=== PATIENT | female | born 1995 | race Caucasian/White ===

== ENCOUNTER → 2018-03-24 18:35 | Emergency (ER) | payer SELFPAY ==
[2018-03-24 18:36] VITALS: BP 109/65; PULSE 106; RESP 16; TEMP 36.4; O2SAT 97; BMI 24.1
--- NOTE | 2018-03-24 23:13 | ED.RN ---
1934 PT LEFT SAYING THAT SHE CAN'T WAIT ANY LONGER AND WALKED OUT THE DOOR.EMPATHY GIVEN.
== END ==
DX: R69 Illness, unspecified (principal); Z53.21 Procedure and treatment not carried out due to patient leaving prior to being seen by health care provider

== ENCOUNTER 2020-11-30 15:47 | Emergency (ER) | payer MEDICAID, SELFPAY ==
[2020-11-30 15:48] VITALS: BP 134/78; PULSE 93; RESP 16; TEMP 36.6; O2SAT 98; BMI 34.4
--- NOTE | 2020-11-30 16:08 | ED.VIS.FEGU ---
HPI HPI - Female History of Present Illness Chief Complaint: Vag Bld, Preg Informant: patient Pain Pain: Positive for Pelvic Pain Onset: Days Context: Gradual Onset Timing: Intermittent Quality: Positive for Cramping Current Severity: Mild Maximum Severity: Mild Bleeding Issue: Positive for Vaginal bleeding Onset: Yesterday Context: Gradual Onset Timing: Intermittent Current Severity: Spotting and Mild Severity: Mild Associated Symptoms Associated Symptoms: Negative for Dysuria Test: Positive, Urine and Home Sexually: Positive for Active Control: No control P: 2 Ab: 1 Narrative Narrative: home positive urine test.24-year-old female past medical history of factor V Leiden, seizure disorder, depression anxiety and borderline personality. States she thinks she is about 4 weeks . Has had no care. She is on She is Ab1. States that she started having spotting last night and today bleeding and cramping. Cramping is been gone last several days. No dysuria no fever. gynecological surgeries. Has had 1 prior miscarriage. No prior Prior similar symptoms: Yes Recent Illness/Hospitalization: No PFSH PFSH Allergy/AdvReac Type Severity Reaction Status Date / Time No Known Allergies Allergy Verified 11/30/20 15:49 Social History Smoking Status: Never smoker ROS ROS ED ROS Narrative No recent illness. Review of Systems ROS Unobtainable: Denies due to encephalopathy Constitutional Constitutional ED: Denies chills or fever(s) Eyes Eyes: Denies change in vision ENT ENT ED: Denies ear pain or sore throat Cardiovascular Cardiovascular: Denies chest pain Respiratory/Chest Respiratory/Chest: Denies cough or dyspnea Gastrointestinal Gastrointestinal: Reports abdominal pain; Denies diarrhea, nausea or vomiting Genitourinary Genitourinary ED: Denies dysuria Musculoskeletal Musculoskeletal: Denies myalgias Integumentary Denies rash Neurologic Neurologic: Denies headache(s) Psychiatric Psychiatric: Reports anxiety and depression Endocrine Endocrinology: Denies polyuria Hematologic/Lymphatic Hematologic/Lymphatic: Denies easy bruising Allergic/Immunologic Allergic/Immunologic ED: Denies urticaria EXAM Physical Exam Narrative Exam Narrative: Healthy female no acute distress. Vital signs stable afebrile. Lungs are clear. Heart regular rate and rhythm. Abdomen soft nontender. On Eliquis moving all 4 extremities. No edema. Const Vital Signs: 11/30/20 15:48 Temperature 97.8 F Temperature Source Temporal Pulse Rate 93 Respiratory Rate 16 Blood Pressure 134/78 H Blood Pressure Mean 96 Pulse Ox 98 Oxygen Delivery Method Room Air Positive well nourished and well developed General Appearance ED: well developed HEENT Reports moist mucous membranes Negative for tenderness Eyes PERRL and EOMs intact bilaterally Neck no lymphadenopathy, supple and no JVD Thyroid: Negative for tender Chest Wall inspection of chest normal and palpation of chest normal Resp normal respiratory effort and clear to auscultation bilaterally Cardio regular rate, regular rhythm, S1 normal heart sound, no murmurs and no JVD GI normal to inspection, nondistended, normoactive bowel sounds, soft to palpation, non-tender and non-distended Auscultation: normoactive bowel sounds no CVA tenderness Extremity normal to inspection and full ROM General Extremety ED: Negative for edema or tenderness General Extremity: Negative for edema Neuro oriented x3, CN's II-XII intact bilaterally and no sensory deficits noted Sensorium / Orientation: alert, oriented to person, oriented to place and oriented to time Psych mental status grossly normal Mood & Affect: Negative for depressed or tearful Skin no rashes or lesions noted and no wounds MDM MDM MDM Narrative Medical decision making narrative: Female believes she is Ab1 with cramping and vaginal bleeding. Concern obviously for miscarriage versus ectopic versus other etiologies. Labs along with an ABO Rh, UA and ultrasound are pending. Lab Data Attestation: I reviewed the patient's lab results. Lab results narrative: H&H normal hemoglobin 13. UA with blood but otherwise no signs of infection is most likely contaminant from the vaginal bleeding. Blood type A - positive. Quant was less than 1 so the patient was either never or has had a miscarriage. Labs: Laboratory Results - last 24 hr 11/30/20 11/30/20 11/30/20 16:50 17:01 17:01 Hgb 13.3 Hct 41.4 HCG, Quant < 1 Urine Color Yellow Urine Clarity Clear Urine pH 6.[address] [place] 1.020 Urine Protein Negative Urine Glucose (UA) Normal Urine Ketones Negative Urine Occult Blood 250 H Urine Nitrite Negative Urine Bilirubin Negative Urine Urobilinogen Normal Ur Leukocyte Esterase Negative Urine RBC 0-5 SEEN Urine WBC 0 SEEN Ur Squamous Epith Cells 0-5 SEEN Urine Bacteria RARE Urine Mucus 0 SEEN Blood Type 11/30/20 11/30/20 17:01 17:01 Hgb Hct HCG, Quant Urine Color Urine Clarity Urine pH Ur Specific [place] Urine Protein Urine Glucose (UA) Urine Ketones Urine Occult Blood Urine Nitrite Urine Bilirubin Urine Urobilinogen Ur Leukocyte Esterase Urine RBC Urine WBC Ur Squamous Epith Cells Urine Bacteria Urine Mucus Blood Type TNP A POSITIVE Discharge Plan Triage Chief Complaint: Vag Bld, Preg ED Provider: Morris Lynn Dx/Rx/DC Orders Clinical Impression: Vaginal bleeding, Spontaneous miscarriage Instructions: ED Dysfunctional Uterine Bleeding, ED MISCARRIAGE Completed Primary Care Provider: Bharat Villagomez Referrals: Bharat Villagomez DO [Primary Care Provider] - As Needed Activity Restrictions/Additional Instructions: Your labs are unremarkable. Your test is negative. You are either never are just having some vaginal bleeding with a late menstrual cycle or you were had a miscarriage. Follow-up with your TILLER MAN. For your information your blood type is a positive. Disposition Disposition: Home, self care
[2020-11-30 16:57] LABS: Mucous, Urine 0 SEEN /hpf (<or=2+); White Blood Cells 0 SEEN /hpf (0-5)
[2020-11-30 16:58] LABS: Color, Urine Yellow (Yellow); Glucose, Dipstick Normal (Normal); Ketone-Dipstick Negative (Negative); Leukocyte Esterase-Dipstick Negative /ul (Negative); Nitrite-Dipstick Negative (Negative); Occult Blood-Urine 250 /ul (Negative); Protein-Dipstick Negative (Negative); Urine Bilirubin Dipstick Negative (Negative); Urine Clarity Clear (Clear); Urine Urobilinogen Normal (Normal)
[2020-11-30 17:04] LABS: Bacteria RARE /hpf (None Seen); Red Blood Cells-Urine 0-5 SEEN /hpf (0-5); Squamous Epithelial Cells - UA 0-5 SEEN /hpf (5-10)
[2020-11-30 17:23] LABS: Hematocrit 41.4 % (37-47); Hemoglobin 13.3 g/dL (12.0-15.0)
[2020-11-30 18:06] LABS: hCG Titer Quant., Serum < 1 mIU/mL (1-3)
== END 2020-11-30 18:58 | disposition home or self-care (01) ==
PROVIDERS: Emergency Provider Emergency Medicine; PCP Family Medicine
DX: O03.9 Complete or unspecified spontaneous abortion without complication (principal)
CPT/HCPCS: 81001; 84702; 85014; 85018; 86900; 86901; 99283

== ENCOUNTER 2021-07-12 12:49 | Emergency (ER) | payer MEDICAID, SELFPAY ==
[2021-07-12 12:49] VITALS: BP 137/83; PULSE 95; RESP 18; TEMP 36.4; O2SAT 100; BMI 35.2
--- NOTE | 2021-07-12 13:13 | US_ITS ---
STUDY: FIRST TRIMESTER OBSTETRICAL ULTRASOUND REASON FOR EXAM: Female, 25 years old Bleeding, Pain LMP: 05/29/2021. TECHNIQUE: Transvaginal TECHNICAL QUALITY: Adequate. PRIOR ULTRASOUND: None. FINDINGS: There is no demonstrated intrauterine gestational sac. There is no demonstrated yolk sac. The placenta is non-visualized. There is no demonstrated embryo ( pole). The estimated gestation age (EGA) by LMP is 6 weeks, 2 days. The estimated date of delivery (JANE) by LMP is 03/05/2022. The uterus measures 6.7 cm x 5.4 cm x 4.2 cm. The endometrium measures 7.2 mm. There is an 8 mm x 8 mm x 5 mm fibroid in the body of the uterus. The cervix is closed. The right ovary is not visualized. The left ovary measures 2.7 cm x 2.6 cm x 2.4 cm. There is no left ovarian cyst. There is no visualized left adnexal mass or complex lesion. There is minimal fluid in the cul de sac. US/Transvaginal w/Preg US IMPRESSION: No intrauterine gestational sac is seen. Electronically Signed: Perez Call MD at 15:26 EST ,
--- NOTE | 2021-07-12 13:14 | EDS_ITS ---
HPI <Roly Dubon MD - Last Filed: 07/17/21 14:01> HPI - Female History of Present Illness Chief Complaint: Vag Bld, Preg Narrative Narrative: Patient is a G5, P2 at approximately 6 weeks gestation. She states she saw her CLEANING TEAM MEMBER in [facility] approximately a week ago where they thought that she was only 5 weeks . She had an ultrasound 2 to 3 days ago which showed her at approximately 6 weeks 1 day. She states her last menstrual period was in late April. She thought she was 8 weeks , but according to ultrasound was not. At the time that she was seen she was having vaginal bleeding and cramping. She states after she came home from her appointment, she had increased cramping and is bleeding changing her pad every other hour. [place] lightheaded. While she was told that the baby still had a heartbeat, if she had more bleeding and cramping that she should come to the emergency department for after hours. She presents today because of the continued pain, cramping, and bleeding. When she went to the bathroom prior to arrival she passed a large clot. She has had previous miscarriages and elective . She states she does not really have an established CLEANING TEAM MEMBER. She has been doing home tests and they are getting latrine cleaner. PFSH <Roly Dubon MD - Last Filed: 07/17/21 14:01> [facility] Medical History no medical history Allergy/AdvReac Type Severity Reaction Status Date / Time No Known Allergies Allergy Verified 07/12/21 12:51 Social History Smoking Status: Never smoker ROS <Roly Dubon MD - Last Filed: 07/17/21 14:01> ROS ED ROS Narrative Constitutional: No fever, no chills. HEENT: No sore throat. No neck pain. No loss of vision. No rhinorrhea. Cardiovascular: No chest pain. No palpitations. No pedal edema. Respiratory: No cough, no shortness of breath. Abdominal: Cramping abdominal pain. No nausea. No vomiting. Genitourinary: No dysuria. No hematuria. Positive vaginal bleeding, passing large clot. Musculoskeletal: No myalgias. No arthralgias. Neurologic: No headaches. No dizziness. Positive lightheadedness. Skin: No rash. No change in color. Psychiatric: No depression. No anxiety. EXAM <Roly Dubon MD - Last Filed: 07/17/21 14:01> Physical Exam Narrative Exam Narrative: Afebrile. Vital signs noted. HEENT: Normocephalic. Atraumatic. PERRL, EOMI. Neck soft and supple. No point tenderness or step off. Cardiovascular: Regular rate and rhythm. No murmurs, rubs, or gallops appreciated. Respiratory: No tachypnea. Lungs clear to auscultation bilaterally. Gastrointestinal: Abdomen soft, nontender, with normoactive bowel sounds. No rebound or guarding. Genitourinary: Chaperoned pelvic examination shows external blood with a mild amount of blood in the vaginal vault. Minimal suprapubic discomfort, no cervical motion tenderness. No adnexal tenderness. Neurological: Awake. Alert. Nonfocal, nonlateralizing. Skin: No rash. Normal color. No pallor. Musculoskeletal: No pedal edema. Full range of motion extremities. Const Vital Signs: 07/12/21 12:49 07/12/21 17:58 Temperature 97.5 F L Temperature Source Temporal Pulse Rate 95 Respiratory Rate 18 14 Blood Pressure 137/83 H Blood Pressure Mean 101 Pulse Ox 100 Oxygen Delivery Method Room Air <Dr. Osvaldo Terrell DO - Last Filed: 07/12/21 18:06> Physical Exam Const Vital Signs: 07/12/21 12:49 07/12/21 17:58 Temperature 97.5 F L Temperature Source Temporal Pulse Rate 95 Respiratory Rate 18 14 Blood Pressure 137/83 H Blood Pressure Mean 101 Pulse Ox 100 Oxygen Delivery Method Room Air MDM <Roly Dubon MD - Last Filed: 07/17/21 14:01> [facility] Narrative Medical decision making narrative: Chaperoned pelvic exam will be performed. This was documented in the physical exam. She has normal white count of 7.9, hemoglobin normal at 13.6, normal platelet count of 288. hCG quantitative measurement is low for her weeks gestation at 102. Blood type is A+. I do feel that she may have had a miscarriage given her low beta quantitative measurement. Her expected for 6 to 8 weeks is 15,000-200,000. She states that she prefers to follow-up with her CLEANING TEAM MEMBER at [facility]. The results of her ultrasound are currently pending.At this point in time, Patient signed out to the oncoming physician to check the ultrasound results and make final disposition. Should her ultrasound results show no IUP, with a quant of 102, I do feel that she most likely had a spontaneous miscarriage. In discussion with the patient once again, she states she would like to follow-up with her own OB. Patient signed out to oncoming physician in stable condition. Lab Data Labs: Laboratory Results - last 24 hr 07/12/21 07/12/21 07/12/21 14:05 14:05 14:05 WBC 7.9 RBC 4.78 Hgb 13.6 Hct 42.1 MCV 88.1 MCH 28.5 MCHC 32.3 RDW Std Deviation 43.6 RDW Coeff of Cheryl 13.3 Plt Count 288 MPV 9.7 Immature Gran % (Auto) 0.100 Neut % (Auto) 69.3 Lymph % (Auto) 21.8 [place] % (Auto) 7.8 Eos % (Auto) 0.6 Baso % (Auto) 0.4 Absolute Neuts (auto) 5.5 Absolute Lymphs (auto) 1.73 Nucleated RBC % 0 HCG, Quant 102 H Blood Type A POSITIVE Radiography Diagnostic Testing: Clinical Impression(s) from Imaging Studies Obstetrics Ultrasound 07/12/21 13:13 IMPRESSION: No intrauterine gestational sac is seen. Electronically Signed: Perez Call MD at 15:26 EST Reading Location ID and State: [address] [facility] , Service support , <Dr. Osvaldo Terrell, DO - Last Filed: 07/12/21 18:06> [facility] Narrative Medical decision making narrative: Patient signed out to me for follow-up on obstetrics ultrasound. This is read by the radiologist as no intrauterine gestational sac. It is reviewed that her hCG is 102. This likely represents complete miscarriage. Patient states that she will follow up with [facility] for her OB care. She is counseled if she has any fevers or increased pelvic pain to return to the emergency room. Lab Data Attestation: I reviewed the patient's lab results. Labs: Laboratory Results - last 24 hr 07/12/21 07/12/21 07/12/21 14:05 14:05 14:05 WBC 7.9 RBC 4.78 Hgb 13.6 Hct 42.1 MCV 88.1 MCH 28.5 MCHC 32.3 RDW Std Deviation 43.6 RDW Coeff of Cheryl 13.3 Plt Count 288 MPV 9.7 Immature Gran % (Auto) 0.100 Neut % (Auto) 69.3 Lymph % (Auto) 21.8 [place] % (Auto) 7.8 Eos % (Auto) 0.6 Baso % (Auto) 0.4 Absolute Neuts (auto) 5.5 Absolute Lymphs (auto) 1.73 Nucleated RBC % 0 HCG, Quant 102 H Blood Type A POSITIVE Radiography Diagnostic Testing: Clinical Impression(s) from Imaging Studies Obstetrics Ultrasound 07/12/21 13:13 IMPRESSION: No intrauterine gestational sac is seen. Electronically Signed: Perez Call MD at 15:26 EST Reading Location ID and State: [address] [place] [address] , Service support , Discharge Plan Triage Chief Complaint: Vag Bld, Preg ED Provider: Roly Dubon Dx/Rx/DC Orders Clinical Impression: Spontaneous miscarriage Instructions: ED MISCARRIAGE Completed Primary Care Provider: Bharat Villagomez Referrals: Bharat Villagomez DO [Primary Care Provider] - Disposition Disposition: Home, Self Care Discharge Date/Time: 07/12/21 18:08
[2021-07-12 14:18] LABS: Absolute Lymphocyte Count 1.73 X10^3/uL (0.83-4.51); Absolute Neutrophil Count 5.5 X10^3/uL (2.0-7.7); Basophil# 0.03 X10^3/uL; Basophil% 0.4 % (0-1); Eosinophil# 0.05 X10^3/uL; Eosinophils% 0.6 % (0-5); Hematocrit 42.1 % (37-47); Hemoglobin 13.6 g/dL (12.0-15.0); Lymphocyte # 1.73 X10^3/ul (0.83-4.51); Lymphocyte % 21.8 % (19-41); Mean Corp Hgb Conc 32.3 g/dL (32-36); Mean Corpuscular Hgb 28.5 pg (27.0-32.0); Mean Corpuscular Volume 88.1 fL (81-99); Mean Platelet Vol. 9.7 fl (6.2-12.0); Monocyte# 0.62 X10^3/uL; Monocyte% 7.8 % (0-10); NRBC Flagged by Analyzer 0 % (0-5); Neutrophil % 69.3 % (47-70); Platelet Count 288 K/mm3 (150-450); RBC Distribution Width CV 13.3 % (11.6-14.6); RBC Distribution Width SD 43.6 fl (35.1-43.9); Red Blood Count 4.78 M/mm3 (4.2-5.4); White Blood Count 7.9 K/mm3 (4.4-11.0)
[2021-07-12 14:27] LABS: hCG Titer Quant., Serum 102 mIU/mL (1-3)
[2021-07-12 17:58] VITALS: RESP 14
[2021-07-12 18:08] VITALS: BP 133/74; PULSE 81; RESP 14; O2SAT 99
== END 2021-07-12 18:08 | disposition home or self-care (01) ==
PROVIDERS: Emergency Provider Emergency Medicine; PCP Family Medicine; Visit Provider Emergency Medicine
DX: O03.9 Complete or unspecified spontaneous abortion without complication (principal)
CPT/HCPCS: 76817; 84702; 85025; 86900; 86901; 99285; A4216

== ENCOUNTER 2022-02-12 11:38 | Emergency (ER) | payer MEDICAID, SELFPAY ==
[2022-02-12 11:39] VITALS: BP 129/69; PULSE 84; RESP 16; TEMP 36.7; O2SAT 98; BMI 32.4
--- NOTE | 2022-02-12 11:59 | ED.VIS.FEGU ---
HPI HPI - Female History of Present Illness Chief Complaint: Vag Bleeding Informant: patient Bleeding Issue: Positive for Vaginal bleeding and Passing clots Onset: Today and Hours Context: Gradual Onset Timing: Continuous Current Severity: Similar to period Associated Symptoms Associated Symptoms: Negative for Dysuria P: 2 Ab: 3 Narrative Narrative: 26-year-old female complaining of heavier than normal vaginal bleeding. States her menstrual periods are typically irregular. She is only passing small clots. She called her COMPLIANCE ENGINEER office today when you are evaluated. States she is a little lightheaded. She has a history of factor V Leiden she is not on any blood thinners. She is G5, P2 AB 3 with 1 of those being elective AB. She denies any easy bruising or bloody noses. She is never needed a blood transfusion. Prior similar symptoms: Yes Recent Illness/Hospitalization: No PFSH PFSH Home Medications buspirone 15 mg tablet 15 mg PO BID 02/12/22 [History Last Taken Unknown] lurasidone 80 mg tablet (Latuda) 80 mg PO DAILY 02/12/22 [History Last Taken Unknown] Allergy/AdvReac Type Severity Reaction Status Date / Time No Known Allergies Allergy Verified 02/12/22 11:43 Social History Smoking Status: Current every day smoker tobacco type: cigarettes ROS ROS ED ROS Narrative Vaginal bleeding. Review of Systems ROS Unobtainable: Denies due to encephalopathy Constitutional Constitutional ED: Denies chills or fever(s) Eyes Eyes: Denies blurry vision ENT ENT ED: Denies ear pain Cardiovascular Cardiovascular: Denies chest pain Gastrointestinal Gastrointestinal: Denies abdominal pain Genitourinary Genitourinary ED: Denies dysuria Musculoskeletal Musculoskeletal: Denies arthralgias Integumentary Denies abscess Neurologic Neurologic: Denies headache(s) Psychiatric Psychiatric: Denies anxiety Endocrine Endocrinology: Denies heat intolerance Hematologic/Lymphatic Hematologic/Lymphatic: Denies easy bleeding, easy bruising or lymphadenopathy Allergic/Immunologic Allergic/Immunologic ED: Denies mouth swelling or tongue swelling EXAM Physical Exam Narrative Exam Narrative: 26-year-old female no acute distress vital signs stable afebrile. Initial blood pressure 120/69. Heart rate 84. H EENT exam unremarkable. Lungs are clear. Heart regular rhythm rate about 84 no murmur. Abdomen soft nontender. Moving all 4 extremities. Neurologically she is awake and alert. Benign exam. Const Vital Signs: 02/12/22 11:39 Temperature 98.1 F Temperature Source Temporal Pulse Rate 84 Respiratory Rate 16 Blood Pressure 129/69 H Blood Pressure Mean 89 Pulse Ox 98 Oxygen Delivery Method Room Air Positive well nourished, well developed and obese; Negative for cachectic, contractures or unkempt General Appearance ED: well developed and NAD; Negative for unkempt, cachectic or contractures Nutritional Appearance: obese; Negative for cachectic HEENT Reports moist mucous membranes Negative for trauma or tenderness Eyes PERRL and EOMs intact bilaterally General Eye ED: Negative for pale conjunctiva or scleral icterus Neck no lymphadenopathy, supple and no JVD General: Negative for other Thyroid: Negative for tender Lymph Lymphatic: Negative for other Chest Wall inspection of chest normal and palpation of chest normal Chest: Negative for other Resp normal respiratory effort and clear to auscultation bilaterally Effort and Inspection: Negative for pain with movement Auscultation: Negative for rales, rhonchi or wheezes Cardio regular rate, regular rhythm, S1 normal heart sound, no murmurs and no JVD Rate: Negative for bradycardia Rhythm: Negative for abnormal rhythm GI normal to inspection, nondistended, normoactive bowel sounds, soft to palpation, non-tender, non-distended and no masses Auscultation: normoactive bowel sounds Palpation: Negative for tender, guarding or rigid Back/Spine no CVA tenderness Cervical Spine: Negative for cervical spine tenderness Thoracic Spine / Upper Back: Negative for thoracic spinal tenderness Lumbar Spine / Lower Back: Negative for lumbar spinal tenderness Extremity normal to inspection and full ROM General Extremety ED: Negative for edema or tenderness General Extremity: Negative for edema Neuro oriented x3 and CN's II-XII intact bilaterally Sensorium / Orientation: alert, oriented to person, oriented to place and oriented to time; Negative for confused, lethargic or stuporous Motor Exam: strength 5/5 throughout Psych mental status grossly normal Appearance: Negative for unkempt Attitude: No agitated Speech: No other Mood & Affect: Negative for depressed Skin no rashes or lesions noted and no wounds General Skin Exam: Negative for jaundice Rashes: No rashes noted Trauma: Negative for other MDM MDM MDM Narrative Medical decision making narrative: 26-year-old with vaginal bleeding. CBC and serum test will be obtained. She will be treated with a liter normal saline. Pelvic exam will be performed. Repeat exam at 2:30 PM patient doing well. She is improved with bag of IV fluids. Over test results. We discussed the pelvic exam she deferred at this time we will follow-up with her COMPLIANCE ENGINEER. Lab Data Attestation: I reviewed the patient's lab results. Lab results narrative: CBC normal white count of 5.9. H&H of 12 and 37.3. Platelets 310. Serum test negative. Labs: Laboratory Results - last 24 hr 02/12/22 02/12/22 12:49 12:49 WBC 5.9 RBC 4.15 L Hgb 12.0 Hct 37.3 MCV 89.9 MCH 28.9 MCHC 32.2 RDW Std Deviation 45.1 H RDW Coeff of Cheryl 13.6 Plt Count 310 MPV 10.2 Serum , Qual NEGATIVE Discharge Plan Triage Chief Complaint: Vag Bleeding ED Provider: Morris Lynn Dx/Rx/DC Orders Clinical Impression: Abnormal vaginal bleeding Instructions: ED Dysfunctional Uterine Bleeding Prescriptions: No Action buspirone 15 mg tablet 15 mg PO BID Label Comments: TAKE 1 TABLET BY MOUTH TWICE DAILY Latuda 80 mg tablet 80 mg PO DAILY Label Comments: TAKE 1 TABLET BY MOUTH ONCE DAILY WITH FOOD(AT LEAST 350 CALORIES) Primary Care Provider: Bharat Villagomez Referrals: Bharat Villagomez DO [Primary Care Provider] - Activity Restrictions/Additional Instructions: Motrin and Tylenol for any pelvic pain or cramping. Plenty of fluids and rest. Follow-up with your OB for further evaluation. They can do a pelvic exam if needed. They can recheck your blood count if needed. They can do an ultrasound if needed. Disposition Disposition: Home, Self Care
[2022-02-12] MEDS: 0.9% Normal Saline 1,000 ML 1000 ML IV (12:53)
[2022-02-12 13:00] LABS: Hematocrit 37.3 % (37-47); Mean Corp Hgb Conc 32.2 g/dL (32-36); Mean Corpuscular Hgb 28.9 pg (27.0-32.0); Mean Corpuscular Volume 89.9 fL (81-99); Mean Platelet Vol. 10.2 fl (6.2-12.0); Platelet Count 310 K/mm3 (150-450); RBC Distribution Width CV 13.6 % (11.6-14.6); RBC Distribution Width SD 45.1 fl (35.1-43.9); Red Blood Count 4.15 M/mm3 (4.2-5.4); White Blood Count 5.9 K/mm3 (4.4-11.0)
[2022-02-12 13:25] LABS: Internal QC Validated? YES +Cl - CLEAR BKGD; Pregnancy, Serum, hCG Quali. NEGATIVE Negative
== END 2022-02-12 14:46 | disposition home or self-care (01) ==
PROVIDERS: Emergency Provider Emergency Medicine; PCP Family Medicine; Visit Provider Emergency Medicine
DX: N93.9 Abnormal uterine and vaginal bleeding, unspecified (principal); D68.51 Activated protein C resistance; F17.210 Nicotine dependence, cigarettes, uncomplicated
CPT/HCPCS: 84703; 85027; 96360; 99283; J7030; A4216

== ENCOUNTER 2022-04-27 10:28 | Emergency (ER) | payer MEDICAID, SELFPAY ==
[2022-04-27 10:30] VITALS: BP 126/71; PULSE 90; RESP 18; TEMP 36.7; O2SAT 98; BMI 32.5
--- NOTE | 2022-04-27 10:40 | US_ITS ---
EXAM: US , TRANSVAGINAL CLINICAL INDICATION: vaginal bleeding, abdominal pain TECHNIQUE: Real-time transvaginal obstetrical ultrasound of the maternal pelvis and a first trimester with image documentation. Transvaginal imaging was used for better evaluation of the fetus and adnexa. This report was created using [employer] report generation technology. COMPARISON: None. FINDINGS: GESTATION: Intrauterine gestational sac contains a 2.1 cm embryo with a cardiac rate of 174 bpm. 3.7 mm sac. PLACENTA/AMNIOTIC FLUID: Cannot be adequately evaluated due to the early gestational age. UTERUS/CERVIX: Normal. No myometrial mass. OVARIES: Right ovary measures 4.0 x 2.1 x 2.8 cm. Left ovary measures 1.8 x 1.2 x 1.0 cm. No mass. FREE FLUID: No adnexal mass or free pelvic fluid. US/Transvaginal w/Preg US IMPRESSION: Single live 8 week 4 day intrauterine gestation with ultrasound EDC of December 03, 2022. Electronically Signed: Dimitri Lobo MD at 12:37 EST ,
--- NOTE | 2022-04-27 10:40 | ED.VIS.FEGU ---
HPI HPI - Female History of Present Illness Chief Complaint: Vag Bld, Preg Detail of Chief Complaint: Vaginal bleeding and lower abdominal pain with Informant: patient Narrative Narrative: Patient presents to the emergency department with complaint of vaginal bleeding that she had last evening. Patient states that she passed some mucus that looked like a mucous plug. Patient thinks she is about 9 weeks . Patient had a pelvic ultrasound 2 weeks ago that showed a viable with heartbeat. Patient tells me she has had multiple miscarriages in the past and she is . Patient believes she is about 9 weeks . She denies dysuria. Patient states she is not currently bleeding but passing some stringy mucus. Patient complains of some mild discomfort to the left lower quadrant. Patient has not had a fever. PFSH PFSH Home Medications buspirone 15 mg tablet 15 mg PO BID 02/12/22 [History Last Taken Unknown] lurasidone 80 mg tablet (Latuda) 80 mg PO DAILY 02/12/22 [History Last Taken Unknown] Allergy/AdvReac Type Severity Reaction Status Date / Time No Known Allergies Allergy Verified 04/27/22 10:30 Social History Smoking Status: Current every day smoker tobacco type: cigarettes ROS ROS ED Review of Systems ROS Unobtainable: other Constitutional Constitutional ED: Reports lethargy; Denies chills, fever(s), sweats or weight loss Eyes Eyes: Denies blurry vision, change in vision or diplopia ENT ENT ED: Denies rhinorrhea or sore throat Cardiovascular Cardiovascular: Denies chest pain, orthopnea or racing heartbeat Respiratory/Chest Respiratory/Chest: Denies cough, dyspnea, dyspnea on exertion, orthopnea or sputum Gastrointestinal Gastrointestinal: Reports abdominal pain; Denies diarrhea, nausea or vomiting Genitourinary Genitourinary ED: Reports other Details: Vaginal bleeding ; Denies dysuria, hematuria or urinary frequency Musculoskeletal Musculoskeletal: Denies arthralgias, back pain, myalgias or neck pain Integumentary Denies abscess, Abrasions or rash Neurologic Neurologic: Denies headache(s) or weakness Psychiatric Psychiatric: Denies anxiety, depression or suicidal thoughts Endocrine Endocrinology: Denies polydipsia, polyphagia or polyuria Hematologic/Lymphatic Hematologic/Lymphatic: Denies easy bleeding, easy bruising or lymphadenopathy Allergic/Immunologic Allergic/Immunologic ED: Denies mouth swelling, tongue swelling or urticaria EXAM Physical Exam Const Vital Signs: 04/27/22 10:30 Temperature 98.1 F Temperature Source Temporal Pulse Rate 90 Respiratory Rate 18 Blood Pressure 126/71 H Blood Pressure Mean 89 Pulse Ox 98 Oxygen Delivery Method Room Air Positive well nourished and well developed General Appearance ED: well developed and NAD HEENT Reports TM's clear and moist mucous membranes normocephalic and atraumatic; Negative for trauma or tenderness Tympanic Membrane ED: Yes TM's clear Eyes PERRL and EOMs intact bilaterally General Eye ED: Negative for pale conjunctiva or scleral icterus Neck no lymphadenopathy, supple and no JVD General: Negative for tenderness Chest Wall inspection of chest normal and palpation of chest normal Chest: Negative for tenderness Resp normal respiratory effort and clear to auscultation bilaterally Effort and Inspection: Negative for respiratory distress or pain with movement Auscultation: Negative for rhonchi, wheezes or diminished lung sounds Cardio regular rate, regular rhythm, S1 normal heart sound, S2 normal heart sound and no murmurs Peripheral Pulses: pulses 2+ throughout GI normal to inspection, nondistended, normoactive bowel sounds, soft to palpation, non-tender, non-distended and no masses Back/Spine no CVA tenderness and no thoracic nor lumbar tenderness Extremity normal to inspection General Extremety ED: Negative for edema General Extremity: Negative for edema Neuro oriented x3, CN's II-XII intact bilaterally, no sensory deficits noted and gait normal Sensorium / Orientation: awake, alert, oriented to person, oriented to place and oriented to time Motor Exam: strength 5/5 throughout and strength abnormal Psych mental status grossly normal Skin no rashes or lesions noted and no wounds MDM MDM MDM Narrative Medical decision making narrative: IV line established on arrival. H&H was normal. hCG quant was 93,689. Urinalysis unremarkable. Pelvic ultrasound showed single live IUP measuring 8 weeks 4 days with heart rate 174 bpm. At this point patient will be discharged home and advised to follow-up with her AIR CONDITIONING ENGINEER within next 3 to 5 days. Patient to return if persistent heavy bleeding or severe abdominal pain. Her blood type is a positive and will not require any RhoGAM. Lab Data Attestation: I reviewed the patient's lab results. Labs: Laboratory Results - last 24 hr 1104/27/22 04/27/22 10:50 10:50 12:55 WBC 8.1 RBC 4.34 Hgb 12.4 Hct 38.6 MCV 88.9 MCH 28.6 MCHC 32.1 RDW Std Deviation 43.0 RDW Coeff of Cheryl 13.1 Plt Count 348 MPV 9.8 Immature Gran % (Auto) 0.200 Neut % (Auto) 72.2 H Lymph % (Auto) 16.4 L Simpson % (Auto) 10.3 H Eos % (Auto) 0.5 Baso % (Auto) 0.4 Absolute Neuts (auto) 5.9 Absolute Lymphs (auto) 1.33 Nucleated RBC % 0 HCG, Quant 01237 H Urine Color Straw Urine Clarity Clear Urine pH 6.0 Ur Specific [place] 1.010 Urine Protein Negative Urine Glucose (UA) Normal Urine Ketones 15 H Urine Occult Blood Negative Urine Nitrite Negative Urine Bilirubin Negative Urine Urobilinogen Normal Ur Leukocyte Esterase Negative Radiography Diagnostic Testing: Clinical Impression(s) from Imaging Studies Obstetrics Ultrasound 04/27/22 10:40 IMPRESSION: Single live 8 week 4 day intrauterine gestation with ultrasound EDC of December 03, 2022. Electronically Signed: Dimitri Lobo MD at 12:37 EST , Discharge Plan Triage Chief Complaint: Vag Bld, Preg ED Provider: Kalee Terrell Dx/Rx/DC Orders Clinical Impression: Threatened in first trimester Instructions: ED Possible Miscarriage ... Prescriptions: No Action buspirone 15 mg tablet 15 mg PO BID Label Comments: TAKE 1 TABLET BY MOUTH TWICE DAILY Latuda 80 mg tablet 80 mg PO DAILY Label Comments: TAKE 1 TABLET BY MOUTH ONCE DAILY WITH FOOD(AT LEAST 350 CALORIES) Primary Care Provider: Bharat Villagomez Referrals: Bharat Villagomez DO [Primary Care Provider] - Activity Restrictions/Additional Instructions: See your AIR CONDITIONING ENGINEER within next 3 to 5 days. Disposition Disposition: Home, Self Care
[2022-04-27 10:59] LABS: Absolute Lymphocyte Count 1.33 X10^3/uL (0.83-4.51); Absolute Neutrophil Count 5.9 X10^3/uL (2.0-7.7); Basophil# 0.03 X10^3/uL; Basophil% 0.4 % (0-1); Eosinophil# 0.04 X10^3/uL; Eosinophils% 0.5 % (0-5); Hematocrit 38.6 % (37-47); Hemoglobin 12.4 g/dL (12.0-15.0); Lymphocyte # 1.33 X10^3/ul (0.83-4.51); Lymphocyte % 16.4 % (19-41); Mean Corp Hgb Conc 32.1 g/dL (32-36); Mean Corpuscular Hgb 28.6 pg (27.0-32.0); Mean Corpuscular Volume 88.9 fL (81-99); Mean Platelet Vol. 9.8 fl (6.2-12.0); Monocyte# 0.84 X10^3/uL; Monocyte% 10.3 % (0-10); NRBC Flagged by Analyzer 0 % (0-5); Neutrophil # 5.87 X10^3/uL (2.7-7.7); Neutrophil % 72.2 % (47-70); Platelet Count 348 K/mm3 (150-450); RBC Distribution Width CV 13.1 % (11.6-14.6); Red Blood Count 4.34 M/mm3 (4.2-5.4); White Blood Count 8.1 K/mm3 (4.4-11.0)
[2022-04-27 12:59] LABS: Bacteria 0 SEEN /hpf (None Seen); Mucous, Urine 0 SEEN /hpf (<or=2+); Red Blood Cells-Urine 0 SEEN /hpf (0-5); Squamous Epithelial Cells - UA 0 SEEN /hpf (5-10); White Blood Cells 0 SEEN /hpf (0-5)
[2022-04-27 13:03] LABS: Color, Urine Straw (Yellow); Glucose, Dipstick Normal (Normal); Ketone-Dipstick 15 mg/dl (Negative); Leukocyte Esterase-Dipstick Negative /ul (Negative); Nitrite-Dipstick Negative (Negative); Occult Blood-Urine Negative /ul (Negative); Protein-Dipstick Negative (Negative); Urine Bilirubin Dipstick Negative (Negative); Urine Clarity Clear (Clear); Urine Urobilinogen Normal (Normal)
== END 2022-04-27 13:25 | disposition home or self-care (01) ==
PROVIDERS: Emergency Provider Emergency Medicine; PCP Family Medicine; Visit Provider Emergency Medicine
DX: O20.0 Threatened abortion (principal); O99.331 Smoking (tobacco) complicating pregnancy, first trimester; F17.210 Nicotine dependence, cigarettes, uncomplicated; Z3A.08 8 weeks gestation of pregnancy
CPT/HCPCS: 76817; 81001; 84702; 85025; 99283; A4216

== ENCOUNTER 2024-03-03 12:35 | Emergency (ER) | payer MEDICAID, SELFPAY ==
[2024-03-03] VITALS (7 sets, daily range): BP systolic 96–120; BP diastolic 59–67; PULSE 71–84; RESP 14–18; TEMP 36.8; O2SAT 97–98; BMI 26.9
[2024-03-03] MEDS: 0.9% Normal Saline (1000mL) 1,000 ML 1000 ML IV (13:25)
[2024-03-03 13:35] LABS: Absolute Lymphocyte Count 1.21 X10^3/uL (0.83-4.51); Absolute Neutrophil Count 5.4 X10^3/uL (2.0-7.7); Basophil# 0.04 X10^3/uL; Basophil% 0.5 % (0-1); Eosinophil# 0.04 X10^3/uL; Eosinophils% 0.5 % (0-5); Hematocrit 35.4 % (37-47); Hemoglobin 11.7 g/dL (12.0-15.0); Lymphocyte # 1.21 X10^3/ul (0.83-4.51); Lymphocyte % 16.5 % (19-41); Mean Corp Hgb Conc 33.1 g/dL (32-36); Mean Corpuscular Hgb 28.6 pg (27.0-32.0); Mean Corpuscular Volume 86.6 fL (81-99); Mean Platelet Vol. 10.1 fl (6.2-12.0); Monocyte# 0.62 X10^3/uL; Monocyte% 8.4 % (0-10); NRBC Flagged by Analyzer 0 % (0-5); Neutrophil # 5.39 X10^3/uL (2.7-7.7); Neutrophil % 73.4 % (47-70); Platelet Count 277 K/mm3 (150-450); RBC Distribution Width SD 44.5 fl (35.1-43.9); Red Blood Count 4.09 M/mm3 (4.2-5.4); White Blood Count 7.4 K/mm3 (4.4-11.0)
[2024-03-03 13:44] LABS: Internal QC Validated? YES +Cl - CLEAR BKGD
[2024-03-03 13:46] LABS: Pregnancy, Serum, hCG Quali. POSITIVE Negative
[2024-03-03 13:53] LABS: ALB/GLOB Ratio 0.8 RATIO (0.9-2.4); AST(SGOT) 14 U/L (15-37); Alanine Aminotransfer ALT/SGPT 12 U/L (13-56); Alkaline Phosphatase 57 U/L (45-117); Anion Gap 6 (5-15); BUN 6 mg/dL (7-18); BUN/Creat Ratio 14.6 RATIO (10-20); Calcium,Total 9.1 mg/dL (8.5-10.1); Chloride 106 mmol/L (98-107); Creatinine, Serum 0.41 mg/dL (0.55-1.02); EST Glomerular Filtration Rate 197 mL/min (>60); Est Glom Filt Rate - Afr Amer 238 mL/min (>60); Estimated Creatinine Clearance 199.45 ml/min; Globulin 3.8 g/dL (2.2-4.2); Glucose 79 mg/dL (74-106); Potassium 3.6 mmol/L (3.5-5.1); Protein, Total 6.8 g/dL (6.4-8.2); Sodium Level 136 mmol/L (136-145)
[2024-03-03 13:54] LABS: Lipase 30 U/L (13-75)
[2024-03-03 14:20] LABS: hCG Titer Quant., Serum 5130 mIU/mL (1-3)
[2024-03-03 14:31] LABS: Mucous, Urine 0 SEEN /hpf (<or=2+); Red Blood Cells-Urine 0 SEEN /hpf (0-5); White Blood Cells 0 SEEN /hpf (0-5)
[2024-03-03 14:40] LABS: Glucose, Dipstick Normal (Normal); Ketone-Dipstick 15 mg/dl (Negative); Leukocyte Esterase-Dipstick Negative /ul (Negative); Nitrite-Dipstick Negative (Negative); Occult Blood-Urine Negative /ul (Negative); Protein-Dipstick Negative (Negative); Specific Gravity, Urine 1.005 (1.002-1.030); Urine Bilirubin Dipstick Negative (Negative); Urine Urobilinogen Normal (Normal)
[2024-03-03 14:50] LABS: Color, Urine Yellow (Yellow); Urine Clarity Clear (Clear)
[2024-03-03 14:55] LABS: Amorphous Sediment 1+; Bacteria 1+ /hpf (None Seen); Squamous Epithelial Cells - UA 0-5 SEEN /hpf (5-10)
--- NOTE | 2024-03-03 15:13 | EX.ED.DYSGE1 ---
HPI History of Present Illness Chief Complaint: Abd Pain Informant: patient Onset/Context/Timing Onset: Days (2-3) Context: Gradual Onset Timing: Continuous Quality: Aching, cramping Location: Epigastric area and back Worsened by: Eating, drinking Relieved by: Nothing Narrative Narrative: Patient presents with nausea, vomiting, dizziness, and lightheadedness that has been getting worse over the past 2 to 3 days. Patient states she has aching and cramping over her upper abdomen. Patient states it is worse with eating and drinking. Patient states that has been constant. Patient admits to some nausea and vomiting. Patient states she is having difficulty keeping anything down. Patient states she is approximately 22 weeks . Patient denies any fevers or chills. Patient denies any swelling. Patient states her vision has become blurry intermittently. [facility] Medical History (Updated 03/03/24 @ 15:[address] Gildardo Dunlap, DO) Anxiety Depression Factor V Leiden Seizure disorder Gallstones Home Medications ?Medication ?Instructions ?Recorded ?Last Taken ?Type buspirone 15 mg tablet 15 mg PO BID 02/12/22 Unknown History lurasidone 80 mg tablet (Latuda) 80 mg PO DAILY 02/12/22 Unknown History ondansetron 4 mg disintegrating 4 mg PO Q8H PRN PRN Nausea #10 tabs 03/03/24 Unknown Rx tablet Allergy/AdvReac Type Severity Reaction Status Date / Time No Known Allergies Allergy Verified 03/03/24 12:38 Surgical History no surgical history no surgical history Social History (Updated 03/03/24 @ 15:[address] Gildardo Dunlap, DO) Smoking Status: Current every day smoker tobacco type: cigarettes substance use type: marijuana ROS ROS ED Constitutional Constitutional ED: Reports chills and subjective; Denies fever(s) Eyes Eyes: Reports blurry vision; Denies diplopia ENT ENT ED: Denies rhinorrhea or sore throat Cardiovascular Cardiovascular: Denies chest pain or palpitations Respiratory/Chest Respiratory/Chest: Denies cough or dyspnea Gastrointestinal Gastrointestinal: Reports abdominal pain, diarrhea, nausea and vomiting Genitourinary Genitourinary ED: Denies dysuria or hematuria Musculoskeletal Musculoskeletal: Reports back pain; Denies neck pain Integumentary Denies abscess or rash Neurologic Neurologic: Reports headache(s) and weakness Allergic/Immunologic Allergic/Immunologic ED: Denies mouth swelling or urticaria EXAM Physical Exam Const Vital Signs: 03/03/24 12:35 03/03/24 13:30 03/03/24 14:00 Temperature 98.2 F Temperature Source Temporal Pulse Rate 77 72 Pulse Rate [Lying] Pulse Rate [Sitting (for 1 minute prior to obtaining)] Pulse Rate [Standing (for 1 minute prior to obtaining)] Respiratory Rate 14 Blood Pressure 120/60 105/63 105/62 Blood Pressure [Lying] Blood Pressure [Sitting (for 1 minute prior to obtaining)] Blood Pressure [Standing (for 1 minute prior to obtaining)] Blood Pressure Mean 80 76 75 Blood Pressure Mean [Lying] Blood Pressure Mean [Sitting (for 1 minute prior to obtaining)] Blood Pressure Mean [Standing (for 1 minute prior to obtaining)] Pulse Ox 97 97 98 Oxygen Delivery Method Room Air 03/03/24 15:00 03/03/24 15:43 Temperature Temperature Source Pulse Rate 84 Pulse Rate [Lying] 76 Pulse Rate [Sitting (for 1 minute prior to obtaining)] 77 Pulse Rate [Standing (for 1 minute prior to obtaining)] 78 Respiratory Rate Blood Pressure 101/59 L Blood Pressure [Lying] 96/66 Blood Pressure [Sitting (for 1 minute prior to obtaining)] 103/67 Blood Pressure [Standing (for 1 minute prior to obtaining)] 105/61 Blood Pressure Mean 73 Blood Pressure Mean [Lying] 76 Blood Pressure Mean [Sitting (for 1 minute prior to obtaining)] 79 Blood Pressure Mean [Standing (for 1 minute prior to obtaining)] 75 Pulse Ox Oxygen Delivery Method Positive well nourished and well developed General Appearance ED: well developed and NAD HEENT Reports moist mucous membranes Neck supple and no JVD Resp normal respiratory effort and clear to auscultation bilaterally Cardio regular rate and regular rhythm GI non-distended Palpation: soft and tender epigastric, LUQ, RUQ and Valles's sign Extremity normal to inspection General Extremety ED: Negative for edema or tenderness General Extremity: Negative for edema Neuro oriented x3, CN's II-XII intact bilaterally and no sensory deficits noted Sensorium / Orientation: alert Motor Exam: strength 5/5 throughout Psych mental status grossly normal Skin no rashes or lesions noted MDM MDM MDM Narrative Medical decision making narrative: Differential diagnosis includes -induced hypertension, preeclampsia, HELLP syndrome, cholecystitis, cholelithiasis, gastritis, gastroesophageal reflux disease, dehydration, and urinary tract infection. CBC will be obtained to assess for leukocytosis and anemia. Comprehensive metabolic profile will be obtained to assess for hepatic function, renal function, and electrolyte abnormality. Lipase will be obtained to assess for pancreatitis. Quantitative hCG will be obtained to assess for . Urinalysis will be obtained to assess for urinary tract infection and hematuria. Lab Data Attestation: I reviewed the patient's lab results. Lab results narrative: CBC was reviewed. There is a mild anemia with a hemoglobin of 11.7 and hematocrit of 35.4. Comprehensive metabolic profile was reviewed and was essentially within normal limits. Lipase was reviewed and was normal at 30. Quantitative hCG was reviewed and was 5130. Urinalysis was reviewed and was within normal limits. Labs: Laboratory Results - last 24 hr 03/03/24 03/03/24 13:20 14:09 WBC 7.4 RBC 4.09 L Hgb 11.7 L Hct 35.4 L MCV 86.6 MCH 28.6 MCHC 33.1 RDW Std Deviation 44.5 H RDW Coeff of Cheryl 14.0 Plt Count 277 MPV 10.1 Immature Gran % (Auto) 0.700 Neut % (Auto) 73.4 H Lymph % (Auto) 16.5 L [place] % (Auto) 8.4 Eos % (Auto) 0.5 Baso % (Auto) 0.5 Absolute Neuts (auto) 5.4 Absolute Lymphs (auto) 1.21 Nucleated RBC % 0 Sodium 136 Potassium 3.6 Chloride 106 Carbon Dioxide 24.0 Anion Gap 6 BUN 6 L Creatinine 0.41 L Estim Creat Clear Calc 199.45 Est GFR (MDRD) Af Amer 238 Est GFR (MDRD) Non-Af 197 BUN/Creatinine Ratio 14.6 Glucose 79 Calcium 9.1 Total Bilirubin 0.30 AST 14 L ALT 12 L Alkaline Phosphatase 57 Total Protein 6.8 Albumin 3.0 L Globulin 3.8 Albumin/Globulin Ratio 0.8 L Lipase 30 HCG, Quant 5130 H Serum , Qual POSITIVE H Urine Color Yellow Urine Clarity Clear Urine pH 7.0 Ur Specific [place] 1.005 Urine Protein Negative Urine Glucose (UA) Normal Urine Ketones 15 H Urine Occult Blood Negative Urine Nitrite Negative Urine Bilirubin Negative Urine Urobilinogen Normal Ur Leukocyte Esterase Negative Urine RBC 0 SEEN Urine WBC 0 SEEN Ur Squamous Epith Cells 0-5 SEEN Amorphous Sediment 1+ Urine Bacteria 1+ Urine Mucus 0 SEEN Treatment and Re-Evaluation :: Smoking cessation was discussed. heart tones were obtained and were 160. Patient was given IV fluids. Orthostatic vital signs were obtained and were negative. Patient is feeling better on reevaluation. Patient was advised of her findings. Patient was advised that her gallstones may be causing her pain but since the patient does not have a leukocytosis and has normal liver function test, I do not feel the patient requires emergent cholecystectomy. Case was discussed with Danyelle Rojas, nurse manager outpatient, she is agreeable to follow-up with the patient as an outpatient. Patient was instructed to avoid fried foods, fatty foods, and greasy foods. Patient was instructed to follow-up with her WEB SEARCH EVALUATOR in 3 to 5 days. Patient was instructed to return if worse in any way. Patient understood and was agreeable with the plan. All questions were answered. Discharge Plan Triage Chief Complaint: Abd Pain ED Provider: Gildardo Dunlap Dx/Rx/DC Orders Clinical Impression: Abdominal pain, Nausea and vomiting, Instructions: ED , ED Vomiting (Adult) Prescriptions: New ondansetron 4 mg tablet,disintegrating 4 mg PO Q8H PRN PRN (Reason: Nausea) Qty: 10 0RF No Action buspirone 15 mg tablet 15 mg PO BID Patient Comments: TAKE 1 TABLET BY MOUTH TWICE DAILY Latuda 80 mg tablet 80 mg PO DAILY Patient Comments: TAKE 1 TABLET BY MOUTH ONCE DAILY WITH FOOD(AT LEAST 350 CALORIES) Primary Care Provider: Rosana Evans Referrals: Danyelle Gutierrez CNM [Med Staff - Adv Practice Prof] - 3-5 Days Rosana Evans SHOT POLISHER-C [Primary Care Provider] - 5-7 Days Print Language: Amharic Disposition Disposition: Home, Self Care
== END 2024-03-03 16:31 | disposition home or self-care (01) ==
PROVIDERS: Emergency Provider Emergency Medicine; PCP Nurse Practitioner Family; Referring Provider Emergency Medicine; Visit Provider Emergency Medicine
DX: O26.892 Other specified pregnancy related conditions, second trimester (principal); F17.210 Nicotine dependence, cigarettes, uncomplicated; O21.9 Vomiting of pregnancy, unspecified; O99.332 Smoking (tobacco) complicating pregnancy, second trimester; R10.9 Unspecified abdominal pain; Z3A.22 22 weeks gestation of pregnancy
CPT/HCPCS: 80053; 81001; 83690; 84702; 84703; 85025; 96360; 96361; 99284; J7030; A4216

== ENCOUNTER 2024-06-27 01:22 | Inpatient (IN) | payer MEDICAID, SELFPAY ==
[2024-06-26 23:46] VITALS: BMI 29.5
[2024-06-26 23:58] VITALS: PULSE 93; O2SAT 99
[2024-06-27] VITALS (22 sets, daily range): BP systolic 97–126; BP diastolic 55–90; PULSE 80–99; RESP 14–20; TEMP 36.4–36.9; O2SAT 91–100
[2024-06-27 02:24] LABS: Absolute Lymphocyte Count 2.17 X10^3/uL (0.83-4.51); Absolute Neutrophil Count 7.1 X10^3/uL (2.0-7.7); Basophil# 0.02 X10^3/uL; Basophil% 0.2 % (0-1); Eosinophil# 0.03 X10^3/uL; Eosinophils% 0.3 % (0-5); Hematocrit 38.3 % (37-47); Hemoglobin 12.5 g/dL (12.0-15.0); Lymphocyte # 2.17 X10^3/ul (0.83-4.51); Lymphocyte % 20.6 % (19-41); Mean Corp Hgb Conc 32.6 g/dL (32-36); Mean Corpuscular Hgb 26.5 pg (27.0-32.0); Mean Corpuscular Volume 81.3 fL (81-99); Monocyte# 1.22 X10^3/uL; Monocyte% 11.6 % (0-10); NRBC Flagged by Analyzer 0 % (0-5); Neutrophil # 7.07 X10^3/uL (2.7-7.7); Neutrophil % 66.9 % (47-70); Platelet Count 322 K/mm3 (150-450); RBC Distribution Width CV 14.2 % (11.6-14.6); RBC Distribution Width SD 41.2 fl (35.1-43.9); Red Blood Count 4.71 M/mm3 (4.2-5.4); White Blood Count 10.6 K/mm3 (4.4-11.0)
[2024-06-27 02:59] LABS: Syphilis Antibodies Non-reactive
[2024-06-27] MEDS: Oxytocin 10 UNITS/ML Vial IM (03:32)
[2024-06-27] MEDS: Oxytocin 15 Units/NS 250ml 15 UNITS/250 ML IV.SOLN 83 UNITS IV (03:33)
[2024-06-27] MEDS: 0.9% Saline Lock 10 ML Syringe IV (03:33)
--- NOTE | 2024-06-27 03:50 | PCM.HP.OB ---
HPI - General General Date of Admission: 06/27/24 HPI Narrative BERTIN MCDUFFIE, is a 28 F who presents in spontaneous onset of labor. Maternal Data Information JANE Calculator Estimated Delivery Date Method Current WG Current Estimate 07/09/24 Manual 38w 2d PFSH PFSH Medical History (Updated 06/27/24 @ 03:53 by Danyelle Gutierrez CNM) History of pre-term labor Infertility Trauma Blood clotting disorder depression Psychiatric disorder Seizures Anxiety Depression Factor V Leiden Seizure disorder Gallstones Home Medications ?Medication ?Instructions ?Recorded ?Last Taken ?Type buspirone 15 mg tablet 15 mg PO BID 02/12/22 Unknown History lurasidone 80 mg tablet (Latuda) 80 mg PO DAILY 02/12/22 Unknown History ondansetron 4 mg disintegrating 4 mg PO Q8H PRN PRN Nausea #10 tabs 03/03/24 Unknown Rx tablet aspirin 81 mg tablet,delayed 81 mg PO DAILY 06/27/24 Unknown History release cyclobenzaprine 10 mg tablet 10 mg PO TID PRN PRN muscle spasm 06/27/24 Unknown History folic acid 1 mg tablet 4 mg PO DAILY 06/27/24 Unknown History lamotrigine 300 mg tablet,extended 300 mg PO 06/27/24 Unknown History release 24 hr lamotrigine 50 mg tablet,extended 50 mg PO DAILY 06/27/24 Unknown History release 24 hr vits no.130-ferrous fum 1 tab PO DAILY 06/27/24 Unknown History 27 mg iron-folic acid 800 mcg tablet ( Vitamin) sertraline 100 mg tablet 100 mg PO DAILY 06/27/24 Unknown History Allergy/AdvReac Type Severity Reaction Status Date / Time No Known Allergies Allergy Verified 06/27/24 00:44 Social History (Updated 03/03/24 @ 15:[address] Gildardo Dunlap, DO) Smoking Status: Current every day smoker tobacco type: cigarettes substance use type: marijuana NST FHR Rate Baby A Baseline: 140 Variability:: Moderate Accelerations:: 15 x 15 Decelerations:: None NST Reactive:: Yes FHR Category:: Category I Uterine Activity:: TOCO reading every 2-3 minutes ROS Eyes Eyes: Denies blurry vision, change in vision or spots in vision ENT HEENT: Denies dizziness or headache(s) Cardiovascular Cardiovascular: Denies abdominal pain, chest pain or dyspnea Respiratory/Chest Respiratory/Chest: Denies cough, dyspnea, shortness of breath at rest or shortness of breath with exertion Gastrointestinal Gastrointestinal: Denies abdominal pain, diarrhea or vomiting Genitourinary Genitourinary: Denies change in urinary stream, difficulty urinating or dysuria Musculoskeletal Musculoskeletal: Reports none Integumentary Integumentary: Denies rash Neurologic Neurologic: Denies dizziness, headache(s), memory loss or weakness Psychiatric Psychiatric: Reports none Vital Signs Vital Signs Vital Signs: 06/26/24 23:58 06/26/24 23:58 06/27/24 00:00 Temperature Temperature Source Pulse Rate 93 Respiratory Rate Blood Pressure 123/90 H BP Systolic 123 BP Diastolic 90 Pulse Ox 99 06/27/24 00:00 06/27/24 00:00 06/27/24 00:00 Temperature Temperature Source Temporal Pulse Rate 88 Respiratory Rate 18 Blood Pressure BP Systolic BP Diastolic Pulse Ox 06/27/24 00:00 06/27/24 03:44 06/27/24 03:44 Temperature 97.9 F Temperature Source Pulse Rate 83 Respiratory Rate Blood Pressure 126/73 H BP Systolic 126 BP Diastolic 73 Pulse Ox 06/27/24 03:44 06/27/24 03:44 06/27/24 03:44 Temperature Temperature Source Pulse Rate 89 Respiratory Rate Blood Pressure BP Systolic BP Diastolic Pulse Ox 91 99 Weight Weight: 177 lb 6.4 oz Body Mass Index (BMI) 29.5 Physical Exam Const alert, oriented x3 and no apparent distress General Appearance: cooperative Orientation / Consciousness: awake Exam Limitations: no limitations HEENT normocephalic Head and Scalp: normal to inspection Eyes General Eye: normal appearance of both eyes Neck full ROM and no lymphadenopathy Lymph Lymphatic: no lymphadenopathy noted Chest inspection of chest normal Resp normal respiratory effort, normal air movement and clear to auscultation bilaterally Effort and Inspection: able to speak in complete sentences and symmetric chest movement Cardio regular rate and regular rhythm GI normal to inspection, nondistended, normoactive bowel sounds Manual OB Exam: presentation cephalic Back/Spine normal ROM Extremity full ROM and no calf tenderness Skin no rashes or lesions noted General Skin Exam: no breakdown Neuro oriented x3 and CN's II-XII intact bilaterally Psych mental status grossly normal and thought process normal Labs Labs Labs: Blood Type A POSITIVE Antibody Screen NEGATIVE Hct 38.3 % (37-47) Hgb 12.5 g/dL (12.0-15.0) Obstetrics Ultrasound Syphilis Total Ab Non-reactive Assessment & Plan (1) Anxiety: (2) Depression: (3) Factor V Leiden: (4) Seizure disorder: (5) Spontaneous onset of labor: (6) History of marijuana use: PLAN: Plan Admit to labor and delivery Routine labs Pain medications/epidural as indicated GBS negative
[2024-06-27] MEDS: Acetaminophen 500 MG Tablet PO (03:55)
--- NOTE | 2024-06-27 03:55 | OB.VAGDELI_ITS ---
Assessment & Plan (1) (spontaneous vaginal delivery): (2) Precipitous delivery: (3) Anxiety: (4) Depression: (5) Factor V Leiden: (6) History of marijuana use: Maternal Data Information JANE Calculator Estimated Delivery Date Method Current WG Current Estimate 07/09/24 Manual 38w 2d Vaginal Delivery Maternal Presentation Maternal Presentation: Active Labor Vaginal Delivery Information Procedure Performed: Spontaneous Vaginal Delivery (precipitous delivery) Date of Procedure: 06/27/24 Pre-Procedure Diagnosis: Term gestation, Spontaneous onset of labor, SROM Post-Procedure Diagnosis: , Live male infant Type of anesthesia: None Estimated Blood Loss: 250 Time of Delivery: 03:26 Findings Description of procedure: Patient quickly progressed to complete dilation. Called to patient's room while infant was delivering in bed by nursing staff. Patient in hands and knees position. Vigorous male was delivered atraumatically. Pitocin IM given for active management of the third stage of labor. 3 vessel cord clamped and cut after delay and infant placed immediately skin to skin with patient. Placenta delivered spontaneously and intact. Cord gasses obtained. After inspection, vagina and perineum are intact. Vaginal sweep performed. Fundus is firm 2 below U and bleeding is hemostatic. Sponge and sharps counts correct. Patient and infant bonding well at this time. Dr. Winchester notified of delivery. Routine post orders placed. Presentation: Vertex Amniotic Membrane Rupture Type: Spontaneous Amniotic Fluid Description: Lightly stained meconium Placental Delivery Description: Spontaneous Placenta Disposition: [facility] Specimen collected: No Cord Vessel Description: 3 Vessels Cord Entanglement: None Nuchal Cord Compression: Without compression Cord Gases: ABG and VBG A Gender: Male (1 minute): 8 (5 minute): 9 Delayed Cord Clamping: Yes Sewing Machine Maintenance Mechanic product development assistant: No Post Vaginal Deli Medications given after delivery: IV Pitocin and IM Pitocin Episiotomy Description: None Laceration: None Complication Complications: No
[2024-06-27] MEDS: Folic Acid 1 MG Tablet 4 MG PO (09:56)
[2024-06-27] MEDS: Prenatal Vits Tablet 1 TABLET PO (09:56)
[2024-06-27] MEDS: Sertraline 100 MG Tablet PO (09:56)
[2024-06-27] MEDS: Acetaminophen 500 MG Tablet 1000 MG PO ×2 (10:43→16:52)
--- NOTE | 2024-06-27 17:30 | NURSING ---
Received in report from [facility] that pt is supposed to be taking Lovenox . When this nurse checked MAR around 1500, no order was present. Called CC office and left a message for JAUN Thomas about Lovenox and whether patient needed to be on it. JAUN came to unit around 1700 and she looked into whether patient needed it and spoke with Dr. Velazquez. At 1715 JAUN gave phone order for Lovenox QD.
[2024-06-27] MEDS: Enoxaparin 40 MG/0.4 ML Syringe SC (18:18)
--- NOTE | 2024-06-27 20:56 | CASEMGMT ---
Social Work Assessment Labor and Delivery Unit Patient Address: [address], [place] [address] Phone number: [phone] Date of Referral: 06/27/2024 Time of Referral:? 00:44 Referred By: Mamie Muller Date of Intervention: ??06/27/2024 Time of Intervention:? 11:00am Reason for Referral:? Substance abuse SW completed chart review and acknowledges social work consult due to substance abuse? SW presented to bedside and introduced self to DARRIN (DARRIN-aNtalia).? SW completed psychosocial assessment.? FOB also at bedside and respectfully participated in parts of conversation. History obtained from: medical records and mother of baby (DARRIN) Household composition): ?DARRIN reports she lives with FOB and their 3 children, older 2 children are not biologically FOB.? MOB denies any concerns with housing. Patient's parent/guardian status: ??DARRIN reports that her and father of baby ([facility]- [facility]) have been known each other since high school, have been together for 10 years and been for 4 years.? DARRIN has two older children, Manda who is 8 and Krishna who is 5, that are not biologically FOB, however neither child?s biological father is involved.? MOB and FOB also have a 1 year old, Isabelle.? MOB report that she had not intended to get with baby, however both MOB and FOB are excited.? Medical History: ?DARRIN is 28 year old female who is 8, para 3 now 4 following labor delivery of .? DARRIN received routine care through [facility].? DARRIN presented to hospital in active labor.? DARRIN delivered on 06/27/2024 at 38 weeks gestation. Baby boy, Shlomo, was born weighing 7 lbs, 6 oz, apgars 8 and 9 at one and five minutes of life. Baby will be followed by Julia Berman, [facility] pediatric nurse. Educational Status:? MOB reports to graduating high school, FOB reports to graduating high school and attending some trade school. No concerns with reading, writing or comprehension. 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 FOB reports that he will be taking off one week to stay at home with MOB and baby.? Infant Supplies: MOB report having all supplies needed including: diapers, car seat, wipes, safe sleep space, and clothes.? MOB did inquire about being able to get a pack in play from [facility], SW gave MOB information on contact to determine eligibility.? Childcare/Caregiver(s):? MOB will be primary caregiver, FOB and MIL will also be supports. Transportation:? MOB and FOB both drive, no barriers at this time. ? Programs/Agencies Involved: ???MOB reports to having SNAP, did state that she is planning on calling [facility] to provide assistance. Children Services/Legal Issues:??? No previous children service involvement. Due to MOB substance use during and baby testing positive for THC, ?a Children Service referral was placed.?? Behavioral Health Issues: ??Mental Health History:? MOB has diagnosis of anxiety, depression, adhd, a borderline personality disorder. MOB scored a 19 on the PHQ-9.? She is currently prescribed and is taking buspar, lamical and Zoloft.?? ?Has been seeing a counselor weekly since she was 15. Patient admits to depression with suicidal ideations in the past with her first child.? Patient states that she has spoken with her counselor about a safety plan which involves contacting her MIL for support should she begin to have feelings of being overwhelmed or anxious. Patient was provided information for [facility] which provides counseling online as intensive outpatient therapy should MOB feel that she needs more support than her weekly counseling session. MOB denies any suicidal ideations or plan at this time.? MOB reports to healthy coping strategies, a good support system, and overall feeling better before and after delivery with this baby. ?Substance Use History:? MOB admits to marijuana use during .? Denies alcohol use.? ?Drug Screens baby tested positive for THC. Family/Social Stressors:? MOB reports to having a healthy home life, however states being a stay at home mom with four children can be stressful Support Systems: .? MOB states that her MIL is a huge help and will frequently help with kids when needed. MOB also states that FOB is a large support Depression/Shaken Baby/Safe Sleeping: ??PUNEET educated MOB on signs and symptoms of baby blues and mood and anxiety disorders to be mindful of during this period.? SW provided literature for MOB to review regarding these topics.? MOB was receptive to information provided.? MOB reports to having a weekly counseling appointment that she will continue to attend.?? SW educated MOB on shaken baby prevention and ABCs of safe sleep.? MOB expressed understanding.? ?ASSESSMENT:? MOB and baby admitted following labor and delivery.? Upon entering room, MOB was baby, FOB was at bedside.? MOB and FOB were both attentive and engaged in conversation, would frequently encourage each other while the other was speaking.??? MOB insightful regarding her mental health and triggers, making plans to ensure safety should her mood decline. Safe Plan of Care for infant related to substance use:? MOB encouraged to stop using marijuana if she has chosen to breast feed.? MOB stated that she did not plan to continue use.? MOB and FOB in agreement with safe plan of care including ensuring one parent was always free of substance so baby had a sober ocular care technologist and to smoke outside of the home so children and baby were not exposed.?? PLAN:? ??MOB and baby to be discharged when medically ready.? MOB/FOB were provided with literature regarding help me grow, safe sleep, shaken baby prevention, and education regarding mood and anxiety disorders to be aware of. ?No other services requested or indicated. Lisa King, FIRE PATROLLER, AREA INTELLIGENCE TECHNICIAN
[2024-06-28] MEDS: Acetaminophen 500 MG Tablet 1000 MG PO ×3 (02:12→14:49)
[2024-06-28 03:44] VITALS: BP 113/74; PULSE 78; RESP 16; TEMP 36.2; O2SAT 99
--- NOTE | 2024-06-28 08:31 | PCM.PN.OB ---
Subjective Subjective Denies complaints Objective Data Objective Data Vital Signs: Vital Signs Temp Pulse Resp BP Pulse Ox O2 Del Method 97.1 F L 78 16 113/74 99 Room Air 06/28/24 03:44 06/28/24 03:44 06/28/24 03:44 06/28/24 03:44 06/28/24 03:44 06/28/24 03:44 Oxygen Delivery Method Room Air Weight: 177 lb 6.4 oz Body Mass Index (BMI) 29.5 Intake & Output: Intake and Output for Last 24 Hours 06/26/24 06/27/24 06/28/24 23:59 23:59 23:59 Intake Total 250 / 250 Output Total 600 / 600 Balance -350 / -350 Lab / Micro Data 06/27/24 02:10 Physical Exam Const alert, oriented x3 and no apparent distress HEENT normocephalic GI soft to palpation, non-tender and non-distended GI Narrative: fundus firm, mid & below umbilicus Extremity normal to inspection and no calf tenderness Assessment & Plan (1) (spontaneous vaginal delivery): COMMENT: PPD#1 (2) Factor V Leiden: PLAN: Plan Plan for d/c to home later today Needs lovenox for 6 weeks PP
--- NOTE | 2024-06-28 08:32 | PCM.DC.SUM ---
Providers Date of Admission: 06/27/24 Primary Care Physician: Rosana Evans, [employer] ENGINEER-C Reason For Visit: VAGINAL DELIVERY Diagnosis Discharge Diagnosis (1) (spontaneous vaginal delivery): Status: Acute Code(s): O80 - Encounter for full-term uncomplicated delivery (2) Factor V Leiden: Status: Acute Code(s): D68.51 - Activated protein C resistance Plan Plan for d/c to home later today Needs lovenox for 6 weeks PP Medications at Discharge Home Medications buspirone 15 mg tablet 15 mg PO BID 02/12/22 lurasidone 80 mg tablet (Latuda) 80 mg PO DAILY 02/12/22 ondansetron 4 mg disintegrating tablet 4 mg PO Q8H PRN PRN Nausea #10 tabs 03/03/24 cyclobenzaprine 10 mg tablet 10 mg PO TID PRN PRN muscle spasm 06/27/24 folic acid 1 mg tablet 4 mg PO DAILY 06/27/24 lamotrigine 300 mg tablet,extended release 24 hr 300 mg PO 06/27/24 lamotrigine 50 mg tablet,extended release 24 hr 50 mg PO DAILY 06/27/24 vits no.130-ferrous fum 27 mg iron-folic acid 800 mcg tablet ( Vitamin) 1 tab PO DAILY 06/27/24 sertraline 100 mg tablet 100 mg PO DAILY 06/27/24 acetaminophen 500 mg tablet 1,000 mg (2 x 500 mg) PO Q6H PRN PRN Pain 1-10 Or Fever #0 tabs 06/28/24 enoxaparin 40 mg/0.4 mL subcutaneous syringe 40 mg (0.4 mL) subcut DAILY@1730 6 weeks #20 mL 06/28/24 naproxen 500 mg tablet 500 mg PO Q8H PRN PRN Pain Score 1-10 #0 tabs 06/28/24 Hospital Course Operations None Summary of Care Provided Minutes Spent on Discharge: 15 Weight / BMI Weight Weight: 177 lb 6.4 oz Body Mass Index (BMI) 29.5 ABG / Lab / Microbiology Data 06/27/24 02:10 D/C Instructions Discharge Diet: No restrictions Discharge Activity: May Shower May resume sexual activity in: 6 weeks Weight Bearing Status: Weight bearing as tolerated Call your doctor if you observe: Fever of 101 or Higher, Coldness, Increased Pain, Change in Color, Inability to urinate, Inability to have a bowel movement, Using more than 1 pad per hour, Shortness of breath, Dizziness, Fainting spells, Chest pain, Increased palpitations (irregular heartbeat), Calf discomfort and Uncontrolled pain DC O2, CPAP, BIPAP Needs Home O2 Discharge instructions: No Please Follow Up With: Keven Bhat MD When: Follow up in 2 and 6 weeks for visits. Meaningful Use Info Meaningful Use Meaningful Use Diagnoses (Choose all that apply): None applicable Ischemic Stroke Statin Dosing Therapy Reference: STATIN DOSE THERAPY REFERENCE: * Patients > 75 years receive moderate or high dose statin therapy. * Patients 75 years or YOUNGER should receive HIGH intensity statin dose unless contraindicated. You will be required to document reason for non-treatment if statin daily dose does not meet guidelines. HIGH DOSE STATIN THERAPY DAILY Atorvastatin > than or = to 40 mg Rosuvastatin > than or = to 20 mg Amlodipine + Atorvastatin > than or = to 2.5/40 mg Ezetimibe + Simvastatin 10/80 mg Simvastatin 80mg Discharge Plan Admission Admit Date/Time: 06/27/24 01:22 Primary Reason for Your Visit: Vaginal delivery Attending Provider: Danyelle Gutierrez Primary Care Provider: Rosana Evans Discharge Orders/Prescriptions Prescriptions: New acetaminophen 500 mg Tablet 1,000 mg PO Q6H PRN PRN (Reason: Pain 1-10 Or Fever) Qty: 0 0RF naproxen 500 mg Tablet 500 mg PO Q8H PRN PRN (Reason: Pain Score 1-10) Qty: 0 0RF enoxaparin 40 mg/0.4 mL Syringe 40 mg subcut DAILY@1730 42 Days Qty: 20 1RF Continued buspirone 15 mg tablet 15 mg PO BID Patient Comments: TAKE 1 TABLET BY MOUTH TWICE DAILY lurasidone [Latuda] 80 mg tablet 80 mg PO DAILY Patient Comments: TAKE 1 TABLET BY MOUTH ONCE DAILY WITH FOOD(AT LEAST 350 CALORIES) ondansetron 4 mg tablet,disintegrating 4 mg PO Q8H PRN PRN (Reason: Nausea) Qty: 10 0RF cyclobenzaprine 10 mg tablet 10 mg PO TID PRN PRN (Reason: muscle spasm) sertraline 100 mg tablet 100 mg PO DAILY folic acid 1 mg tablet 4 mg PO DAILY lamotrigine 50 mg tablet extended release 24hr 50 mg PO DAILY lamotrigine 300 mg tablet extended release 24hr 300 mg PO Vitamin 27 mg iron- 800 mcg tablet 1 tab PO DAILY Discontinued aspirin 81 mg tablet,delayed release (DR/EC) 81 mg PO DAILY Referrals / Follow Up: Rosana Evans, [employer] ENGINEER-C [Primary Care Provider] - Disposition Disposition (needs filled in before D/C Order can be placed): Home, Self Care
[2024-06-28 10:00] VITALS: BP 119/73; PULSE 89; RESP 16; TEMP 36.7; O2SAT 96
[2024-06-28] MEDS: Senna/Docusate Sodium 1 Tablet PO (10:44)
[2024-06-28] MEDS: Prenatal Vits Tablet 1 TABLET PO (10:44)
[2024-06-28] MEDS: Sertraline 100 MG Tablet PO (10:45)
[2024-06-28] MEDS: Folic Acid 1 MG Tablet 4 MG PO (10:47)
[2024-06-28 13:52] VITALS: BP 131/75; PULSE 94; RESP 16; TEMP 36.6; O2SAT 97
== END 2024-06-28 15:10 | disposition home or self-care (01) | DRG 560 ==
LOC: WPOUT 01:25 → WP 01:25
PROVIDERS: Admitting Provider Advanced Practice Midwife; PCP Nurse Practitioner Family; Referring Provider Advanced Practice Midwife; Visit Provider Advanced Practice Midwife
DX: O42.92 Full-term premature rupture of membranes, unspecified as to length of time between rupture and onset of labor (principal); Z37.0 Single live birth; O99.12 Other diseases of the blood and blood-forming organs and certain disorders involving the immune mechanism complicating childbirth; G40.909 Epilepsy, unspecified, not intractable, without status epilepticus; F32.A Depression, unspecified; O99.354 Diseases of the nervous system complicating childbirth; F17.210 Nicotine dependence, cigarettes, uncomplicated; F41.9 Anxiety disorder, unspecified; O62.3 Precipitate labor; O99.334 Smoking (tobacco) complicating childbirth; D68.51 Activated protein C resistance; O99.344 Other mental disorders complicating childbirth; O77.0 Labor and delivery complicated by meconium in amniotic fluid; Z3A.38 38 weeks gestation of pregnancy; Z79.899 Other long term (current) drug therapy; Z87.59 Personal history of other complications of pregnancy, childbirth and the puerperium
CPT/HCPCS: 59025; 59050; 85025; 86780; 86850; 86900; 86901; 99221; A4216; G0378

== ENCOUNTER 2024-07-02 15:47 | Emergency (ER) | payer MEDICAID, SELFPAY ==
[2024-07-02 15:50] VITALS: BP 136/79; PULSE 94; RESP 18; TEMP 35.9; O2SAT 99; BMI 26.9
--- NOTE | 2024-07-02 16:21 | ED.VIS.FEGU ---
HPI <JAQUAN Venegas - Last Filed: 07/02/24 20:50> HPI - Female History of Present Illness Chief Complaint: Vag Bleeding Narrative Narrative: Patient is a 28-year-old female with history of factor V Leiden, depression who presents to the emergency department for pelvic pain, as well as right upper quadrant pain. Patient recently gave on June 27, 2024, x 5 days ago. Patient is a 8, para 4, 4. Patient states that the delivery was unremarkable, she is currently on Lovenox. Patient presents with severe pain to her lower abdomen as well as right upper quadrant. [facility] <JAQUAN Venegas - Last Filed: 07/02/24 20:50> [facility] Medical History (Updated 07/02/24 @ 20:50 by JAQUAN Venegas) History of pre-term labor Infertility Trauma Blood clotting disorder depression Psychiatric disorder Seizures Anxiety Depression Factor V Leiden Seizure disorder Gallstones Home Medications ?Medication ?Instructions ?Recorded ?Last Taken ?Type buspirone 15 mg tablet 15 mg PO BID 02/12/22 Unknown History lurasidone 80 mg tablet (Latuda) 80 mg PO DAILY 02/12/22 Unknown History ondansetron 4 mg disintegrating 4 mg PO Q8H PRN PRN Nausea #10 tabs 03/03/24 Unknown Rx tablet cyclobenzaprine 10 mg tablet 10 mg PO TID PRN PRN muscle spasm 06/27/24 Unknown History folic acid 1 mg tablet 4 mg PO DAILY 06/27/24 Unknown History lamotrigine 300 mg tablet,extended 300 mg PO 06/27/24 Unknown History release 24 hr lamotrigine 50 mg tablet,extended 50 mg PO DAILY 06/27/24 Unknown History release 24 hr vits no.130-ferrous fum 1 tab PO DAILY 06/27/24 Unknown History 27 mg iron-folic acid 800 mcg tablet ( Vitamin) sertraline 100 mg tablet 100 mg PO DAILY 06/27/24 Unknown History acetaminophen 500 mg tablet 1,000 mg (2 x 500 mg) PO Q6H PRN 06/28/24 Unknown Rx PRN Pain 1-10 Or Fever #0 tabs enoxaparin 40 mg/0.4 mL 40 mg (0.4 mL) subcut DAILY@1730 6 06/28/24 Unknown Rx subcutaneous syringe weeks #20 mL naproxen 500 mg tablet 500 mg PO Q8H PRN PRN Pain Score 06/28/24 Unknown Rx 1-10 #0 tabs Allergy/AdvReac Type Severity Reaction Status Date / Time No Known Allergies Allergy Verified 07/02/24 15:49 Family History no significant family his Social History Smoking Status: Former smoker substance use type: marijuana ROS <JAQUAN Venegas - Last Filed: 07/02/24 20:50> ROS ED ROS Narrative Constitutional: Negative for fever, chills, weight loss, weakness Eyes: Negative for vision loss, vision change, double vision ENT: Negative for any sore throat, ear pain, congestion Cardiovascular: Negative for any chest pain, tightness, palpitations Respiratory: Negative for any cough, sputum production, hemoptysis, dyspnea, dyspnea on exertion, orthopnea Gastrointestinal: Negative for any nausea, vomiting, diarrhea, constipation, blood in stool, blood in vomit. Positive for abdominal pain, lower abdominal pain, pelvic pain : Negative for any urinary frequency, dysuria, retention, blood in urine Muscle skeletal: Negative for any neck pain, back pain Neurological: Negative for any headache, syncope, dizziness Skin: Negative for any rashes, itching, abrasions, lacerations Psychiatric: Negative for any depression, anxiety, stress, suicidal ideation, homicidal ideation Hematologic: Negative for any excessive bruising, easy bleeding EXAM <JAQUAN Venegas - Last Filed: 07/02/24 20:50> Physical Exam Narrative Exam Narrative: Vital signs reviewed. Patient is slightly pale appearance however patient's vital signs are stable HEET: Head normocephalic atraumatic, TMs clear bilaterally. Posterior pharynx is clear, moist mucous membranes. Nares clear bilaterally. Neck: Supple with no lymphadenopathy or tenderness. No signs of meningismus. Cardiac: Regular rate and rhythm no murmurs gallops or rubs, equal peripheral pulses bilaterally. Respiratory: Lungs clear to auscultation bilaterally. No chest tenderness. Abdomen: Soft, nondistended. No abdominal bruit or pulsatile masses. No hepatosplenomegaly. Tenderness to the lower abdomen, this may be more of a pelvic pain. Patient also has pain to the right upper quadrant. Extremities: No peripheral edema, no signs of gross trauma or deformity. Active full range of motion of all extremities. Neuro: Cranial nerves II through XII intact, no focal neurological deficits. Skin: Clean dry and intact with no rash, purpura, petechiae, vesicles or pustules. Backs/flank: No CVA tenderness, no midline spinal tenderness, no deformity. Psych: Normal mood and affect. No SI, HI or acute psychosis. Vaginal: Vaginal exam was completed with myself as well as ER attending. There was some blood, cervical os was closed. No significant foreign body seen. No large amount of hemorrhage. Patient tolerated well. Const Vital Signs: 07/02/24 15:50 07/02/24 17:49 07/02/24 19:00 Temperature 96.7 F L Temperature Source Temporal Pulse Rate 94 88 88 Respiratory Rate 18 16 Blood Pressure 136/79 H 128/71 H 117/67 Blood Pressure Mean 98 90 83 Pulse Ox 99 99 99 Oxygen Delivery Method Room Air Room Air Room Air 07/02/24 20:51 Temperature 98.1 F Temperature Source Pulse Rate 64 Respiratory Rate 15 Blood Pressure 110/72 Blood Pressure Mean 84 Pulse Ox 99 Oxygen Delivery Method Positive well nourished <Dr. Yeison Llamas DO - Last Filed: 07/03/24 01:39> Physical Exam Const Vital Signs: 07/02/24 15:50 07/02/24 17:49 07/02/24 19:00 Temperature 96.7 F L Temperature Source Temporal Pulse Rate 94 88 88 Respiratory Rate 18 16 Blood Pressure 136/79 H 128/71 H 117/67 Blood Pressure Mean 98 90 83 Pulse Ox 99 99 99 Oxygen Delivery Method Room Air Room Air Room Air 07/02/24 20:51 Temperature 98.1 F Temperature Source Pulse Rate 64 Respiratory Rate 15 Blood Pressure 110/72 Blood Pressure Mean 84 Pulse Ox 99 Oxygen Delivery Method MDM <JAQUAN Venegas - Last Filed: 07/02/24 20:50> [facility] Lab Data Labs: Laboratory Results - last 24 hr 07/02/24 07/02/24 16:37 16:55 WBC 6.6 RBC 4.39 Hgb 11.7 L Hct 37.0 MCV 84.3 MCH 26.7 L MCHC 31.6 L RDW Std Deviation 46.4 H RDW Coeff of Cheryl 15.4 H Plt Count 394 MPV 9.9 Immature Gran % (Auto) 0.300 Neut % (Auto) 54.4 Lymph % (Auto) 32.4 [place] % (Auto) 9.7 Eos % (Auto) 2.4 Baso % (Auto) 0.8 Absolute Neuts (auto) 3.6 Absolute Lymphs (auto) 2.13 Nucleated RBC % 0 Sodium 140 Potassium 3.6 Chloride 111 H Carbon Dioxide 23.0 Anion Gap 6 BUN 10 Creatinine 0.65 Estim Creat Clear Calc 130.51 Est GFR (MDRD) Af Amer 140 Est GFR (MDRD) Non-Af 116 BUN/Creatinine Ratio 15.4 Glucose 75 Calcium 9.1 Total Bilirubin 0.30 AST 30 ALT 41 Alkaline Phosphatase 152 H Lactate Dehydrogenase 223 Total Protein 7.4 Albumin 2.9 L Globulin 4.5 H Albumin/Globulin Ratio 0.6 L Lipase 46 Urine Color Yellow Urine Clarity Clear Urine pH 7.0 Ur Specific Hooper 1.010 Urine Protein 30 H Urine Glucose (UA) Normal Urine Ketones 5 H Urine Occult Blood 150 H Urine Nitrite Negative Urine Bilirubin Negative Urine Urobilinogen Normal Ur Leukocyte Esterase 25 H Urine RBC 5-10 SEEN Urine WBC 5-10 SEEN Ur Squamous Epith Cells 0-5 SEEN Urine Bacteria RARE Urine Mucus 2+ Radiography Diagnostic Testing: Clinical Impression(s) from Imaging Studies Abdomen/Pelvis CT 07/02/24 16:22 IMPRESSION: Enlarged uterus with fluid in the endometrial cavity. Patient is apparently . No other acute abnormalities. Electronically Signed: Mikey Pandey MD at 19:15 EST , Transvaginal US 07/02/24 16:22 IMPRESSION: Thickened heterogeneous endometrium. There is no obvious blood flow but this may represent retained products of conception. Electronically Signed: Mikey Pandey MD at 19:20 EST , ADDENDUM: 07/02/24 193 IMPRESSION: Thickened heterogeneous endometrium. There is no obvious blood flow but this may represent retained products of conception. N.B. : The above Results were Read Back by Mikey Pandey MD to Yeison Llamas MD, and understanding confirmed on 07/02/2024 19:32:33 (ET). Electronically Signed: Mikey Pandey MD at 19:20 EST , Treatment and Re-Evaluation Narrative: Differential diagnosis includes however is not limited to: Retained products, acute cholecystitis, endometriosis, ovarian cyst Patient appears generally well, vital signs are stable, patient is nontoxic-appearing. Presenting to the emergency department for suprapubic pain, right upper quadrant pain. Patient will receive abdominal laboratory values CBC CMP lipase, urinalysis, patient be given IV fluids, Zofran and morphine. Patient refused the morphine, she was given oral Tylenol.Patient's laboratory values showed a slight anemia with a hemoglobin 11.7, 5 days ago was 12.5, this is when the patient gave . Patient's chemistries were unremarkable, alkaline phosphatase 152, lipase was negative at 46. Patient CT scan of the abdomen pelvis showed enlarged uterus with fluid in the endometrial cavity. Patient is apparently . No other acute abnormalities. Ultrasound of the transvaginal area showed a thickened heterogeneous endometrium. There is no obvious blood flow but this may represent retained products of conception. Secondary to this finding, we did reach out to [facility]. They recommended IV Toradol, reevaluation to see the patient can be discharged home. Patient will be reevaluated On reevaluation, the patient was feeling much improved. Patient does have a follow-up appointment on Thursday with the [facility]. She was given strict return precaution. At this time, patient believes she can be discharged home. All questions answered, stable for discharge. <Dr. Yeison Llamas, DO - Last Filed: 07/03/24 01:39> [facility] Narrative Medical decision making narrative: Supervisory Physician Note Patient was seen and examined with the Advanced Practice Provider. Nursing notes and vital signs have been reviewed. Pertinent old records have been reviewed. I agree with the essential elements of the JOHN's history, physical exam, assessment, and plan. The differential diagnosis and management options were discussed with the JOHN. I participated in determining and agree with the management, procedures, final impression and disposition as documented. See changes noted by me. Please see addendum or separate note for any additional details. 28-year-old female who is G8, P4, A4 with recent vaginal delivery on 06/27/2024 who presents for evaluation of lower abdominal pain and vaginal bleeding. Patient states her delivery was unremarkable except for she had increased bleeding and received a shot. She does not know what shot she received. She states she is currently on Lovenox due to factor V Leiden. Patient follows with [facility]. Patient states since delivery she has been having increasing pelvic abdominal pain. Occasionally radiates to the right upper quadrant. She denies any fever, chills, shortness of breath, chest pain, nausea, vomiting, dysuria. Patient saw PCP recommended her go to the emergency department. Gen: A&O x3, nontoxic Head: Normocephalic, atraumatic Eyes: No sclera icterus, conjunctiva clear ENT: Moist mucous membranes Neck: Trachea midline, No JVD CV: RRR, no murmurs, no peripheral edema Resp: Lungs CTA BL, no w/r/c GI: Abd soft, non-distended, tender to palpation in the bilateral lower quadrants, voluntary guarding, no rebound or rigidity no CVA tenderness: Pelvic: Normal external genitalia. No lesions, masses, or rashes appreciated. Minimal vaginal bleeding. No discharge. No foul odor. Cervix is closed. Cervix is non-friable. No cervical motion tenderness appreciated. No sign of PID on examination. Musc: Full ROM, no deformity Skin: Warm, dry Neuro: Alert, oriented, grossly intact, sensation intact Psych: Cooperative, appropriate mood and affect IV fluids, Zofran, pain medicine ordered. CBC without leukocytosis. Patient has mild anemia with hemoglobin of 11.7. CMP without significant electrolyte abnormality, BRADY, transaminitis. Patient does have elevated alk phos at 152. Lipase unremarkable. UA positive for blood, patient has vaginal bleeding. Otherwise negative for UTI. CT abdomen pelvis shows enlarged uterus with fluid in the endometrial cavity. Transvaginal ultrasound shows thickened heterogeneous endometrium. There is no obvious blood flow but this may represent retained products of conception. Given this finding, we did reach out to [facility]. Dr. Gomes was on-call. Recommendation is for IV Toradol and reevaluation of pain. If pain is controlled patient to discharge home. Suspects blood clots and not retained products of conception. Patient was updated of the plan and confirmed understanding. On reevaluation, pain improved. Patient has an appointment with [facility] on Thursday. Strict return precautions. Patient discharged home. Impression: 1. Pelvic pain 2. Vaginal bleeding 3. History of factor V Leiden on Lovenox. Lab Data Labs: Laboratory Results - last 24 hr 07/02/24 07/02/24 16:37 16:55 WBC 6.6 RBC 4.39 Hgb 11.7 L Hct 37.0 MCV 84.3 MCH 26.7 L MCHC 31.6 L RDW Std Deviation 46.4 H RDW Coeff of Cheryl 15.4 H Plt Count 394 MPV 9.9 Immature Gran % (Auto) 0.300 Neut % (Auto) 54.4 Lymph % (Auto) 32.4 [place] % (Auto) 9.7 Eos % (Auto) 2.4 Baso % (Auto) 0.8 Absolute Neuts (auto) 3.6 Absolute Lymphs (auto) 2.13 Nucleated RBC % 0 Sodium 140 Potassium 3.6 Chloride 111 H Carbon Dioxide 23.0 Anion Gap 6 BUN 10 Creatinine 0.65 Estim Creat Clear Calc 130.51 Est GFR (MDRD) Af Amer 140 Est GFR (MDRD) Non-Af 116 BUN/Creatinine Ratio 15.4 Glucose 75 Calcium 9.1 Total Bilirubin 0.30 AST 30 ALT 41 Alkaline Phosphatase 152 H Lactate Dehydrogenase 223 Total Protein 7.4 Albumin 2.9 L Globulin 4.5 H Albumin/Globulin Ratio 0.6 L Lipase 46 Urine Color Yellow Urine Clarity Clear Urine pH 7.0 Ur Specific [place] 1.010 Urine Protein 30 H Urine Glucose (UA) Normal Urine Ketones 5 H Urine Occult Blood 150 H Urine Nitrite Negative Urine Bilirubin Negative Urine Urobilinogen Normal Ur Leukocyte Esterase 25 H Urine RBC 5-10 SEEN Urine WBC 5-10 SEEN Ur Squamous Epith Cells 0-5 SEEN Urine Bacteria RARE Urine Mucus 2+ Radiography Diagnostic Testing: Clinical Impression(s) from Imaging Studies Abdomen/Pelvis CT 07/02/24 16:22 IMPRESSION: Enlarged uterus with fluid in the endometrial cavity. Patient is apparently . No other acute abnormalities. Electronically Signed: Mikey Pandey MD at 19:15 EST , Transvaginal US 07/02/24 16:22 IMPRESSION: Thickened heterogeneous endometrium. There is no obvious blood flow but this may represent retained products of conception. Electronically Signed: Mikey Pandey MD at 19:20 EST , ADDENDUM: 07/02/24 1939 IMPRESSION: Thickened heterogeneous endometrium. There is no obvious blood flow but this may represent retained products of conception. N.B. : The above Results were Read Back by Mikey Pandey MD to Yeison Llamas MD, and understanding confirmed on 07/02/2024 19:32:33 (ET). Electronically Signed: Mikey Pandey MD at 19:20 EST , Discharge Plan Triage Chief Complaint: Vag Bleeding ED Midlevel Provider: Deniz Ya ED Provider: Yeison Llamas Dx/Rx/DC Orders Clinical Impression: Vaginal bleeding, Pelvic pain, amenorrhea Instructions: Pain After Childbirth, Feeling Healthy, ED Pelvic Pain, Unknown Cause Prescriptions: No Action buspirone 15 mg tablet 15 mg PO BID Patient Comments: TAKE 1 TABLET BY MOUTH TWICE DAILY lurasidone [Latuda] 80 mg tablet 80 mg PO DAILY Patient Comments: TAKE 1 TABLET BY MOUTH ONCE DAILY WITH FOOD(AT LEAST 350 CALORIES) ondansetron 4 mg tablet,disintegrating 4 mg PO Q8H PRN PRN (Reason: Nausea) Qty: 10 0RF cyclobenzaprine 10 mg tablet 10 mg PO TID PRN PRN (Reason: muscle spasm) sertraline 100 mg tablet 100 mg PO DAILY folic acid 1 mg tablet 4 mg PO DAILY lamotrigine 50 mg tablet extended release 24hr 50 mg PO DAILY lamotrigine 300 mg tablet extended release 24hr 300 mg PO Vitamin 27 mg iron- 800 mcg tablet 1 tab PO DAILY acetaminophen 500 mg Tablet 1,000 mg PO Q6H PRN PRN (Reason: Pain 1-10 Or Fever) Qty: 0 0RF naproxen 500 mg Tablet 500 mg PO Q8H PRN PRN (Reason: Pain Score 1-10) Qty: 0 0RF enoxaparin 40 mg/0.4 mL Syringe 40 mg subcut DAILY@1730 42 Days Qty: 20 1RF Primary Care Provider: Rosana Evans Referrals: Sirisha Gomes MD [Med Staff - Active Staff] - Rosana Evans [facility] [Primary Care Provider] - Activity Restrictions/Additional Instructions: Please follow-up outpatient. Print Language: Setswana Disposition Disposition: Home, Self Care Discharge Date/Time: 07/02/24 20:53
--- NOTE | 2024-07-02 16:22 | CT_ITS ---
EXAM: CT ABDOMEN AND PELVIS WITH INTRAVENOUS CONTRAST CLINICAL INDICATION: abdominal pain TECHNIQUE: Helically acquired images were obtained of the abdomen and pelvis with intravenous contrast. This CT exam was performed using one or more of the following dose reduction techniques: automated exposure control, adjustment of the mA and/or kV according to patient size, and/or use of iterative reconstruction technique. CONTRAST: IV 100mL Isovue-370 COMPARISON: No relevant prior studies available. FINDINGS: LOWER THORAX: Unremarkable. Lung bases are clear. No cardiomegaly. No significant pericardial effusion. ABDOMEN: LIVER: Unremarkable. Homogeneous. No focal mass. GALLBLADDER AND BILE DUCTS: There are several gallstones present. There is no inflammation. No gallbladder distention or wall edema. No intra- or extrahepatic biliary ductal dilation. PANCREAS: Unremarkable. No focal cystic or solid mass. SPLEEN: Unremarkable. Normal size without focal cystic or solid mass. ADRENALS: Unremarkable. No nodules. KIDNEYS AND URETERS: Unremarkable. Normal renal size and position. No hydronephrosis. STOMACH AND BOWEL: Unremarkable. No stomach or bowel distention. No focal inflammatory change. PELVIS: APPENDIX: No evidence of acute appendicitis. BLADDER: Unremarkable. REPRODUCTIVE: The uterus is enlarged measuring 12.8 x 8.3 x 10.6 cm with fluid in the endometrial cavity. ABDOMEN and PELVIS: INTRAPERITONEAL SPACE: Unremarkable. No ascites or other fluid collection. No free air. BONES/JOINTS: Unremarkable. No suspicious lytic or blastic abnormality. SOFT TISSUES: Unremarkable. No discrete abdominal or pelvic wall hernia. VASCULATURE: Unremarkable. Abdominal aorta is non-dilated. LYMPH NODES: Unremarkable. No enlarged lymph nodes. CT/Abdomen/Pelvis W IV Cont ONLY IMPRESSION: Enlarged uterus with fluid in the endometrial cavity. Patient is apparently . No other acute abnormalities. Electronically Signed: Mikey Pandey MD at 19:15 EST ,
--- NOTE | 2024-07-02 16:22 | US_ITS ---
We are attempting to reach an attending provider to discuss findings. An addendum with communication details will be sent when the communication is complete. EXAM: US PELVIS TRANSVAGINAL CLINICAL INDICATION: pain TECHNIQUE: Transvaginal pelvic ultrasound was performed with grayscale and color Doppler imaging. Transvaginal imaging was used for better evaluation of the endometrium and adnexa. COMPARISON: No relevant prior studies available. FINDINGS: UTERUS/CERVIX: Uterus measures 11.5 x 10.9 x 7.8 cm. The endometrium is heterogeneous and thickened measuring 2.7 cm. Anteverted. There is no uterine mass. RIGHT OVARY: The right ovary measures 2.9 x 2.1 x 1.5 cm. Blood flow is present in the right ovary. LEFT OVARY: Left ovary measures 3.1, 0.1 0.2 cm. Blood flow is present in the left ovary. FREE FLUID: None. BLADDER: Empty bladder which cannot be evaluated with this probe. US/Transvaginal Non- IMPRESSION: Thickened heterogeneous endometrium. There is no obvious blood flow but this may represent retained products of conception. Electronically Signed: Mikey Pandey MD at 19:20 EST ,
[2024-07-02] MEDS: Ondansetron 4 MG/2 ML Vial IV (16:36)
[2024-07-02] MEDS: 0.9% Normal Saline (1000mL) 1,000 ML 999 ML IV (16:36)
[2024-07-02] MEDS: Acetaminophen 500 MG Tablet 1000 MG PO (16:39)
[2024-07-02 16:47] LABS: Absolute Lymphocyte Count 2.13 X10^3/uL (0.83-4.51); Absolute Neutrophil Count 3.6 X10^3/uL (2.0-7.7); Basophil# 0.05 X10^3/uL; Basophil% 0.8 % (0-1); Eosinophil# 0.16 X10^3/uL; Eosinophils% 2.4 % (0-5); Hemoglobin 11.7 g/dL (12.0-15.0); Lymphocyte # 2.13 X10^3/ul (0.83-4.51); Lymphocyte % 32.4 % (19-41); Mean Corp Hgb Conc 31.6 g/dL (32-36); Mean Corpuscular Hgb 26.7 pg (27.0-32.0); Mean Corpuscular Volume 84.3 fL (81-99); Mean Platelet Vol. 9.9 fl (6.2-12.0); Monocyte# 0.64 X10^3/uL; Monocyte% 9.7 % (0-10); NRBC Flagged by Analyzer 0 % (0-5); Neutrophil # 3.58 X10^3/uL (2.7-7.7); Neutrophil % 54.4 % (47-70); Platelet Count 394 K/mm3 (150-450); RBC Distribution Width CV 15.4 % (11.6-14.6); RBC Distribution Width SD 46.4 fl (35.1-43.9); Red Blood Count 4.39 M/mm3 (4.2-5.4); White Blood Count 6.6 K/mm3 (4.4-11.0)
[2024-07-02 17:05] LABS: Color, Urine Yellow (Yellow); Glucose, Dipstick Normal (Normal); Ketone-Dipstick 5 mg/dl (Negative); Leukocyte Esterase-Dipstick 25 /ul (Negative); Nitrite-Dipstick Negative (Negative); Occult Blood-Urine 150 /ul (Negative); Protein-Dipstick 30 mg/dl (Negative); Urine Bilirubin Dipstick Negative (Negative); Urine Clarity Clear (Clear); Urine Urobilinogen Normal (Normal)
--- NOTE | 2024-07-02 17:06 | ED.RN ---
ASSISTED DR MARES WITH PELVIC. PT TOLERATED WELL
[2024-07-02 17:07] LABS: ALB/GLOB Ratio 0.6 RATIO (0.9-2.4); AST(SGOT) 30 U/L (15-37); Alanine Aminotransfer ALT/SGPT 41 U/L (13-56); Albumin, Serum 2.9 g/dL (3.2-5.0); Alkaline Phosphatase 152 U/L (45-117); Anion Gap 6 (5-15); BUN 10 mg/dL (7-18); BUN/Creat Ratio 15.4 RATIO (10-20); Calcium,Total 9.1 mg/dL (8.5-10.1); Chloride 111 mmol/L (98-107); Creatinine, Serum 0.65 mg/dL (0.55-1.02); EST Glomerular Filtration Rate 116 mL/min (>60); Est Glom Filt Rate - Afr Amer 140 mL/min (>60); Estimated Creatinine Clearance 130.51 ml/min; Globulin 4.5 g/dL (2.2-4.2); Glucose 75 mg/dL (74-106); Lipase 46 U/L (13-75); Potassium 3.6 mmol/L (3.5-5.1); Protein, Total 7.4 g/dL (6.4-8.2); Sodium Level 140 mmol/L (136-145)
[2024-07-02 17:12] LABS: LDH 223 U/L (84-246)
[2024-07-02 17:46] LABS: Squamous Epithelial Cells - UA 0-5 SEEN /hpf (5-10)
[2024-07-02 17:47] LABS: Red Blood Cells-Urine 5-10 SEEN /hpf (0-5); White Blood Cells 5-10 SEEN /hpf (0-5)
[2024-07-02 17:49] VITALS: BP 128/71; PULSE 88; RESP 16; O2SAT 99
[2024-07-02 17:55] LABS: Bacteria RARE /hpf (None Seen); Mucous, Urine 2+ /hpf (<or=2+)
[2024-07-02 19:00] VITALS: BP 117/67; PULSE 88; O2SAT 99
[2024-07-02] MEDS: Ketorolac 15 MG/ML Vial IV (19:53)
[2024-07-02 20:51] VITALS: BP 110/72; PULSE 64; RESP 15; TEMP 36.7; O2SAT 99
== END 2024-07-02 20:53 | disposition home or self-care (01) ==
PROVIDERS: Nurse Practitioner; Emergency Provider Surgery; PCP Nurse Practitioner Family; Visit Provider Surgery
DX: O72.2 Delayed and secondary postpartum hemorrhage (principal); O99.893 Other specified diseases and conditions complicating puerperium; R10.2 Pelvic and perineal pain; N91.2 Amenorrhea, unspecified; Z87.891 Personal history of nicotine dependence

== ENCOUNTER 2025-01-29 18:06 | Emergency (ER) | payer MEDICAID, SELFPAY ==
[2025-01-29 18:07] VITALS: BP 131/75; PULSE 92; RESP 14; TEMP 36.2; O2SAT 98; BMI 23.9
--- OUTSIDE RECORDS SUMMARY | 2025-01-29 19:14 | XMS RPT_ITS | CCD ---
Author Organization [facility] Care Team Providers Care Freight Agent Name Role Phone DANIS DO, DR KALIA Morel Primary Care Physician [phone] Ashlee Bonilla Primary Care Provider Carlos Bird DO Primary Care Provider DANIS, KALIA Primary Care Unavailable MELVA ALVAREZ Attending Unavailable HONGDARA CHA Referring Unavailable DANIS, KALIA Primary Care Unavailable MELVA ALVAREZ Attending Unavailable DARA PITTS Referring Unavailable KAYLENE BUENROSTRO Referring Unavailable DANIS, KALIA Primary Care Unavailable MELVA ALVAREZ Attending Unavailable KREKAYLENE RAMOS Referring Unavailable DANIS, KALIA Primary Care Unavailable MELVA ALVAREZ Attending Unavailable DANIS, KALIA Primary Care Unavailable MELVA ALVAREZ Attending Unavailable DARA PITTS Referring Unavailable DANIS, KALIA Primary Care Unavailable MELVA ALVAREZ Attending Unavailable HONGDARA CHA Referring Unavailable PEARL JOSEPH MD Attending Unavailable DANIS DO, DR KALIA Morel Primary Care Unavailmari ALVAREZ MD, DR MELVA Winter Attending Unavai lable DANIS DO, DR KALIA Morel Primary Care Unavailabl e PORTER NASH-KAYLENE JOHNSON Attending Unavail able DANIS DO, DR KALIA Morel Primary Care Unavailabl e FABIO MCFARLAND MD Attending Unavailable DANIS DO, DR KALIA Morel Primary Care Unavailabl e NIECY NASH-CHRIS JOHNSON Attending Unavai lable DANIS DO, DR KALIA Morel Primary Care Unavailabl e DANIS DO, DR KALIA Morel Primary Care Unavailmari ALVAREZ MD, DR MELVA Winter Attending Unavai lable HONG , DARA Riojas Admitting Unavailable HONG DODARA Attending Unavailable DANIS DO, DR KALIA A Primary Care Unavailabl e KALIA MOSCOSO DO Consulting Unavailable SIRISHA REGAN DO Attending Unavailable SIRISHA REGAN DO Primary Care Unavailable SIRISHA REGAN DO Admitting Unavailable PROVIDER, UNKNOWN Consulting Unavailable Carlos Bird DO Primary Care Provider NEYMAR PADILLA Attending Unavailabl NEYMAR Hobson Admitting Unavailabl e BIRD, CARLOS L Primary Care Unavailable AZZAM, RAED H Admitting Unavailable BIRD, CARLOS L Primary Care Unavailable AZZAM, RAED H Attending Unavailable Nathan OBGYN NURSE.Rosana JOHNSON Unavailable Adriana OBGYN NURSERonel REYES Unavailable PELON CARLOS Andreia Primary Care Unavailable BELGICA THOMAS Referring Unavailable Gildardo Dunlap Referring Unavailable Gildardo Dunlap Attending Unavailable Rosana Evans Primary Care Unavailabl Yeison Arteaga Attending Unavailabl e Rosana Evans Primary Care Unavailabl e Matt, Danyelle Admitting Unavailable Rosana Evans Primary Care Unavailabl e Matt, Danyelle Referring Unavailable Danyelle Gutierrez Attending Unavailable BIRD, CARLOS L Primary Care Unavailable SIRISAH GOMES Attending Unavailable FROY, CATRINA Referring Unavailable BIRD, CARLOS L Primary Care Unavailable VALDO, RAED H Referring Unavailable BIRD, CARLOS L Primary Care Unavailable PELON, CARLOS L Primary Care Unavailable ROSANA EVANS Attending Unavailabl SIMONA Ying Attending Unavailable BIRD, CARLOS L Primary Care Unavailable SIMONA YANEZ Attending Unavailable WILLIAM, BELGICA Referring Unavailable BIRD, CARLOS L Primary Care Unavailable WILLIAM BELGICA Referring Unavailable BIRD, CARLOS L Primary Care Unavailable FROY, CATRINA Referring Unavailable BIRD, CARLOS L Primary Care Unavailable FROY, CATRINA Referring Unavailable BIRD, CARLOS L Primary Care Unavailable BIRD, CARLOS L Primary Care Unavailable ROSANA EVANS Referring Unavailabl e BIRD, CARLOS L Primary Care Unavailable ROSANA EVANS Referring Unavailabl e AZZAM, RAED H Attending Unavailable BIRD, CARLOS L Primary Care Unavailable THOMAS, BELGICA Attending Unavailable CARLOS BIRD Primary Care Unavailable CARLOS BIRD Primary Care Unavailable BELGICA THOMAS Referring Unavailable JOSEPH MEDRANO Attending Unavailable CARLOS BIRD Primary Care Unavailable Date Time Provider Department 07/06/24 SIRISHA GOMES During your visit today, we recorded the following information about you: Sirisha Nelson, TRAY 07/06/2024 12:37 PM Signed PP patient called. She has an appointment today at 1:30 for possible retained POC. She can not make it then. Asking if she can come at 3:00 PM or later. TRAY Stephens Lindsey, RN 07/06/2024 1:05 PM Signed Patient called and appointment rescheduled for tomorrow. Liliya Soriano RN Allergies As of Date: 07/06/2024 (No Known Allergies) Date Reviewed: 07/01/2024 Reviewed by: Rosana Evans APRN.SURVEY TECHNOLOGIST - Fully Assessed Reason for Visit: Retained POC [Other] Prescriptions as of 07/06/2024 - Blood Pressure Test Kit-Large (QUICK RESPONSE BP MONITOR) 1 Each once daily. - enoxaparin sodium (LOVENOX SUBCUTANEOUS) Inject subcutaneously. - Blood Pressure Test Kit-Large (QUICK RESPONSE BP MONITOR) 1 Each once daily. - Magnesium Oxide 420 mg tab Take 1 tablet by mouth daily at bedtime. - lamoTRIgine ER (LAMICTAL XR) 100 mg 24 hr tablet Take 1 tablet by mouth daily at bedtime. Take with the 300 mg tabelt. Total dose = 400 mg/day. - lamoTRIgine ER (LAMICTAL XR) 300 mg 24 hr tablet Take 1 tablet by mouth daily at bedtime. - ondansetron (ZOFRAN) 4 mg tablet Take by mouth every 8 hours as needed for nausea/vomiting. - aspirin, enteric coated (ECOTRIN LOW STRENGTH) 81 mg EC tablet Take 1 tablet by mouth once daily. - sertraline (ZOLOFT) 100 mg tablet Take 1 tablet by mouth once daily. - Rodnczyf-Wy-Xbq-Fe- FA tab Take 1 tablet by mouth once daily. - folic acid 1 mg tablet Take 4 tablets by mouth once daily. - VIT 10-IRON FUM-FOLIC ORAL Take by mouth. 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] 11/11/2013 Localized superficial swelling, mass, or lump [*11/11/2013 11/25/2013 HIGINIO positive [R76.8] 11/25/2013 Nocturia [R35.1] 01/16/2014 Dizziness [R42] 01/16/2014 Abnormal thyroid blood test [R79.89] 01/16/2014 Attention deficit hyperactivity disorder (ADHD)*04/04/2009 Seizures (HCC) [R56.9] 09/08/2023 Nicotine use disorder, F17.2 [F17.200] 11/04/2023 Malnutrition of mild degree (HCC) [E44.1] 11/04/2023 Less than 8 weeks gestation of [Z3A.0*11/05/2023 01/12/2024 Supervision of high risk in third tri*01/12/2024 Short interval between pregnancies affecting pr*01/12/2024 History of gestational diabetes in prior pregna*01/12/2024 History of polyhydramnios [Z87.59] 01/12/2024 Factor V Leiden (HCC) [D68.51] 01/12/2024 depression [F53.0] 01/12/2024 History of labor [Z87.51] 04/01/2024 [facility] Consult Note 06/16 [O99.891] 04/04/2024 Encounter Status:Closed by LILIAY SORIANO on 07/06/24 [facility] Marek 07-04-2024 ALEXN Telephone (FAMPWS) ---- BERTIN MCDUFFIE ([id number]) 1995 F Date Time Provider Department 07/04/24 CARLOS BIRDWS During your visit today, we recorded the following information about you: Jason Chakraborty RN 07/04/2024 4:51 PM Signed Xi calls to request a diagnosis for blood pressure cuff that would be covered. Abnormal uterine bleeding isn't covered. Patient doesn't have a diagnosis of HTN and I don't see any diagnosis that would cover the cuff. Xi asking if provider would like to try any other diagnosis codes. If so she would need a new prescription. If not, please call Xi back at [phone] EXT 3. TRAY Nash Alyson Taylor, APRN.SURVEY TECHNOLOGIST 07/06/2024 7:20 AM Signed New rx with new diagnosis. Thank you, Rosana Evans APRN.SURVEY TECHNOLOGIST Allergies As of Date: 07/04/2024 (No Known Allergies) Date Reviewed: 07/01/2024 Reviewed by: Rosana Evans APRN.SURVEY TECHNOLOGIST - Fully Assessed Reason for Visit: Orders [681] Primary Visit Diagnosis:Fluctuati ng blood pressure [I99.8] Other Visit Diagnosis:Abnormal uterine bleeding, [O72.1] Order(s):Blood Pressure Test Kit-Large (QUICK RESPONSE BP MONITOR)1 Each once daily.Disp: 1 EachRfl: 0 Prescriptions as of 07/20/2024 - Blood Pressure Test Kit-Large (QUICK RESPONSE BP MONITOR) 1 Each once daily. - enoxaparin sodium (LOVENOX SUBCUTANEOUS) Inject subcutaneously. - Blood Pressure Test Kit-Large (QUICK RESPONSE BP MONITOR) 1 Each once daily. - Magnesium Oxide 420 mg tab Take 1 tablet by mouth daily at bedtime. - lamoTRIgine ER (LAMICTAL XR) 100 mg 24 hr tablet Take 1 tablet by mouth daily at bedtime. Take with the 300 mg tabelt. Total dose = 400 mg/day. - lamoTRIgine ER (LAMICTAL XR) 300 mg 24 hr tablet Take 1 tablet by mouth daily at bedtime. - ondansetron (ZOFRAN) 4 mg tablet Take by mouth every 8 hours as needed for nausea/vomiting. - aspirin, enteric coated (ECOTRIN LOW STRENGTH) 81 mg EC tablet Take 1 tablet by mouth once daily. - sertraline (ZOLOFT) 100 mg tablet Take 1 tablet by mouth once daily. - Ojiorqem-Rx-Tpl-Fe- FA tab Take 1 tablet by mouth once daily. - folic acid 1 mg tablet Take 4 tablets by mouth once daily. - VIT 10-IRON FUM-FOLIC ORAL Take by mouth. 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] 11/11/2013 Localized superficial swelling, mass, or lump [*11/11/2013 11/25/2013 HIGINIO positive [R76.8] 11/25/2013 Nocturia [R35.1] 01/16/2014 Dizziness [R42] 01/16/2014 Abnormal thyroid blood test [R79.89] 01/16/2014 Attention deficit hyperactivity disorder (ADHD)*04/04/2009 Seizures (HCC) [R56.9] 09/08/2023 Nicotine use disorder, F17.2 [F17.200] 11/04/2023 Malnutrition of mild degree (HCC) [E44.1] 11/04/2023 Less than 8 weeks gestation of [Z3A.0*11/05/2023 01/12/2024 Supervision of high risk in third tri*01/12/2024 Short interval between pregnancies affecting pr*01/12/2024 History of gestational diabetes in prior pregna*01/12/2024 History of polyhydramnios [Z87.59] 01/12/2024 Factor V Leiden (HCC) [D68.51] 01/12/2024 depression [F53.0] 01/12/2024 History of labor [Z87.51] 04/01/2024 [facility] Consult Note 06/16 [O99.891] 04/04/2024 Prescriptions ordered this encounter Disp Refills Start End BLOOD PRESSURE TEST KIT-LARGE CUFF 1 Ea* 0 07/06/2024 Route: Misc Si Each once daily. Encounter Status:Closed by JASON CHAKRABORTY on 07/20/24 Normal [facility] Telephone (FAMWS) ---- BERTIN MCDUFFIE ([id number]) 1995 F Date Time Provider Department 07/04/24 [facility] During your visit today, we recorded the following information about you: Rosana Evans APRN.SURVEY TECHNOLOGIST 07/04/2024 8:52 AM Signed Please call patient and let her know that lab work results overall look good. Hgb is very slightly low but not concerning at all for significant anemia. Iron is slightly low so I would recommend starting an otc iron supplement if she isn't taking one already. Liver enzymes are slightly elevated. I would like to just repeat these in 2 weeks. Again, these are not significantly elevated but these are a change from priors. Please see how patient is feeling. Any increase in bleeding? Is she scheduled for ultrasound, I don't see it in computer if so? Thank you, Rosana Evans APRN.Ondina Atkinson LPN 07/04/2024 9:09 AM Signed Left message to return call. Georgina Roman RN 07/04/2024 9:29 AM Signed Patient notified of results and provider's instructions. Patient verbalizes understanding. Patient states that she still feels like crap. Patient does not feel lightheaded like she was feeling. Patient states that her pain however has increased. Patient had ultrasounds done this morning. Please watch for results and advise. TRAY Valdez Alyson Taylor, APRN.SURVEY TECHNOLOGIST 07/04/2024 9:32 AM Signed Waiting for imagining results to determine next steps. Thank you, Rosana Evans APRN.Rosana Shahid APRN.SURVEY TECHNOLOGIST 07/06/2024 10:46 AM Addendum Please call patient and let her know that US of abd does show mild fatty liver (which would explain the slight increase in liver enzymes) and some gallstones without any swelling, inflammation, or bile back up. Adjusting diet to increase veggies and decrease fried/fatty foods will help both of these. We will just continue to monitor this unless having significant pain. Also, US of pelvis does show endometrial thickening with possibility of retained products of conception. I spoke with her OBGYN office to discuss these results and they should be reaching out to patient to schedule appointment. OB will be taking this over since she is so newly post-. Thank you, Rosana Evans APRN.Ondina Atkinson LPN 07/06/2024 12:21 PM Signed Spoke with pt gave information information provided. Pt voices understanding. Allergies As of Date: 07/04/2024 (No Known Allergies) Date Reviewed: 07/01/2024 Reviewed by: Rosana Evans APRN.SURVEY TECHNOLOGIST - Fully Assessed Reason for Visit: Results [95] Primary Visit Diagnosis:Abnormal uterine bleeding, [O72.1] Other Visit Diagnosis:Factor V Leiden (HCC) [D68.51] Order(s):HEPATIC FUNCTION PNL [SQHFP] Order #: [id number] FUTURE Prescriptions as of 07/22/2024 - Blood Pressure Test Kit-Large (QUICK RESPONSE BP MONITOR) 1 Each once daily. - enoxaparin sodium (LOVENOX SUBCUTANEOUS) Inject subcutaneously. - Blood Pressure Test Kit-Large (QUICK RESPONSE BP MONITOR) 1 Each once daily. - Magnesium Oxide 420 mg tab Take 1 tablet by mouth daily at bedtime. - lamoTRIgine ER (LAMICTAL XR) 100 mg 24 hr tablet Take 1 tablet by mouth daily at bedtime. Take with the 300 mg tabelt. Total dose = 400 mg/day. - lamoTRIgine ER (LAMICTAL XR) 300 mg 24 hr tablet Take 1 tablet by mouth daily at bedtime. - ondansetron (ZOFRAN) 4 mg tablet Take by mouth every 8 hours as needed for nausea/vomiting. - aspirin, enteric coated (ECOTRIN LOW STRENGTH) 81 mg EC tablet Take 1 tablet by mouth once daily. - sertraline (ZOLOFT) 100 mg tablet Take 1 tablet by mouth once daily. - Glsfncpy-Vm-Wgl-Fe- FA tab Take 1 tablet by mouth once daily. - folic acid 1 mg tablet Take 4 tablets by mouth once daily. - VIT 10-IRON FUM-FOLIC ORAL Take by mouth. 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] 11/11/2013 Localized superficial swelling, mass, or lump [*11/11/2013 11/25/2013 HIGINIO positive [R76.8] 11/25/2013 Nocturia [R35.1] 01/16/2014 Dizziness [R42] 01/16/2014 Abnormal thyroid blood test [R79.89] 01/16/2014 Attention deficit hyperactivity disorder (ADHD)*04/04/2009 Seizures (HCC) [R56.9] 09/08/2023 Nicotine use disorder, F17.2 [F17.200] 11/04/2023 Malnutrition of mild degree (HCC) [E44.1] 11/04/2023 Less than 8 weeks gestation of [Z3A.0*11/05/2023 01/12/2024 Supervision of high risk in third tri*01/12/2024 Short interval between pregnancies affecting pr*01/12/2024 History of gestational diabetes in prior pregna*01/12/2024 History of polyhydramnios [Z87.59] 01/12/2024 Factor V Leiden (HCC) [D68.51] 01/12/2024 depression [F53.0] 01/12/2024 History of labor [Z87.51] 04/01/2024 M-Danna (more content not included)... Normal [facility] US ABDOMEN COMPLETEon 2024 US ABDOMEN COMPLETE * * *Final Report* * * DATE OF EXAM: Jul 04 2024 9:45AM WRU 1040 - US ABDOMEN COMPLETE / PROCEDURE REASON: multiple diagnoses * * * * Physician Interpretation * * * * EXAMINATION: COMPLETE ABDOMINAL ULTRASOUND CLINICAL HISTORY: TECHNIQUE: Sonography of the abdomen was performed. Images were obtained and stored in a permanent archive. MQ: UAbC_2 COMPARISON: None RESULT: Pancreas: Normal sonographic appearance. Portions obscured: Tail Lesions: None Liver: Echotexture: Normal, homogeneous. Echogenicity: Mildly increased Surface contour: Smooth Lesions: None. Biliary: No intrahepatic biliary duct dilation. CBD: 0.3 cm at the hilum. Gallbladder: Normal caliber -Contents: Cholelithiasis -Wall: Normal -Other: No pericholecystic fluid. Spleen: Length: 11.4 cm Lesions: None Right Kidney: -Renal length: 12.2 cm -Parenchyma: Normal parenchymal echogenicity. Normal parenchymal thickness. -Collecting system: No hydronephrosis. -Calculus: No echogenic, shadowing calculus. -Lesion: None. Left Kidney: -Renal length: 10.5 cm -Parenchyma: Normal parenchymal echogenicity. Normal parenchymal thickness. -Collecting system: No hydronephrosis. -Calculus: No echogenic, shadowing calculus. -Lesion: None. Bladder: Partially distended IVC: Imaged segment is patent. Abdominal Aorta: Imaged segment is patent. Maximum Diameter: 1.6 Ascites: None IMPRESSION: 1. Mild hepatic steatosis. 2. Cholelithiasis Extermination Supervisor: [facility] Transcribe Date/Time: Jul 04 2024 10:07A Dictated by : LOTTIE RUSSELL MD This examination was interpreted and the report reviewed and electronically signed by: LOTTIE RUSSLEL MD on Jul 04 2024 10:21AM EST [id number] Normal [facility] US Abdomenon 07-04-2024 IMPRESSION: 1. Mild hepatic steatosis. 2. Cholelithiasis Extermination Supervisor: [facility] Transcribe Date/Time: Jul 04 2024 10:07A Dictated by : LOTTIE RUSSELL MD This examination was interpreted and the report reviewed and electronically signed by: LOTTIE RUSSELL MD on Jul 04 2024 10:21AM EST DIVISION OF RADIOLOGY * * *Final Report* * * DATE OF EXAM: Jul 04 2024 9:45AM U 1040 - US ABDOMEN COMPLETE / PROCEDURE REASON: multiple diagnoses * * * * Physician Interpretation * * * * EXAMINATION: COMPLETE ABDOMINAL ULTRASOUND CLINICAL HISTORY: TECHNIQUE: Sonography of the abdomen was performed. Images were obtained and stored in a permanent archive. MQ: UAbC_2 COMPARISON: None RESULT: Pancreas: Normal sonographic appearance. Portions obscured: Tail Lesions: None Liver: Echotexture: Normal, homogeneous. Echogenicity: Mildly increased Surface contour: Smooth Lesions: None. Biliary: No intrahepatic biliary duct dilation. CBD: 0.3 cm at the hilum. Gallbladder: Normal caliber -Contents: Cholelithiasis -Wall: Normal -Other: No pericholecystic fluid. Spleen: Length: 11.4 cm Lesions: None Right Kidney: -Renal length: 12.2 cm -Parenchyma: Normal parenchymal echogenicity. Normal parenchymal thickness. -Collecting system: No hydronephrosis. -Calculus: No echogenic, shadowing calculus. -Lesion: None. Left Kidney: -Renal length: 10.5 cm -Parenchyma: Normal parenchymal echogenicity. Normal parenchymal thickness. -Collecting system: No hydronephrosis. -Calculus: No echogenic, shadowing calculus. -Lesion: None. Bladder: Partially distended IVC: Imaged segment is patent. Abdominal Aorta: Imaged segment is patent. Maximum Diameter: 1.6 Ascites: None DIVISION OF RADIOLOGY Provider, [facility] [place] - 07/04/2024 * * *Final Report* * * DATE OF EXAM: Jul 04 2024 9:45AM WRU 1040 - US ABDOMEN COMPLETE / PROCEDURE REASON: multiple diagnoses * * * * Physician Interpretation * * * * EXAMINATION: COMPLETE ABDOMINAL ULTRASOUND CLINICAL HISTORY: TECHNIQUE: Sonography of the abdomen was performed. Images were obtained and stored in a permanent archive. MQ: UAbC_2 COMPARISON: None RESULT: Pancreas: Normal sonographic appearance. Portions obscured: Tail Lesions: None Liver: Echotexture: Normal, homogeneous. Echogenicity: Mildly increased Surface contour: Smooth Lesions: None. Biliary: No intrahepatic biliary duct dilation. CBD: 0.3 cm at the hilum. Gallbladder: Normal caliber -Contents: Cholelithiasis -Wall: Normal -Other: No pericholecystic fluid. Spleen: Length: 11.4 cm Lesions: None Right Kidney: -Renal length: 12.2 cm -Parenchyma: Normal parenchymal echogenicity. Normal parenchymal thickness. -Collecting system: No hydronephrosis. -Calculus: No echogenic, shadowing calculus. -Lesion: None. Left Kidney: -Renal length: 10.5 cm -Parenchyma: Normal parenchymal echogenicity. Normal parenchymal thickness. -Collecting system: No hydronephrosis. -Calculus: No echogenic, shadowing calculus. -Lesion: None. Bladder: Partially distended IVC: Imaged segment is patent. Abdominal Aorta: Imaged segment is patent. Maximum Diameter: 1.6 Ascites: None IMPRESSION IMPRESSION: 1. Mild hepatic steatosis. 2. Cholelithiasis Extermination Supervisor: [facility] Transcribe Date/Time: Jul 04 2024 10:07A Dictated by : LOTTIE RUSSELL MD This examination was interpreted and the report reviewed and electronically signed by: LOTTIE RUSSELL MD on Jul 04 2024 10:21AM EST [facility] Radiology Study observation (narrative) [facility] US AbdomenOrdered By: Ccf Pr ovider on 07-04-2024 [facility] US FEMALE PELV TRANSABD COMP LETEon 07-04-2024 US FEMALE PELV TRANSABD COMPLETE * * *Final Report* * * DATE OF EXAM: Jul 04 2024 9:50AM WRU 1065 - US FEMALE PELV TRANSABD COMPLETE / PROCEDURE REASON: Abnormal uterine bleeding, * * * * Physician Interpretation * * * * EXAMINATION: TRANSABDOMINAL FEMALE PELVIC ULTRASOUND CLINICAL HISTORY: bleeding TECHNIQUE: Sonography of the pelvis was performed by transabdominal (limited) techniques. Images were obtained and stored in a permanent archive. MQ: [facility]_2021 COMPARISON: None RESULT: Uterus: -Size: 13.1 x 7.2 x 11.3 cm -Orientation: Anteverted -Endometrial echo complex: Evaluation of the endometrium was adequate. Heterogeneous solid material within the endometrium with trace vascularity. The endometrial echo complex measured 2.1 cm. -Cervix: Unremarkable. -Adenomyosis assessment: There are no sonographic findings of adenomyosis. -Fibroids: There are no fibroids. Right Ovary: 3.4 x 1.7 x 1.9 cm Normal appearance Left Ovary: 2.8 x 1.1 x 2.3 cm Normal appearance Free Fluid: No abnormal free fluid is present. IMPRESSION: Endometrium is thick and contains heterogeneous solid material within it. Trace vascularity. Retained products of conception cannot be excluded. Recommend correlation with beta hCG and follow-up ultrasound. ACTIONABLE RESULT: FOLLOW-UP Acuity: Actionable Findings: Female reproductive tract (pelvis, adnexa) Routing code: WH_1 Recommendation: Unlisted Recommendation (see report) Time Frame: At the discretion of the clinical team. COMMUNICATION: Results will be communicated with the ordering provider via [employer] staff message or phone message by [facility] within 2 business days of report finalization. --END OF FINDING-- Extermination Supervisor: [facility] Transcribe Date/Time: Jul 05 2024 7:36A Dictated by : SHERLEY RAMON MD This examination was interpreted and the report reviewed and electronically signed by: SHERLEY RAMON MD on Jul 05 2024 7:40AM EST [id number] ACTIONABLE Invalid Interpretation Code [facility] Abdomen/Pelvis W IV Cont ONL Yon 07-02-2024 Abdomen/Pelvis W IV Cont ONLY [facility] Services [address] [place] [address] [id number] Abdomen/Pelvis W IV Cont ONLY MR#: [id number] Acct: [id number] Name: BERTIN MCDUFFIE Rep #: [id number] : 1995 F 28 From: Mikey Pandey MD PCP: ROSANA EVANS BLAST FURNACE TENDER-C Status: REG ER Study: Abdomen/Pelvis W IV Cont ONLY Date of Exam: Exam# [id number] Ordering Dr: Deniz Ya SIGNALING PROJECT ENGINEER-C -[id number] EXAM: CT ABDOMEN AND PELVIS WITH INTRAVENOUS CONTRAST CLINICAL INDICATION: abdominal pain TECHNIQUE: Helically acquired images were obtained of the abdomen and pelvis with intravenous contrast. This CT exam was performed using one or more of the following dose reduction techniques: automated exposure control, adjustment of the mA and/or kV according to patient size, and/or use of iterative reconstruction technique. CONTRAST: IV 100mL Isovue-370 COMPARISON: No relevant prior studies available. FINDINGS: LOWER THORAX: Unremarkable. Lung bases are clear. No cardiomegaly. No significant pericardial effusion. ABDOMEN: LIVER: Unremarkable. Homogeneous. No focal mass. GALLBLADDER AND BILE DUCTS: There are several gallstones present. There is no inflammation. No gallbladder distention or wall edema. No intra- or extrahepatic biliary ductal dilation. PANCREAS: Unremarkable. No focal cystic or solid mass. SPLEEN: Unremarkable. Normal size without focal cystic or solid mass. ADRENALS: Unremarkable. No nodules. KIDNEYS AND URETERS: Unremarkable. Normal renal size and position. No hydronephrosis. STOMACH AND BOWEL: Unremarkable. No stomach or bowel distention. No focal inflammatory change. PELVIS: APPENDIX: No evidence of acute appendicitis. BLADDER: Unremarkable. REPRODUCTIVE: The uterus is enlarged measuring 12.8 x 8.3 x 10.6 cm with fluid in the endometrial cavity. ABDOMEN and PELVIS: INTRAPERITONEAL SPACE: Unremarkable. No ascites or other fluid collection. No free air. BONES/JOINTS: Unremarkable. No suspicious lytic or blastic abnormality. SOFT TISSUES: Unremarkable. No discrete abdominal or pelvic wall hernia. VASCULATURE: Unremarkable. Abdominal aorta is non-dilated. LYMPH NODES: Unremarkable. No enlarged lymph nodes. CT/Abdomen/Pelvis W IV Cont ONLY IMPRESSION: Enlarged uterus with fluid in the endometrial cavity. Patient is apparently . No other acute abnormalities. Electronically Signed: Mikey Pandey MD at 19:15 EST , CC: JAQUAN Ya; ROSANA KILLIAN-Misty Extermination Supervisor: Signed Normal [facility] CBC W/Diff, Automatedon 06-15 Absolute Lymph 2.13 X10 3/uL Normal 0.83-4.51 [facility] Comment on above: Performed By: #### L 400.0001 #### [facility] [address] [place], [address] Absolute Neut 3.6 X10 3/uL Normal 2.0-7.7 [facility] Comment on above: Performed By: #### L 400.0001 #### [facility] [address] [place], [address] Basophils/100 WBC (Bld) 0.8 % Normal 0-1 [facility] Comment on above: Performed By: #### L 400.0001 #### [facility] [address] [place], [address] Eosinophils/100 WBC (Bld) 2.4 % Normal 0-5 [facility] Comment on above: Performed By: #### L 400.0001 #### [facility] [address] [place], [address] Erythrocyte distribution width (RBC) [Ratio] 15.4 % High 11.6-14.6 [facility] Comment on above: Performed By: #### L 400.0001 #### [facility] [address] [place], [address] Hematocrit (Bld) [Volume fraction] 37.0 % Normal 37-47 [facility] Comment on above: Performed By: #### L 400.0001 #### [facility] [address] [place], [address] Hemoglobin (Bld) [Mass/Vol] 11.7 g/dL Low 12.0-15.0 [facility] Comment on above: Performed By: #### L 400.0001 #### [facility] [address] [place], [address] IG% 0.300 Normal 0.0-0.9 [facility] Comment on above: Result Comment: IG% - Immature Granulocytes (promyelocytes, myelocytes and metamyelocytes) > 1% indicates that a LEFT SHIFT is Present. Performed By: #### L 400.0001 #### [facility] [address] [place], [address] Lymphocytes/100 WBC (Bld) 32.4 % Normal 19-41 [facility] Comment on above: Performed By: #### L 400.0001 #### [facility] [address] [place], [address] MCH (RBC) [Entitic mass] 26.7 pg Low 27.0-32.0 [facility] Comment on above: Performed By: #### L 400.0001 #### [facility] [address] [place], [address] MCHC (RBC) [Mass/Vol] 31.6 g/dL Low 32-36 [facility] Comment on above: Performed By: #### L 400.0001 #### [facility] [address] [place], [address] MCV (RBC) [Entitic vol] 84.3 fL Normal 81-99 [facility] Comment on above: Performed By: #### L 400.0001 #### [facility] [address] [place], [address] Monocytes/100 WBC (Bld) 9.7 % Normal 0-10 [facility] Comment on above: Performed By: #### L 400.0001 #### [facility] [address] [place], [address] Neutrophils/100 WBC (Bld) 54.4 % Normal 47-70 [facility] Comment on above: Performed By: #### L 400.0001 #### [facility] [address] [place], [address] Nucleated RBC (Bld) [#/Vol] 0 10*3/uL Normal 0-5 [facility] Comment on above: Performed By: #### L 400.0001 #### [facility] [address] [place], [address] Platelet mean volume (Bld) [Entitic vol] 9.9 fL Normal 6.2-12.0 [facility] Comment on above: Performed By: #### L 400.0001 #### [facility] [address] [place], [address] Platelets (Bld) [#/Vol] 394 10*3/uL Normal 150-450 [facility] Comment on above: Performed By: #### L 400.0001 #### [facility] [address] [place], [address] RBC (Bld) [#/Vol] 4.39 10*6/uL Normal 4.2-5.4 [facility] Comment on above: Performed By: #### L 400.0001 #### [facility] [address] [place], [address] RDW SD 46.4 fl High 35.1-43.9 [facility] Comment on above: Performed By: #### L 400.0001 #### [facility] [address] [place], [address] WBC (Bld) [#/Vol] 6.6 10*3/uL Normal 4.4-11.0 [facility] Comment on above: Performed By: #### L 400.0001 #### [facility] [address] [place], [address] Comprehensive Metabolic Prof ilon 07-02-2024 Albumin [Mass/Vol] 2.9 g/dL Low 3.2-5.0 [facility] Comment on above: Performed By: #### L 400.0001 #### [facility] [address] [place], [address] Albumin/Globulin [Mass ratio] 0.6 {ratio} Low 0.9-2.4 [facility] Comment on above: Performed By: #### L 400.0001 #### [facility] [address] [place], [address] ALK P 152 U/L High 45-117 [facility] Comment on above: Performed By: #### L 400.0001 #### [facility] [address] [place], [address] ALT [Catalytic activity/Vol] 41 U/L Normal 13-56 [facility] Comment on above: Performed By: #### L 400.0001 #### [facility] [address] [place], [address] AST [Catalytic activity/Vol] 30 U/L Normal 15-37 [facility] Comment on above: Performed By: #### L 400.0001 #### [facility] [address] [place], [address] Bilirubin [Mass/Vol] 0.30 mg/dL Normal 0.20-1.00 [facility] Comment on above: Result Comment: For patients on eltrombopag therapy, use of Dimension [place] TBIL is not recommended. Performed By: #### L 400.0001 #### [facility] [address] [place], [address] BUN/CRE 15.4 RATIO Normal 10-20 [facility] Comment on above: Performed By: #### L 400.0001 #### [facility] [address] [place], [address] CA,Total 9.1 mg/dL Normal 8.5-10.1 [facility] Comment on above: Performed By: #### L 400.0001 #### [facility] [address] [place], [address] Chloride [Moles/Vol] 111 mmol/L High 98-107 [facility] Comment on above: Performed By: #### L 400.0001 #### [facility] [address] [place], [address] CO2 [Moles/Vol] 23.0 mmol/L Normal 21.0-32.0 [facility] Comment on above: Performed By: #### L 400.0001 #### [facility] [address] [place], [address] Creatinine [Mass/Vol] 0.65 mg/dL Normal 0.55-1.02 [facility] Comment on above: Result Comment: The validity of the calculated GFR GFRAA in patients over 70 years has not been determined. Clinical correlation is essential. Performed By: #### L 400.0001 #### [facility] [address] [place], [address] ECRCL 130.51 ml/min Normal [facility] Comment on above: Performed By: #### L 400.0001 #### [facility] [address] [place], [address] EST GFR - AA 140 mL/min Normal >60 [facility] Comment on above: Result Comment: Afri can English GFR Calc Performed By: #### L 400.0001 #### [facility] [address], [address] GAP 6 Normal 5-15 [facility] Comment on above: Performed By: #### L 400.0001 #### [facility] [address] [place], [address] GFR/1.73 sq M.predicted among non-blacks MDRD (S/P/Bld) [Vol rate/Area] 116 mL/min/{1.73_m2} Normal >60 [facility] Comment on above: Result Comment: Non- GFR Calc Performed By: #### L 400.0001 #### [facility] [address] [place], [address] Globulin (S) [Mass/Vol] 4.5 g/dL High 2.2-4.2 [facility] Comment on above: Performed By: #### L 400.0001 #### [facility] [address] [place], [address] Glucose [Mass/Vol] 75 mg/dL Normal 74-106 [facility] Comment on above: Performed By: #### L 400.0001 #### [facility] [address] [place], [address] Potassium [Moles/Vol] 3.6 mmol/L Normal 3.5-5.1 [facility] Comment on above: Performed By: #### L 400.0001 #### [facility] [address] [place], [place], [address] Sodium [Moles/Vol] 140 mmol/L Normal 136-145 [facility] Comment on above: Performed By: #### L 400.0001 #### [facility] [address] [place], [place], [address] T PROT 7.4 g/dL Normal 6.4-8.2 [facility] Comment on above: Performed By: #### L 400.0001 #### [facility] [address] [place], [place], [address] Urea nitrogen [Mass/Vol] 10 mg/dL Normal 7-18 [facility] Comment on above: Performed By: #### L 400.0001 #### [facility] [address] [place], [place], [address] Emergency Department Summary on 07-02-[address] [facility] Medical Records Department [address] [place] [address] Emergency Department Summary 07/02/24 MR#: [id number] Acct: [id number] Name: BERTIN MCDUFFIE Rep #: [id number] : 1995 28 From: Yeison Llamas DO PCP: ROSANA EVANS [employer] TENDER-C Status:DEP ER Location: ED HPI HPI - Female History of Present Illness Chief Complaint: Vag Bleeding Narrative Narrative: Patient is a 28-year-old female with history of factor V Leiden, depression who presents to the emergency department for pelvic pain, as well as right upper quadrant pain. Patient recently gave on June 27, 2024, x 5 days ago. Patient is a 8, para 4, 4. Patient states that the delivery was unremarkable, she is currently on Lovenox. Patient presents with severe pain to her lower abdomen as well as right upper quadrant. [facility] Medical History (Updated 07/02/24 @ 20:50 by JAQUAN Venegas) History of pre-term labor Infertility Trauma Blood clotting disorder depression Psychiatric disorder Seizures Anxiety Depression Factor V Leiden Seizure disorder Gallstones Home Medications ???Medication ???Instructions ???Recorded ???Last Taken ???Type buspirone 15 mg tablet 15 mg PO BID 02/12/22 Unknown History lurasidone 80 mg tablet (Latuda) 80 mg PO DAILY 02/12/22 Unknown History ondansetron 4 mg disintegrating 4 mg PO Q8H PRN PRN Nausea #10 tabs 03/03/24 Unknown Rx tablet cyclobenzaprine 10 mg tablet 10 mg PO TID PRN PRN muscle spasm 06/27/24 Unknown History folic acid 1 mg tablet 4 mg PO DAILY 06/27/24 Unknown History lamotrigine 300 mg tablet,extended 300 mg PO 06/27/24 Unknown History release 24 hr lamotrigine 50 mg tablet,extended 50 mg PO DAILY 06/27/24 Unknown History release 24 hr vits no.130-ferrous fum 1 tab PO DAILY 06/27/24 Unknown History 27 mg iron-folic acid 800 mcg tablet ( Vitamin) sertraline 100 mg tablet 100 mg PO DAILY 06/27/24 Unknown History acetaminophen 500 mg tablet 1,000 mg (2 x 500 mg) PO Q6H PRN 06/28/24 Unknown Rx PRN Pain 1-10 Or Fever #0 tabs enoxaparin 40 mg/0.4 mL 40 mg (0.4 mL) subcut DAILY@1730 6 06/28/24 Unknown Rx subcutaneous syringe weeks #20 mL naproxen 500 mg tablet 500 mg PO Q8H PRN PRN Pain Score 06/28/24 Unknown Rx 1-10 #0 tabs Allergy/AdvReac Type Severity Reaction Status Date / Time No Known Allergies Allergy Verified 07/02/24 15:49 Family History no significant family his Social History Smoking Status: Former smoker substance use type: marijuana ROS ROS ED ROS Narrative Constitutional: Negative for fever, chills, weight loss, weakness Eyes: Negative for vision loss, vision change, double vision ENT: Negative for any sore throat, ear pain, congestion Cardiovascular: Negative for any chest pain, tightness, palpitations Respiratory: Negative for any cough, sputum production, hemoptysis, dyspnea, dyspnea on exertion, orthopnea Gastrointestinal: Negative for any nausea, vomiting, diarrhea, constipation, blood in stool, blood in vomit. Positive for abdominal pain, lower abdominal pain, pelvic pain : Negative for any urinary frequency, dysuria, retention, blood in urine Muscle skeletal: Negative for any neck pain, back pain Neurological: Negative for any headache, syncope, dizziness Skin: Negative for any rashes, itching, abrasions, lacerations Psychiatric: Negative for any depression, anxiety, stress, suicidal ideation, homicidal ideation Hematologic: Negative for any excessive bruising, easy bleeding EXAM Physical Exam Narrative Exam Narrative: Vital signs reviewed. Patient is slightly pale appearance however patient's vital signs are stable HEET: Head normocephalic atraumatic, TMs clear bilaterally. Posterior pharynx is clear, moist mucous membranes. Nares clear bilaterally. Neck: Supple with no lymphadenopathy or tenderness. No signs of meningismus. Cardiac: Regular rate and rhythm no murmurs gallops or rubs, equal peripheral pulses bilaterally. Respiratory: Lungs clear to auscultation bilaterally. No chest tenderness. Abdomen: Soft, nondistended. No abdominal bruit or pulsatile masses. No hepatosplenomegaly. Tenderness to the lower abdomen, this may be more of a pelvic pain. Patient also has pain to the right upper quadrant. Extremities: No peripheral edema, no signs of gross trauma or deformity. Active full range of motion of all extremities. Neuro: Cranial nerves II through XII intact, no focal neurological deficits. Skin: Clean dry and intact with no rash, purpura, petechiae, vesicles or pustules. Backs/flank: No CVA tenderness, no midline spinal tenderness, no deformity. Psych: Normal mood and affect. No SI, HI or acute psychosis. Va (more content not included)... Normal [facility] LDHon 07-02-2024 LDH 223 U/L Normal 84-246 [facility] Comment on above: Performed By: #### L 400.0001 #### [facility] [address] [place], [address] Lipaseon 07-02-2024 Lipase [Catalytic activity/Vol] 46 U/L Normal 13-75 [facility] Comment on above: Result Comment: Dilshad nugent note: LIPASE revised reference range effective 22. New Lipase methodology. Expected to produce lower values than the previous assay method. NEW Reference Range: 13 - 75 U/L Performed By: #### L 400.0001 #### [facility] [address] [place], [address] Transvaginal Non-on 07-02-2024 Transvaginal Non- [facility] [address] [place] [address] Transvaginal Non- MR#: [id number] Acct: [id number] Name: BRETIN MCDUFFIE Rep #: [id number] : 1995 F 28 From: Mikey Pandey MD PCP: ROSANA DAWKINS Status: REG ER Study: Transvaginal Non- Date of Exam: Exam# [id number] Ordering Dr: Deniz Ya ADDENDUM by Dr. Mikey Pandey MD on 07/02/24 at 1920 [id number] EXAM: US PELVIS TRANSVAGINAL CLINICAL INDICATION: pain TECHNIQUE: Transvaginal pelvic ultrasound was performed with grayscale and color Doppler imaging. Transvaginal imaging was used for better evaluation of the endometrium and adnexa. COMPARISON: No relevant prior studies available. FINDINGS: UTERUS/CERVIX: Uterus measures 11.5 x 10.9 x 7.8 cm. The endometrium is heterogeneous and thickened measuring 2.7 cm. Anteverted. There is no uterine mass. RIGHT OVARY: The right ovary measures 2.9 x 2.1 x 1.5 cm. Blood flow is present in the right ovary. LEFT OVARY: Left ovary measures 3.1, 0.1 0.2 cm. Blood flow is present in the left ovary. FREE FLUID: None. BLADDER: Empty bladder which cannot be evaluated with this probe. 07/02/241919 Date cc: JAQUAN Ya; ROSANA DAWKINS * Signed ADDENDUM by Dr. Mikey Pandey MD on 07/02/24 at 1920 US/Transvaginal Non- IMPRESSION: Thickened heterogeneous endometrium. There is no obvious blood flow but this may represent retained products of conception. N.B. : The above Results were Read Back by Mikey Pandey MD to Yeison Llamas MD, and understanding confirmed on 07/02/2024 19:32:33 (ET). Electronically Signed: Mikey Pandey MD at 19:20 EST , 07/02/241938 Date cc: JAQUAN Ya; ROSANA DAWKINS * Signed We are attempting to reach an attending provider to discuss findings. An addendum with communication details will be sent when the communication is complete. [id number] EXAM: US PELVIS TRANSVAGINAL CLINICAL INDICATION: pain TECHNIQUE: Transvaginal pelvic ultrasound was performed with grayscale and color Doppler imaging. Transvaginal imaging was used for better evaluation of the endometrium and adnexa. COMPARISON: No relevant prior studies available. FINDINGS: UTERUS/CERVIX: Uterus measures 11.5 x 10.9 x 7.8 cm. The endometrium is heterogeneous and thickened measuring 2.7 cm. Anteverted. There is no uterine mass. RIGHT OVARY: The right ovary measures 2.9 x 2.1 x 1.5 cm. Blood flow is present in the right ovary. LEFT OVARY: Left ovary measures 3.1, 0.1 0.2 cm. Blood flow is present in the left ovary. FREE FLUID: None. BLADDER: Empty bladder which cannot be evaluated with this probe. US/Transvaginal Non- IMPRESSION: Thickened heterogeneous endometrium. There is no obvious blood flow but this may represent retained products of conception. Electronically Signed: Mikey Pandey MD at 19:20 EST , CC: JAQUAN Ya; ROSANA DAWKINS Extermination Supervisor: Signed Normal [facility] Urinalysis, Completeon 07-02 BACTERIA RARE Normal None Seen [facility] Comment on above: Order Comment: COLLE CTOR TO SPECIFY Performed By: #### L 400.0001 #### [facility] [address] [place], [address] Mucus Ql (Urine sed) 2+ /hpf Normal [facility] Comment on above: Order Comment: NATALIA CTOR TO SPECIFY Performed By: #### L 400.0001 #### [facility] [address] [place], [address] RBC 5-10 SEEN Normal 0-5 [facility] Comment on above: Order Comment: NATALIA CTOR TO SPECIFY Performed By: #### L 400.0001 #### [facility] [address] [place], [address] WBC 5-10 SEEN Normal 0-5 [facility] Comment on above: Order Comment: NATALIA CTOR TO SPECIFY Performed By: #### L 400.0001 #### [facility] [address] [place], [address] EPI,SQUAMOUS 0-5 SEEN Normal 5-10 [facility] Comment on above: Order Comment: NATALIA CTOR TO SPECIFY Performed By: #### L 400.0001 #### [facility] [address] [place], [address] CBC W Auto Differential pane l (Bld)on 07-01-2024 Basophils (Bld) [#/Vol] 0.05 10*3/uL Normal <0.11 [facility] Comment on above: Order Comment: Speci men Type: BLOOD SPECIMENOrdering Facility: [facility] Address: [address] [place] [address] [place] [address] Performed By: #### 5 7021-8 ####[facility]CLIA [id number] [place] [address] [place] Basophils/100 WBC (Bld) 0.6 % Normal [facility] Comment on above: Order Comment: Speci men Type: BLOOD SPECIMENOrdering Facility: [facility] Address: [address] [place] [address] Performed By: #### 5 7021-8 ####[facility]CLIA [id number] [place] [address] [place] Differential cell count method Nom (Bld) Auto Normal [facility] Comment on above: Order Comment: Speci men Type: BLOOD SPECIMENOrdering Facility: [facility] Address: [address] [place] [address] Performed By: #### 5 7021-8 ####[facility]CLIA [id number] [place] [address] [place] Eosinophils (Bld) [#/Vol] 0.20 10*3/uL Normal <0.46 [facility] Comment on above: Order Comment: Speci men Type: BLOOD SPECIMENOrdering Facility: [facility] Address: [address] [place] [address] Performed By: #### 5 7021-8 ####[facility]CL[facility] [id number] [place] [address] [place] Eosinophils/100 WBC (Bld) 2.5 % Normal [facility] Comment on above: Order Comment: Speci men Type: BLOOD SPECIMENOrdering Facility: [facility] Address: [address] [place] [address] Performed By: #### 5 7021-8 ####[facility]CLIA [id number] [place] [address] [place] Erythrocyte distribution width (RBC) [Ratio] 15.2 % High 11.5-15.0 [facility] Comment on above: Order Comment: Speci men Type: BLOOD SPECIMENOrdering Facility: [facility] Address: [address] [place] [address] Performed By: #### 5 7021-8 ####[facility]CLIA [id number] [place] [address] [place] Hematocrit (Bld) [Volume fraction] 36.1 % Normal 36.0-46.0 [facility] Comment on above: Order Comment: Speci men Type: BLOOD SPECIMENOrdering Facility: [facility] Address: [address] [place] [address] Performed By: #### 5 7021-8 ####[facility]CLIA [id number] [place] [address] [place] Hemoglobin (Bld) [Mass/Vol] 11.1 g/dL Low 11.5-15.5 [facility] Comment on above: Order Comment: Speci men Type: BLOOD SPECIMENOrdering Facility: [facility] Address: [address] [place] [address] Performed By: #### 5 7021-8 ####[facility]CLIA [id number] [place] [address] [place] Immature granulocytes (Bld) [#/Vol] 0.03 10*3/uL Normal <0.10 [facility] Comment on above: Order Comment: Speci men Type: BLOOD SPECIMENOrdering Facility: [facility] Address: [address] [place] [address] Performed By: #### 5 7021-8 ####[facility]CLIA [id number] [place] [address] [place] Immature granulocytes/100 WBC (Bld) 0.4 % Normal [facility] Comment on above: Order Comment: Speci men Type: BLOOD SPECIMENOrdering Facility: [facility] Address: [address] [place] [address] Performed By: #### 5 7021-8 ####[facility]CLIA [id number] [place] [address] [place] Lymphocytes (Bld) [#/Vol] 1.86 10*3/uL Normal 1.00-4.00 [facility] Comment on above: Order Comment: Speci men Type: BLOOD SPECIMENOrdering Facility: [facility] Address: [address] [place] [address] Performed By: #### 5 7021-8 ####[facility] LABIA [id number] [place] [address] [place] Lymphocytes/100 WBC (Bld) 23.6 % Normal [facility] Comment on above: Order Comment: Speci men Type: BLOOD SPECIMENOrdering Facility: [facility] Address: [address] [place] [address] Performed By: #### 5 7021-8 ####[facility] LABIA [id number] [place] [address] [place] MCH (RBC) [Entitic mass] 26.7 pg Normal 26.0-34.0 [facility] Comment on above: Order Comment: Speci men Type: BLOOD SPECIMENOrdering Facility: [facility] Address: [address] [place] [address] Performed By: #### 5 7021-8 ####[facility] LABIA [id number] [place] [address] [place] MCHC (RBC) [Mass/Vol] 30.7 g/dL Normal 30.5-36.0 [facility] Comment on above: Order Comment: Speci men Type: BLOOD SPECIMENOrdering Facility: [facility] Address: [address] [place] [address] Performed By: #### 5 7021-8 ####[facility] LABIA [id number] [place] [address] [place] MCV (RBC) [Entitic vol] 86.8 fL Normal 80.0-100.0 [facility] Comment on above: Order Comment: Speci men Type: BLOOD SPECIMENOrdering Facility: [facility] Address: [address] [place] [address] Performed By: #### 5 7021-8 ####[facility] LABCLIA [id number] [place] [address] [place] [place] Monocytes (Bld) [#/Vol] 0.55 10*3/uL Normal <0.87 [facility] Comment on above: Order Comment: Speci men Type: BLOOD SPECIMENOrdering Facility: [facility] Address: [address] [place] [address] Performed By: #### 5 7021-8 ####[facility] LABCLIA [id number] [place] [address] [place] Monocytes/100 WBC (Bld) 7.0 % Normal [facility] Comment on above: Order Comment: Speci men Type: BLOOD SPECIMENOrdering Facility: [facility] Address: [address] [place] [address] Performed By: #### 5 7021-8 ####[facility] LABIA [id number] [place] [address] [place] Neutrophils (Bld) [#/Vol] 5.20 10*3/uL Normal 1.45-7.50 [facility] Comment on above: Order Comment: Speci men Type: BLOOD SPECIMENOrdering Facility: [facility] Address: [address] [place] [address] Performed By: #### 5 7021-8 ####[facility] LABCLIA [id number] [place] [address] [place] Neutrophils/100 WBC (Bld) 65.9 % Normal [facility] Comment on above: Order Comment: Speci men Type: BLOOD SPECIMENOrdering Facility: [facility] Address: [address] [place] [address] Performed By: #### 5 7021-8 ####[facility] LABCLIA [id number] [place] [address] [place] Nucleated RBC (Bld) [#/Vol] 10*3/uL Normal <0.01 [facility] Comment on above: Order Comment: Speci men Type: BLOOD SPECIMENOrdering Facility: [facility] Address: [address] [place] [address] Performed By: #### 5 7021-8 ####[facility] LABCLIA [id number] [place] [address] [place] Nucleated RBC/100 WBC (Bld) [Ratio] 0.0 /100 WBC Normal [facility] Comment on above: Order Comment: Speci men Type: BLOOD SPECIMENOrdering Facility: [facility] Address: [address] [place] [address] Performed By: #### 5 7021-8 ####[facility] LABIA [id number] [place] [address] [place] Platelet mean volume (Bld) [Entitic vol] 10.8 fL Normal 9.0-12.7 [facility] Comment on above: Order Comment: Speci men Type: BLOOD SPECIMENOrdering Facility: [facility] Address: [address] [place] [address] Performed By: #### 5 7021-8 ####[facility] LABIA [id number] [place] [address] [place] Platelets (Bld) [#/Vol] 387 10*3/uL Normal 150-400 [facility] Comment on above: Order Comment: Speci men Type: BLOOD SPECIMENOrdering Facility: [facility] Address: [address] [place] [address] Performed By: #### 5 7021-8 ####[facility] LABCLIA [id number] [place] [address] [place] RBC (Bld) [#/Vol] 4.16 10*6/uL Normal 3.90-5.20 [facility] Comment on above: Order Comment: Speci men Type: BLOOD SPECIMENOrdering Facility: [facility] Address: [address] [place] [address] Performed By: #### 5 7021-8 ####[facility] LABCLIA [id number] [place] [address] [place] WBC (Bld) [#/Vol] 7.89 10*3/uL Normal 3.70-11.00 [facility] Comment on above: Order Comment: Speci men Type: BLOOD SPECIMENOrdering Facility: [facility] Address: [address] [place] [address] Performed By: #### 5 7021-8 ####[facility] LABCLIA [id number] [address] [place] CNOVon 07-01-2024 [facility] BERTIN MCDUFFIE ([id number]) 1995 F Date Time Provider Department 07/01/24 11:40 AM ROSANA EVANS FAMPWS During your visit today, we recorded the following information about you: Pulse Blood pressure Weight 90/minute 90/60 72.8 kg Rosana Evans, OBGYN NURSE.SURVEY TECHNOLOGIST 07/01/2024 12:47 PM Signed Chief Complaint Patient presents with: irgular heart beat and dizziness since delievery HPI Bertin Mcduffie is a 28 year old female who presents here today for Above Complaints. Bertin is an established patient of Dr. Pelon DO. Concerns today... Recently x 4 days. Delivered baby boy on 06/27/24. Hx of factor V leiden, discharged on lovenox x 6 weeks. reports significant blood loss during delivery and pt was given vitamin K injection to stop the bleeding. Pt reports very minimal bleeding since discharge. Only having to wear a liner pad. This is 4th child and pt reports significant less bleeding so far this time. Pt is . Does report uterine contractions with . Pt initially made appointment d/t concerns for elevated HP and BP readings at home via apple watch. Reports episodes of increase HR with palpitations that leads to blurred vision. Pt reports episodes of spots in vision with dizziness that will last a few minutes and then resolve on own. Reports episodes occur mainly with position change. Pt was concerned this was elevated BP. Pt reports systolic BP from watch to be 120-140? Pt reports SOB with exertion. Pt also reports mild RUQ abd pain. Reports hx of gallstones during that were found during ultrasound. Pt denies current symptoms associated with food. Reports RUQ abd pain is pretty stable and mild. Hx of epilepsy. On lamictal regimen. Did need dosage change during . Was told to follow up with neurology a few months post to adjust dosage again. Last 14 Encounter BP Readings: Date: BP: 07/01/2024 90/60 06/23/2024 116/78 06/17/2024 114/62 06/03/2024 110/62 05/20/2024 102/60 04/26/2024 102/60 04/15/2024 110/64 04/01/2024 118/64 03/14/2024 90/64 03/04/2024 116/68 02/16/2024 120/60 02/01/2024 98/60 01/12/2024 100/60 10/29/2023 92/54 Past medical history, appointments, medications, allergies reviewed. Previous Medical History PAST MEDICAL HISTORY Diagnosis Date Anemia Borderline personality disorder (HCC) Depression with anxiety Diabetes, gestational Factor V Leiden (HCC) Diagnosed 2015 History of gestational diabetes in prior , currently 01/12/2024 depression Seizure (HCC) Seizures (HCC) 06/15/2012 Seizures (HCC) 09/08/2023 Last seizure 2022, admisss[facility] to [facility] 09/07 aand 11/02 Dr Oz Terrazas Previous Surgical History PAST SURGICAL HISTORY Procedure Laterality Date DANDC, DIAG AND/OR THERAPEUTIC 2016 and 2021 Family History FAMILY HISTORY Problem Relation Age of Onset Thyroid Mother Diabetes Mother Hypertension Mother Migraines Mother other (ibs) Mother Arthritis Mother Depression Mother Anxiety disorder Mother Factor 5 Leiden Father Heart Father Hypertension Father Thyroid Father Migraines Father Depression Father Anxiety disorder Father Depression Brother Post-Traumatic Stress Disorder Brother Anxiety disorder Brother Hypertension Maternal Grandmother Glaucoma Maternal Grandmother Arthritis Maternal Grandmother Osteoporosis Maternal Grandmother other (degenerative disc) Maternal Grandmother No Known Problems Maternal Grandfather other (degenerative disc) Paternal Grandmother No Known Problems Paternal Grandfather Seizures No Family History Patient Allergies ALLERGIES No Known Allergies Current Medications Current Outpatient Medications on File Prior to Visit Medication Sig Magnesium Oxide 420 mg tab Take 1 tablet by mouth daily at bedtime. lamoTRIgine ER (LAMICTAL XR) 100 mg 24 hr tablet Take 1 tablet by mouth daily at bedtime. Take with the 300 mg tabelt. Total dose = 400 mg/day. (Patient not taking: Reported on 04/26/2024) lamoTRIgine ER (LAMICTAL XR) 300 mg 24 hr tablet Take 1 tablet by mouth daily at bedtime. ondansetron (ZOFRAN) 4 mg tablet Take by mouth every 8 hours as needed for nausea/vomiting. aspirin, enteric coated (ECOTRIN LOW STRENGTH) 81 mg EC tablet Take 1 tablet by mouth once daily. sertraline (ZOLOFT) 100 mg tablet Take 1 tablet by mouth once daily. Eeeidxhc-Cq-Hfu-Fe- FA tab Take 1 tablet by mouth once daily. folic acid 1 mg tablet Take 4 tablets by mouth once daily. VIT 10-IRON FUM-FOLIC ORAL Take by mouth. No current facility-administer ed medications on file prior to visit. Social History Social History Tobacco Use Smoking status: Former Current packs/day: 0.00 Types: Cigarettes Start date: 2012 Quit (more content not included)... Normal [facility] Marek 07-01-2024 IEVTH Telephone (FAMPWS) ---- BERTIN MCDUFFIE ([id number]) 1995 F Date Time Provider Department 07/01/24 CARLOS BIRD During your visit today, we recorded the following information about you: Suellen Zamora LPN 07/01/2024 1:11 PM Signed Pt calling and she needs a PA done to get a BP cuff.. [facility] telling her she needs to have a PA done. Please advise pt. PRIOR AUTHORIZATION Medication for Prior Authorization: Blood pressure cuff Other formulary meds available : NO Insurance Company: [employer] phone number: [phone] Patient insurance ID number: [id number] EDMUNDO Gibson Janice, LPN 07/01/2024 1:30 PM Signed We do PAs for medicines. Any PA for supplies would be done with a DME company not pharmacy or providers staff. Reviewed with pt. [facility] does have [facility] there at their site. Pended rx to send to [facility] asking them to have [facility] complete any PA is needed or covered. Please review and send rx to the [facility] pharmacy. Ronel Ayers APRN.CNP 07/01/2024 1:47 PM Signed The following approved medication requests have been transmitted electronically. Requested Prescriptions Signed Prescriptions Disp Refills Blood Pressure Test Kit-Large (QUICK RESPONSE BP MONITOR) 1 Each 0 Si Each once daily. Authorizing Provider: CARLOS BIRD Ordering User: RONLE AYERS APRN.CNP Allergies As of Date: 07/01/2024 (No Known Allergies) Date Reviewed: 07/01/2024 Reviewed by: Rosaan Evans APRN.CNP - Fully Assessed Reason for Visit: PA required [Other] Visit Diagnosis:Abnormal uterine bleeding, [O72.1] Order(s):Blood Pressure Test Kit-Large (QUICK RESPONSE BP MONITOR)1 Each once daily.Disp: 1 EachRfl: 0 Prescriptions as of 07/01/2024 - enoxaparin sodium (LOVENOX SUBCUTANEOUS) Inject subcutaneously. - Blood Pressure Test Kit-Large (QUICK RESPONSE BP MONITOR) 1 Each once daily. - Magnesium Oxide 420 mg tab Take 1 tablet by mouth daily at bedtime. - lamoTRIgine ER (LAMICTAL XR) 100 mg 24 hr tablet Take 1 tablet by mouth daily at bedtime. Take with the 300 mg tabelt. Total dose = 400 mg/day. - lamoTRIgine ER (LAMICTAL XR) 300 mg 24 hr tablet Take 1 tablet by mouth daily at bedtime. - ondansetron (ZOFRAN) 4 mg tablet Take by mouth every 8 hours as needed for nausea/vomiting. - aspirin, enteric coated (ECOTRIN LOW STRENGTH) 81 mg EC tablet Take 1 tablet by mouth once daily. - sertraline (ZOLOFT) 100 mg tablet Take 1 tablet by mouth once daily. - Laqhrfhx-Nt-Bia-Fe- FA tab Take 1 tablet by mouth once daily. - folic acid 1 mg tablet Take 4 tablets by mouth once daily. - VIT 10-IRON FUM-FOLIC ORAL Take by mouth. 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 Localized superficial swelling, mass, or lump [*11/11/2013 11/25/2013 HIGINIO positive [R76.8] 11/25/2013 Nocturia [R35.1] 01/16/2014 Dizziness [R42] 01/16/2014 Abnormal thyroid blood test [R79.89] 01/16/2014 Attention deficit hyperactivity disorder (ADHD)*04/04/2009 Seizures (HCC) [R56.9] 09/08/2023 Nicotine use disorder, F17.2 [F17.200] 11/04/2023 Malnutrition of mild degree (HCC) [E44.1] 11/04/2023 Less than 8 weeks gestation of [Z3A.0*11/05/2023 01/12/2024 Supervision of high risk in third tri*01/12/2024 Short interval between pregnancies affecting pr*01/12/2024 History of gestational diabetes in prior pregna*01/12/2024 History of polyhydramnios [Z87.59] 01/12/2024 Factor V Leiden (HCC) [D68.51] 01/12/2024 depression [F53.0] 01/12/2024 History of labor [Z87.51] 04/01/2024 [employer] Consult Note 06/16 [O99.891] 04/04/2024 Prescriptions ordered this encounter Disp Refills Start End BLOOD PRESSURE TEST KIT-LARGE CUFF 1 Ea* 0 07/01/2024 Cmt: Please give to [facility] to complete any PA that is needed. Route: Misc Si Each once daily. Medications Discontinued During This Encounter Prescriptions - Blood Pressure Test Kit-Large (QUICK RESPONSE BP MONITOR) (Discontinued) 1 Each once daily. Encounter Status:Closed by KODY NG LPN on 07/01/24 Normal [facility] Comprehensive metabolic 2000 panelon 07-01-2024 Albumin [Mass/Vol] 3.9 g/dL Normal 3.9-4.9 [facility] Comment on above: Order Comment: Speci men Type: BLOOD SPECIMENOrdering Facility: [facility] Address: [address] [place] [address] Performed By: #### 2 4323-8, 2276-4, 36890-8 ####[facility] [id number] [place] [address] [place] ALP [Catalytic activity/Vol] 160 U/L High 34-123 [facility] Comment on above: Order Comment: Speci men Type: BLOOD SPECIMENOrdering Facility: [facility] Address: [address] [place] [address] Performed By: #### 2 4323-8, 2276-4, 11548-6 ####[facility] LABIA [id number] [place] [address] [place] ALT [Catalytic activity/Vol] 42 U/L High 7-38 [facility] Comment on above: Order Comment: Speci men Type: BLOOD SPECIMENOrdering Facility: [facility] Address: [address] [place] [address] Performed By: #### 2 4323-8, 2275-4, 93443-4 ####[facility] LABCLIA [id number] [address] [address] [place] Anion gap [Moles/Vol] 12 mmol/L Normal 8-15 [facility] Comment on above: Order Comment: Speci men Type: BLOOD SPECIMENOrdering Facility: [facility] Address: [address] [place] [address] Performed By: #### 2 4323-8, 2275-4, 79493-0 ####[facility] LABCLIA [id number] [place] [address] [place] AST [Catalytic activity/Vol] 49 U/L High 13-35 [facility] Comment on above: Order Comment: Speci men Type: BLOOD SPECIMENOrdering Facility: [facility] Address: [address] [place] [address] Performed By: #### 2 4323-8, 2275-09, 24476-4 ####[facility] LABCLIA [id number] [place] [address] [place] Bilirubin [Mass/Vol] 0.2 mg/dL Normal 0.2-1.3 [facility] Comment on above: Order Comment: Speci men Type: BLOOD SPECIMENOrdering Facility: [facility] Address: [address] [place] [address] Performed By: #### 2 4323-8, 2275-09, 82802-3 ####[facility] LABCLIA [id number] [address] [address] [place] Calcium [Mass/Vol] 9.0 mg/dL Normal 8.5-10.2 [facility] Comment on above: Order Comment: Speci men Type: BLOOD SPECIMENOrdering Facility: [facility] Address: [address] [place] [address] Performed By: #### 2 4323-8, 2275-4, 66972-6 ####[facility] LABCLIA [id number] [place] [id number] [place] Chloride [Moles/Vol] 108 mmol/L High 98-107 [facility] Comment on above: Order Comment: Speci men Type: BLOOD SPECIMENOrdering Facility: [facility] Address: [address] [place] [address] Performed By: #### 2 4323-8, 2276-4, 36039-4 ####[facility] LABIA [id number] [place] [id number] [place] CO2 [Moles/Vol] 21 mmol/L Low 22-30 [facility] Comment on above: Order Comment: Speci men Type: BLOOD SPECIMENOrdering Facility: [facility] Address: [address] [place] [address] Performed By: #### 2 4323-8, 2276-4, 60724-6 ####[facility] LABIA [id number] [place] [address] [place] Creatinine [Mass/Vol] 0.54 mg/dL Low 0.58-0.96 [facility] Comment on above: Order Comment: Speci men Type: BLOOD SPECIMENOrdering Facility: [facility] Address: [address] [place] [address] Performed By: #### 2 4323-8, 2276-4, 61330-5 ####[facility] LABIA [id number] [place] [id number] [place] Creatinine and Glomerular filtration rate.predicted panel (S/P/Bld) 130 mL/min/1.73m??? Normal >=60 [facility] Comment on above: Order Comment: Speci men Type: BLOOD SPECIMENOrdering Facility: [facility] Address: [address] [place] [address] Result Comment: Evelyne mated Glomerular Filtration Rate (eGFR) is calculated using the 2020 CKD-EPI creatinine equation. This equation utilizes serum creatinine, sex, and age as parameters. The creatinine assay has traceable calibration to isotope dilution-mass spectrometry. Refer to KDIGO guidelines for clinical interpretation. In patients with unstable renal function, e.g. those with acute kidney injury, the eGFR may not accurately reflect actual GFR. Performed By: #### 2 4323-8, 2275-4, ####[facility] LABCLIA [id number] [facility] [address] [address] [place] Glucose [Mass/Vol] 59 mg/dL Low 74-99 [facility] Comment on above: Order Comment: Miguel bell Type: BLOOD SPECIMENOrdering Facility: [facility] Address: [address] [place] [address] Result Comment: The English Diabetes Association (ADA) provides guidance for cutoff values for fasting glucose and random glucose. The ADA defines fasting as no caloric intake for at least 8 hours. Fasting plasma glucose results between 100 to 125 mg/dL indicate increased risk for diabetes (prediabetes). Fasting plasma glucose results greater than or equal to 126 mg/dL meet the criteria for diagnosis of diabetes. In the absence of unequivocal hyperglycemia, results should be confirmed by repeat testing. In a patient with classic symptoms of hyperglycemia or hyperglycemic crisis, random plasma glucose results greater than or equal to 200 mg/dL meet the criteria for diagnosis of diabetes. Reference: Standards of Medical Care in Diabetes 2016, English Diabetes Association. Diabetes Care. 2016.39(Suppl 1). Performed By: #### 2 4323-8, 2275-09, ####[facility] LABCLIA [id number] [address] [address] [place] Potassium [Moles/Vol] 3.9 mmol/L Normal 3.7-5.1 [facility] Comment on above: Order Comment: Miguel bell Type: BLOOD SPECIMENOrdering Facility: [facility] Address: [address] [place] [address] Performed By: #### 2 4323-8, 2275-4, ####[facility] LABCLIA [id number] [facility] [address] [address] [place] Protein [Mass/Vol] 6.9 g/dL Normal 6.3-8.0 [facility] Comment on above: Order Comment: Speci men Type: BLOOD SPECIMENOrdering Facility: [facility] Address: [address] [place] [address] Performed By: #### 2 4323-8, 2276-4, 31147-3 ####[facility] LABCLIA [id number] [place] [address] [place] Sodium [Moles/Vol] 141 mmol/L Normal 136-144 [facility] Comment on above: Order Comment: Speci men Type: BLOOD SPECIMENOrdering Facility: [facility] Address: [address] [place] [address] Performed By: #### 2 4323-8, 2276-4, 39270-2 ####[facility] LABCLIA [id number] [place] [address] [place] Urea nitrogen [Mass/Vol] 7 mg/dL Normal 7-21 [facility] Comment on above: Order Comment: Speci men Type: BLOOD SPECIMENOrdering Facility: [facility] Address: [address] [place] [address] Performed By: #### 2 4323-8, 2276-4, 66182-7 ####[facility] LABCLIA [id number] [place] [id number] [place] Ferritin SerPl-mCncon 2024 Ferritin [Mass/Vol] 18.3 ng/mL Normal 14.7-205.1 [facility] Comment on above: Order Comment: Speci men Type: BLOOD SPECIMENOrdering Facility: [facility] Address: [address] [place] [address] Performed By: #### 2 4323-8, 2276-4, 58393-6 ####[facility] LABCLIA [id number] [place] [id number] [place] HbA1c (Bld)on 07-01-2024 Average glucose Estimated from glycated hemoglobin (Bld) [Mass/Vol] 103 mg/dL Normal [facility] Comment on above: Order Comment: Miguel men Type: BLOOD SPECIMENOrdering Facility: [facility] Address: [address] [place] [address] Result Comment: eAG: (Estimated average glucose) is a calculated value from HgbA1c and is instruments sales representative of the average blood glucose level in the last 2-3 month period. Performed By: #### 5 5454-3 ####[facility] LABCLIA [id number] [place] [address] [place] HbA1c (Bld) [Mass fraction] 5.2 % Normal 4.3-5.6 [facility] Comment on above: Order Comment: Miguel bell Type: BLOOD SPECIMENOrdering Facility: [facility] Address: [address] [place] [address] Result Comment: Amer [place] Diabetes Association guidelines indicate that patients with HgbA1c in the range 5.7-6.4% are at increased risk for development of diabetes, and intervention by lifestyle modification may be beneficial. HgbA1c greater or equal to 6.5% is considered diagnostic of diabetes. Performed By: #### 5 5454-3 ####[facility] LABCLIA [id number] [place] [address] [place] Iron and Iron binding capaci ty panelon 07-01-2024 Iron [Mass/Vol] 33 ug/dL Low 41-186 [facility] Comment on above: Order Comment: Miguel men Type: BLOOD SPECIMENOrdering Facility: [facility] Address: [address] [place] [address] Performed By: #### 2 4323-8, 2276-4, 41984-6 ####[facility] LABCLIA [id number] [place] [address] [place] Iron binding capacity [Mass/Vol] >533 High 232-386 [facility] Comment on above: Order Comment: Tuyeti men Type: BLOOD SPECIMENOrdering Facility: [facility] Address: [address] [place] [address] Performed By: #### 2 4323-8, 2276-4, 66457-8 ####[facility] LABCLIA [id number] [address] [address] [place] Iron/TIBC [Molar ratio] <6.2 Low 15.0-57.0 [facility] Comment on above: Order Comment: Speci men Type: BLOOD SPECIMENOrdering Facility: [facility] Address: [address] [place] [address] Performed By: #### 2 4323-8, 2276-4, 31279-0 ####[facility] LABCLIA [id number] [address] [address] [place] UA DIP, URINE (POC)on 2024 BILIRUBIN UA (POCT) Negative Negative [facility] CLARITY UA (POCT) Clear [facility] COLOR UA (POCT) Yellow [facility] GLUCOSE UA (POCT) Negative Negative mg/dL [facility] Hemoglobin Ql (U) Small Abnormal Negative [facility] Interpretation and review of laboratory results Abnormal [facility] KETONE UA (POCT) Negative Negative mg/dL [facility] LEUKOCYTES UA (POCT) Trace Abnormal Negative [facility] NITRITE UA (POCT) Negative Negative [facility] PH UA (POCT) 7.5 4.5 - 8.0 [facility] Protein Ql (U) Negative Negative mg/dL [facility] SPECIFIC GRAVITY UA (POCT) 1.020 1.005 - 1.030 [facility] UROBILINOGEN UA (POCT) 0.2 Normal E.U./dL [facility] Location:[address], [place], [place], [id number] [place] [address] POINT OF CARE [facility] lamoTRIgine SerPl-mCncon lamoTRIgine [Mass/Vol] 1.8 ug/mL Normal 1.0-13.0 [facility] Comment on above: Order Comment: Speci men Type: BLOOD SPECIMENOrdering Facility: [facility] Address: [address], [place] [id number] Result Comment: This test was developed, and its performance characteristics determined by the [facility] Department of Pathology and Laboratory Medicine. It has not been cleared or approved by the FDA. The [facility] Department of Pathology and Laboratory Medicine is regulated under CLIA as qualified to perform high-complexity testing. This test is used for clinical purposes. It should not be regarded as investigational or for research. Performed By: #### 6 948-4 ####[facility] LABCLIA [id number] [facility] [id number] [address] [place] CBC W/Diff, Automatedon 06-15 Absolute Lymph 2.17 X10 3/uL Normal 0.83-4.51 [facility] Comment on above: Performed By: #### Clari ROTH, L100.0100 #### [facility] [address] [place], [address] Absolute Neut 7.1 X10 3/uL Normal 2.0-7.7 [facility] Comment on above: Performed By: #### Clari ROTH, L100.0100 #### [facility] [address] [place], [address] Basophils/100 WBC (Bld) 0.2 % Normal 0-1 [facility] Comment on above: Performed By: #### Clari ROTH, L100.0100 #### [facility] [address] [place], [address] Eosinophils/100 WBC (Bld) 0.3 % Normal 0-5 [facility] Comment on above: Performed By: #### Clari ROTH, L100.0100 #### [facility] [address] [place], [address] Erythrocyte distribution width (RBC) [Ratio] 14.2 % Normal 11.6-14.6 [facility] Comment on above: Performed By: #### Clari ROTH, L100.0100 #### [facility] [address] [place] [place], [address] Hematocrit (Bld) [Volume fraction] 38.3 % Normal 37-47 [facility] Comment on above: Performed By: #### Clari ROTH, L100.0100 #### [facility] [address] [place], [address] Hemoglobin (Bld) [Mass/Vol] 12.5 g/dL Normal 12.0-15.0 [facility] Comment on above: Performed By: #### Clari ROTH, L100.0100 #### [facility] [address] [place], [address] IG% 0.400 Normal 0.0-0.9 [facility] Comment on above: Result Comment: IG% - Immature Granulocytes (promyelocytes, myelocytes and metamyelocytes) > 1% indicates that a LEFT SHIFT is Present. Performed By: #### Clari ROTH, L100.0100 #### [facility] [address] [place], [address] Lymphocytes/100 WBC (Bld) 20.6 % Normal 19-41 [facility] Comment on above: Performed By: #### Clari ROTH, L100.0100 #### [facility] [address] [place], [address] MCH (RBC) [Entitic mass] 26.5 pg Low 27.0-32.0 [facility] Comment on above: Performed By: #### Clari ROTH, L100.0100 #### [facility] [address] [place], [address] MCHC (RBC) [Mass/Vol] 32.6 g/dL Normal 32-36 [facility] Comment on above: Performed By: #### Clari ROTH, L100.0100 #### [facility] [address] [place], [address] MCV (RBC) [Entitic vol] 81.3 fL Normal 81-99 [facility] Comment on above: Performed By: #### Clari ROTH, L100.0100 #### [facility] [address] [place], [address] Monocytes/100 WBC (Bld) 11.6 % High 0-10 [facility] Comment on above: Performed By: #### Clari ROTH, L100.0100 #### [facility] [address] [place], [address] Neutrophils/100 WBC (Bld) 66.9 % Normal 47-70 [facility] Comment on above: Performed By: #### Clari ROTH, L100.0100 #### [facility] [address] [place], [address] Nucleated RBC (Bld) [#/Vol] 0 10*3/uL Normal 0-5 [facility] Comment on above: Performed By: #### Clari ROTH, L100.0100 #### [facility] [address] [place], [address] Platelet mean volume (Bld) [Entitic vol] 11.0 fL Normal 6.2-12.0 [facility] Comment on above: Performed By: #### Clari ROTH, L100.0100 #### [facility] [address] [place], [address] Platelets (Bld) [#/Vol] 322 10*3/uL Normal 150-450 [facility] Comment on above: Performed By: #### Clari ROTH, L100.0100 #### [facility] [address] [place], [address] RBC (Bld) [#/Vol] 4.71 10*6/uL Normal 4.2-5.4 [facility] Comment on above: Performed By: #### Clari ROTH, L100.0100 #### [facility] [address] [place], [address] RDW SD 41.2 fl Normal 35.1-43.9 [facility] Comment on above: Performed By: #### B TS, L100.0100 #### [facility] [address] [place], [address] WBC (Bld) [#/Vol] 10.6 10*3/uL Normal 4.4-11.0 [facility] Comment on above: Performed By: #### B TS, L100.0100 #### [facility] [address] [place], [address] H AND P Exam - OB/GYNon 06-15 H&P Exam - IMMIGRATION CASE MANAGER [facility] Medical Records Department [address] [place] [address] H P Exam - IMMIGRATION CASE MANAGER 06/27/24 0350 MR#: [id number] Acct: [id number] Name: BERTIN MCDUFFIE Rep #: [id number] : 1995 28 From: Danyelle Gutierrez CNM PCP: ROSANA EVANS BLAST FURNACE TENDER-C Status:ADM IN Location: [id number] HPI - General General Date of Admission: 06/27/24 HPI Narrative BERTIN MCDUFFIE, is a 28 F who presents in spontaneous onset of labor. Maternal Data Information JANE Calculator Estimated Delivery Date Method Current WG Current Estimate 07/09/24 Manual 38w 2d PFSH PFSH Medical History (Updated 06/27/24 @ 03:53 by Danyelle Gutierrez CNM) History of pre-term labor Infertility Trauma Blood clotting disorder depression Psychiatric disorder Seizures Anxiety Depression Factor V Leiden Seizure disorder Gallstones Home Medications ???Medication ???Instructions ???Recorded ???Last Taken ???Type buspirone 15 mg tablet 15 mg PO BID 02/12/22 Unknown History lurasidone 80 mg tablet (Latuda) 80 mg PO DAILY 02/12/22 Unknown History ondansetron 4 mg disintegrating 4 mg PO Q8H PRN PRN Nausea #10 tabs 03/03/24 Unknown Rx tablet aspirin 81 mg tablet,delayed 81 mg PO DAILY 06/27/24 Unknown History release cyclobenzaprine 10 mg tablet 10 mg PO TID PRN PRN muscle spasm 06/27/24 Unknown History folic acid 1 mg tablet 4 mg PO DAILY 06/27/24 Unknown History lamotrigine 300 mg tablet,extended 300 mg PO 06/27/24 Unknown History release 24 hr lamotrigine 50 mg tablet,extended 50 mg PO DAILY 06/27/24 Unknown History release 24 hr vits no.130-ferrous fum 1 tab PO DAILY 06/27/24 Unknown History 27 mg iron-folic acid 800 mcg tablet ( Vitamin) sertraline 100 mg tablet 100 mg PO DAILY 06/27/24 Unknown History Allergy/AdvReac Type Severity Reaction Status Date / Time No Known Allergies Allergy Verified 06/27/24 00:44 Social History (Updated 03/03/24 @ 15:[address] Gildardo Dunlap, DO) Smoking Status: Current every day smoker tobacco type: cigarettes substance use type: marijuana NST FHR Rate Baby A Baseline: 140 Variability:: Moderate Accelerations:: 15 x 15 Decelerations:: None NST Reactive:: Yes FHR Category:: Category I Uterine Activity:: TOCO reading every 2-3 minutes ROS Eyes Eyes: Denies blurry vision, change in vision or spots in vision ENT HEENT: Denies dizziness or headache(s) Cardiovascular Cardiovascular: Denies abdominal pain, chest pain or dyspnea Respiratory/Chest Respiratory/Chest: Denies cough, dyspnea, shortness of breath at rest or shortness of breath with exertion Gastrointestinal Gastrointestinal: Denies abdominal pain, diarrhea or vomiting Genitourinary Genitourinary: Denies change in urinary stream, difficulty urinating or dysuria Musculoskeletal Musculoskeletal: Reports none Integumentary Integumentary: Denies rash Neurologic Neurologic: Denies dizziness, headache(s), memory loss or weakness Psychiatric Psychiatric: Reports none Vital Signs Vital Signs Vital Signs: 06/26/24 23:58 06/26/24 23:58 06/27/24 00:00 Temperature Temperature Source Pulse Rate 93 Respiratory Rate Blood Pressure 123/90 H BP Systolic 123 BP Diastolic 90 Pulse Ox 99 06/27/24 00:00 06/27/24 00:00 06/27/24 00:00 Temperature Temperature Source Temporal Pulse Rate 88 Respiratory Rate 18 Blood Pressure BP Systolic BP Diastolic Pulse Ox 06/27/24 00:00 06/27/24 03:44 06/27/24 03:44 Temperature 97.9 F Temperature Source Pulse Rate 83 Respiratory Rate Blood Pressure 126/73 H BP Systolic 126 BP Diastolic 73 Pulse Ox 06/27/24 03:44 06/27/24 03:44 06/27/24 03:44 Temperature Temperature Source Pulse Rate 89 Respiratory Rate Blood Pressure BP Systolic BP Diastolic Pulse Ox 91 99 Weight Weight: 177 lb 6.4 oz Body Mass Index (BMI) 29.5 Physical Exam Const alert, oriented x3 and no apparent distress General Appearance: cooperative Orientation / Consciousness: awake Exam Limitations: no limitations HEENT normocephalic Head and Scalp: normal to inspection Eyes General Eye: normal appearance of both eyes Neck full ROM and no lymphadenopathy Lymph Lymphatic: no lymphadenopathy noted Chest inspection of chest normal Resp normal respiratory effort, normal air movement and clear to auscultation bilaterally Effort and Inspection: able to speak in complete sentences and symmetric chest movement Cardio regular rate and regular rhythm GI normal to inspection, nondistended, normoactive bowel sounds Manual OB Exam: presentation cephalic Back/Spine normal ROM Extrem (more content not included)... Normal [facility] L509.8000on 06-27-2024 Syphilis Abs Non-Reactive Normal [facility] Comment on above: Performed By: #### L 509.8000 #### [facility] [address] [place], [address] MR/OB.VAGDELIon 06-27-2024 [facility] Medical Records Department [address] [place] [address] OB Vaginal Delivery 06/27/24 0355 MR#: [id number] Acct: [id number] Name: BERTIN MCDUFFIE Rep #: [id number] : 1995 28 From: Danyelle Gutierrez CNM PCP: ROSANA EVANS BLAST FURNACE TENDER-C Status:ADM IN Location: [id number] Assessment Plan (1) (spontaneous vaginal delivery): (2) Precipitous delivery: (3) Anxiety: (4) Depression: (5) Factor V Leiden: (6) History of marijuana use: Maternal Data Information JANE Calculator Estimated Delivery Date Method Current WG Current Estimate 07/09/24 Manual 38w 2d Vaginal Delivery Maternal Presentation Maternal Presentation: Active Labor Vaginal Delivery Information Procedure Performed: Spontaneous Vaginal Delivery (precipitous delivery) Date of Procedure: 06/27/24 Pre-Procedure Diagnosis: Term gestation, Spontaneous onset of labor, SROM Post-Procedure Diagnosis: , Live male infant Type of anesthesia: None Estimated Blood Loss: 250 Time of Delivery: 03:26 Findings Description of procedure: Patient quickly progressed to complete dilation. Called to patient's room while infant was delivering in bed by nursing staff. Patient in hands and knees position. Vigorous male was delivered atraumatically. Pitocin IM given for active management of the third stage of labor. 3 vessel cord clamped and cut after delay and infant placed immediately skin to skin with patient. Placenta delivered spontaneously and intact. Cord gasses obtained. After inspection, vagina and perineum are intact. Vaginal sweep performed. Fundus is firm 2 below U and bleeding is hemostatic. Sponge and sharps counts correct. Patient and bonding well at this time. Dr. King notified of delivery. Routine post orders placed. Presentation: Vertex Amniotic Membrane Rupture Type: Spontaneous Amniotic Fluid Description: Lightly stained meconium Placental Delivery Description: Spontaneous Placenta Disposition: [facility] Specimen collected: No Cord Vessel Description: 3 Vessels Cord Entanglement: None Nuchal Cord Compression: Without compression Cord Gases: ABG and VBG Infant A Gender: Male (1 minute): 8 (5 minute): 9 Delayed Cord Clamping: Yes Mold Technician director physical therapy: No Post Vaginal Deli Medications given after delivery: IV Pitocin and IM Pitocin Episiotomy Description: None Laceration: None Complication Complications: No 06/27/24 0401 Cosigner Signature (if applicable): CC: JAUN Gutierrez; ROSANA EVANS BLAST FURNACE TENDER-C Signed Normal [facility] Type AND Screenon 06-27-2024 Ab SCREEN GEL Negative Normal [facility] Comment on above: Order Comment: Labor Performed By: #### B , L100.0100 #### [facility] [address] [place], [address] URINE OB DIP B/Oon 5 Glucose Ql (U) Negative Neg mg/dL [facility] Interpretation and review of laboratory results Normal [facility] Protein.monoclonal (U) [Mass/Vol] Negative Neg mg/dL [facility] ROUTINE, GROUP B ST REP PCRon 06-17-2024 ROUTINE, GROUP B STREP PCR GROUP B STREP PCR: Negative for Group B Streptococcus by PCR. Normal [facility] Comment on above: Performed By: #### G BPCR ####[facility] LABCLIA [id number] [address] [facility] URINE OB DIP B/Oon 5 Glucose Ql (U) Negative Neg mg/dL [facility] Interpretation and review of laboratory results Normal [facility] Protein.monoclonal (U) [Mass/Vol] Negative Neg mg/dL [facility] NURSING PROGon 06-16-2024 NURSING PROG HNO ID: [id number] Author: ALVARADO HAMMOND RN Service: Nursing Author Type: Registered Nurse Type: Nursing Progress Note Filed: 06/16/2024 19:08 Note Text: ---- Summary: All Copy Products ---- All Copy Products 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 Note Hospital Name: [facility] Completed by: Alvarado Hammond RN Date: June 16, 2024 [employer] Copy Products Resource Time: 3 hours: Primary Referral Code: E Phone consult Bertin Mcduffie [phone] Preferred Name: Bertin COY Provider: Sirisha Gomes Estimated Date of Delivery: 07/09/24 Designated Support People: Beau (), Bertin would also like her 8 year old daughter Manda to be present as her second visitor Labor Plan: Bertin is hoping for an unmedicated vaginal at either [facility] (if an IOL) or [place] (if spontaneous labor). She plans to breastfeed baby boy Shlomo. She is interested in [facility] if possible. Primary Trigger Themes: Control or loss of control Primary Triggers: Hospital environment Pain medication tradeoffs Labor AND Strategies: Bertin is hoping for a low intervention unmedicated . She is interested in using the tub or shower as well as nitrous oxide. She has had epidural with her other 3 children's births. She made it to 6-7 cm with her first, but then needed an epidural due to pitocin augmentation. Her epidurals have all provided excellent pain relief, but she has experienced pain during placement. Bertin does have a history of a seizure disorder which she reports has been stable on medication. She can sense when a seizure is about to happen and states that cold help (ice packs, cold wash cloths etc.). Other Patient Preferences: Bertin is interested in [facility] and care with CNMs if possible. She would like delayed cord clamping of 1-2 minutes if possible. Normal [facility] URINE OB DIP B/Oon Glucose Ql (U) Negative Neg mg/dL [facility] Protein.monoclonal (U) [Mass/Vol] Negative Neg mg/dL [facility] Examination level ultrasound on 05-20-2024 [facility] Radiology Study observation (narrative) [facility] Marek 05-09-2024 CNPN Telephone (OBGYWM) ---- BERTIN MCDUFFIE ([id number]) 1995 F Date Time Provider Department 05/09/24 BELGICA THOMAS OBKWASIWBeulah During your visit today, we recorded the following information about you: Arlene Mccollum 05/09/2024 1:58 PM Signed Patient called to cancel today's appt. Declined to reschedule said she would be seen at next appt 05/20 Liliya Soriano RN 05/09/2024 2:44 PM Signed STACY. See below. TRYA Sherman Jessica, APRN.CNM 05/09/2024 3:14 PM Signed Belgica Musa APRN.CNM Allergies As of Date: 05/09/2024 (No Known Allergies) Date Reviewed: 04/26/2024 Reviewed by: Rowan Macias MA - Fully Assessed Prescriptions as of 05/09/2024 - lamoTRIgine ER (LAMICTAL XR) 100 mg 24 hr tablet Take 1 tablet by mouth daily at bedtime. Take with the 300 mg tabelt. Total dose = 400 mg/day. - lamoTRIgine ER (LAMICTAL XR) 300 mg 24 hr tablet Take 1 tablet by mouth daily at bedtime. - ondansetron (ZOFRAN) 4 mg tablet Take by mouth every 8 hours as needed for nausea/vomiting. - aspirin, enteric coated (ECOTRIN LOW STRENGTH) 81 mg EC tablet Take 1 tablet by mouth once daily. - sertraline (ZOLOFT) 100 mg tablet Take 1 tablet by mouth once daily. - Ncgqsapl-Vf-Gzo-Fe- FA tab Take 1 tablet by mouth once daily. - folic acid 1 mg tablet Take 4 tablets by mouth once daily. - VIT 10-IRON FUM-FOLIC ORAL Take by mouth. 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 Localized superficial swelling, mass, or lump [*11/11/2013 11/25/2013 HIGINIO positive [R76.8] 11/25/2013 Nocturia [R35.1] 01/16/2014 Dizziness [R42] 01/16/2014 Abnormal thyroid blood test [R79.89] 01/16/2014 Attention deficit hyperactivity disorder (ADHD)*04/04/2009 Seizures (HCC) [R56.9] 09/08/2023 Nicotine use disorder, F17.2 [F17.200] 11/04/2023 Malnutrition of mild degree (HCC) [E44.1] 11/04/2023 Less than 8 weeks gestation of [Z3A.0*11/05/2023 01/12/2024 Encounter for supervision of normal i*01/12/2024 Short interval between pregnancies affecting pr*01/12/2024 History of gestational diabetes in prior pregna*01/12/2024 History of polyhydramnios [Z87.59] 01/12/2024 Factor V Leiden (HCC) [D68.51] 01/12/2024 depression [F53.0] 01/12/2024 History of labor [Z87.51] 04/01/2024 [facility] Referred [O99.891] 04/04/2024 Encounter Status:Closed by LILIYA SORIANO on 05/09/24 [facility] Marek 04-27-2024 CNPN Telephone (OBGYBD) ---- BERTIN MCDUFFIE ([id number]) 1995 F Date Time Provider Department 04/27/24 SIRISHA FIELDS During your visit today, we recorded the following information about you: Sirisha Fields RN 04/27/2024 8:56 AM Signed 3rd risk assessment form submitted 04/27/2024. Sirisha Fields RN Allergies As of Date: 04/27/2024 (No Known Allergies) Date Reviewed: 04/26/2024 Reviewed by: Rowan Macias MA - Fully Assessed Reason for Visit: 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 - Other [[id number]] Cmt: PRAF Prescriptions as of 04/27/2024 - lamoTRIgine ER (LAMICTAL XR) 100 mg 24 hr tablet Take 1 tablet by mouth daily at bedtime. Take with the 300 mg tabelt. Total dose = 400 mg/day. - lamoTRIgine ER (LAMICTAL XR) 300 mg 24 hr tablet Take 1 tablet by mouth daily at bedtime. - ondansetron (ZOFRAN) 4 mg tablet Take by mouth every 8 hours as needed for nausea/vomiting. - aspirin, enteric coated (ECOTRIN LOW STRENGTH) 81 mg EC tablet Take 1 tablet by mouth once daily. - sertraline (ZOLOFT) 100 mg tablet Take 1 tablet by mouth once daily. - Ltrhruty-Kx-Utr-Fe- FA tab Take 1 tablet by mouth once daily. - folic acid 1 mg tablet Take 4 tablets by mouth once daily. - VIT 10-IRON FUM-FOLIC ORAL Take by mouth. 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] 11/11/2013 Localized superficial swelling, mass, or lump [*11/11/2013 11/25/2013 HIGINIO positive [R76.8] 11/25/2013 Nocturia [R35.1] 01/16/2014 Dizziness [R42] 01/16/2014 Abnormal thyroid blood test [R79.89] 01/16/2014 Attention deficit hyperactivity disorder (ADHD)*04/04/2009 Seizures (HCC) [R56.9] 09/08/2023 Nicotine use disorder, F17.2 [F17.200] 11/04/2023 Malnutrition of mild degree (HCC) [E44.1] 11/04/2023 Less than 8 weeks gestation of [Z3A.0*11/05/2023 01/12/2024 Encounter for supervision of normal i*01/12/2024 Short interval between pregnancies affecting pr*01/12/2024 History of gestational diabetes in prior pregna*01/12/2024 History of polyhydramnios [Z87.59] 01/12/2024 Factor V Leiden (HCC) [D68.51] 01/12/2024 depression [F53.0] 01/12/2024 History of labor [Z87.51] 04/01/2024 [facility] Referred [O99.891] 04/04/2024 Encounter Status:Closed by SIRISHA FIELDS on 04/27/24 Normal [facility] CBC panel Auto (Bld)on 04-26 Erythrocyte distribution width (RBC) [Ratio] 13.8 % Normal 11.5-15.0 [facility] Comment on above: Order Comment: Speci men Type: BLOOD SPECIMENOrdering Facility: [facility] Address: [address] [place] [address] Performed By: #### 5 8410-2 ####[facility] LABIA [id number] [place] [address] [place] Hematocrit (Bld) [Volume fraction] 35.0 % Low 36.0-46.0 [facility] Comment on above: Order Comment: Speci men Type: BLOOD SPECIMENOrdering Facility: [facility] Address: [address] [place] [address] Performed By: #### 5 8410-2 ####[facility] LABIA [id number] [place] [address] [place] Hemoglobin (Bld) [Mass/Vol] 11.0 g/dL Low 11.5-15.5 [facility] Comment on above: Order Comment: Speci men Type: BLOOD SPECIMENOrdering Facility: [facility] Address: [address] [place] [address] Performed By: #### 5 8410-2 ####[facility] LABIA [id number] [place] [address] [place] MCH (RBC) [Entitic mass] 28.2 pg Normal 26.0-34.0 [facility] Comment on above: Order Comment: Speci men Type: BLOOD SPECIMENOrdering Facility: [facility] Address: [address] [place] [address] Performed By: #### 5 8410-2 ####[facility] LABIA [id number] [place] [address] [place] MCHC (RBC) [Mass/Vol] 31.4 g/dL Normal 30.5-36.0 [facility] Comment on above: Order Comment: Speci men Type: BLOOD SPECIMENOrdering Facility: [facility] Address: [address] [place] [address] Performed By: #### 5 8410-2 ####[facility] LABCLIA [id number] [place] [address] [place] MCV (RBC) [Entitic vol] 89.7 fL Normal 80.0-100.0 [facility] Comment on above: Order Comment: Speci men Type: BLOOD SPECIMENOrdering Facility: [facility] Address: [address] [place] [address] Performed By: #### 5 8410-2 ####[facility] LABCLIA [id number] [place] [address] [place] Nucleated RBC (Bld) [#/Vol] 10*3/uL Normal <0.01 [facility] Comment on above: Order Comment: Speci men Type: BLOOD SPECIMENOrdering Facility: [facility] Address: [address] [place] [address] Performed By: #### 5 8410-2 ####[facility] LABCLIA [id number] [place] [address] [place] Platelet mean volume (Bld) [Entitic vol] 10.9 fL Normal 9.0-12.7 [facility] Comment on above: Order Comment: Speci men Type: BLOOD SPECIMENOrdering Facility: [facility] Address: [address] [place] [address] Performed By: #### 5 8410-2 ####[facility] LABCLIA [id number] [place] [address] [place] Platelets (Bld) [#/Vol] 244 10*3/uL Normal 150-400 [facility] Comment on above: Order Comment: Speci men Type: BLOOD SPECIMENOrdering Facility: [facility] Address: [address] [place] [address] Performed By: #### 5 8410-2 ####[facility] LABCLIA [id number] [place] [address] [place] RBC (Bld) [#/Vol] 3.90 10*6/uL Normal 3.90-5.20 [facility] Comment on above: Order Comment: Speci men Type: BLOOD SPECIMENOrdering Facility: [facility] Address: [address] [place] [address] Performed By: #### 5 8410-2 ####[facility] LABCLIA [id number] [place] [address] [place] WBC (Bld) [#/Vol] 9.46 10*3/uL Normal 3.70-11.00 [facility] Comment on above: Order Comment: Speci men Type: BLOOD SPECIMENOrdering Facility: [facility] Address: [address] [place] [address] Performed By: #### 5 8410-2 ####[facility] LABCLIA [id number] [place] [address] [place] GESTATIONAL GLUCOSE SCREEN, 1-HOUR, 50 GRAM, NON-FASTINGon 04-26-2024 Glucose [Mass/Vol] 88 mg/dL Normal 74-134 [facility] Comment on above: Order Comment: Speci men Type: BLOOD SPECIMENOrdering Facility: [facility] Address: [address] [place] [address] Result Comment: [facility] Congress of Obstetricians and Gynecologists (Anthony/Kalpesh) guidelines state a gestational diabetes mellitus positive screen is made, in women not previously diagnosed with overt diabetes, when the 1 hr plasma glucose level is equal to or above 140 mg/dL. The [facility] [place] recommends a 135 mg/dL cutoff. Performed By: #### G LTGST ####[facility] LABCLIA [id number] [place] [address] [place] Reagin and Treponema pallidu m IgG and IgM [Interp]on 04-26-2024 T. pallidum IgG+IgM IA Ql (S) Non-Reactive Normal Nonreactive [facility] Comment on above: Order Comment: Speci men Type: BLOOD SPECIMENOrdering Facility: [facility] Address: [address] [place] [address] Performed By: #### 7 3752-8 ####[facility] LABIA [id number] [place] [address] [place] Reagin+T pallidum IgG+IgM Se rPl-Impon 04-26-2024 Reagin and Treponema pallidum IgG and IgM [Interp] Cannot exclude recent Treponemal infection if specimen collected within 7-10 days after appearance of suspect lesions or 2-3 weeks after an exposure. Clinical correlation is required. Normal [facility] Comment on above: Order Comment: Speci men Type: BLOOD SPECIMENOrdering Facility: [facility] Address: [address] [place] [address] Performed By: #### 7 3752-8 ####[facility] LABIA [id number] [address] [place] lamoTRIgine [facility] lamoTRIgine [Mass/Vol] 0.9 ug/mL Low 1.0-13.0 [facility] Comment on above: Order Comment: Speci men Type: BLOOD SPECIMENOrdering Facility: [facility] Address: [address] [place] [address] Result Comment: This test was developed, and its performance characteristics determined by the [facility] Department of Pathology and Laboratory Medicine. It has not been cleared or approved by the FDA. The [facility] Department of Pathology and Laboratory Medicine is regulated under CLIA as qualified to perform high-complexity testing. This test is used for clinical purposes. It should not be regarded as investigational or for research. Performed By: #### 6 948-4 ####[facility] LABCLIA [id number] [place] [id number] [place] CNCOon 03-28-2024 CNCO Letter Text Normal [facility] CNOVon 03-14-2024 CNOV Office Visit ([facility]) ---- BERTIN MCDUFFIE ([id number]) 1995 F Date Time Provider Department 03/14/24 11:00 AM OZ TERRAZAS During your visit today, we recorded the following information about you: Pulse Blood pressure Weight Height 78/minute 90/64 72.3 kg 1.638 m Oz Terrazas MD 03/14/2024 11:16 AM Signed [facility] Patient Name: Bertin Mcduffie Date of : 1995 ESTABLISHED EPILEPSY CLINIC NOTE 03/14/2024 11:00 AM Reason for Visit: Follow Up (No changes. ) Clinical Summary: Ms. Mcduffie is a 28 year old right-handed female seen in [facility]. 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 During admission, her Lamotrigine was held at outset for provocation. Baseline EEG displayed typical awake/sleep structures. Interictal EEG showed right parietal-occipital (O2>P8) epileptiform discharges. No events and/or seizures were captured. Her observation was cut short due to family emergency. Prior to leaving; she resumed her 300 mg of daily Lamotrigine unchanged. Standard precautions were reiterated before her discharge home 09/08/23 in stable condition with as convenient follow-up instructions via Dr. Terrazas for ASM optimization. 11/03/2023 - 11/05/2023 - EMU - She was admitted to the epilepsy monitoring unit from 11/03/2023-11/05/2023 for diagnosis of events. Antiseizure medication was discontinued upon admission. No typical episodes were captured during this two-day video EEG, resulting in an inconclusive evaluation. The patient requested early discharge to return home with the children. EEG showed an awake background of 10-11 Hz posterior dominant rhythm and observed normal sleep patterns. No interictal findings were identified. Prior to discharge, Lamotrigine ER 300 mg daily was restarted without changes. Seizure safety precautions were reiterated, and she was discharged home in stable condition. She will follow up with Dr. Terrazas in 6 months after discharge. She will check Lamotrigine levels monthly during and start Folic acid 4 mg once daily. She denied seizures. She is taking LTG ER 350 in the morning. However, she is now 23 weeks and has morning sickness and has been unable to keep her medications down. She denied any loretta TB. She reports blisters on her tongue but no blood. No UI. Total # of Current Anti-seizure Medications: 1 Side Effects to Current Anti-seizure Medications: none Seizure Frequency at First Visit: 1 per year Longest Seizure-free Interval: 2 years Number of seizure types: 1 Hx of generalized tonic-clonic seizures: No Tongue bite: No Urine or Bowel Incontinence: No Triggers: stress, missing medication Postictal Deficits: No Memory complaints: none Status Epilepticus or clusters: No Postictal Agitation: No Significant Injuries from Seizures: concussion at age 18 years Seizure-related driving accidents: No Driving: No Lives Alone: No ED Visits in Last 3 Months: No Hospitalizations in Last 3 Months: No Highest Level of Education: High school graduate (includes GED) CURRENT OUTPATIENT ANTISEIZURE MEDICATIONS (as of the start of the encounter) lamoTRIgine ER (LAMICTAL XR) 50 mg 24 hr tablet Take 1 tablet by mouth once daily. Take with the 300 mg tabelt. Total dose = 350 mg/day. lamoTRIgine ER (LAMICTAL XR) 300 mg 24 hr tablet Take 1 tablet by mouth every morning. Prior Anti-seizure Therapies: Trial Adequacy: Max Daily Dose Achieved: Side Effects: Effectiveness: Comments: Ethosuximide Lamotrigine ER/XR Levetiracetam Phenobarbital Comorbidities: Minor: Anxiety, Depression Episode Description: SEIZURE TYPE 1: seizure Onset: 17 year old Aura: yes nausea, hot/cold feeling, dizziness, stomach turning, and vision becomes hazy. She cannot hear and her vision will turn white before passing out Description: Her has witnessed one of them. She will look like a zombie staring. She will fall and is motionless. No convulsion. She is unresponsive when stimulated. It will last 5-10 minutes. She has no recall afterward. No TB or UI. Loss of awareness: Duration: Frequency: Last occurred: yes longer than 10 minutes March 11 2023 Patient Entered Data: EPILEPSY SCORE 01/20/2024 7:46 PM 09/12/2023 10:47 PM 09/12/2023 10:38 PM First answer obtained - 09/16/2022 11:07 AM PHQ-9 SCORE 18 [Moderately Severe Depression] - 23 [Severe Depression] 20 [Severe Depression] SARMAD 2 SCORE - - - - SARMAD 7 SCORE - 18 [Severe Anxiety Disorder] - - QOLIE-10 (more content not included)... Normal [facility] CBC W/Diff, Automatedon 09- Absolute Lymph 1.21 X10 3/uL Normal 0.83-4.51 [facility] Comment on above: Performed By: #### L 500.4050, L700.6800, L100.0100 #### [facility] [address] [place], [address] Absolute Neut 5.4 X10 3/uL Normal 2.0-7.7 [facility] Comment on above: Performed By: #### L 500.4050, L700.6800, L100.0100 #### [facility] [address] [place], [address] Basophils/100 WBC (Bld) 0.5 % Normal 0-1 [facility] Comment on above: Performed By: #### L 500.4050, L700.6800, L100.0100 #### [facility] [address] [place], [address] Eosinophils/100 WBC (Bld) 0.5 % Normal 0-5 [facility] Comment on above: Performed By: #### L 500.4050, L700.6800, L100.0100 #### [facility] [address] [place], [address] Erythrocyte distribution width (RBC) [Ratio] 14.0 % Normal 11.6-14.6 [facility] Comment on above: Performed By: #### L 500.4050, L700.6800, L100.0100 #### [facility] [address] [place], [address] Hematocrit (Bld) [Volume fraction] 35.4 % Low 37-47 [facility] Comment on above: Performed By: #### L 500.4050, L700.6800, L100.0100 #### [facility] [address] [place], [address] Hemoglobin (Bld) [Mass/Vol] 11.7 g/dL Low 12.0-15.0 [facility] Comment on above: Performed By: #### L 500.4050, L700.6800, L100.0100 #### [facility] [address] [place], [address] IG% 0.700 Normal 0.0-0.9 [facility] Comment on above: Result Comment: IG% - Immature Granulocytes (promyelocytes, myelocytes and metamyelocytes) > 1% indicates that a LEFT SHIFT is Present. Performed By: #### L 500.4050, L700.6800, L100.0100 #### [facility] [address] [place], [address] Lymphocytes/100 WBC (Bld) 16.5 % Low 19-41 [facility] Comment on above: Performed By: #### L 500.4050, L700.6800, L100.0100 #### [facility] [address] [place], [address] MCH (RBC) [Entitic mass] 28.6 pg Normal 27.0-32.0 [facility] Comment on above: Performed By: #### L 500.4050, L700.6800, L100.0100 #### [facility] [address] [place], [address] MCHC (RBC) [Mass/Vol] 33.1 g/dL Normal 32-36 [facility] Comment on above: Performed By: #### L 500.4050, L700.6800, L100.0100 #### [facility] [address] [place], [address] MCV (RBC) [Entitic vol] 86.6 fL Normal 81-99 [facility] Comment on above: Performed By: #### L 500.4050, L700.6800, L100.0100 #### [facility] [address] [place], [address] Monocytes/100 WBC (Bld) 8.4 % Normal 0-10 [facility] Comment on above: Performed By: #### L 500.4050, L700.6800, L100.0100 #### [facility] [address] [place], [address] Neutrophils/100 WBC (Bld) 73.4 % High 47-70 [facility] Comment on above: Performed By: #### L 500.4050, L700.6800, L100.0100 #### [facility] [address] [place], [address] Nucleated RBC (Bld) [#/Vol] 0 10*3/uL Normal 0-5 [facility] Comment on above: Performed By: #### L 500.4050, L700.6800, L100.0100 #### [facility] [address] [place], [address] Platelet mean volume (Bld) [Entitic vol] 10.1 fL Normal 6.2-12.0 [facility] Comment on above: Performed By: #### L 500.4050, L700.6800, L100.0100 #### [facility] [address] [place], [address] Platelets (Bld) [#/Vol] 277 10*3/uL Normal 150-450 [facility] Comment on above: Performed By: #### L 500.4050, L700.6800, L100.0100 #### [facility] [address] [place], [address] RBC (Bld) [#/Vol] 4.09 10*6/uL Low 4.2-5.4 [facility] Comment on above: Performed By: #### L 500.4050, L700.6800, L100.0100 #### [facility] [address] [place], [address] RDW SD 44.5 fl High 35.1-43.9 [facility] Comment on above: Performed By: #### L 500.4050, L700.6800, L100.0100 #### [facility] [address] [place], [address] WBC (Bld) [#/Vol] 7.4 10*3/uL Normal 4.4-11.0 [facility] Comment on above: Performed By: #### L 500.4050, L700.6800, L100.0100 #### [facility] [address] [place], [address] Comprehensive Metabolic Prof [facility] 03-03-2024 Albumin [Mass/Vol] 3.0 g/dL Low 3.2-5.0 [facility] Comment on above: Performed By: #### L 500.4050, L700.6800, L100.0100 #### [facility] [address] [place], [address] Albumin/Globulin [Mass ratio] 0.8 {ratio} Low 0.9-2.4 [facility] Comment on above: Performed By: #### L 500.4050, L700.6800, L100.0100 #### [facility] [address] [place], [address] ALK P 57 U/L Normal 45-117 [facility] Comment on above: Performed By: #### L 500.4050, L700.6800, L100.0100 #### [facility] [address] [place], [address] ALT [Catalytic activity/Vol] 12 U/L Low 13-56 [facility] Comment on above: Performed By: #### L 500.4050, L700.6800, L100.0100 #### [facility] [address] [place], [address] AST [Catalytic activity/Vol] 14 U/L Low 15-37 [facility] Comment on above: Performed By: #### L 500.4050, L700.6800, L100.0100 #### [facility] [address] [place], [address] Bilirubin [Mass/Vol] 0.30 mg/dL Normal 0.20-1.00 [facility] Comment on above: Result Comment: For patients on eltrombopag therapy, use of Dimension [place] TBIL is not recommended. Performed By: #### L 500.4050, L700.6800, L100.0100 #### [facility] [address] [place], [address] BUN/CRE 14.6 RATIO Normal 10-20 [facility] Comment on above: Performed By: #### L 500.4050, L700.6800, L100.0100 #### [facility] [address] [place], [address] CA,Total 9.1 mg/dL Normal 8.5-10.1 [facility] Comment on above: Performed By: #### L 500.4050, L700.6800, L100.0100 #### [facility] [address] [place], [address] Chloride [Moles/Vol] 106 mmol/L Normal 98-107 [facility] Comment on above: Performed By: #### L 500.4050, L700.6800, L100.0100 #### [facility] [address] [place], [address] CO2 [Moles/Vol] 24.0 mmol/L Normal 21.0-32.0 [facility] Comment on above: Performed By: #### L 500.4050, L700.6800, L100.0100 #### [facility] [address] [place], [address] Creatinine [Mass/Vol] 0.41 mg/dL Low 0.55-1.02 [facility] Comment on above: Result Comment: The validity of the calculated GFR GFRAA in patients over 70 years has not been determined. Clinical correlation is essential. Performed By: #### L 500.4050, L700.6800, L100.0100 #### [facility] [address] [place], [address] ECRCL 199.45 ml/min Normal [facility] Comment on above: Performed By: #### L 500.4050, L700.6800, L100.0100 #### [facility] [address] [place], [address] EST GFR - AA 238 mL/min Normal >60 [facility] Comment on above: Result Comment: Afri can English GFR Calc Performed By: #### L 500.4050, L700.6800, L100.0100 #### [facility] [address] [place], [address] GAP 6 Normal 5-15 [facility] Comment on above: Performed By: #### L 500.4050, L700.6800, L100.0100 #### [facility] [address] [place], [address] GFR/1.73 sq M.predicted among non-blacks MDRD (S/P/Bld) [Vol rate/Area] 197 mL/min/{1.73_m2} Normal >60 [facility] Comment on above: Result Comment: Non- GFR Calc Performed By: #### L 500.4050, L700.6800, L100.0100 #### [facility] [address] [place], [address] Globulin (S) [Mass/Vol] 3.8 g/dL Normal 2.2-4.2 [facility] Comment on above: Performed By: #### L 500.4050, L700.6800, L100.0100 #### [facility] [address] [place], [address] Glucose [Mass/Vol] 79 mg/dL Normal 74-106 [facility] Comment on above: Performed By: #### L 500.4050, L700.6800, L100.0100 #### [facility] [address] [place], [address] Potassium [Moles/Vol] 3.6 mmol/L Normal 3.5-5.1 [facility] Comment on above: Performed By: #### L 500.4050, L700.6800, L100.0100 #### [facility] [address] [place], [address] Sodium [Moles/Vol] 136 mmol/L Normal 136-145 [facility] Comment on above: Performed By: #### L 500.4050, L700.6800, L100.0100 #### [facility] [address] [place], [address] T PROT 6.8 g/dL Normal 6.4-8.2 [facility] Comment on above: Performed By: #### L 500.4050, L700.6800, L100.0100 #### [facility] [address] [place], [address] Urea nitrogen [Mass/Vol] 6 mg/dL Low 7-18 [facility] Comment on above: Performed By: #### L 500.4050, L700.6800, L100.0100 #### [facility] [address] [place], [address] Emergency Department Summary on 03-03-[address] [facility] Medical Records Department [address] [place] [address] Emergency Department Summary 03/03/24 MR#: [id number] Acct: [id number] Name: BERTIN MCDUFFIE Rep #: [id number] : 1995 28 From: Gildardo Dunlap DO PCP: ROSANA EVANS [employer]-C Status:REG ER Location: ED HPI History of Present Illness Chief Complaint: Abd Pain Informant: patient Onset/Context/Uday thayer Onset: Days (2-3) Context: Gradual Onset Timing: Continuous Quality: Aching, cramping Location: Epigastric area and back Worsened by: Eating, drinking Relieved by: Nothing Narrative Narrative: Patient presents with nausea, vomiting, dizziness, and lightheadedness that has been getting worse over the past 2 to 3 days. Patient states she has aching and cramping over her upper abdomen. Patient states it is worse with eating and drinking. Patient states that has been constant. Patient admits to some nausea and vomiting. Patient states she is having difficulty keeping anything down. Patient states she is approximately 22 weeks . Patient denies any fevers or chills. Patient denies any swelling. Patient states her vision has become blurry intermittently. [facility] Medical History (Updated 03/03/24 @ 15:[address] Gildardo Dunlap, DO) Anxiety Depression Factor V Leiden Seizure disorder Gallstones Home Medications ???Medication ???Instructions ???Recorded ???Last Taken ???Type buspirone 15 mg tablet 15 mg PO BID 02/12/22 Unknown History lurasidone 80 mg tablet (Latuda) 80 mg PO DAILY 02/12/22 Unknown History ondansetron 4 mg disintegrating 4 mg PO Q8H PRN PRN Nausea #10 tabs 03/03/24 Unknown Rx tablet Allergy/AdvReac Type Severity Reaction Status Date / Time No Known Allergies Allergy Verified 03/03/24 12:38 Surgical History no surgical history no surgical history Social History (Updated 03/03/24 @ 15:[address] Gildardo Dunlap, DO) Smoking Status: Current every day smoker tobacco type: cigarettes substance use type: marijuana ROS ROS ED Constitutional Constitutional ED: Reports chills and subjective; Denies fever(s) Eyes Eyes: Reports blurry vision; Denies diplopia ENT ENT ED: Denies rhinorrhea or sore throat Cardiovascular Cardiovascular: Denies chest pain or palpitations Respiratory/Chest Respiratory/Chest: Denies cough or dyspnea Gastrointestinal Gastrointestinal: Reports abdominal pain, diarrhea, nausea and vomiting Genitourinary Genitourinary ED: Denies dysuria or hematuria Musculoskeletal Musculoskeletal: Reports back pain; Denies neck pain Integumentary Denies abscess or rash Neurologic Neurologic: Reports headache(s) and weakness Allergic/Immunologi c Allergic/Immunologi c ED: Denies mouth swelling or urticaria EXAM Physical Exam Const Vital Signs: 03/03/24 12:35 03/03/24 13:30 03/03/24 14:00 Temperature 98.2 F Temperature Source Temporal Pulse Rate 77 72 Pulse Rate [Lying] Pulse Rate [Sitting (for 1 minute prior to obtaining)] Pulse Rate [Standing (for 1 minute prior to obtaining)] Respiratory Rate 14 Blood Pressure 120/60 105/63 105/62 Blood Pressure [Lying] Blood Pressure [Sitting (for 1 minute prior to obtaining)] Blood Pressure [Standing (for 1 minute prior to obtaining)] Blood Pressure Mean 80 76 75 Blood Pressure Mean [Lying] Blood Pressure Mean [Sitting (for 1 minute prior to obtaining)] Blood Pressure Mean [Standing (for 1 minute prior to obtaining)] Pulse Ox 97 97 98 Oxygen Delivery Method Room Air 03/03/24 15:00 03/03/24 15:43 Temperature Temperature Source Pulse Rate 84 Pulse Rate [Lying] 76 Pulse Rate [Sitting (for 1 minute prior to obtaining)] 77 Pulse Rate [Standing (for 1 minute prior to obtaining)] 78 Respiratory Rate Blood Pressure 101/59 L Blood Pressure [Lying] 96/66 Blood Pressure [Sitting (for 1 minute prior to obtaining)] 103/67 Blood Pressure [Standing (for 1 minute prior to obtaining)] 105/61 Blood Pressure Mean 73 Blood Pressure Mean [Lying] 76 Blood Pressure Mean [Sitting (for 1 minute prior to obtaining)] 79 Blood Pressure Mean [Standing (for 1 minute prior to obtaining)] 75 Pulse Ox Oxygen Delivery Method Positive well nourished and well developed General Appearance ED: well developed and NAD HEENT Reports moist mucous membranes Neck supple and no JVD Resp normal respiratory effort and clear to auscultation bilaterally Cardio regular rate and regular rhythm GI non-distended Palpation: soft and tender epigastric, LUQ, RUQ and Valles's sign Extremity normal to inspection General Extremety ED: Negative for edema or tenderness General Extremity: Negative for edema Neuro oriented x3, CN's II-XII intact bilaterally and no sensory deficit (more content not included)... Normal [facility] Lipaseon 03-03-2024 Lipase [Catalytic activity/Vol] 30 U/L Normal 13-75 [facility] Comment on above: Result Comment: Dilshad nugent note: LIPASE revised reference range effective 22. New Lipase methodology. Expected to produce lower values than the previous assay method. NEW Reference Range: 13 - 75 U/L Performed By: #### L 700.8000, L501.2450 #### [facility] [address] [place], [address] ,Serum,hCG Quali.on 03-03-2024 HCG, SERUM QUAL Positive Abnormal [facility] Comment on above: Result Comment: PREG PATIENCE TEST is *POSITIVE* CRITICAL VALUE CALLED TO TRAY DANIEL 03/03/24 1345 Og Reyes. RESULTS READ BACK BY SAME. Performed By: #### L 500.4050, L700.6800, L100.0100 #### [facility] [address] [place], [address] Urinalysis, Completeon 03-03 AMORPHOUS 1+ Normal [facility] Comment on above: Order Comment: COLLE CTOR TO SPECIFY Performed By: #### L 400.0001 #### [facility] [address] [place], [address] BACTERIA 1+ /hpf Normal None Seen [facility] Comment on above: Order Comment: NATALIA CTOR TO SPECIFY Performed By: #### L 400.0001 #### [facility] [address] [place], [address] EPI,SQUAMOUS 0-5 SEEN Normal 5-10 [facility] Comment on above: Order Comment: NATALIA CTOR TO SPECIFY Performed By: #### L 400.0001 #### [facility] [address] [place], [address] Mucus Ql (Urine sed) 0 SEEN Normal [facility] Comment on above: Order Comment: NATALIA CTOR TO SPECIFY Performed By: #### L 400.0001 #### [facility] [address] [place], [address] RBC 0 SEEN Normal 0-5 [facility] Comment on above: Order Comment: NATALIA CTOR TO SPECIFY Performed By: #### L 400.0001 #### [facility] [address] [place], [address] WBC 0 SEEN Normal 0-5 [facility] Comment on above: Order Comment: NATALIA CTOR TO SPECIFY Performed By: #### L 400.0001 #### [facility] [address] [place], [address] hCG Titer Quant., Serumon HCG QUANT. 5130 mIU/mL High 1-3 [facility] Comment on above: Result Comment: hCG levels with Gestational Age Gestational Age hCG mIU/mL (IU/L) 0.2 - 1 week 5 - 50 1-2 weeks 50 - 500 2-3 weeks 100 - 5000 3-4 weeks 500 - 03504 4-5 weeks 1000 - 68332 5-6 weeks 64469 - 100,000 6-8 weeks 46612 - 200,000 2-3 months 08349 - 100,000 Performed By: #### L 700.8000, L501.2450 #### [facility] [address] [place], [address] [id number] BERTIN MCDUFFIE ([id number]) 1995 F Date Time Provider Department 02/17/24 SIRISHA FIELDS [id number] During your visit today, we recorded the following information about you: Sirisha Fields RN 02/17/2024 11:26 AM Signed 2nd risk assessment form submitted 02/17/2024. 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 Take with the 300 mg tabelt. Total dose = 350 mg/day. - aspirin, enteric coated (ECOTRIN LOW STRENGTH) 81 mg EC tablet Take 1 tablet by mouth once daily. - sertraline (ZOLOFT) 100 mg tablet Take 1 tablet by mouth once daily. - Wgmysstx-Dd-Wvw-Fe- FA tab Take 1 tablet by mouth once daily. - miconazole (MONISTAT 7) 2 % vaginal cream Use 1 Applicator vaginally daily at bedtime. - folic acid 1 mg tablet Take 4 tablets by mouth once daily. - lamoTRIgine ER (LAMICTAL XR) 300 mg 24 hr tablet Take 1 tablet by mouth every morning. - VIT 10-IRON FUM-FOLIC ORAL Take by mouth. 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 Localized superficial swelling, mass, or lump [*11/11/2013 11/25/2013 HIGINIO positive [R76.8] 11/25/2013 Nocturia [R35.1] 01/16/2014 Dizziness [R42] 01/16/2014 Abnormal thyroid blood test [R79.89] 01/16/2014 Attention deficit hyperactivity disorder (ADHD)*04/04/2009 Seizures (HCC) [R56.9] 09/08/2023 Nicotine use disorder, F17.2 [F17.200] 11/04/2023 Malnutrition of mild degree (HCC) [E44.1] 11/04/2023 Less than 8 weeks gestation of [Z3A.0*11/05/2023 01/12/2024 Encounter for supervision of normal i*01/12/2024 Short interval between pregnancies affecting pr*01/12/2024 History of gestational diabetes in prior pregna*01/12/2024 History of polyhydramnios [Z87.59] 01/12/2024 Factor V Leiden (HCC) [D68.51] 01/12/2024 depression [F53.0] 01/12/2024 Encounter Status:Closed by SIRISHA FIELDS on 02/17/24 Normal [facility] Examination level ultrasound on 02-16-2024 Indication Standard anatomic survey h/o seizure disorder Impression REMOTE READ The patient is referred for a standard anatomic survey. - Single, live, intrauterine . - biometry is consistent with the established gestational age. - No malformations were visualized on a complete standard anatomic survey. - The amniotic fluid volume is normal amount. - The placenta is posterior, fundal. - The Transabdominal cervical length measures 36.8 mm with no evidence of funneling or other dynamic changes. - Not all structural malformations can be detected by ultrasound examination. Recommendations - growth at 32 weeks. - Additional follow up as clinically indicated. Maternal Assessment Height 165 cm Height (ft) 5 ft Height (in) 5 in Physical Exam Initial weight (lb) 145 lb Initial BMI 24.13 kg/m Maternal assessment other: 9 Para 3 Method Transabdominal ultrasound examination. View: Adequate visualization Rosas . Number of fetuses: 1 Dating GA by prior assessment 19 w + 3 d JANE by prior assessment: 07/09/2024 Ultrasound examination on: 02/16/2024 GA by U/S based upon: AC, BPD, Femur, HC GA by U/S 19 w + 6 d JANE by U/S: 07/06/2024 Assigned: based on stated JANE, selected on 02/16/2024 Assigned GA 19 w + 3 d Assigned JANE: 07/09/2024 General Evaluation Cardiac activity present. FHR 159 bpm. movements: present. Presentation: cephalic Placenta: Placental site: posterior, fundal Umbilical cord: Cord vessels: 3 vessel cord Amniotic fluid: Amount of AF: normal amount. MVP 6.1 cm Growth Overview Exam date GA BPD (mm) HC (mm) AC (mm) FL (mm) HL (mm) EFW (g) 02/16/2024 19w 3d 44.8 56% 166.7 46% 155 83% 30.8 69% 28.9 51% 327 77% Biometry Standard BPD 44.8 mm 19w 4d 56% Hadlock OFD 58.8 mm 19w 1d 62% Nicolaides HC 166.7 mm 19w 2d 46% Crystal Cerebellum tr 21.0 mm 20w 0d 79% Hill Nuchal fold 3.6 mm AC 155.0 mm 20w 5d 83% Hadlock Femur 30.8 mm 19w 5d 69% Crystal Humerus 28.9 mm 19w 3d 51% Crystal EFW 327 g 20w 0d 77% Hadlock EFW (lb) 0 lb EFW (oz) 12 oz EFW by: Hadlock (HC-AC-FL) Extended Color Checker 5.5 mm CM 5.5 mm 71% Nicolaides Extremities / Bony Struc FL / HC 0.18 38% Hadlock Other Structures FHR 159 bpm Anatomy Cranium: normal Lateral ventricles: normal Choroid plexus: normal Midline falx: normal Cavum septi pellucidi: normal Cerebellum: normal Cisterna magna: normal Head / Neck Vermis: Normal but not required for a standard anatomy exam Neck: Normal but not required for a standard anatomy exam Nuchal fold: Normal but not required for a standard anatomy exam Lips: normal Profile: Normal but not required for a standard anatomy exam Nose: Normal but not required for a standard anatomy exam Face Maxilla: Normal but not required for a standard anatomy exam Mandible: Normal but not required for a standard anatomy exam Orbits: Normal but not required for a standard anatomy exam Lens: Normal but not required for a standard anatomy exam 4-chamber view: normal RVOT view: normal LVOT view: normal 3-vessel view: normal 8-oqytwu-lbrmtks view: normal Heart / Thorax Situs: situs solitus (normal) Aortic arch view: Normal but not required for a standard anatomy exam SVC: Normal but not required for a standard anatomy exam IVC: Normal but not required for a standard anatomy exam Cardiac axis: normal Rt lung: Normal but not required for a standard anatomy exam Lt lung: Normal but not required for a standard anatomy exam Diaphragm: Normal but not required for a standard anatomy exam Cord insertion: normal Stomach: normal Kidneys: normal Bladder: normal Genitals: normal Abdomen Abdom. wall: normal Cervical spine: normal Thoracic spine: normal Lumbar spine: normal Sacral spine: normal Arms: normal Legs: normal Rt upper arm: normal Rt forearm: normal Rt hand: normal Rt fingers: normal Lt upper arm: normal Lt forearm: normal Lt hand: normal Lt fingers: normal Rt upper leg: normal Rt lower leg: normal Rt foot: normal Lt upper leg: normal Lt lower leg: normal Lt foot: normal sex: male Wants to know sex: yes Maternal Structures Uterus / Cervix Uterus: Visualized Cervix: Visualized Approach: Transabdominal Cervical length 36.8 mm Ovaries / Tubes / Adnexa Rt ovary: Visualized Lt ovary: Visualized Performed By: Liliya Covarrubias RDMS, RVT Read By: Kimber Johansen, M.D. MATERNAL MEDICINE [facility] Radiology Study observation (narrative) [facility] Marek 02-12-2024 CNPN Telephone ([id number]) ---- BERTIN MCDUFFIE ([id number]) 1995 F Date Time Provider Department 02/12/24 OZ TERRAZAS NE50MN During your visit today, we recorded the following information about you: Latricia Jurado 02/12/2024 10:23 AM Signed Prior Authorization Needed: Received by: Fax Requested by (pharmacy name): [facility] Phone number: [phone] Name of medication: lamotrigine Strength and dosage: 50 Insurance company name and phone #: cmm Patient ID: [id number] PCN #: BIN#: Group #: Patient of Juana Benitez RN 02/12/2024 10:51 AM Signed Electronic PA completed. Approved Juana Dawson RN Allergies As of Date: 02/12/2024 (No Known Allergies) Date Reviewed: 02/01/2024 Reviewed by: Sheela Moreira MA - Fully Assessed Reason for Visit: Insurance Authorization [[id number]] Cmt: lamotrigine Prescriptions as of 02/12/2024 - lamoTRIgine ER (LAMICTAL XR) 50 mg 24 hr tablet Take 1 tablet by mouth once daily. Take with the 300 mg tabelt. Total dose = 350 mg/day. - aspirin, enteric coated (ECOTRIN LOW STRENGTH) 81 mg EC tablet Take 1 tablet by mouth once daily. - sertraline (ZOLOFT) 100 mg tablet Take 1 tablet by mouth once daily. - Oxniufml-Kp-Mba-Fe- FA tab Take 1 tablet by mouth once daily. - miconazole (MONISTAT 7) 2 % vaginal cream Use 1 Applicator vaginally daily at bedtime. - folic acid 1 mg tablet Take 4 tablets by mouth once daily. - lamoTRIgine ER (LAMICTAL XR) 300 mg 24 hr tablet Take 1 tablet by mouth every morning. - VIT 10-IRON FUM-FOLIC ORAL Take by mouth. 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 Localized superficial swelling, mass, or lump [*11/11/2013 11/25/2013 HIGINIO positive [R76.8] 11/25/2013 Nocturia [R35.1] 01/16/2014 Dizziness [R42] 01/16/2014 Abnormal thyroid blood test [R79.89] 01/16/2014 Attention deficit hyperactivity disorder (ADHD)*04/04/2009 Seizures (HCC) [R56.9] 09/08/2023 Nicotine use disorder, F17.2 [F17.200] 11/04/2023 Malnutrition of mild degree (HCC) [E44.1] 11/04/2023 Less than 8 weeks gestation of [Z3A.0*11/05/2023 01/12/2024 Encounter for supervision of normal i*01/12/2024 Short interval between pregnancies affecting pr*01/12/2024 History of gestational diabetes in prior pregna*01/12/2024 History of polyhydramnios [Z87.59] 01/12/2024 Factor V Leiden (HCC) [D68.51] 01/12/2024 depression [F53.0] 01/12/2024 Encounter Status:Closed by JUANA DAWSON on 02/12/24 Normal [facility] US ABD RIGHT UPPER QUADRANTo n 02-04-2024 US ABD RIGHT UPPER QUADRANT * * *Final Report* * * DATE OF EXAM: Feb 04 2024 11:48AM WRU [id number] - US ABD RIGHT UPPER QUADRANT / PROCEDURE REASON: Diarrhea, unspecified type * * * * Physician Interpretation * * * * EXAM TITLE: US ABD RIGHT UPPER QUADRANT HISTORY: Diarrhea. TECHNIQUE: Sonography of the right upper quadrant was performed. Images were obtained and stored in a permanent archive. MQ: [id number] COMPARISON: None. RESULT: Pancreas: Normal sonographic appearance in the visualized portions. Portions obscured: tail Liver: Echotexture: Homogeneous Echogenicity: Normal Surface contour: Smooth Lesions: None. MPV: Patent. Biliary: No intrahepatic biliary duct dilation. CBD: 3 mm in diameter. Gallbladder: Normal caliber -Contents: A few gallstones are visualized with or without posterior shadowing. The largest gallstone measures 1.9 x 1.5 x 1.9 cm. -Wall: 2 mm in thickness -Other: Negative sonographic Valles's sign. Right Kidney: Within normal limits. Ascites: None. IMPRESSION: Gallbladder stones. Extermination Supervisor: QAMAR Transcribe Date/Time: Feb 05 2024 9:06A Dictated by : DAVID CM MD This examination was interpreted and the report reviewed and electronically signed by: DAVID CM MD on Feb 05 2024 9:18AM EST [id number] Normal [facility] CBC panel Auto (Bld)on 01-31 Erythrocyte distribution width (RBC) [Ratio] 14.3 % Normal 11.5-15.0 [facility] Comment on above: Order Comment: Miguel bell Type: BLOOD SPECIMENOrdering Facility: [facility] Address: [address] [place] [address] Performed By: #### 5 8410-2 ####[facility] [id number] [place] [address] [place] Hematocrit (Bld) [Volume fraction] 35.5 % Low 36.0-46.0 [facility] Comment on above: Order Comment: Migeul bell Type: BLOOD SPECIMENOrdering Facility: [facility] Address: [address] [place] [address] Performed By: #### 5 8410-2 ####[facility] [id number] [place] [address] [place] Hemoglobin (Bld) [Mass/Vol] 11.2 g/dL Low 11.5-15.5 [facility] Comment on above: Order Comment: Tueyti ray Type: BLOOD SPECIMENOrdering Facility: [facility] Address: [address] [id number] Performed By: #### 5 8410-2 ####[facility] [id number] [place] [address] [place] MCH (RBC) [Entitic mass] 28.4 pg Normal 26.0-34.0 [facility] Comment on above: Order Comment: Speci men Type: BLOOD SPECIMENOrdering Facility: [facility] Address: [address] [place] [address] Performed By: #### 5 8410-2 ####[facility] [id number] [place] [address] [place] MCHC (RBC) [Mass/Vol] 31.5 g/dL Normal 30.5-36.0 [facility] Comment on above: Order Comment: Speci men Type: BLOOD SPECIMENOrdering Facility: [facility] Address: [address] [place] [address] Performed By: #### 5 8410-2 ####[facility] [id number] [place] [address] [place] MCV (RBC) [Entitic vol] 90.1 fL Normal 80.0-100.0 [facility] Comment on above: Order Comment: Speci men Type: BLOOD SPECIMENOrdering Facility: [facility] Address: [address] [place] [address] Performed By: #### 5 8410-2 ####[facility] [id number] [place] [address] [place] Nucleated RBC (Bld) [#/Vol] 10*3/uL Normal <0.01 [facility] Comment on above: Order Comment: Speci men Type: BLOOD SPECIMENOrdering Facility: [facility] Address: [address] [place] [address] Performed By: #### 5 8410-2 ####[facility] [id number] [place] [address] [place] Platelet mean volume (Bld) [Entitic vol] 10.8 fL Normal 9.0-12.7 [facility] Comment on above: Order Comment: Speci men Type: BLOOD SPECIMENOrdering Facility: [facility] Address: [address] [place] [address] Performed By: #### 5 8410-2 ####[facility] [id number] [place] [address] [place] Platelets (Bld) [#/Vol] 278 10*3/uL Normal 150-400 [facility] Comment on above: Order Comment: Speci men Type: BLOOD SPECIMENOrdering Facility: [facility] Address: [address] [place] [address] Performed By: #### 5 8410-2 ####[facility] [id number] [place] [address] [place] RBC (Bld) [#/Vol] 3.94 10*6/uL Normal 3.90-5.20 [facility] Comment on above: Order Comment: Speci men Type: BLOOD SPECIMENOrdering Facility: [facility] Address: [address] [place] [address] Performed By: #### 5 8410-2 ####[facility] [id number] [place] [address] [place] WBC (Bld) [#/Vol] 5.19 10*3/uL Normal 3.70-11.00 [facility] Comment on above: Order Comment: Speci men Type: BLOOD SPECIMENOrdering Facility: [facility] Address: [address] [place] [address] Performed By: #### 5 8410-2 ####[facility] [id number] [place] [address] [place] CNOVon 02-01-2024 CNOV [facility] ---- BERTIN MCDUFFIE ([id number]) 1995 F Date Time Provider Department 02/01/24 11:15 AM TE [facility] During your visit today, we recorded the following information about you: Temperature Pulse Respiration Blood pressure 98.4 degrees 75/minute 20/minute 98/60 Weight 68.1 kg Te Gao MD 02/01/2024 12:07 PM Signed Patient presents with: Abdominal Pain: Weakness, discolored stools x 4 days HPI: Currently 18 weeks ; reported abdominal pain and nausea/vomiting at new OB intake 01/12/24. Feeling worse for 4 days with change in stool color (green). Her daughter is sick with sore throat and multiple family members have had a gastrointestinal illness. Positive symptoms: Fatigue, Headache, Nausea, Vomiting (mostly dry heaves), Diarrhea, Negative symptoms: Cough, Nasal Congestion, Rhinorrhea, Fever, blood in stool, OTC: fluids PAST MEDICAL HISTORY No date: Anemia No date: Borderline personality disorder ([facility]) No date: Depression with anxiety No date: Diabetes, gestational No date: Factor V Leiden ([facility]) Comment: Diagnosed 201501/12/2024: History of gestational diabetes in prior , currently No date: depression No date: Seizure ([facility]) 06/15/2012: Seizures ([facility]) 09/08/2023: Seizures ([facility]) Comment: Last seizure 2022, admisssions to [facility] 09/07 aand 11/02 Dr Oz Terrazas PAST SURGICAL HISTORY No date: DANDC, DIAG AND/OR THERAPEUTIC Comment: 2016 and 2021 MEDICATIONS: Current Outpatient Medications Medication Sig aspirin, enteric coated (ECOTRIN LOW STRENGTH) 81 mg EC tablet Take 1 tablet by mouth once daily. sertraline (ZOLOFT) 100 mg tablet Take 1 tablet by mouth once daily. Edwugfww-Ak-Rks-Fe- FA tab Take 1 tablet by mouth once daily. folic acid 1 mg tablet Take 4 tablets by mouth once daily. lamoTRIgine ER (LAMICTAL XR) 300 mg 24 hr tablet Take 1 tablet by mouth every morning. VIT 10-IRON FUM-FOLIC ORAL Take by mouth. miconazole (MONISTAT 7) 2 % vaginal cream Use 1 Applicator vaginally daily at bedtime. (Patient not taking: Reported on 02/01/2024) No current facility-administer ed medications for this visit. ALLERGIES: ALLERGIES No Known Allergies VITALS: BP 98/60 Pulse 75 Temp 36.9 ?C (98.4 ?F) Resp 20 Wt 68.1 kg (150 lb 2.1 oz) LMP 09/24/2023 (Exact Date) SpO2 98% BMI 25.37 kg/m? Last 4 Encounter BP Readings: Date: BP: 02/01/2024 98/60 01/12/2024 100/60 10/29/2023 92/54 10/27/2023 128/70 PHYSICAL EXAM: GEN: Pleasant, in no acute distress. Accompanied by her children HEENT: PERRL, EOMI, conjunctiva clear Throat: moist mucous membranes, no erythema, no exudate Neck: supple, no thyromegaly, no lymphadenopathy HEART: regular rate and rhythm, no murmurs LUNGS: clear to auscultation, no wheezes or crackles, no increased WOB ABD: Soft, non-distended, suprapubic uterus palpable below the umbilicus, discomfort lower abdomen and left side. ASSESSMENT/PLAN: 1. Nausea and vomiting, unspecified vomiting type - ICD9: 787.01, ICD10: R11.2 Suspect infectious gastroenteritis. Hydration with fluids encouraged. Hand hygiene to reduce transmission. Right upper quadrant ultrasound was unable to be completed last week. OB labs including CMP were not drawn with her Lamictal level last week. She will have labs drawn this morning and reschedule right upper quadrant ultrasound. Follow up in the ER with signs of dehydration, increasing abdominal pain, high fever, or blood in vomit or stool. Te Gao MD Allergies As of Date: 02/01/2024 (No Known Allergies) Date Reviewed: 02/01/2024 Reviewed by: Sheela Moreira MA - Fully Assessed Reason for Visit: Abdominal Pain [1] Cmt: Weakness, discolored stools x 4 days Primary Visit Diagnosis:Nausea and vomiting, unspecified vomiting type [R11.2] Prescriptions as of 02/01/2024 - aspirin, enteric coated (ECOTRIN LOW STRENGTH) 81 mg EC tablet Take 1 tablet by mouth once daily. - sertraline (ZOLOFT) 100 mg tablet Take 1 tablet by mouth once daily. - Exzpfvka-Qo-Mhf-Fe- FA tab Take 1 tablet by mouth once daily. - miconazole (MONISTAT 7) 2 % vaginal cream Use 1 Applicator vaginally daily at bedtime. - folic acid 1 mg tablet Take 4 tablets by mouth once daily. - lamoTRIgine ER (LAMICTAL XR) 300 mg 24 hr tablet Take 1 tablet by mouth every morning. - VIT 10-IRON FUM-FOLIC ORAL Take by mouth. 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 Normal [facility] HBV surface Ag Ser Qlon 01-13 HBV surface Ag Ql (S) Negative Normal Negative [facility] Comment on above: Order Comment: Speci men Type: BLOOD SPECIMENOrdering Facility: [facility] Address: [address] [place] [address] Performed By: #### 5 195-3, 08989-9, 27838-5 ####[facility] [id number] [place] [address] [place] HCV Ab Ser Qlon 02-01-2024 HCV Ab Ql (S) Negative Normal Negative [facility] Comment on above: Order Comment: Speci men Type: BLOOD SPECIMENOrdering Facility: [facility] Address: [address] [place] [address] Result Comment: The result suggests no evidence of active infection with Hepatitis C virus. Should recent infection be suspected, repeat testing may be considered 4-6 weeks after this draw. Performed By: #### 1 6128-1 ####[facility] [id number] [place] [address] [place] HIV 1+2 Ab IA Qlon 4 HIV 1 and 2 Ab IA.rapid Nom (S/P/Bld) Normal [facility] Comment on above: Order Comment: Speci men Type: BLOOD SPECIMENOrdering Facility: [facility] Address: [address] [place] [address] Result Comment: Test not indicated. Performed By: #### 5 195-3, 58521-6, 19102-4 ####[facility] [id number] [place] [address] [place] HIV 1+2 Ab+HIV1 p24 Ag IA Ql Non-Reactive Normal Nonreactive [facility] Comment on above: Order Comment: Speci men Type: BLOOD SPECIMENOrdering Facility: [facility] Address: [address] [place] [address] Performed By: #### 5 195-3, 54910-9, 63387-4 ####[facility] [id number] [place] [address] [place] HIV immunoassay testing algorithm interpretation (S/P/Bld) [Interp] Normal [facility] Comment on above: Order Comment: Speci men Type: BLOOD SPECIMENOrdering Facility: [facility] Address: [address] [place] [address] Result Comment: No e vidence of HIV-1 or HIV-2 infection. Should recent infection be suspected, repeat testing may be considered 2-3 weeks after this draw. [place] Rev. Code 3701.243(E): This information has been disclosed to you from confidential records protected from disclosure by state law. ???You shall make no further disclosure of this information without the specific, written, and informed release of the individual to whom it pertains or as otherwise permitted by state law. A general authorization for the release of medical or other information is not sufficient for the purpose of the release of HIV test results or diagnoses. Performed By: #### 5 195-3, 77218-1, 53394-1 ####[facility] [id number] [address] OF [facility] HbA1c (Bld)on 02-01-2024 Average glucose Estimated from glycated hemoglobin (Bld) [Mass/Vol] 88 mg/dL Normal [facility] Comment on above: Order Comment: Speci men Type: BLOOD SPECIMENOrdering Facility: [facility] Address: [address] [place] [address] Result Comment: eAG: (Estimated average glucose) is a calculated value from HgbA1c and is instruments sales representative of the average blood glucose level in the last 2-3 month period. Performed By: #### 5 5454-3 ####[facility] [id number] [address] STATES OF [facility] HbA1c (Bld) [Mass fraction] 4.7 % Normal 4.3-5.6 [facility] Comment on above: Order Comment: Speci men Type: BLOOD SPECIMENOrdering Facility: [facility] Address: [address] [place] [address] Result Comment: [place] [employer] guidelines indicate that patients with HgbA1c in the range 5.7-6.4% are at increased risk for development of diabetes, and intervention by lifestyle modification may be beneficial. HgbA1c greater or equal to 6.5% is considered diagnostic of diabetes. Performed By: #### 5 5454-3 ####[facility] LABIA [id number] [address] [place] RUBELLA IGG ANTIBODYon 01-31 RUBELLA IGG AB, QUAL Positive Normal Positive [facility] Comment on above: Order Comment: Speci men Type: BLOOD SPECIMENOrdering Facility: [facility] Address: [address] [place] [address] Result Comment: The result suggests recent or past exposure to Rubella virus or history of Rubella vaccination. Positive result may also be seen due to presence of passively-transferred antibodies. Please correlate with patient's history. Performed By: #### R UBIGG ####[facility] LABCLIA [id number] [place] [address] [place] Reagin and Treponema pallidu m IgG and IgM [Interp]on 02-01-2024 T. pallidum IgG+IgM IA Ql (S) Non-Reactive Normal Nonreactive [facility] Comment on above: Order Comment: Speci men Type: BLOOD SPECIMENOrdering Facility: [facility] Address: [address] [place] [address] Performed By: #### 5 195-3, 02685-5, 94334-3 ####[facility] LABCLIA [id number] [place] [address] [place] Reagin+T pallidum IgG+IgM Se rPl-Impon 02-01-2024 Reagin and Treponema pallidum IgG and IgM [Interp] Cannot exclude recent Treponemal infection if specimen collected within 7-10 days after appearance of suspect lesions or 2-3 weeks after an exposure. Clinical correlation is required. Normal [facility] Comment on above: Order Comment: Speci men Type: BLOOD SPECIMENOrdering Facility: [facility] Address: [address] [place] [address] Performed By: #### 5 195-3, 21444-3, 14312-6 ####[facility] LABCLIA [id number] [place] [address] [place] TYPE + SCREEN PRENATALon ABO A Normal [facility] Comment on above: Order Comment: Speci men Type: BLOOD SPECIMENOrdering Facility: [facility] Address: [address] [place] [address] Performed By: #### T SPN ####[facility] BLOOD BANKCLIA [id number] [address] HISTORICAL AB SCR STATUS Negative Normal [facility] Comment on above: Order Comment: Speci men Type: BLOOD SPECIMENOrdering Facility: [facility] Address: [address] [place] [address] Performed By: #### T SPN ####[facility] BLOOD BANKCLIA [id number] [address] OF [place] Rh Nom (Bld) Positive Normal [facility] Comment on above: Order Comment: Speci men Type: BLOOD SPECIMENOrdering Facility: [facility] Address: [address] [place] [address] Performed By: #### T SPN ####[facility] BLOOD BANKCLIA [id number] [address] TYPE AND SCREEN EXPIRATION 02/04/2024 23:59 Normal [facility] Comment on above: Order Comment: Speci men Type: BLOOD SPECIMENOrdering Facility: [facility] Address: [address] [place] [address] Performed By: #### T SPN ####[facility] BLOOD BANKCLIA [id number] [address] OF [place] CNCOon 01-27-2024 CNCO Letter Text Normal [facility] CNPNon 01-27-2024 CNPN Telephone ([id number]) ---- BERTIN MCDUFFIE ([id number]) 1995 F Date Time Provider Department 01/27/24 JOCELINE DIAZ NE50MN During your visit today, we recorded the following information about you: Joceline Diaz PA-C 01/27/2024 3:17 PM Signed Please call patient regarding her LTG dose. Level was 1.6, can we please confirm she is taking LTG XR 300 mg daily. Please confirm how far along patient is in her and if she has had any breakthrough seizure activity. Will need to adjust medication accordingly. DAVID Chase Lynn, RN 01/28/2024 12:32 PM Signed Called patient, no answer Left VMM to return call to the office TRAY Mitchell Deanna, PA-C 02/02/2024 8:41 AM Signed Can we please try to reach out to patient again. DAVID Chase Lynn, RN 02/02/2024 10:28 AM Signed Called patient, no answer Left VMM to return call to the office. TRAY Mitchell Deanna, PA-C 02/03/2024 10:39 AM Signed Sent ADTZ message to patient. Awaiting response. DAVID Chase Kelly, APRN.ALEX 02/11/2024 10:30 AM Signed Given low level would recommend to increase Ashley Carlson APRN.ALEX 02/11/2024 11:06 AM Addendum Would recommend to increase dose by 50 mg and aim to keep LTG level at 2.0 or higher or greater during . Any concern for seizures? Ashley Carlson APRN.ALEX . Juana Dawson RN 02/11/2024 11:16 AM Signed Called patient, no answer Left VMM to return call to the office for instructions on increasing LTG TRAY Mitchell Lynn, RN 02/11/2024 11:32 AM Signed Patient returned call. Provided recommendation of increasing LTG by 50mg for total 350mg/day. She requests Rx for 50mg tab be sent to [facility] in [place] ([facility]) Thank you TRAY Mitchell Kelly, APRN.SURVEY TECHNOLOGIST 02/11/2024 12:14 PM Signed The following approved medication requests have been transmitted electronically. Requested Prescriptions Signed Prescriptions Disp Refills lamoTRIgine ER (LAMICTAL XR) 50 mg 24 hr tablet 30 tablet 5 Sig: Take 1 tablet by mouth once daily. Take with the 300 mg tabelt. Total dose = 350 mg/day. Authorizing Provider: ASHLEY CARLSON APRN.CNP Langenbeck, Kelly, APRN.CNP 02/11/2024 12:14 PM Signed Addended by: ASHLEY CARLSON on: 02/11/2024 12:14 PM Modules accepted: Orders Allergies As of Date: 01/27/2024 (No Known Allergies) Date Reviewed: 01/12/2024 Reviewed by: Deanna Garza MA - Fully Assessed Reason for Visit: Results [95] Primary Visit Diagnosis:Seizure disorder (HCC) [G40.909] Order(s):lamoTRIgin e ER (LAMICTAL XR) 50 mg 24 hr tabletTake 1 tablet by mouth once daily. Take with the 300 mg tabelt. Total dose = 350 mg/day.Disp: 30 tabletRfl: 5 Prescriptions as of 02/11/2024 - lamoTRIgine ER (LAMICTAL XR) 50 mg 24 hr tablet Take 1 tablet by mouth once daily. Take with the 300 mg tabelt. Total dose = 350 mg/day. - aspirin, enteric coated (ECOTRIN LOW STRENGTH) 81 mg EC tablet Take 1 tablet by mouth once daily. - sertraline (ZOLOFT) 100 mg tablet Take 1 tablet by mouth once daily. - Pvelhuwi-Sl-Ukm-Fe- FA tab Take 1 tablet by mouth once daily. - miconazole (MONISTAT 7) 2 % vaginal cream Use 1 Applicator vaginally daily at bedtime. - folic acid 1 mg tablet Take 4 tablets by mouth once daily. - lamoTRIgine ER (LAMICTAL XR) 300 mg 24 hr tablet Take 1 tablet by mouth every morning. - VIT 10-IRON FUM-FOLIC ORAL Take by mouth. 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] 11/11/2013 Localized superficial swelling, mass, or lump [*11/11/2013 11/25/2013 HIGINIO positive [R76.8] 11/25/2013 Nocturia [R35.1] 01/16/2014 Dizziness [R42] 01/16/2014 Abnormal thyroid blood test [R79.89] 01/16/2014 Attention deficit hyperactivity disorder (ADHD)*04/04/2009 Seizures ([facility]) [R56.9] 09/08/2023 Nicotine use disorder, F17.2 [F17.200] 11/04/2023 Malnutrition of mild degree ([facility]) [E44.1] 11/04/2023 Less than 8 weeks gestation of [Z3A.0*11/05/2023 01/12/2024 Encounter for supervision of normal i*01/12/2024 Short interval between pregnancies affecting pr*01/12/2024 History of gestational diabetes in prior pregna*01/12/2024 History of polyhydramnios [Z87.59] 01/12/2024 Factor V Leiden ([facility]) [D68.51] 01/12/2024 depression [F53.0] 01/12/2024 Prescriptions ordered this encounter Disp Refills Start End LAMOTRIGINE ER 50 MG TABLET,EXTENDED* 30 t* 5 02/11/2024 08/09/2024 Route: ORAL Sig: Take 1 tablet by mouth once daily. Take with the 300 mg tabelt. Total dose = 350 mg/day. Encounter Status:Closed by JOCELINE DIAZ on 02/04/24 Normal [facility] lamoTRIgine Shelia lamoTRIgine [Mass/Vol] 1.6 ug/mL Normal 1.0-13.0 [facility] Comment on above: Order Comment: Speci men Type: BLOOD SPECIMENOrdering Facility: [facility] Address: [address] [place] [address] Result Comment: This test was developed and its performance characteristics determined by [facility]'s [facility] [place] ([facility]). It has not been cleared or approved by the FDA. -PLIA is regulated under CLIA as qualified to perform high-complexity testing. This test is used for clinical purposes. It should not be regarded as investigational or for research. Performed By: #### 6 948-4 ####[facility] LABCLIA [id number] [place] [address] [facility] Marek 01-14-2024 CNPN Telephone ([id number]) ---- BERTIN MCDUFFIE ([id number]) 1995 F Date Time Provider Department 01/14/24 THEATRE DIRECTOR [id number] During your visit today, we recorded the following information about you: Sirisha Fields RN 01/14/2024 11:12 AM Signed 1st risk assessment form submitted 01/14/2024. 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 - sertraline (ZOLOFT) 100 mg tablet Take 1 tablet by mouth once daily. - Wbrpalsv-Wh-Aea-Fe- FA tab Take 1 tablet by mouth once daily. - miconazole (MONISTAT 7) 2 % vaginal cream Use 1 Applicator vaginally daily at bedtime. - folic acid 1 mg tablet Take 4 tablets by mouth once daily. - lamoTRIgine ER (LAMICTAL XR) 300 mg 24 hr tablet Take 1 tablet by mouth every morning. - VIT 10-IRON FUM-FOLIC ORAL Take by mouth. 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] 11/11/2013 Localized superficial swelling, mass, or lump [*11/11/2013 11/25/2013 HIGINIO positive [R76.8] 11/25/2013 Nocturia [R35.1] 01/16/2014 Dizziness [R42] 01/16/2014 Abnormal thyroid blood test [R79.89] 01/16/2014 Attention deficit hyperactivity disorder (ADHD)*04/04/2009 Seizures ([facility]) [R56.9] 09/08/2023 Nicotine use disorder, F17.2 [F17.200] 11/04/2023 Malnutrition of mild degree ([facility]) [E44.1] 11/04/2023 Less than 8 weeks gestation of [Z3A.0*11/05/2023 01/12/2024 Encounter for supervision of normal i*01/12/2024 Short interval between pregnancies affecting pr*01/12/2024 History of gestational diabetes in prior pregna*01/12/2024 History of polyhydramnios [Z87.59] 01/12/2024 Factor V Leiden ([facility]) [D68.51] 01/12/2024 depression [F53.0] 01/12/2024 Encounter Status:Closed by SIRISHA FIELDS on 01/14/24 Normal [facility] BACTERIAL VAGINOSIS NAATon 0 01-12-2024 Lactobacillus crispatus+gasseri+linda senii + Gardnerella vaginalis + Atopobium vaginae rRNA MARY+probe Ql (Vag fld) Negative Normal Negative for bacterial vaginosis [facility] Comment on above: Order Comment: Speci men Type: SWABOrdering Facility: [facility] Address: [address] [place] [address] Performed By: #### B VAMP, CVTV ####[facility] LABCLIA [id number] [place] [address] [place] Bacteria Ur Culton 4 Bacteria identified Cx Nom (U) ORGANISM ID: 1 <10,000 CFU/ml Normal urogenital sera Normal [facility] Comment on above: Performed By: #### 6 30-4 ####[facility] LABCLIA [id number] [place] [address] [place] C. trachomatis+N. gonorrhoea e DNA MARY+probe Ql (Unsp spec)on 01-12-2024 C. trachomatis rRNA MRAY+probe Ql (Unsp spec) Negative Normal Negative for Chlamydia trachomatis by amplificaton [facility] Comment on above: Order Comment: Speci men Type: SWABOrdering Facility: [facility] Address: [address] [place] [address] Performed By: #### 3 6902-5 ####[facility] LABCLIA [id number] [place] [address] [place] N. gonorrhoeae rRNA MARY+probe Ql (Unsp spec) Negative Normal Negative for Neisseria gonorrhoeae by amplification [facility] Comment on above: Order Comment: Speci men Type: SWABOrdering Facility: [facility] Address: [address] [place] [address] Performed By: #### 3 6902-5 ####[facility] LABCLIA [id number] [place] [address] [place] DARIAN/TRICHOMONAS NAATon 0 01-12-2024 C. glabrata RNA MARY+probe Ql (Vag fld) Negative Normal Negative for Darian glabrata [facility] Comment on above: Order Comment: Speci men Type: SWABOrdering Facility: [facility] Address: [address] [place] [address] Performed By: #### B VAMP, CVTV ####[facility] LABCLIA [id number] [place] [address] [place] Darian sp DNA MARY+probe Ql (Vag fld) Positive Abnormal Negative for Darian species [facility] Comment on above: Order Comment: Speci men Type: SWABOrdering Facility: [facility] Address: [address] [place] [address] Performed By: #### B VAMP, CVTV ####[facility] LABCLIA [id number] [place] [address] [place] T. vaginalis DNA MARY+probe Ql (Unsp spec) Negative Normal Negative for Trichomonas vaginalis by amplification [facility] Comment on above: Order Comment: Speci men Type: SWABOrdering Facility: [facility] Address: [address] [place] [address] Performed By: #### B MOLLY FORREST ####[facility] LABCLIA [id number] [id number] OF [facility] Marek 01-12-2024 ALEXN Telephone (OBGYWM) ---- BERTIN MCDUFFIE ([id number]) 1995 F Date Time Provider Department 01/12/24 CATRINA MCDUFFIE OBGYWM During your visit today, we recorded the following information about you: Catrina Mcduffie APRN.CNP 01/12/2024 10:08 AM Signed Gallbladder ultrasound ordered, please contact pt to assist with scheduling appt. Catrina Luna APRN.CNP Allergies As of Date: 01/12/2024 (No Known Allergies) Date Reviewed: 01/12/2024 Reviewed by: Deanna Garza MA - Fully Assessed Reason for Visit: Appointment [186] Prescriptions as of 02/18/2024 - lamoTRIgine ER (LAMICTAL XR) 50 mg 24 hr tablet Take 1 tablet by mouth once daily. Take with the 300 mg tabelt. Total dose = 350 mg/day. - aspirin, enteric coated (ECOTRIN LOW STRENGTH) 81 mg EC tablet Take 1 tablet by mouth once daily. - sertraline (ZOLOFT) 100 mg tablet Take 1 tablet by mouth once daily. - Mighbdib-Ma-Syy-Fe- FA tab Take 1 tablet by mouth once daily. - miconazole (MONISTAT 7) 2 % vaginal cream Use 1 Applicator vaginally daily at bedtime. - folic acid 1 mg tablet Take 4 tablets by mouth once daily. - lamoTRIgine ER (LAMICTAL XR) 300 mg 24 hr tablet Take 1 tablet by mouth every morning. - VIT 10-IRON FUM-FOLIC ORAL Take by mouth. 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] 11/11/2013 Localized superficial swelling, mass, or lump [*11/11/2013 11/25/2013 HIGINIO positive [R76.8] 11/25/2013 Nocturia [R35.1] 01/16/2014 Dizziness [R42] 01/16/2014 Abnormal thyroid blood test [R79.89] 01/16/2014 Attention deficit hyperactivity disorder (ADHD)*04/04/2009 Seizures (HCC) [R56.9] 09/08/2023 Nicotine use disorder, F17.2 [F17.200] 11/04/2023 Malnutrition of mild degree (HCC) [E44.1] 11/04/2023 Less than 8 weeks gestation of [Z3A.0*11/05/2023 01/12/2024 Encounter for supervision of normal i*01/12/2024 Short interval between pregnancies affecting pr*01/12/2024 History of gestational diabetes in prior pregna*01/12/2024 History of polyhydramnios [Z87.59] 01/12/2024 Factor V Leiden (HCC) [D68.51] 01/12/2024 depression [F53.0] 01/12/2024 Encounter Status:Closed by CATRINA MCDUFFIE on 02/18/24 Normal [facility] PAP TESTon 01-12-2024 ADEQUACY Satisfactory for interpretation. Normal [facility] Comment on above: Order Comment: Speci men Type: FLUID SPECIMENOrdering Facility: [facility] Address: [address] [place] [address] Performed By: #### L [id number] ####[facility] LABCLIA [id number] [place] [address] [place] CASE REPORT Normal [facility] Comment on above: Order Comment: Speci men Type: FLUID SPECIMENOrdering Facility: [facility] Address: [address] [place] [address] Result Comment: Gyne cologic Cytology Report Case: [id number] Authorizing Provider: Catrina Mcduffie APRN.SURVEY TECHNOLOGIST Collected: 01/12/2024 09:15 AM Ordering Location: OB/Gynecology Received: 01/12/2024 12:35 PM First Screen: Jennifer, Yadira, CT, ASCP Rescreen: Xi Matthews Tech Specimen: Pap Test, ThinPrep, Cervix Performed By: #### L [id number] ####[facility] LABCLIA [id number] [place] [address] [place] CLINICAL HISTORY, CYTOLOGY, FOOD STOREROOM CLERK (Indicate Weeks) Normal [facility] Comment on above: Order Comment: Speci men Type: FLUID SPECIMENOrdering Facility: [facility] Address: [address] [place] [address] Performed By: #### L [id number] ####[facility] LABCLIA [id number] [place] [address] [place] CYTOLOGY PAP OTHER INT Fungal organisms morphologically consistent with Darian species. Normal [facility] Comment on above: Order Comment: Speci men Type: FLUID SPECIMENOrdering Facility: [facility] Address: [address] [place] [address] Performed By: #### L [id number] ####[facility] LABCLIA [id number] [place] [address] [place] FINAL PERFORMING LAB Normal [facility] Comment on above: Order Comment: Speci men Type: FLUID SPECIMENOrdering Facility: [facility] Address: [address] [place] [address] Result Comment: Tech nical component, compensation analyst screening performed at [facility], [address] [place], [place] [id number] CLIA# [id number] Diagnostic interpretation performed at [facility], [address] [place], [place] [address] CLIA# [id number] Victim Advocate: Robbin Valle M.D. Performed By: #### L [id number] ####[facility] LABCLIA [id number] [address] [address] [place] HPV REFLEX HPV if Atypical Normal [facility] Comment on above: Order Comment: Speci men Type: FLUID SPECIMENOrdering Facility: [facility] Address: [address] [place] [address] Performed By: #### L [id number] ####[facility] LABCLIA [id number] [place] [address] [place] INTERPRETATION, CYTOLOGY, FOOD STOREROOM CLERK Normal [facility] Comment on above: Order Comment: Speci men Type: FLUID SPECIMENOrdering Facility: [facility] Address: [address] [place] [address] Result Comment: Nega tive for intraepithelial lesion or malignancy. Performed By: #### L [id number] ####[facility] LABCLIA [id number] [place] [address] [place] LMP 09/24/2023 Normal [facility] Comment on above: Order Comment: Speci men Type: FLUID SPECIMENOrdering Facility: [facility] Address: [address] [place] [address] Performed By: #### L [id number] ####[facility] LABCLIA [id number] [address] [address] [place] PAP DISCLAIMER COMMENT The Pap Smear is a screening test for cervical cancer. False negative results occur with all screening tests, emphasizing the need for rescreening at recommended intervals, and clinical correlation. Normal [facility] Comment on above: Order Comment: Speci men Type: FLUID SPECIMENOrdering Facility: [facility] Address: [address] [place] [address] Performed By: #### L [id number] ####[facility] LABCLIA [id number] [place] [id number] [place] PAP SUPERVISOR FELTING COMMENT This specimen has been analyzed by the ThinPrep Imaging System, an automated imaging and review system, which assists the laboratory in evaluating cells on ThinPrep Pap tests. Following automated imaging, selected iverson from every slide are reviewed by a compensation analyst. Normal [facility] Comment on above: Order Comment: Speci men Type: FLUID SPECIMENOrdering Facility: [facility] Address: [address] [place] [address] Performed By: #### L [id number] ####[facility] LABCLIA [id number] [address] OF [place] Marek 01-11-2024 ALEXN Telephone (OBGYWM) ---- BERTIN MCDUFFIE ([id number]) 1995 F Date Time Provider Department 01/11/24 CATRINA MCDUFFIE During your visit today, we recorded the following information about you: Bhakti Schroeder RN 01/11/2024 10:35 AM Signed Left message for patient to return phone call to complete nurse intake questions for her upcoming appointment. Patient has an appointment with Catrina Mcduffie for NOB appointment tomorrow. She had previously declined PNOB-not sure if it was due to timing etc. Please let her know if she is available, I am here most of day to assist completing nurse intake Bhakti Schroeder RN 01/11/2024 1:33 PM Signed Patient did agree to PNOB appointment. She is transferring care from [facility]. She states they changed EDC to calculate her at 14w2d today .She reports she had 2 previous visits with ultrasound-no labwork. Last visit end of November . I have given her our fax number to have her records transferred here prior to being seen tomorrow. States she has noted pelvic pain for 3-4 weeks. It lasts 10-30 minutes and occurs every other day. She states the pain can get to an 8 on the pain scale. She states she has reported this to her previous doctor and theyseemed unconcerned . She states previous uktrasound by [facility] showed IUP. Denies any bleeding this but does note some greenish mucousyesterday. Ulrich note itching, irritation x 2 weeks but denies any odor. She also notes some shortness of breath at times that is not related to activity-sometimes occurs at rest. She does note some heart racing occasionally. Shortness of breath lasts 2-3 minutes about 2-3 times a day. Denies any chest pain. She dies not believe this is due to depression and anxiety. History of abnormal thyroid levels as teenager but reports normal thyroid labs with . Patient also scored high on [place] depression/anxiety scales. Currently sees Belgica Chinchilla at [facility] in [place] weekly. States she had suicidal thoughts in past nut none since 6-7 months ago. Had 2 suicidal attempts at age 18. Discussed increased risks of depression during and and importance of reporting the development or worsening of symptoms should they occur.Hx PP depression after all previous pregnancies. Aware of suicidal hotline number. I have discussed with patient that if she develops any bleeding or pain increases, SOB or heart racing increases she needs to go to ER and seek immediate treatment. I have asked her to call her PCP to report SOB and heart racing. Call only if further advice. Pt does have NOB appointment tomorrow with RM Allergies As of Date: 01/11/2024 (No Known Allergies) Date Reviewed: 11/03/2023 Reviewed by: Mel Grace, RN - Fully Assessed Reason for Visit: Future Appointment [256] Prescriptions as of 01/11/2024 - folic acid 1 mg tablet Take 4 tablets by mouth once daily. - sertraline (ZOLOFT) 50 mg tablet Take 1 tablet by mouth once daily - lamoTRIgine ER (LAMICTAL XR) 300 mg 24 hr tablet Take 1 tablet by mouth every morning. - VIT 10-IRON FUM-FOLIC ORAL Take by mouth. 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 Localized superficial swelling, mass, or lump [*11/11/2013 11/25/2013 HIGINIO positive [R76.8] 11/25/2013 Nocturia [R35.1] 01/16/2014 Dizziness [R42] 01/16/2014 Abnormal thyroid blood test [R79.89] 01/16/2014 Attention deficit hyperactivity disorder (ADHD)*04/04/2009 Seizures (HCC) [R56.9] 09/08/2023 Nicotine use disorder, F17.2 [F17.200] 11/04/2023 Malnutrition of mild degree (HCC) [E44.1] 11/04/2023 Less than 8 weeks gestation of [Z3A.0*11/05/2023 Encounter Status:Closed by LILIYA SORIANO on 01/11/24 [facility] CNDSon 11-05-2023 [facility] HNO ID: [id number] Author: OZ TERRAZAS MD Service: Neurology Adult Epilepsy Author Type: Nurse Practitioner Type: Discharge Summary Filed: 11/06/2023 10:09 Note Text: ---- Attestation signed by Oz Terrazas MD at 11/06/2023 10:09 AM [facility] ATTENDING NOTE Date of Service: November 05, 2023 [facility] STAFF PHYSICIAN NOTE OF PERSONAL INVOLVEMENT IN CARE Patient was seen by me on rounds on this date of discharge. I have reviewed the discharge note obtained and documented by the nurse practitioner as above. Please see my separate phase report for details of history, EEG interpretation, and overall impression. Oz Terrazas MD Staff Physician [facility] Office phone: [phone] ---- DISCHARGE SUMMARY PATIENT NAME: Bertin Mcduffie ADMISSION DATE: 11/03/2023 DISCHARGE DATE: 11/05/2023 DATE OF : 1995 Code Status: Not on file Admitting Service: Epilepsy Attending Physician: Oz Terrazas MD Highest Readmission Risk Score: 8 The 30 day readmissions risk score is derived from an internally validated risk model which evaluates patient level characteristics, utilization history, medication orders and lab results up until the day of discharge. Patients with a score of 40 or above are considered highest risk for readmission. Specific patient level drivers will be listed at the bottom of the summary. Reason for Hospitalization: Principal Problem: Seizures (HCC) (POA: Yes) Active Problems: Nicotine use disorder, F17.2 (POA: Yes) Malnutrition of mild degree (HCC) (POA: Yes) Less than 8 weeks gestation of (POA: Yes) Malnutrition Diagnosis supported by Registered Dietitian:Mild Protein-Calorie Malnutrition Based on: Insufficient Energy Intake Assessment: I have reviewed the result of the malnutrition assessment and plan and agree Plan: Diet Resolved Problems: * No resolved hospital problems. * Principal Procedures: Continuous Video EEG Medication on Admission: Current Outpatient Medications on File Prior to Encounter Medication Sig sertraline (ZOLOFT) 50 mg tablet Take 1 tablet by mouth once daily lamoTRIgine ER (LAMICTAL XR) 300 mg 24 hr tablet Take 1 tablet by mouth every morning. VIT 10-IRON FUM-FOLIC ORAL Take by mouth. Allergies: Patient has no known allergies. Hospital Course: Bertin Mcduffie is a 27 year old female who presented with recurrent events of staring without JASIEL, as well as episodes of passing out preceded by an aura for the last 10 years. No history of convulsions. Prior records of MRI brain reported as normal. Prior ambulatory EEg captured staring events, w/out JASIEL with no EEG change, but no episodes with JASIEL/passing out captured She is on LTG XR 300 mg daily and continues to have weekly staring spells and episodes of passing out 1-2 times per year. Last occurred in February of 2023. Currently on LTG XR 300 mg daily. Also reported to be ~5 weeks. HCG positive. Bertin presented to the [facility] on 11/03/2023 for diagnosis. Medications were reduced during the admission. Patient noted to have no events captured. Interictal findings: none. Please see separate video-EEG report for details. Patient requested to go home early be with her children. Prior to discharge, antiepileptic medications were continued at home dosing without changes. He will follow-up after discharge with Dr. Terrazas in 6 months. She will check LTG levels monthly during AND start folic acid 4 mg once daily. Activity precautions were reiterated. Transitions of Care Critical Issues: LAB MONITORING NEEDED: monthly LTG levels during SPECIALIST FOLLOW-UP: Dr. Terrazas, [employer] MEDICATION CHANGES: folic acid 4 mg added LABS AND PROCEDURES PENDING AT DISCHARGE: No pending results. Consulting Teams During Hospitalization: None Treatment Team: Attending Provider: Oz Terrazas MD Patient Condition @ Discharge: Stable Discharge Disposition: Home with Self Care Discharge Physical Exam: VITAL SIGNS: BP 92/54 Pulse 70 Temp 37 ?C (98.6 ?F) (Oral) Resp 21 Ht 162.6 cm (5' 4) Wt 66.8 kg (147 lb 4.3 oz) LMP (LMP Unknown) SpO2 98% BMI 25.28 kg/m? GENERAL: Alert, no distress, cooperative NEURO: Grossly normal cognition, motor function, and cranial nerves III-XII Information Provided to Patient: Hospital stay and summary Medication Instructions Activity Restrictions Follow UP DISCHARGE INSTRUCTIONS: Diet: Normal Activity: No Driving. Wound/Surgical Site Care: None Discharge Medications: Medication List START taking these medications folic acid 1 mg tablet Take 4 tablets by mouth once daily. CONTINUE taking these medications lamoTRIgine ER 300 mg 24 hr tablet Commonly kn (more content not included)... Normal [facility] HCG Preg Ur Qlon 11-04-2023 HCG ( test) Ql (U) Positive Abnormal Negative [facility] Comment on above: Order Comment: Speci men Type: URINE SPECIMENOrdering Facility: [facility] Address: [address] [place] [address] Result Comment: This test is intended to aid in the early detection of . Very dilute urine samples, as indicated by a low specific gravity, may not contain instruments sales representative levels of hCG. This test detects intact hCG only. This test does not reliably detect hCG degradation products, including free-beta subunit and beta-core fragment. Therefore, this test may show reduced reactivity in urine after 8 weeks gestation. A number of conditions other than , including trophoblastic disease and certain non-trophoblastic neoplasms cause elevated levels of hCG. As with any assay employing mouse antibodies, the possibility exists for interference by human anti-mouse antibodies (HAMA) in the specimen. The test provides a presumptive diagnosis for . Performed By: #### 2 106-3 ####[facility]ORY[facility]IA [id number] [place] [id number] [facility] NUTRITIONon 11-04-2023 NUTRITION HNO ID: [id number] Author: DANICA BECKFORD RD Service: Nutrition Therapy Author Type: Registered Dietitian Type: Nutrition Filed: 11/04/2023 12:48 Note Text: INITIAL ASSESSMENT SERVICE DATE: 11/04/2023 SERVICE TIME: 1050 Nutrition Assessment: Recommended Malnutrition Diagnosis: Mild Protein-Calorie Malnutrition In the context of: Chronic Illness or Injury Based on: Insufficient Energy Intake Nutrition Diagnosis: Problem: Suboptimal protein/energy intake Related to: Inability to consume sufficient nutrients As evidenced by: Medical condition, Patient/family self-report, Weight loss Estimated kilocalorie needs: 1375-1650kcals + 450kcals for Calorie Calculation Method: 25-30 kcals/kg Estimated protein needs (grams): 66-82gms Grams protein determined by: 1.2 - 1.5 g/kg Care Plan: Continue current diet Monitor for needs as dislikes supplements ? GI work up as OP Monitor and Evaluation: Meet greater than 75% of estimated needs, Monitor bowel function, Monitor fluid/electrolyte balance, Monitor labs, I/Os, vital signs, weight HPI: 27 yr old female ~ 5 wks admitted for diagnostic EEG monitoring of seizures. Intake History: Nutrition Intake Prior to Admission: Less than 75% estimated energy needs greater than or equal to 1 month. Pt chronically with no appetite. Only able to eat with THC use. If she forces herself to eat she's in the bathroom all day. Conflicting information in that she's adamant that she wants to eat more to gain wt, however, has refused certain meds in that past d/t potential wt gain. Diet Orders (From admission, onward) Start Ordered 11/03/23 1630 DIET REGULAR START NOW 11/03/23 1624 Anthropometrics: Height: 162.6 cm (5' 4) Weight: 66.8 kg (147 lb 4.3 oz) Dosing Weight: 55 kg (121 lb 4.1 oz) Body mass index is 25.28 kg/m?. Weight change percentage over time: extreme fluctuations per pt. 3% X 1 month not significant, however, concerning with and Weight Change: Not clinically signficant weight loss Physical Exam: Subcutaneous fat loss: No fat loss Muscle loss: No muscle loss Potential micronutrient deficiency: No deficiency identified Edema/Ascites: No edema, No ascites Last 10 Encounter Wt Readings: Date: Wt: 10/29/2023 66.8 kg (147 lb 4.3 oz) 10/27/2023 65 kg (143 lb 4.8 oz) 09/14/2023 69.1 kg (152 lb 6.4 oz); office visit 08/17/2023 63.5 kg (140 lb) 03/30/2023 72.6 kg (160 lb) 03/11/2023 76.5 kg (168 lb 9.6 oz) 02/04/2023 80.2 kg (176 lb 12.8 oz) 12/19/2022 86.1 kg (189 lb 12.8 oz) 09/18/2022 98.1 kg (216 lb 3.2 oz) 08/04/2022 96.6 kg (213 lb) GI Symptoms: Anorexia Functional Status: No Change Potential Signs of Inflammation: No identifiable sources MNT Billing: $ Initial Assessment: 1-15 minutes SIGNATURE: Danica Beckford RD PATIENT NAME: Bertin Mcduffie DATE: November 04, 2023 TIME: 8:13 AM Normal [facility] TOXICOLOGY SCREEN, ROUTINE U RINEon 11-04-2023 Amphetamines Confirm (U) [Mass/Vol] Negative Normal Negative [facility] Comment on above: Order Comment: Speci men Type: URINE SPECIMEN Ordering Facility: [facility] Address: [facility] [place] [address] Result Comment: Cuto ff threshold at 1000 ng/mL. Performed By: #### U TOX2 #### [facility] CLIA [id number] [address] BARBITURATES, URINE Negative Normal Negative [facility] Comment on above: Order Comment: Speci men Type: URINE SPECIMEN Ordering Facility: [facility] Address: [address] [place] [address] Result Comment: Cuto ff threshold at 200 ng/mL. Performed By: #### U TOX2 #### [facility] CLIA [id number] [address] [place] BENZODIAZEPINES, UR Negative Normal Negative [facility] Comment on above: Order Comment: Speci men Type: URINE SPECIMEN Ordering Facility: [facility] Address: [address] [place] [address] Result Comment: Cuto ff threshold at 200 ng/mL. Performed By: #### U TOX2 #### [facility] CLIA [id number] [address] OF [facility] Cannabinoids Screen Ql (U) Positive Abnormal Negative [facility] Comment on above: Order Comment: Speci men Type: URINE SPECIMEN Ordering Facility: [facility] Address: [address] [place] [address] Result Comment: Cuto ff threshold at 50 ng/mL. Performed By: #### U TOX2 #### [facility] CLIA [id number] [address] OF [place] Cocaine Ql (U) Negative Normal Negative [facility] Comment on above: Order Comment: Speci men Type: URINE SPECIMEN Ordering Facility: [facility] Address: [address] [place] [address] Result Comment: Cuto ff threshold at 300 ng/mL. Performed By: #### U TOX2 #### [facility] CLIA [id number] [address] OF [place] Ethanol (U) [Mass/Vol] <11 Normal <11 [facility] Comment on above: Order Comment: Speci men Type: URINE SPECIMEN Ordering Facility: [facility] Address: [address] [place] [address] Performed By: #### U TOX2 #### [facility] CLIA [id number] [address] Opiates Screen Ql (U) Negative Normal Negative [facility] Comment on above: Order Comment: Speci men Type: URINE SPECIMEN Ordering Facility: [facility] Address: [address] [place] [address] Result Comment: Cuto ff threshold at 300 ng/mL. Performed By: #### U TOX2 #### [facility] CLIA [id number] [address] oxyCODONE cutoff Screen (U) [Mass/Vol] Negative Normal Negative [facility] Comment on above: Order Comment: Speci men Type: URINE SPECIMEN Ordering Facility: [facility] Address: [address] [place] [address] Result Comment: Cuto ff threshold at 100 ng/mL. Performed By: #### U TOX2 #### [facility] CLIA [id number] [address] Phencyclidine Ql (U) Negative Normal Negative [facility] Comment on above: Order Comment: Speci men Type: URINE SPECIMEN Ordering Facility: [facility] Address: [address] [place] [address] Result Comment: Cuto ff threshold at 25 ng/mL. Performed By: #### U TOX2 #### [facility] CLIA [id number] [address] CBC W Auto Differential pane l (Bld)on 11-03-2023 Basophils (Bld) [#/Vol] 0.04 10*3/uL Normal <0.11 [facility] Comment on above: Order Comment: Speci men Type: BLOOD SPECIMEN Ordering Facility: [facility] Address: [address] [place] [address] Performed By: #### 5 7021-8 #### [facility] CLIA [id number] [address] Basophils/100 WBC (Bld) 0.5 % Normal [facility] Comment on above: Order Comment: Speci men Type: BLOOD SPECIMEN Ordering Facility: [facility] Address: [address] [place] [address] Performed By: #### 5 7021-8 #### [facility] CLIA [id number] [address] Differential cell count method Nom (Bld) Auto Normal [facility] Comment on above: Order Comment: Speci men Type: BLOOD SPECIMEN Ordering Facility: [facility] Address: [address] [place] [address] Performed By: #### 5 7021-8 #### [facility] CLIA [id number] [address] OF [place] Eosinophils (Bld) [#/Vol] 0.15 10*3/uL Normal <0.46 [facility] Comment on above: Order Comment: Speci men Type: BLOOD SPECIMEN Ordering Facility: [facility] Address: [address] [place] [address] Performed By: #### 5 7021-8 #### [facility] CLIA [id number] [address] Eosinophils/100 WBC (Bld) 2.0 % Normal [facility] Comment on above: Order Comment: Speci men Type: BLOOD SPECIMEN Ordering Facility: [facility] Address: [address] [place] [address] Performed By: #### 5 7021-8 #### [facility] CLIA [id number] [address] Erythrocyte distribution width (RBC) [Ratio] 13.1 % Normal 11.5-15.0 [facility] Comment on above: Order Comment: Speci men Type: BLOOD SPECIMEN Ordering Facility: [facility] Address: [facility] [place] [address] Performed By: #### 5 7021-8 #### [facility] CLIA [id number] [address] OF [facility] Hematocrit (Bld) [Volume fraction] 39.1 % Normal 36.0-46.0 [facility] Comment on above: Order Comment: Speci men Type: BLOOD SPECIMEN Ordering Facility: [facility] Address: [address] [place] [address] Performed By: #### 5 7021-8 #### [facility] CLIA [id number] [address] [place] Hemoglobin (Bld) [Mass/Vol] 12.6 g/dL Normal 11.5-15.5 [facility] Comment on above: Order Comment: Speci men Type: BLOOD SPECIMEN Ordering Facility: [facility] Address: [address] [place] [address] Performed By: #### 5 7021-8 #### [facility] CLIA [id number] [address] OF [place] Immature granulocytes (Bld) [#/Vol] 0.04 10*3/uL Normal <0.10 [facility] Comment on above: Order Comment: Speci men Type: BLOOD SPECIMEN Ordering Facility: [facility] Address: [address] [place] [address] Performed By: #### 5 7021-8 #### [facility] CLIA [id number] [address] OF [place] Immature granulocytes/100 WBC (Bld) 0.5 % Normal [facility] Comment on above: Order Comment: Speci men Type: BLOOD SPECIMEN Ordering Facility: [facility] Address: [address] [place] [address] Performed By: #### 5 7021-8 #### [facility] CLIA [id number] [address] OF [place] Lymphocytes (Bld) [#/Vol] 1.90 10*3/uL Normal 1.00-4.00 [facility] Comment on above: Order Comment: Speci men Type: BLOOD SPECIMEN Ordering Facility: [facility] Address: [address] [place] [address] Performed By: #### 5 7021-8 #### [facility] CLIA [id number] [address] Lymphocytes/100 WBC (Bld) 25.4 % Normal [facility] Comment on above: Order Comment: Speci men Type: BLOOD SPECIMEN Ordering Facility: [facility] Address: [address] [place] [address] Performed By: #### 5 7021-8 #### [facility] CLIA [id number] [address] MCH (RBC) [Entitic mass] 28.3 pg Normal 26.0-34.0 [facility] Comment on above: Order Comment: Speci men Type: BLOOD SPECIMEN Ordering Facility: [facility] Address: [address] [place] [address] Performed By: #### 5 7021-8 #### [facility] CLIA [id number] [address] MCHC (RBC) [Mass/Vol] 32.2 g/dL Normal 30.5-36.0 [facility] Comment on above: Order Comment: Speci men Type: BLOOD SPECIMEN Ordering Facility: [facility] Address: [address] [place] [address] Performed By: #### 5 7021-8 #### [facility] CLIA [id number] [address] MCV (RBC) [Entitic vol] 87.7 fL Normal 80.0-100.0 [facility] Comment on above: Order Comment: Speci men Type: BLOOD SPECIMEN Ordering Facility: [facility] Address: [address] [place] [address] Performed By: #### 5 7021-8 #### [facility] CLIA [id number] [address] Monocytes (Bld) [#/Vol] 0.57 10*3/uL Normal <0.87 [facility] Comment on above: Order Comment: Speci men Type: BLOOD SPECIMEN Ordering Facility: [facility] Address: [address] [place] [address] Performed By: #### 5 7021-8 #### [facility] CLIA [id number] [address] [place] Monocytes/100 WBC (Bld) 7.6 % Normal [facility] Comment on above: Order Comment: Speci men Type: BLOOD SPECIMEN Ordering Facility: [facility] Address: [address] [place] [address] Performed By: #### 5 7021-8 #### [facility] CLIA [id number] [address] [place] Neutrophils (Bld) [#/Vol] 4.78 10*3/uL Normal 1.45-7.50 [facility] Comment on above: Order Comment: Speci men Type: BLOOD SPECIMEN Ordering Facility: [facility] Address: [address] [place] [address] Performed By: #### 5 7021-8 #### [facility] CLIA [id number] [address] OF [place] Neutrophils/100 WBC (Bld) 64.0 % Normal [facility] Comment on above: Order Comment: Speci men Type: BLOOD SPECIMEN Ordering Facility: [facility] Address: [address] [place] [address] Performed By: #### 5 7021-8 #### [facility] CLIA [id number] [address] [place] Nucleated RBC (Bld) [#/Vol] 10*3/uL Normal <0.01 [facility] Comment on above: Order Comment: Speci men Type: BLOOD SPECIMEN Ordering Facility: [facility] Address: [address] [place] [address] Performed By: #### 5 7021-8 #### [facility] CLIA [id number] 1 [place] [address] [place] Nucleated RBC/100 WBC (Bld) [Ratio] 0.0 /100 WBC Normal [facility] Comment on above: Order Comment: Speci men Type: BLOOD SPECIMEN Ordering Facility: [facility] Address: [address] [place] [address] Performed By: #### 5 7021-8 #### [facility] CLIA [id number] 1 [place] [address] [place] Platelet mean volume (Bld) [Entitic vol] 10.7 fL Normal 9.0-12.7 [facility] Comment on above: Order Comment: Speci men Type: BLOOD SPECIMEN Ordering Facility: [facility] Address: [address] [place] [address] Performed By: #### 5 7021-8 #### [facility] CLIA [id number] 1 [place] [address] [place] Platelets (Bld) [#/Vol] 395 10*3/uL Normal 150-400 [facility] Comment on above: Order Comment: Speci men Type: BLOOD SPECIMEN Ordering Facility: [facility] Address: [address] [place] [address] Performed By: #### 5 7021-8 #### [facility] CLIA [id number] 1 [place] [address] [place] RBC (Bld) [#/Vol] 4.46 10*6/uL Normal 3.90-5.20 [facility] Comment on above: Order Comment: Speci men Type: BLOOD SPECIMEN Ordering Facility: [facility] Address: [address] [place] [address] Performed By: #### 5 7021-8 #### [facility] CLIA [id number] 1 [place] [address] [place] WBC (Bld) [#/Vol] 7.48 10*3/uL Normal 3.70-11.00 [facility] Comment on above: Order Comment: Speci men Type: BLOOD SPECIMEN Ordering Facility: [facility] Address: [address] [place] [address] Performed By: #### 5 7021-8 #### [facility] CLIA [id number] [address] OF [facility] Comprehensive metabolic 2000 panelon 11-03-2023 Albumin [Mass/Vol] 4.2 g/dL Normal 3.9-4.9 [facility] Comment on above: Order Comment: Speci men Type: BLOOD SPECIMEN Ordering Facility: [facility] Address: [address] [place] [address] Performed By: #### 2 4323-8 #### [facility] CLIA [id number] [address] OF [facility] ALP [Catalytic activity/Vol] 53 U/L Normal 34-123 [facility] Comment on above: Order Comment: Speci men Type: BLOOD SPECIMEN Ordering Facility: [facility] Address: [address] [place] [address] Performed By: #### 2 4323-8 #### [facility] CLIA [id number] [address] ALT With P-5'-P [Catalytic activity/Vol] 13 U/L Normal 7-38 [facility] Comment on above: Order Comment: Speci men Type: BLOOD SPECIMEN Ordering Facility: [facility] Address: [address] [place] [address] Performed By: #### 2 4323-8 #### [facility] CLIA [id number] [address] Anion gap [Moles/Vol] 11 mmol/L Normal 9-18 [facility] Comment on above: Order Comment: Speci men Type: BLOOD SPECIMEN [facility] [facility] Address: [address] [place] [address] Performed By: #### 2 4323-8 #### [facility] CLIA [id number] [address] AST With P-5'-P [Catalytic activity/Vol] 15 U/L Normal 13-35 [facility] Comment on above: Order Comment: Speci men Type: BLOOD SPECIMEN Ordering Facility: [facility] Address: [address] [place] [address] Performed By: #### 2 4323-8 #### [facility] CLIA [id number] [address] [place] Bilirubin [Mass/Vol] 0.3 mg/dL Normal 0.2-1.3 [facility] Comment on above: Order Comment: Speci men Type: BLOOD SPECIMEN Ordering Facility: [facility] Address: [address] [place] [address] Performed By: #### 2 4323-8 #### [facility] CLIA [id number] [address] [place] Calcium [Mass/Vol] 8.9 mg/dL Normal 8.5-10.2 [facility] Comment on above: Order Comment: Speci men Type: BLOOD SPECIMEN Ordering Facility: [facility] Address: [address] [place] [address] Performed By: #### 2 4323-8 #### [facility] CLIA [id number] [address] [place] Chloride [Moles/Vol] 102 mmol/L Normal 97-105 [facility] Comment on above: Order Comment: Speci men Type: BLOOD SPECIMEN Ordering Facility: [facility] Address: [address] [place] [address] Performed By: #### 2 4323-8 #### [facility] CLIA [id number] [address] [place] CO2 [Moles/Vol] 21 mmol/L Low 22-30 [facility] Comment on above: Order Comment: Speci men Type: BLOOD SPECIMEN Ordering Facility: [facility] Address: [address] [place] [address] Performed By: #### 2 4323-8 #### [facility] CLIA [id number] [address] [place] Creatinine [Mass/Vol] 0.51 mg/dL Low 0.58-0.96 [facility] Comment on above: Order Comment: Speci men Type: BLOOD SPECIMEN Ordering Facility: [facility] Address: [address] [place] [address] Performed By: #### 2 4323-8 #### [facility] CLIA [id number] [address] [place] Creatinine and Glomerular filtration rate.predicted panel (S/P/Bld) 132 mL/min/1.73m??? Normal >=60 [facility] Comment on above: Order Comment: Miguel bell Type: BLOOD SPECIMEN Ordering Facility: [facility] Address: [address] [place] [address] Result Comment: Evelyne mated Glomerular Filtration Rate (eGFR) is calculated using the 2020 CKD-EPI creatinine equation. This equation utilizes serum creatinine, sex, and age as parameters. The creatinine assay has traceable calibration to isotope dilution-mass spectrometry. Refer to KDIGO guidelines for clinical interpretation. In patients with unstable renal function, e.g. those with acute kidney injury, the eGFR may not accurately reflect actual GFR. Performed By: #### 2 4323-8 #### [facility] CLIA [id number] [address] [place] [address] [place] Glucose [Mass/Vol] 72 mg/dL Low 74-99 [facility] Comment on above: Order Comment: Miguel bell Type: BLOOD SPECIMEN Ordering Facility: [facility] Address: [address] [place] [address] Result Comment: The English Diabetes Association (ADA) provides guidance for cutoff values for fasting glucose and random glucose. The ADA defines fasting as no caloric intake for at least 8 hours. Fasting plasma glucose results between 100 to 125 mg/dL indicate increased risk for diabetes (prediabetes). Fasting plasma glucose results greater than or equal to 126 mg/dL meet the criteria for diagnosis of diabetes. In the absence of unequivocal hyperglycemia, results should be confirmed by repeat testing. In a patient with classic symptoms of hyperglycemia or hyperglycemic crisis, random plasma glucose results greater than or equal to 200 mg/dL meet the criteria for diagnosis of diabetes. Reference: Standards of Medical Care in Diabetes 2016, English Diabetes Association. Diabetes Care. 2016.39(Suppl 1). Performed By: #### 2 4323-8 #### [facility] CLIA [id number] [address] Potassium [Moles/Vol] 3.5 mmol/L Low 3.7-5.1 [facility] Comment on above: Order Comment: Speci men Type: BLOOD SPECIMEN Ordering Facility: [facility] Address: [address] [place] [address] Performed By: #### 2 4323-8 #### [facility] CLIA [id number] [address] Protein [Mass/Vol] 6.7 g/dL Normal 6.3-8.0 [facility] Comment on above: Order Comment: Speci men Type: BLOOD SPECIMEN Ordering Facility: [facility] Address: [address] [place] [address] Performed By: #### 2 4323-8 #### [facility] CLIA [id number] [address] Sodium [Moles/Vol] 134 mmol/L Low 136-144 [facility] Comment on above: Order Comment: Speci men Type: BLOOD SPECIMEN Ordering Facility: [facility] Address: [address] [place] [address] Performed By: #### 2 4323-8 #### [facility] CLIA [id number] [address] Urea nitrogen [Mass/Vol] 11 mg/dL Normal 7-21 [facility] Comment on above: Order Comment: Speci men Type: BLOOD SPECIMEN Ordering Facility: [facility] Address: [address] [place] [address] Performed By: #### 2 4323-8 #### [facility] CLIA [id number] [address] HISTORY PHYSICALon HISTORY PHYSICAL HNO ID: [id number] Author: OZ TERRAZAS MD Service: Neurology Adult Epilepsy Author Type: Nurse Practitioner Type: H&P Filed: 11/04/2023 13:40 Note Text: ---- Attestation signed by Oz Terrazas MD at 11/04/2023 1:40 PM --- EPILEPSY CENTER ATTENDING NOTE [facility] Epilepsy Monitoring Unit Progress Note Date of Service: November 04, 2023 [facility] STAFF PHYSICIAN NOTE OF PERSONAL INVOLVEMENT IN CARE Patient was interviewed and examined by me on separate attending rounds this morning with nurse practitioner, Ashley Carlson CNP. I have reviewed the history, exam, diagnosis, and plan obtained and documented by the nurse practitioner as above. I performed my own ddsf-vz-dzzo assessment and personally participated in the cruz components. The following comments revise or confirm these. I have discussed the case and management of the patient's care with the care team. Clinical overnight update: No episodes. No complaints. She just discovered that she is approximately 4-5 weeks on urine test. Pertinent exam: Normal neurological examination Data reviewed: Continuous video EEG recording was personally reviewed by myself and the results of the evaluation to date are summarized below. Interictal findings: none Ictal findings: none IMPRESSION: 27-year-old woman presents to the EMU for evaluation of recurrent events of staring preceded by an aura. No history of convulsions. History is suggestive of focal epilepsy. Prior records of MRI brain show it is normal. Exam is normal. She had an EEG in [address] with unknown results. She had an episode on 03/11/23 after missing two days of medication. She continues to have seizures 1-2 times per year despite compliance. She has depression and anxiety without SI. No episodes in sleep. No memory issues. Discussed EMU admission and would like to pursue it. She attempted EMU evaluation in August 2023 but left early due to needing to care for her baby. She is returning for completion of the evaluation. During the last evaluation, no typical events were captured and interictal EEG showed right parieto-occipital sharp waves. Primary epileptologist: Dr. Terrazas Admit Date: 11/02 AEDs Home: LTG ER 300 mg once daily Here: 11/02: stopped LTG ER 11/03: continue to hold LTG ER PLAN: Continuous video-EEG monitoring continues Holding home anti-epileptic medications Admission AED levels pending Seizure precautions Rescue plan in place: 2mg of lorazepam (Ativan) IV as needed for prolonged motor epileptic seizure greater than 3 minutes and or 3rd motor epileptic seizure within 8 hours. Discharge planning pending capturing episodes of concern Follow-up after discharge with Dr. Terrazas The treatment plan was discussed in detail with the patient. Time for questions was given and answers were discussed. The patient agreed with the treatment plan. Oz Terrazas MD Staff Physician [facility] Epilepsy Center Personal Pager and Cell Office: [phone] For urgent EEG review, call the Epilepsy Continuous Monitoring Unit (ECMU) at [facility] [phone] or [phone]. For overnight issues, 7pm to 7am, [place] [phone]. For in house night coverage of emergencies, call NPC[facility] pager [phone]. ---- NEURO EPILEPSY ADMIT NOTE SERVICE DATE: 11/03/2023 SERVICE TIME: 4:00 PM NIGHT AND WEEKEND COVERAGE: 7 am - 7 pm please page the [place] [facility] Staff java application engineer (EPI EMU Service: [facility] Neurology) 7 pm - 7 am, please page [phone] to contact the epilepsy provider java application engineer (EPI On-Call Night) ATTENDING PHYSICIAN: Dr. Terrazas [facility] UNIT: [address] - [facility] Adult Epilepsy Monitoring Unit (EMU) SERVICE: Adult Epilepsy Subjective CHIEF COMPLAINT: seizures PRESENT ILLNESS: This is a 27 year old right handed female who presents with a chief complaint of seizures admitted for diagnostic Video EEG. She established care with Dr. Terrazas in March of 2023. Portions of his note were copied, italicized, and reviewed with the patient. SEIZURE HISTORY: Seizures started at age 17 years. They were uncontrolled and one times she had three in a row. She denied any family history of seizures, TBI, meningitis, or febrile seizures. She continues to have seizures. The last three were 03/11/23, December 2021, and 2-3 years before 2021. The last one on 03/11/23 was attributed to missing two days of medications. Her has witnessed one of them. She will look like a zombie staring. She will fall and is motionless. No convulsion. She is unresponsive when stimulated. It will last 5-10 minutes. She has no recall afterward. No TB or UI. She has an aur (more content not included)... Normal [facility] lamoTRIgine SerPl-ncon lamoTRIgine [Mass/Vol] <0.5 Low 1.0-13.0 [facility] Comment on above: Order Comment: Speci men Type: BLOOD SPECIMEN Ordering Facility: [facility] Address: [address] [place] [address] Result Comment: This test was developed and its performance characteristics determined by [facility]'s [facility] [place] ([facility]). It has not been cleared or approved by the FDA. [facility] is regulated under CLIA as qualified to perform high-complexity testing. This test is used for clinical purposes. It should not be regarded as investigational or for research. Performed By: #### 6 948-4 #### [facility] CLIA [id number] [address] [place] [address] [place] Bacteria Ur Culton 4 Bacteria identified Cx Nom (U) ORGANISM ID: 1 10,000 -<50,000 CFU/ml Normal urogenital sera Normal [facility] Comment on above: Performed By: #### 6 30-4 ####[facility] [id number] [address] [address] [place] CNOVon 10-27-2023 CNOV Office Visit ([facility]) ---- BERTIN MCDUFFIE ([id number]) 1995 F Date Time Provider Department 10/27/23 12:45 PM SONAM TUCKER [facility] During your visit today, we recorded the following information about you: Temperature Pulse Respiration Blood pressure 99 degrees 106/minute 18/minute 128/70 Weight 65 kg Sonam Tucker APRN.[facility] 10/27/2023 1:50 PM Addendum ASSESSMENT/PLAN: 1. Sore throat - ICD9: 462, ICD10: J02.9 (primary diagnosis) - Group A strep molecular testing positive - STREP A MOLECULAR (POC) 2. Irregular periods - ICD9: 626.4, ICD10: N92.6 - HCG QUAL UR B/O-positive in office. 3. Dysuria - ICD9: 788.1, ICD10: R30.0 acute - UA positive for tramaine esterase, proteinuria, and ketones - Send urine for culture - Patient education for prevention given - UA DIP, URINE (POC) 4. Strep throat - ICD9: 034.0, ICD10: J02.0 - Amoxicillin for 10 days. - Discussed supportive care treatment with fluids, rest and analgesia. - The patient may also use warm salt water gargles, throat lozenges and/or OTC throat spray as needed. - Contagious dz precautions discussed- including considered contagious until on antibiotics for 24 hours - Call back if drooling, increased temperature, symptoms of dehydration and/or still sick in one week - AMOXICILLIN 500 MG CAPSULE 5. test positive - ICD9: V72.42, ICD10: Z32.01 - follow up with IMMIGRATION CASE MANAGER for first appointment. 6. Otalgia of left ear - ICD9: 388.70, ICD10: H92.02 -ear exam is normal today. - Follow-up with your PCP in 3-5 days if symptoms have not improved or sooner if symptoms worsen - Discussed red flags and need for immediate medical evaluation if any occur. - Discussed supportive care treatment with fluids, rest and analgesia. - Discussed expected course of illness Sonam Tucker APRN.Sonam Bernal APRN.CNP 10/27/2023 1:58 PM Signed Subjective HPI Bertin Mcduffie is a 27 year old female who presents with 2 days of feeling light headed, off balance, headache, sore throat, chills, cold sweats, left ear pain, sharp intermittent pains in her joints and ribs, and dysuria. She has not had a fever at home. She believes LMP was one month ago, not sure, as periods have always been irregular. She did a test at home a week ago and it was negative. States she has some dysuria but only notices this when she gets out of the shower. Denies nausea or vomiting. Review of Systems Constitutional: Positive for chills. Negative for fever. HENT: Positive for congestion, ear pain (left) and sore throat. Respiratory: Negative for cough. Cardiovascular: Negative for chest pain. Genitourinary: Positive for dysuria. Musculoskeletal: Positive for myalgias. Neurological: Positive for dizziness, weakness and headaches. Negative for focal weakness. BP 128/70 Pulse 106 Temp 37.2 ?C (99 ?F) Resp 18 Wt 65 kg (143 lb 4.8 oz) LMP (LMP Unknown) SpO2 98% BMI 23.85 kg/m? PAST MEDICAL HISTORY Diagnosis Date Depression with anxiety Seizures (HCC) 06/15/2012 Seizures ([facility]) 09/08/2023 No past surgical history on file. ALLERGIES Patient has no known allergies. MEDICATIONS sertraline (ZOLOFT) 50 mg tablet Take 1 tablet by mouth once daily cyclobenzaprine (FLEXERIL) 10 mg tablet Take 1 tablet by mouth three times a day as needed for muscle spasm. lamoTRIgine ER (LAMICTAL XR) 300 mg 24 hr tablet Take 1 tablet by mouth every morning. amoxicillin (AMOXIL) 500 mg capsule Take 1 capsule by mouth two times a day for 10 days. lurasidone (LATUDA) 40 mg tablet Take 80 mg by mouth once daily. (Patient not taking: Reported on 10/27/2023) VIT 10-IRON FUM-FOLIC ORAL Take by mouth. (Patient not taking: Reported on 10/27/2023) FAMILY HISTORY Problem Relation Age of Onset Seizures No Family History Social History Tobacco Use Smoking status: Former Types: Cigarettes Smokeless tobacco: Current Tobacco comments: vape Substance Use Topics Alcohol use: Not Currently Drug use: Never Objective Physical Exam Vitals and nursing note reviewed. Constitutional: General: She is not in acute distress. Appearance: Normal appearance. She is not ill-appearing. HENT: Right Ear: Tympanic membrane, ear canal and external ear normal. Left Ear: Tympanic membrane, ear canal and external ear normal. Nose: Nose normal. Mouth/Throat: Mouth: Mucous membranes are moist. Pharynx: Uvula midline. Posterior oropharyngeal erythema present. No oropharyngeal exudate. Cardiovascular: Rate and Rhythm: Normal rate and regular rhythm. Heart sounds: Normal heart sounds. Pulmonary: Effort: Pulmonary effort is normal. No respiratory distress. Breath sounds: Normal breath sounds. No wheezing or rales. Abdominal: General: There is no distension. Palpations: There is no mass. Tenderness: T (more content not included)... Normal [facility] STREP A MOLECULAR (POC)on Interpretation and review of laboratory results Abnormal [facility] Procedural Control Valid [facility] Strep A (POCT) Positive Abnormal Negative [facility] UA DIP, URINE (POC)on 2023 BILIRUBIN UA (POCT) Negative Negative [facility] CLARITY UA (POCT) Clear [facility] COLOR UA (POCT) Dark yellow [facility] GLUCOSE UA (POCT) Negative Negative mg/dL [facility] Hemoglobin Ql (U) Negative Negative [facility] Interpretation and review of laboratory results Abnormal [facility] KETONE UA (POCT) 40 mg/dL Abnormal Negative [facility] LEUKOCYTES UA (POCT) Trace Abnormal Negative [facility] NITRITE UA (POCT) Negative Negative [facility] PH UA (POCT) 6.0 4.5 - 8.0 [facility] Protein Ql (U) 30 mg/dL Abnormal Negative [facility] SPECIFIC GRAVITY UA (POCT) 1.025 1.005 - 1.030 [facility] UROBILINOGEN UA (POCT) 0.2 Normal E.U./dL [facility] Location:[facility], [address], [place], [place], [id number] [place] [address] POINT OF CARE [facility] UA DIP,URINE HCG (POC)on Beta HCG ( test) Ql (U) Positive Abnormal Negative [facility] Comment on above: Location:[address], [place], [address] Interpretation and review of laboratory results Abnormal [facility] General Contractor (POCT) Internal QC OK [facility] Location:[facility], [address] [place] [address], [place], [place], [id number] [place] [address] POINT OF CARE [facility] CNPNon [facility] ---- BERTIN MCDUFFIE ([id number]) 1995 F Date Time Provider Department 10/19/23 [facility] During your visit today, we recorded the following information about you: Rowan Garcia RN 10/19/2023 1:36 PM Signed Pt put through to scheduling to set up PT appointment. Allergies As of Date: 10/19/2023 (No Known Allergies) Date Reviewed: 09/14/2023 Reviewed by: Rosana Evans APRN.SURVEY TECHNOLOGIST - Fully Assessed Reason for Visit: Appointment [186] Prescriptions as of 10/19/2023 - sertraline (ZOLOFT) 50 mg tablet Take 1 tablet by mouth once daily - cyclobenzaprine (FLEXERIL) 10 mg tablet Take 1 tablet by mouth three times a day as needed for muscle spasm. - lurasidone (LATUDA) 40 mg tablet Take 80 mg by mouth once daily. - lamoTRIgine ER (LAMICTAL XR) 300 mg 24 hr tablet Take 1 tablet by mouth every morning. - VIT 10-IRON FUM-FOLIC ORAL Take by mouth. 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 Localized superficial swelling, mass, or lump [*11/11/2013 11/25/2013 HIGINIO positive [R76.8] 11/25/2013 Nocturia [R35.1] 01/16/2014 Dizziness [R42] 01/16/2014 Abnormal thyroid blood test [R79.89] 01/16/2014 Attention deficit hyperactivity disorder (ADHD)*04/04/2009 Seizures (HCC) [R56.9] 09/08/2023 Encounter Status:Closed by ROWAN GARCIA on 10/19/23 Normal [facility] XR Knee - right 4 Viewson IMPRESSION: No radiographic evidence of acute osseous abnormality Extermination Supervisor[facility] Transcribe Date/Time: Sep 28 2023 3:19P Dictated by : LOTTIE RUSSELL MD This examination was interpreted and the report reviewed and electronically signed by: LOTTIE RUSSELL MD on Sep 28 2023 3:20PM [facility] DIVISION OF RADIOLOGY * * *Final Report* * * DATE OF EXAM: Sep 24 2023 3:18PM WOX [id number] - XR KNEE 4V AP/PA BOTH+LAT/RASHID RT / PROCEDURE REASON: multiple diagnoses * * * * Physician Interpretation * * * * TITLE: XR KNEE 4V AP/PA BOTH+LAT/RASHID RT CLINICAL INDICATION: Pain TECHNIQUE: AP/PA/merchant radiographs of both knees and lateral radiograph of the right COMPARISON: None FINDINGS: Right knee: Juan fluid in the right suprapatellar joint space. No acute fracture or dislocation. Joint spaces preserved. Left knee: No acute fracture or dislocation. Joint spaces preserved. DIVISION OF RADIOLOGY Provider, [facility] [place] - 09/28/2023 * * *Final Report* * * DATE OF EXAM: Sep 24 2023 3:18PM WOX 5203 - XR KNEE 4V AP/PA BOTH+LAT/RASHID RT / PROCEDURE REASON: multiple diagnoses * * * * Physician Interpretation * * * * TITLE: XR KNEE 4V AP/PA BOTH+LAT/RASHID RT CLINICAL INDICATION: Pain TECHNIQUE: AP/PA/merchant radiographs of both knees and lateral radiograph of the right COMPARISON: None FINDINGS: Right knee: Juan fluid in the right suprapatellar joint space. No acute fracture or dislocation. Joint spaces preserved. Left knee: No acute fracture or dislocation. Joint spaces preserved. IMPRESSION IMPRESSION: No radiographic evidence of acute osseous abnormality Extermination Supervisor: [facility] Transcribe Date/Time: Sep 28 2023 3:19P Dictated by : LOTTIE RUSSELL MD This examination was interpreted and the report reviewed and electronically signed by: LOTTIE RUSSELL MD on Sep 28 2023 3:20PM EST [facility] XR Knee - right 4 ViewsOrder ed By: [facility] Provider on 09-28-2023 [facility] XR Pelvis and Hip - right AP and Lateral frogon 09-28-2023 IMPRESSION: No radiographic evidence of acute osseous abnormality Extermination Supervisor: [facility] Transcribe Date/Time: Sep 28 2023 2:48P Dictated by : LOTTIE RUSSELL MD This examination was interpreted and the report reviewed and electronically signed by: LOTTIE RUSSELL MD on Sep 28 2023 3:03PM [facility] DIVISION OF RADIOLOGY * * *Final Report* * * DATE OF EXAM: Sep 24 2023 3:18PM WOX 5352 - XR HIP 3V PELV+ AP/LAT RT / PROCEDURE REASON: multiple diagnoses * * * * Physician Interpretation * * * * TITLE: XR HIP 3V PELV+ AP/LAT RT CLINICAL INDICATION: Pain TECHNIQUE: AP radiograph of the pelvis and AP/frog leg lateral radiographs of the right hip COMPARISON: Radiograph dated February 04, 2023 FINDINGS: No acute fracture or dislocation identified. Bilateral hip joint spaces appear symmetric and preserved. DIVISION OF RADIOLOGY Provider, [facility] [place] - 09/28/2023 * * *Final Report* * * DATE OF EXAM: Sep 24 2023 3:18PM WOX [id number] - XR HIP 3V PELV+ AP/LAT RT / PROCEDURE REASON: multiple diagnoses * * * * Physician Interpretation * * * * TITLE: XR HIP 3V PELV+ AP/LAT RT CLINICAL INDICATION: Pain TECHNIQUE: AP radiograph of the pelvis and AP/frog leg lateral radiographs of the right hip COMPARISON: Radiograph dated February 04, 2023 FINDINGS: No acute fracture or dislocation identified. Bilateral hip joint spaces appear symmetric and preserved. IMPRESSION IMPRESSION: No radiographic evidence of acute osseous abnormality Extermination Supervisor: [facility] Transcribe Date/Time: Sep 28 2023 2:48P Dictated by : LOTTIE RUSSELL MD This examination was interpreted and the report reviewed and electronically signed by: LOTTIE RUSSELL MD on Sep 28 2023 3:03PM EST [facility] No Panel Informationon 09-23 Radiology Study observation (narrative) [facility] XR HIP 3V PELV+ AP/LAT RTon 09-24-2023 XR HIP 3V PELV+ AP/LAT RT * * *Final Report* * * DATE OF EXAM: Sep 24 2023 3:18PM WOX 5352 - XR HIP 3V PELV+ AP/LAT RT / PROCEDURE REASON: multiple diagnoses * * * * Physician Interpretation * * * * TITLE: XR HIP 3V PELV+ AP/LAT RT CLINICAL INDICATION: Pain TECHNIQUE: AP radiograph of the pelvis and AP/frog leg lateral radiographs of the right hip COMPARISON: Radiograph dated February 04, 2023 FINDINGS: No acute fracture or dislocation identified. Bilateral hip joint spaces appear symmetric and preserved. IMPRESSION: No radiographic evidence of acute osseous abnormality Extermination Supervisor: [facility] Transcribe Date/Time: Sep 28 2023 2:48P Dictated by : LOTTIE RUSSELL MD This examination was interpreted and the report reviewed and electronically signed by: LOTTIE RUSSELL MD on Sep 28 2023 3:03PM EST [id number] Normal [facility] XR KNEE 4V AP/PA BOTH+LAT/ME R RTon 09-24-2023 XR KNEE 4V AP/PA BOTH+LAT/RASHID RT * * *Final Report* * * DATE OF EXAM: Sep 24 2023 3:18PM WOX [id number] - XR KNEE 4V AP/PA BOTH+LAT/RASHID RT / PROCEDURE REASON: multiple diagnoses * * * * Physician Interpretation * * * * TITLE: XR KNEE 4V AP/PA BOTH+LAT/RASHID RT CLINICAL INDICATION: Pain TECHNIQUE: AP/PA/merchant radiographs of both knees and lateral radiograph of the right COMPARISON: None FINDINGS: Right knee: Juan fluid in the right suprapatellar joint space. No acute fracture or dislocation. Joint spaces preserved. Left knee: No acute fracture or dislocation. Joint spaces preserved. IMPRESSION: No radiographic evidence of acute osseous abnormality Extermination Supervisor: [facility] Transcribe Date/Time: Sep 28 2023 3:19P Dictated by : LOTTIE RUSSELL MD This examination was interpreted and the report reviewed and electronically signed by: LOTTIE RUSSELL MD on Sep 28 2023 3:20PM EST [id number] Normal [facility] CNOVon 09-14-2023 CNOV Office Visit (FAMWS) ---- BERTIN MCDUFFIE ([id number]) 1995 F Date Time Provider Department 09/14/23 11:20 AM [facility] During your visit today, we recorded the following information about you: Pulse Respiration Blood pressure Weight 64/minute 14/minute 112/64 69.1 kg Rosana Evans APRN.CNP 09/14/2023 12:33 PM Signed Chief Complaint Patient presents with: pain in rt hip and knee: Started about 6-7 months ago and has gotten worse HPI Bertin Mcduffie is a 27 year old female who presents here today for Above Complaints. Bertin is an established patient of Dr. Pelon DO and myself. Concerns today... R hip and knee pain x 6-7 months. Is becoming more constant pain. In the mornings it is worse or when sitting for long periods of time it will take 1-2 hours to calm down and be able to walk normally without discomfort. No known fall or injury. Pt also reports ongoing back pain that she has been seen in office for. X-rays done. Was told to start physical therapy but due to busy schedule, she never completed this. Now she is ready to do this since s/s worsening. Ibuprofen does help. Rotates between tylenol and ibuprofen. No other concerns or complaints. Past medical history, appointments, medications, allergies reviewed. Previous Medical History PAST MEDICAL HISTORY Diagnosis Date Depression with anxiety Seizures (HCC) 06/15/2012 Seizures ([facility]) 09/08/2023 Previous Surgical History No past surgical history on file. Family History FAMILY HISTORY Problem Relation Age of Onset Seizures No Family History Patient Allergies ALLERGIES No Known Allergies Current Medications Current Outpatient Medications on File Prior to Visit Medication Sig sertraline (ZOLOFT) 50 mg tablet Take 1 tablet by mouth once daily lamoTRIgine ER (LAMICTAL XR) 300 mg 24 hr tablet Take 1 tablet by mouth every morning. VIT 10-IRON FUM-FOLIC ORAL Take by mouth. lurasidone (LATUDA) 40 mg tablet Take 80 mg by mouth once daily. folic acid 1 mg tablet Take 1 mg by mouth once daily. 3 mg once a day (Patient not taking: Reported on 09/14/2023) No current facility-administer ed medications on file prior to visit. Social History Social History Tobacco Use Smoking status: Former Types: Cigarettes Smokeless tobacco: Current Tobacco comments: vape Substance Use Topics Alcohol use: Not Currently Drug use: Never REVIEW OF SYSTEMS: as above Reviewed relevant PMHx, PSHx, Social Hx, current medications and allergies. Review of Symptoms REVIEW OF SYSTEMS See HPI. EXAM: BP 112/64 (BP Site: Left Arm, BP Position: Sitting, BP Cuff Size: Regular Adult) Pulse 64 Resp 14 Wt 69.1 kg (152 lb 6.4 oz) LMP (LMP Unknown) BMI 25.36 kg/m? General Appearance: Well appearing, alert, in no acute distress, well-hydrated, well nourished.. Skin: Skin color, texture, turgor normal, no suspicious rashes or lesions. Head: Normocephalic, no masses, lesions, tenderness or abnormalities. Extremities: No deformities, edema, skin discoloration, clubbing or cyanosis. Good capillary refill. , Positive findings: joint location: on right knee pain and painful movement, on right hip pain and painful movement. Musculoskeletal: No joint swelling, deformity, or tenderness. Peripheral Pulses: Normal, Capillary refill <2secs, strong peripheral pulses. Neurologic: Gait normal. Reflexes normal and symmetric. Sensation grossly intact.. Health Maintenance List HPV Vaccine(3 - 2-dose series) due on 06/16/2010 Pap Testing Never done Depression Assessment due on 06/15/2023 Covid-19 Vaccine(2022- season) due on 09/13/2024 Influenza Vaccine(Season Ended) due on 02/14/2024 DTaP,Tdap,Td Vaccine(10 - Td or Tdap) due on 11/13/2032 Hepatitis C Screening Completed HIV Screening Completed Hepatitis B Vaccine Discontinued ASSESSMENT/PLAN: 1. Acute pain of right knee - ICD9: 719.46, ICD10: M25.561 (primary diagnosis) X-rays as ordered. Continue with rotating between otc tylenol and NSAID as needed. Flexeril as needed for severe discomfort. This has worked well in the past. Schedule with physical therapy. RICE therapy. - XR KNEE GENERAL 4V AP BOTH/PA BOTH/LAT/MERC RIGHT - XR HIP GENERAL 3V PELV/AP/LAT RIGHT - CYCLOBENZAPRINE 10 MG TABLET - CONSULT TO PHYSICAL THERAPY 2. Acute midline low back pain without sciatica - ICD9: 724.2, ICD10: M54.50 See above. - XR KNEE GENERAL 4V AP BOTH/PA BOTH/LAT/MERC RIGHT - XR HIP GENERAL 3V PELV/AP/LAT RIGHT - CYCLOBENZAPRINE 10 MG TABLET - CONSULT TO PHYSICAL THERAPY 3. Pain of right hip - ICD9: 719.45, ICD10: M25.551 See above. - XR KNEE GENERAL 4V AP BOTH/PA BOTH/LAT/MERC RIGHT - XR HIP GENERAL 3V PELV/AP/LAT RIGHT - CYCLOBENZAPRINE 10 MG TABLET - CONSULT TO PHYSICAL THERAPY RTO as needed if no improvement. Prescription instructions revi (more content not included)... Normal [facility] CNDSon 09-09-2023 [facility] HNO ID: [id number] Author: NEYMAR PADILLA MD Service: Neurology Adult Epilepsy Author Type: Physician [employer] Estate [employer] Administrator Type: Discharge Summary Filed: 09/09/2023 10:06 Note Text: ---- Attestation signed by Neymar Padilla MD at 09/09/2023 10:06 AM [facility]Y [facility] ATTENDING NOTE Date of Service: September 08, 2023 [facility] STAFF PHYSICIAN NOTE OF PERSONAL INVOLVEMENT IN CARE I have reviewed the discharge note obtained and documented by Sammie Ayala PA-C as above. Please see my separate phase report for details of history, EEG interpretation, and overall impression. Neymar Padilla MD Associate Staff, Epilepsy [facility] September 09, 2023 Office phone: [phone] ---- DISCHARGE SUMMARY PATIENT NAME: Bertin Mcduffie ADMISSION DATE: 09/08/2023 DISCHARGE DATE: 09/08/2023 ADMITTING SERVICE: Epilepsy ATTENDING PHYSICIAN: Neymar Padilla MD Code Status: Not on file Referring/Secondary Physician: Dr. Oz Terrazas Highest Readmission Risk Score: 7 The 30 day readmissions risk score is derived from an internally validated risk model which evaluates patient level characteristics, utilization history, medication orders and lab results up until the day of discharge. Patients with a score of 40 or above are considered highest risk for readmission. Specific patient level drivers will be listed at the bottom of the summary. The 30 day readmissions risk score is derived from an internally validated risk model which evaluates patient level characteristics, utilization history, medication orders and lab results up until the day of discharge. Patients with a score of 40 or above are considered highest risk for readmission. Specific patient level drivers will be listed at the bottom of the summary. REASON FOR HOSPITALIZATION: Diagnosis IMPORTANT TESTS AND PROCEDURES: Continuous Video EEG HOSPITAL COURSE: Bertin Mcduffie is a 27 year old female who presented to the [facility] on 09/08/2023 for diagnosis of seizure-like activity that began at 17 years of age described as nausea with hot/cold feeling, dizziness, stomach churning, with hazy vision then she will be seen staring and will fall without convulsion. JASIEL which lasts 5-10 minutes and occurs 1-2 times per year. Medications were discontinued during the admission. Patient did not have any typical events captured during this admission. Please see separate video-EEG report for details. Patient requesting to be discharged this evening. This provider spoke with patient over the phone, patient states that she needs to go home as her baby has refused to eat since patient has been in the hospital. Prior to discharge, patient was given Lamotrigine IR 300mg x1 and was instructed to resume her home dose of Lamotrigine XR 300mg tomorrow morning (09/08). Patient will need to follow up with Dr. Terrazas outpatient for further evaluation and EEG monitoring. Seizure precautions were advised and patient was discharged home in stable condition. Principal Problem: Seizures (HCC) (POA: Yes) Resolved Problems: * No resolved hospital problems. * Transitions of Care Critical Issues: SPECIALIST FOLLOW-UP: Follow up with epilepsy, Dr. Terrazas LABS AND PROCEDURES PENDING AT DISCHARGE: Finalized Video EEG Report CONSULTING TEAMS DURING HOSPITALIZATION: None Treatment Team: Attending Provider: Neymar Padilla MD PATIENT CONDITION AT DISCHARGE: Stable DISCHARGE DISPOSITION: Home with family Discharge Physical Exam: VITAL SIGNS: BP 102/60 Pulse 69 Temp 36.2 ?C (97.2 ?F) (Temporal) Resp 19 Ht 165.1 cm (5' 5) Wt 63.5 kg (140 lb) LMP (LMP Unknown) SpO2 98% BMI 23.30 kg/m? Unable to examine patient at [facility]. Spoke with patient over the phone who is alert and oriented with intact speech and knowledge. INFORMATION PROVIDED TO PATIENT: Seizure first aid Seizure tracking- DIET: Resume pre-hospital diet ACTIVITY: Seizure Precautions: no bathing or swimming unsupervised, no driving, no use of heavy machinery, no use of sharp moving objects (i.e. power tools), avoid heights. If active epilepsy, driving will need to be cleared by an Epileptologist. Driving laws vary state to state, refer to state law for restrictions. ALLERGIES No Known Allergies DISCHARGE MEDICATION: Medication List CONTINUE taking these medications folic acid 1 mg tablet lamoTRIgine ER 300 mg 24 hr tablet Commonly known as: LaMICtal XR Take 1 tablet by mouth every morning. lurasidone 40 mg tablet Commonly known as: LATUDA VIT 10-IRON FUM-FOLIC ORAL sertraline 50 mg tablet Commonly known as: ZOLOFT Take 1 tablet by mouth once daily PLAN OF CARE: Plan of care discussed with Provider, RN, Patient FUTURE APPOINTMENTS: No future appointment (more content not included)... Normal [facility] ALLIED HEALTHon 09-08-2023 [facility] HNO ID: [id number] Author: MONE HERNÁNDEZ Chaplain Service: ? Author Type: Scheduler Type: Allied Health Filed: 09/08/2023 15:18 Note Text: SPIRITUAL CARE PROGRESS NOTE SERVICE DATE: 09/08/2023 SERVICE TIME: 2:25 PM Scheduler attended patient during unit rounds. Patient was in good spirits. Scheduler provided presence, assurance, and empathic listening. Scheduler also oriented patient to available spiritual care resources. Patient expressed gratitude. To contact the Spiritual Care Department: Please call [phone]. SIGNATURE: Chaplain Bharathi PATIENT NAME: Bertin Mcduffie DATE: September 08, 2023 TIME: 3:17 PM PAGER/CONTACT #: [phone] [facility] CBC W Auto Differential pane l (Bld)on 09-08-2023 Basophils (Bld) [#/Vol] 0.04 10*3/uL Normal <0.11 [facility] Comment on above: Order Comment: Speci men Type: BLOOD SPECIMEN Ordering Facility: [facility] Address: [address] [place] [address] Performed By: #### 5 7021-8 #### [facility] CLIA [id number] [address] STATES OF [facility] Basophils/100 WBC (Bld) 0.8 % Normal [facility] Comment on above: Order Comment: Speci men Type: BLOOD SPECIMEN Ordering Facility: [facility] Address: [address] [place] [address] Performed By: #### 5 7021-8 #### [facility] CLIA [id number] [address] Differential cell count method Nom (Bld) Auto Normal [facility] Comment on above: Order Comment: Speci men Type: BLOOD SPECIMEN Ordering Facility: [facility] Address: [address] [place] [address] Performed By: #### 5 7021-8 #### [facility] CLIA [id number] [address] [place] Eosinophils (Bld) [#/Vol] 0.22 10*3/uL Normal <0.46 [facility] Comment on above: Order Comment: Speci men Type: BLOOD SPECIMEN Ordering Facility: [facility] Address: [address] [place] [address] Performed By: #### 5 7021-8 #### [facility] CLIA [id number] [address] Eosinophils/100 WBC (Bld) 4.1 % Normal [facility] Comment on above: Order Comment: Speci men Type: BLOOD SPECIMEN Ordering Facility: [facility] Address: [address] [place] [address] Performed By: #### 5 7021-8 #### [facility] CLIA [id number] [address] Erythrocyte distribution width (RBC) [Ratio] 13.6 % Normal 11.5-15.0 [facility] Comment on above: Order Comment: Speci men Type: BLOOD SPECIMEN Ordering Facility: [facility] Address: [address] [place] [address] Performed By: #### 5 7021-8 #### [facility] CLIA [id number] [address] [place] Hematocrit (Bld) [Volume fraction] 38.0 % Normal 36.0-46.0 [facility] Comment on above: Order Comment: Speci men Type: BLOOD SPECIMEN Ordering Facility: [facility] Address: [address] [place] [address] Performed By: #### 5 7021-8 #### [facility] CLIA [id number] [address] [place] Hemoglobin (Bld) [Mass/Vol] 12.4 g/dL Normal 11.5-15.5 [facility] Comment on above: Order Comment: Speci men Type: BLOOD SPECIMEN Ordering Facility: [facility] Address: [address] [place] [address] Performed By: #### 5 7021-8 #### [facility] CLIA [id number] [address] [place] Immature granulocytes (Bld) [#/Vol] 10*3/uL Normal <0.10 [facility] Comment on above: Order Comment: Speci men Type: BLOOD SPECIMEN Ordering Facility: [facility] Address: [address] [place] [address] Performed By: #### 5 7021-8 #### [facility] CLIA [id number] [address] [place] Immature granulocytes/100 WBC (Bld) 0.2 % Normal [facility] Comment on above: Order Comment: Speci men Type: BLOOD SPECIMEN Ordering Facility: [facility] Address: [address] [place] [address] Performed By: #### 5 7021-8 #### [facility] CLIA [id number] [address] [place] Lymphocytes (Bld) [#/Vol] 1.63 10*3/uL Normal 1.00-4.00 [facility] Comment on above: Order Comment: Speci men Type: BLOOD SPECIMEN Ordering Facility: [facility] Address: [address] [place] [address] Performed By: #### 5 7021-8 #### [facility] CLIA [id number] [address] [place] Lymphocytes/100 WBC (Bld) 30.6 % Normal [facility] Comment on above: Order Comment: Speci men Type: BLOOD SPECIMEN Ordering Facility: [facility] Address: [address] [place] [address] Performed By: #### 5 7021-8 #### [facility] CLIA [id number] [address] MCH (RBC) [Entitic mass] 28.9 pg Normal 26.0-34.0 [facility] Comment on above: Order Comment: Speci men Type: BLOOD SPECIMEN Ordering Facility: [facility] Address: [address] [place] [address] Performed By: #### 5 7021-8 #### [facility] CLIA [id number] [address] OF [facility] MCHC (RBC) [Mass/Vol] 32.6 g/dL Normal 30.5-36.0 [facility] Comment on above: Order Comment: Speci men Type: BLOOD SPECIMEN Ordering Facility: [facility] Address: [address] [place] [address] Performed By: #### 5 7021-8 #### [facility] CLIA [id number] [address] MCV (RBC) [Entitic vol] 88.6 fL Normal 80.0-100.0 [facility] Comment on above: Order Comment: Speci men Type: BLOOD SPECIMEN Ordering Facility: [facility] Address: [address] [place] [address] Performed By: #### 5 7021-8 #### [facility] CLIA [id number] [address] Monocytes (Bld) [#/Vol] 0.38 10*3/uL Normal <0.87 [facility] Comment on above: Order Comment: Speci men Type: BLOOD SPECIMEN Ordering Facility: [facility] Address: [address] [place] [address] Performed By: #### 5 7021-8 #### [facility] CLIA [id number] [address] Monocytes/100 WBC (Bld) 7.1 % Normal [facility] Comment on above: Order Comment: Speci men Type: BLOOD SPECIMEN Ordering Facility: [facility] Address: [address] [place] [address] Performed By: #### 5 7021-8 #### [facility] CLIA [id number] [address] OF [place] Neutrophils (Bld) [#/Vol] 3.05 10*3/uL Normal 1.45-7.50 [facility] Comment on above: Order Comment: Speci men Type: BLOOD SPECIMEN Ordering Facility: [facility] Address: [address] [place] [address] Performed By: #### 5 7021-8 #### [facility] CLIA [id number] [address] Neutrophils/100 WBC (Bld) 57.2 % Normal [facility] Comment on above: Order Comment: Speci men Type: BLOOD SPECIMEN Ordering Facility: [facility] Address: [address] [place] [address] Performed By: #### 5 7021-8 #### [facility] CLIA [id number] [address] OF [place] Nucleated RBC (Bld) [#/Vol] 10*3/uL Normal <0.01 [facility] Comment on above: Order Comment: Speci men Type: BLOOD SPECIMEN Ordering Facility: [facility] Address: [address] [place] [address] Performed By: #### 5 7021-8 #### [facility] CLIA [id number] [address] Nucleated RBC/100 WBC (Bld) [Ratio] 0.0 /100 WBC Normal [facility] Comment on above: Order Comment: Speci men Type: BLOOD SPECIMEN Ordering Facility: [facility] Address: [address] [place] [address] Performed By: #### 5 7021-8 #### [facility] CLIA [id number] [address] OF [place] Platelet mean volume (Bld) [Entitic vol] 11.0 fL Normal 9.0-12.7 [facility] Comment on above: Order Comment: Speci men Type: BLOOD SPECIMEN Ordering Facility: [facility] Address: [address] [place] [address] Performed By: #### 5 7021-8 #### [facility] CLIA [id number] [address] OF [facility] Platelets (Bld) [#/Vol] 278 10*3/uL Normal 150-400 [facility] Comment on above: Order Comment: Speci men Type: BLOOD SPECIMEN Ordering Facility: [facility] Address: [address] [place] [address] Result Comment: No c lot detected. Performed By: #### 5 7021-8 #### [facility] CLIA [id number] [address] RBC (Bld) [#/Vol] 4.29 10*6/uL Normal 3.90-5.20 [facility] Comment on above: Order Comment: Speci men Type: BLOOD SPECIMEN Ordering Facility: [facility] Address: [address] [place] [address] Performed By: #### 5 7021-8 #### [facility] CLIA [id number] [address] WBC (Bld) [#/Vol] 5.33 10*3/uL Normal 3.70-11.00 [facility] Comment on above: Order Comment: Speci men Type: BLOOD SPECIMEN Ordering Facility: [facility] Address: [address] [place] [address] Performed By: #### 5 7021-8 #### [facility] CLIA [id number] [address] Comprehensive metabolic 2000 panelon 09-08-2023 Albumin [Mass/Vol] 4.5 g/dL Normal 3.9-4.9 [facility] Comment on above: Order Comment: Speci men Type: BLOOD SPECIMEN Ordering Facility: [facility] Address: [address] [place] [address] Performed By: #### 2 4323-8 #### [facility] CLIA [id number] [address] ALP [Catalytic activity/Vol] 73 U/L Normal 34-123 [facility] Comment on above: Order Comment: Speci men Type: BLOOD SPECIMEN Ordering Facility: [facility] Address: [address] [place] [address] Performed By: #### 2 4323-8 #### [facility] CLIA [id number] [address] OF [facility] ALT With P-5'-P [Catalytic activity/Vol] 15 U/L Normal 7-38 [facility] Comment on above: Order Comment: Speci men Type: BLOOD SPECIMEN Ordering Facility: [facility] Address: [address] [place] [address] Performed By: #### 2 4323-8 #### [facility] CLIA [id number] [address] Anion gap [Moles/Vol] 9 mmol/L Normal 9-18 [facility] Comment on above: Order Comment: Speci men Type: BLOOD SPECIMEN Ordering Facility: [facility] Address: [address] [place] [address] Performed By: #### 2 4323-8 #### [facility] CLIA [id number] [address] AST With P-5'-P [Catalytic activity/Vol] Normal [facility] Comment on above: Order Comment: Speci men Type: BLOOD SPECIMEN Ordering Facility: [facility] Address: [address] [place] [address] Result Comment: Unab le to assay due to interference from hemolysis. Suggest reorder as clinically indicated. Performed By: #### 2 4323-8 #### [facility] CLIA [id number] [address] [place] Bilirubin [Mass/Vol] 0.3 mg/dL Normal 0.2-1.3 [facility] Comment on above: Order Comment: Speci men Type: BLOOD SPECIMEN Ordering Facility: [facility] Address: [address] [place] [address] Performed By: #### 2 4323-8 #### [facility] CLIA [id number] [address] [place] Calcium [Mass/Vol] 9.5 mg/dL Normal 8.5-10.2 [facility] Comment on above: Order Comment: Speci men Type: BLOOD SPECIMEN Ordering Facility: [facility] Address: [address] [place] [address] Performed By: #### 2 4323-8 #### [facility] CLIA [id number] [address] [place] Chloride [Moles/Vol] 104 mmol/L Normal 97-105 [facility] Comment on above: Order Comment: Speci men Type: BLOOD SPECIMEN [facility] [place] Address: [address] [place] [address] Performed By: #### 2 4323-8 #### [facility] CLIA [id number] [address] [place] CO2 [Moles/Vol] 25 mmol/L Normal 22-30 [facility] Comment on above: Order Comment: Speci men Type: BLOOD SPECIMEN Ordering Facility: [facility] Address: [address] [place] [address] Performed By: #### 2 4323-8 #### [facility] CLIA [id number] [address] [place] Creatinine [Mass/Vol] 0.52 mg/dL Low 0.58-0.96 [facility] Comment on above: Order Comment: Speci men Type: BLOOD SPECIMEN Ordering Facility: [facility] Address: [address] [place] [address] Performed By: #### 2 4323-8 #### [facility] CLIA [id number] [address] OF [place] Creatinine and Glomerular filtration rate.predicted panel (S/P/Bld) 132 mL/min/1.73m??? Normal >=60 [facility] Comment on above: Order Comment: Miguel bell Type: BLOOD SPECIMEN Ordering Facility: [facility] Address: [address] [place] [address] Result Comment: Evelyne mated Glomerular Filtration Rate (eGFR) is calculated using the 2020 CKD-EPI creatinine equation. This equation utilizes serum creatinine, sex, and age as parameters. The creatinine assay has traceable calibration to isotope dilution-mass spectrometry. Refer to KDIGO guidelines for clinical interpretation. In patients with unstable renal function, e.g. those with acute kidney injury, the eGFR may not accurately reflect actual GFR. Performed By: #### 2 4323-8 #### [facility] CLIA [id number] 1 [place] [address] [place] Glucose [Mass/Vol] 81 mg/dL Normal 74-99 [facility] Comment on above: Order Comment: Miguel bell Type: BLOOD SPECIMEN Ordering Facility: [facility] Address: [address] [place] [address] Result Comment: The English Diabetes Association (ADA) provides guidance for cutoff values for fasting glucose and random glucose. The ADA defines fasting as no caloric intake for at least 8 hours. Fasting plasma glucose results between 100 to 125 mg/dL indicate increased risk for diabetes (prediabetes). Fasting plasma glucose results greater than or equal to 126 mg/dL meet the criteria for diagnosis of diabetes. In the absence of unequivocal hyperglycemia, results should be confirmed by repeat testing. In a patient with classic symptoms of hyperglycemia or hyperglycemic crisis, random plasma glucose results greater than or equal to 200 mg/dL meet the criteria for diagnosis of diabetes. Reference: Standards of Medical Care in Diabetes 2016, English Diabetes Association. Diabetes Care. 2016.39(Suppl 1). Performed By: #### 2 4323-8 #### [facility] CLIA [id number] 1 [place] [address] [place] Potassium [Moles/Vol] 4.0 mmol/L Normal 3.7-5.1 [facility] Comment on above: Order Comment: Miguel bell Type: BLOOD SPECIMEN Ordering Facility: [facility] Address: [address] [place] [address] Performed By: #### 2 4323-8 #### [facility] CLIA [id number] [address] STATES OF [facility] Protein [Mass/Vol] 7.5 g/dL Normal 6.3-8.0 [facility] Comment on above: Order Comment: Speci men Type: BLOOD SPECIMEN Ordering Facility: [facility] Address: [address] [place] [address] Performed By: #### 2 4323-8 #### [facility] CLIA [id number] [address] [place] Sodium [Moles/Vol] 138 mmol/L Normal 136-144 [facility] Comment on above: Order Comment: Speci men Type: BLOOD SPECIMEN Ordering Facility: [facility] Address: [address] [place] [address] Performed By: #### 2 4323-8 #### [facility] CLIA [id number] [address] [place] Urea nitrogen [Mass/Vol] 11 mg/dL Normal 7-21 [facility] Comment on above: Order Comment: Speci men Type: BLOOD SPECIMEN Ordering Facility: [facility] Address: [address] [place] [address] Performed By: #### 2 4323-8 #### [facility] CLIA [id number] [address] [place] HCG Preg Ur Qlon 09-08-2023 HCG ( test) Ql (U) Negative Normal Negative [facility] Comment on above: Order Comment: Speci men Type: URINE SPECIMEN Ordering Facility: [facility] Address: [address] [place] [address] Result Comment: This test is intended to aid in the early detection of . Very dilute urine samples, as indicated by a low specific gravity, may not contain instruments sales representative levels of hCG. This test detects intact hCG only. This test does not reliably detect hCG degradation products, including free-beta subunit and beta-core fragment. Therefore, this test may show reduced reactivity in urine after 8 weeks gestation. A number of conditions other than , including trophoblastic disease and certain non-trophoblastic neoplasms cause elevated levels of hCG. As with any assay employing mouse antibodies, the possibility exists for interference by human anti-mouse antibodies (HAMA) in the specimen. The test provides a presumptive diagnosis for . Performed By: #### 2 106-3 #### [facility] CLIA [id number] 1 [place] [address] [place] HISTORY PHYSICALon HISTORY PHYSICAL HNO ID: [id number] Author: NEYMAR PADILLA MD Service: Neurology Adult Epilepsy Author Type: Nurse Practitioner Type: H&P Filed: 09/08/2023 21:54 Note Text: ---- Attestation signed by Neymar Padilla MD at 09/08/2023 9:54 PM --- EPILEPSY CENTER ATTENDING NOTE [facility] Epilepsy Monitoring Unit Progress Note Date of Service: September 08, 2023 [facility] STAFF PHYSICIAN NOTE OF PERSONAL INVOLVEMENT IN CARE Patient was interviewed and examined by me on separate attending rounds this morning with nurse practitioner, Ashley Carlson CNP. I have reviewed the history, exam, diagnosis, and plan obtained and documented by the nurse practitioner as above. I performed my own [id number] assessment and personally participated in the cruz components. The following comments revise or confirm these. I have discussed the case and management of the patient's care with the care team. Clinical overnight update: No episodes. No complaints. Pertinent exam: Normal neurological examination ____ Data reviewed: Continuous video EEG recording was personally reviewed by myself and the results of the evaluation to date are summarized below. Interictal findings: to be reviewed Ictal findings: ____ IMPRESSION: Ms. Bertin Mcduffie is a 27 year old Right handed woman with history of seizures since 17 yrs. Currently on Lamotrigine. Prior ambulatory EEG reported normal with a less intense event (but not full spectrum). Admitted for diagnosis. Primary epileptologist: Dr. Terrazas Admit Date: 09/08/2023 Seizure types: Type A: Aura (hot/cold/nausea)-> Staring-> JASIEL/LOC PLAN: Continuous video-EEG monitoring continues Holding home anti-epileptic medications Admission AED levels pending Activation procedures: hyperventilation, photic stimulation Seizure precautions Rescue plan in place: 2mg of lorazepam (Ativan) IV as needed for prolonged motor epileptic seizure greater than 3 minutes and or 3rd motor epileptic seizure within 8 hours. Discharge planning pending capturing episodes of concern Follow-up after discharge with Dr. Terrazas The treatment plan was discussed in detail with the patient. Time for questions was given and answers were discussed. The patient agreed with the treatment plan. Neymar Padilla MD Associate Staff, Epilepsy [facility] September 08, 2023 Office phone: [phone] Pager: [phone] For urgent EEG review, call the Epilepsy Continuous Monitoring Unit (ECMU) at [facility] [phone] or [phone]. For overnight issues, 7pm to 7am, [place] [phone]. For in house night coverage of emergencies, call [facility] pager [phone]. ---- NEURO EPILEPSY ADMIT NOTE SERVICE DATE: 09/08/2023 SERVICE TIME: 11:38 AM COVERAGE: 7 am - 7 pm please page the [place] Epilepsy Staff java application engineer (EPI EMU Service: [facility]) 7 pm - 7 am, please page [phone] to contact the epilepsy provider java application engineer (EPI On-Call Night) ATTENDING PHYSICIAN: Dr. Padilla [facility] UNIT: [id number] - [place] Adult Epilepsy Monitoring Unit (EMU) SERVICE: Adult Epilepsy Subjective CHIEF COMPLAINT: seizures PRESENT ILLNESS: This is a 27 year old right handed female who presents with a chief complaint of seizures admitted for diagnostic Video EEG monitoring. She is an established patient of Dr. Terrazas, last seen on 03/30/2023. Portions of his note were copied, italicized, and reviewed with the patient. SEIZURE HISTORY: Seizures started at age 17 years. They were uncontrolled and one times she had three in a row. She denied any family history of seizures, TBI, meningitis, or febrile seizures. She continues to have seizures. The last three were 03/11/23, December 2021, and 2-3 years before 2021. The last one on 03/11/23 was attributed to missing two days of medications. Her has witnessed one of them. She will look like a zombie staring. She will fall and is motionless. No convulsion. She is unresponsive when stimulated. It will last 5-10 minutes. She has no recall afterward. No TB or UI. She has an aura of nausea, hot/cold feeling, dizziness, stomach turning, and vision becomes hazy. She cannot hear and her vision will turn white before passing out. She was told these are petit mal and another point called them stress induced. She had a concussion as a result of falling off the stairs at age 18 years. She has been on PB, LEV, and now takes LTG ER. She reports being on another medication that she could not recall despite listing suri (more content not included)... Normal [facility] TOX SCREEN ROUT URon 024 Amphetamines Confirm (U) [Mass/Vol] Negative Normal Negative [facility] Comment on above: Order Comment: Speci men Type: URINE SPECIMEN Ordering Facility: [facility] Address: [address] [place] [address] Result Comment: Cuto ff threshold at 1000 ng/mL. Performed By: #### U TOX2 #### [facility] CLIA [id number] [address] OF [place] BARBITURATES, URINE Negative Normal Negative [facility] Comment on above: Order Comment: Speci men Type: URINE SPECIMEN Ordering Facility: [facility] Address: [address] [place] [address] Result Comment: Cuto ff threshold at 200 ng/mL. Performed By: #### U TOX2 #### [facility] CLIA [id number] 1 [place] [address] [place] BENZODIAZEPINES, UR Negative Normal Negative [facility] Comment on above: Order Comment: Speci men Type: URINE SPECIMEN Ordering Facility: [facility] Address: [address] [place] [address] Result Comment: Cuto ff threshold at 200 ng/mL. Performed By: #### U TOX2 #### [facility] CLIA [id number] [address] [place] Cannabinoids Screen Ql (U) Positive Abnormal Negative [facility] Comment on above: Order Comment: Speci men Type: URINE SPECIMEN Ordering Facility: [facility] Address: [address] [place] [address] Result Comment: Cuto ff threshold at 50 ng/mL. Performed By: #### U TOX2 #### [facility] CLIA [id number] [address] [place] Cocaine Ql (U) Negative Normal Negative [facility] Comment on above: Order Comment: Speci men Type: URINE SPECIMEN Ordering Facility: [facility] Address: [address] [place] [address] Result Comment: Cuto ff threshold at 300 ng/mL. Performed By: #### U TOX2 #### [facility] CLIA [id number] [address] [place] Ethanol (U) [Mass/Vol] <11 Normal <11 [facility] Comment on above: Order Comment: Speci men Type: URINE SPECIMEN Ordering Facility: [facility] Address: [address] [place] [address] Performed By: #### U TOX2 #### [facility] CLIA [id number] [address] Opiates Screen Ql (U) Negative Normal Negative [facility] Comment on above: Order Comment: Speci men Type: URINE SPECIMEN Ordering Facility: [facility] Address: [address] [place] [address] Result Comment: Cuto ff threshold at 300 ng/mL. Performed By: #### U TOX2 #### [facility] CLIA [id number] [address] oxyCODONE cutoff Screen (U) [Mass/Vol] Negative Normal Negative [facility] Comment on above: Order Comment: Speci men Type: URINE SPECIMEN Ordering Facility: [facility] Address: [address] [place] [address] Result Comment: Cuto ff threshold at 100 ng/mL. Performed By: #### U TOX2 #### [facility] CLIA [id number] [address] Phencyclidine Ql (U) Negative Normal Negative [facility] Comment on above: Order Comment: Speci men Type: URINE SPECIMEN Ordering Facility: [facility] Address: [address] [place] [address] Result Comment: Cuto ff threshold at 25 ng/mL. Performed By: #### U TOX2 #### [facility] CLIA [id number] [address] OF [place] lamoTRIgine [facility] l[facility] [Mass/Vol] <0.5 Low 1.0-13.0 [facility] Comment on above: Order Comment: Speci men Type: BLOOD SPECIMENOrdering Facility: [facility] Address: [address] [place] [address] Result Comment: This test was developed and its performance characteristics determined by [facility]'s [facility] [place] ([facility]). It has not been cleared or approved by the FDA. [facility] is regulated under CLIA as qualified to perform high-complexity testing. This test is used for clinical purposes. It should not be regarded as investigational or for research. Performed By: #### 6 948-4 ####[facility] [id number] [place] [address] [place] XR Pelvis and Hip - left AP and Lateral frogon 02-08-2023 IMPRESSION: No acute pathology is identified. Extermination Supervisor: QAMAR Transcribe Date/Time: Feb 07 2023 3:19P Dictated by : TR CAROLINA DO This examination was interpreted and the report reviewed and electronically signed by: TR CAROLINA DO on Feb 08 2023 12:41PM [facility] DIVISION OF RADIOLOGY * * *Final Report* * * DATE OF EXAM: Feb 04 2023 2:23PM WOX 5351 - XR HIP 3V PELV+ AP/LAT LT / PROCEDURE REASON: Pain of left hip * * * * Physician Interpretation * * * * Pelvis and left hip HISTORY: Indication: Pain of left hip TECHNIQUE: Images: XR HIP 3V PELV+ AP/LAT LT Comparison: None. RESULT: Findings: Pelvis: No fractures or dislocations are seen. Sacroiliac joints are patent. Lower lumbar spine is unremarkable. Hip joints are well preserved Left hip: No fractures or dislocations are seen. DIVISION OF RADIOLOGY Provider, [facility] [place] - 02/08/2023 * * *Final Report* * * DATE OF EXAM: Feb 04 2023 2:23PM WOX 5351 - XR HIP 3V PELV+ AP/LAT LT / PROCEDURE REASON: Pain of left hip * * * * Physician Interpretation * * * * Pelvis and left hip HISTORY: Indication: Pain of left hip TECHNIQUE: Images: XR HIP 3V PELV+ AP/LAT LT Comparison: None. RESULT: Findings: Pelvis: No fractures or dislocations are seen. Sacroiliac joints are patent. Lower lumbar spine is unremarkable. Hip joints are well preserved Left hip: No fractures or dislocations are seen. IMPRESSION IMPRESSION: No acute pathology is identified. Extermination Supervisor: PSCB Transcribe Date/Time: Feb 07 2023 3:19P Dictated by : TR CAROLINA DO This examination was interpreted and the report reviewed and electronically signed by: TR CAROLINA DO on Feb 08 2023 12:41PM EST [facility] XR Thoracic spine AP and Lat eral and [place]immerson 02-07-2023 IMPRESSION: Unremarkable thoracic spine. Extermination Supervisor: PSCB Transcribe Date/Time: Feb 07 2023 6:54P Dictated by : BEAU GO MD This examination was interpreted and the report reviewed and electronically signed by: BEAU GO MD on Feb 07 2023 6:55PM EST DIVISION OF RADIOLOGY * * *Final Report* * * DATE OF EXAM: Feb 04 2023 2:23PM WOX 5261 - XR THORACIC 3V AP/LAT/SWIMMERS / PROCEDURE REASON: Acute midline low back pain without sciatica * * * * Physician Interpretation * * * * PROCEDURE: Thoracic spine INDICATION: Acute midline low back pain without sciatica .Chronic diffuse back pain that has increased over time after having 3 children. TECHNIQUE: XR THORACIC 3V AP/LAT/SWIMMERS COMPARISON: 11/11/2013 FINDINGS: There is normal alignment without fracture or subluxation. Disc spaces are relatively well-maintained. No pedicle erosion or paraspinal abnormality is evident. DIVISION OF RADIOLOGY Provider, [facility] [place] - 02/07/2023 * * *Final Report* * * DATE OF EXAM: Feb 04 2023 2:23PM WOX 5261 - XR THORACIC 3V AP/LAT/SWIMMERS / PROCEDURE REASON: Acute midline low back pain without sciatica * * * * Physician Interpretation * * * * PROCEDURE: Thoracic spine INDICATION: Acute midline low back pain without sciatica .Chronic diffuse back pain that has increased over time after having 3 children. TECHNIQUE: XR THORACIC 3V AP/LAT/SWIMMERS COMPARISON: 11/11/2013 FINDINGS: There is normal alignment without fracture or subluxation. Disc spaces are relatively well-maintained. No pedicle erosion or paraspinal abnormality is evident. IMPRESSION IMPRESSION: Unremarkable thoracic spine. Extermination Supervisor: QAMAR Transcribe Date/Time: Feb 07 2023 6:54P Dictated by : BEAU GO MD This examination was interpreted and the report reviewed and electronically signed by: BEAU GO MD on Feb 07 2023 6:55PM EST [facility] No Panel Informationon 02-04 Radiology Study observation (narrative) [facility] XR LUMBAR GENERAL 3V AP/LAT/ L5-S1on 02-04-2023 [facility] XR Lumbar spine 3 Viewson IMPRESSION: MILD DEGENERATIVE CHANGE AND ALIGNMENT ABNORMALITIES DESCRIBED Extermination Supervisor: QAMAR Transcribe Date/Time: Feb 04 2023 3:15P Dictated by : SHERLEY RAMON MD This examination was interpreted and the report reviewed and electronically signed by: SHERLEY RAMON MD on Feb 04 2023 3:16PM EST DIVISION OF RADIOLOGY * * *Final Report* * * DATE OF EXAM: Feb 04 2023 2:23PM WOX 5228 - XR LUMBAR 3V AP/LAT/L5-S1 / PROCEDURE REASON: Acute midline low back pain without sciatica * * * * Physician Interpretation * * * * Examination: XR LUMBAR 3V AP/LAT/L5-S1 History: Acute midline low back pain without sciatica Technique: XR LUMBAR 3V AP/LAT/L5-S1 Comparison: 11/11/2013 RESULT: 5 nonrib-bearing lumbar type vertebrae. For numbering purposes, L4-5 is at the level of the iliac crest. Mild posterior position of L3 on L4 and L4 on L5. Normal lordosis. Mild spondylosis in the lower lumbar region. Disc spaces are maintained. No fracture or focal bony abnormality. Normal mineralization SI joints appear unremarkable DIVISION OF RADIOLOGY Provider, [facility] [place] - 02/04/2023 * * *Final Report* * * DATE OF EXAM: Feb 04 2023 2:23PM WOX 5228 - XR LUMBAR 3V AP/LAT/L5-S1 / PROCEDURE REASON: Acute midline low back pain without sciatica * * * * Physician Interpretation * * * * Examination: XR LUMBAR 3V AP/LAT/L5-S1 History: Acute midline low back pain without sciatica Technique: XR LUMBAR 3V AP/LAT/L5-S1 Comparison: 11/11/2013 RESULT: 5 nonrib-bearing lumbar type vertebrae. For numbering purposes, L4-5 is at the level of the iliac crest. Mild posterior position of L3 on L4 and L4 on L5. Normal lordosis. Mild spondylosis in the lower lumbar region. Disc spaces are maintained. No fracture or focal bony abnormality. Normal mineralization SI joints appear unremarkable IMPRESSION IMPRESSION: MILD DEGENERATIVE CHANGE AND ALIGNMENT ABNORMALITIES DESCRIBED Extermination Supervisor: QAMAR Transcribe Date/Time: Feb 04 2023 3:15P Dictated by : SHERLEY RAMON MD This examination was interpreted and the report reviewed and electronically signed by: SHERLEY RAMON MD on Feb 04 2023 3:16PM EST [facility] XR Lumbar spine 3 ViewsOrder ed By: Ccf Provider on 02-04-2023 [facility] HHon 11-22-2022 Hematocrit (Bld) [Volume fraction] 35.3 % Normal 34.0-46.0 [facility] ([place]) Comment on above: Performed By: #### H H #### [address] [address] Hgb 11.8 G/dL Low 12.0-16.0 [facility] ([place]) Comment on above: Performed By: #### H H #### [address] [address] RPRon 11-21-2022 Reagin Ab RPR Ql (S) Non-Reactive Normal Non-Reactive [facility] ([place]) Comment on above: Result Comment: The RPR test is a non-treponemal assay useful as an aid in the diagnosis of primary and secondary syphilis. It converts to positive generally within 2 weeks after the appearance of a lesion. This test is also useful for monitoring response to antibiotic therapy. A positive RPR screening test will be followed by the FTA ABS test. False positive RPR tests may occur in 1) patients with underlying autoimmune disorders, 2) elderly patients, 3) , and 4) other conditions with abnormal serum globulins. Performed By: #### G LF, GL1, GL2, GL3 #### [address] [address] .Auto Diffon 11-20-2022 Basophil, Absolute 0.0 10 3/mcL Normal 0.0-0.3 [facility] ([place]) Comment on above: Performed By: #### G LF, GL1, GL2, GL3 #### [address] [address] Basophils/100 WBC (Bld) 0.4 % Normal 0.0-2.5 [facility] ([place]) Comment on above: Performed By: #### G LF, GL1, GL2, GL3 #### [address] [address] Eosinophil, Absolute 0.0 10 3/mcL Normal 0.0-0.7 [facility] ([place]) Comment on above: Performed By: #### G LF, GL1, GL2, GL3 #### [address] [address] Eosinophils/100 WBC (Bld) 0.1 % Normal 0.0-6.0 [facility] ([place]) Comment on above: Performed By: #### G LF, GL1, GL2, GL3 #### [address] [address] Lymphocyte, Absolute 1.5 10 3/mcL Normal 0.9-4.3 [facility] ([place]) Comment on above: Performed By: #### G LF, GL1, GL2, GL3 #### [address] [address] Lymphocytes/100 WBC (Bld) 14.9 % Low 20.0-40.0 [facility] ([place]) Comment on above: Performed By: #### G LF, GL1, GL2, GL3 #### [address] [address] Monocyte, Absolute 0.9 10 3/mcL Normal 0.1-1.4 [facility] ([place]) Comment on above: Performed By: #### G LF, GL1, GL2, GL3 #### [address] [address] Monocytes/100 WBC (Bld) 9.1 % Normal 2.0-13.0 [facility] ([place]) Comment on above: Performed By: #### G LF, GL1, GL2, GL3 #### [address] [address] Neutrophils/100 WBC (Bld) 75.5 % High 50.0-75.0 [facility] ([place]) Comment on above: Performed By: #### G LF, GL1, GL2, GL3 #### [address] [address] .Morphon 11-20-2022 Platelet Estimate Normal Normal [facility] ([place]) Comment on above: Performed By: #### G LF, GL1, GL2, GL3 #### [place] [address] RBC morphology finding Nom (Bld) See Below Normal [facility] ([place]) Comment on above: Result Comment: RBC Morphology appears Normal Performed By: #### G LF, GL1, GL2, GL3 #### [address] [address] .NEUABSon 11-20-2022 Neutrophil, Absolute 7.8 10 3/mcL Normal 2.3-8.1 [facility] ([place]) Comment on above: Performed By: #### G LF, GL1, GL2, GL3 #### [place] [id number] ABO/Rh (Gel)on 11-20-2022 ABO/Rh Interp Positive Invalid Interpretation Code [facility] ([place]) Comment on above: Performed By: #### G LF, GL1, GL2, GL3 #### [place] [id number] ABS (Gel)on 11-20-2022 ABSC Interp (Gel) Negative Normal [facility] ([place]) Comment on above: Performed By: #### G LF, GL1, GL2, GL3 #### [place] [id number] CBCon 11-20-2022 Platelet 283 10 3/mcL Normal 150-450 [facility] ([place]) Comment on above: Performed By: #### G LF, GL1, GL2, GL3 #### [address] [address] Platelet mean volume (Bld) [Entitic vol] 10.4 fL Normal 6.6-10.5 [facility] ([place]) Comment on above: Performed By: #### G LF, GL1, GL2, GL3 #### [place] [address] Erythrocyte distribution width (RBC) [Ratio] 14.8 % Normal 11.5-15.5 [facility] ([place]) Comment on above: Performed By: #### G LF, GL1, GL2, GL3 #### [place] [address] Hematocrit (Bld) [Volume fraction] 41.0 % Normal 34.0-46.0 [facility] ([place]) Comment on above: Performed By: #### G LF, GL1, GL2, GL3 #### [place] [address] Hgb 13.7 G/dL Normal 12.0-16.0 [facility] ([place]) Comment on above: Performed By: #### G LF, GL1, GL2, GL3 #### [place] [address] MCH (RBC) [Entitic mass] 28.6 pg Normal 27.0-33.0 [facility] ([place]) Comment on above: Performed By: #### G LF, GL1, GL2, GL3 #### [place] [id number] MCHC 33.4 G/dL Normal 32.0-36.0 [facility] ([place]) Comment on above: Performed By: #### G LF, GL1, GL2, GL3 #### [place] [address] MCV (RBC) [Entitic vol] 85.4 fL Normal 80.0-99.0 [facility] ([place]) Comment on above: Performed By: #### G LF, GL1, GL2, GL3 #### [address] [address] RBC 4.81 10 6/mcL Normal 4.10-5.30 [facility] ([place]) Comment on above: Performed By: #### G LF, GL1, GL2, GL3 #### [place] [address] WBC 10.3 10 3/mcL Normal 4.5-10.8 [facility] ([place]) Comment on above: Performed By: #### G LF, GL1, GL2, GL3 #### [place] [address] GBSPCRon 11-13-2022 Group B Strep (PCR) Negative Normal Negative [facility] ([place]) Comment on above: Result Comment: Note s [id number] Performed By: #### G BSPCR #### [place] [address] Group B Strep PCR Int Normal [facility] ([place]) Comment on above: Result Comment: Grou p B Streptococcus DNA not detected by Real-Time Polymerase Chain Reaction (PCR). A negative result does rule out the possibility of Group B Streptococcus. False Negative results may occur when Group B Streptococcus concentration is below the level of detection. If the patient has signs or symptoms of infection, other laboratory tests and clinical information should be used to confirm the negative result. This test is not intended to differentiate carriers of Group B Streptococcus from those with Streptococcus disease. See Below Performed By: #### G BSPCR #### [place] [address] GL1on 11-11-2022 Glucose [Mass/Vol] 272 mg/dL High 70-139 [facility] ([place]) Comment on above: Performed By: #### G LF, GL1, GL2, GL3 #### [place] [address] GL2on 11-11-2022 Glucose [Mass/Vol] 229 mg/dL Normal [facility] ([place]) Comment on above: Performed By: #### G LF, GL1, GL2, GL3 #### [address] [address] GL3on 11-11-2022 Glucose [Mass/Vol] 83 mg/dL Normal [facility] ([place]) Comment on above: Performed By: #### G LF, GL1, GL2, GL3 #### [address] [address] GLFon 11-11-2022 Glucose [Mass/Vol] 90 mg/dL Normal 70-110 [facility] ([place]) Comment on above: Performed By: #### G LF, GL1, GL2, GL3 #### [place] [id number] 10-30-2022 Glucose [Mass/Vol] 175 mg/dL High 70-139 [facility] ([place]) Comment on above: Performed By: #### G LU1P #### [place] [id number] Progress Noteon 10-10-2022 Scheduling Representative Authentication Interface Message Text [facility] - at [place] DR[address] ALVAREZ OFFICE VISIT NOTE DOS: 10/10/2022 10/10/2022 Chief Complaint She presents for review of progress in thus far and for comprehensive review of her maternal -obstetric- risks in this . The reasons for the visit are as highlighted in the concluding summary communication to body mechanic apprentice which is my problem-based office review. History of Present Illness Bertin is a 26 y.o. female at 32w2d. Here for an office visit with was multifaceted and the history of present illness is itemized/organized under applicable individualized problem list assessments as listed below. Obstetric History OB History Para Term AB Living 8 2 2 0 5 2 SAB IAB Ectopic Multiple Live Births 4 0 0 0 2 # Outcome Date GA Lbr Rian/2nd Weight Sex Delivery Anes PTL Lv 8 Current 7 SAB 10/14/21 10w0d 6 SAB 06/2021 8w0d 5 SAB 12/2020 7w0d 4 09/2020 7w0d 3 Term 04/14/19 37w4d 3.544 kg M Vag-Spont DAMIEN 2 AB 2018 1 Term 10/05/15 39w0d 3.572 kg F Vag-Spont DAMIEN - I reviewed it at patient encounter and pertinent aspects are integrated into the below problem list-based assessment Past Medical History Past Medical History: Diagnosis Date Anxiety Depression Neurological disorder Obesity - I reviewed it at patient encounter and pertinent aspects are integrated into the below problem list-based assessment Social History - I reviewed it at patient encounter and pertinent aspects are integrated into the below problem list-based assessment Family History - I reviewed it at patient encounter, including screening genetic pedigree as available, and pertinent aspects are integrated into the below problem list-based assessment Medications and Allergies . No Known Allergies - I reviewed it at patient encounter and are integrated into the below problem list-based assessment. Allergies were reviewed Laboratory Studies and Imaging studies - I reviewed it at patient encounter and pertinent aspects are integrated into assessments. Vitals BP 103/57 Pulse 84 Temp 36.8 C (98.2 F) (Oral) Resp 18 Wt (!) 98.7 kg (217 lb 9.6 oz) LMP 02/11/2022 SpO2 98% BMI 36.21 kg/m - heart rate as per imaging report today, as applicable and available. ASSESSMENT AND PLAN After integrating maternal and obstetric and considerations, my recommendations are as assembled. Active Non-Hospital Problems Diagnosis Date Noted Recurrent loss, antepartum condition or complication 05/29/2022 05/29/2022 - Office Visit - MD Wilfred: 13w1d . Recurrent Loss: She has had 4 early losses over the past 2 years ending 2020 she had 7-week losses in September and December but did not have a D&C. The stable potentially biochemical however in June 2021 she had 8-week loss and then on October 14, 2021 she had a 10-week loss and although I do not have the ultrasound report he could be potentially a loss. Based on the foregoing she deserves work-up for antiphospholipid syndrome work-up as well as maternal karyotype to exclude balanced translocation carrier state. Genetic Risks Assessment: Screening genetic history discerned risks (ancestry, history of anomalies and history of genetic conditions or being at risk for them) were reviewed as were risk for any teratogen exposure. We explained the genetic background risks including that for aneuploidy and carrier conditions. A negative genetic history is limited in their exclusion. She developed an understanding of the risk assessments. She learned of invasive diagnostic tests and screening non-invasive cfDNA based screening as well as maternal carrier testing options available to her. She may choose genetic testing depending on her perceived utility for the information and risk tolerance. SUMMARY of Risks: Essentially her father had multiple DVTs and was diagnosed to have Leiden and she herself is heterozygous Leiden. Additionally she decides for NIPT and will consider his carrier screening and cell be drawn with body mechanic apprentice Factor 5 Leiden mutation, heterozygous 05/29/2022 10/10/2022 - Office Visit - MD Wilfred: 32w2d . Follow-up today for Leiden heterozygote: She remains free of any symptoms of DVT and remains ambulating. management with Lovenox was once again explained and reviewed. . Advice given about COVID-19 virus infection 05/29/2022 05/29/2022 - Office Visit - MD Wilfred: 13w1d . Infectious disease: She is not COVID vaccinated and she has not had the flu vaccination. The ACOG and CDC recommendation for Covid and Flu vaccination was reviewed. The CDC and ACOG recommendation are in favor of COVID vaccination and we discussed and she understands the increased risk for severe disease when COVID infection occurs during . Natural infections do not confer adequate immunity. (more content not included)... Normal [facility] CBC W Auto Differential pane l (Bld)on 08-04-2022 Basophils (Bld) [#/Vol] 0.04 10*3/uL <0.11 k/uL [facility] Basophils/100 WBC (Bld) 0.4 % [facility] Differential cell count method Nom (Bld) Auto [facility] Eosinophils (Bld) [#/Vol] 0.06 10*3/uL <0.46 k/uL [facility] Eosinophils/100 WBC (Bld) 0.6 % [facility] Erythrocyte distribution width (RBC) [Ratio] 14.5 % 11.5 - 15.0 % [facility] Hematocrit (Bld) [Volume fraction] 39.0 % 36.0 - 46.0 % [facility] Hemoglobin (Bld) [Mass/Vol] 12.8 g/dL 11.5 - 15.5 g/dL [facility] Immature granulocytes (Bld) [#/Vol] 0.05 10*3/uL <0.10 k/uL [facility] Immature granulocytes/100 WBC (Bld) 0.5 % [facility] Lymphocytes (Bld) [#/Vol] 1.80 10*3/uL 1.00 - 4.00 k/uL [facility] Lymphocytes/100 WBC (Bld) 17.7 % [facility] MCH (RBC) [Entitic mass] 29.2 pg 26.0 - 34.0 pg [facility] MCHC (RBC) [Mass/Vol] 32.8 g/dL 30.5 - 36.0 g/ dL [facility] MCV (RBC) [Entitic vol] 88.8 fL 80.0 - 100.0 fL [facility] Monocytes (Bld) [#/Vol] 0.73 10*3/uL <0.87 k/uL [facility] Monocytes/100 WBC (Bld) 7.2 % [facility] Neutrophils (Bld) [#/Vol] 7.48 10*3/uL 1.45 - 7.50 k/uL [facility] Neutrophils/100 WBC (Bld) 73.6 % [facility] Nucleated RBC (Bld) [#/Vol] <0.01 k/uL [facility] Nucleated RBC/100 WBC (Bld) [Ratio] 0.0 /100 WBC [facility] Platelet mean volume (Bld) [Entitic vol] 10.6 fL 9.0 - 12.7 fL [facility] Platelets (Bld) [#/Vol] 302 10*3/uL 150 - 400 k/uL [facility] RBC (Bld) [#/Vol] 4.39 10*6/uL 3.90 - 5.20 m/uL [facility] WBC (Bld) [#/Vol] 10.16 10*3/uL 3.70 - 11 .00 k/uL [facility] CIRANon 07-08-2022 Dil Jarvis Viper Venom 38.0 seconds Normal 30.0-42.0 [facility] ([place]) Comment on above: Performed By: #### C TRACY, B2GPGM, BETAA #### [place] [address] [place] Interpretation See Below Normal [facility] ([place]) Comment on above: Result Comment: No e vidence of lupus anticoagulant. Although results may represent valid findings for Lupus Anticoagulant, DRVVT results may be affected by presence of direct thrombin inhibitors, such as argatroban, dabigatran (Pradaxa) and Bivalirudin (Angiomax),and direct Xa inhibitors, such as rivaroxaban (Xarelto) and apixaban (Eliquis). Interpret Lupus Anticoagulant results with clinical correlation. Performed By: #### C TRACY B2GPGM, BETAA #### [address] [address] Platelet neutraliz. Negative Normal [facility] ([place]) Comment on above: Performed By: #### C TRACY, B2GPGM, BETAA #### [place] [id number] 07-07-2022 Beta2 Glycoprotein IgG <9 Normal <20 [facility] ([place]) Comment on above: Result Comment: <20 SGU Negative 20-80 SGU Low Positive >80 SGU High Positive These results were obtained with the [employer] QUANTA Lite B2 GPI IgG PADMAJA. B2 GPI IgG values obtained with different manufacturers' assay methods may not be used interchangeably. The magnitude of the reported IgG levels cannot be correlated to an endpoint titer. This test is used as an aid in diagnosis of anti-phospholipid syndrome and to estimate the risk of thrombosis in patients with established diagnosis of systemic lupus erythematous. Clinical correlation is required. Performed By: [facility] [address] [place] [address] Management Trainee: Robbin Valle III, M.D. IA#: [id number] Performed By: #### C TRACY, B2GPGM, BETAA #### [address] [address] Beta2 Glycoprotein IgM <9 Normal <20 [facility] ([place]) Comment on above: Result Comment: <20 SMU Negative 20-80 SMU Low Positive >80 SMU High positive These results were obtained with the Guardlyva QUANTA Lite B2 GPI IgM PADMAJA. B2 GPI IgM values obtained with different manufacturers' assay methods may not be used interchangeably. The magnitude of the reported IgM levels cannot be correlated to an endpoint titer. This test is used as an aid in diagnosis of anti-phospholipid syndrome and to estimate the risk of thrombosis in patients with established diagnosis of systemic lupus erythematous. Clinical correlation is required. Performed By: [facility] [address] [place] [address] Management Trainee: Robbin Valle III, M.D. CLIA#: [id number] Performed By: #### C TRACY, B2GPGM, BETAA #### [address] [address] BETAAon 07-06-2022 Beta-2 Glycoprotein Abs, IgA <10 Normal <=20 [facility] ([place]) Comment on above: Result Comment: Perf ormed By: [facility] [address] [place] [address] Victim Advocate: Ho Alcala MD, PhD Performed By: #### C TRACY, B2GPGM, BETAA #### [address] [address] Progress Noteon 07-03-2022 Scheduling Representative Authentication Interface Message Text [facility] - at [place] ALVAREZ OFFICE VISIT NOTE DOS: 07/03/2022 07/03/2022 Chief Complaint She presents for review of progress in thus far and for comprehensive review of her maternal -obstetric- risks in this . The reasons for the visit are as highlighted in the concluding summary communication to body mechanic apprentice which is my problem-based office review. History of Present Illness Bertin is a 26 y.o. female at 18w1d. Here for an office visit with was multifaceted and the history of present illness is itemized/organized under applicable individualized problem list assessments as listed below. Obstetric History OB History Para Term AB Living 8 2 2 0 5 2 SAB IAB Ectopic Multiple Live Births 4 0 0 0 2 # Outcome Date GA Lbr Rian/2nd Weight Sex Delivery Anes PTL Lv 8 Current 7 SAB 10/14/21 10w0d 6 SAB 06/2021 8w0d 5 SAB 12/2020 7w0d 4 SAB 09/2020 7w0d 3 Term 04/14/19 37w4d 3.544 kg M Vag-Spont DAMIEN 2 AB 2018 1 Term 10/05/15 39w0d 3.572 kg F Vag-Spont DAMIEN - I reviewed it at patient encounter and pertinent aspects are integrated into the below problem list-based assessment Past Medical History Past Medical History: Diagnosis Date Anxiety Depression Neurological disorder Obesity - I reviewed it at patient encounter and pertinent aspects are integrated into the below problem list-based assessment Social History - I reviewed it at patient encounter and pertinent aspects are integrated into the below problem list-based assessment Family History - I reviewed it at patient encounter, including screening genetic pedigree as available, and pertinent aspects are integrated into the below problem list-based assessment Medications and Allergies . No Known Allergies - I reviewed it at patient encounter and are integrated into the below problem list-based assessment. Allergies were reviewed Laboratory Studies and Imaging studies - I reviewed it at patient encounter and pertinent aspects are integrated into assessments. Vitals BP 118/57 Pulse 87 Temp 36.7 C (98.1 F) (Oral) Resp 18 Wt 93.3 kg (205 lb 9.6 oz) LMP 02/11/2022 SpO2 97% BMI 34.21 kg/m - heart rate as per imaging report today, as applicable and available. ASSESSMENT AND PLAN After integrating maternal and obstetric and considerations, my recommendations are as assembled. Active Non-Hospital Problems Diagnosis Date Noted Recurrent loss, antepartum condition or complication 05/29/2022 05/29/2022 - Office Visit - MD Wilfred: 13w1d . Recurrent Loss: She has had 4 early losses over the past 2 years ending 2020 she had 7-week losses in September and December but did not have a D&C. The stable potentially biochemical however in June 2021 she had 8-week loss and then on October 14, 2021 she had a 10-week loss and although I do not have the ultrasound report he could be potentially a loss. Based on the foregoing she deserves work-up for antiphospholipid syndrome work-up as well as maternal karyotype to exclude balanced translocation carrier state. Genetic Risks Assessment: Screening genetic history discerned risks (ancestry, history of anomalies and history of genetic conditions or being at risk for them) were reviewed as were risk for any teratogen exposure. We explained the genetic background risks including that for aneuploidy and carrier conditions. A negative genetic history is limited in their exclusion. She developed an understanding of the risk assessments. She learned of invasive diagnostic tests and screening non-invasive cfDNA based screening as well as maternal carrier testing options available to her. She may choose genetic testing depending on her perceived utility for the information and risk tolerance. SUMMARY of Risks: Essentially her father had multiple DVTs and was diagnosed to have Leiden and she herself is heterozygous Leiden. Additionally she decides for NIPT and will consider his carrier screening and cell be drawn with body mechanic apprentice Factor 5 Leiden mutation, heterozygous 05/29/2022 05/29/2022 - Office Visit - MD Wilfred: 13w1d . Leiden Factor-Heterozygote : She has no personal history of DVT. BMI and nicotine consumption add to the risk of DVT however Lovenox will be indicated for immobilization and full 6 weeks, particularly if she has had a delivery. Advice given about COVID-19 virus infection 05/29/2022 05/29/2022 - Office Visit - MD Wilfred: 13w1d . Infectious disease: She is not COVID vaccinated and she has not had the flu vaccination. The ACOG and CDC recommendation for Covid and Flu vaccination was reviewed. The CDC and ACOG recommendation are in favor of COVID vaccination and we discussed and she understands the increased risk for severe disease when COVID infection occurs during . N (more content not included)... Normal [facility] 05-30-2022 Cardiolipin IgA Ab <9.0 Normal <12.0 [facility] ([place]) Comment on above: Result Comment: <12 APL Negative 12-20 APL Indeterminate >20 APL Positive The following results were obtained with the Guardlyva QUANTA Lite CADY IgA III PADMAJA. Cardiolipin IgA values obtained with the different manufacturers' assay methods may not be used interchangeably. The magnitude of the reported IgA levels cannot be correlated to an endpoint titer. This test is used as an aid in diagnosis of anti-phospholipid syndrome. The test may occasionally be positive in patients with a range of underlying conditions, secondary syphilis, HIV infection, active Hepatitis C, endocarditis, among others. Clinical correlation is required. Performed By: [facility] [address] [place] [address] Management Trainee: Robbin Valle III, M.D. CLIA#: [id number] Performed By: #### G LF, GL1, GL2, GL3 #### [address] 05-30-2022 IgG Cardiolipin Ab <9.0 Normal <15.0 [facility] ([place]) Comment on above: Result Comment: <15 GPL Negative 15-20 GPL Indeterminate >20 GPL Positive The following results were obtained with the [employer] QUANTA Lite CADY IgG III PADMAJA. Cardiolipin IgG values obtained with the different manufacturers' assay methods may not be used interchangeably. The magnitude of the reported IgG levels cannot be correlated to an endpoint titer. This test is used as an aid in diagnosis of anti-phospholipid syndrome. The test may occasionally be positive in patients with a range of underlying conditions, secondary syphilis, HIV infection, active Hepatitis C, endocarditis, among others. Clinical correlation is required. Performed By: [facility] [employer] [address] [place] [address] Management Trainee: Robbin Valle III, M.D. CLIA#: [id number] Performed By: #### G LF, GL1, GL2, GL3 #### [address] 05-30-2022 IgM Cardiolipin Ab <9.0 Normal <12.5 [facility] ([place]) Comment on above: Result Comment: <12. 5 MPL Negative 12.5-20 MPL Indeterminate >20 MPL Positive The following results were obtained with the [employer] QUANTA Lite CADY IgM III PADMAJA. Cardiolipin IgM values obtained with the different manufacturers' assay methods may not be used interchangeably. The magnitude of the reported IgM levels cannot be correlated to an endpoint titer. ??? This test is used as an aid in diagnosis of anti-phospholipid syndrome. The test may occasionally be positive in patients with a range of underlying conditions, secondary syphilis, HIV infection, active Hepatitis C, endocarditis, among others. Clinical correlation is required. Performed By: [facility] [employer] [facility] [place] [id number] Management Trainee: Robbin Valle III, M.D. CLIA#: [id number] Performed By: #### G LF, GL1, GL2, GL3 #### [place] [address] Progress Noteon 05-29-2022 Scheduling Representative Authentication Interface Message Text [facility] - at [place] [address] ALVAREZ OFFICE VISIT NOTE DOS: 05/29/2022 05/29/2022 Chief Complaint She presents for review of progress in thus far and for comprehensive review of her maternal -obstetric- risks in this . The reasons for the visit are as highlighted in the concluding summary communication to body mechanic apprentice which is my problem-based office review. History of Present Illness Bertin is a 26 y.o. female at 13w1d. She denies history of for fever, chills, breathing difficulties, chest pain, or abdominal pain. The patient feels well. No history of vaginal bleeding or leakage of fluid vaginally. Obstetric History OB History Para Term AB Living 8 2 2 0 5 2 SAB IAB Ectopic Multiple Live Births 4 0 0 0 2 # Outcome Date GA Lbr Rian/2nd Weight Sex Delivery Anes PTL Lv 8 Current 7 SAB 10/14/21 10w0d 6 SAB 06/2021 8w0d 5 SAB 12/2020 7w0d 4 SAB 09/2020 7w0d 3 Term 04/14/19 37w4d 3.544 kg M Vag-Spont DAMIEN 2 AB 2018 1 Term 10/05/15 39w0d 3.572 kg F Vag-Spont DAMIEN - I reviewed it at patient encounter and pertinent aspects are integrated into the below problem list-based assessment Past Medical History No past medical history on file. - I reviewed it at patient encounter and pertinent aspects are integrated into the below problem list-based assessment Social History - I reviewed it at patient encounter and pertinent aspects are integrated into the below problem list-based assessment Family History - I reviewed it at patient encounter, including screening genetic pedigree as available, and pertinent aspects are integrated into the below problem list-based assessment Medications and Allergies . No Known Allergies - I reviewed it at patient encounter and are integrated into the below problem list-based assessment. Allergies were reviewed Laboratory Studies and Imaging studies - I reviewed it at patient encounter and pertinent aspects are integrated into assessments. Vitals BP 110/60 Pulse 83 Temp 36.7 C (98.1 F) Resp 18 Ht 165.1 cm Wt 90.5 kg (199 lb 8 oz) LMP 02/11/2022 SpO2 97% BMI 33.20 kg/m - heart rate as per imaging report today, as applicable and available. ASSESSMENT AND PLAN After integrating maternal and obstetric and considerations, my recommendations are as assembled. Active Non-Hospital Problems Diagnosis Date Noted Recurrent loss, antepartum condition or complication 05/29/2022 05/29/2022 - Office Visit - MD Wilfred: 13w1d . Recurrent Loss: She has had 4 early losses over the past 2 years ending 2020 she had 7-week losses in September and December but did not have a D&C. The stable potentially biochemical however in June 2021 she had 8-week loss and then on October 14, 2021 she had a 10-week loss and although I do not have the ultrasound report he could be potentially a loss. Based on the foregoing she deserves work-up for antiphospholipid syndrome work-up as well as maternal karyotype to exclude balanced translocation carrier state. Genetic Risks Assessment: Screening genetic history discerned risks (ancestry, history of anomalies and history of genetic conditions or being at risk for them) were reviewed as were risk for any teratogen exposure. We explained the genetic background risks including that for aneuploidy and carrier conditions. A negative genetic history is limited in their exclusion. She developed an understanding of the risk assessments. She learned of invasive diagnostic tests and screening non-invasive cfDNA based screening as well as maternal carrier testing options available to her. She may choose genetic testing depending on her perceived utility for the information and risk tolerance. SUMMARY of Risks: Essentially her father had multiple DVTs and was diagnosed to have Leiden and she herself is heterozygous Leiden. Additionally she decides for NIPT and will consider his carrier screening and cell be drawn with body mechanic apprentice Factor 5 Leiden mutation, heterozygous 05/29/2022 05/29/2022 - Office Visit - MD Wilfred: 13w1d . Leiden Factor-Heterozygote : She has no personal history of DVT. BMI and nicotine consumption add to the risk of DVT however Lovenox will be indicated for immobilization and full 6 weeks, particularly she has had a delivery. Advice given about COVID-19 virus infection 05/29/2022 05/29/2022 - Office Visit - MD Wilfred: 13w1d . Infectious disease: She is not COVID vaccinated and she has not had the flu vaccination. The ACOG and CDC recommendation for Covid and Flu vaccination was reviewed. The CDC and ACOG recommendation are in favor of COVID vaccination and we discussed and she understands the increased risk for severe disease when COVID infection occurs during . Natural infections do not confer adequate immunity. (more content not included)... Normal [facility] Absolute lymphocyte counton 04-27-2022 Lymphocytes Auto (Unsp spec) [#/Vol] 1.33 10*3/uL 0.83-4.51 [facility] Work Phone: Basophil percentageon 2021 Basophil percentage 0 SEEN /hpf 0-5 [facility] Work Phone: Basophils/100 WBC (Bld) 0.4 % 0-1 [facility] Work Phone: Eosinophils/100 WBC (Bld) 0.5 % 0-5 [facility] Work Phone: Neutrophils (Bld) [#/Vol] 5.9 10*3/uL 2.0-7.7 [facility] Work Phone: Neutrophils/100 WBC (Bld) 72.2 % 47-70 [facility] Work Phone: WBC (Bld) [#/Vol] 8.1 10*3/uL 4.4-11.0 [facility] Work Phone: Bilirubin Test strip Ql (U)o n 04-27-2022 Bilirubin Ql (U) Negative Negative [facility] Work Phone: Blood erythrocytes count (nu mber/volume)on 04-27-2022 RBC (Bld) [#/Vol] 4.34 10*6/uL 4.2-5.4 [facility] Work Phone: Blood hemoglobin measurement (mass/volume)on 04-27-2022 Hemoglobin (Bld) [Mass/Vol] 12.4 g/dL 12.0-15.0 [facility] Work Phone: Blood lymphocytes/100 leukoc yteson 04-27-2022 Lymphocytes/100 WBC (Bld) 16.4 % 19-41 [facility] Work Phone: Blood monocytes/100 leukocyt eson 04-27-2022 Monocytes/100 WBC (Bld) 10.3 % 0-10 [facility] Work Phone: [phone] Blood platelet mean volumeon 04-27-2022 Platelet mean volume (Bld) [Entitic vol] 9.8 fL 6.2-12.0 [facility] Work Phone: [phone] Determination of erythrocyte mean corpuscular volume (MCV)on 04-27-2022 MCV (RBC) [Entitic vol] 88.9 fL 81-99 [facility] Work Phone: [phone] Hematocrit Auto (Bld) [Volum e fraction]on 04-27-2022 Hematocrit (Bld) [Volume fraction] 38.6 % 37-47 [facility] Work Phone: [phone] Ketones Test strip Ql (U)on 04-27-2022 Ketones Ql (U) 15 mg/dl Negative [facility] Work Phone: [phone] Laboratory - Hematology and Cell countson 04-27-2022 Erythrocyte distribution width (RBC) [Entitic vol] 43.0 fL 35.1-43.9 [facility] Work Phone: [phone] Erythrocyte distribution width (RBC) [Ratio] 13.1 % 11.6-14.6 [facility] Work Phone: [phone] Immature granulocytes/100 WBC (Bld) 0.200 % 0.0-0.9 [facility] Work Phone: [phone] Comment on above: IG% - Immature Granu locytes (promyelocytes, myelocytes and metamyelocytes) > 1% indicates that a LEFT SHIFT is Present. MCH (RBC) [Entitic mass] 28.6 pg 27.0-32.0 [facility] Work Phone: [phone] Nucleated RBC/100 WBC (Bld) [Ratio] 0 % 0-5 [facility] Work Phone: [phone] MCHC Auto (RBC) [Mass/Vol]on 04-27-2022 MCHC (RBC) [Mass/Vol] 32.1 g/dL 32-36 [facility] Work [facility]: Mucus LM Ql (Urine sed)on Mucus Ql (Urine sed) 0 SEEN /hpf [facility] Work Phone: Nitrite Test strip Ql (U)on 04-27-2022 Nitrite Ql (U) Negative Negative [facility] Work Phone: Platelets bldon 04-27-2022 Platelets (Bld) [#/Vol] 348 10*3/uL 150-450 [facility] Work Phone: Protein Test strip Ql (U)on 04-27-2022 Protein Ql (U) Negative Negative [facility] Work Phone: Serum or plasma choriogonado tropin detectionon 04-27-2022 HCG ( [place]) [place] [address] mIU/mL <4 [facility] Work Phone: Comment on above: hCG levels with Gest ational AgeGestational Age hCG mIU/mL (IU/L)0.2 - 1 week 5 - 501-2 weeks 50 - 5002-3 weeks 100 - 93918-6 weeks 500 - 219560-4 weeks 1000 - 690317-8 weeks 07728 - 100,0006-8 weeks 59915 - 200,0002-3 months 12876 - 100,000 Squamous epithelial cells de tection in urine sediment by light microscopyon 04-27-2022 Epithelial cells.squamous LM Ql (Urine sed) 0 SEEN /hpf 5-10 [facility] Work Phone: Urine blood detectionon 04-15 RBC Ql (U) Negative Negative [facility] Work Phone: RBC Ql (U) 0 SEEN /hpf 0-5 [facility] Work Phone: Urine clarityon 04-27-2022 Clarity (U) Clear Clear [facility] Work Phone: Urine color determinationon 04-27-2022 Color (U) Straw Yellow [facility] Work Phone: Urine glucose detectionon Glucose Ql (U) Normal mg/dl Normal [facility] Work Phone: Urine leukocyte esterase det ection by dipstickon 04-27-2022 Leukocyte esterase Test strip Ql (U) Negative Negative [facility] Work Phone: Urine pHon 04-27-2022 pH (U) 6.0 [pH] 5.0 - 8.0 [facility] Work Phone: Urine sediment bacteria coun t by microscopy (number/high power field)on 04-27-2022 Bacteria LM.HPF (Urine sed) [#/Area] 0 /[HPF] None Seen [facility] Work Phone: Urine specific gravity measu rementon 04-27-2022 Specific gravity (U) [Rel density] 1.010 1.002-1.030 [facility] Work Phone: Urobilinogen Auto test strip Ql (U)on 04-27-2022 Urobilinogen Ql (U) Normal mg/dl Normal [facility] Work Phone: Basophil percentageon 2021 WBC (Bld) [#/Vol] 5.9 10*3/uL 4.4-11.0 [facility] Work Phone: Beta hCG serum qualon 2021 Beta HCG ( test) Ql Negative [facility] Work Phone: Blood erythrocytes count (nu mber/volume)on 02-12-2022 RBC (Bld) [#/Vol] 4.15 10*6/uL 4.2-5.4 [facility] Work Phone: Blood hemoglobin measurement (mass/volume)on 02-12-2022 Hemoglobin (Bld) [Mass/Vol] 12.0 g/dL 12.0-15.0 [facility] Work Phone: Blood platelet mean volumeon 02-12-2022 Platelet mean volume (Bld) [Entitic vol] 10.2 fL 6.2-12.0 [facility] Work Phone: Determination of erythrocyte mean corpuscular volume (MCV)on 02-12-2022 MCV (RBC) [Entitic vol] 89.9 fL 81-99 [facility] Work Phone: [phone] Hematocrit Auto (Bld) [Volum e fraction]on 02-12-2022 Hematocrit (Bld) [Volume fraction] 37.3 % 37-47 [facility] Work Phone: [phone] Laboratory - Hematology and Cell countson 02-12-2022 Erythrocyte distribution width (RBC) [Entitic vol] 45.1 fL 35.1-43.9 [facility] Work Phone: [phone] Erythrocyte distribution width (RBC) [Ratio] 13.6 % 11.6-14.6 [facility] Work Phone: [phone] MCH (RBC) [Entitic mass] 28.9 pg 27.0-32.0 [facility] Work Phone: [phone] MCHC Auto (RBC) [Mass/Vol]on 02-12-2022 MCHC (RBC) [Mass/Vol] 32.2 g/dL 32-36 [facility] Work Phone: [phone] Platelets bldon 02-12-2022 Platelets (Bld) [#/Vol] 310 10*3/uL 150-450 [facility] Work Phone: LABORATORYOrdered By: Amaya Blackwood on 10-14-2021 ABO and Rh group Nom (Bld) Blood group A Rh(D) positive Invalid Interpretation Code AH BB Auto SS Blood group antibody screen Ql NEG (10/14/21 10:12 AM) Invalid Interpretation Code AH BB Auto SS LABORATORYOrdered By: SYSTEM SYSTEM on 10-14-2021 Basophils (Bld) [#/Vol] 0.10 103/mcL Invalid Interpretation Code 0.00 - 0.27 10^3/mcL AH Remisol SS Basophils/100 WBC (Bld) 0.8 % Invalid Interpretation Code 0.0 - 2.5 % AH Remisol SS Eosinophils (Bld) [#/Vol] 0.00 103/mcL Invalid Interpretation Code 0.00 - 0.65 10^3/mcL AH Remisol SS Eosinophils/100 WBC (Bld) 0.4 % Invalid Interpretation Code 0.0 - 6.0 % AH Remisol SS Erythrocyte distribution width (RBC) [Ratio] 14.1 % Invalid Interpretation Code 11.5 - 15.5 % AH Remisol SS Hematocrit (Bld) [Volume fraction] 39.3 % Invalid Interpretation Code 34.0 - 46.0 % AH Remisol SS Hemoglobin (Bld) [Mass/Vol] 13.1 G/dL Invalid Interpretation Code 12.0 - 16.0 G/dL AH Remisol SS Lymphocytes (Bld) [#/Vol] 2.30 103/mcL Invalid Interpretation Code 0.90 - 4.32 10^3/mcL AH Remisol SS Lymphocytes/100 WBC (Bld) 24.1 % Invalid Interpretation Code 20.0 - 40.0 % AH Remisol SS MCH (RBC) [Entitic mass] 29.0 pg Invalid Interpretation Code 27.0 - 33.0 pg AH Remisol SS MCHC (RBC) [Mass/Vol] 33.4 G/dL Invalid Interpretation Code 32.0 - 36.0 G/dL AH Remisol SS MCV (RBC) [Entitic vol] 86.9 fL Invalid Interpretation Code 80.0 - 99.0 fL AH Remisol SS Monocytes (Bld) [#/Vol] 0.80 103/mcL Invalid Interpretation Code 0.09 - 1.40 10^3/mcL AH Remisol SS Monocytes/100 WBC (Bld) 8.0 % Invalid Interpretation Code 2.0 - 13.0 % AH Remisol SS Neutrophils (Bld) [#/Vol] 6.30 103/mcL Invalid Interpretation Code 2.25 - 8.10 10^3/mcL AH Remisol SS Neutrophils/100 WBC (Bld) 66.7 % Invalid Interpretation Code 50.0 - 75.0 % AH Remisol SS Platelet mean volume (Bld) [Entitic vol] 8.8 fL Invalid Interpretation Code 6.6 - 10.5 fL AH Remisol SS Platelets (Bld) [#/Vol] 226 103/mcL Invalid Interpretation Code 150 - 450 10^3/mcL AH Remisol SS Platelets LM Ql (Bld) Normal *NA* (10/14/21 10:12 AM) Invalid Interpretation Code AH Remisol SS RBC (Bld) [#/Vol] 4.53 106/mcL Invalid Interpretation Code 4.10 - 5.30 10^6/mcL AH Remisol SS RBC morphology finding Nom (Bld) Normal *NA* (10/14/21 10:12 AM) Invalid Interpretation Code AH Remisol SS WBC (Bld) [#/Vol] 9.50 103/mcL Invalid Interpretation Code 4.50 - 10.80 10^3/mcL AH Remisol SS Vital Signs Date Time Vital Sign Value Performing Clinician Facility 08-22-2024 14:47-0400 Body mass index (BMI) [Ratio] 26.36 kg/m2 Sirisha Gomes MD Work Phone: [facility] 08-22-2024 14:47-0400 Body weight 70.76 kg Sirisha Gomes MD Work Phone: [facility] 08-22-2024 14:47-0400 Diastolic blood pressure 64 mm[Hg] Sirisha Gomes MD Work Phone: [facility] 08-22-2024 14:47-0400 Systolic blood pressure 110 mm[Hg] Sirisha Gomes MD Work Phone: [facility] 08-15-2024 15:27-0500 Body height 163.8 cm Joseph Medrano MD Work Phone: [facility] 08-15-2024 15:27-0500 Body mass index (BMI) [Ratio] 26.87 kg/m2 Joseph Medrano MD Work Phone: [facility] 08-15-2024 15:27-0500 Body weight 72.12 kg Joseph Medrano MD Work Phone: [facility] 07-15-2024 16:01-0500 Body mass index (BMI) [Ratio] 26.36 kg/m2 Julianna Velazquez MD Work Phone: [facility] 07-15-2024 16:01-0500 Body weight 70.76 kg Julianna Velazquez MD Work Phone: [facility] 07-15-2024 16:01-0500 Diastolic blood pressure 60 mm[Hg] Julianna Velazquez MD Work Phone: [facility] 07-15-2024 16:01-0500 Systolic blood pressure 100 mm[Hg] Julianna Velazquez MD Work Phone: [facility] 07-07-2024 11:58-0500 Body mass index (BMI) [Ratio] 26.53 kg/m2 Julianna Velazquez MD Work Phone: [facility] 07-07-2024 11:58-0500 Body weight 71.22 kg Julianna Velazquez MD Work Phone: [facility] 07-07-2024 11:58-0500 Diastolic blood pressure 72 mm[Hg] Julianna Velazquez MD Work Phone: [facility] 07-07-2024 11:58-0500 Systolic blood pressure 120 mm[Hg] Julianna Velazquez MD Work Phone: [facility] 07-01-2024 11:44-0500 Body mass index (BMI) [Ratio] 27.14 kg/m2 Rosana Evans OBGYN NURSE.SURVEY TECHNOLOGIST Work Phone: [facility] 07-01-2024 11:44-0500 Body weight 72.85 kg Rosana Evans OBGYN NURSE.SURVEY TECHNOLOGIST Work Phone: [facility] 07-01-2024 11:44-0500 Diastolic blood pressure 60 mm[Hg] Rosana Evans OBGYN NURSE.SURVEY TECHNOLOGIST Work Phone: [facility] 07-01-2024 11:44-0500 Heart rate 90 /min Rosana Evans OBGYN NURSE.SURVEY TECHNOLOGIST Work Phone: [facility] 07-01-2024 11:44-0500 SaO2% (BldA) [Mass fraction] 98 % Rosana Evans OBGYN NURSE.SURVEY TECHNOLOGIST Work Phone: [facility] 07-01-2024 11:44-0500 Systolic blood pressure 90 mm[Hg] Rosana Evans OBGYN NURSE.SURVEY TECHNOLOGIST Work Phone: [facility] 06-23-2024 10:35-0500 Body mass index (BMI) [Ratio] 30.76 kg/m2 Joseph Medrano MD Work Phone: [facility] 06-23-2024 10:35-0500 Body weight 82.56 kg Joseph Medrano MD Work Phone: [facility] 06-23-2024 10:35-0500 Diastolic blood pressure 78 mm[Hg] Joseph Medrano MD Work Phone: [facility] 06-23-2024 10:35-0500 Systolic blood pressure 116 mm[Hg] Joseph Medrano MD Work Phone: [facility] 06-17-2024 13:12-0500 Body mass index (BMI) [Ratio] 29.91 kg/m2 Joseph Medrano MD Work Phone: [facility] 06-17-2024 13:12-0500 Body weight 80.29 kg Joseph Medrano MD Work Phone: [facility] 06-17-2024 13:12-0500 Diastolic blood pressure 62 mm[Hg] Joseph Medrano MD Work Phone: [facility] 06-17-2024 13:12-0500 Systolic blood pressure 114 mm[Hg] Joseph Medrano MD Work Phone: [facility] 06-03-2024 15:18-0500 Body mass index (BMI) [Ratio] 29.74 kg/m2 Cyndee King MD Work Phone: [facility] 06-03-2024 15:18-0500 Body weight 79.83 kg Cyndee King MD Work Phone: [facility] 06-03-2024 15:18-0500 Diastolic blood pressure 62 mm[Hg] Cyndee King MD Work Phone: [facility] 06-03-2024 15:18-0500 Systolic blood pressure 110 mm[Hg] Cyndee King MD Work Phone: [facility] 05-20-2024 10:33-0500 Body mass index (BMI) [Ratio] 28.86 kg/m2 Simona Yanez MD Work Phone: [facility] 05-20-2024 10:33-0500 Body weight 77.47 kg Simona Yanez MD Work Phone: [facility] 05-20-2024 10:33-0500 Diastolic blood pressure 60 mm[Hg] Simona Yanez MD Work Phone: [facility] 05-20-2024 10:33-0500 Systolic blood pressure 102 mm[Hg] Simona Yanez MD Work Phone: [facility] 04-26-2024 15:45-0500 Body mass index (BMI) [Ratio] 28.12 kg/m2 Simona Yanez MD Work Phone: [facility] 04-26-2024 15:45-0500 Body weight 75.48 kg Simona Yanez MD Work Phone: [facility] 04-26-2024 15:45-0500 Diastolic blood pressure 60 mm[Hg] Simona Yanez MD Work Phone: [facility] 04-26-2024 15:45-0500 Systolic blood pressure 102 mm[Hg] Simona Yanez MD Work Phone: [facility] 04-15-2024 14:46-0400 Body mass index (BMI) [Ratio] 27.72 kg/m2 Simona Yanez MD Work Phone: [facility] 04-15-2024 14:46-0400 Body weight 74.39 kg Simona Yanez MD Work Phone: [facility] 04-15-2024 14:46-0400 Diastolic blood pressure 64 mm[Hg] Siomna Yanez MD Work Phone: [facility] 04-15-2024 14:46-0400 Systolic blood pressure 110 mm[Hg] Simona Yanez MD Work Phone: [facility] 04-01-2024 14:44-0400 Body mass index (BMI) [Ratio] 27.48 kg/m2 Belgica Thomas APRN.CNM Work Phone: [facility] 04-01-2024 14:44-0400 Body weight 73.75 kg Belgica Thomas APRN.CNM Work Phone: [facility] 04-01-2024 14:44-0400 Diastolic blood pressure 64 mm[Hg] Belgica William NASH.CNM Work Phone: [facility] 04-01-2024 14:44-0400 Systolic blood pressure 118 mm[Hg] Belgica William NASH.CNM Work Phone: [facility] 03-14-2024 10:57-0400 Body height 163.8 cm Oz Terrazas MD Work Phone: [facility] 03-14-2024 10:57-0400 Body mass index (BMI) [Ratio] 26.92 kg/m2 Oz Terrazas MD Work Phone: [facility] 03-14-2024 10:57-0400 Body weight 72.25 kg Oz Terrazas MD Work Phone: [facility] 03-14-2024 10:57-0400 Diastolic blood pressure 64 mm[Hg] Oz Terrazas MD Work Phone: [facility] 03-14-2024 10:57-0400 Heart rate 78 /min Oz Terrazas MD Work Phone: [facility] 03-14-2024 10:57-0400 SaO2% (BldA) [Mass fraction] 100 % Oz Terrazas MD Work Phone: [facility] 03-14-2024 10:57-0400 Systolic blood pressure 90 mm[Hg] Oz Terrazas MD Work Phone: [facility] 03-04-2024 13:47-0400 Body mass index (BMI) [Ratio] 26.53 kg/m2 Sirisha Gomes MD Work Phone: [facility] 03-04-2024 13:47-0400 Body weight 71.22 kg Sirisha Gomes MD Work Phone: [facility] 03-04-2024 13:47-0400 Diastolic blood pressure 68 mm[Hg] Sirisha Gomes MD Work Phone: [facility] 03-04-2024 13:47-0400 Systolic blood pressure 116 mm[Hg] Sirisha Gomes MD Work Phone: [facility] 02-16-2024 14:07-0400 Body mass index (BMI) [Ratio] 25.86 kg/m2 Belgica Thomas OBGYN NURSE.CNM Work Phone: [facility] 02-16-2024 14:07-0400 Body weight 69.4 kg Belgica Thomas OBGYN NURSE.CNM Work Phone: [facility] 02-16-2024 14:07-0400 Diastolic blood pressure 60 mm[Hg] Belgica Thomas OBGYN NURSE.CNM Work Phone: [facility] 02-16-2024 14:07-0400 Systolic blood pressure 120 mm[Hg] Belgica Thomas OBGYN NURSE.CNM Work Phone: [facility] 02-01-2024 11:23-0400 Body mass index (BMI) [Ratio] 25.37 kg/m2 Te Gao MD Work Phone: [facility] 02-01-2024 11:23-0400 Body temperature 98.4 [degF] Te Gao MD Work Phone: [facility] 02-01-2024 11:23-0400 Body weight 68.1 kg Te Gao MD Work Phone: [facility] 02-01-2024 11:23-0400 Diastolic blood pressure 60 mm[Hg] Te Gao MD Work Phone: [facility] 02-01-2024 11:23-0400 Heart rate 75 /min Te Gao MD Work Phone: [facility] 02-01-2024 11:23-0400 Respiratory rate 20 /min Te Gao MD Work Phone: [facility] 02-01-2024 11:23-0400 SaO2% (BldA) [Mass fraction] 98 % Te Gao MD Work Phone: [facility] 02-01-2024 11:23-0400 Systolic blood pressure 98 mm[Hg] Te Gao MD Work Phone: [facility] 01-12-2024 08:18-0400 Body height 163.8 cm Catrina Dayton OBGYN NURSE.SURVEY TECHNOLOGIST Work Phone: [facility] 01-12-2024 08:18-0400 Body mass index (BMI) [Ratio] 24.61 kg/m2 Catrina Froy OBGYN NURSE.SURVEY TECHNOLOGIST Work Phone: [facility] 01-12-2024 08:18-0400 Body weight 66.04 kg Catrina Froy OBGYN NURSE.SURVEY TECHNOLOGIST Work Phone: [facility] 01-12-2024 08:18-0400 Diastolic blood pressure 60 mm[Hg] Catrina Froy OBGYN NURSE.SURVEY TECHNOLOGIST Work Phone: [facility] 01-12-2024 08:18-0400 Systolic blood pressure 100 mm[Hg] Catrina Dayton OBGYN NURSE.SURVEY TECHNOLOGIST Work Phone: [facility] 10-27-2023 12:44-0400 Body mass index (BMI) [Ratio] 23.85 kg/m2 Sonam Praisler-Wood OBGYN NURSE.SURVEY TECHNOLOGIST Work Phone: [facility] 10-27-2023 12:44-0400 Body temperature 99 [degF] Sonam Praisler-Wood OBGYN NURSE.SURVEY TECHNOLOGIST Work Phone: [facility] 10-27-2023 12:44-0400 Body weight 65 kg Sonam Praisler-Wood OBGYN NURSE.SURVEY TECHNOLOGIST Work Phone: [facility] 10-27-2023 12:44-0400 Diastolic blood pressure 70 mm[Hg] Sonam Praisler-Wood OBGYN NURSE.SURVEY TECHNOLOGIST Work Phone: [facility] 10-27-2023 12:44-0400 Heart rate 106 /min Sonam Praisler-Wood OBGYN NURSE.SURVEY TECHNOLOGIST Work Phone: [facility] 10-27-2023 12:44-0400 Respiratory rate 18 /min Sonam Praisler-Wood OBGYN NURSE.SURVEY TECHNOLOGIST Work Phone: [facility] 10-27-2023 12:44-0400 SaO2% (BldA) [Mass fraction] 98 % Sonam Praisler-Wood OBGYN NURSE.SURVEY TECHNOLOGIST Work Phone: [facility] 10-27-2023 12:44-0400 Systolic blood pressure 128 mm[Hg] Sonam Praisler-Wood OBGYN NURSE.SURVEY TECHNOLOGIST Work Phone: [facility] 09-14-2023 11:36-0400 Body weight 69.13 kg Rosana Evans OBGYN NURSE.SURVEY TECHNOLOGIST Work Phone: [facility] 09-14-2023 11:36-0400 Diastolic blood pressure 64 mm[Hg] Rosana Evans OBGYN NURSE.SURVEY TECHNOLOGIST Work Phone: [facility] 09-14-2023 11:36-0400 Heart rate 64 /min Rosana Evans OBGYN NURSE.SURVEY TECHNOLOGIST Work Phone: [facility] 09-14-2023 11:36-0400 Respiratory rate 14 /min Rosana Evans OBGYN NURSE.SURVEY TECHNOLOGIST Work Phone: [facility] 09-14-2023 11:36-0400 Systolic blood pressure 112 mm[Hg] Rosana Evans OBGYN NURSE.SURVEY TECHNOLOGIST Work Phone: [facility] 03-30-2023 09:27-0400 Body height 165.1 cm Oz Terrazas MD Work Phone: [facility] 03-30-2023 09:27-0400 Body weight 72.58 kg Oz Terrazas MD Work Phone: [facility] 03-30-2023 09:27-0400 Diastolic blood pressure 66 mm[Hg] Oz Terrazas MD Work Phone: [facility] 03-30-2023 09:27-0400 Heart rate 88 /min Oz Terrazas MD Work Phone: [facility] 03-30-2023 09:27-0400 SaO2% (BldA) [Mass fraction] 97 % Oz Terrazas MD Work Phone: [facility] 03-30-2023 09:27-0400 Systolic blood pressure 104 mm[Hg] Oz Terrazas MD Work Phone: [facility] 02-04-2023 13:06-0400 Body weight 80.2 kg Rosana Evans OBGYN NURSE.SURVEY TECHNOLOGIST Work Phone: [facility] 02-04-2023 13:06-0400 Diastolic blood pressure 60 mm[Hg] Rosana Evans OBGYN NURSE.SURVEY TECHNOLOGIST Work Phone: [facility] 02-04-2023 13:06-0400 Heart rate 72 /min Rosana Evans OBGYN NURSE.SURVEY TECHNOLOGIST Work Phone: [facility] 02-04-2023 13:06-0400 Respiratory rate 12 /min Rosana Evans OBGYN NURSE.SURVEY TECHNOLOGIST Work Phone: [facility] 02-04-2023 13:06-0400 Systolic blood pressure 112 mm[Hg] Rosana Evans OBGYN NURSE.SURVEY TECHNOLOGIST Work Phone: [facility] 12-19-2022 17:05-0400 Body temperature 97.9 [degF] Shelby Athy PA-C Work Phone: [facility] 12-19-2022 17:05-0400 Body weight 86.09 kg Shelby Athy PA-C Work Phone: [facility] 12-19-2022 17:05-0400 Diastolic blood pressure 68 mm[Hg] Shelby Athy PA-C Work Phone: [facility] 12-19-2022 17:05-0400 Heart rate 95 /min Shelby Athy PA-C Work Phone: [facility] 12-19-2022 17:05-0400 Respiratory rate 18 /min Shelby Athy PA-C Work Phone: [facility] 12-19-2022 17:05-0400 SaO2% (BldA) [Mass fraction] 97 % Shelby Delacruzjustin LANE-Misty Work Phone: [facility] 12-19-2022 17:05-0400 Systolic blood pressure 122 mm[Hg] Shelby Buenrostro PA-Misty Work Phone: [facility] 11-18-2022 12:34-0400 Body height 165.1 cm PEARL JOSEPH MD [facility] 11-18-2022 12:34-0400 Body temperature 98.06 [degF] PEARL JOSEPH MD [facility] 11-18-2022 12:34-0400 Body weight 101 kg PEARL JOSEPH MD [facility] 11-18-2022 12:34-0400 Body weight 37.05 kg/m2 PEARL JOSEPH MD [facility] 11-18-2022 12:34-0400 Diastolic Blood Pressure Non-Invasive 61 1 PEARL JOSEPH MD [facility] 11-18-2022 12:34-0400 Heart rate 86 /min PEARL JOSEPH MD [facility] 11-18-2022 12:34-0400 Reason For Taking VItal Signs PEARL JOSEPH MD [facility] 11-18-2022 12:34-0400 Respiratory rate 16 /min PEARL JOSEPH MD [facility] 11-18-2022 12:34-0400 Systolic Blood Pressure Non-Invasive 115 1 PEARL JOSEPH MD [facility] 09-18-2022 12:47-0400 Body weight 98.07 kg Rosana Evans APRN.SURVEY TECHNOLOGIST Work Phone: [facility] 09-18-2022 12:47-0400 Diastolic blood pressure 60 mm[Hg] Rosana Evans APRN.SURVEY TECHNOLOGIST Work Phone: [facility] 09-18-2022 12:47-0400 Heart rate 96 /min Rosana Evans OBGYN NURSE.SURVEY TECHNOLOGIST Work Phone: [facility] 09-18-2022 12:47-0400 Respiratory rate 14 /min Rosana Evans OBGYN NURSE.SURVEY TECHNOLOGIST Work Phone: [facility] 09-18-2022 12:47-0400 Systolic blood pressure 130 mm[Hg] Rosana Evans OBGYN NURSE.SURVEY TECHNOLOGIST Work Phone: [facility] 08-04-2022 10:36-0500 Body height 167 cm Rosana Evans OBGYN NURSE.SURVEY TECHNOLOGIST Work Phone: [facility] 08-04-2022 10:36-0500 Body weight 96.62 kg Rosana Evans OBGYN NURSE.SURVEY TECHNOLOGIST Work Phone: [facility] 08-04-2022 10:36-0500 Diastolic blood pressure 60 mm[Hg] Rosana Evans OBGYN NURSE.SURVEY TECHNOLOGIST Work Phone: [facility] 08-04-2022 10:36-0500 Heart rate 104 /min Rosana Evans OBGYN NURSE.SURVEY TECHNOLOGIST Work Phone: [facility] 08-04-2022 10:36-0500 Respiratory rate 12 /min Rosana Evans OBGYN NURSE.SURVEY TECHNOLOGIST Work Phone: [facility] 08-04-2022 10:36-0500 Systolic blood pressure 124 mm[Hg] Rosana Evans OBGYN NURSE.SURVEY TECHNOLOGIST Work Phone: [facility] 04-27-2022 10:30-0500 Body height 165.1 cm [facility] Work Phone: 04-27-2022 10:30-0500 Body mass index (BMI) [Ratio] 32.5 kg/m2 [facility] Work Phone: 04-27-2022 10:30-0500 Body temperature 98.1 [degF] [facility] Work Phone: 04-27-2022 10:30-0500 Body weight 88.9 kg [facility] Work Phone: 04-27-2022 10:30-0500 Diastolic blood pressure 71 mm[Hg] [facility] Work Phone: 04-27-2022 10:30-0500 Heart rate 90 /min [facility] Work Phone: 04-27-2022 10:30-0500 Respiratory rate 18 /min [facility] Work Phone: 04-27-2022 10:30-0500 SaO2% (BldA) [Mass fraction] 98 % [facility] Work Phone: 04-27-2022 10:30-0500 Systolic blood pressure 126 mm[Hg] [facility] Work Phone: 02-12-2022 11:39-0400 Body height 165.1 cm [facility] Work Phone: 02-12-2022 11:39-0400 Body mass index (BMI) [Ratio] 32.4 kg/m2 [facility] Work Phone: 02-12-2022 11:39-0400 Body temperature 98.1 [degF] [facility] Work Phone: 02-12-2022 11:39-0400 Body weight 88.45 kg [facility] Work Phone: 02-12-2022 11:39-0400 Diastolic blood pressure 69 mm[Hg] [facility] Work Phone: 02-12-2022 11:39-0400 Heart rate 84 /min [facility] Work Phone: 02-12-2022 11:39-0400 Respiratory rate 16 /min [facility] Work Phone: 02-12-2022 11:39-0400 SaO2% (BldA) [Mass fraction] 98 % [facility] Work Phone: 02-12-2022 11:39-0400 Systolic blood pressure 129 mm[Hg] [facility] Work Phone: 10-14-2021 14:00-0400 Diastolic blood pressure 63 mm[Hg] HUI VASSAS DO [facility] 10-14-2021 14:00-0400 Mean blood pressure 80 mm[Hg] HUI VASSAS DO [facility] 10-14-2021 14:00-0400 Respiratory rate 20 /min HUI VASSAS DO [facility] 10-14-2021 14:00-0400 Systolic blood pressure 113 mm[Hg] HUI VASSAS DO [facility] 10-14-2021 13:45-0400 Diastolic blood pressure 65 mm[Hg] HUI VASSAS DO [facility] 10-14-2021 13:45-0400 Heart rate 82 /min HUI VASSAS DO [facility] 10-14-2021 13:45-0400 Respiratory rate 14 /min HUI VASSAS DO [facility] 10-14-2021 13:45-0400 Systolic blood pressure 119 mm[Hg] HUI VASSAS DO [facility] 10-14-2021 13:30-0400 Diastolic blood pressure 77 mm[Hg] HUI VASSAS DO [facility] 10-14-2021 13:30-0400 Heart rate 78 /min HUI VASSAS DO [facility] 10-14-2021 13:30-0400 Mean blood pressure 91 mm[Hg] HUI VASSAS DO [facility] 10-14-2021 13:30-0400 Respiratory rate 14 /min HUI VASSAS DO [facility] 10-14-2021 13:30-0400 Systolic blood pressure 120 mm[Hg] HUI VASSAS DO [facility] 10-14-2021 13:16-0400 Mean blood pressure 89 mm[Hg] HUI VASSAS DO [facility] 10-14-2021 13:01-0400 Body temperature 97.88 [degF] HUI VASSAS DO [facility] 10-14-2021 12:53-0400 Diastolic Blood Pressure NBP 61 1 HUI VASSAS DO [facility] 10-14-2021 12:53-0400 Systolic Blood Pressure NBP 105 1 HUI VASSAS DO [facility] 10-14-2021 12:50-0400 Diastolic Blood Pressure NBP 61 1 HUI VASSAS DO [facility] 10-14-2021 12:50-0400 Systolic Blood Pressure NBP 108 1 HUI VASSAS DO [facility] 10-14-2021 12:47-0400 Diastolic Blood Pressure NBP 59 1 HUI VASSAS DO [facility] 10-14-2021 12:47-0400 Systolic Blood Pressure NBP 98 1 HUI MADRIGALS DO [facility] 10-14-2021 09:23-0400 Body temperature 98.24 [degF] HUI MADRIGALS DO [facility] 10-14-2021 09:23-0400 Heart rate 75 /min HUI MADRIGALS DO [facility] 10-14-2021 09:18-0400 Body height 167.6 cm HUI MADRIGALS DO [facility] 10-14-2021 09:18-0400 Body weight 94.5 kg HUI SCOTT DO [facility] 10-14-2021 09:18-0400 Body weight 33.64 kg/m2 HUI SCOTT DO [facility] Encounters Encounter Date Encounter Type Care Provider Facility Start: 08-22-2024 End: 08-22-2024 ambulatory JOSEPH MEDRANO Facility:[facility] Start: 08-22-2024 End: 08-22-2024 Patient encounter procedure Sirisha Gomes MD Work Phone: OB/Gynecology Comment on above: Nexplanon insertion (Primary Dx); Insertion of implantable subdermal contraceptive Start: 08-15-2024 End: 08-15-2024 ambulatory JOSEPH MEDRANO Facility:[facility] Start: 08-15-2024 End: 08-15-2024 Patient encounter procedure Joseph Medrano MD Work Phone: OB/Gynecology Comment on above: care and examination (Primary Dx); Nexplanon insertion Start: 07-15-2024 End: 07-15-2024 Patient encounter procedure Julianna Velazquez MD Work Phone: OB/Gynecology Comment on above: Encounter for initia l prescription of implantable subdermal contraceptive (Primary Dx); control counseling Start: 07-15-2024 End: 07-15-2024 ambulatory JULIANNA VELAZQUEZ Facility:[facility] Start: 07-15-2024 End: 07-15-2024 Telephone encounter Julianna Velazquez MD Work Phone: OB/Gynecology Comment on above: Appointment Start: 07-07-2024 End: 07-07-2024 Patient encounter procedure Julianna Velazquez MD Work Phone: OB/Gynecology Comment on above: hemorrhag e, unspecified type (Primary Dx); Follow-up exam Start: 07-07-2024 End: 07-07-2024 ambulatory [facility] Work Phone: OB/Gynecology Start: 07-07-2024 End: 07-07-2024 Patient encounter procedure [facility] OB/Gynecology Start: 07-06-2024 End: 07-06-2024 Telephone encounter Sirisha Gomes MD Work Phone: OB/Gynecology Comment on above: Retained POC Start: 07-04-2024 End: 07-22-2024 Telephone encounter Carlos Bird DO Work Phone: [facility] Comment on above: Orders Results Start: 07-04-2024 End: 07-04-2024 ambulatory CARLOS BIRD Facility:[facility] Start: 07-04-2024 End: 07-04-2024 Subsequent hospital visit by physician [facility] Work Phone: Radiology Comment on above: SOB (shortness of br eath) on exertion [R06.02] Start: 07-02-2024 End: 07-02-2024 Emergency department patient visit Yeison Llamas Facility:[facility] Start: 07-01-2024 End: 07-01-2024 Telephone encounter Carlos Bird DO Work Phone: [facility] Comment on above: PA required Abnormal uterine ble eding, (Primary Dx) Start: 07-01-2024 End: 07-01-2024 Office outpatient visit 25 minutes Rosana Evans APRN.CNP Work Phone: [facility] Comment on above: Abnormal uterine ble eding, (Primary Dx); Seizure disorder (HCC); SOB (shortness of breath) on exertion; RUQ abdominal pain; History of gestational diabetes; Factor V Leiden (HCC) Start: 07-01-2024 End: 07-01-2024 ambulatory CARLOS BIRD Facility:[facility] Start: 06-27-2024 End: 06-27-2024 ambulatory Danyelle Gutierrez APRN.CNM Work Phone: OB/Gynecology Comment on above: Ob Delivery Note Start: 06-27-2024 End: 06-28-2024 Evaluation and management of inpatient Danyelle Gutierrez Facility:[facility] Start: 06-23-2024 End: 06-23-2024 ambulatory JOSEPH MEDRANO Facility:[facility] Start: 06-23-2024 End: 06-23-2024 Patient encounter procedure Joseph Medrano MD Work Phone: OB/Gynecology Comment on above: Supervision of high risk in third trimester (Primary Dx); Seizure disorder (HCC); 37 weeks gestation of ; Decreased movements in third trimester, single or unspecified fetus Start: 06-17-2024 End: 06-17-2024 ambulatory ANNEL RANDALL Facility:[facility] Start: 06-17-2024 End: 06-17-2024 Patient encounter procedure Joseph Medrano MD Work Phone: OB/Gynecology Comment on above: Supervision of high risk in third trimester (Primary Dx); 36 weeks gestation of ; Seizure disorder (HCC); Short interval between pregnancies affecting , antepartum; Factor V Leiden (HCC) Start: 06-16-2024 ambulatory CARLOS Marin it:[facility] Start: 06-16-2024 End: 06-16-2024 Subsequent hospital visit by physician Christopher Monet [facility] Work Phone: OB/Gynecology Comment on above: Supervision of other high risk pregnancies, second trimester [O09.892] Start: 06-03-2024 End: 06-03-2024 ambulatory CYNDEE KING Facility:[facility] Start: 06-03-2024 End: 06-03-2024 Patient encounter procedure Cyndee King MD Work Phone: OB/Gynecology Comment on above: High-risk in third trimester (Primary Dx); Supervision of other high risk pregnancies, second trimester; Short interval between pregnancies affecting , antepartum; Abnormal thyroid blood test; Seizure disorder (HCC) Start: 05-20-2024 End: 05-20-2024 ambulatory CARLOS BIRD Facility:[facility] Start: 05-20-2024 End: 05-20-2024 Patient encounter procedure Simona Yanez MD Work Phone: OB/Gynecology Comment on above: 32 weeks gestation o f (Primary Dx); Supervision of other high risk pregnancies, second trimester Encounter for ultras ound to check growth (Primary Dx); 32 weeks gestation of Start: 05-09-2024 End: 05-09-2024 Telephone encounter Belgica Thomas APRN.CNM Work Phone: OB/Gynecology Start: 05-06-2024 End: 05-06-2024 ambulatory [facility] Work Phone: [address] Comment on above: M-Power Marichuy to Jasmeet edwards Start: 05-06-2024 End: 05-06-2024 E-mail encounter from caregiver [facility] Work Phone: [address] Start: 04-27-2024 End: 04-27-2024 Telephone encounter Sirisha Fields RN OB/Gynecology Comment on above: 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 - O ther (PRAF) Start: 04-26-2024 End: 04-26-2024 Patient encounter procedure Simona Yanez MD Work Phone: OB/Gynecology Comment on above: 29 weeks gestation o f (Primary Dx); Supervision of other high risk pregnancies, second trimester; Seizure disorder (HCC); Need for vaccination; Need for influenza vaccination Start: 04-26-2024 End: 04-26-2024 ambulatory BELGICA THOMAS Facility:[facility] Start: 04-15-2024 End: 04-15-2024 ambulatory SIMONA YANEZ Facility:[facility] Start: 04-15-2024 End: 04-15-2024 Patient encounter procedure Simona Yanez MD Work Phone: OB/Gynecology Comment on above: Supervision of other high risk pregnancies, second trimester (Primary Dx); 27 weeks gestation of ; History of gestational diabetes in prior , currently ; Seizure disorder (HCC); Factor V Leiden (HCC) Start: 04-13-2024 End: 04-13-2024 ambulatory OZ Goldman FLCHASE Facility:[facility] Start: 04-04-2024 End: 04-04-2024 E-mail encounter from caregiver Christopher [facility] Work Phone: [address] Start: 04-04-2024 End: 04-04-2024 Patient encounter procedure [facility] Work Phone: [address] Comment on above: M-Power Referral Start: 04-01-2024 End: 04-01-2024 ambulatory BEL[facility]ICA [facility] Facility:[facility] Start: 04-01-2024 End: 04-01-2024 Patient encounter procedure Belgica William CHEN Work Phone: OB/Gynecology Comment on above: Supervision of other high risk pregnancies, second trimester (Primary Dx); 27 weeks gestation of ; Seizure disorder (HCC); History of gestational diabetes in prior , currently ; Factor V Leiden (HCC); Encounter for supervision of normal in multigravida; Short interval between pregnancies affecting , antepartum; History of labor Start: 03-14-2024 End: 03-14-2024 ambulatory OZ TERRAZAS Facility:[facility] Start: 03-14-2024 End: 03-14-2024 Patient encounter procedure Oz Terrazas MD Work Phone: Epilepsy Comment on above: Seizure disorder (HC C) (Primary Dx) Start: 03-04-2024 End: 03-04-2024 ambulatory CARLOS Boswell BIRD Facility:[facility] Start: 03-04-2024 End: 03-04-2024 Office outpatient visit 15 minutes Sirisha Gomes MD Work Phone: OB/Gynecology Comment on above: Supervision of other high risk pregnancies, second trimester (Primary Dx); Short interval between pregnancies affecting , antepartum; Factor V Leiden (HCC); History of gestational diabetes in prior , currently ; Vaginal yeast infection Start: 03-03-2024 End: 03-03-2024 Emergency department patient visit Gildardoleni Dunlap Facility:[facility] Start: 02-22-2024 End: 02-22-2024 ambulatory Belgica Thomas APRN.CNM Work Phone: OB/Gynecology Comment on above: Received Outside Med [email or web address] Records Start: 02-17-2024 End: 02-17-2024 Telephone encounter Sirisha Fields RN Maternal Medicine Comment on above: 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 - O ther (PRAF) Start: 02-16-2024 End: 02-16-2024 ambulatory [facility] Facility:[facility] Start: 02-16-2024 End: 02-16-2024 Patient encounter procedure Belgica Thomas APRN.CNM Work Phone: OB/Gynecology Comment on above: Supervision of other high risk pregnancies, second trimester (Primary Dx); 20 weeks gestation of ; Short interval between pregnancies affecting , antepartum; History of gestational diabetes in prior , currently ; Seizure disorder (HCC); Factor V Leiden (HCC); depression; Calculus of gallbladder without cholecystitis without obstruction Encounter for anatomic survey (Primary Dx); 20 weeks gestation of Start: 02-12-2024 End: 02-12-2024 Telephone encounter Oz Terrazas MD Work Phone: Neurology Comment on above: Insurance Authorizat ion (lamotrigine) Start: 02-04-2024 End: 02-04-2024 [facility] Facility:[facility] Start: 02-04-2024 End: 02-04-2024 Subsequent hospital visit by physician [facility] Work Phone: Radiology Comment on above: Diarrhea, unspecifie d type [R19.7] Start: 02-01-2024 End: 02-01-2024 ambulatory [facility] Facility:[facility] Start: 02-01-2024 End: 02-01-2024 Office outpatient visit 15 minutes Te Gao MD Work Phone: [facility] Comment on above: Nausea and vomiting, unspecified vomiting type (Primary Dx) Start: 01-27-2024 End: 02-04-2024 Telephone encounter Joceline Diaz PA-C Work Phone: Neurology Comment on above: Results Start: 01-26-2024 End: 01-26-2024 ambulatory OZ REYNOSO Facility:[facility] Start: 01-14-2024 Telephone encounter 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 RN Maternal Medicine Comment on above: 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 - O ther (PRAF) Start: 01-12-2024 End: 02-18-2024 Telephone encounter Catrina Cortezf OBGYN NURSE.SURVEY TECHNOLOGIST Work Phone: OB/Gynecology Comment on above: Appointment Start: 01-12-2024 End: 01-12-2024 ambulatory [facility] Facility:[facility] Start: 01-12-2024 End: 01-12-2024 Patient encounter procedure Catrina Dayton OBGYN NURSE.SURVEY TECHNOLOGIST Work Phone: OB/Gynecology Comment on above: 15 weeks gestation o f (Primary Dx); Screening for cervical cancer; anxiety; Vaginal irritation; Diarrhea, unspecified type; Short interval between pregnancies affecting , antepartum; Encounter for supervision of normal in multigravida; History of gestational diabetes in prior , currently ; History of polyhydramnios; Factor V Leiden (HCC); depression Start: 01-11-2024 Telephone encounter Catrina tubbs OBGYN NURSE.SURVEY TECHNOLOGIST Work Phone: OB/Gynecology Comment on above: Future Appointment Start: 11-11-2023 Telephone encounter Rey Campbell [facility] Comment on above: PostOp Follow-up Start: 11-09-2023 Telephone encounter Rey Campbell [facility] Comment on above: PostOp Follow-up Start: 11-05-2023 Orders Only Ashley lopez OBGYN NURSE.SURVEY TECHNOLOGIST Work Phone: Neurology Comment on above: 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) (Primary Dx) Start: 11-03-2023 End: 11-05-2023 Evaluation and management of inpatient OZ TERRAZAS Facility:[facility] Start: 10-29-2023 Orders Only Oz Campbell Work Phone: Neurology Epilepsy Comment on above: Seizure disorder (HC C) (Primary Dx) Start: 10-27-2023 End: 10-27-2023 ambulatory CARLOS BIRD Facility:[facility] Start: 10-27-2023 End: 10-27-2023 Patient encounter procedure Sonam Tucker APRN.SURVEY TECHNOLOGIST Work Phone: [facility] Comment on above: Sore throat (Primary Dx); Irregular periods; Dysuria; Strep throat; test positive; Otalgia of left ear Start: 10-19-2023 Telephone encounter Carlos vigil DO Work Phone: [facility] [place] Comment on above: Appointment Start: 09-24-2023 End: 09-24-2023 ambulatory KALIA DO [facility] Start: 09-24-2023 End: 09-24-2023 Subsequent hospital visit by physician Gareth [facility] [place] Work Phone: Radiology Comment on above: Acute midline low ba ck pain without sciatica [M54.50] Start: 09-14-2023 Refill Rosana Evans APRN.ALEX Work Phone: [facility] [place] Comment on above: Refill Request Start: 09-14-2023 End: 09-14-2023 ambulatory CARLOS BIRD Facility:[facility] Start: 09-14-2023 End: 09-14-2023 Patient encounter procedure Rosana Evans APRN.SURVEY TECHNOLOGIST Work Phone: [facility] [place] Comment on above: Acute pain of right knee (Primary Dx); Acute midline low back pain without sciatica; Pain of right hip Start: 09-08-2023 End: 09-09-2023 Evaluation and management of inpatient NEYMAR PADILLA Facility:[facility] Start: 04-01-2023 Telephone encounter Oz Mackenzie am, MD Work Phone: Neurology Comment on above: Request Outside [facility] Records ([facility]) Start: 03-30-2023 End: 03-30-2023 Patient encounter procedure Oz Terrazas MD Work Phone: Epilepsy Comment on above: Seizure disorder (HC C) (Primary Dx) Start: 03-11-2023 Telephone encounter Neurology Provid er Neurology Comment on above: Appointment Start: 02-04-2023 End: 02-04-2023 Subsequent hospital visit by physician Xr [facility] [place] Work Phone: Radiology Comment on above: Acute midline low ba ck pain without sciatica [M54.50] Start: 02-04-2023 End: 02-04-2023 Patient encounter procedure Rosana Evans APRN.SURVEY TECHNOLOGIST Work Phone: [facility] [place] Comment on above: Acute midline low ba ck pain without sciatica (Primary Dx); Pain of left hip; Burping; Nausea; Pain in both wrists; Jaw pain; Tension headache Start: 12-19-2022 End: 12-19-2022 Patient encounter procedure Shelby ALONZOC Work Phone: [facility] Comment on above: Pain of breast durin g (Primary Dx) Start: 11-20-2022 End: 11-22-2022 Evaluation and management of inpatient DARA PITTS DO Facility:A Start: 11-18-2022 End: 11-18-2022 ambulatory PEARL JOSEPH MD Facility:[facility] Start: 11-18-2022 End: 11-18-2022 SAME DAY STAY PEARL JOSEPH MD [facility] Start: 11-11-2022 End: 11-16-2022 ambulatory CHRIS PEMBERTON OBGYN NURSE-SURVEY TECHNOLOGIST Facility:[facility] Start: 11-11-2022 End: 11-16-2022 ambulatory FABIO MCFARLAND MD Facility:[facility] Start: 10-30-2022 End: 11-04-2022 ambulatory KAYLENE BUENROSTRO APRN-ALEX Facility:[facility] Start: 10-10-2022 End: 10-10-20[facility] Start: 09-18-2022 End: 09-18-2022 Patient encounter procedure Rosana Evans OBGYN NURSE.SURVEY TECHNOLOGIST Work Phone: [facility] Comment on above: Viral warts, unspeci fied type (Primary Dx) Start: 08-06-2022 Telephone encounter Rosana rivera OBGYN NURSE.SURVEY TECHNOLOGIST Work Phone: [facility] Comment on above: Results Start: 08-04-2022 End: 08-04-2022 Patient encounter procedure Rosana Evans OBGYN NURSE.SURVEY TECHNOLOGIST Work Phone: [facility] Comment on above: Wellness examination (Primary Dx); Special screening examination for viral disease; Screening for HIV (human immunodeficiency virus); Nonintractable epilepsy without status epilepticus, unspecified epilepsy type (HCC); Chronic midline low back pain without sciatica; 22 weeks gestation of ; Bilateral wrist pain Start: 08-04-2022 End: 08-04-2022 Patient encounter status Rosana Evans OBGYN NURSE.SURVEY TECHNOLOGIST Work Phone: [facility] Start: 07-17-2022 Telephone encounter Carlos vigil DO Work Phone: [facility] Comment on above: Establish Care Start: 07-03-2022 End: 07-08-[address] MELVA ALVAREZ MD Facility:[facility] Start: 07-03-2022 End: 07-03-2022 ambulatory KAYLENE BUENROSTRO [facility] Start: 05-29-2022 End: 06-03-[address] KALIA MOSCOSO DO Facility:[facility] Start: 05-29-2022 End: 05-29-2022 ambulatory KALIA MOSCOSO [facility] Start: 04-27-2022 End: 04-27-2022 Emergency department patient visit [facility] Start: 02-12-2022 End: 02-12-2022 Emergency department patient visit [facility] Start: 10-14-2021 End: 10-14-2021 Observation HUI SCOTT DO [facility] Procedures Date Procedure Procedure Detail Performing Clinician Start: 08-22-2024 UA DIP,URINE HCG (POC) Sirisha Gomes MD Work Phone: Start: 07-07-2024 Us pelvic nonobstetr ic real-time image complete Julianna Velazquez MD Work Phone: Start: 07-04-2024 Us abdominal real ti me w/image documentation Rosana Evans OBGYN NURSE.SURVEY TECHNOLOGIST Work Phone: Start: 07-01-2024 Urnls dip stick/tabl et rgnt auto w/o microscopy Rosana Evans OBGYN NURSE.SURVEY TECHNOLOGIST Work Phone: Start: 06-23-2024 Urnls dip stick/tabl et rgnt non-auto w/o micrscp Joseph Medrano MD Work Phone: Start: 06-17-2024 Urnls dip stick/tabl et rgnt non-auto w/o micrscp Annel Randall OBGYN NURSE.SURVEY TECHNOLOGIST Work Phone: Start: 06-03-2024 Urnls dip stick/tabl et rgnt non-auto w/o micrscp Cyndee King MD Work Phone: Start: 05-20-2024 RSV VACCINE, BIVALEN T (ABRYSVO) Simona Yanez MD Work Phone: Start: 05-20-2024 Us preg uterus after 1st trimest 06/15 gestation Belgica Thomas OBGYN NURSE.CNM Work Phone: Start: 02-16-2024 Us preg uterus after 1st trimest 06/15 gestation Catrina Mcduffie OBGYN NURSE.SURVEY TECHNOLOGIST Work Phone: Start: 02-01-2024 Antibody screen CARLOS BIRD Comment on above: Order Comment: Speci men Type: BLOOD SPECIMENOrdering Facility: [facility] Address: [address] [place] [address] Performed By: #### T SPN ####CC MAIN BLOOD BANKCLIA [id number] BASIA STRINGER [id number] [id number] [place] Start: 10-27-2023 UA DIP,URINE HCG (POC) [facility] Provider Start: 10-27-2023 Urnls dip stick/tabl et rgnt auto w/o microscopy Sonam Tucker OBGYN NURSE.SURVEY TECHNOLOGIST Work Phone: Start: 10-27-2023 STREP A MOLECULAR (POC) Sonam Tucker OBGYN NURSE.SURVEY TECHNOLOGIST Work Phone: Start: 09-24-2023 Radiologic exam knee complete 4/more views Rosana Evans APRN.SURVEY TECHNOLOGIST Work Phone: Start: 02-04-2023 Radex hip unilateral with pelvis 2-3 views Rosana Evans APRN.SURVEY TECHNOLOGIST Work Phone: Start: 04-27-2022 Transvaginal obstetr ic ultrasonography Termination of SACHIN PIOTR SCOTT DO Plan of Treatment Date Care Activity Detail Author Start: 04-26-2034 Urine microalbumin profile DTaP,Tdap,Td Vaccine (11 - Td or Tdap) [facility] [facility] Start: 11-13-2032 Urine microalbumin profile [facility] Start: 01-11-2027 Screening for malign ant neoplasm of cervix Cervical Cancer Screening [facility] Start: 09-13-2024 Covid-19 Vaccine () Covid-19 Vaccine () [facility] Comment on above: Postponed from 02/13 (Declined at this time) Start: 08-18-2024 End: 08-18-2024 Patient encounter procedure 08/18/2024 2:50 PM EST Office Visit OB/Gynecology [address] [place] [address] Simona Yanez MD [address] [place] [address] Nexplonon insert OB/Gynecology Comment on above: Nexplonon insert Start: 08-17-2024 End: 08-17-2024 Patient encounter procedure 08/17/2024 2:40 PM EST Office Visit Family Medicine [place] [address] [place], [place] [id number] Rosana Evans APRN.SURVEY TECHNOLOGIST [address] [place] [place] [address] Med follow up Family [facility] Comment on above: Med follow up Start: 08-15-2024 End: 08-15-2024 Patient encounter procedure 08/15/2024 11:20 AM EST Office Visit Epilepsy [address] [place] [id number] Oz Terrazas MD [address] [id number] 6 mo vince Epilepsy Comment on above: 6 mo vince Start: 08-12-2024 End: 08-12-2024 Patient encounter procedure 08/12/2024 10:50 AM EST Office Visit OB/Gynecology [address] [place] [address] Julianna Velazquez MD [address] [place] [address] PP OB/Gynecology Comment on above: PP Start: 07-18-2024 End: 10-17-2024 Hepatic function 2000 panel - Serum or Plasma HEPATIC FUNCTION PNL Lab Routine Abnormal uterine bleeding, Factor V Leiden (HCC) Expected: 07/18/2024, Expires: 10/17/2024 [facility] Work Phone: Comment on above: Expected: 07/18/2024 , Expires: 10/17/2024 Start: 07-15-2024 End: 07-15-2024 Patient encounter procedure 07/15/2024 4:00 PM EST Office Visit OB/Gynecology [address] [place] [address] Julianna Velazquez MD [address] [place] [address] Discuss control OB/Gynecology Comment on above: Discuss contro l Start: 07-07-2024 End: 07-07-2024 Patient encounter procedure 07/07/2024 2:20 PM EST Office Visit OB/Gynecology [address] [place] [address] Julianna Velazquez MD [address] [place] [address] PP-R/O retained products per OB/Gynecology Comment on above: PP-R/O retained prod ucts per Start: 07-04-2024 End: 07-04-2024 Patient encounter procedure 07/04/2024 8:30 AM EST Appointment Radiology [address] [place] [address] SOB (shortness of breath) on exertion [R06.02] Radiology Comment on above: SOB (shortness of br eath) on exertion [R06.02] Start: 07-01-2024 End: 09-30-2024 CBC W Auto Differential panel - Blood [facility] Work Phone: Comment on above: Expected: 07/01/2024 , Expires: 09/30/2024 Start: 07-01-2024 End: 09-30-2024 Comprehensive metabolic 2000 panel - Serum or Plasma [facility] Comment on above: Expected: 07/01/2024 , Expires: 09/30/2024 Start: 07-01-2024 End: 09-30-2024 Ferritin [Mass/volume] in Serum or Plasma [facility] Comment on above: Expected: 07/01/2024 , Expires: 09/30/2024 Start: 07-01-2024 End: 09-30-2024 Hemoglobin A1c in Blood [facility] Comment on above: Expected: 07/01/2024 , Expires: 09/30/2024 Start: 07-01-2024 End: 09-30-2024 Iron and Iron binding capacity panel - Serum or Plasma [facility] Comment on above: Expected: 07/01/2024 , Expires: 09/30/2024 Start: 06-30-2024 End: 06-30-2024 Patient encounter procedure 06/30/2024 3:45 PM EST Routine Office Visit OB/Gynecology [address] [place] [address] Annel Randall APRN.SURVEY TECHNOLOGIST [address] [place] [address] OB OB/Gynecology Comment on above: OB Start: 06-23-2024 End: 06-23-2024 Patient encounter procedure 06/23/2024 10:20 AM EST Routine Office Visit OB/Gynecology [address] [place] [address] Joseph Medrano MD [address] [place] [address] OB Routine ok per Dr. GONZALEZ OB/Gynecology Comment on above: OB Routine ok per Dr Irish GONZALEZ Start: 06-21-2024 End: 09-20-2024 lamoTRIgine [Mass/volume] in Serum or Plasma LAMOTRIGINE Lab Routine Seizure disorder (HCC) Expected: 06/21/2024 (Approximate), Expires: 09/20/2024 [facility] Comment on above: Expected: 06/21/2024 (Approximate), Expires: 09/20/2024 Start: 06-20-2024 End: 06-20-2024 ambulatory 06/20/2024 10:30 AM EST Results Only [place] [facility] Draw Station [address] [place] [address] [place] [facility] Draw Station Start: 06-17-2024 End: 06-17-2024 Patient encounter procedure 06/17/2024 1:15 PM EST Routine Office Visit OB/Gynecology [address] [place] [address] Belgica Thomas APRN.CNM [address] [place] [address] OB Routine OB/Gynecology Comment on above: OB Routine Start: 06-17-2024 End: 06-17-2024 ambulatory 06/17/2024 11:45 AM EST Results Only [place] [facility] Draw Station [address] [place] [address] [place] [facility] Draw Station Start: 06-16-2024 End: 06-16-2024 Patient encounter procedure 06/16/2024 5:00 PM EST Appointment OB/Gynecology [address] [place] [address] L&D, [place] [address] [place] [address] Phone consult with Alvarado. Please call [phone] to reschedule OB/Gynecology Comment on above: Phone consult with Brandon damon. Please call [phone] to reschedule Start: 06-02-2024 End: 06-02-2024 Patient encounter procedure 06/02/2024 10:30 AM EST Routine Office Visit OB/Gynecology [address] [place] [address] Simona Yanez MD [address] [place] [address] OB Routine OB/Gynecology Comment on above: OB Routine Start: 05-25-2024 End: 05-25-2024 Patient encounter procedure 05/25/2024 5:00 PM EST Appointment OB/Gynecology [address] [place] [address] L&[place], [place] [address] [place] [address] Phone consult with Alvarado. Please call [phone] to reschedule OB/Gynecology Comment on above: Phone consult with Brandon damon. Please call [phone] to reschedule Start: 05-21-2024 End: 08-20-2024 lamoTRIgine [Mass/volume] in Serum or Plasma LAMOTRIGINE Lab Routine Seizure disorder (HCC) Expected: 05/21/2024 (Approximate), Expires: 08/20/2024 [facility] Comment on above: Expected: 05/21/2024 (Approximate), Expires: 08/20/2024 Start: 05-21-2024 End: 05-21-2024 ambulatory 05/21/2024 11:00 AM EST Results Only [place] [facility] Draw Station [address] [place] [address] [place] [facility] Draw Station Start: 05-20-2024 End: 05-20-2024 ambulatory 05/20/2024 11:45 AM EST Results Only [place] [facility] Draw Station [address] [place] [address] [place] [facility] Draw Station Start: 05-20-2024 End: 05-20-2024 Patient encounter procedure Maternal Medicine Comment on above: Growth US OB Routine Start: 05-14-2024 RSV Vaccine (1 - Ris k 1-dose series) RSV Vaccine (1 - Risk 1-dose series) [facility] Start: 05-09-2024 End: 05-09-2024 Patient encounter procedure 05/09/2024 2:30 PM EST Routine Office Visit OB/Gynecology [address] [place] [address] Belgica Thomas APRN.[facility] [address] [place] [address] ob OB/Gynecology Comment on above: ob Start: 05-05-2024 RSV Vaccine (1 - Ris k 1-dose series) RSV Vaccine (1 - Risk 1-dose series) [facility] Start: 04-26-2024 End: 04-26-2024 Patient encounter procedure 04/26/2024 3:40 PM EST Routine Office Visit OB/Gynecology [address] [place] [address] Simona Yanez MD [address] [place] [address] OB Routine OB/Gynecology Comment on above: OB Routine Start: 04-26-2024 End: 04-26-2024 ambulatory 04/26/2024 3:00 PM EST Results Only [place] [facility] Laboratory [address] [place] [address] labs/glucose [place] [facility] Laboratory Comment on above: labs/glucose Start: 04-21-2024 End: 07-21-2024 lamoTRIgine [Mass/volume] in Serum or Plasma LAMOTRIGINE Lab Routine Seizure disorder (HCC) Expected: 04/21/2024, Expires: 07/21/2024 [facility] Comment on above: Expected: 04/21/2024 , Expires: 07/21/2024 Start: 04-15-2024 End: 04-15-2024 Patient encounter procedure 04/15/2024 2:40 PM EDT Routine Office Visit OB/Gynecology [address] [place] [address] Simona Yanez MD [address] [place] [address] Routine OB OB/Gynecology Comment on above: Routine OB Start: 04-01-2024 End: 04-01-2024 Patient encounter procedure 04/01/2024 2:30 PM EDT Routine Office Visit OB/Gynecology [address] [place] [address] Belgica Thomas APRN.CN [address] [place] [address] OB Routine OB/Gynecology Comment on above: OB Routine Start: 04-01-2024 End: 07-01-2024 CBC panel - Blood by Automated count COMPLETE BLOOD COUNT Lab Routine Supervision of other high risk pregnancies, second trimester Expected: 04/01/2024, Expires: 07/01/2024 [facility] Comment on above: Expected: 04/01/2024 , Expires: 07/01/2024 Start: 04-01-2024 End: 07-01-2024 GESTATIONAL GLUCOSE SCREEN, 1-HOUR, 50 GRAM, NON-FASTING GESTATIONAL GLUCOSE SCREEN, 1-HOUR, 50 GRAM, NON-FASTING Lab Routine Supervision of other high risk pregnancies, second trimester Expected: 04/01/2024, Expires: 07/01/2024 [facility] Comment on above: Expected: 04/01/2024 , Expires: 07/01/2024 Start: 04-01-2024 End: 04-01-2025 OBSTETRIC ULTRASOUND WHI OBSTETRIC ULTRASOUND WHI Anc Imaging Routine Supervision of other high risk pregnancies, second trimester Expected: 04/01/2024, Expires: 04/01/2025 [facility] Work Phone: Comment on above: Expected: 04/01/2024 , Expires: 04/01/2025 Start: 04-01-2024 End: 07-01-2024 SYPHILIS TREPONEMAL W/REFLEX SYPHILIS TREPONEMAL W/REFLEX Lab Routine Supervision of other high risk pregnancies, second trimester Expected: 04/01/2024, Expires: 07/01/2024 [facility] Comment on above: Expected: 04/01/2024 , Expires: 07/01/2024 Start: 03-21-2024 End: 06-20-2024 lamoTRIgine [Mass/volume] in Serum or Plasma LAMOTRIGINE Lab Routine Seizure disorder (HCC) Expected: 03/21/2024 (Approximate), Expires: 06/20/2024 [facility] Work Phone: Comment on above: Expected: 03/21/2024 (Approximate), Expires: 06/20/2024 Start: 03-14-2024 End: 03-14-2024 Patient encounter procedure 03/14/2024 11:00 AM EDT Office Visit Epilepsy [address] [place] [address] Oz Terrazas MD [address] [id number] 6mth F/U Epilepsy Comment on above: 6mth F/U Start: 02-16-2024 End: 02-16-2024 Patient encounter procedure OB/Gynecology Comment on above: Anatomy New Est OB Start: 02-14-2024 Covid-19 Vaccine ( season) Covid-19 Vaccine () [facility] Start: 02-14-2024 Covid-19 Vaccine () Covid-19 Vaccine () [facility] Start: 02-14-2024 Influenza vaccination [facility] Start: 02-04-2024 End: 02-04-2024 Patient encounter procedure 02/04/2024 11:30 AM EDT Appointment Radiology [address] [place] [address] Diarrhea, unspecified type [R19.7] Radiology Comment on above: Diarrhea, unspecifie d type [R19.7] Start: 02-03-2024 End: 02-03-2024 ambulatory 02/03/2024 11:15 AM EDT OT/PT/Speech Visit [facility] Physical Therapy [address] [place] [address] Jamie Corey PT Back and hip pain [facility] Physical Therapy Comment on above: Back and hip pain Start: 01-25-2024 End: 01-25-2024 Patient encounter procedure 01/25/2024 3:40 PM EDT Office Visit Family Medicine [place] [address] [place] [address] Rosana Evans APRN.SURVEY TECHNOLOGIST [address] [place] [address] follow up of ultrasound Family Medicine [place] Comment on above: follow up of ultraso und Start: 01-20-2024 End: 01-20-2024 Patient encounter procedure 01/20/2024 10:45 AM EDT Appointment Radiology [address] [place] [address] Diarrhea, unspecified type [R19.7] Radiology Comment on above: Diarrhea, unspecifie d type [R19.7] Start: 01-12-2024 End: 04-12-2024 CBC panel - Blood by Automated count COMPLETE BLOOD COUNT Lab Routine 15 weeks gestation of Expected: 01/12/2024, Expires: 04/12/2024 [facility] Work Phone: Comment on above: Expected: 01/12/2024 , Expires: 04/12/2024 Start: 01-12-2024 End: 04-12-2024 Hemoglobin A1c in Blood HEMOGLOBIN A1C Lab Routine 15 weeks gestation of Expected: 01/12/2024, Expires: 04/12/2024 [facility] Comment on above: Expected: 01/12/2024 , Expires: 04/12/2024 Start: 01-12-2024 End: 04-12-2024 Hepatitis B virus surface Ag [Presence] in Serum HEPATITIS B SURFACE ANTIGEN Lab Routine 15 weeks gestation of Expected: 01/12/2024, Expires: 04/12/2024 [facility] Comment on above: Expected: 01/12/2024 , Expires: 04/12/2024 Start: 01-12-2024 End: 04-12-2024 Hepatitis C virus Ab [Presence] in Serum HEPATITIS C ANTIBODY IA WITH CONFIRMATION Lab Routine 15 weeks gestation of Expected: 01/12/2024, Expires: 04/12/2024 [facility] Comment on above: Expected: 01/12/2024 , Expires: 04/12/2024 Start: 01-12-2024 End: 04-12-2024 HIV 1+2 Ab [Presence] in Serum or Plasma by Immunoassay HIV 1/2 COMBO WITH REFLEX TO DIFFERENTIATION Lab Routine 15 weeks gestation of Expected: 01/12/2024, Expires: 04/12/2024 [facility] Comment on above: Expected: 01/12/2024 , Expires: 04/12/2024 Start: 01-12-2024 End: 01-11-2025 OBSTETRIC ULTRASOUND WHI OBSTETRIC ULTRASOUND WHI Anc Imaging Routine 15 weeks gestation of Expected: 01/12/2024, Expires: 01/11/2025 [facility] Comment on above: Expected: 01/12/2024 , Expires: 01/11/2025 Start: 01-12-2024 End: 04-12-2024 RUBELLA IGG ANTIBODY RUBELLA IGG ANTIBODY Lab Routine 15 weeks gestation of Expected: 01/12/2024, Expires: 04/12/2024 [facility] Comment on above: Expected: 01/12/2024 , Expires: 04/12/2024 Start: 01-12-2024 End: 04-12-2024 SYPHILIS TOTAL W/REFLEX SYPHILIS TOTAL W/REFLEX Lab Routine 15 weeks gestation of Expected: 01/12/2024, Expires: 04/12/2024 [facility] Comment on above: Expected: 01/12/2024 , Expires: 04/12/2024 Start: 01-12-2024 End: 04-12-2024 TYPE + SCREEN TYPE + SCREEN Blood Bank Routine 15 weeks gestation of Expected: 01/12/2024, Expires: 04/12/2024 [facility] Comment on above: Expected: 01/12/2024 , Expires: 04/12/2024 Start: 01-12-2024 End: 01-12-2024 Patient encounter procedure 01/12/2024 8:15 AM EDT Initial Office Visit OB/Gynecology [address] [place] [address] Catrina Mcduffie APRN.SURVEY TECHNOLOGIST [address] [place] [address] OB/Gynecology Start: 12-13-2023 Influenza vaccination Influenza Vacc ine (#1) [facility] Comment on above: Postponed from 02/13 (Declined at this time) Start: 11-03-2023 End: 11-03-2023 ambulatory 11/03/2023 4:30 PM EDT OT/PT/Speech Visit [facility] Physical Therapy [address] [place] [address] Reg Hollins, PT [address] [facility] [id number] Acute midline low back pain without sciatica [M54.50] [facility] Physical Therapy Comment on above: Acute midline low ba ck pain without sciatica [M54.50] Start: 11-03-2023 Subsequent hospital visit by physician 11/03/2023 12:00 PM EDT Hospital Encounter [place] [address] [facility] [address] [place] [address] Oz Terrazas MD [address] [facility] [address] [place] [address] Epilepsy, unspecified, not intractable, without status epilepticus [G40.909] [facility] [facility] Comment on above: Epilepsy, unspecifie d, not intractable, without status epilepticus [G40.909] Start: 08-04-2023 COVID-19 VACCINE (#1) COVID-19 VACCI NE (#1) [facility] Comment on above: Postponed from 06/28 (Declined at this time) Start: 08-04-2023 HPV VACCINE (3 - 2-d ose series) HPV VACCINE (3 - 2-dose series) [facility] Comment on above: Postponed from 06/16 (Declined at this time) Start: 08-04-2023 PAP TESTING PAP TESTING [facility] Comment on above: Postponed from 12/26 (Declined at this time) Start: 08-04-2023 PNEUMOCOCCAL (1 - PCV) PNEUMOCOCCAL (1 - PCV) [facility] Comment on above: Postponed from 12/26 (Declined at this time) Start: 02-13-2023 Influenza vaccination C [facility] Start: 02-03-2023 End: 04-05-2023 Lipid 1996 panel - Serum or Plasma LIPID PANEL BASIC Lab Routine Hyperlipidemia, mixed Expected: 02/03/2023, Expires: 04/05/2023 [facility] Work Phone: Comment on above: Expected: 02/03/2023 , Expires: 04/05/2023 Start: 01-13-2023 Urine microalbumin profile DTAP,TDAP,TD (7 - Td or Tdap) [facility] Comment on above: Postponed from 12/14 (Postponed - Not Clinically Indicated) Start: 12-12-2022 Influenza vaccination INFLUENZA (#1) [facility] Comment on above: Postponed from 02/13 (Declined at this time) Start: 08-04-2022 End: 10-04-2022 Comprehensive metabolic 2000 panel - Serum or Plasma [facility] Work Phone: Comment on above: Expected: 08/04/2022 , Expires: 10/04/2022 Start: 08-04-2022 End: 10-04-2022 Hepatitis C virus Ab [Presence] in Serum [facility] Work Phone: Comment on above: Expected: 08/04/2022 , Expires: 10/04/2022 Start: 08-04-2022 End: 10-04-2022 HIV 1+2 Ab [Presence] in Serum or Plasma by Immunoassay [facility] Work Phone: Comment on above: Expected: 08/04/2022 , Expires: 10/04/2022 Start: 08-04-2022 End: 10-04-2022 Lipid 1996 panel - Serum or Plasma [facility] Work Phone: Comment on above: Expected: 08/04/2022 , Expires: 10/04/2022 Start: 06-15-2022 DEPRESSION ASSESSMENT DEPRESSION ASS ESSMENT [facility] Start: 02-13-2022 Influenza vaccination INFLUENZA (#1) [facility] Start: 12-15-2019 Urine microalbumin profile DTAP,TDAP,TD (7 - Td or Tdap) [facility] Start: 2017 PAP TESTING PAP TESTING [facility] Start: 2017 Screening for malign ant neoplasm of cervix [facility] Start: 2014 Anxiety Screening Anxiety Screening [facility] Start: 2014 Depression Screening Depression Scre ening [facility] Start: 2014 HEPATITIS C SCREENING HEPATITIS C SC REENING [facility] Start: 2014 HIV SCREENING HIV SCREENING [facility] Start: 2010 PEDS TO ADULT TRANSITION ANNUAL ASSESSMENT PEDS TO ADULT TRANSITION ANNUAL ASSESSMENT [facility] Start: 06-16-2010 HPV VACCINE (3 - 2-d ose series) HPV VACCINE (3 - 2-dose series) [facility] Start: 2008 PEDS TO ADULT TRANSITION INITIAL DISCUSSION PEDS TO ADULT TRANSITION INITIAL DISCUSSION [facility] Start: 2006 MENINGOCOCCAL B: Consider based on risk (1 of 2 - Risk Bexsero 2-dose series) MENINGOCOCCAL B: Consider based on risk (1 of 2 - Risk Bexsero 2-dose series) [facility] Start: 2002 PNEUMOCOCCAL (1 - PCV) PNEUMOCOCCAL (1 - PCV) [facility] Start: 09-18-1997 HEPATITIS B (4 of 4 - 4-dose series) HEPATITIS B (4 of 4 - 4-dose series) [facility] Start: 06-28-1997 COVID-19 VACCINE (#1) COVID-19 VACCI NE (#1) [facility] Bacteria identified in Urine by Culture URINE CULTURE Microbiology Routine Dysuria 10/27/2023 1:53 PM EDT [facility] Bacteria identified in Urine by Culture URINE CULTURE Microbiology Routine 15 weeks gestation of 01/12/2024 9:15 AM EDT [facility] BACTERIAL VAGINOSIS NAAT BACTERIAL VAGINOSIS NAAT Lab Routine Vaginal irritation 01/12/2024 9:16 AM EDT [facility] DARIAN/TRICHOMONAS NAAT DARIAN/TRICHOMONAS NAAT Lab Routine Vaginal irritation 01/12/2024 9:16 AM EDT [facility] Chlamydia trachomatis+Neisseria gonorrhoeae DNA [Presence] in Unspecified specimen by MARY with probe detection GONORRHEA/CHLAMYDIA NAAT Lab Routine 15 weeks gestation of 01/12/2024 9:15 AM EDT [facility] EPIL VEEG ADMIT TO EMU/PMU EPIL VEEG ADMIT TO EMU/PMU NEUROLOGY Routine Seizure disorder (HCC) Ordered: 03/30/2023 [facility] Work Phone: Comment on above: Ordered: 03/30/2023 EPIL VEEG ADMIT TO EMU/PMU EPIL VEEG ADMIT TO EMU/PMU NEUROLOGY Routine Seizure disorder (HCC) Ordered: 10/29/2023 [facility] Work Phone: Comment on above: Ordered: 10/29/2023 End: 11-04-2024 lamoTRIgine [Mass/volume] in Serum or Plasma LAMOTRIGINE Lab Routine Epilepsy affecting in first trimester (HCC) Once per month for 10 Occurrences starting 11/05/2023 until 11/04/2024 [facility] Work Phone: Comment on above: Once per month for 1 0 Occurrences starting 11/05/2023 until 11/04/2024 NEXPLANON INSERTION NEXPLANON IN SERTION Procedures Routine Encounter for initial prescription of implantable subdermal contraceptive Ordered: 07/15/2024 [facility] Work Phone: Comment on above: Ordered: 07/15/2024 NEXPLANON INSERTION NEXPLANON IN SERTION Procedures Routine Nexplanon insertion Ordered: 08/15/2024 [facility] Work Phone: Comment on above: Ordered: 08/15/2024 NEXPLANON INSERTION NEXPLANON IN SERTION Procedures Routine Insertion of implantable subdermal contraceptive Ordered: 08/22/2024 [facility] Work Phone: Comment on above: Ordered: 08/22/2024 PAP TEST PAP TEST Lab Kerry nunez 15 weeks gestation of Screening for cervical cancer 01/12/2024 9:15 AM EDT [facility] Patient Education [facility] Work Phone: Patient referral [facility] Work Phone: End: 03-05-2024 Radex spine thoracic 3 views XR THORACIC GENERAL 3V AP/LAT/SWIMMERS Radiology Routine Acute midline low back pain without sciatica 1 Occurrences starting 02/04/2023 until 03/05/2024 [facility] Work Phone: Comment on above: 1 Occurrences starti ng 02/04/2023 until 03/05/2024 Radex spine thoracic 3 views XR THORACIC GENERAL 3V AP/LAT/SWIMMERS Radiology Routine Acute midline low back pain without sciatica 02/04/2023 2:23 PM EDT [facility] Work Phone: ROUTINE, GR OUP B STREP PCR ROUTINE, GROUP B STREP PCR Microbiology Routine Supervision of high risk in third trimester 36 weeks gestation of 06/17/2024 1:37 PM EST [facility] Work Phone: Urine test visual color cmprsn meths HCG QUAL UR B/O Lab Routine Irregular periods Ordered: 10/27/2023 [facility] Work Phone: Comment on above: Ordered: 10/27/2023 End: 07-31-2025 US Abdomen US ABDOMEN COMPLETE Radiology Routine SOB (shortness of breath) on exertion Abnormal uterine bleeding, 1 Occurrences starting 07/01/2024 until 07/31/2025 [facility] Comment on above: 1 Occurrences starti ng 07/01/2024 until 07/31/2025 End: 02-10-2025 US Abdomen RUQ US ABD RIGHT UPPER QUADRANT Radiology Routine Diarrhea, unspecified type 1 Occurrences starting 01/12/2024 until 02/10/2025 [facility] Comment on above: 1 Occurrences starti ng 01/12/2024 until 02/10/2025 US Abdomen RUQ US ABD RIGHT UPP ER QUADRANT Radiology Routine Diarrhea, unspecified type 02/04/2024 11:48 AM EDT [facility] Work Phone: End: 07-31-2025 US Pelvis US FEMALE PELVIS TRANSABD COMPLETE Radiology Routine Abnormal uterine bleeding, 1 Occurrences starting 07/01/2024 until 07/31/2025 [facility] Work Phone: Comment on above: 1 Occurrences starti ng 07/01/2024 until 07/31/2025 US Pelvis US FEMALE PELVIS TRANSABD COMPLETE Radiology Routine Abnormal uterine bleeding, 07/04/2024 9:50 AM EST [facility] Work Phone: End: 07-31-2025 US Pelvis limited US FEMALE PELVIS TRANSABD LTD Radiology Routine SOB (shortness of breath) on exertion RUQ abdominal pain History of gestational diabetes Abnormal uterine bleeding, 1 Occurrences starting 07/01/2024 until 07/31/2025 [facility] Comment on above: 1 Occurrences starti ng 07/01/2024 until 07/31/2025 End: 03-05-2024 XR HIP GENERAL 3V PELV/AP/LAT LEFT XR HIP GENERAL 3V PELV/AP/LAT LEFT Radiology Routine Pain of left hip 1 Occurrences starting 02/04/2023 until 03/05/2024 [facility] Work Phone: Comment on above: 1 Occurrences starti ng 02/04/2023 until 03/05/2024 XR HIP GENERAL 3V PELV/AP/LAT LEFT XR HIP GENERAL 3V PELV/AP/LAT LEFT Radiology Routine Pain of left hip 02/04/2023 2:23 PM EDT [facility] Work Phone: End: 10-13-2024 XR Knee - right 4 Views XR KNEE GENERAL 4V AP BOTH/PA BOTH/LAT/MERC RIGHT Radiology Routine Acute midline low back pain without sciatica Acute pain of right knee Pain of right hip 1 Occurrences starting 09/14/2023 until 10/13/2024 [facility] Work Phone: Comment on above: 1 Occurrences starti ng 09/14/2023 until 10/13/2024 End: 10-13-2024 XR Pelvis and Hip - right AP and Lateral frog XR HIP GENERAL 3V PELV/AP/LAT RIGHT Radiology Routine Acute midline low back pain without sciatica Acute pain of right knee Pain of right hip 1 Occurrences starting 09/14/2023 until 10/13/2024 [facility] Work Phone: Comment on above: 1 Occurrences starti ng 09/14/2023 until 10/13/2024 [facility] Immunizations Immunization Date Immunization Notes Care Provider Ste[facility]i [facility] 05-20-2024 respiratory syncytia l virus (RSV) vaccine, bivalent (ABRYSVO) Simona Yanez MD Work Phone: [facility] 04-26-2024 influenza, seasonal, injectable Simona Yanez MD Work Phone: [facility] 04-26-2024 tetanus toxoid, redu evi diphtheria toxoid, and acellular pertussis vaccine, adsorbed Simona Yanez MD Work Phone: [facility] 11-13-2022 tetanus toxoid, redu evi diphtheria toxoid, and acellular pertussis vaccine, adsorbed Rosana Evans OBGYN NURSE.SURVEY TECHNOLOGIST Work Phone: [facility] Work Phone: 04-16-2019 influenza, injectabl e, quadrivalent, preservative free HUI VASSAS DO [facility] 04-16-2019 tetanus toxoid, redu evi diphtheria toxoid, and acellular pertussis vaccine, adsorbed HUI VASSAS DO [facility] 04-16-2019 influenza virus vacc ine, unspecified formulation Neurology Provider [facility] 10-07-2015 influenza, injectabl e, quadrivalent, preservative free HUI VASSAS DO [facility] Comment on above: Early/Late Reason: N ursing Judgment 10-07-2015 tetanus toxoid, redu evi diphtheria toxoid, and acellular pertussis vaccine, adsorbed HUI VASSAS DO [facility] 02-15-2010 human papilloma viru s vaccine, quadrivalent Carlos Bird DO Work Phone: [facility] Work Phone: 12-14-2009 human papilloma viru s vaccine, quadrivalent Carlos Bird DO Work Phone: [facility] Work Phone: 12-14-2009 meningococcal polysaccharide (groups A, C, Y and W-135) diphtheria toxoid conjugate vaccine (MCV4P) Carlos Bird DO Work Phone: [facility] Work Phone: 12-14-2009 tetanus toxoid, redu evi diphtheria toxoid, and acellular pertussis vaccine, adsorbed Carlos Bird DO Work Phone: [facility] Work Phone: 11-30-2001 diphtheria, tetanus toxoids and acellular pertussis vaccine, unspecified formulation Oz Terrazas MD Work Phone: [facility] 11-30-2001 measles, mumps and rubella virus vaccine Oz Terrazas MD Work Phone: [facility] 11-30-2001 poliovirus vaccine, inactivated Oz Terrazas MD Work Phone: [facility] 11-23-2001 diphtheria, tetanus toxoids and acellular pertussis vaccine Carlos Bird DO Work Phone: [facility] Work Phone: 11-23-2001 diphtheria, tetanus toxoids and acellular pertussis vaccine, unspecified formulation Oz Terrazas MD Work Phone: [facility] 11-23-2001 measles, mumps and rubella virus vaccine Carlos Bird DO Work Phone: [facility] Work Phone: 11-23-2001 poliovirus vaccine, inactivated Carlos Bird DO Work Phone: [facility] Work Phone: 10-11-1998 diphtheria, tetanus toxoids and acellular pertussis vaccine Carlos Bird DO Work Phone: [facility] Work Phone: 10-11-1998 diphtheria, tetanus toxoids and acellular pertussis vaccine, unspecified formulation Oz Terrazas MD Work Phone: [facility] 10-11-1998 haemophilus influenz ae type b vaccine, PRP-T conjugate Carlos Bird DO Work Phone: [facility] Work Phone: 10-11-1998 measles, mumps and rubella virus vaccine Carlos Bird DO Work Phone: [facility] Work Phone: 10-11-1998 varicella virus vaccine Jord an Bird DO Work Phone: [facility] Work Phone: 12-18-1997 diphtheria, tetanus toxoids and acellular pertussis vaccine Carlos Bird DO Work Phone: [facility] Work Phone: 12-18-1997 diphtheria, tetanus toxoids and acellular pertussis vaccine, unspecified formulation Oz Terrazas MD Work Phone: [facility] 12-18-1997 haemophilus influenz ae type b vaccine, PRP-T conjugate Carlos Bird DO Work Phone: [facility] Work Phone: 12-18-1997 poliovirus vaccine, inactivated Carlos Bird DO Work Phone: [facility] Work Phone: 09-11-1997 diphtheria, tetanus toxoids and acellular pertussis vaccine Carlos Bird DO Work Phone: [facility] Work Phone: 09-11-1997 diphtheria, tetanus toxoids and acellular pertussis vaccine, unspecified formulation Oz Terrazas MD Work Phone: [facility] 09-11-1997 haemophilus influenz ae type b vaccine, PRP-T conjugate Carlos Bird DO Work Phone: [facility] Work Phone: 09-11-1997 hepatitis B vaccine, pediatric or pediatric/adolescent dosage Carlos Bird DO Work Phone: [facility] Work Phone: 09-11-1997 poliovirus vaccine, inactivated Carlos Bird DO Work Phone: [facility] Work Phone: 09-11-1997 hepatitis B vaccine, unspecified formulation Carlos Bird DO Work Phone: [facility] 07-24-1997 diphtheria, tetanus toxoids and acellular pertussis vaccine Carlos Bird DO Work Phone: [facility] Work Phone: 07-24-1997 diphtheria, tetanus toxoids and acellular pertussis vaccine, unspecified formulation Oz Terrazas MD Work Phone: [facility] 07-24-1997 haemophilus influenz ae type b vaccine, PRP-T conjugate Carlos Bird DO Work Phone: [facility] Work Phone: 07-24-1997 hepatitis B vaccine, pediatric or pediatric/adolescent dosage Carlos Bird DO Work Phone: [facility] Work Phone: 07-24-1997 poliovirus vaccine, inactivated Carlos Bird DO Work Phone: [facility] Work Phone: 1996 hepatitis B vaccine, pediatric or pediatric/adolescent dosage Carlos Bird DO Work Phone: [facility] Work Phone: Payers Date Payer Category Payer Self-pay [id number] 2022 Unknown [id number] 2022 Unknown [id number] 2022 Medicaid [id number] 1996 Unknown [id number] 2.16. [id number] 1996 Unknown [id number] 2.16. [id number] 1996 Unknown [id number] 2.16. [id number] 1996 Unknown [id number] 2.16. [id number] 1996 Unknown [id number] 2.16. [id number] 1996 Unknown [id number] 2.16. [id number] 1996 Unknown [id number] 2.16.8 [id number] 1996 Unknown [id number] 2.16.8 [id number] 1996 Unknown [id number] 2.16.8 [id number] 1996 Unknown [id number] 2.16.8 [id number] 1996 Unknown [id number] 2.16.8 [id number] 1996 Unknown [id number] 2.16.8 [id number] 1996 Unknown [id number] 2.16.8 [id number] 1996 Unknown [id number] 2.16.8 [id number] [facility] [id number] Unknown [id number] 2.16.8 [id number] Unknown [id number] 2.16.8 [id number] Unknown [id number] 2.16.8 [id number] Social History Date Type Detail Facility Tobacco Nicotine Use: Va ping Product in Last 90 Days. Type: Electronic Cigarettes (Vaping). [facility] Tobacco smoking status Never smo ked tobacco (finding) [facility] Start: 1995 Sex Assigned At Female A [facility] Start: 02-12-2022 End: 04-27-2022 Tobacco smoking status WYIS Unknown if ever smoked [facility] Work Phone: Start: 03-22-2021 End: 08-04-2022 Tobacco smoking status WYIS Smokes tobacco daily [facility] Start: 03-22-2021 End: 02-01-2024 Tobacco use and exposure Smokeless tobacco non-user [facility] Start: 03-22-2021 End: 02-04-2023 Alcohol intake Not Asked [facility] Start: 1995 Sex Assigned At Not on file C [facility] Start: 09-18-2022 History SDOH Alcohol Frequency 1 [facility] Start: 09-18-2022 History SDOH Alcohol Std Drinks 0 [facility] Start: 09-18-2022 History SDOH Social Connections Phone 5 [facility] Start: 09-18-2022 History SDOH Social Connections Get Together 2 [facility] Start: 09-18-2022 History SDOH Social Connections Mandaeism 98 [facility] Start: 09-18-2022 History SDOH Social Connections Living 3 [facility] Start: 09-18-2022 History SDOH Financial 4 [facility] Start: 12-19-2022 End: 02-01-2024 Tobacco smoking status NHIS Ex-smoker [facility] Start: 06-15-2012 End: 06-15-2020 History of tobacco use Current smoker [facility] Start: 06-15-2012 End: 06-15-2020 History of tobacco use Cigarette Smoker [facility] Start: 12-19-2022 Tobacco use and exposure User of smokeless tobacco [facility] Start: 09-18-2022 End: 09-14-2023 History of Social function [facility] Start: 09-18-2022 End: 09-14-2023 Social connection and isolation panel [facility] How often do you att end synagogue or zoroastrian services? Patient refused [facility] Do you belong to any clubs or organizations such as synagogue groups, unions, fraternal or athletic groups, or school groups? No [facility] Are you now , , , , never or living with a partner? [facility] How often to you hav e a drink containing alcohol? Never [facility] How hard is it for y ou to pay for the very basics like food, housing, medical care, and heating Not very hard [facility] Do you feel stress - tense, restless, nervous, or anxious, or unable to sleep at night because your mind is troubled all the time - these days [OSQ] Very much [facility] (I/We) worried kei er (my/our) food would run out before (I/we) got money to buy more. Sometimes true [facility] Start: 12-19-2022 Tobacco Comment abebae [facility] Start: 09-16-2022 Gender identity Identifies as female gender (finding) [facility] Start: 03-30-2023 End: 08-22-2024 Alcohol intake Ex-drinker (finding) [facility] Has the [employer], or water [employer] threatened to shut off services in your home in past 12Mo Yes [facility] How often to you hav e a drink containing alcohol? Monthly or less [facility] How hard is it for y ou to pay for the very basics like food, housing, medical care, and heating Somewhat hard [facility] Do you feel stress - tense, restless, nervous, or anxious, or unable to sleep at night because your mind is troubled all the time - these days [OSQ] Rather much [facility] Start: 01-11-2024 Education 13 [facility] Start: 10-08-2023 [facility] Goals Date Patient Goal Desired Activity /State Personal health goal Functional Status Date Assessment Result Facility 11-05-2023 Are you deaf, or do you have serious difficulty hearing No 11/05/2023 2:32 PM EDT Dena Lopez, TRAY No [facility] 11-05-2023 Are you blind, or do you have serious difficulty seeing, even when wearing glasses No 11/05/2023 2:32 PM EDDena Borrero, TRAY No [facility] 11-05-2023 Do you have serious difficulty walking or climbing stairs No 11/05/2023 2:32 PM EDT Dena Lopez, TRAY No [facility] 11-05-2023 Do you have difficul ty dressing or bathing No 11/05/2023 2:32 PM EDT Dena Lopez, TRAY No [facility] 11-05-2023 Because of a physica l, mental, or emotional condition, do you have difficulty doing errands alone such as visiting a physician's office or shopping No 11/05/2023 2:32 PM EDT Dena Lopez, TRAY No [facility] 10-14-2021 Functional Status [facility] [employer] 10-14-2021 Functional Status Hayder [facility] 10-14-2021 Functional Status [facility] Mental Status Date Assessment Result Facility 11-05-2023 Because of a physica l, mental, or emotional condition, do you have serious difficulty concentrating, remembering, or making decisions No 11/05/2023 2:32 PM EDT Dena Lopez RN No [facility] 11-18-2022 Mental Status Orientation Oriented x 4 [facility] 10-14-2021 Mental Status [facility] Clinical Notes 11-11-2013 to 08-22-2024 Patient InstructionsSirisha Gomes MD - 08/22/2024 2:40 PM Joseph Simms MD - 08/15/2024 3:27 PM Julianna Torres MD - 07/15/2024 3:59 PM Jaci Hayden MD - 07/07/2024 1:22 PM EST Note Date & Type Note Facility 08-22-2024 Instructions Sammi Orozco MA - 08/22/2024 2:41 PM EDT NEXPLANON PATIENT EDUCATION You may remove dressing in 24 hours. Expect some bruising around insertion site. You may take over the counter pain medication (i.e. Tylenol, motrin, advil, etc) if you have discomfort. Call your provider with excessive bruising or pain. Continue to use condoms for STD prevention. You should use backup contraception for 7 days to prevent . documented in this encounter [facility] 08-22-2024 Note HNO ID: [id number] Author: SIRISHA GOMES MD Service: ? Author Type: Physician Type: Progress Notes Filed: 08/22/2024 17:04 Note Text: Bertin is a 28 year old patient who presents for Nexplanon insertion. Patient's last menstrual period was 09/24/2023 (exact date). VITALS: LMP 09/24/2023 test: negative Nexplanon lot #: [id number] Exp date: 07/2026 UNIVERSAL PROTOCOL / SAFETY CHECKLIST Procedure to be Performed: nexplanon insertion Sign In: A Moment of CARE was completed. Appropriate PPE (Personal Protective Equipment) worn by all providers involved with the procedure. Special equipment not required. Patient/Surrogate Stated/Verified: Patient name, Date of , Relevant allergies, and The intended procedure Time Out: Relevant labs, photos, and/or imaging studies have been reviewed. Intended patient and procedure match the source document(s) (e.g. consent, HANDP, associated studies [imaging, pathology]) match the intended patient and procedure. Consent obtained and matches the intended procedure. Yes. Correct side/site has been marked and visible. Medications required for this procedure are verified. Fire risk assessed and is not applicable. Implants: Correct implant(s) confirmed including size and side. Expiration date(s) reviewed. Sign Out: Specimens not collected. All instruments, equipment, possible retained foreign bodies are accounted for. Yes. The post-procedure plan of care has been communicated to the patient or surrogate. TECHNIQUE: Patient placed in supine position with left) bent at the elbow and placed over the head. Skin cleansed with betadine. 2mL of 1% lidocaine injected subQ along insertion site. Nexplanon ortega inserted under sterile technique. After insertion by the provider, the ortega was palpable under the skin by both patient and provider. Steristrips and sterile pressure dressing applied. AANDP: Nexplanon inserted without complications. The patient was instructed to remove the dressing after 24 hours. Advised to use backup contraception for 7 days. Sirisha Gomes MD [facility] 08-22-2024 History of Presen t illness Narrative Bertin is a 28 year old patient who presents for Nexplanon insertion. Patient's last menstrual period was 09/24/2023 (exact date). VITALS: LMP 09/24/2023 test: negative Nexplanon lot #: [id number] Exp date: 07/2026 UNIVERSAL PROTOCOL / SAFETY CHECKLIST Procedure to be Performed: nexplanon insertion Sign In: A Moment of CARE was completed. Appropriate PPE (Personal Protective Equipment) worn by all providers involved with the procedure. Special equipment not required. Patient/Surrogate Stated/Verified: Patient name, Date of , Relevant allergies, and The intended procedure Time Out: Relevant labs, photos, and/or imaging studies have been reviewed. Intended patient and procedure match the source document(s) (e.g. consent, H&P, associated studies [imaging, pathology]) match the intended patient and procedure. Consent obtained and matches the intended procedure. Yes. Correct side/site has been marked and visible. Medications required for this procedure are verified. Fire risk assessed and is not applicable. Implants: Correct implant(s) confirmed including size and side. Expiration date(s) reviewed. Sign Out: Specimens not collected. All instruments, equipment, possible retained foreign bodies are accounted for. Yes. The post-procedure plan of care has been communicated to the patient or surrogate. TECHNIQUE: Patient placed in supine position with left) bent at the elbow and placed over the head. Skin cleansed with betadine. 2mL of 1% lidocaine injected subQ along insertion site. Nexplanon ortega inserted under sterile technique. After insertion by the provider, the ortega was palpable under the skin by both patient and provider. Steristrips and sterile pressure dressing applied. A&P: Nexplanon inserted without complications. The patient was instructed to remove the dressing after 24 hours. Advised to use backup contraception for 7 days. Sirisha Gomes MD documented in this encounter [facility] 08-15-2024 Note HNO ID: [id number] Author: JOSEPH MEDRANO MD Service: ? Author Type: Physician Type: Progress Notes Filed: 08/15/2024 15:48 Note Text: VISIT Bertin Mcduffie is a 28 year old year old here for visit. Delivery Summary: ROS/ Recovery: Feeding: Breast feeding problems: possible tongue tie Menses since delivery: n/a Menstrual pattern prior to : Irregular periods [place] since delivery: Not resumed Depression: admits to symptoms of depression. OB Depression and Anxiety Screening- This Encounter (since 08/14/2024) Over the past 2 weeks have you felt down, depressed, or hopeless? Negative Over the past two weeks, have you felt little interest or pleasure in doing things?? Positive - Further Testing Indicated I have been able to laugh and see the funny side of things. Definitely not so much now I have looked forward with enjoyment to things. Definitely less than I used to I have blamed myself unnecessarily when things went wrong. Yes, some of the time I have been anxious or worried for no good reason. Yes, very often I have felt scared or panicky for no good reason. Yes, sometimes Things have been getting on top of me. Yes, most of the time I haven't been able to cope at all I have been so unhappy that I have had difficulty sleeping. Not very often I have felt sad or miserable. Not very often I have been so unhappy that I have been crying. Only occasionally The thought of harming myself has occurred to me. Never [place] Depression Scale Total 17 Feeling nervous, anxious or on edge 3-Nearly every day Not being able to stop or control worrying 3-Nearly every day Anxiety Pre-Screening Total (If >/= 3 additional questions will be reviewed) 6 Worrying too much about different things 2-More than half the days Trouble relaxing 1-Several days Being so restless that it is hard to sit still 1-Several days Becoming easily annoyed or irritable 3-Nearly every day Feeling afraid, as if something awful might happen 2-More than half the days Anxiety (SARMAD) Full Screening Total 15 Emotional support: Yes Bowel symptoms: No nausea, vomiting, or diarrhea, No heartburn or reflux symptoms, and Negative for abdominal discomfort, blood in stools or black stools Abdomen: N/A Bladder symptoms: No dysuria, gross hematuria, urinary frequency, urinary urgency, or incontinence Other issues: None Last Pap: 2023 normal HPV: N/A PAST MEDICAL HISTORY Diagnosis Date Anemia Borderline personality disorder (HCC) Depression with anxiety Diabetes, gestational Factor V Leiden (HCC) Diagnosed 2015 History of gestational diabetes in prior , currently 01/12/2024 depression Seizure (HCC) Seizures (HCC) 06/15/2012 Seizures (HCC) 09/08/2023 Last seizure 2022, admisss[facility] to [facility] 09/07 aand 11/02 Dr Oz Terrazas PAST SURGICAL HISTORY Procedure Laterality Date DANDC, DIAG AND/OR THERAPEUTIC 2016 and 2021 FAMILY HISTORY Problem Relation Age of Onset Thyroid Mother Diabetes Mother Hypertension Mother Migraines Mother other (ibs) Mother Arthritis Mother Depression Mother Anxiety disorder Mother Factor 5 Leiden Father Heart Father Hypertension Father Thyroid Father Migraines Father Depression Father Anxiety disorder Father Depression Brother Post-Traumatic Stress Disorder Brother Anxiety disorder Brother Hypertension Maternal Grandmother Glaucoma Maternal Grandmother Arthritis Maternal Grandmother Osteoporosis Maternal Grandmother other (degenerative disc) Maternal Grandmother No Known Problems Maternal Grandfather other (degenerative disc) Paternal Grandmother No Known Problems Paternal Grandfather Seizures No Family History Social History Tobacco Use Smoking status: Former Current packs/day: 0.00 Types: Cigarettes Start date: 2012 Quit date: 2020 Years since quittin.1 Smokeless tobacco: Never Tobacco comments: vape Vaping Use Vaping status: Former Substances: Nicotine Devices: Pre-filled pod Substance Use Topics Alcohol use: Not Currently Drug use: Not Currently Types: Marijuana Comment: Last used mid December Reviewed above and agree. Feels a lot of anxiety, trouble w/ sleep b/c of it. Has been on meds in the past. Buspar and antidepressants. Has been on zoloft during . Prescribed zoloft by PCP office. Joseph Medrano MD PHYSICAL EXAMINATION: SENSITIVE EXAM: The sensitive examination was discussed with the Patient or Patient's Authorized Field Marketing Team Leader. As applicable, any other physician, advance practice provider, medical student, or other health professional student that will be observing or involved in the sensitive examination for educational or training purposes was discussed with the Patient or Authorized Field Marketing Team Leader. The Patient or Authorized Field Marketing Team Leader (more content not included)... [facility] 08-15-2024 History of Presen t illness Narrative VISIT Bertin Mcduffie is a 28 year old year old here for visit. Delivery Summary: ROS/ Recovery: Feeding: Breast feeding problems: possible tongue tie Menses since delivery: n/a Menstrual pattern prior to : Irregular periods [place] since delivery: Not resumed Depression: admits to symptoms of depression. OB Depression and Anxiety Screening- This Encounter (since 08/14/2024) Over the past 2 weeks have you felt down, depressed, or hopeless? Negative Over the past two weeks, have you felt little interest or pleasure in doing things? Positive - Further Testing Indicated I have been able to laugh and see the funny side of things. Definitely not so much now I have looked forward with enjoyment to things. Definitely less than I used to I have blamed myself unnecessarily when things went wrong. Yes, some of the time I have been anxious or worried for no good reason. Yes, very often I have felt scared or panicky for no good reason. Yes, sometimes Things have been getting on top of me. Yes, most of the time I haven't been able to cope at all I have been so unhappy that I have had difficulty sleeping. Not very often I have felt sad or miserable. Not very often I have been so unhappy that I have been crying. Only occasionally The thought of harming myself has occurred to me. Never [place] Depression Scale Total 17 Feeling nervous, anxious or on edge 3-Nearly every day Not being able to stop or control worrying 3-Nearly every day Anxiety Pre-Screening Total (If >/= 3 additional questions will be reviewed) 6 Worrying too much about different things 2-More than half the days Trouble relaxing 1-Several days Being so restless that it is hard to sit still 1-Several days Becoming easily annoyed or irritable 3-Nearly every day Feeling afraid, as if something awful might happen 2-More than half the days Anxiety (SARMAD) Full Screening Total 15 Emotional support: Yes Bowel symptoms: No nausea, vomiting, or diarrhea, No heartburn or reflux symptoms, and Negative for abdominal discomfort, blood in stools or black stools Abdomen: N/A Bladder symptoms: No dysuria, gross hematuria, urinary frequency, urinary urgency, or incontinence Other issues: None Last Pap: 2023 normal HPV: N/A PAST MEDICAL HISTORY Diagnosis Date Anemia Borderline personality disorder (HCC) Depression with anxiety Diabetes, gestational Factor V Leiden (HCC) Diagnosed 2015 History of gestational diabetes in prior , currently 01/12/2024 depression Seizure (HCC) Seizures (HCC) 06/15/2012 Seizures (HCC) 09/08/2023 Last seizure 2022, admisssions to [facility] 09/07 aand 11/02 Dr Oz Terrazas PAST SURGICAL HISTORY Procedure Laterality Date D&C, DIAG AND/OR THERAPEUTIC 2016 and 2021 FAMILY HISTORY Problem Relation Age of Onset Thyroid Mother Diabetes Mother Hypertension Mother Migraines Mother other (ibs) Mother Arthritis Mother Depression Mother Anxiety disorder Mother Factor 5 Leiden Father Heart Father Hypertension Father Thyroid Father Migraines Father Depression Father Anxiety disorder Father Depression Brother Post-Traumatic Stress Disorder Brother Anxiety disorder Brother Hypertension Maternal Grandmother Glaucoma Maternal Grandmother Arthritis Maternal Grandmother Osteoporosis Maternal Grandmother other (degenerative disc) Maternal Grandmother No Known Problems Maternal Grandfather other (degenerative disc) Paternal Grandmother No Known Problems Paternal Grandfather Seizures No Family History Social History Tobacco Use Smoking status: Former Current packs/day: 0.00 Types: Cigarettes Start date: 2012 Quit date: 2020 Years since quittin.1 Smokeless tobacco: Never Tobacco comments: vape Vaping Use Vaping status: Former Substances: Nicotine Devices: Pre-filled pod Substance Use Topics Alcohol use: Not Currently Drug use: Not Currently Types: Marijuana Comment: Last used mid December Reviewed above and agree. Feels a lot of anxiety, trouble w/ sleep b/c of it. Has been on meds in the past. Buspar and antidepressants. Has been on zoloft during . Prescribed zoloft by PCP office. Joseph Medrano MD PHYSICAL EXAMINATION: SENSITIVE EXAM: The sensitive examination was discussed with the Patient or Patient's Authorized Field Marketing Team Leader. As applicable, any other physician, advance practice provider, medical student, or other health professional student that will be observing or involved in the sensitive examination for educational or training purposes was discussed with the Patient or Authorized Field Marketing Team Leader. The Patient or Authorized Field Marketing Team Leader has agreed to proceed with the sensitive examination. (Sensitive examination includes inspection and/or palpation of the breasts, pelvis, prostate and anorectal regions). Ht 5' 4.5 (1.64m) Wt 159 lb (72.1kg) LMP 09/24/2023 BMI 26.88 kg/(m^2). GENERAL: pleasant, female in no apparent distress HEENT: Normocephalic, atraumatic, mucus membranes moist, and no lesions NECK: Supple, full range of motion, no adenopathy, and thyroid normal DERMATOLOGY: Normal, without lesions, non-icteric, and non-hirsute BREAST: soft, non-tender, symmetric, no dominant mass, normal nipple-areolar complex, no lymphadenopathy, and no nipple discharge CHEST: Normal inspiratory effort ABDOMEN: soft, non-tender, and no masses. INCISION: N/A PELVIC: external genitalia normal, normal Bartholin's glands, urethra, [place]'s glands, no vulvar lesions, no cervical lesions, good vaginal support, physiologic discharge present, normal appearing perineal body and perianal region BIMANUAL: uterus normal size, shape and consistency, no adnexal masses, and non-tender NEURO: alert and oriented x3,exam grossly non-focal EXTREMITIES: normal ASSESSMENT AND PLAN: 28 year old status post with normal course. and course complicated by worsening anxiety. Sees counselor weekly, encouraged to cont. w/ this. Denies thoughts of hurting self/others. Reports has support at home. Feels she can benefit from increasing dose of zoloft. Recommend this and f/u w/ PCP for care home management. Contraception plan: nexplanon Follow up: RTC for annual exams and PRN Joseph Medrano MD documented in this encounter [facility] 07-15-2024 Note HNO ID: [id number] Author: JULIANNA VELAZQUEZ MD Service: ? Author Type: Physician Type: Progress Notes Filed: 07/15/2024 17:12 Note Text: CONTRACEPTION Bertin Mcduffie is a 28 year old who presents today for contraception. Patient's last menstrual period was 09/24/2023 (exact date).. HPI: Dysmenorrhea No Heavy menses No Irregular menses Yes SUBJECTIVE Sexually active: Yes- not currently, Smoking No Last PAP 01/25/2024 Method of control: none- Methods tried previously: nexplanon which she was satisfied with Patient currently interested in: Nexplanon Interested in in the next 3 years? No Date of last test: Not applicable Date of last STD testing? 2023 Relevant Past Medical History: History of Factor V Leiden OB History T4 L4 SAB4 IAB0 Ectopic0 Multiple0 Live Births4 PAST MEDICAL HISTORY Diagnosis Date Anemia Borderline personality disorder (HCC) Depression with anxiety Diabetes, gestational Factor V Leiden (HCC) Diagnosed 2015 History of gestational diabetes in prior , currently 01/12/2024 depression Seizure (HCC) Seizures (HCC) 06/15/2012 Seizures (HCC) 09/08/2023 Last seizure 2022, admisssions to [facility] 09/07 aand 11/02 Dr Oz Terrazas PAST SURGICAL HISTORY Procedure Laterality Date DANDC, DIAG AND/OR THERAPEUTIC 2016 and 2021 FAMILY HISTORY Problem Relation Age of Onset Thyroid Mother Diabetes Mother Hypertension Mother Migraines Mother other (ibs) Mother Arthritis Mother Depression Mother Anxiety disorder Mother Factor 5 Leiden Father Heart Father Hypertension Father Thyroid Father Migraines Father Depression Father Anxiety disorder Father Depression Brother Post-Traumatic Stress Disorder Brother Anxiety disorder Brother Hypertension Maternal Grandmother Glaucoma Maternal Grandmother Arthritis Maternal Grandmother Osteoporosis Maternal Grandmother other (degenerative disc) Maternal Grandmother No Known Problems Maternal Grandfather other (degenerative disc) Paternal Grandmother No Known Problems Paternal Grandfather Seizures No Family History SOCIAL HISTORY Social History Tobacco Use Smoking status: Former Current packs/day: 0.00 Types: Cigarettes Start date: 2012 Quit date: 2020 Years since quittin.0 Smokeless tobacco: Never Tobacco comments: vape Vaping Use Vaping status: current everyday user Substances: Nicotine Devices: Pre-filled pod Substance Use Topics Alcohol use: Not Currently Drug use: Not Currently Types: Marijuana Comment: Last used mid December PAST SURGICAL HISTORY Procedure Laterality Date DANDC, DIAG AND/OR THERAPEUTIC 2016 and 2021 Current Outpatient Medications Medication Sig enoxaparin sodium (LOVENOX SUBCUTANEOUS) Inject subcutaneously. lamoTRIgine ER (LAMICTAL XR) 100 mg 24 hr tablet Take 1 tablet by mouth daily at bedtime. Take with the 300 mg tabelt. Total dose = 400 mg/day. lamoTRIgine ER (LAMICTAL XR) 300 mg 24 hr tablet Take 1 tablet by mouth daily at bedtime. sertraline (ZOLOFT) 100 mg tablet Take 1 tablet by mouth once daily. Lmgwshdr-Zp-Yrn-Fe-FA tab Take 1 tablet by mouth once daily. folic acid 1 mg tablet Take 4 tablets by mouth once daily. VIT 10-IRON FUM-FOLIC ORAL Take by mouth. Blood Pressure Test Kit-Large (QUICK RESPONSE BP MONITOR) 1 Each once daily. Blood Pressure Test Kit-Large (QUICK RESPONSE BP MONITOR) 1 Each once daily. Magnesium Oxide 420 mg tab Take 1 tablet by mouth daily at bedtime. (Patient not taking: Reported on 07/07/2024) ondansetron (ZOFRAN) 4 mg tablet Take by mouth every 8 hours as needed for nausea/vomiting. (Patient not taking: Reported on 07/15/2024) aspirin, enteric coated (ECOTRIN LOW STRENGTH) 81 mg EC tablet Take 1 tablet by mouth once daily. (Patient not taking: Reported on 07/07/2024) No current facility-administered medications for this visit. Allergies As of Date: 07/15/2024 (No Known Allergies) Fully Assessed 07/15/2024 SENSITIVE EXAM: Sensitive exam not performed. OBJECTIVE: General Appearance: Well appearing, alert, in no acute distress, well-hydrated, well nourished. ASSESSMENT/PLAN: control counseling All contraceptive options were discussed with the patient. R/B/A explained. All questions answered. Pt understands risks including but not limited to increased risk of breast cancer, blood clots and stroke. Patient desires Nexplanon as she did well with it before in the past. Order placed. Follow up for 6 week exam first. Will then schedule Nexplanon insertion. Julianna Velazquez, I spent 15 minutes in the visit, with more than 50% of the total wqzj-ec-ajqo time of the visit in counseling / coordination of care. [facility] 07-15-2024 History of Presen t illness Narrative CONTRACEPTION Bertin Mcduffie is a 28 year old who presents today for contraception. Patient's last menstrual period was 09/24/2023 (exact date).. HPI: Dysmenorrhea No Heavy menses No Irregular menses Yes SUBJECTIVE Sexually active: Yes- not currently, Smoking No Last PAP 01/25/2024 Method of control: none- Methods tried previously: nexplanon which she was satisfied with Patient currently interested in: Nexplanon Interested in in the next 3 years? No Date of last test: Not applicable Date of last STD testing? 2023 Relevant Past Medical History: History of Factor V Leiden OB History T4 L4 SAB4 IAB0 Ectopic0 Multiple0 Live Births4 PAST MEDICAL HISTORY Diagnosis Date Anemia Borderline personality disorder (HCC) Depression with anxiety Diabetes, gestational Factor V Leiden (HCC) Diagnosed 2015 History of gestational diabetes in prior , currently 01/12/2024 depression Seizure (HCC) Seizures (HCC) 06/15/2012 Seizures (HCC) 09/08/2023 Last seizure 2022, admisssions to [facility] 09/07 aand 11/02 Dr Oz Terrazas PAST SURGICAL HISTORY Procedure Laterality Date D&C, DIAG AND/OR THERAPEUTIC 2016 and 2021 FAMILY HISTORY Problem Relation Age of Onset Thyroid Mother Diabetes Mother Hypertension Mother Migraines Mother other (ibs) Mother Arthritis Mother Depression Mother Anxiety disorder Mother Factor 5 Leiden Father Heart Father Hypertension Father Thyroid Father Migraines Father Depression Father Anxiety disorder Father Depression Brother Post-Traumatic Stress Disorder Brother Anxiety disorder Brother Hypertension Maternal Grandmother Glaucoma Maternal Grandmother Arthritis Maternal Grandmother Osteoporosis Maternal Grandmother other (degenerative disc) Maternal Grandmother No Known Problems Maternal Grandfather other (degenerative disc) Paternal Grandmother No Known Problems Paternal Grandfather Seizures No Family History SOCIAL HISTORY Social History Tobacco Use Smoking status: Former Current packs/day: 0.00 Types: Cigarettes Start date: 2012 Quit date: 2020 Years since quittin.0 Smokeless tobacco: Never Tobacco comments: vape Vaping Use Vaping status: current everyday user Substances: Nicotine Devices: Pre-filled pod Substance Use Topics Alcohol use: Not Currently Drug use: Not Currently Types: Marijuana Comment: Last used mid December PAST SURGICAL HISTORY Procedure Laterality Date D&C, DIAG AND/OR THERAPEUTIC 2016 and 2021 Current Outpatient Medications Medication Sig enoxaparin sodium (LOVENOX SUBCUTANEOUS) Inject subcutaneously. lamoTRIgine ER (LAMICTAL XR) 100 mg 24 hr tablet Take 1 tablet by mouth daily at bedtime. Take with the 300 mg tabelt. Total dose = 400 mg/day. lamoTRIgine ER (LAMICTAL XR) 300 mg 24 hr tablet Take 1 tablet by mouth daily at bedtime. sertraline (ZOLOFT) 100 mg tablet Take 1 tablet by mouth once daily. Eopfjdrs-Us-Rab-Fe-FA tab Take 1 tablet by mouth once daily. folic acid 1 mg tablet Take 4 tablets by mouth once daily. VIT 10-IRON FUM-FOLIC ORAL Take by mouth. Blood Pressure Test Kit-Large (QUICK RESPONSE BP MONITOR) 1 Each once daily. Blood Pressure Test Kit-Large (QUICK RESPONSE BP MONITOR) 1 Each once daily. Magnesium Oxide 420 mg tab Take 1 tablet by mouth daily at bedtime. (Patient not taking: Reported on 07/07/2024) ondansetron (ZOFRAN) 4 mg tablet Take by mouth every 8 hours as needed for nausea/vomiting. (Patient not taking: Reported on 07/15/2024) aspirin, enteric coated (ECOTRIN LOW STRENGTH) 81 mg EC tablet Take 1 tablet by mouth once daily. (Patient not taking: Reported on 07/07/2024) No current facility-administered medications for this visit. Allergies As of Date: 07/15/2024 (No Known Allergies) Fully Assessed 07/15/2024 SENSITIVE EXAM: Sensitive exam not performed. OBJECTIVE: General Appearance: Well appearing, alert, in no acute distress, well-hydrated, well nourished. ASSESSMENT/PLAN: control counseling All contraceptive options were discussed with the patient. R/B/A explained. All questions answered. Pt understands risks including but not limited to increased risk of breast cancer, blood clots and stroke. Patient desires Nexplanon as she did well with it before in the past. Order placed. Follow up for 6 week exam first. Will then schedule Nexplanon insertion. Julianna Velazquez, I spent 15 minutes in the visit, with more than 50% of the total rbrl-zd-vvdn time of the visit in counseling / coordination of care. documented in this encounter [facility] 07-15-2024 Telephone encounter Note Patient called back and states she would like to discuss the Nexplanon. Patient is aware that she will not be getting Nexplanon inserted today. Liliya Soriano RN [facility] 07-15-2024 Miscellaneous Notes Patient called back and states she would like to discuss the Nexplanon. Patient is aware that she will not be getting Nexplanon inserted today. Liliya Soriano RN LMTCB. Patient is scheduled to see Dr. Velazquez today. Called patient to get more information about why she is coming in. If she wants to have the nexplanon inserted, will need to place orders prior to her visit. Rowan Macias MA documented in this encounter [facility] 07-15-2024 Telephone encounter Note LMTCB. Patient is scheduled to see Dr. Velazquez today. Called patient to get more information about why she is coming in. If she wants to have the nexplanon inserted, will need to place orders prior to her visit. Rowan Macias MA [facility] 07-07-2024 Note HNO ID: [id number] Author: JACI DONOVAN MD Service: ? Author Type: Physician Type: Progress Notes Filed: 07/07/2024 13:23 Note Text: The patient presents for requested ultrasound. Full report available in the Imaging tab in [facility]. Jaci Donovan MD [facility] 07-07-2024 History of Presen t illness Narrative The patient presents for requested ultrasound. Full report available in the Imaging tab in [facility]. Jaci Donovan MD documented in this encounter [facility] 07-07-2024 Note HNO ID: [id number] Author: JULIANNA VELAZQUEZ MD Service: ? Author Type: Physician Type: Progress Notes Filed: 07/07/2024 15:35 Note Text: Bertin Mcduffie is a 28 year old female who presents for follow up. HPI: She saw her PCP last week for bleeding who ordered a pelvic ultrasound. The pelvic US report stated they could not rule out retained POC's and recommended follow up US and HCG levels. She reports bleeding is different this time that her last 3 experiences. She states at times bleeding is scant but with certain movements she will notices a sudden gush of bleeding. She feels she is not bleeding as much this time as she did the last few times. Bleeding is less. She is worried there is a clot preventing her from bleeding as much as she typically does. No fevers or severe pain. She notices more cramping as she is moving around and active. 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 History Comments: Sexual Activity: Not Asked; No partner data on record Contraception: No contraception data on record PAST MEDICAL HISTORY Diagnosis Date Anemia Borderline personality disorder (HCC) Depression with anxiety Diabetes, gestational Factor V Leiden (HCC) Diagnosed 2015 History of gestational diabetes in prior , currently 01/12/2024 depression Seizure (HCC) Seizures (HCC) 06/15/2012 Seizures (HCC) 09/08/2023 Last seizure 2022, admisssions to [facility] 09/07 aand 11/02 Dr Oz Terrazas PAST SURGICAL HISTORY Procedure Laterality Date DANDC, DIAG AND/OR THERAPEUTIC 2016 and 2021 FAMILY HISTORY Problem Relation Age of Onset Thyroid Mother Diabetes Mother Hypertension Mother Migraines Mother other (ibs) Mother Arthritis Mother Depression Mother Anxiety disorder Mother Factor 5 Leiden Father Heart Father Hypertension Father Thyroid Father Migraines Father Depression Father Anxiety disorder Father Depression Brother Post-Traumatic Stress Disorder Brother Anxiety disorder Brother Hypertension Maternal Grandmother Glaucoma Maternal Grandmother Arthritis Maternal Grandmother Osteoporosis Maternal Grandmother other (degenerative disc) Maternal Grandmother No Known Problems Maternal Grandfather other (degenerative disc) Paternal Grandmother No Known Problems Paternal Grandfather Seizures No Family History Social History Tobacco Use Smoking status: Former Current packs/day: 0.00 Types: Cigarettes Start date: 2012 Quit date: 2020 Years since quittin.0 Smokeless tobacco: Never Tobacco comments: vape Vaping Use Vaping status: current everyday user Substances: Nicotine Devices: Pre-filled pod Substance Use Topics Alcohol use: Not Currently Drug use: Not Currently Types: Marijuana Comment: Last used december Current Outpatient Medications Medication Sig enoxaparin sodium (LOVENOX SUBCUTANEOUS) Inject subcutaneously. lamoTRIgine ER (LAMICTAL XR) 100 mg 24 hr tablet Take 1 tablet by mouth daily at bedtime. Take with the 300 mg tabelt. Total dose = 400 mg/day. lamoTRIgine ER (LAMICTAL XR) 300 mg 24 hr tablet Take 1 tablet by mouth daily at bedtime. ondansetron (ZOFRAN) 4 mg tablet Take by mouth every 8 hours as needed for nausea/vomiting. sertraline (ZOLOFT) 100 mg tablet Take 1 tablet by mouth once daily. Lzoursqb-Cs-Ymx-Fe-FA tab Take 1 tablet by mouth once daily. folic acid 1 mg tablet Take 4 tablets by mouth once daily. VIT 10-IRON FUM-FOLIC ORAL Take by mouth. Blood Pressure Test Kit-Large (QUICK RESPONSE BP MONITOR) 1 Each once daily. Blood Pressure Test Kit-Large (QUICK RESPONSE BP MONITOR) 1 Each once daily. Magnesium Oxide 420 mg tab Take 1 tablet by mouth daily at bedtime. (Patient not taking: Reported on 07/07/2024) aspirin, enteric coated (ECOTRIN LOW STRENGTH) 81 mg EC tablet Take 1 tablet by mouth once daily. (Patient not taking: Reported on 07/07/2024) No current facility-administered medications for this visit. Allergies As of Date: 07/07/2024 (No Known Allergies) Fully Assessed 07/07/2024 REVIEW OF SYSTEMS Expanded ROS: See HPI Allergies and current medication updated:Yes SENSITIVE EXAM: Sensitive exam not performed. EXAM: BP 120/72 Wt 157 lb (71.2kg) LMP 09/24/2023 GENERAL: pleasant, female in no apparent distress HEENT: Normocephalic and atraumatic NECK: full range of motion DERMATOLOGY: Normal, without lesions, non-icteric, and non-hirsute BREAST: deferred CHEST: Normal inspiratory effort ABDOMEN: soft, non-tender, and no masses, no fundal tenderness PELVIC: deferred BIMANUAL: deferred NEURO: exam grossly non-focal EXTREMITIES: normal ASSESSMENT AND PLAN: Assessment AND Plan hemorrhage, unspecified type Orders: PELVIC US W (more content not included)... [facility] 07-07-2024 History of Presen t illness Narrative Bertin Mcduffie is a 28 year old female who presents for follow up. HPI: She saw her PCP last week for bleeding who ordered a pelvic ultrasound. The pelvic US report stated they could not rule out retained POC's and recommended follow up US and HCG levels. She reports bleeding is different this time that her last 3 experiences. She states at times bleeding is scant but with certain movements she will notices a sudden gush of bleeding. She feels she is not bleeding as much this time as she did the last few times. Bleeding is less. She is worried there is a clot preventing her from bleeding as much as she typically does. No fevers or severe pain. She notices more cramping as she is moving around and active. 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 History Comments: Sexual Activity: Not Asked; No partner data on record Contraception: No contraception data on record PAST MEDICAL HISTORY Diagnosis Date Anemia Borderline personality disorder (HCC) Depression with anxiety Diabetes, gestational Factor V Leiden (HCC) Diagnosed 2015 History of gestational diabetes in prior , currently 01/12/2024 depression Seizure (HCC) Seizures (HCC) 06/15/2012 Seizures (HCC) 09/08/2023 Last seizure 2022, admisssions to [facility] 09/07 aand 11/02 Dr Oz Terrazas PAST SURGICAL HISTORY Procedure Laterality Date D&C, DIAG AND/OR THERAPEUTIC 2016 and 2021 FAMILY HISTORY Problem Relation Age of Onset Thyroid Mother Diabetes Mother Hypertension Mother Migraines Mother other (ibs) Mother Arthritis Mother Depression Mother Anxiety disorder Mother Factor 5 Leiden Father Heart Father Hypertension Father Thyroid Father Migraines Father Depression Father Anxiety disorder Father Depression Brother Post-Traumatic Stress Disorder Brother Anxiety disorder Brother Hypertension Maternal Grandmother Glaucoma Maternal Grandmother Arthritis Maternal Grandmother Osteoporosis Maternal Grandmother other (degenerative disc) Maternal Grandmother No Known Problems Maternal Grandfather other (degenerative disc) Paternal Grandmother No Known Problems Paternal Grandfather Seizures No Family History Social History Tobacco Use Smoking status: Former Current packs/day: 0.00 Types: Cigarettes Start date: 2012 Quit date: 2020 Years since quittin.0 Smokeless tobacco: Never Tobacco comments: vape Vaping Use Vaping status: current everyday user Substances: Nicotine Devices: Pre-filled pod Substance Use Topics Alcohol use: Not Currently Drug use: Not Currently Types: Marijuana Comment: Last used mid December Current Outpatient Medications Medication Sig enoxaparin sodium (LOVENOX SUBCUTANEOUS) Inject subcutaneously. lamoTRIgine ER (LAMICTAL XR) 100 mg 24 hr tablet Take 1 tablet by mouth daily at bedtime. Take with the 300 mg tabelt. Total dose = 400 mg/day. lamoTRIgine ER (LAMICTAL XR) 300 mg 24 hr tablet Take 1 tablet by mouth daily at bedtime. ondansetron (ZOFRAN) 4 mg tablet Take by mouth every 8 hours as needed for nausea/vomiting. sertraline (ZOLOFT) 100 mg tablet Take 1 tablet by mouth once daily. Gmrgtuau-Ec-Nps-Fe-FA tab Take 1 tablet by mouth once daily. folic acid 1 mg tablet Take 4 tablets by mouth once daily. VIT 10-IRON FUM-FOLIC ORAL Take by mouth. Blood Pressure Test Kit-Large (QUICK RESPONSE BP MONITOR) 1 Each once daily. Blood Pressure Test Kit-Large (QUICK RESPONSE BP MONITOR) 1 Each once daily. Magnesium Oxide 420 mg tab Take 1 tablet by mouth daily at bedtime. (Patient not taking: Reported on 07/07/2024) aspirin, enteric coated (ECOTRIN LOW STRENGTH) 81 mg EC tablet Take 1 tablet by mouth once daily. (Patient not taking: Reported on 07/07/2024) No current facility-administered medications for this visit. Allergies As of Date: 07/07/2024 (No Known Allergies) Fully Assessed 07/07/2024 REVIEW OF SYSTEMS Expanded ROS: See HPI Allergies and current medication updated:Yes SENSITIVE EXAM: Sensitive exam not performed. EXAM: BP 120/72 Wt 157 lb (71.2kg) LMP 09/24/2023 GENERAL: pleasant, female in no apparent distress HEENT: Normocephalic and atraumatic NECK: full range of motion DERMATOLOGY: Normal, without lesions, non-icteric, and non-hirsute BREAST: deferred CHEST: Normal inspiratory effort ABDOMEN: soft, non-tender, and no masses, no fundal tenderness PELVIC: deferred BIMANUAL: deferred NEURO: exam grossly non-focal EXTREMITIES: normal ASSESSMENT AND PLAN: Assessment & Plan hemorrhage, unspecified type Orders: PELVIC US [facility]; Future Follow-up exam Orders: PELVIC US [facility]; Future bleeding is less that what it was with last deliveries. Bleeding minimal. No evidence of infection. Repeat [facility] pelvic US today and final report pending. Several images reviewed with senior manufacturing technician and appears most consistent with blood present in the uterus, with no obvious retained POC's. Pelvic US images reviewed from US last week and images most consistent with blood. Discussed with patient reasons to call. Discussed option for in office IPAS given limitations with ultrasound imaging. Discussed with patient my schedule is on hold tomorrow for a possible IPAS and reviewed r/b/a IPAS or suction D&C. Patient would like expectant management given low suspicion for retained POC's, and will call the office with any changes. RTO 6 week . Will wait for final US report. Julianna Velazquez, I spent 20 minutes in the visit, with more than 50% of the total ssjf-ab-zlan time of the visit in counseling / coordination of care. documented in this encounter [facility] 07-06-2024 Telephone encounter Note Patient called and appointment rescheduled for tomorrow. Liliya Soriano RN [facility] 07-06-2024 Miscellaneous Notes Patient called and appointment rescheduled for tomorrow. Liliya Soriano RN PP patient called. She has an appointment today at 1:30 for possible retained POC. She can not make it then. Asking if she can come at 3:00 PM or later. Sirisha Nelson RN documented in this encounter [facility] 07-06-2024 Telephone encounter Note PP patient called. She has an appointment today at 1:30 for possible retained POC. She can not make it then. Asking if she can come at 3:00 PM or later. Sirisha Nelson RN [facility] 07-06-2024 Telephone encounter Note Spoke with pt gave information information provided. Pt voices understanding. [facility] 07-06-2024 Miscellaneous Notes Spoke with pt gave information information provided. Pt voices understanding. Please call patient and let her know that US of abd does show mild fatty liver (which would explain the slight increase in liver enzymes) and some gallstones without any swelling, inflammation, or bile back up. Adjusting diet to increase veggies and decrease fried/fatty foods will help both of these. We will just continue to monitor this unless having significant pain. Also, US of pelvis does show endometrial thickening with possibility of retained products of conception. I spoke with her OBGYN office to discuss these results and they should be reaching out to patient to schedule appointment. OB will be taking this over since she is so newly post-. Thank you, Rosana Evans APRN.SURVEY TECHNOLOGIST Waiting for imagining results to determine next steps. Thank you, Rosana Evans APRN.SURVEY TECHNOLOGIST Patient notified of results and provider's instructions. Patient verbalizes understanding. Patient states that she still feels like crap. Patient does not feel lightheaded like she was feeling. Patient states that her pain however has increased. Patient had ultrasounds done this morning. Please watch for results and advise. Georgina Roman RN Left message to return call. Please call patient and let her know that lab work results overall look good. Hgb is very slightly low but not concerning at all for significant anemia. Iron is slightly low so I would recommend starting an otc iron supplement if she isn't taking one already. Liver enzymes are slightly elevated. I would like to just repeat these in 2 weeks. Again, these are not significantly elevated but these are a change from priors. Please see how patient is feeling. Any increase in bleeding? Is she scheduled for ultrasound, I don't see it in computer if so? Thank you, Rosana Evans APRN.SURVEY TECHNOLOGIST documented in this encounter [facility] 07-06-2024 Telephone encounter Note Please call patient and let her know that US of abd does show mild fatty liver (which would explain the slight increase in liver enzymes) and some gallstones without any swelling, inflammation, or bile back up. Adjusting diet to increase veggies and decrease fried/fatty foods will help both of these. We will just continue to monitor this unless having significant pain. Also, US of pelvis does show endometrial thickening with possibility of retained products of conception. I spoke with her OBGYN office to discuss these results and they should be reaching out to patient to schedule appointment. OB will be taking this over since she is so newly post-. Thank you, Rosana Evans APRN.SURVEY TECHNOLOGIST [facility] 07-06-2024 Telephone encounter Note New rx with new diagnosis. Thank you, Rosana Evans APRN.CNP [facility] 07-06-2024 Miscellaneous Notes New rx with new diagnosis. Thank you, Rosana Evans APRN.CNP Xi calls to request a diagnosis for blood pressure cuff that would be covered. Abnormal uterine bleeding isn't covered. Patient doesn't have a diagnosis of HTN and I don't see any diagnosis that would cover the cuff. Xi asking if provider would like to try any other diagnosis codes. If so she would need a new prescription. If not, please call Xi back at [phone] EXT 3. Jason Chakraborty RN documented in this encounter [facility] 07-04-2024 Telephone encounter Note Xi calls to request a diagnosis for blood pressure cuff that would be covered. Abnormal uterine bleeding isn't covered. Patient doesn't have a diagnosis of HTN and I don't see any diagnosis that would cover the cuff. Xi asking if provider would like to try any other diagnosis codes. If so she would need a new prescription. If not, please call Xi back at [phone] EXT 3. Jason Chakraborty RN [facility] 07-04-2024 Telephone encounter Note Waiting for imagining results to determine next steps. Thank you, Rosana Evans APRN.SURVEY TECHNOLOGIST [facility] 07-04-2024 Telephone encounter Note Patient notified of results and provider's instructions. Patient verbalizes understanding. Patient states that she still feels like crap. Patient does not feel lightheaded like she was feeling. Patient states that her pain however has increased. Patient had ultrasounds done this morning. Please watch for results and advise. Georgina Roman RN [facility] 07-04-2024 Telephone encounter Note Left message to return call. [facility] 07-04-2024 Telephone encounter Note Please call patient and let her know that lab work results overall look good. Hgb is very slightly low but not concerning at all for significant anemia. Iron is slightly low so I would recommend starting an otc iron supplement if she isn't taking one already. Liver enzymes are slightly elevated. I would like to just repeat these in 2 weeks. Again, these are not significantly elevated but these are a change from priors. Please see how patient is feeling. Any increase in bleeding? Is she scheduled for ultrasound, I don't see it in computer if so? Thank you, Rosana Evans APRN.SURVEY TECHNOLOGIST [facility] 07-04-2024 History of Presen t illness Narrative Radiology Service Progress Note PATIENT NAME: Bertin Mcduffie DATE OF SERVICE: July 04, 2024 TIME: 11:40 AM PATIENT IDENTITY VERIFICATION COMPLETED USING TWO (2) IDENTIFIERS: Name and Date of confirmed by patient verbally. FALL SCREENING: Has the patient had 2 falls in the last year or 1 fall with injury or currently using an Ambulatory Assistive Device (Walker, Cane, Wheelchair, Crutches, etc.)? No PATIENT GENDER DATA: Assigned female at . status: : No status: YES pt is 1 week . PATIENT RELEVANT IMPLANT DATA REVIEWED: Not Applicable PATIENT PRESENTS WITH AN IMPLANTABLE OR ATTACHED EPIC TRAINER: No RADIOLOGY DEPARTMENT: Ultrasound PERIPHERAL IV DATA: Not applicable SIGNED BY: Belgica Brown RDMS [facility] July 04, 2024 11:40 AM documented in this encounter [facility] 07-04-2024 Note HNO ID: [id number] Author: BELGICA BROWN RDMS Service: ? Author Type: Sample Puller Type: Progress Notes Filed: 07/04/2024 11:40 Note Text: Radiology Service Progress Note PATIENT NAME: Bertin Mcduffie DATE OF SERVICE: July 04, 2024 TIME: 11:40 AM PATIENT IDENTITY VERIFICATION COMPLETED USING TWO (2) IDENTIFIERS: Name and Date of confirmed by patient verbally. FALL SCREENING: Has the patient had 2 falls in the last year or 1 fall with injury or currently using an Ambulatory Assistive Device (Walker, Cane, Wheelchair, Crutches, etc.)? No PATIENT GENDER DATA: Assigned female at . status: : No status: YES pt is 1 week . PATIENT RELEVANT IMPLANT DATA REVIEWED: Not Applicable PATIENT PRESENTS WITH AN IMPLANTABLE OR ATTACHED EPIC TRAINER: No RADIOLOGY DEPARTMENT: Ultrasound PERIPHERAL IV DATA: Not applicable SIGNED BY: Belgica Brown RDMS [facility] July 04, 2024 11:40 AM [facility] 07-01-2024 Telephone encounter Note The following approved medication requests have been transmitted electronically. Requested Prescriptions Signed Prescriptions Disp Refills Blood Pressure Test Kit-Large (QUICK RESPONSE BP MONITOR) 1 Each 0 Si Each once daily. Authorizing Provider: CARLOS BIRD Ordering User: RONEL AYERS APRN.SURVEY TECHNOLOGIST [facility] Work Phone: 07-01-2024 Miscellaneous Notes The following approved medication requests have been transmitted electronically. Requested Prescriptions Signed Prescriptions Disp Refills Blood Pressure Test Kit-Large (QUICK RESPONSE BP MONITOR) 1 Each 0 Si Each once daily. Authorizing Provider: CARLOS BIRD Ordering User: RONEL AYERS APRN.SURVEY TECHNOLOGIST We do PAs for medicines. Any PA for supplies would be done with a DME company not pharmacy or providers staff. Reviewed with pt. [facility] does have [facility] there at their site. Pended rx to send to [facility] asking them to have [place] complete any PA is needed or covered. Please review and send rx to the [facility] pharmacy. Pt calling and she needs a PA done to get a BP cuff.. [facility] telling her she needs to have a PA done. Please advise pt. PRIOR AUTHORIZATION Medication for Prior Authorization: Blood pressure cuff Other formulary meds available : NO Insurance Company: [employer] phone number: [phone] Patient insurance ID number: [id number] Suellen Zamora LPN documented in this encounter [facility] 07-01-2024 Telephone encounter Note We do PAs for medicines. Any PA for supplies would be done with a DME company not pharmacy or providers staff. Reviewed with pt. [facility] does have [employer] [facility] there at their site. Pended rx to send to [facility] asking them to have [facility] complete any PA is needed or covered. Please review and send rx to the [facility] pharmacy. [facility] 07-01-2024 Telephone encounter Note Pt calling and she needs a PA done to get a BP cuff.. [facility] telling her she needs to have a PA done. Please advise pt. PRIOR AUTHORIZATION Medication for Prior Authorization: Blood pressure cuff Other formulary meds available : NO Insurance Company: [employer] phone number: [phone] Patient insurance ID number: [id number] Suellen Zamora LPN [facility] 07-01-2024 History of Presen t illness Narrative Chief Complaint Patient presents with: irgular heart beat and dizziness since delievery HPI Bertin Mcduffie is a 28 year old female who presents here today for Above Complaints. Bertin is an established patient of Dr. Bird, DO. Concerns today... Recently x 4 days. Delivered baby boy on 06/27/24. Hx of factor V leiden, discharged on lovenox x 6 weeks. reports significant blood loss during delivery and pt was given vitamin K injection to stop the bleeding. Pt reports very minimal bleeding since discharge. Only having to wear a liner pad. This is 4th child and pt reports significant less bleeding so far this time. Pt is . Does report uterine contractions with . Pt initially made appointment d/t concerns for elevated HP and BP readings at home via [email or web address] watch. Reports episodes of increase HR with palpitations that leads to blurred vision. Pt reports episodes of spots in vision with dizziness that will last a few minutes and then resolve on own. Reports episodes occur mainly with position change. Pt was concerned this was elevated BP. Pt reports systolic BP from watch to be 120-140? Pt reports SOB with exertion. Pt also reports mild RUQ abd pain. Reports hx of gallstones during that were found during ultrasound. Pt denies current symptoms associated with food. Reports RUQ abd pain is pretty stable and mild. Hx of epilepsy. On lamictal regimen. Did need dosage change during . Was told to follow up with neurology a few months post to adjust dosage again. Last 14 Encounter BP Readings: Date: BP: 07/01/2024 90/60 06/23/2024 116/78 06/17/2024 114/62 06/03/2024 110/62 05/20/2024 102/60 04/26/2024 102/60 04/15/2024 110/64 04/01/2024 118/64 03/14/2024 90/64 03/04/2024 116/68 02/16/2024 120/60 02/01/2024 98/60 01/12/2024 100/60 10/29/2023 92/54 Past medical history, appointments, medications, allergies reviewed. Previous Medical History PAST MEDICAL HISTORY Diagnosis Date Anemia Borderline personality disorder (HCC) Depression with anxiety Diabetes, gestational Factor V Leiden (HCC) Diagnosed 2015 History of gestational diabetes in prior , currently 01/12/2024 depression Seizure (HCC) Seizures (HCC) 06/15/2012 Seizures (HCC) 09/08/2023 Last seizure 2022, admisssions to [facility] 09/07 aand 11/02 Dr Oz Terrazas Previous Surgical History PAST SURGICAL HISTORY Procedure Laterality Date D&C, DIAG AND/OR THERAPEUTIC 2016 and 2021 Family History FAMILY HISTORY Problem Relation Age of Onset Thyroid Mother Diabetes Mother Hypertension Mother Migraines Mother other (ibs) Mother Arthritis Mother Depression Mother Anxiety disorder Mother Factor 5 Leiden Father Heart Father Hypertension Father Thyroid Father Migraines Father Depression Father Anxiety disorder Father Depression Brother Post-Traumatic Stress Disorder Brother Anxiety disorder Brother Hypertension Maternal Grandmother Glaucoma Maternal Grandmother Arthritis Maternal Grandmother Osteoporosis Maternal Grandmother other (degenerative disc) Maternal Grandmother No Known Problems Maternal Grandfather other (degenerative disc) Paternal Grandmother No Known Problems Paternal Grandfather Seizures No Family History Patient Allergies ALLERGIES No Known Allergies Current Medications Current Outpatient Medications on File Prior to Visit Medication Sig Magnesium Oxide 420 mg tab Take 1 tablet by mouth daily at bedtime. lamoTRIgine ER (LAMICTAL XR) 100 mg 24 hr tablet Take 1 tablet by mouth daily at bedtime. Take with the 300 mg tabelt. Total dose = 400 mg/day. (Patient not taking: Reported on 04/26/2024) lamoTRIgine ER (LAMICTAL XR) 300 mg 24 hr tablet Take 1 tablet by mouth daily at bedtime. ondansetron (ZOFRAN) 4 mg tablet Take by mouth every 8 hours as needed for nausea/vomiting. aspirin, enteric coated (ECOTRIN LOW STRENGTH) 81 mg EC tablet Take 1 tablet by mouth once daily. sertraline (ZOLOFT) 100 mg tablet Take 1 tablet by mouth once daily. Bhjhltqc-Vw-Wwx-Fe-FA tab Take 1 tablet by mouth once daily. folic acid 1 mg tablet Take 4 tablets by mouth once daily. VIT 10-IRON FUM-FOLIC ORAL Take by mouth. No current facility-administered medications on file prior to visit. Social History Social History Tobacco Use Smoking status: Former Current packs/day: 0.00 Types: Cigarettes Start date: 2012 Quit date: 2020 Years since quittin.0 Smokeless tobacco: Never Tobacco comments: vape Vaping Use Vaping status: current everyday user Substances: Nicotine Devices: Pre-filled pod Substance Use Topics Alcohol use: Not Currently Drug use: Not Currently Types: Marijuana Comment: Last used mid December REVIEW OF SYSTEMS: as above Reviewed relevant PMHx, PSHx, Social Hx, current medications and allergies. Review of Symptoms REVIEW OF SYSTEMS See HPI. EXAM: BP 90/60 (BP Site: Left Arm, BP Position: Sitting, BP Cuff Size: Large Adult) Pulse 90 Wt 72.8 kg (160 lb 9.6 oz) LMP 09/24/2023 (Exact Date) SpO2 98% BMI 27.14 kg/m General Appearance: Well appearing, alert, in no acute distress, well-hydrated, well nourished.. Skin: Skin color, texture, turgor normal, no suspicious rashes or lesions. Head: Normocephalic, no masses, lesions, tenderness or abnormalities. Lungs: Lungs clear to auscultation. No wheezing, rhonchi, rales.. Heart: RRR without murmur, gallop, or rubs. No ectopy. Abdomen: Normal abdominal exam, Abdomen soft, non-tender. Bowel sounds normal. No masses, organomegaly, no discomfort with palpitation of fundas. Fundas is firm. Neurologic: Gait normal. Reflexes normal and symmetric. Sensation grossly intact.. Health Maintenance List HPV Vaccine(3 - 2-dose series) due on 06/16/2010 Anxiety Screening Never done Covid-19 Vaccine(2023- season) Never done Cervical Cancer Screening due on 01/11/2027 DTaP,Tdap,Td Vaccine(11 - Td or Tdap) due on 04/26/2034 Influenza Vaccine Completed Hepatitis C Screening Completed HIV Screening Completed Hepatitis B Vaccine Discontinued ASSESSMENT/PLAN: 1. Abnormal uterine bleeding, - ICD9: 666.14, ICD10: O72.1 (primary diagnosis) Concern for hemorrhage d/t being on lovenox and/or anemia d/t significant amount of blood loss during delivery. Lab work as below. Checking for anemia, iron deficiency, and blood sugar. US of abd and pelvis -- looking for retained placenta - LOVENOX SUBCUTANEOUS - COMPLETE BLOOD COUNT AND DIFFERENTIAL - IRON AND TIBC - FERRITIN - COMPREHENSIVE METABOLIC PANEL - US ABDOMEN COMPLETE - UA DIP, URINE (POC) - BLOOD PRESSURE TEST KIT-LARGE CUFF - HEMOGLOBIN A1C - US FEMALE PELVIS TRANSABD LTD 2. Seizure disorder (HCC) - ICD9: 345.90, ICD10: G40.909 If no abnormalities with lab work and US -- she needs to follow up with neurology about Lamictal dosage given the recent change during . 3. SOB (shortness of breath) on exertion - ICD9: 786.05, ICD10: R06.02 Concern for anemia. See above. - COMPLETE BLOOD COUNT AND DIFFERENTIAL - IRON AND TIBC - FERRITIN - COMPREHENSIVE METABOLIC PANEL - US ABDOMEN COMPLETE - UA DIP, URINE (POC) - US FEMALE PELVIS TRANSABD LTD 4. RUQ abdominal pain - ICD9: 789.01, ICD10: R10.11 Reassess gallbladder d/t hx of gallstones during . Less likely differential given HPI. See above plan. - US FEMALE PELVIS TRANSABD LTD 5. History of gestational diabetes - ICD9: V12.21, ICD10: Z86.32 Recheck blood sugar levels. - HEMOGLOBIN A1C - US FEMALE PELVIS TRANSABD LTD 6. Factor V Leiden (HCC) - ICD9: 289.81, ICD10: D68.51 Continue on lovenox as instructed. Concern for anemia d/t blood loss from bleeding. Discussed with patient that if any symptoms worsen over the weekend, she needs to go to emergency room [facility]. If PP bleeding picks up, she needs to go to ER. RTO as needed. Prescription instructions reviewed with patient as applicable. Potential red flag symptoms discussed with the patient. Reviewed appropriate action plan to take if red flag symptoms occur. Patient agreeable to treatment plan. Rosana Evans APRN.CNP [address] [place] [address] documented in this encounter [facility] 07-01-2024 Note HNO ID: [id number] Author: ROSANA EVANS APRN.CNP Service: ? Author Type: Nurse Practitioner Type: Progress Notes Filed: 07/01/2024 12:47 Note Text: Chief Complaint Patient presents with: irgular heart beat and dizziness since delievery HPI Bertin Mcduffie is a 28 year old female who presents here today for Above Complaints. Bertin is an established patient of Dr. Pelon DO. Concerns today... Recently x 4 days. Delivered baby boy on 06/27/24. Hx of factor V leiden, discharged on lovenox x 6 weeks. reports significant blood loss during delivery and pt was given vitamin K injection to stop the bleeding. Pt reports very minimal bleeding since discharge. Only having to wear a liner pad. This is 4th child and pt reports significant less bleeding so far this time. Pt is . Does report uterine contractions with . Pt initially made appointment d/t concerns for elevated HP and BP readings at home via [employer] watch. Reports episodes of increase HR with palpitations that leads to blurred vision. Pt reports episodes of spots in vision with dizziness that will last a few minutes and then resolve on own. Reports episodes occur mainly with position change. Pt was concerned this was elevated BP. Pt reports systolic BP from watch to be 120-140? Pt reports SOB with exertion. Pt also reports mild RUQ abd pain. Reports hx of gallstones during that were found during ultrasound. Pt denies current symptoms associated with food. Reports RUQ abd pain is pretty stable and mild. Hx of epilepsy. On lamictal regimen. Did need dosage change during . Was told to follow up with neurology a few months post to adjust dosage again. Last 14 Encounter BP Readings: Date: BP: 07/01/2024 90/60 06/23/2024 116/78 06/17/2024 114/62 06/03/2024 110/62 05/20/2024 102/60 04/26/2024 102/60 04/15/2024 110/64 04/01/2024 118/64 03/14/2024 90/64 03/04/2024 116/68 02/16/2024 120/60 02/01/2024 98/60 01/12/2024 100/60 10/29/2023 92/54 Past medical history, appointments, medications, allergies reviewed. Previous Medical History PAST MEDICAL HISTORY Diagnosis Date Anemia Borderline personality disorder (HCC) Depression with anxiety Diabetes, gestational Factor V Leiden (HCC) Diagnosed 2015 History of gestational diabetes in prior , currently 01/12/2024 depression Seizure (HCC) Seizures (HCC) 06/15/2012 Seizures (HCC) 09/08/2023 Last seizure 2022, admisssions to [facility] 09/07 aand 11/02 Dr Oz Terrazas Previous Surgical History PAST SURGICAL HISTORY Procedure Laterality Date DANDC, DIAG AND/OR THERAPEUTIC 2016 and 2021 Family History FAMILY HISTORY Problem Relation Age of Onset Thyroid Mother Diabetes Mother Hypertension Mother Migraines Mother other (ibs) Mother Arthritis Mother Depression Mother Anxiety disorder Mother Factor 5 Leiden Father Heart Father Hypertension Father Thyroid Father Migraines Father Depression Father Anxiety disorder Father Depression Brother Post-Traumatic Stress Disorder Brother Anxiety disorder Brother Hypertension Maternal Grandmother Glaucoma Maternal Grandmother Arthritis Maternal Grandmother Osteoporosis Maternal Grandmother other (degenerative disc) Maternal Grandmother No Known Problems Maternal Grandfather other (degenerative disc) Paternal Grandmother No Known Problems Paternal Grandfather Seizures No Family History Patient Allergies ALLERGIES No Known Allergies Current Medications Current Outpatient Medications on File Prior to Visit Medication Sig Magnesium Oxide 420 mg tab Take 1 tablet by mouth daily at bedtime. lamoTRIgine ER (LAMICTAL XR) 100 mg 24 hr tablet Take 1 tablet by mouth daily at bedtime. Take with the 300 mg tabelt. Total dose = 400 mg/day. (Patient not taking: Reported on 04/26/2024) lamoTRIgine ER (LAMICTAL XR) 300 mg 24 hr tablet Take 1 tablet by mouth daily at bedtime. ondansetron (ZOFRAN) 4 mg tablet Take by mouth every 8 hours as needed for nausea/vomiting. aspirin, enteric coated (ECOTRIN LOW STRENGTH) 81 mg EC tablet Take 1 tablet by mouth once daily. sertraline (ZOLOFT) 100 mg tablet Take 1 tablet by mouth once daily. Hquilino-Sm-Mwn-Fe-FA tab Take 1 tablet by mouth once daily. folic acid 1 mg tablet Take 4 tablets by mouth once daily. VIT 10-IRON FUM-FOLIC ORAL Take by mouth. No current facility-administered medications on file prior to visit. Social History Social History Tobacco Use Smoking status: Former Current packs/day: 0.00 Types: Cigarettes Start date: 2012 Quit date: 2020 Years since quittin.0 Smokeless tobacco: Never Tobacco comments: vape Vaping Use Vaping status: current everyday user Substances: Nicotine Devices: Pre-filled pod Substance Use Topics Alcohol use: Not Currently Drug use: (more content not included)... [facility] 06-28-2024 Note [facility] Medical Records Department [facility] [place] [address] Discharge Summary 06/28/24 0832 MR#: [id number] Acct: [id number] Name: BERTIN MCDUFFIE Rep #: [id number] : 1995 28 From: Simona Yanez MD PCP: ROSANA EVANS BLAST FURNACE TENDER-C Status:ADM IN Location: [place] [address] Providers Date of Admission: 06/27/24 Primary Care Physician: Rosana Evans, SIGNALING PROJECT ENGINEER-C Reason For Visit: VAGINAL DELIVERY Diagnosis Discharge Diagnosis (1) (spontaneous vaginal delivery): Status: Acute Code(s): O80 - Encounter for full-term uncomplicated delivery (2) Factor V Leiden: Status: Acute Code(s): D68.51 - Activated protein C resistance Plan Plan for d/c to home later today Needs lovenox for 6 weeks PP Medications at Discharge Home Medications buspirone 15 mg tablet 15 mg PO BID 02/12/22 lurasidone 80 mg tablet (Latuda) 80 mg PO DAILY 02/12/22 ondansetron 4 mg disintegrating tablet 4 mg PO Q8H PRN PRN Nausea #10 tabs 03/03/24 cyclobenzaprine 10 mg tablet 10 mg PO TID PRN PRN muscle spasm 06/27/24 folic acid 1 mg tablet 4 mg PO DAILY 06/27/24 lamotrigine 300 mg tablet,extended release 24 hr 300 mg PO 06/27/24 lamotrigine 50 mg tablet,extended release 24 hr 50 mg PO DAILY 06/27/24 vits no.130-ferrous fum 27 mg iron-folic acid 800 mcg tablet ( Vitamin) 1 tab PO DAILY 06/27/24 sertraline 100 mg tablet 100 mg PO DAILY 06/27/24 acetaminophen 500 mg tablet 1,000 mg (2 x 500 mg) PO Q6H PRN PRN Pain 1-10 Or Fever #0 tabs 06/28/24 enoxaparin 40 mg/0.4 mL subcutaneous syringe 40 mg (0.4 mL) subcut DAILY@1730 6 weeks #20 mL 06/28/24 naproxen 500 mg tablet 500 mg PO Q8H PRN PRN Pain Score 1-10 #0 tabs 06/28/24 Hospital Course Operations None Summary of Care Provided Minutes Spent on Discharge: 15 Weight / BMI Weight Weight: 177 lb 6.4 oz Body Mass Index (BMI) 29.5 ABG / Lab / Microbiology Data 06/27/24 02:10 D/C Instructions Discharge Diet: No restrictions Discharge Activity: May Shower May resume sexual activity in: 6 weeks Weight Bearing Status: Weight bearing as tolerated Call your doctor if you observe: Fever of 101 or Higher, Coldness, Increased Pain, Change in Color, Inability to urinate, Inability to have a bowel movement, Using more than 1 pad per hour, Shortness of breath, Dizziness, Fainting spells, Chest pain, Increased palpitations (irregular heartbeat), Calf discomfort and Uncontrolled pain DC O2, CPAP, BIPAP Needs Home O2 Discharge instructions: No Please Follow Up With: Simona Yanez MD When: Follow up in 2 and 6 weeks for visits. Meaningful Use Info Meaningful Use Meaningful Use Diagnoses (Choose all that apply): None applicable Ischemic Stroke Statin Dosing Therapy Reference: STATIN DOSE THERAPY REFERENCE: * Patients > 75 years receive moderate or high dose statin therapy. * Patients 75 years or YOUNGER should receive HIGH intensity statin dose unless contraindicated. You will be required to document reason for non-treatment if statin daily dose does not meet guidelines. HIGH DOSE STATIN THERAPY DAILY Atorvastatin > than or = to 40 mg Rosuvastatin > than or = to 20 mg Amlodipine + Atorvastatin > than or = to 2.5/40 mg Ezetimibe + Simvastatin 10/80 mg Simvastatin 80mg Discharge Plan Admission Admit Date/Time: 06/27/24 01:22 Primary Reason for Your Visit: Vaginal delivery Attending Provider: Danyelle Gutierrez Primary Care Provider: Rosana Evans Discharge Orders/Prescriptions Prescriptions: New acetaminophen 500 mg Tablet 1,000 mg PO Q6H PRN PRN (Reason: Pain 1-10 Or Fever) Qty: 0 0RF naproxen 500 mg Tablet 500 mg PO Q8H PRN PRN (Reason: Pain Score 1-10) Qty: 0 0RF enoxaparin 40 mg/0.4 mL Syringe 40 mg subcut DAILY@1730 42 Days Qty: 20 1RF Continued buspirone 15 mg tablet 15 mg PO BID Patient Comments: TAKE 1 TABLET BY MOUTH TWICE DAILY lurasidone [Latuda] 80 mg tablet 80 mg PO DAILY Patient Comments: TAKE 1 TABLET BY MOUTH ONCE DAILY WITH FOOD(AT LEAST 350 CALORIES) ondansetron 4 mg tablet,disintegrating 4 mg PO Q8H PRN PRN (Reason: Nausea) Qty: 10 0RF cyclobenzaprine 10 mg tablet 10 mg PO TID PRN PRN (Reason: muscle spasm) sertraline 100 mg tablet 100 mg PO DAILY folic acid 1 mg tablet 4 mg PO DAILY lamotrigine 50 mg tablet extended release 24hr 50 mg PO DAILY lamotrigine 300 mg tablet extended release 24hr 300 mg PO Vitamin 27 mg iron- 800 mcg tablet 1 tab PO DAILY Discontinued aspirin 81 mg tablet,delayed release (DR/EC) 81 mg PO DAILY Referrals / Follow Up: Rosana Evans, SIGNALING PROJECT ENGINEER-C [Primary Care Provider] - Disposition Disposition (needs filled in before D/C Order can be placed): Home, Self Care 06/28/24 0837 Cosigner Signature (if applicable): (more content not included)... [facility] 06-27-2024 Note HNO ID: [id number] Author: SIRISHA NELSON RN Service: ? Author Type: Registered Nurse Type: Progress Notes Filed: 06/27/2024 10:00 Note Text: Patient delivered via at [facility] on 06/27/24 per Danyelle Gutierrez CNM . See OB Outcome note. Sirisha Nelson RN [facility] 06-27-2024 History of Presen t illness Narrative Patient delivered via at [facility] on 06/27/24 per Danyelle Gutierrez CNM . See OB Outcome note. Sirisha Nelson RN documented in this encounter [facility] 06-23-2024 Note HNO ID: [id number] Author: JOSEPH MEDRANO MD Service: ? Author Type: Physician Type: Progress Notes Filed: 06/23/2024 12:57 Note Text: NST SUMMARY PROVIDER ASSESSMENT AND INTERPRETATION Bertin Mcduffie is a 28 year old female, , who is at 37w5d with an JANE of 07/09/2024, by Ultrasound dating method. Indications for NST: Decreased Movement Baseline: 140 Variability: Moderate Accelerations: Present 15 X 15 Decelerations: None Contractions: TOCO: Irregular Interpretation: Reactive SIGNATURE: Joseph Medrano MD [facility] 06-23-2024 History of Presen t illness Narrative NST SUMMARY PROVIDER ASSESSMENT AND INTERPRETATION Bertin Mcduffie is a 28 year old female, , who is at 37w5d with an JANE of 07/09/2024, by Ultrasound dating method. Indications for NST: Decreased Movement Baseline: 140 Variability: Moderate Accelerations: Present 15 X 15 Decelerations: None Contractions: TOCO: Irregular Interpretation: Reactive SIGNATURE: Joseph Medrano MD documented in this encounter [facility] 06-23-2024 Progress note Formatting of t his note might be different from the original. RR- VB No. LOF No. CTXS No. Movement: decreased last 24 hrs Other c/o: No. Medication list reviewed. SENSITIVE EXAM: The sensitive examination was discussed with the Patient or Patient's Authorized Field Marketing Team Leader. As applicable, any other physician, advance practice provider, medical student, or other health professional student that will be observing or involved in the sensitive examination for educational or training purposes was discussed with the Patient or Authorized Field Marketing Team Leader. The Patient or Authorized Field Marketing Team Leader has agreed to proceed with the sensitive examination. (Sensitive examination includes inspection and/or palpation of the breasts, pelvis, prostate and anorectal regions). Physical Exam See Flow Sheet Abd: soft, nontender, gravid Ext: edema: no A/P 37w5d Estimated Date of Delivery: 07/09/24. Supervision of high risk in third trimester Supervision of high risk in third trimester Orders: URINE OB DIP B/O Seizure disorder (HCC) Seizure disorder (HCC) 37 weeks gestation of Orders: URINE OB DIP B/O Decreased movements in third trimester, single or unspecified fetus NST today r/ba to induction of labor reviewed, desires to proceed locally, consent signed. Joseph Medrano M.D. [facility] 06-23-2024 Miscellaneous Notes RR- VB No. LOF No. CTXS No. Movement: decreased last 24 hrs Other c/o: No. Medication list reviewed. SENSITIVE EXAM: The sensitive examination was discussed with the Patient or Patient's Authorized Field Marketing Team Leader. As applicable, any other physician, advance practice provider, medical student, or other health professional student that will be observing or involved in the sensitive examination for educational or training purposes was discussed with the Patient or Authorized Field Marketing Team Leader. The Patient or Authorized Field Marketing Team Leader has agreed to proceed with the sensitive examination. (Sensitive examination includes inspection and/or palpation of the breasts, pelvis, prostate and anorectal regions). Physical Exam See Flow Sheet Abd: soft, nontender, gravid Ext: edema: no A/P 37w5d Estimated Date of Delivery: 07/09/24. Supervision of high risk in third trimester Supervision of high risk in third trimester Orders: URINE OB DIP B/O Seizure disorder (HCC) Seizure disorder (HCC) 37 weeks gestation of Orders: URINE OB DIP B/O Decreased movements in third trimester, single or unspecified fetus NST today r/ba to induction of labor reviewed, desires to proceed locally, consent signed. Joseph Medrano M.D. documented in this encounter [facility] 06-23-2024 Instructions Virginia Hart MA - 06/23/2024 10:39 AM EST SEQUENTIAL SCREENINGS The [facility] offers sequential screenings for women who are interested in screenings for chromosomal abnormalities and certain defects during a . The sequential screen combines ultrasound and blood tests to determine the risk of chromosomal abnormalities, including Down's Syndrome (Trisomy 21) and Trisomy 18, as well as open neural tube defects including spina bifida. Ultrasound examination is performed between 11 weeks and 13 weeks gestational age. Blood tests are drawn after the ultrasound and again later in the between 15 and 21 weeks gestational age. Please let your physician know if you are interested in this testing. It will require an appointment with our mining technician. This is not an ultrasound performed by a physician in our office during a routine visit. SIGNS AND SYMPTOMS OF LABOR 1. Contractions every 10 minutes or more often 2. Clear, pink, or brownish fluid (water) leaking from vagina 3. Feeling that baby is pushing down, pressure 4. Low, dull backache 5. Cramps that feel like a period 6. Cramps with or without diarrhea If you notice any of the above symptoms, contact our office at [phone] and ask to speak with a nurse. After hours, you can call doctors registry at [phone] OR call [facility] at [phone] and ask to have the doctor java application engineer paged. If you consider this an emergency, dial 0-3-0 or go to your nearest emergency department. NEED HELP? Are you dealing with a violent or abusive relationship? Are you a victim of rape or sexual assult? Call [facility] ([place]) 24 hour Crisis Hotline: 418.478.9922 or 001-086-6440. MANUAL Your Guide to a Healthy manual is now on-line. Visit [email or web address] [email or web address] to download your free copy documented in this encounter [facility] 06-17-2024 Miscellaneous Notes RR- VB No. LOF No. CTXS No. Movement: present. Other c/o: No. Medication list reviewed. Physical Exam See Flow Sheet Abd: soft, nontender, gravid Ext: edema: Trace The sensitive examination was discussed with the Patient or Patient's Authorized Field Marketing Team Leader. As applicable, any other physician, advance practice provider, medical student, or other health professional student that will be observing or involved in the sensitive examination for educational or training purposes was discussed with the Patient or Authorized Field Marketing Team Leader. The Patient or Authorized Field Marketing Team Leader has agreed to proceed with the sensitive examination. (Sensitive examination includes inspection and/or palpation of the breasts, pelvis, prostate and anorectal regions) A/P 36w6d Estimated Date of Delivery: 07/09/24 Labs: GBS done Assessment & Plan Supervision of high risk in third trimester Orders: URINE OB DIP B/O ROUTINE, GROUP B STREP PCR 36 weeks gestation of Orders: URINE OB DIP B/O ROUTINE, GROUP B STREP PCR Seizure disorder (HCC) no seizures in 2 years. Orders: URINE OB DIP B/O Short interval between pregnancies affecting , antepartum Orders: URINE OB DIP B/O Factor V Leiden ([facility]) plan lovenox after delivery Orders: URINE OB DIP B/O .Would like to consider not having epidural, water relief for labor d/w her options for delivery- likely will want to wait for spont labor and deliver in [place] as d/w her if active labor I would have concerns about her traveling an hour to another hospital as each of her labors have been shorter. Desires membrane sweep at 38-39 weeks. Not sure she wants to be induced. Consent signed in case goes to [facility], H[facility] next visit Joseph Medrano M.D. documented in this encounter [facility] 06-17-2024 Progress note Formatting of t his note might be different from the original. RR- VB No. LOF No. CTXS No. Movement: present. Other c/o: No. Medication list reviewed. Physical Exam See Flow Sheet Abd: soft, nontender, gravid Ext: edema: Trace The sensitive examination was discussed with the Patient or Patient's Authorized Field Marketing Team Leader. As applicable, any other physician, advance practice provider, medical student, or other health professional student that will be observing or involved in the sensitive examination for educational or training purposes was discussed with the Patient or Authorized Field Marketing Team Leader. The Patient or Authorized Field Marketing Team Leader has agreed to proceed with the sensitive examination. (Sensitive examination includes inspection and/or palpation of the breasts, pelvis, prostate and anorectal regions) A/P 36w6d Estimated Date of Delivery: 07/09/24 Labs: GBS done Assessment & Plan Supervision of high risk in third trimester Orders: URINE OB DIP B/O ROUTINE, GROUP B STREP PCR 36 weeks gestation of Orders: URINE OB DIP B/O ROUTINE, GROUP B STREP PCR Seizure disorder (HCC) no seizures in 2 years. Orders: URINE OB DIP B/O Short interval between pregnancies affecting , antepartum Orders: URINE OB DIP B/O Factor V Leiden (HCC) plan lovenox after delivery Orders: URINE OB DIP B/O .Would like to consider not having epidural, water relief for labor d/w her options for delivery- likely will want to wait for spont labor and deliver in [place] as d/w her if active labor I would have concerns about her traveling an hour to another hospital as each of her labors have been shorter. Desires membrane sweep at 38-39 weeks. Not sure she wants to be induced. Consent signed in case goes to [facility] next visit Joseph Medrano M.D. [facility] 06-17-2024 Instructions Deanna Garza MA - 06/17/2024 1:05 PM EST SEQUENTIAL SCREENINGS The [facility] offers sequential screenings for women who are interested in screenings for chromosomal abnormalities and certain defects during a . The sequential screen combines ultrasound and blood tests to determine the risk of chromosomal abnormalities, including Down's Syndrome (Trisomy 21) and Trisomy 18, as well as open neural tube defects including spina bifida. Ultrasound examination is performed between 11 weeks and 13 weeks gestational age. Blood tests are drawn after the ultrasound and again later in the between 15 and 21 weeks gestational age. Please let your physician know if you are interested in this testing. It will require an appointment with our mining technician. This is not an ultrasound performed by a physician in our office during a routine visit. SIGNS AND SYMPTOMS OF LABOR 1. Contractions every 10 minutes or more often 2. Clear, pink, or brownish fluid (water) leaking from vagina 3. Feeling that baby is pushing down, pressure 4. Low, dull backache 5. Cramps that feel like a period 6. Cramps with or without diarrhea If you notice any of the above symptoms, contact our office at [phone] and ask to speak with a nurse. After hours, you can call doctors registry at [phone] OR call [facility] at [phone] and ask to have the doctor java application engineer paged. If you consider this an emergency, dial or go to your nearest emergency department. NEED HELP? Are you dealing with a violent or abusive relationship? Are you a victim of rape or sexual assult? Call [facility] ([place]) 24 hour Crisis Hotline: 594.896.1621 or 646-641-8193. MANUAL Your Guide to a Healthy manual is now on-line. Visit [email or web address] [email or web address] to download your free copy documented in this encounter [facility] 06-16-2024 Nurse Note Summary: All Copy Products [employer] 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 Note Hospital Name: [facility] Completed by: Alvarado Hammond RN Date: June 16, 2024 All Copy Products Resource Time: 3 hours: Primary Referral Code: E Phone consult Bertin Cortezf [phone] Preferred Name: Bertin OB Provider: Sirisha Gomes Estimated Date of Delivery: 07/09/24 Designated Support People: Beau (), Bertin would also like her 8 year old daughter Manda to be present as her second visitor Labor Plan: Bertin is hoping for an unmedicated vaginal at either [facility] (if an IOL) or [place] (if spontaneous labor). She plans to breastfeed baby boy Shlomo. She is interested in [facility] if possible. Primary Trigger Themes: Control or loss of control Primary Triggers: Hospital environment Pain medication tradeoffs Labor & Strategies: Bertin is hoping for a low intervention unmedicated . She is interested in using the tub or shower as well as nitrous oxide. She has had epidural with her other 3 children's births. She made it to 6-7 cm with her first, but then needed an epidural due to pitocin augmentation. Her epidurals have all provided excellent pain relief, but she has experienced pain during placement. Bertin does have a history of a seizure disorder which she reports has been stable on medication. She can sense when a seizure is about to happen and states that cold help (ice packs, cold wash cloths etc.). Other Patient Preferences: Bertin is interested in [facility] and care with CNMs if possible. She would like delayed cord clamping of 1-2 minutes if possible. [facility] 06-16-2024 Nurse Note Summary: All Copy Products All Copy Products 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 Note Hospital Name: [facility] Completed by: Alvarado Hammond RN Date: June 16, 2024 [employer] Resource Time: 3 hours: Primary Referral Code: E Phone consult Bertin Mcduffie [phone] Preferred Name: Bertin OB Provider: Sirisha Gomes Estimated Date of Delivery: 07/09/24 Designated Support People: Beau (), Bertin would also like her 8 year old daughter Manda to be present as her second visitor Labor Plan: Bertin is hoping for an unmedicated vaginal at either [facility] (if an IOL) or [place] (if spontaneous labor). She plans to breastfeed baby boy Shlomo. She is interested in [facility] if possible. Primary Trigger Themes: Control or loss of control Primary Triggers: Hospital environment Pain medication tradeoffs Labor & Strategies: Bertin is hoping for a low intervention unmedicated . She is interested in using the tub or shower as well as nitrous oxide. She has had epidural with her other 3 children's births. She made it to 6-7 cm with her first, but then needed an epidural due to pitocin augmentation. Her epidurals have all provided excellent pain relief, but she has experienced pain during placement. Bertin does have a history of a seizure disorder which she reports has been stable on medication. She can sense when a seizure is about to happen and states that cold help (ice packs, cold wash cloths etc.). Other Patient Preferences: Bertin is interested in [facility] and care with CNMs if possible. She would like delayed cord clamping of 1-2 minutes if possible. documented in this encounter [facility] 06-03-2024 Progress note Formatting of t his note might be different from the original. DM-Pt doing well. Denies vaginal Bleeding, Leaking fluid, or regular Contractions. Pt reports good movement Physical Exam: Gen: female in no apparent distress Abd: soft, Gravid. Non tender to palpation. See flow sheet @ 34.6 weeks Assessment & Plan High-risk in third trimester Orders: URINE OB DIP B/O Discussed IOL 39 weeks reviewed- would like to deliver in [place] - preference only - if active labor- [place] - kick counts reviewed - lovenox Post Supervision of other high risk pregnancies, second trimester Short interval between pregnancies affecting , antepartum Abnormal thyroid blood test Seizure disorder (HCC) Cyndee Carr MD [facility] 06-03-2024 Miscellaneous Notes DM-Pt doing well. Denies vaginal Bleeding, Leaking fluid, or regular Contractions. Pt reports good movement Physical Exam: Gen: female in no apparent distress Abd: soft, Gravid. Non tender to palpation. See flow sheet @ 34.6 weeks Assessment & Plan High-risk in third trimester Orders: URINE OB DIP B/O Discussed IOL 39 weeks reviewed- would like to deliver in [place] - preference only - if active labor- [place] - kick counts reviewed - lovenox Post Supervision of other high risk pregnancies, second trimester Short interval between pregnancies affecting , antepartum Abnormal thyroid blood test Seizure disorder (HCC) Cyndee Carr MD documented in this encounter [facility] 06-03-2024 Instructions Sammi Orozco MA - 06/03/2024 3:16 PM EST SEQUENTIAL SCREENINGS The [facility] offers sequential screenings for women who are interested in screenings for chromosomal abnormalities and certain defects during a . The sequential screen combines ultrasound and blood tests to determine the risk of chromosomal abnormalities, including Down's Syndrome (Trisomy 21) and Trisomy 18, as well as open neural tube defects including spina bifida. Ultrasound examination is performed between 11 weeks and 13 weeks gestational age. Blood tests are drawn after the ultrasound and again later in the between 15 and 21 weeks gestational age. Please let your physician know if you are interested in this testing. It will require an appointment with our mining technician. This is not an ultrasound performed by a physician in our office during a routine visit. SIGNS AND SYMPTOMS OF LABOR 1. Contractions every 10 minutes or more often 2. Clear, pink, or brownish fluid (water) leaking from vagina 3. Feeling that baby is pushing down, pressure 4. Low, dull backache 5. Cramps that feel like a period 6. Cramps with or without diarrhea If you notice any of the above symptoms, contact our office at [phone] and ask to speak with a nurse. After hours, you can call doctors registry at [phone] OR call [facility] at [phone] and ask to have the doctor java application engineer paged. If you consider this an emergency, dial 02-13-0 or go to your nearest emergency department. NEED HELP? Are you dealing with a violent or abusive relationship? Are you a victim of rape or sexual assult? Call [facility] ([place]) 24 hour Crisis Hotline: 520.211.8197 or 080-002-8440. MANUAL Your Guide to a Healthy manual is now on-line. Visit [email or web address] to download your free copy documented in this encounter [facility] 05-27-2024 Note HNO ID: [id number] Author: ROWAN MACIAS MA Service: ? Author Type: Air Carrier Inspector Type: Progress Notes Filed: 05/27/2024 09:19 Note Text: Provider Simona Yanez MD present in office when vaccine was given. Rowan Macias MA [facility] 05-20-2024 Note Indication Evaluation of growth history of seizures Impression REMOTE READ - Single, live, intrauterine . - The biometry is consistent with the assigned gestational dating. - The EFW is 2123 g, at the 49%. AC is at the 72%. - The amniotic fluid volume is normal amount with an MVP of 5.6 cm and an PATRICIA of 15.9 cm. - The placenta is posterior, fundal. - No malformations visualized on a limited survey as detailed below. Recommendations Additional follow-up as clinically indicated. Maternal Assessment Height 165 cm Height (ft) 5 ft Height (in) 5 in Physical Exam Initial weight (lb) 145 lb Initial BMI 24.13 kg/m Maternal assessment other: 9 Para 3 Method Transabdominal ultrasound examination Rosas . Number of fetuses: 1 Dating GA by prior assessment 32 w + 6 d JANE by prior assessment: 07/09/2024 Ultrasound examination on: 05/20/2024 GA by U/S based upon: AC, BPD, Femur, HC GA by U/S 33 w + 0 d JANE by U/S: 07/08/2024 Assigned: based on stated JANE, selected on 05/20/2024 Assigned GA 32 w + 6 d Assigned JANE: 07/09/2024 General Evaluation Cardiac activity present. FHR 142 bpm. movements: present. Presentation: cephalic Placenta: Placental site: posterior, fundal Umbilical cord: Cord vessels: 3 vessel cord Amniotic fluid: Amount of AF: normal amount. MVP 5.6 cm. PATRICIA 15.9 cm. Q1 3.5 cm, Q2 5.6 cm, Q3 2.6 cm, Q4 4.2 cm Growth Overview Exam date GA BPD (mm) HC (mm) AC (mm) FL (mm) HL (mm) EFW (g) 02/16/2024 19w 3d 44.8 56% 166.7 46% 155 83% 30.8 69% 28.9 51% 327 77% 05/20/2024 32w 6d 83.7 68% 301.4 43% 296 72% 62.1 42% 2123 49% Biometry Standard BPD 83.7 mm 33w 5d 68% Hadlock OFD 105.7 mm 31w 2d 32% Nicolaides HC 301.4 mm 32w 4d 43% Crystal AC 296.0 mm 33w 4d 72% Hadlock Femur 62.1 mm 32w 0d 42% Crystal EFW 2,123 g 32w 6d 49% Hadlock EFW (lb) 4 lb EFW (oz) 11 oz EFW by: Hadlock (HC-AC-FL) Extended Color Checker 6.1 mm Extremities / Bony Struc FL / HC 0.21 Other Structures FHR 142 bpm Anatomy Lateral ventricles: normal Cavum septi pellucidi: normal Cerebellum: normal Cisterna magna: normal 4-chamber view: normal RVOT view: normal LVOT view: normal 3-vessel view: normal Heart / Thorax Situs: situs solitus (normal) Diaphragm: normal Stomach: normal Kidneys: normal Bladder: normal sex: male Wants to know sex: yes Performed By: Liliya Covarrubias RDMS, RVT Read By: Kimber Johansen M.D. [facility] 05-20-2024 Progress note Formatting of t his note might be different from the original. KJ - VB No. LOF No. CTXS Yes - irregular. Movement: present. Other c/o: Feels that her heart races at times. Denies CP. Also she has restless legs at times. Medication list reviewed. Physical Exam See Flow Sheet Gen: no accute distress, well appearing A/P 32w6d Estimated Date of Delivery: 07/09/24 Seizure disorder - continue meds RSV vaccine today Heart racing - advised to stay hydrated. If becomes more frequent, develops SOB or CP should contact the office. Restless legs - start magnesium supplement. PTL precautions reviewed, Kick counts reviewed. Simona Yanez MD [facility] 05-20-2024 Miscellaneous Notes KJ - VB No. LOF No. CTXS Yes - irregular. Movement: present. Other c/o: Feels that her heart races at times. Denies CP. Also she has restless legs at times. Medication list reviewed. Physical Exam See Flow Sheet Gen: no accute distress, well appearing A/P 32w6d Estimated Date of Delivery: 07/09/24 Seizure disorder - continue meds RSV vaccine today Heart racing - advised to stay hydrated. If becomes more frequent, develops SOB or CP should contact the office. Restless legs - start magnesium supplement. PTL precautions reviewed, Kick counts reviewed. Simona Yanez MD documented in this encounter [facility] 05-20-2024 Instructions Rowan Macias MA - 05/20/2024 10:08 AM EST SEQUENTIAL SCREENINGS The [facility] offers sequential screenings for women who are interested in screenings for chromosomal abnormalities and certain defects during a . The sequential screen combines ultrasound and blood tests to determine the risk of chromosomal abnormalities, including Down's Syndrome (Trisomy 21) and Trisomy 18, as well as open neural tube defects including spina bifida. Ultrasound examination is performed between 11 weeks and 13 weeks gestational age. Blood tests are drawn after the ultrasound and again later in the between 15 and 21 weeks gestational age. Please let your physician know if you are interested in this testing. It will require an appointment with our mining technician. This is not an ultrasound performed by a physician in our office during a routine visit. SIGNS AND SYMPTOMS OF LABOR 1. Contractions every 10 minutes or more often 2. Clear, pink, or brownish fluid (water) leaking from vagina 3. Feeling that baby is pushing down, pressure 4. Low, dull backache 5. Cramps that feel like a period 6. Cramps with or without diarrhea If you notice any of the above symptoms, contact our office at [phone] and ask to speak with a nurse. After hours, you can call doctors registry at [phone] OR call [facility] at [phone] and ask to have the doctor java application engineer paged. If you consider this an emergency, dial 4-1-4 or go to your nearest emergency department. NEED HELP? Are you dealing with a violent or abusive relationship? Are you a victim of rape or sexual assult? Call [facility] ([place]) 24 hour Crisis Hotline: 478.675.3062 or 728-584-0031. MANUAL Your Guide to a Healthy manual is now on-line. Visit [email or web address] to download your free copy documented in this encounter [facility] 05-09-2024 Telephone encounter Note Belgica Musa APRN.CNM [facility] 05-09-2024 Miscellaneous Notes Belgica Musa APRN.CNM FYI. See below. Liliya Soriano RN Patient called to cancel today's appt. Declined to reschedule said she would be seen at next appt 05/20 documented in this encounter [facility] 05-09-2024 Telephone encounter Note FYI. See below. Liliya Soriano RN [facility] 05-09-2024 Telephone encounter Note Patient called to cancel today's appt. Declined to reschedule said she would be seen at next appt 05/20 [facility] 04-27-2024 Telephone encounter Note 3rd risk assessment form submitted 04/27/2024. Sirisha Fields RN [facility] 04-27-2024 Miscellaneous Notes 3rd risk assessment form submitted 04/27/2024. Sirisha Fields RN documented in this encounter [facility] 04-26-2024 Progress note Formatting of t his note might be different from the original. KJ - VB No. LOF No. CTXS No. Movement: present. Other c/o: No. Medication list reviewed. Physical Exam See Flow Sheet Gen: no accute distress, well appearing Abd: soft, nontender, gravid A/P 29w3d Estimated Date of Delivery: 07/09/24 Labs: 28 week labs Tdap & flu vaccines today Seizure disorder - continue meds Growth US scheduled PTL precautions reviewed, Kick counts reviewed. Simona Yanez MD [facility] 04-26-2024 Miscellaneous Notes KJ - VB No. LOF No. CTXS No. Movement: present. Other c/o: No. Medication list reviewed. Physical Exam See Flow Sheet Gen: no accute distress, well appearing Abd: soft, nontender, gravid A/P 29w3d Estimated Date of Delivery: 07/09/24 Labs: 28 week labs Tdap & flu vaccines today Seizure disorder - continue meds Growth scheduled PTL precautions reviewed, Kick counts reviewed. Simona Yanez MD documented in this encounter [facility] 04-26-2024 Note HNO ID: [id number] Author: ROWAN MACIAS MA Service: ? Author Type: Air Carrier Inspector Type: Progress Notes Filed: 04/26/2024 16:36 Note Text: Patient identified by name and date of . Bertin Mcduffie presents today for a vaccination of Tdap. Patient denies an allergy to latex: yes Patient denies a severe (life-threatening) allergy to a previous dose of Tdap, DTP, DTaP, DT or Td vaccine. Yes Patient denies history of epilepsy or neurological problems: No, OK per provider Patient is afebrile and denies being moderately or severely ill: Yes Patient denies history of Guillain-[place] Syndrome (a severe paralytic illness): Yes Tdap Adacel injection was given without incident. See immunizations for details of immunizations administered today. VIS sheet provided: Yes Provider Simona Yanez MD was present in office at time of injection. Rowan Macias MA [facility] 04-26-2024 History of Presen t illness Narrative Patient identified by name and date of . Bertin Mcduffie presents today for a vaccination of Tdap. Patient denies an allergy to latex: yes Patient denies a severe (life-threatening) allergy to a previous dose of Tdap, DTP, DTaP, DT or Td vaccine. Yes Patient denies history of epilepsy or neurological problems: No, OK per provider Patient is afebrile and denies being moderately or severely ill: Yes Patient denies history of Guillain-[place] Syndrome (a severe paralytic illness): Yes Tdap Adacel injection was given without incident. See immunizations for details of immunizations administered today. VIS sheet provided: Yes Provider Simona Yanez MD was present in office at time of injection. Rowan Macias MA documented in this encounter [facility] 04-26-2024 Instructions Rowan Macias MA - 04/26/2024 3:10 PM EST SEQUENTIAL SCREENINGS The [facility] offers sequential screenings for women who are interested in screenings for chromosomal abnormalities and certain defects during a . The sequential screen combines ultrasound and blood tests to determine the risk of chromosomal abnormalities, including Down's Syndrome (Trisomy 21) and Trisomy 18, as well as open neural tube defects including spina bifida. Ultrasound examination is performed between 11 weeks and 13 weeks gestational age. Blood tests are drawn after the ultrasound and again later in the between 15 and 21 weeks gestational age. Please let your physician know if you are interested in this testing. It will require an appointment with our mining technician. This is not an ultrasound performed by a physician in our office during a routine visit. SIGNS AND SYMPTOMS OF LABOR 1. Contractions every 10 minutes or more often 2. Clear, pink, or brownish fluid (water) leaking from vagina 3. Feeling that baby is pushing down, pressure 4. Low, dull backache 5. Cramps that feel like a period 6. Cramps with or without diarrhea If you notice any of the above symptoms, contact our office at [phone] and ask to speak with a nurse. After hours, you can call doctors registry at [phone] OR call [facility] at [phone] and ask to have the doctor java application engineer paged. If you consider this an emergency, dial [phone]- or go to your nearest emergency department. NEED HELP? Are you dealing with a violent or abusive relationship? Are you a victim of rape or sexual assult? Call [facility] ([place]) 24 hour Crisis Hotline: 494.862.1872 or 549-788-9897. MANUAL Your Guide to a Healthy manual is now on-line. Visit [email or web address] to download your free copy documented in this encounter [facility] 04-15-2024 Progress note Formatting of t his note might be different from the original. KJ - VB No. LOF No. CTXS Yes - irregular. Movement: present. Other c/o: No. Medication list reviewed. Physical Exam See Flow Sheet Gen: no accute distress, well appearing Abd: soft, nontender, gravid A/P 27w6d Estimated Date of Delivery: 07/09/24 Labs: needs 28 week labs Plans for Tdap & flu vaccines at next visit Declines LARC Seizure disorder - continue lamictal ER and folic acid PTL precautions reviewed, Kick counts reviewed. Simona Yanez MD [facility] 04-15-2024 Miscellaneous Notes KJ - VB No. LOF No. CTXS Yes - irregular. Movement: present. Other c/o: No. Medication list reviewed. Physical Exam See Flow Sheet Gen: no accute distress, well appearing Abd: soft, nontender, gravid A/P 27w6d Estimated Date of Delivery: 07/09/24 Labs: needs 28 week labs Plans for Tdap & flu vaccines at next visit Declines LARC Seizure disorder - continue lamictal ER and folic acid PTL precautions reviewed, Kick counts reviewed. Simona Yanez MD documented in this encounter [facility] 04-15-2024 Instructions Virginia Hart MA - 04/15/2024 2:39 PM EDT SEQUENTIAL SCREENINGS The [facility] offers sequential screenings for women who are interested in screenings for chromosomal abnormalities and certain defects during a . The sequential screen combines ultrasound and blood tests to determine the risk of chromosomal abnormalities, including Down's Syndrome (Trisomy 21) and Trisomy 18, as well as open neural tube defects including spina bifida. Ultrasound examination is performed between 11 weeks and 13 weeks gestational age. Blood tests are drawn after the ultrasound and again later in the between 15 and 21 weeks gestational age. Please let your physician know if you are interested in this testing. It will require an appointment with our mining technician. This is not an ultrasound performed by a physician in our office during a routine visit. SIGNS AND SYMPTOMS OF LABOR 1. Contractions every 10 minutes or more often 2. Clear, pink, or brownish fluid (water) leaking from vagina 3. Feeling that baby is pushing down, pressure 4. Low, dull backache 5. Cramps that feel like a period 6. Cramps with or without diarrhea If you notice any of the above symptoms, contact our office at [phone] and ask to speak with a nurse. After hours, you can call doctors registry at [phone] OR call [facility] at [phone] and ask to have the doctor java application engineer paged. If you consider this an emergency, dial 91-7 or go to your nearest emergency department. NEED HELP? Are you dealing with a violent or abusive relationship? Are you a victim of rape or sexual assult? Call [facility] ([place]) 24 hour Crisis Hotline: 534.301.1635 or 344-641-4841. MANUAL Your Guide to a Healthy manual is now on-line. Visit [email or web address] to download your free copy documented in this encounter [facility] 04-01-2024 Progress note Formatting of t his note is different from the original. - JOSE-S: Bertin Mcduffie is a 28 year old female who presents at 25w6d with JANE:06/30/2024, by Last Menstrual Period for a routine visit. Denies headache, visual changes, chest pain, shortness of breath, vaginal bleeding, leakage of fluid, or dysuria. Feeling well, no complaints. O: See flow sheet Gen: No apparent distress Abd: Gravid, nontender ASSESSMENT/PLAN: 1. Supervision of other high risk pregnancies, second trimester -Continue ASA 81mg PO once daily -Growth US at 32 wk -JANE updated 2. 25 weeks gestation of 3. Short interval between pregnancies affecting , antepartum 4. History of gestational diabetes in prior , currently 5. Seizure disorder (HCC) - ICD9: 345.90, ICD10: G40.909 -Continue 4 mg Folic acid -Lamotrigine level checked monthly, managed by . Recommend to get level tested. -Asked about water labor and . Reviewed potential risks and don't recommend. 6. Factor V Leiden (HCC) 7. depression 8. Calculus of gallbladder without cholecystitis without obstruction -No further complaints at this time. Reviewed follow up if pain returns or further concerns. - PTL precautions reviewed and when to call - RTO in 4 weeks Belgica Thomas APRN.CNM [facility] 04-01-2024 Miscellaneous Notes - JOSE-S: Bertin Mcduffie is a 28 year old female who presents at 25w6d with JANE:06/30/2024, by Last Menstrual Period for a routine visit. Denies headache, visual changes, chest pain, shortness of breath, vaginal bleeding, leakage of fluid, or dysuria. Feeling well, no complaints. O: See flow sheet Gen: No apparent distress Abd: Gravid, nontender ASSESSMENT/PLAN: 1. Supervision of other high risk pregnancies, second trimester -Continue ASA 81mg PO once daily -Growth US at 32 wk -JANE updated 2. 25 weeks gestation of 3. Short interval between pregnancies affecting , antepartum 4. History of gestational diabetes in prior , currently 5. Seizure disorder (HCC) - ICD9: 345.90, ICD10: G40.909 -Continue 4 mg Folic acid -Lamotrigine level checked monthly, managed by . Recommend to get level tested. -Asked about water labor and . Reviewed potential risks and don't recommend. 6. Factor V Leiden (HCC) 7. depression 8. Calculus of gallbladder without cholecystitis without obstruction -No further complaints at this time. Reviewed follow up if pain returns or further concerns. - PTL precautions reviewed and when to call - RTO in 4 weeks Belgica Thomas APRN.CNM documented in this encounter [facility] 04-01-2024 Instructions Charisse Zamora LPN - 04/01/2024 2:40 PM EDT SEQUENTIAL SCREENINGS The [facility] offers sequential screenings for women who are interested in screenings for chromosomal abnormalities and certain defects during a . The sequential screen combines ultrasound and blood tests to determine the risk of chromosomal abnormalities, including Down's Syndrome (Trisomy 21) and Trisomy 18, as well as open neural tube defects including spina bifida. Ultrasound examination is performed between 11 weeks and 13 weeks gestational age. Blood tests are drawn after the ultrasound and again later in the between 15 and 21 weeks gestational age. Please let your physician know if you are interested in this testing. It will require an appointment with our mining technician. This is not an ultrasound performed by a physician in our office during a routine visit. SIGNS AND SYMPTOMS OF LABOR 1. Contractions every 10 minutes or more often 2. Clear, pink, or brownish fluid (water) leaking from vagina 3. Feeling that baby is pushing down, pressure 4. Low, dull backache 5. Cramps that feel like a period 6. Cramps with or without diarrhea If you notice any of the above symptoms, contact our office at [phone] and ask to speak with a nurse. After hours, you can call doctors registry at [phone] OR call [facility] at [phone] and ask to have the doctor java application engineer paged. If you consider this an emergency, dial or go to your nearest emergency department. NEED HELP? Are you dealing with a violent or abusive relationship? Are you a victim of rape or sexual assult? Call [facility] ([place]) 24 hour Crisis Hotline: 613.613.8313 or 744-042-3417. MANUAL Your Guide to a Healthy manual is now on-line. Visit [email or web address] to download your free copy documented in this encounter [facility] 03-14-2024 History of Presen t illness Narrative [facility] Patient Name: Bertin Mcduffie Date of : 1995 ESTABLISHED EPILEPSY CLINIC NOTE 03/14/2024 11:00 AM Reason for Visit: Follow Up (No changes. ) Clinical Summary: Ms. Mcduffie is a 28 year old right-handed female seen in [facility]. 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 During admission, her Lamotrigine was held at outset for provocation. Baseline EEG displayed typical awake/sleep structures. Interictal EEG showed right parietal-occipital (O2>P8) epileptiform discharges. No events and/or seizures were captured. Her observation was cut short due to family emergency. Prior to leaving; she resumed her 300 mg of daily Lamotrigine unchanged. Standard precautions were reiterated before her discharge home 09/08/23 in stable condition with as convenient follow-up instructions via Dr. Terrazas for ASM optimization. 11/03/2023 - 11/05/2023 - EMU - She was admitted to the epilepsy monitoring unit from 11/03/2023-11/05/2023 for diagnosis of events. Antiseizure medication was discontinued upon admission. No typical episodes were captured during this two-day video EEG, resulting in an inconclusive evaluation. The patient requested early discharge to return home with the children. EEG showed an awake background of 10-11 Hz posterior dominant rhythm and observed normal sleep patterns. No interictal findings were identified. Prior to discharge, Lamotrigine ER 300 mg daily was restarted without changes. Seizure safety precautions were reiterated, and she was discharged home in stable condition. She will follow up with Dr. Terrazas in 6 months after discharge. She will check Lamotrigine levels monthly during and start Folic acid 4 mg once daily. She denied seizures. She is taking LTG ER 350 in the morning. However, she is now 23 weeks and has morning sickness and has been unable to keep her medications down. She denied any loretta TB. She reports blisters on her tongue but no blood. No UI. Total # of Current Anti-seizure Medications: 1 Side Effects to Current Anti-seizure Medications: none Seizure Frequency at First Visit: 1 per year Longest Seizure-free Interval: 2 years Number of seizure types: 1 Hx of generalized tonic-clonic seizures: No Tongue bite: No Urine or Bowel Incontinence: No Triggers: stress, missing medication Postictal Deficits: No Memory complaints: none Status Epilepticus or clusters: No Postictal Agitation: No Significant Injuries from Seizures: concussion at age 18 years Seizure-related driving accidents: No Driving: No Lives Alone: No ED Visits in Last 3 Months: No Hospitalizations in Last 3 Months: No Highest Level of Education: High school graduate (includes GED) CURRENT OUTPATIENT ANTISEIZURE MEDICATIONS (as of the start of the encounter) lamoTRIgine ER (LAMICTAL XR) 50 mg 24 hr tablet Take 1 tablet by mouth once daily. Take with the 300 mg tabelt. Total dose = 350 mg/day. lamoTRIgine ER (LAMICTAL XR) 300 mg 24 hr tablet Take 1 tablet by mouth every morning. Prior Anti-seizure Therapies: Trial Adequacy: Max Daily Dose Achieved: Side Effects: Effectiveness: Comments: Ethosuximide Lamotrigine ER/XR Levetiracetam Phenobarbital Comorbidities: Minor: Anxiety, Depression Episode Description: SEIZURE TYPE 1: seizure Onset: 17 year old Aura: yes nausea, hot/cold feeling, dizziness, stomach turning, and vision becomes hazy. She cannot hear and her vision will turn white before passing out Description: Her has witnessed one of them. She will look like a zombie staring. She will fall and is motionless. No convulsion. She is unresponsive when stimulated. It will last 5-10 minutes. She has no recall afterward. No TB or UI. Loss of awareness: Duration: Frequency: Last occurred: yes longer than 10 minutes Kathy 27 2023 Patient Entered Data: EPILEPSY SCORE 01/20/2024 7:46 PM 09/12/2023 10:47 PM 09/12/2023 10:38 PM First answer obtained - 09/16/2022 11:07 AM PHQ-9 SCORE 18 [Moderately Severe Depression] - 23 [Severe Depression] 20 [Severe Depression] SARMAD 2 SCORE - - - - SARMAD 7 SCORE - 18 [Severe Anxiety Disorder] - - QOLIE-10 SCORE (0=worst; 100=best QoL - higher scores represent better function) - - - - LSSS SCORE (0- no seizures 100- most severe possible seizures) - - - - C-SSRS SCREEN - - - - On average, how many hours of sleep do you get in a 24-hour period? - - - - PROMIS Sleep Disturbance T-SCORE - - - - Have you been diagnosed with Sleep Apnea? - - - - VITAL SIGNS: BP 90/64 Pulse 78 Ht 163.8 cm (5' 4.5) Wt 72.3 kg (159 lb 4.5 oz) LMP 09/24/2023 (Exact Date) SpO2 100% BMI 26.92 kg/m IMPRESSION: 27 year old woman presents with recurrent events of staring preceded by an aura. No history of convulsions. History is suggestive of focal epilepsy. Prior records of MRI brain show it is normal. Exam is normal. She had an EEG in [address] with unknown results. She had an episode on 03/11/23 after missing two days of medication. She continues to have seizures 1-2 times per year despite compliance. She has depression and anxiety without SI. No episodes in sleep. No memory issues. Discussed EMU admission and would like to pursue it in 2-3 months when she is able to leave her new born at home with someone. She is not driving after last seizure on 03/11/23. Interval Impression: She denied seizures. She is taking LTG ER 350 in the morning. However, she is now 23 weeks and has morning sickness and has been unable to keep her medications down. She denied any loretta TB. She reports blisters on her tongue but no blood. No UI. The patient's compliance with therapy has been: Excellent PLAN: - Change time of administration of LTG ER 350 mg from morning to evening to avoid morning sickness; can switch back to morning once sickness resolves - Check LTG level after one week of switching to evening administration; then check LTG on Apr 21, May 21 and Jun 21; due date on 07/09/24 - She uses MyChart so will communicate any changes on MyChart - She will let us know if she has any seizures - Otherwise will see her after delivery in Jul or August 2024 Data reviewed as above including: electronic medical record Testing Ordered anticonvulsant level Education The following issues were discussed with the patient on this visit and written instructions provided as below- Seizure precautions and safety, seizure first aide, when to seek emergency care. Counseling was provided to the patient that missed medications, addition of some new medications, use of alcohol or other substances, and sleep deprivation can lower the seizure threshold. I discussed the risk of depression and psychological comorbidities in patients with epilepsy and when to seek help as well as the black box warning of all antiepileptic medications which can increase risk for suicidality. Women's health issues were addressed this visit- Patient was advised to take folic acid daily. Importance of contraception and potential teratogenicity of antiepileptic medications was discussed. Interaction of her medication with OCP was addressed. Further information regarding and contraception for women with epilepsy can be found at the [facility]. Patient was given my clinic contact information. It is reasonable for the patient to continue driving based on good compliance with antiseizure medication and current seizure control. Medical Management Continue current medications. Prescriptions sent to pharmacy. The possibility of serious and adverse reactions were discussed in detail as well as proper use of medication. I discussed that not taking this medication as directed could worsen seizures and can be dangerous. I discussed the risks, benefits and alternatives of the medical plan with the patient. Questions were answered. The patient agreed with the plan as discussed. FOLLOW-UP: Return in about 5 months (around 08/13/2024). I spent a total of 15 minutes on the date of the service which included: preparing to see the patient [id number] patient care completing clinical documentation obtaining and/or reviewing separately obtained history counseling and educating the patient/family/caregiver ordering medications, tests, or procedures communicating results to the patient/family/caregiver Oz Terrazas MD cc: Primary Care Physician: Carlos Bird, [id number] [facility] [id number] Referring: Patient: Ms. Bertin Mcduffie [id number] [facility] [address] documented in this encounter [facility] 03-14-2024 Note HNO ID: [id number] Author: OZ TERRAZAS MD Service: ? Author Type: Physician Type: Progress Notes Filed: 03/14/2024 11:16 Note Text: [facility] Patient Name: Bertin Mcduffie Date of : 1995 ESTABLISHED EPILEPSY CLINIC NOTE 03/14/2024 11:00 AM Reason for Visit: Follow Up (No changes. ) Clinical Summary: Ms. Mcduffie is a 28 year old right-handed female seen in [facility]. 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 During admission, her Lamotrigine was held at outset for provocation. Baseline EEG displayed typical awake/sleep structures. Interictal EEG showed right parietal-occipital (O2>P8) epileptiform discharges. No events and/or seizures were captured. Her observation was cut short due to family emergency. Prior to leaving; she resumed her 300 mg of daily Lamotrigine unchanged. Standard precautions were reiterated before her discharge home 09/08/23 in stable condition with as convenient follow-up instructions via Dr. Terrazas for ASM optimization. 11/03/2023 - 11/05/2023 - EMU - She was admitted to the epilepsy monitoring unit from 11/03/2023-11/05/2023 for diagnosis of events. Antiseizure medication was discontinued upon admission. No typical episodes were captured during this two-day video EEG, resulting in an inconclusive evaluation. The patient requested early discharge to return home with the children. EEG showed an awake background of 10-11 Hz posterior dominant rhythm and observed normal sleep patterns. No interictal findings were identified. Prior to discharge, Lamotrigine ER 300 mg daily was restarted without changes. Seizure safety precautions were reiterated, and she was discharged home in stable condition. She will follow up with Dr. Terrazas in 6 months after discharge. She will check Lamotrigine levels monthly during and start Folic acid 4 mg once daily. She denied seizures. She is taking LTG ER 350 in the morning. However, she is now 23 weeks and has morning sickness and has been unable to keep her medications down. She denied any loretta TB. She reports blisters on her tongue but no blood. No UI. Total # of Current Anti-seizure Medications: 1 Side Effects to Current Anti-seizure Medications: none Seizure Frequency at First Visit: 1 per year Longest Seizure-free Interval: 2 years Number of seizure types: 1 Hx of generalized tonic-clonic seizures: No Tongue bite: No Urine or Bowel Incontinence: No Triggers: stress, missing medication Postictal Deficits: No Memory complaints: none Status Epilepticus or clusters: No Postictal Agitation: No Significant Injuries from Seizures: concussion at age 18 years Seizure-related driving accidents: No Driving: No Lives Alone: No ED Visits in Last 3 Months: No Hospitalizations in Last 3 Months: No Highest Level of Education: High school graduate (includes GED) CURRENT OUTPATIENT ANTISEIZURE MEDICATIONS (as of the start of the encounter) lamoTRIgine ER (LAMICTAL XR) 50 mg 24 hr tablet Take 1 tablet by mouth once daily. Take with the 300 mg tabelt. Total dose = 350 mg/day. lamoTRIgine ER (LAMICTAL XR) 300 mg 24 hr tablet Take 1 tablet by mouth every morning. Prior Anti-seizure Therapies: Trial Adequacy: Max Daily Dose Achieved: Side Effects: Effectiveness: Comments: Ethosuximide Lamotrigine ER/XR Levetiracetam Phenobarbital Comorbidities: Minor: Anxiety, Depression Episode Description: SEIZURE TYPE 1: seizure Onset: 17 year old Aura: yes nausea, hot/cold feeling, dizziness, stomach turning, and vision becomes hazy. She cannot hear and her vision will turn white before passing out Description: Her has witnessed one of them. She will look like a zombie staring. She will fall and is motionless. No convulsion. She is unresponsive when stimulated. It will last 5-10 minutes. She has no recall afterward. No TB or UI. Loss of awareness: Duration: Frequency: Last occurred: yes longer than 10 minutes March 11 2023 Patient Entered Data: EPILEPSY SCORE 01/20/2024 7:46 PM 09/12/2023 10:47 PM 09/12/2023 10:38 PM First answer obtained - 09/16/2022 11:07 AM PHQ-9 SCORE 18 [Moderately Severe Depression] - 23 [Severe Depression] 20 [Severe Depression] SARMAD 2 SCORE - - - - SARMAD 7 SCORE - 18 [Severe Anxiety Disorder] - - QOLIE-10 SCORE (0=worst; 100=best QoL - higher scores represent better function) - - - - LSSS SCORE (0- no seizures 100- most severe possible seizures) - - - - C-SSRS SCREEN - - - - On average, how many hours of sleep do you get in a 24-hour period? - - - - PROMIS Sle (more content not included)... [facility] 03-04-2024 Progress note Formatting of t his note might be different from the original. S: Bertin Mcduffie is a 28 year old female who presents at 06/30/2024, by Last Menstrual Period for a routine visit. Denies headache, visual changes, chest pain, shortness of breath, vaginal bleeding, or dysuria. Feeling well, no complaints. Good movement. Vomiting better but still some nausea. Dizziness has improved. Mayela also helped Thinks she might be leaking since yesterday. Also feels like she has a vaginal cut. O: See flow sheet Gen: No apparent distress Abd: Gravid, nontender Negative pooling, Nitrazine and fern Positive yeast ASSESSMENT/PLAN: 1. Supervision of other high risk pregnancies, second trimester - ICD9: V23.89, ICD10: O09.892 (primary diagnosis) 2. Short interval between pregnancies affecting , antepartum - ICD9: V23.89, ICD10: O09.899 3. Factor V Leiden (HCC) - ICD9: 289.81, ICD10: D68.51 4. History of gestational diabetes in prior , currently - ICD9: V23.49, ICD10: O09.299, Z86.32 5. Vaginal yeast infection - ICD9: 112.1, ICD10: B37.31 diflcuan Sirisha Gomes MD [facility] 03-04-2024 Miscellaneous Notes S: Bertin Mcduffie is a 28 year old female who presents at 06/30/2024, by Last Menstrual Period for a routine visit. Denies headache, visual changes, chest pain, shortness of breath, vaginal bleeding, or dysuria. Feeling well, no complaints. Good movement. Vomiting better but still some nausea. Dizziness has improved. Mayela also helped Thinks she might be leaking since yesterday. Also feels like she has a vaginal cut. O: See flow sheet Gen: No apparent distress Abd: Gravid, nontender Negative pooling, Nitrazine and fern Positive yeast ASSESSMENT/PLAN: 1. Supervision of other high risk pregnancies, second trimester - ICD9: V23.89, ICD10: O09.892 (primary diagnosis) 2. Short interval between pregnancies affecting , antepartum - ICD9: V23.89, ICD10: O09.899 3. Factor V Leiden (HCC) - ICD9: 289.81, ICD10: D68.51 4. History of gestational diabetes in prior , currently - ICD9: V23.49, ICD10: O09.299, Z86.32 5. Vaginal yeast infection - ICD9: 112.1, ICD10: B37.31 liatuan Sirisha Gomes MD documented in this encounter [facility] 03-04-2024 Instructions Frederic Green MA - 03/04/2024 1:45 PM EDT SEQUENTIAL SCREENINGS The [facility] offers sequential screenings for women who are interested in screenings for chromosomal abnormalities and certain defects during a . The sequential screen combines ultrasound and blood tests to determine the risk of chromosomal abnormalities, including Down's Syndrome (Trisomy 21) and Trisomy 18, as well as open neural tube defects including spina bifida. Ultrasound examination is performed between 11 weeks and 13 weeks gestational age. Blood tests are drawn after the ultrasound and again later in the between 15 and 21 weeks gestational age. Please let your physician know if you are interested in this testing. It will require an appointment with our mining technician. This is not an ultrasound performed by a physician in our office during a routine visit. SIGNS AND SYMPTOMS OF LABOR 1. Contractions every 10 minutes or more often 2. Clear, pink, or brownish fluid (water) leaking from vagina 3. Feeling that baby is pushing down, pressure 4. Low, dull backache 5. Cramps that feel like a period 6. Cramps with or without diarrhea If you notice any of the above symptoms, contact our office at [phone] and ask to speak with a nurse. After hours, you can call doctors registry at [phone] OR call [facility] at [phone] and ask to have the doctor java application engineer paged. If you consider this an emergency, dial 1--2 or go to your nearest emergency department. NEED HELP? Are you dealing with a violent or abusive relationship? Are you a victim of rape or sexual assult? Call [facility] ([place]) 24 hour Crisis Hotline: 214.324.3346 or 622-787-9182. MANUAL Your Guide to a Healthy manual is now on-line. Visit [email or web address] [email or web address] to download your free copy documented in this encounter [facility] 02-22-2024 Note HNO ID: [id number] Author: SIRISHA NELSON RN Service: ? Author Type: Registered Nurse Type: Progress Notes Filed: 02/22/2024 12:22 Note Text: Received outside medical records. Copy given to JOSE to review. Already scanned in [employer]. Sirisha Nelson RN [facility] 02-22-2024 History of Presen t illness Narrative Received outside medical records. Copy given to JOSE to review. Already scanned in [employer]. Sirisha Nelson RN documented in this encounter [facility] 02-17-2024 Telephone encounter Note 2nd risk assessment form submitted 02/17/2024. Sirisha Fields RN [facility] 02-17-2024 Miscellaneous Notes 2nd risk assessment form submitted 02/17/2024. Sirisha Fields RN documented in this encounter [facility] 02-16-2024 Progress note Formatting of t his note might be different from the original. JOSE-S: Bertin Mcduffie is a 28 year old female who presents at 20w5d with JANE:06/30/2024, by Last Menstrual Period for a routine visit. Denies headache, visual changes, chest pain, shortness of breath, vaginal bleeding, leakage of fluid, or dysuria. Feeling well, no complaints. O: See flow sheet Gen: No apparent distress Abd: Gravid, nontender ASSESSMENT/PLAN: 1. Supervision of other high risk pregnancies, second trimester -Continue ASA 81mg PO once daily 2. 20 weeks gestation of 3. Short interval between pregnancies affecting , antepartum 4. History of gestational diabetes in prior , currently 5. Seizure disorder (HCC) - ICD9: 345.90, ICD10: G40.909 -Continue 4 mg Folic acid -Lamotrigine level checked monthly, managed by 6. Factor V Leiden (HCC) 7. depression 8. Calculus of gallbladder without cholecystitis without obstruction -No further complaints at this time. Reviewed follow up if pain returns or further concerns. - PTL precautions reviewed and when to call - RTO in 4 weeks Belgica Thomas APRN.CNM [facility] 02-16-2024 Miscellaneous Notes JOSE-S: Bertin Mcduffie is a 28 year old female who presents at 20w5d with JANE:06/30/2024, by Last Menstrual Period for a routine visit. Denies headache, visual changes, chest pain, shortness of breath, vaginal bleeding, leakage of fluid, or dysuria. Feeling well, no complaints. O: See flow sheet Gen: No apparent distress Abd: Gravid, nontender ASSESSMENT/PLAN: 1. Supervision of other high risk pregnancies, second trimester -Continue ASA 81mg PO once daily 2. 20 weeks gestation of 3. Short interval between pregnancies affecting , antepartum 4. History of gestational diabetes in prior , currently 5. Seizure disorder (HCC) - ICD9: 345.90, ICD10: G40.909 -Continue 4 mg Folic acid -Lamotrigine level checked monthly, managed by 6. Factor V Leiden ([facility]) 7. depression 8. Calculus of gallbladder without cholecystitis without obstruction -No further complaints at this time. Reviewed follow up if pain returns or further concerns. - PTL precautions reviewed and when to call - RTO in 4 weeks Belgica Thomas APRN.CNM documented in this encounter [facility] 02-16-2024 Instructions Sammi Orozco MA - 02/16/2024 2:00 PM EDT SEQUENTIAL SCREENINGS The [facility] offers sequential screenings for women who are interested in screenings for chromosomal abnormalities and certain defects during a . The sequential screen combines ultrasound and blood tests to determine the risk of chromosomal abnormalities, including Down's Syndrome (Trisomy 21) and Trisomy 18, as well as open neural tube defects including spina bifida. Ultrasound examination is performed between 11 weeks and 13 weeks gestational age. Blood tests are drawn after the ultrasound and again later in the between 15 and 21 weeks gestational age. Please let your physician know if you are interested in this testing. It will require an appointment with our mining technician. This is not an ultrasound performed by a physician in our office during a routine visit. SIGNS AND SYMPTOMS OF LABOR 1. Contractions every 10 minutes or more often 2. Clear, pink, or brownish fluid (water) leaking from vagina 3. Feeling that baby is pushing down, pressure 4. Low, dull backache 5. Cramps that feel like a period 6. Cramps with or without diarrhea If you notice any of the above symptoms, contact our office at [phone] and ask to speak with a nurse. After hours, you can call doctors registry at [phone] OR call [facility] at [phone] and ask to have the doctor java application engineer paged. If you consider this an emergency, dial 9--3 or go to your nearest emergency department. NEED HELP? Are you dealing with a violent or abusive relationship? Are you a victim of rape or sexual assult? Call [facility] ([place]) 24 hour Crisis Hotline: 930.665.4772 or 792-942-9229. MANUAL Your Guide to a Healthy manual is now on-line. Visit [email or web address] [email or web address] to download your free copy documented in this encounter [facility] 02-12-2024 Telephone encounter Note Electronic PA completed. Approved Juana Dawson RN [facility] 02-12-2024 Miscellaneous Notes Electronic PA completed. Approved Juana Dawson RN Prior Authorization Needed: Received by: Fax Requested by (pharmacy name): [facility] Phone number: [phone] Name of medication: lamotrigine Strength and dosage: 50 Insurance company name and phone #: cmm Patient ID: [id number] PCN #: BIN#: Group #: Patient of Dr. TERRAZAS documented in this encounter [facility] 02-12-2024 Telephone encounter Note Prior Authorization Needed: Received by: Fax Requested by (pharmacy name): [facility] Phone number: [phone] Name of medication: lamotrigine Strength and dosage: 50 Insurance company name and phone #: cmm Patient ID: [id number] PCN #: BIN#: Group #: Patient of Dr. TERRAZAS [facility] 02-04-2024 History of Presen t illness Narrative Radiology Service Progress Note PATIENT NAME: Bertin Mcduffie DATE OF SERVICE: February 04, 2024 TIME: 11:48 AM PATIENT IDENTITY VERIFICATION COMPLETED USING TWO (2) IDENTIFIERS: Name and Date of confirmed by patient verbally. FALL SCREENING: Has the patient had 2 falls in the last year or 1 fall with injury or currently using an Ambulatory Assistive Device (Walker, Cane, Wheelchair, Crutches, etc.)? No PATIENT GENDER DATA: Female. status: : Yes. Urinalysis hCG results are as follows: Positive status: NO. PATIENT RELEVANT IMPLANT DATA REVIEWED: Not Applicable PATIENT PRESENTS WITH AN IMPLANTABLE OR ATTACHED EPIC TRAINER: No RADIOLOGY DEPARTMENT: Ultrasound PERIPHERAL IV DATA: Not applicable SIGNED BY: Belgica Brown RDMS RVT February 04, 2024 11:48 AM documented in this encounter [facility] 02-04-2024 Note HNO ID: [id number] Author: BELGICA BROWN RDMS Service: ? Author Type: Sample Puller Type: Progress Notes Filed: 02/04/2024 11:49 Note Text: Radiology Service Progress Note PATIENT NAME: Bertin Mcduffie DATE OF SERVICE: February 04, 2024 TIME: 11:48 AM PATIENT IDENTITY VERIFICATION COMPLETED USING TWO (2) IDENTIFIERS: Name and Date of confirmed by patient verbally. FALL SCREENING: Has the patient had 2 falls in the last year or 1 fall with injury or currently using an Ambulatory Assistive Device (Walker, Cane, Wheelchair, Crutches, etc.)? No PATIENT GENDER DATA: Female. status: : Yes. Urinalysis hCG results are as follows: Positive status: NO. PATIENT RELEVANT IMPLANT DATA REVIEWED: Not Applicable PATIENT PRESENTS WITH AN IMPLANTABLE OR ATTACHED EPIC TRAINER: No RADIOLOGY DEPARTMENT: Ultrasound PERIPHERAL IV DATA: Not applicable SIGNED BY: Belgica Brown RDMS RVEllis February 04, 2024 11:48 AM [facility] 02-03-2024 Telephone encounter Note Sent ImmuVent message to patient. Awaiting response. Joceline Diaz PA-C [facility] Work Phone: 02-03-2024 Miscellaneous Notes Sent ADTZ message to patient. Awaiting response. Joceline Diaz PA-C Called patient, no answer Left VMM to return call to the office. Juana Dawson RN Can we please try to reach out to patient again. Joceline Diaz PA-C Called patient, no answer Left VMM to return call to the office Juana Dawson RN Please call patient regarding her LTG dose. Level was 1.6, can we please confirm she is taking LTG XR 300 mg daily. Please confirm how far along patient is in her and if she has had any breakthrough seizure activity. Will need to adjust medication accordingly. Joceline Diaz PA-C documented in this encounter [facility] 02-02-2024 Telephone encounter Note Called patient, no answer Left VMM to return call to the office. Juana Dawson RN [facility] 02-02-2024 Telephone encounter Note Can we please try to reach out to patient again. Joceline Diaz PA-C [facility] 02-01-2024 Note HNO ID: [id number] Author: TE GAO MD Service: ? Author Type: Physician Type: Progress Notes Filed: 02/01/2024 12:07 Note Text: Patient presents with: Abdominal Pain: Weakness, discolored stools x 4 days HPI: Currently 18 weeks ; reported abdominal pain and nausea/vomiting at new OB intake 01/12/24. Feeling worse for 4 days with change in stool color (green). Her daughter is sick with sore throat and multiple family members have had a gastrointestinal illness. Positive symptoms: Fatigue, Headache, Nausea, Vomiting (mostly dry heaves), Diarrhea, Negative symptoms: Cough, Nasal Congestion, Rhinorrhea, Fever, blood in stool, OTC: fluids PAST MEDICAL HISTORY No date: Anemia No date: Borderline personality disorder (HCC) No date: Depression with anxiety No date: Diabetes, gestational No date: Factor V Leiden ([facility]) Comment: Diagnosed 201501/12/2024: History of gestational diabetes in prior , currently No date: depression No date: Seizure ([facility]) 06/15/2012: Seizures ([facility]) 09/08/2023: Seizures ([facility]) Comment: Last seizure 2022, admisssions to [facility] 09/07 aand 11/02 Dr Oz Terrazas PAST SURGICAL HISTORY No date: DANDC, DIAG AND/OR THERAPEUTIC Comment: 2016 and 2021 MEDICATIONS: Current Outpatient Medications Medication Sig aspirin, enteric coated (ECOTRIN LOW STRENGTH) 81 mg EC tablet Take 1 tablet by mouth once daily. sertraline (ZOLOFT) 100 mg tablet Take 1 tablet by mouth once daily. Veyqpmhr-Yz-Gpt-Fe-FA tab Take 1 tablet by mouth once daily. folic acid 1 mg tablet Take 4 tablets by mouth once daily. lamoTRIgine ER (LAMICTAL XR) 300 mg 24 hr tablet Take 1 tablet by mouth every morning. VIT 10-IRON FUM-FOLIC ORAL Take by mouth. miconazole (MONISTAT 7) 2 % vaginal cream Use 1 Applicator vaginally daily at bedtime. (Patient not taking: Reported on 02/01/2024) No current facility-administered medications for this visit. ALLERGIES: ALLERGIES No Known Allergies VITALS: BP 98/60 Pulse 75 Temp 36.9 ?C (98.4 ?F) Resp 20 Wt 68.1 kg (150 lb 2.1 oz) LMP 09/24/2023 (Exact Date) SpO2 98% BMI 25.37 kg/m? Last 4 Encounter BP Readings: Date: BP: 02/01/2024 98/60 01/12/2024 100/60 10/29/2023 92/54 10/27/2023 128/70 PHYSICAL EXAM: GEN: Pleasant, in no acute distress. Accompanied by her children HEENT: PERRL, EOMI, conjunctiva clear Throat: moist mucous membranes, no erythema, no exudate Neck: supple, no thyromegaly, no lymphadenopathy HEART: regular rate and rhythm, no murmurs LUNGS: clear to auscultation, no wheezes or crackles, no increased WOB ABD: Soft, non-distended, suprapubic uterus palpable below the umbilicus, discomfort lower abdomen and left side. ASSESSMENT/PLAN: 1. Nausea and vomiting, unspecified vomiting type - ICD9: 787.01, ICD10: R11.2 Suspect infectious gastroenteritis. Hydration with fluids encouraged. Hand hygiene to reduce transmission. Right upper quadrant ultrasound was unable to be completed last week. OB labs including CMP were not drawn with her Lamictal level last week. She will have labs drawn this morning and reschedule right upper quadrant ultrasound. Follow up in the ER with signs of dehydration, increasing abdominal pain, high fever, or blood in vomit or stool. Te Gao MD [facility] 02-01-2024 History of Presen t illness Narrative Patient presents with: Abdominal Pain: Weakness, discolored stools x 4 days HPI: Currently 18 weeks ; reported abdominal pain and nausea/vomiting at new OB intake 01/12/24. Feeling worse for 4 days with change in stool color (green). Her daughter is sick with sore throat and multiple family members have had a gastrointestinal illness. Positive symptoms: Fatigue, Headache, Nausea, Vomiting (mostly dry heaves), Diarrhea, Negative symptoms: Cough, Nasal Congestion, Rhinorrhea, Fever, blood in stool, OTC: fluids PAST MEDICAL HISTORY No date: Anemia No date: Borderline personality disorder ([facility]) No date: Depression with anxiety No date: Diabetes, gestational No date: Factor V Leiden ([facility]) Comment: Diagnosed 201501/12/2024: History of gestational diabetes in prior , currently No date: depression No date: Seizure ([facility]) 06/15/2012: Seizures ([facility]) 09/08/2023: Seizures ([facility]) Comment: Last seizure 2022, admisssions to [facility] 09/07 aand 11/02 Dr Oz Terrazas PAST SURGICAL HISTORY No date: D&C, DIAG AND/OR THERAPEUTIC Comment: 2016 and 2021 MEDICATIONS: Current Outpatient Medications Medication Sig aspirin, enteric coated (ECOTRIN LOW STRENGTH) 81 mg EC tablet Take 1 tablet by mouth once daily. sertraline (ZOLOFT) 100 mg tablet Take 1 tablet by mouth once daily. Tdrttkpc-Jo-Pil-Fe-FA tab Take 1 tablet by mouth once daily. folic acid 1 mg tablet Take 4 tablets by mouth once daily. lamoTRIgine ER (LAMICTAL XR) 300 mg 24 hr tablet Take 1 tablet by mouth every morning. VIT 10-IRON FUM-FOLIC ORAL Take by mouth. miconazole (MONISTAT 7) 2 % vaginal cream Use 1 Applicator vaginally daily at bedtime. (Patient not taking: Reported on 02/01/2024) No current facility-administered medications for this visit. ALLERGIES: ALLERGIES No Known Allergies VITALS: BP 98/60 Pulse 75 Temp 36.9 C (98.4 F) Resp 20 Wt 68.1 kg (150 lb 2.1 oz) LMP 09/24/2023 (Exact Date) SpO2 98% BMI 25.37 kg/m Last 4 Encounter BP Readings: Date: BP: 02/01/2024 98/60 01/12/2024 100/60 10/29/2023 92/54 10/27/2023 128/70 PHYSICAL EXAM: GEN: Pleasant, in no acute distress. Accompanied by her children HEENT: PERRL, EOMI, conjunctiva clear Throat: moist mucous membranes, no erythema, no exudate Neck: supple, no thyromegaly, no lymphadenopathy HEART: regular rate and rhythm, no murmurs LUNGS: clear to auscultation, no wheezes or crackles, no increased WOB ABD: Soft, non-distended, suprapubic uterus palpable below the umbilicus, discomfort lower abdomen and left side. ASSESSMENT/PLAN: 1. Nausea and vomiting, unspecified vomiting type - ICD9: 787.01, ICD10: R11.2 Suspect infectious gastroenteritis. Hydration with fluids encouraged. Hand hygiene to reduce transmission. Right upper quadrant ultrasound was unable to be completed last week. OB labs including CMP were not drawn with her Lamictal level last week. She will have labs drawn this morning and reschedule right upper quadrant ultrasound. Follow up in the ER with signs of dehydration, increasing abdominal pain, high fever, or blood in vomit or stool. Te Gao MD documented in this encounter [facility] 01-28-2024 Telephone encounter Note Called patient, no answer Left VMM to return call to the office Juana Dawson RN [facility] 01-27-2024 Telephone encounter Note Please call patient regarding her LTG dose. Level was 1.6, can we please confirm she is taking LTG XR 300 mg daily. Please confirm how far along patient is in her and if she has had any breakthrough seizure activity. Will need to adjust medication accordingly. Joceline Diaz PA-C [facility] 01-14-2024 Telephone encounter Note 1st risk assessment form submitted 01/14/2024. Sirisha Fields RN [facility] 01-14-2024 Miscellaneous Notes 1st risk assessment form submitted 01/14/2024. Sirisha Fields RN documented in this encounter [facility] 01-12-2024 Telephone encounter Note Gallbladder ultrasound ordered, please contact pt to assist with scheduling appt. Catrina Luna APRN.ALEX [facility] 01-12-2024 Miscellaneous Notes Gallbladder ultrasound ordered, please contact pt to assist with scheduling appt. Catrina Luna APRN.SURVEY TECHNOLOGIST documented in this encounter [facility] 01-12-2024 Instructions Deanna Garza MA - 01/12/2024 8:17 AM EDT Please select the following link to access the [facility] Your Guide to a Healthy . [email or web address] documented in this encounter [facility] 01-11-2024 Telephone encounter Note Patient did agree to PNOB appointment. She is transferring care from [facility]. She states they changed EDC to calculate her at 14w2d today .She reports she had 2 previous visits with ultrasound-no labwork. Last visit end of November . I have given her our fax number to have her records transferred here prior to being seen tomorrow. States she has noted pelvic pain for 3-4 weeks. It lasts 10-30 minutes and occurs every other day. She states the pain can get to an 8 on the pain scale. She states she has reported this to her previous doctor and theyseemed unconcerned . She states previous uktrasound by [facility] showed IUP. Denies any bleeding this but does note some greenish mucousyesterday. Ulrich note itching, irritation x 2 weeks but denies any odor. She also notes some shortness of breath at times that is not related to activity-sometimes occurs at rest. She does note some heart racing occasionally. Shortness of breath lasts 2-3 minutes about 2-3 times a day. Denies any chest pain. She dies not believe this is due to depression and anxiety. History of abnormal thyroid levels as teenager but reports normal thyroid labs with . Patient also scored high on [place] depression/anxiety scales. Currently sees Belgica Chinchilla at [facility] in [place] weekly. States she had suicidal thoughts in past nut none since 6-7 months ago. Had 2 suicidal attempts at age 18. Discussed increased risks of depression during and and importance of reporting the development or worsening of symptoms should they occur.Hx PP depression after all previous pregnancies. Aware of suicidal hotline number. I have discussed with patient that if she develops any bleeding or pain increases, SOB or heart racing increases she needs to go to ER and seek immediate treatment. I have asked her to call her PCP to report SOB and heart racing. Call only if further advice. Pt does have NOB appointment tomorrow with RM [facility] 01-11-2024 Miscellaneous Notes Patient did agree to PNOB appointment. She is transferring care from [facility]. She states they changed EDC to calculate her at 14w2d today .She reports she had 2 previous visits with ultrasound-no labwork. Last visit end of November . I have given her our fax number to have her records transferred here prior to being seen tomorrow. States she has noted pelvic pain for 3-4 weeks. It lasts 10-30 minutes and occurs every other day. She states the pain can get to an 8 on the pain scale. She states she has reported this to her previous doctor and theyseemed unconcerned . She states previous uktrasound by [facility] showed IUP. Denies any bleeding this but does note some greenish mucousyesterday. Ulrich note itching, irritation x 2 weeks but denies any odor. She also notes some shortness of breath at times that is not related to activity-sometimes occurs at rest. She does note some heart racing occasionally. Shortness of breath lasts 2-3 minutes about 2-3 times a day. Denies any chest pain. She dies not believe this is due to depression and anxiety. History of abnormal thyroid levels as teenager but reports normal thyroid labs with . Patient also scored high on [place] depression/anxiety scales. Currently sees Belgica Chinchilla at [facility] in [place] weekly. States she had suicidal thoughts in past nut none since 6-7 months ago. Had 2 suicidal attempts at age 18. Discussed increased risks of depression during and and importance of reporting the development or worsening of symptoms should they occur.Hx PP depression after all previous pregnancies. Aware of suicidal hotline number. I have discussed with patient that if she develops any bleeding or pain increases, SOB or heart racing increases she needs to go to ER and seek immediate treatment. I have asked her to call her PCP to report SOB and heart racing. Call only if further advice. Pt does have NOB appointment tomorrow with RM Left message for patient to return phone call to complete nurse intake questions for her upcoming appointment. Patient has an appointment with Catrina Mcduffie for NOB appointment tomorrow. She had previously declined PNOB-not sure if it was due to timing etc. Please let her know if she is available, I am here most of day to assist completing nurse intake documented in this encounter [facility] 01-11-2024 Note HNO ID: [id number] Author: CATRINA MCDUFFIE APRN.SURVEY TECHNOLOGIST Service: ? Author Type: Nurse Practitioner Type: Progress Notes Filed: 01/12/2024 12:53 Note Text: Soda Worker offered: Patient declines. INITIAL OB ASSESSMENT HPI: Bertin is a 28 year old White Female here to establish Obstetrical Care. Patient's last menstrual period was 09/24/2023 (exact date). from OB Dating Form. was unplanned but accepted- but fells like more anxiety and depression this Complaints: (!) Abdominal pain; Heart racing or skipping beats; Severe nausea/vomiting; Irritating vaginal discharge (notes SOB 2-3 times a day lasting no longer than 2 minutes, hs heart racing with it at times, severe nausea-no vomiting) OB History T3 L3 SAB4 IAB0 Ectopic0 Multiple0 Live Births3 # 1 - Date: 10/05/15, Sex: Female, Weight: 3.572 kg (7 lb 14 oz), GA: 39w0d, Delivery: Vaginal, Spontaneous, Apgar1: None, Apgar5: None, Living: Living, Comments: None # 2 - Date: 2017, Sex: None, Weight: None, GA: 9w0d, Delivery: INDUCED , Apgar1: None, Apgar5: None, Living: None, Comments: No Complications # 3 - Date: 04/14/19, Sex: Male, Weight: 3.544 kg (7 lb 13 oz), GA: 37w4d, Delivery: Vaginal, Spontaneous, Apgar1: None, Apgar5: None, Living: Living, Comments: Received steroids for PTLapprox 8th month of # 4 - Date: 09/2020, Sex: None, Weight: None, GA: 7w0d, Delivery: None, Apgar1: None, Apgar5: None, Living: None, Comments: None # 5 - Date: 12/2020, Sex: None, Weight: None, GA: 7w0d, Delivery: None, Apgar1: None, Apgar5: None, Living: None, Comments: None # 6 - Date: 06/2021, Sex: None, Weight: None, GA: 8w0d, Delivery: None, Apgar1: None, Apgar5: None, Living: None, Comments: None # 7 - Date: 10/14/21, Sex: None, Weight: None, GA: 10w0d, Delivery: None, Apgar1: None, Apgar5: None, Living: None, Comments: DANDC # 8 - Date: 11/21/22, Sex: Male, Weight: 3.515 kg (7 lb 12 oz), GA: 38w3d, Delivery: Vaginal, Spontaneous, Apgar1: None, Apgar5: None, Living: Living, Comments: Induced due to polyhydramnios, gestational diabetes-diet controlled # 9 - Date: None, Sex: None, Weight: None, GA: None, Delivery: None, Apgar1: None, Apgar5: None, Living: None, Comments: None Previous history: Prior : No History of 4th degree laceration: no Perineal Laceration, 3rd or 4th degree no History of shoulder dystocia: no History of Hypertensive disorders including pre-eclampsia or gestational hypertension: History of gestational diabetes: ne Diabetes in yes Patient's Risk Screening for delivery: Have you had a prior rosas between 20w and 36w6d? No How many pregnancies have you had before? 8 Did you have a previous baby with a GBS Infection? No Please select all that apply for any prior : N/A MEDICAL/PSYCHOSOCIAL HISTORY: Severe bleeding with delivery no History question Answer Diagnosis Date Comment Thyroid Disease No Thyroid disease 01/11/2024 hx abnl thyroid labs as teenager per patient Diabetes in no No results found for: ABORHD BMI 24.61 kg/(m2) Last Pap: History of abnormal pap: Abnormal Pap No Prior treatment for cervical dysplasia: none. Last HPV: History of STDs: N/A Partner History of STDs: None Did you have a partner with Herpes? No Tobacco use: No E-Cigarette/Vaping Use: Yes Caffeine use: No Drug use: No- last used marijuana 2 weeks ago Alcohol use: No Multivitamin with Folic acid: Yes Would refuse blood transfusion if medically necessary: No Social Needs: How often does this describe you? I don't have enough money to pay my bills: Never Within the past 12 months, have you worried that your food would run out before you had money to buy more? Sometimes In the past 12 months, has lack of reliable transportation kept you from going to medical appointments or work, or from getting things needed for daily living? Never In the past 12 months, have you had any concerns about having a place to live, or about the condition or quality of your housing? Never Would you like more information on any of the following (please check all that apply)? 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 Yes Do you have a history of abuse or trauma that may impact your experience? no Are you currently employed? No Depression/Anxiety Screening: admits to symptoms of depression. OB Depression and Anxiety Screening- This Encounter (since 01/11/2024) Over the past 2 weeks have you felt down, depressed, or hopeless? Positive - Further Testing Indicated Over the past two weeks, have you felt little interest or pleasure in doing things?? Positive - Further Testing Indicated I have been able to laugh and see the funny side of things. Not qu (more content not included)... [facility] 01-11-2024 History of Presen t illness Narrative Images from the original note were not included. Soda Worker offered: Patient declines. INITIAL OB ASSESSMENT HPI: Bertin is a 28 year old White Female here to establish Obstetrical Care. Patient's last menstrual period was 09/24/2023 (exact date). from OB Dating Form. was unplanned but accepted- but fells like more anxiety and depression this Complaints: (!) Abdominal pain; Heart racing or skipping beats; Severe nausea/vomiting; Irritating vaginal discharge (notes SOB 2-3 times a day lasting no longer than 2 minutes, hs heart racing with it at times, severe nausea-no vomiting) OB History T3 L3 SAB4 IAB0 Ectopic0 Multiple0 Live Births3 # 1 - Date: 10/05/15, Sex: Female, Weight: 3.572 kg (7 lb 14 oz), GA: 39w0d, Delivery: Vaginal, Spontaneous, Apgar1: None, Apgar5: None, Living: Living, Comments: None # 2 - Date: 2017, Sex: None, Weight: None, GA: 9w0d, Delivery: INDUCED , Apgar1: None, Apgar5: None, Living: None, Comments: No Complications # 3 - Date: 04/14/19, Sex: Male, Weight: 3.544 kg (7 lb 13 oz), GA: 37w4d, Delivery: Vaginal, Spontaneous, Apgar1: None, Apgar5: None, Living: Living, Comments: Received steroids for PTLapprox 8th month of # 4 - Date: 09/2020, Sex: None, Weight: None, GA: 7w0d, Delivery: None, Apgar1: None, Apgar5: None, Living: None, Comments: None # 5 - Date: 12/2020, Sex: None, Weight: None, GA: 7w0d, Delivery: None, Apgar1: None, Apgar5: None, Living: None, Comments: None # 6 - Date: 06/2021, Sex: None, Weight: None, GA: 8w0d, Delivery: None, Apgar1: None, Apgar5: None, Living: None, Comments: None # 7 - Date: 10/14/21, Sex: None, Weight: None, GA: 10w0d, Delivery: None, Apgar1: None, Apgar5: None, Living: None, Comments: D&C # 8 - Date: 11/21/22, Sex: Male, Weight: 3.515 kg (7 lb 12 oz), GA: 38w3d, Delivery: Vaginal, Spontaneous, Apgar1: None, Apgar5: None, Living: Living, Comments: Induced due to polyhydramnios, gestational diabetes-diet controlled # 9 - Date: None, Sex: None, Weight: None, GA: None, Delivery: None, Apgar1: None, Apgar5: None, Living: None, Comments: None Previous history: Prior : No History of 4th degree laceration: no Perineal Laceration, 3rd or 4th degree no History of shoulder dystocia: no History of Hypertensive disorders including pre-eclampsia or gestational hypertension: History of gestational diabetes: ne Diabetes in yes Patient's Risk Screening for delivery: Have you had a prior rosas between 20w and 36w6d? No How many pregnancies have you had before? 8 Did you have a previous baby with a GBS Infection? No Please select all that apply for any prior : N/A MEDICAL/PSYCHOSOCIAL HISTORY: Severe bleeding with delivery no History question Answer Diagnosis Date Comment Thyroid Disease No Thyroid disease 01/11/2024 hx abnl thyroid labs as teenager per patient Diabetes in no No results found for: ABORHD BMI 24.61 kg/(m^2) Last Pap: History of abnormal pap: Abnormal Pap No Prior treatment for cervical dysplasia: none. Last HPV: History of STDs: N/A Partner History of STDs: None Did you have a partner with Herpes? No Tobacco use: No E-Cigarette/Vaping Use: Yes Caffeine use: No Drug use: No- last used marijuana 2 weeks ago Alcohol use: No Multivitamin with Folic acid: Yes Would refuse blood transfusion if medically necessary: No Social Needs: How often does this describe you? I don't have enough money to pay my bills: Never Within the past 12 months, have you worried that your food would run out before you had money to buy more? Sometimes In the past 12 months, has lack of reliable transportation kept you from going to medical appointments or work, or from getting things needed for daily living? Never In the past 12 months, have you had any concerns about having a place to live, or about the condition or quality of your housing? Never Would you like more information on any of the following (please check all that apply)? 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 Yes Do you have a history of abuse or trauma that may impact your experience? no Are you currently employed? No Depression/Anxiety Screening: admits to symptoms of depression. OB Depression and Anxiety Screening- This Encounter (since 01/11/2024) Over the past 2 weeks have you felt down, depressed, or hopeless? Positive - Further Testing Indicated Over the past two weeks, have you felt little interest or pleasure in doing things? Positive - Further Testing Indicated I have been able to laugh and see the funny side of things. Not quite so much now I have looked forward with enjoyment to things. Definitely less than I used to I have blamed myself unnecessarily when things went wrong. Yes, most of the time I have been anxious or worried for no good reason. No, not at all I have felt scared or panicky for no good reason. No, not at all Things have been getting on top of me. Yes, most of the time I haven't been able to cope at all I have been so unhappy that I have had difficulty sleeping. Yes, most of the time I have felt sad or miserable. Yes, quite often I have been so unhappy that I have been crying. Yes, most of the time The thought of harming myself has occurred to me. Never [place] Depression Scale Total 17 Feeling nervous, anxious or on edge 2-More than half the days Not being able to stop or control worrying 3-Nearly every day Anxiety Pre-Screening Total (If >/= 3 additional questions will be reviewed) 5 Worrying too much about different things 3-Nearly every day Trouble relaxing 3-Nearly every day Being so restless that it is hard to sit still 0-Not al all Becoming easily annoyed or irritable 3-Nearly every day Feeling afraid, as if something awful might happen 1-Several days Anxiety (SARMAD) Full Screening Total 15 Genetic Screening: Partner present: No Patient verbalized knowledge of partner family health history: Yes Do you or your partner have any personal or family history of defects not previously discussed: No Do you have history of a complicated by anomaly, genetic condition, or demise: No Low Dose ASA Screening: Screening for low dose aspirin use for the prevention of pre-eclampsia: High risk factors: gestational diabetes Moderate risk ractors: None OB Risk Screening: Completed, no positive findings documented. 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 360 tablet 2 sertraline (ZOLOFT) 50 mg tablet Take 1 tablet by mouth once daily 90 tablet 0 lamoTRIgine ER (LAMICTAL XR) 300 mg 24 hr tablet Take 1 tablet by mouth every morning. 90 tablet 3 VIT 10-IRON FUM-FOLIC ORAL Take by mouth. No current facility-administered medications for this visit. Allergies As of Date: 01/12/2024 (No Known Allergies) Fully Assessed 01/12/2024 Does patient have penicillin allergy: No REVIEW OF SYSTEMS: GENERAL: Negative for: Fever or Chills HEENT: Negative for: Headache, Impaired Vision, Ringing in Ears, Nosebleeds NECK: Negative for: Swelling, Pain, Stiffness RESPIRATORY: Negative for: Cough,Wheezing and +feeling SOB at times may be r/t anxiety GASTROINTESTINAL: Negative for: Heartburn, Constipation, Blood in stool, Vomiting and +diarrhea/loose stool multiple times a day MUSCULOSKELETAL: Negative for: Muscle or joint pain, stiffness, Joint swelling NEUROLOGIC/PSYCHIATRIC: Negative for: Weakness, Paralysis, Numbness, Tingling, Tremor, Depression, Memory loss +Anxiety SKIN: Negative for: Rash, Itching GENITOURINARY: +vaginal iritation PHYSICAL EXAM: BP 100/60 Ht 5' 4.5 (1.64m) Wt 145 lb 9.6 oz (66.0kg) LMP 09/24/2023 BMI 24.62 kg/(m^2). GENERAL: pleasant in no apparent distress DERMATOLOGY: Normal, without lesions, non-icteric, and non-hirsute NECK: Supple, full range of motion, no adenopathy, and thyroid normal CHEST: Normal inspiratory effort BREAST: soft, non-tender, symmetric, no dominant mass, normal nipple-areolar complex, no lymphadenopathy, and no nipple discharge ABDOMEN: soft, non-tender, and no masses NEURO: alert and oriented x3,exam grossly non-focal PELVIS: External genitalia normal without lesions. Perineal body intact. No vaginal or cervical lesions. Cervix closed. No adnexal masses or tenderness. Clinical Pelvimetry: Pelvimetry clinically assessed as adequate Limited OB ultrasound exam: not performed SBIRT Bertin Sandovalcalf was given the 4's screening tool. Bertin answered as follows: OB Opioid Screening - Last Recorded (since 04/16/2023) Did any of your parents have a problem with alcohol or other drug use? No Does your partner have a problem with alcohol or other drug use? No In the past, have you had difficulties in your life because of alcohol or other drugs, including prescription medications? No In the past month have you drunk any alcohol or used other drugs? Yes last used marijuana 2 weeks ago Are you taking medication for pain during the either prescribed or not? No Based on the screen and further questions, she is considered at Low risk due to: last used 2 wks ago Positive reinforcement of current behavior. Plan to rescreen early third trimester. Catrina Mcduffie APRN.CNP ASSESSMENT: 28 year old at 15w5d wks gestational age PLAN: 1) Patient oriented to practice. Patient given new OB orientation folder. Discussed nutrition, folic acid supplementation, dietary guidelines, exercise, smoking, alcohol, caffeine, and drug use. Discussed gestational weight gain guidelines. Discussed routine OB labs including STD/HIV. Discussed how to access Your guide to a health and the Farm Truck Driver. Reviewed midwifery and material control specialist services that are available. 2) Screening: Hemoglobin A1C: ordered Baby Aspirin: The patient has been counseled about the potential benefits of low dose aspirin in and our recommendation that this be offered to all patients, regardless of whether they meet the high risk criteria specified above. She Accepts Aneuploidy Screening: Discussed aneuploidy screening, nuchal translucency/first trimester early anatomy ultrasound and NIPT. The risks/benefits and limitations of NIPT/aneuploidy screening were reviewed including the potential for false negative and false positive results. The availability of genetic counseling was reviewed. Information on aneuploidy screening was provided. The patient declines screening Myriad Carrier Screening: Discussed myriad carrier screening. We discussed the availability of professional-society guided carrier screening and reviewed the conditions screened and limitations of screening. The availability of genetic counseling was reviewed. Information on carrier screening was provided. The patient Declines 3) Patient offered option of Virtual Visits. Patient unsure. May consider in future. 4) History of diabetes: Given previous gestational diabetes or LGA baby, ordered early glucose screen or Hemoglobin A1C Hx of depression/anxiety Increase Zoloft to 100 mg 5) anatomy scan ordered, gallbladder US ordered, BV/yeast ordered Follow up in 4 weeks or sooner prn. Catrina Mcduffie APRN.ALEX documented in this encounter [facility] 01-11-2024 Telephone encounter Note Left message for patient to return phone call to complete nurse intake questions for her upcoming appointment. Patient has an appointment with Catrina Mcduffie for NOB appointment tomorrow. She had previously declined PNOB-not sure if it was due to timing etc. Please let her know if she is available, I am here most of day to assist completing nurse intake T [facility] 11-11-2023 Telephone encounter Note Record ID: [id number] Patient name: Bertin Mcduffie Date: November 11, 2023 - 08:04 Administered by: REY Protocol: -> Great! Now we are in a secure chat environment. Protecting your health information is important to us. Ok, let's get started. Please verify your name and date of . Please click on the button with your first name. -> Bertin Got it. On to the next question... Select the button with your last name. -> Froy Got it, thank you. Please enter your date of in MM/DD/YYYY format:(e.g., 07/03/1968 for Jul 03, 1968) -> 1995 Thank you for verifying your information. I'd like to ask you a few questions about how your recovery is going. Have you experienced any new or worsening symptoms since returning home? -> No I'm glad to hear that. Have you had a hospital follow-up appointment yet since your discharge? -> No T [facility] 11-11-2023 Miscellaneous Notes Record ID: [id number] Patient name: Bertin Mcduffie Date: November 11, 2023 - 08:04 Administered by: REY Protocol: -> Great! Now we are in a secure chat environment. Protecting your health information is important to us. Ok, let's get started. Please verify your name and date of . Please click on the button with your first name. -> Bretin Got it. On to the next question... Select the button with your last name. -> Froy Got it, thank you. Please enter your date of in MM/DD/YYYY format:(e.g., 07/03/1968 for Jul 03, 1968) -> 1995 Thank you for verifying your information. I'd like to ask you a few questions about how your recovery is going. Have you experienced any new or worsening symptoms since returning home? -> No I'm glad to hear that. Have you had a hospital follow-up appointment yet since your discharge? -> No documented in this encounter [facility] 11-09-2023 Telephone encounter Note Record ID: [id number] Patient name: Bertin Mcduffie Date: November 09, 2023 - 09:02 Administered by: REY Protocol: -> Great! Now we are in a secure chat environment. Protecting your health information is important to us. Ok, let's get started. Please verify your name and date of . Please click on the button with your first name. -> Bertin Got it. On to the next question... Select the button with your last name. -> Froy Got it, thank you. Please enter your date of in MM/DD/YYYY format:(e.g., 07/03/1968 for Jul 03, 1968) -> 1995 Thank you for verifying your information. I'd like to ask you a few questions about how your recovery is going. Since leaving the hospital, do you have any new or worsening symptoms? -> Yes And how have these symptoms changed since you first noticed them? -> Same To play it safe, your symptoms should be reviewed by a clinician. If you think this is a medical emergency, go to the nearest emergency room or call 911. Otherwise you can expect a call from a [facility] registered nurse within the next business day. Thank you for your time and allowing us to care for you. We will check in on you over the next four weeks to ensure you continue to recover and support your needs. In the meantime, please reach out to your PCP for any questions or concerns.Thank you for choosing [facility]! -> [facility] 11-09-2023 Miscellaneous Notes Record ID: [id number] Patient name: Bertin Mcduffie Date: November 09, 2023 - :02 Administered by: REY Protocol: -> Great! Now we are in a secure chat environment. Protecting your health information is important to us. Ok, let's get started. Please verify your name and date of . Please click on the button with your first name. -> Bertin Got it. On to the next question... Select the button with your last name. -> Froy Got it, thank you. Please enter your date of in MM/DD/YYYY format:(e.g., 07/03/1968 for Jul 03, 1968) -> 1995 Thank you for verifying your information. I'd like to ask you a few questions about how your recovery is going. Since leaving the hospital, do you have any new or worsening symptoms? -> Yes And how have these symptoms changed since you first noticed them? -> Same To play it safe, your symptoms should be reviewed by a clinician. If you think this is a medical emergency, go to the nearest emergency room or call 911. Otherwise you can expect a call from a [facility] registered nurse within the next business day. Thank you for your time and allowing us to care for you. We will check in on you over the next four weeks to ensure you continue to recover and support your needs. In the meantime, please reach out to your PCP for any questions or concerns.Thank you for choosing [facility]! -> documented in this encounter [facility] 11-09-2023 Telephone encounter Note Record ID: [id number] Patient name: Bertin Mcduffie Date: November 09, 2023 - Administered by: REY Protocol: -> Great! Now we are in a secure chat environment. Protecting your health information is important to us. Ok, let's get started. Please verify your name and date of . Please click on the button with your first name. -> Bertin Got it. On to the next question... Select the button with your last name. -> [place] Got it, thank you. Please enter your date of in MM/DD/YYYY format:(e.g., 07/03/1968 for Jul 03, 1968) -> 1995 Thank you for verifying your information. I'd like to ask you a few questions about how your recovery is going. Since leaving the hospital, do you have any new or worsening symptoms? -> Yes And how have these symptoms changed since you first noticed them? -> Same [facility] 11-09-2023 Miscellaneous Notes Record ID: [id number] Patient name: Bertin Mcduffie Date: November 09, 2023 - Administered by: REY Protocol: -> Great! Now we are in a secure chat environment. Protecting your health information is important to us. Ok, let's get started. Please verify your name and date of . Please click on the button with your first name. -> Bertin Got it. On to the next question... Select the button with your last name. -> Froy Got it, thank you. Please enter your date of in MM/DD/YYYY format:(e.g., 07/03/1968 for Jul 03, 1968) -> 1995 Thank you for verifying your information. I'd like to ask you a few questions about how your recovery is going. Since leaving the hospital, do you have any new or worsening symptoms? -> Yes And how have these symptoms changed since you first noticed them? -> Same documented in this encounter [facility] 11-05-2023 Note HNO ID: [id number] Author: ANIRUDH VALLES RN Service: Care Management Author Type: Registered Nurse Type: Care Mgt Progress Note Filed: 11/05/2023 13:55 Note Text: CARE MANAGEMENT DISCHARGE NOTE SERVICE DATE: November 05, 2023 SERVICE TIME: 1:54 PM Admission Date: 11/03/2023 LOS: 2 days Discharge Arrangement Discharge Arrangement: Home with Self Care Services Arranged Provider Name: NA Phone: NA Caregiver Assessment Caregiver is ready, willing and able to meet the patient's needs as recommended by the inter-professional team: No Caregiver needed Transportation Arrangements Transportation Arrangements: Car Date of Trip: 11/05/23 Destination: Home Handoff Communication: Handoff to: Primary Care Physician Primary Care Physician Name/Phone: Dr Bird [phone] Additional Information: Patient is discharging home with self care. Patient to transport self at discharge. SIGNATURE: Anirudh Valles RN PATIENT NAME: Bertin Mcduffie DATE: November 05, 2023 TIME: 1:54 PM CONTACT #: [phone] [facility] 11-05-2023 Note HNO ID: [id number] Author: OZ TERRAZAS MD Service: Neurology Adult Epilepsy Author Type: Nurse Practitioner Type: Progress Notes Filed: 11/05/2023 15:30 Note Text: Attestation signed by Oz Terrazas MD at 11/05/2023 3:30 PM EPILEPSY CENTER ATTENDING NOTE [facility] Epilepsy Monitoring Unit Progress Note Date of Service: November 05, 2023 [facility] STAFF PHYSICIAN NOTE OF PERSONAL INVOLVEMENT IN CARE Patient was interviewed and examined by me on separate attending rounds this morning with nurse practitioner, Ashley Carlson CNP. I have reviewed the history, exam, diagnosis, and plan obtained and documented by the nurse practitioner as above. I performed my own jqgr-as-rxwc assessment and personally participated in the cruz components. The following comments revise or confirm these. I have discussed the case and management of the patient's care with the care team. Clinical overnight update: No episodes. No complaints. She wants to go home for her kids. I recommended starting medication today and leaving tomorrow morning but she insisted on leaving today. Pertinent exam: Normal neurological examination Data reviewed: Continuous video EEG recording was personally reviewed by myself and the results of the evaluation to date are summarized below. Interictal findings: none Ictal findings: none IMPRESSION: 27-year-old woman presents to the EMU for evaluation of recurrent events of staring preceded by an aura. No history of convulsions. History is suggestive of focal epilepsy. Prior records of MRI brain show it is normal. Exam is normal. She had an EEG in [address] with unknown results. She had an episode on 03/11/23 after missing two days of medication. She continues to have seizures 1-2 times per year despite compliance. She has depression and anxiety without SI. No episodes in sleep. No memory issues. Discussed EMU admission and would like to pursue it. She attempted EMU evaluation in August 2023 but left early due to needing to care for her baby. She is returning for completion of the evaluation. During the last evaluation, no typical events were captured and interictal EEG showed right parieto-occipital sharp waves. Primary epileptologist: Dr. Terrazas Admit Date: 11/02 AEDs Home: LTG ER 300 mg once daily Here: 11/02: stopped LTG ER 11/03: continue to hold LTG ER 11/04: start LTG ER 300 mg once daily, first dose now in preparation for discharge PLAN: Continuous video-EEG monitoring continues ASM changes as above Seizure precautions Rescue plan in place: 2mg of lorazepam (Ativan) IV as needed for prolonged motor epileptic seizure greater than 3 minutes and or 3rd motor epileptic seizure within 8 hours. Discharge planning today Follow-up after discharge with Dr. Terrazas in 6 months; earlier if needed Check LTG level monthly during Start folic acid 4 mg once daily The treatment plan was discussed in detail with the patient. Time for questions was given and answers were discussed. The patient agreed with the treatment plan. Oz Terrazas MD Staff Physician [facility] Epilepsy Center Personal Pager and Cell Office: [phone] For urgent EEG review, call the Epilepsy Continuous Monitoring Unit (ECMU) at [facility] [phone] or [phone]. For overnight issues, 7pm [place] 7am, [place] [phone]. For in house night coverage of emergencies, call [facility] pager [phone]. NEUROLOGY EPILEPSY MONITORING UNIT (EMU) PROGRESS NOTE COVERAGE: 7 am - 7 pm please page the [facility] Staff java application engineer (EPI EMU Service: AG Neurology) 7 pm - 7 am, please page [phone] to contact the epilepsy provider java application engineer (EPI On-Call Night) Subjective No complaints. No seizures overnight. Would like to go home today to be with her kids HOME ANTI EPILEPTIC DRUGS: LTG XR 300 mg daily ANTI EPILEPTIC DRUGS HERE: Objective 11/04/23 2243 11/05/23 0647 11/05/23 0658 11/05/23 1030 BP: 111/69 92/54 92/54 Pulse: 71 84 70 Resp: 24 21 Temp: 37 ?C (98.6 ?F) 37 ?C (98.6 ?F) 37 ?C (98.6 ?F) TempSrc: Temporal Temporal Oral SpO2: 98% 98% 98% Weight: Height: EKG, TELEMETRY, EEG, MONITORS AND ALARMS ARE ON: Yes Written order: Remains standing. SEIZURE DETECTION SOFTWARE ON: Yes field installation technician has been notified: Yes weblogic administrator has been notified: Yes EXAM: Mental Status: Alert and oriented to person, place and time. Able to follow 1 and 2 step commands. Cranial Nerves: Pupils equal and reactive to light, extraocular muscles intact. No nystagmus, face symmetric. Motor: Moves all extremities equally. Sensation: Intact to (more content not included)... [facility] 11-05-2023 Note HNO ID: [id number] Author: ASHLEY CARLSON APRN.CNP Service: Neurology Adult Epilepsy Author Type: Nurse Practitioner Type: Progress Notes Filed: 11/05/2023 12:33 Note Text: Documentation Query Based on your medical judgment of the clinical indicators outlined below, please clarify the condition: (Please type X next to your response and sign) Clinical Indicators: 11/03 Nutrition Assessment: Recommended Malnutrition Diagnosis: Mild Protein-Calorie Malnutrition In the context of: Chronic Illness or Injury Based on: Insufficient Energy Intake Intake History: Nutrition Intake Prior to Admission: Less than 75% estimated energy needs greater than or equal to 1 month.Pt chronically with no appetite.Only able to eat with THC use.If she forces herself to eat she's in the bathroom all day.Conflicting information in that she's adamant that she wants to eat more to gain wt, however, has refused certain meds in that past d/t potential wt gain. Nutrition Diagnosis: Problem: Suboptimal protein/energy intake Related to: Inability to consume sufficient nutrients As evidenced by: Medical condition, Patient/family self-report, Weight loss Care Plan: Continue current diet Monitor for needs as dislikes supplements ? GI work up as OP Please clarify the Patient's Nutritional Status x Mild Protein Calorie Malnutrition based on the above assessment, plan, and treatment Other, please specify [facility] 11-04-2023 Note HNO ID: [id number] Author: OZ TERRAZAS MD Service: Neurology Adult Epilepsy Author Type: Nurse Practitioner Type: Progress Notes Filed: 11/04/2023 13:40 Note Text: Attestation signed by Oz Terrazas MD at 11/04/2023 1:40 PM EPILEPSY CENTER ATTENDING NOTE [facility] Epilepsy Monitoring Unit Progress Note Date of Service: November 04, 2023 [facility] STAFF PHYSICIAN NOTE OF PERSONAL INVOLVEMENT IN CARE Patient was interviewed and examined by me on separate attending rounds this morning with nurse practitioner, Ashley Carlson CNP. I have reviewed the history, exam, diagnosis, and plan obtained and documented by the nurse practitioner as above. I performed my own emir-eq-nhye assessment and personally participated in the cruz components. The following comments revise or confirm these. I have discussed the case and management of the patient's care with the care team. Clinical overnight update: No episodes. No complaints. She just discovered that she is approximately 4-5 weeks on urine test. Pertinent exam: Normal neurological examination Data reviewed: Continuous video EEG recording was personally reviewed by myself and the results of the evaluation to date are summarized below. Interictal findings: none Ictal findings: none IMPRESSION: 27-year-old woman presents to the EMU for evaluation of recurrent events of staring preceded by an aura. No history of convulsions. History is suggestive of focal epilepsy. Prior records of MRI brain show it is normal. Exam is normal. She had an EEG in [address] with unknown results. She had an episode on 03/11/23 after missing two days of medication. She continues to have seizures 1-2 times per year despite compliance. She has depression and anxiety without SI. No episodes in sleep. No memory issues. Discussed EMU admission and would like to pursue it. She attempted EMU evaluation in August 2023 but left early due to needing to care for her baby. She is returning for completion of the evaluation. During the last evaluation, no typical events were captured and interictal EEG showed right parieto-occipital sharp waves. Primary epileptologist: Dr. Terrazas Admit Date: 11/02 AEDs Home: LTG ER 300 mg once daily Here: 11/02: stopped LTG ER 11/03: continue to hold LTG ER PLAN: Continuous video-EEG monitoring continues Holding home anti-epileptic medications Admission AED levels pending Seizure precautions Rescue plan in place: 2mg of lorazepam (Ativan) IV as needed for prolonged motor epileptic seizure greater than 3 minutes and or 3rd motor epileptic seizure within 8 hours. Discharge planning pending capturing episodes of concern Follow-up after discharge with Dr. Terrazas The treatment plan was discussed in detail with the patient. Time for questions was given and answers were discussed. The patient agreed with the treatment plan. Oz Terrazas MD Staff Physician [facility] Epilepsy Center Personal Pager and Cell Office: [phone] For urgent EEG review, call the Epilepsy Continuous Monitoring Unit (ECMU) at [facility] [phone] or [phone]. For overnight issues, 7pm [place] 7am, [place] [phone]. For in house night coverage of emergencies, call [facility] pager [phone]. NEUROLOGY EPILEPSY MONITORING UNIT (EMU) PROGRESS NOTE COVERAGE: 7 am - 7 pm please page the [place] [facility] Staff java application engineer (EPI EMU Service: Neurology) 7 pm - 7 am, please page [phone] to contact the epilepsy provider java application engineer (EPI On-Call Night) Subjective No complaints. No seizures overnight. HOME ANTI EPILEPTIC DRUGS: LTG XR 300 mg daily ANTI EPILEPTIC DRUGS HERE: LTG IR 150 mg BID Objective 11/03/23204611/03/23 2313 11/04/23 0628 11/04/23 1045 BP: 117/67 102/61 98/53 Pulse: 80 76 80 Resp: Temp: 36.4 ?C (97.6 ?F) 36.7 ?C (98.1 ?F) 36.9 ?C (98.5 ?F) TempSrc: Temporal Temporal Oral SpO2: 99% 98% 97% 99% Weight: Height: EKG, TELEMETRY, EEG, MONITORS AND ALARMS ARE ON: Yes Written order: Remains standing. SEIZURE DETECTION SOFTWARE ON: Yes field installation technician has been notified: Yes weblogic administrator has been notified: Yes EXAM: Mental Status: Alert and oriented to person, place and time. Able to follow 1 and 2 step commands. Cranial Nerves: Pupils equal and reactive to light, extraocular muscles intact. No nystagmus, face symmetric. Motor: Moves all extremities equally. Sensation: Intact to light touch. Coordination: No dysmetria DATA: Diagnostic tests reviewed for today's visit: LTG in process HCG + QUALITY CHECKLIST: Lines, Drains, and Airways Line Duration (more content not included)... [facility] 11-04-2023 Note HNO ID: [id number] Author: ANIRUDH VALLES, TRAY Service: Care Management Author Type: Registered Nurse Type: Care Mgt Progress Note Filed: 11/04/2023 10:33 Note Text: Patient was given [address] Card and yellow food pantry slip at bedside. Patient was in chair at bedside. Will follow for transitional care planning. [facility] 11-04-2023 Note HNO ID: [id number] Author: ANIRUDH VALLES RN Service: Care Management Author Type: Registered Nurse Type: Care Mgt Progress Note Filed: 11/04/2023 07:48 Note Text: CARE MANAGEMENT PROGRESS NOTE SERVICE DATE: 11/04/2023 SERVICE TIME: 7:47 AM LOS: 1 day Post-Acute Discharge Planning Patient Goal(s): Be able to go home, Independent living, General wellness [place] [facility] [place] Explained: Discharge Planning Participant(s): Patient Patient/Family Comments: Anticipated # of Days Until Discharge: Transport at Discharge: Transportation Arrangements: Car Destination: Home Needs Prior to Discharge: Needs Prior to Discharge: To Be Determined, Discharge Prescriptions Post-Acute Discharge Plan: Patient is from home with family. 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 Will give patient [address] Card and food voucher. Patient will transport self at discharge. Planned admission. No CM needs at this time. Will follow for transitional care planning. SIGNATURE: Anirudh Valles RN PATIENT NAME: Bertin Mcduffie DATE: November 04, 2023 TIME: 7:47 AM PAGER/CONTACT #: [phone] [facility] 11-03-2023 Note HNO ID: [id number] Author: ANIRUDH VALLES RN Service: Care Management Author Type: Registered Nurse Type: Care Mgt Initial Assessment Filed: 11/03/2023 15:47 Note Text: CARE MANAGEMENT: ASSESSMENT AND DISCHARGE PLAN SERVICE DATE: November 03, 2023 SERVICE TIME: 3:45 PM PCP: Carlos Bird DO Primary Contact: Extended Emergency Contact Information Primary Emergency Contact: Beau Chandler [address]: [address] [place] [id number] [place] [address] Mobile Relation: Spouse Secondary Emergency Contact: Halle Osorio Address: [id number] [place] [address] Mobile Relation: Mother Admission Status: To Come In Insurance Provider: [facility] MEDICAID Discharge Planning requested by: Per Department Practice Potential Transition Plans No Services Indicated;Home;To Be Determined Advance Directives Current Advance Directive: None Accountant Clerk Attempted to Assist with AD Completion: Yes Action: Education Provided Current Living Arrangements and Support Lives with: Children, Spouse/significant other Type of Residence: Private Residence (House) Does the patient have to climb stairs at home?: Yes;stairs outside the home;stairs within the home Support: Family members, Friends/neighbors, Children, Spouse/significant other How do you manage to accomplish the following: Independent: Ambulation;Bathe/Shower;Dress;Me als/Meal Prep;Going to the bathroom;Medication Management;Transportation to appointments/community Current Services/Equipment Current Post-Acute Service(s): None Discharge Planning Patient Goal(s): Be able to go home, Independent living, General wellness [place] of Choice Explained: [place] of Choice Given: No Reason Not Given: No placements necessary Are you interested in bedside delivery of your medications? No Discharge Planning Participant(s): Patient Patient/Family Comments: Caregiver Assessment: Caregiver is ready, willing and able to meet the patient's needs as recommended by the inter-professional team: No Caregiver needed Transport at Discharge: Transportation Arrangements: Car Destination: Home Needs Prior to Discharge: Needs Prior to Discharge: To Be Determined;Discharge Prescriptions Post-Acute Discharge Plan: Patient is from home with spouse and 3 children. Living in a duplex. 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 -DME. +Driving. Uses [employer] for scripts. Unemployed. Admits to difficulties affording food at times. Resources will be provided to patient. Patient will transport self at discharge. +PCP +RX -DME Planned admission. No CM needs at this time. Will follow for transitional care planning. SIGNATURE: Anirudh Valles RN PATIENT NAME: Bertin Mcduffie DATE: November 03, 2023 TIME: 3:45 PM CONTACT #: [phone] [facility] 10-29-2023 Note HNO ID: [id number] Author: OZ TERRAZAS MD Service: ? Author Type: Physician Type: Progress Notes Filed: 10/29/2023 15:14 Note Text: Summary: Patient called [facility] The patient called the [facility] and left a message with front maker Deniz who conveyed the message to me. She reported that she is ready to do the EMU after last admission she had to leave early due to her baby. I will placed an abstract to repeat EMU. Please route this encounter to the EMU Scheduling Pool (P EMU) or PMU Scheduling Pool (P PMU) through LOS AND Follow up PHASE 1.0 AND 1.5 ORDER SYNOPSIS Patient: Bertin Mcduffie ([id number]) Best contact number: [phone] Insurance: Payor: [employer]ICA[employer] / Plan: [employer] / Product Type: Medicaid / Scheduling Team: Please call for adult patients: Nisha Vila ([phone]) Ashley Evans ([phone]) Xavier Grant ([phone]) Sumaya Musa([phone]) Janene Hurd([phone]) Please call for pediatric patients: Sumaya Musa ([phone]) Nisha Vila ([phone]) Ashley Evans ([phone]) Xavier Grant ([phone]),Jaenne Hurd([phone]) 10/29/2023 -- Admission Type EMU Adult Number of Days requested 5 Location [facility] (Adults only) Admit Priority Routine 10/29/2023 PURPOSE Patient Being Considered for Epilepsy Surgery? No VEEG recommended to assess seizure burden, address new AND concerning syymptom-sign complex, and/or clarify syndromic epilepsy diagnosis? Yes 10/29/2023 -- Sphenoidal monitoring No Electrode placement Standard Appointments and Tests EPIL VEEG ADMIT TO EMU/PMU Consultations None Please route this encounter to the EMU Scheduling pool (P EMU) or PMU Scheduling pool (P PMU) through LOS AND Follow up Scheduling coordinators: For all VNS patients being scheduled for GAVIN, please schedule VNS off/on office visits. [facility] 10-29-2023 History of Presen t illness Narrative Summary: Patient called [facility] The patient called the [facility] and left a message with front maker Deniz who conveyed the message to me. She reported that she is ready to do the EMU after last admission she had to leave early due to her baby. I will placed an abstract to repeat EMU. Please route this encounter to the EMU Scheduling Pool (P EMU) or PMU Scheduling Pool (P PMU) through LOS & Follow up PHASE 1.0 AND 1.5 ORDER SYNOPSIS Patient: Bertin Mcduffie ([id number]) Best contact number: [phone] Insurance: Payor: [facility] MEDICAID / Plan[place] [facility] [place] [facility] [email or web address] / Product Type: Medicaid / Scheduling Team: Please call for adult patients: Nisha Vila ([phone]) Ashley Evans ([phone]) Xavier Grant ([phone]) Sumaya Musa([phone]) Janene Hurd([phone]) Please call for pediatric patients: Sumaya Musa ([phone]) Nisha Vila ([phone]) Ashley Evans ([phone]) Xavier Grant ([phone]),Janene Hurd([phone]) 10/29/2023 -- Admission Type EMU Adult Number of Days requested 5 [facility] [place] (Adults only) Admit Priority Routine 10/29/2023 PURPOSE Patient Being Considered for Epilepsy Surgery? No VEEG recommended to assess seizure burden, address new & concerning syymptom-sign complex, and/or clarify syndromic epilepsy diagnosis? Yes 10/29/2023 -- Sphenoidal monitoring No Electrode placement Standard Appointments and Tests EPIL VEEG ADMIT TO EMU/PMU Consultations None Please route this encounter to the EMU Scheduling pool (P EMU) or PMU Scheduling pool (P PMU) through LOS & Follow up Scheduling coordinators: For all VNS patients being scheduled for GAVIN, please schedule VNS off/on office visits. documented in this encounter [facility] 10-27-2023 Note HNO ID: [id number] Author: SONAM TUCKER APRN.SURVEY TECHNOLOGIST Service: ? Author Type: Nurse Practitioner Type: Progress Notes Filed: 10/27/2023 13:58 Note Text: Subjective HPI Bertin Mcduffie is a 27 year old female who presents with 2 days of feeling light headed, off balance, headache, sore throat, chills, cold sweats, left ear pain, sharp intermittent pains in her joints and ribs, and dysuria. She has not had a fever at home. She believes LMP was one month ago, not sure, as periods have always been irregular. She did a test at home a week ago and it was negative. States she has some dysuria but only notices this when she gets out of the shower. Denies nausea or vomiting. Review of Systems Constitutional: Positive for chills. Negative for fever. HENT: Positive for congestion, ear pain (left) and sore throat. Respiratory: Negative for cough. Cardiovascular: Negative for chest pain. Genitourinary: Positive for dysuria. Musculoskeletal: Positive for myalgias. Neurological: Positive for dizziness, weakness and headaches. Negative for focal weakness. BP 128/70 Pulse 106 Temp 37.2 ?C (99 ?F) Resp 18 Wt 65 kg (143 lb 4.8 oz) LMP (LMP Unknown) SpO2 98% BMI 23.85 kg/m? PAST MEDICAL HISTORY Diagnosis Date Depression with anxiety Seizures (HCC) 06/15/2012 Seizures (HCC) 09/08/2023 No past surgical history on file. ALLERGIES Patient has no known allergies. MEDICATIONS sertraline (ZOLOFT) 50 mg tablet Take 1 tablet by mouth once daily cyclobenzaprine (FLEXERIL) 10 mg tablet Take 1 tablet by mouth three times a day as needed for muscle spasm. lamoTRIgine ER (LAMICTAL XR) 300 mg 24 hr tablet Take 1 tablet by mouth every morning. amoxicillin (AMOXIL) 500 mg capsule Take 1 capsule by mouth two times a day for 10 days. lurasidone (LATUDA) 40 mg tablet Take 80 mg by mouth once daily. (Patient not taking: Reported on 10/27/2023) VIT 10-IRON FUM-FOLIC ORAL Take by mouth. (Patient not taking: Reported on 10/27/2023) FAMILY HISTORY Problem Relation Age of Onset Seizures No Family History Social History Tobacco Use Smoking status: Former Types: Cigarettes Smokeless tobacco: Current Tobacco comments: vape Substance Use Topics Alcohol use: Not Currently Drug use: Never Objective Physical Exam Vitals and nursing note reviewed. Constitutional: General: She is not in acute distress. Appearance: Normal appearance. She is not ill-appearing. HENT: Right Ear: Tympanic membrane, ear canal and external ear normal. Left Ear: Tympanic membrane, ear canal and external ear normal. Nose: Nose normal. Mouth/Throat: Mouth: Mucous membranes are moist. Pharynx: Uvula midline. Posterior oropharyngeal erythema present. No oropharyngeal exudate. Cardiovascular: Rate and Rhythm: Normal rate and regular rhythm. Heart sounds: Normal heart sounds. Pulmonary: Effort: Pulmonary effort is normal. No respiratory distress. Breath sounds: Normal breath sounds. No wheezing or rales. Abdominal: General: There is no distension. Palpations: There is no mass. Tenderness: There is no abdominal tenderness. There is no right CVA tenderness, left CVA tenderness or guarding. Musculoskeletal: Cervical back: Neck supple. Lymphadenopathy: Cervical: No cervical adenopathy. Skin: General: Skin is warm and dry. Findings: No erythema or rash. Neurological: Mental Status: She is alert. ASSESSMENT/PLAN: 1. Sore throat - ICD9: 462, ICD10: J02.9 (primary diagnosis) - Group A strep molecular testing positive - STREP A MOLECULAR (POC) 2. Irregular periods - ICD9: 626.4, ICD10: N92.6 - HCG QUAL UR B/O-positive in office. 3. Dysuria - ICD9: 788.1, ICD10: R30.0 acute - UA positive for tramaine esterase, proteinuria, and ketones - Send urine for culture - Patient education for prevention given - UA DIP, URINE (POC) 4. Strep throat - ICD9: 034.0, ICD10: J02.0 - Amoxicillin for 10 days. - Discussed supportive care treatment with fluids, rest and analgesia. - The patient may also use warm salt water gargles, throat lozenges and/or OTC throat spray as needed. - Contagious dz precautions discussed- including considered contagious until on antibiotics for 24 hours - Call back if drooling, increased temperature, symptoms of dehydration and/or still sick in one week - AMOXICILLIN 500 MG CAPSULE 5. test positive - ICD9: V72.42, ICD10: Z32.01 - follow up with IMMIGRATION CASE MANAGER for first appointment. 6. Otalgia of left ear - ICD9: 388.70, ICD10: H92.02 -ear exam is normal today. - Follow-up with your PCP in 3-5 days if symptoms have not improved or sooner if symptoms worsen - Discussed red flags and need for immediate medical evaluation if any occur. - Discussed supportive care treatment with fluids, rest and analgesia. - Discussed expected course of illness Sonam Tucker APRN.[facility] 10-27-2023 History of Presen t illness Narrative Subjective HPI Bertin Mcduffie is a 27 year old female who presents with 2 days of feeling light headed, off balance, headache, sore throat, chills, cold sweats, left ear pain, sharp intermittent pains in her joints and ribs, and dysuria. She has not had a fever at home. She believes LMP was one month ago, not sure, as periods have always been irregular. She did a test at home a week ago and it was negative. States she has some dysuria but only notices this when she gets out of the shower. Denies nausea or vomiting. Review of Systems Constitutional: Positive for chills. Negative for fever. HENT: Positive for congestion, ear pain (left) and sore throat. Respiratory: Negative for cough. Cardiovascular: Negative for chest pain. Genitourinary: Positive for dysuria. Musculoskeletal: Positive for myalgias. Neurological: Positive for dizziness, weakness and headaches. Negative for focal weakness. BP 128/70 Pulse 106 Temp 37.2 C (99 F) Resp 18 Wt 65 kg (143 lb 4.8 oz) LMP (LMP Unknown) SpO2 98% BMI 23.85 kg/m PAST MEDICAL HISTORY Diagnosis Date Depression with anxiety Seizures ([facility]) 06/15/2012 Seizures ([facility]) 09/08/2023 No past surgical history on file. ALLERGIES Patient has no known allergies. MEDICATIONS sertraline (ZOLOFT) 50 mg tablet Take 1 tablet by mouth once daily cyclobenzaprine (FLEXERIL) 10 mg tablet Take 1 tablet by mouth three times a day as needed for muscle spasm. lamoTRIgine ER (LAMICTAL XR) 300 mg 24 hr tablet Take 1 tablet by mouth every morning. amoxicillin (AMOXIL) 500 mg capsule Take 1 capsule by mouth two times a day for 10 days. lurasidone (LATUDA) 40 mg tablet Take 80 mg by mouth once daily. (Patient not taking: Reported on 10/27/2023) VIT 10-IRON FUM-FOLIC ORAL Take by mouth. (Patient not taking: Reported on 10/27/2023) FAMILY HISTORY Problem Relation Age of Onset Seizures No Family History Social History Tobacco Use Smoking status: Former Types: Cigarettes Smokeless tobacco: Current Tobacco comments: vape Substance Use Topics Alcohol use: Not Currently Drug use: Never Objective Physical Exam Vitals and nursing note reviewed. Constitutional: General: She is not in acute distress. Appearance: Normal appearance. She is not ill-appearing. HENT: Right Ear: Tympanic membrane, ear canal and external ear normal. Left Ear: Tympanic membrane, ear canal and external ear normal. Nose: Nose normal. Mouth/Throat: Mouth: Mucous membranes are moist. Pharynx: Uvula midline. Posterior oropharyngeal erythema present. No oropharyngeal exudate. Cardiovascular: Rate and Rhythm: Normal rate and regular rhythm. Heart sounds: Normal heart sounds. Pulmonary: Effort: Pulmonary effort is normal. No respiratory distress. Breath sounds: Normal breath sounds. No wheezing or rales. Abdominal: General: There is no distension. Palpations: There is no mass. Tenderness: There is no abdominal tenderness. There is no right CVA tenderness, left CVA tenderness or guarding. Musculoskeletal: Cervical back: Neck supple. Lymphadenopathy: Cervical: No cervical adenopathy. Skin: General: Skin is warm and dry. Findings: No erythema or rash. Neurological: Mental Status: She is alert. ASSESSMENT/PLAN: 1. Sore throat - ICD9: 462, ICD10: J02.9 (primary diagnosis) - Group A strep molecular testing positive - STREP A MOLECULAR (POC) 2. Irregular periods - ICD9: 626.4, ICD10: N92.6 - HCG QUAL UR B/O-positive in office. 3. Dysuria - ICD9: 788.1, ICD10: R30.0 acute - UA positive for tramaine esterase, proteinuria, and ketones - Send urine for culture - Patient education for prevention given - UA DIP, URINE (POC) 4. Strep throat - ICD9: 034.0, ICD10: J02.0 - Amoxicillin for 10 days. - Discussed supportive care treatment with fluids, rest and analgesia. - The patient may also use warm salt water gargles, throat lozenges and/or OTC throat spray as needed. - Contagious dz precautions discussed- including considered contagious until on antibiotics for 24 hours - Call back if drooling, increased temperature, symptoms of dehydration and/or still sick in one week - AMOXICILLIN 500 MG CAPSULE 5. test positive - ICD9: V72.42, ICD10: Z32.01 - follow up with IMMIGRATION CASE MANAGER for first appointment. 6. Otalgia of left ear - ICD9: 388.70, ICD10: H92.02 -ear exam is normal today. - Follow-up with your PCP in 3-5 days if symptoms have not improved or sooner if symptoms worsen - Discussed red flags and need for immediate medical evaluation if any occur. - Discussed supportive care treatment with fluids, rest and analgesia. - Discussed expected course of illness Sonam Tucker APRN.SURVEY TECHNOLOGIST documented in this encounter [facility] 10-27-2023 Instructions Sonam Tucker APRN.SURVEY TECHNOLOGIST - 10/27/2023 1:46 PM EDT ASSESSMENT/PLAN: 1. Sore throat - ICD9: 462, ICD10: J02.9 (primary diagnosis) - Group A strep molecular testing positive - STREP A MOLECULAR (POC) 2. Irregular periods - ICD9: 626.4, ICD10: N92.6 - HCG QUAL UR B/O-positive in office. 3. Dysuria - ICD9: 788.1, ICD10: R30.0 acute - UA positive for tramaine esterase, proteinuria, and ketones - Send urine for culture - Patient education for prevention given - UA DIP, URINE (POC) 4. Strep throat - ICD9: 034.0, ICD10: J02.0 - Amoxicillin for 10 days. - Discussed supportive care treatment with fluids, rest and analgesia. - The patient may also use warm salt water gargles, throat lozenges and/or OTC throat spray as needed. - Contagious dz precautions discussed- including considered contagious until on antibiotics for 24 hours - Call back if drooling, increased temperature, symptoms of dehydration and/or still sick in one week - AMOXICILLIN 500 MG CAPSULE 5. test positive - ICD9: V72.42, ICD10: Z32.01 - follow up with IMMIGRATION CASE MANAGER for first appointment. 6. Otalgia of left ear - ICD9: 388.70, ICD10: H92.02 -ear exam is normal today. - Follow-up with your PCP in 3-5 days if symptoms have not improved or sooner if symptoms worsen - Discussed red flags and need for immediate medical evaluation if any occur. - Discussed supportive care treatment with fluids, rest and analgesia. - Discussed expected course of illness Sonam Tucker APRN.SURVEY TECHNOLOGIST documented in this encounter [facility] 10-19-2023 Telephone encounter Note Pt put through to scheduling to set up PT appointment. [facility] 10-19-2023 Miscellaneous Notes Pt put through to scheduling to set up PT appointment. documented in this encounter [facility] 09-24-2023 History of Presen t illness Narrative Radiology Service Progress Note PATIENT NAME: Bertin Mcduffie DATE OF SERVICE: September 24, 2023 TIME: 3:00 PM PATIENT IDENTITY VERIFICATION COMPLETED USING TWO (2) IDENTIFIERS: Name and Date of confirmed by patient verbally. FALL SCREENING: Has the patient had 2 falls in the last year or 1 fall with injury or currently using an Ambulatory Assistive Device (Walker, Cane, Wheelchair, Crutches, etc.)? No PATIENT GENDER DATA: Female. status: : No status: NO. PATIENT RELEVANT IMPLANT DATA REVIEWED: Yes PATIENT PRESENTS WITH AN IMPLANTABLE OR ATTACHED EPIC TRAINER: No RADIOLOGY DEPARTMENT: General X-ray: Exam(s) Completed: Pelvis X-Ray: Pelvis with Hip Right Lower Extremity X-Ray(s): Knee, AP / Lat / Tunne / Merchant Right PERIPHERAL IV DATA: Not applicable SIGNED BY: RT Jada(R) September 24, 2023 3:00 PM documented in this encounter [facility] 09-24-2023 Note HNO ID: [id number] Author: GABY NAZARIO RT(Debora) Service: ? Author Type: Financial Compliance Officer Type: Progress Notes Filed: 09/24/2023 15:17 Note Text: Radiology Service Progress Note PATIENT NAME: Bertin Mcduffie DATE OF SERVICE: September 24, 2023 TIME: 3:00 PM PATIENT IDENTITY VERIFICATION COMPLETED USING TWO (2) IDENTIFIERS: Name and Date of confirmed by patient verbally. FALL SCREENING: Has the patient had 2 falls in the last year or 1 fall with injury or currently using an Ambulatory Assistive Device (Walker, Cane, Wheelchair, Crutches, etc.)? No PATIENT GENDER DATA: Female. status: : No status: NO. PATIENT RELEVANT IMPLANT DATA REVIEWED: Yes PATIENT PRESENTS WITH AN IMPLANTABLE OR ATTACHED EPIC TRAINER: No RADIOLOGY DEPARTMENT: General X-ray: Exam(s) Completed: Pelvis X-Ray: Pelvis with Hip Right Lower Extremity X-Ray(s): Knee, AP / Lat / Tunne / Merchant Right PERIPHERAL IV DATA: Not applicable SIGNED BY: RT Jada(R) September 24, 2023 3:00 PM [facility] 09-14-2023 Note HNO ID: [id number] Author: HANNAH TENORIO RT(R) Service: Radiology Author Type: Technologist Type: Progress Notes Filed: 09/14/2023 12:18 Note Text: RADIOLOGY SERVICE PROGRESS NOTE DATE OF SERVICE: September 14, 2023 TIME OF SERVICE: 12:17pm EVENT: EXAM/PROCEDURE NOT COMPLETED - Exam rescheduled for Patient has a baby with her and nurse not available right away. Patient chose to come back another time for x-rays. ADDITIONAL EVENT DETAILS: N/A SIGNATURE: RT Marla(R) PATIENT NAME: Bertin Mcduffie DATE: September 14, 2023 TIME: 12:17 PM PAGER/CONTACT #: [facility] 09-14-2023 Note HNO ID: [id number] Author: ROSANA EVANS APRN.SURVEY TECHNOLOGIST Service: ? Author Type: Nurse Practitioner Type: Progress Notes Filed: 09/14/2023 12:33 Note Text: Chief Complaint Patient presents with: pain in rt hip and knee: Started about 6-7 months ago and has gotten worse HPI Bertin Mcduffie is a 27 year old female who presents here today for Above Complaints. Bertin is an established patient of Dr. Pelon DO and myself. Concerns today... R hip and knee pain x 6-7 months. Is becoming more constant pain. In the mornings it is worse or when sitting for long periods of time it will take 1-2 hours to calm down and be able to walk normally without discomfort. No known fall or injury. Pt also reports ongoing back pain that she has been seen in office for. X-rays done. Was told to start physical therapy but due to busy schedule, she never completed this. Now she is ready to do this since s/s worsening. Ibuprofen does help. Rotates between tylenol and ibuprofen. No other concerns or complaints. Past medical history, appointments, medications, allergies reviewed. Previous Medical History PAST MEDICAL HISTORY Diagnosis Date Depression with anxiety Seizures (HCC) 06/15/2012 Seizures (HCC) 09/08/2023 Previous Surgical History No past surgical history on file. Family History FAMILY HISTORY Problem Relation Age of Onset Seizures No Family History Patient Allergies ALLERGIES No Known Allergies Current Medications Current Outpatient Medications on File Prior to Visit Medication Sig sertraline (ZOLOFT) 50 mg tablet Take 1 tablet by mouth once daily lamoTRIgine ER (LAMICTAL XR) 300 mg 24 hr tablet Take 1 tablet by mouth every morning. VIT 10-IRON FUM-FOLIC ORAL Take by mouth. lurasidone (LATUDA) 40 mg tablet Take 80 mg by mouth once daily. folic acid 1 mg tablet Take 1 mg by mouth once daily. 3 mg once a day (Patient not taking: Reported on 09/14/2023) No current facility-administered medications on file prior to visit. Social History Social History Tobacco Use Smoking status: Former Types: Cigarettes Smokeless tobacco: Current Tobacco comments: vape Substance Use Topics Alcohol use: Not Currently Drug use: Never REVIEW OF SYSTEMS: as above Reviewed relevant PMHx, PSHx, Social Hx, current medications and allergies. Review of Symptoms REVIEW OF SYSTEMS See HPI. EXAM: BP 112/64 (BP Site: Left Arm, BP Position: Sitting, BP Cuff Size: Regular Adult) Pulse 64 Resp 14 Wt 69.1 kg (152 lb 6.4 oz) LMP (LMP Unknown) BMI 25.36 kg/m? General Appearance: Well appearing, alert, in no acute distress, well-hydrated, well nourished.. Skin: Skin color, texture, turgor normal, no suspicious rashes or lesions. Head: Normocephalic, no masses, lesions, tenderness or abnormalities. Extremities: No deformities, edema, skin discoloration, clubbing or cyanosis. Good capillary refill. , Positive findings: joint location: on right knee pain and painful movement, on right hip pain and painful movement. Musculoskeletal: No joint swelling, deformity, or tenderness. Peripheral Pulses: Normal, Capillary refill <2secs, strong peripheral pulses. Neurologic: Gait normal. Reflexes normal and symmetric. Sensation grossly intact.. Health Maintenance List HPV Vaccine(3 - 2-dose series) due on 06/16/2010 Pap Testing Never done Depression Assessment due on 06/15/2023 Covid-19 Vaccine( season) due on 09/13/2024 Influenza Vaccine(Season Ended) due on 02/14/2024 DTaP,Tdap,Td Vaccine(10 - Td or Tdap) due on 11/13/2032 Hepatitis C Screening Completed HIV Screening Completed Hepatitis B Vaccine Discontinued ASSESSMENT/PLAN: 1. Acute pain of right knee - ICD9: 719.46, ICD10: M25.561 (primary diagnosis) X-rays as ordered. Continue with rotating between otc tylenol and NSAID as needed. Flexeril as needed for severe discomfort. This has worked well in the past. Schedule with physical therapy. RICE therapy. - XR KNEE GENERAL 4V AP BOTH/PA BOTH/LAT/MERC RIGHT - XR HIP GENERAL 3V PELV/AP/LAT RIGHT - CYCLOBENZAPRINE 10 MG TABLET - CONSULT TO PHYSICAL THERAPY 2. Acute midline low back pain without sciatica - ICD9: 724.2, ICD10: M54.50 See above. - XR KNEE GENERAL 4V AP BOTH/PA BOTH/LAT/MERC RIGHT - XR HIP GENERAL 3V PELV/AP/LAT RIGHT - CYCLOBENZAPRINE 10 MG TABLET - CONSULT TO PHYSICAL THERAPY 3. Pain of right hip - ICD9: 719.45, ICD10: M25.551 See above. - XR KNEE GENERAL 4V AP BOTH/PA BOTH/LAT/MERC RIGHT - XR HIP GENERAL 3V PELV/AP/LAT RIGHT - CYCLOBENZAPRINE 10 MG TABLET - CONSULT TO PHYSICAL THERAPY RTO as needed if no improvement. Prescription instructions reviewed with patient as applicable. Potential red flag symptoms discussed with the patient. Reviewed appropriate action plan to take if red flag symptoms occur. Patient agreeable to treatment plan. Rosana Parada, OBGYN NURSE.SURVEY TECHNOLOGIST [address], [place] [address] (more content not included)... [facility] 09-14-2023 History of Presen t illness Narrative Chief Complaint Patient presents with: pain in rt hip and knee: Started about 6-7 months ago and has gotten worse HPI Bertin Mcduffie is a 27 year old female who presents here today for Above Complaints. Bertin is an established patient of Dr. Bird, DO and myself. Concerns today... R hip and knee pain x 6-7 months. Is becoming more constant pain. In the mornings it is worse or when sitting for long periods of time it will take 1-2 hours to calm down and be able to walk normally without discomfort. No known fall or injury. Pt also reports ongoing back pain that she has been seen in office for. X-rays done. Was told to start physical therapy but due to busy schedule, she never completed this. Now she is ready to do this since s/s worsening. Ibuprofen does help. Rotates between tylenol and ibuprofen. No other concerns or complaints. Past medical history, appointments, medications, allergies reviewed. Previous Medical History PAST MEDICAL HISTORY Diagnosis Date Depression with anxiety Seizures ([facility]) 06/15/2012 Seizures ([facility]) 09/08/2023 Previous Surgical History No past surgical history on file. Family History FAMILY HISTORY Problem Relation Age of Onset Seizures No Family History Patient Allergies ALLERGIES No Known Allergies Current Medications Current Outpatient Medications on File Prior to Visit Medication Sig sertraline (ZOLOFT) 50 mg tablet Take 1 tablet by mouth once daily lamoTRIgine ER (LAMICTAL XR) 300 mg 24 hr tablet Take 1 tablet by mouth every morning. VIT 10-IRON FUM-FOLIC ORAL Take by mouth. lurasidone (LATUDA) 40 mg tablet Take 80 mg by mouth once daily. folic acid 1 mg tablet Take 1 mg by mouth once daily. 3 mg once a day (Patient not taking: Reported on 09/14/2023) No current facility-administered medications on file prior to visit. Social History Social History Tobacco Use Smoking status: Former Types: Cigarettes Smokeless tobacco: Current Tobacco comments: vape Substance Use Topics Alcohol use: Not Currently Drug use: Never REVIEW OF SYSTEMS: as above Reviewed relevant PMHx, PSHx, Social Hx, current medications and allergies. Review of Symptoms REVIEW OF SYSTEMS See HPI. EXAM: BP 112/64 (BP Site: Left Arm, BP Position: Sitting, BP Cuff Size: Regular Adult) Pulse 64 Resp 14 Wt 69.1 kg (152 lb 6.4 oz) LMP (LMP Unknown) BMI 25.36 kg/m General Appearance: Well appearing, alert, in no acute distress, well-hydrated, well nourished.. Skin: Skin color, texture, turgor normal, no suspicious rashes or lesions. Head: Normocephalic, no masses, lesions, tenderness or abnormalities. Extremities: No deformities, edema, skin discoloration, clubbing or cyanosis. Good capillary refill. , Positive findings: joint location: on right knee pain and painful movement, on right hip pain and painful movement. Musculoskeletal: No joint swelling, deformity, or tenderness. Peripheral Pulses: Normal, Capillary refill <2secs, strong peripheral pulses. Neurologic: Gait normal. Reflexes normal and symmetric. Sensation grossly intact.. Health Maintenance List HPV Vaccine(3 - 2-dose series) due on 06/16/2010 Pap Testing Never done Depression Assessment due on 06/15/2023 Covid-19 Vaccine(2022- season) due on 09/13/2024 Influenza Vaccine(Season Ended) due on 02/14/2024 DTaP,Tdap,Td Vaccine(10 - Td or Tdap) due on 11/13/2032 Hepatitis C Screening Completed HIV Screening Completed Hepatitis B Vaccine Discontinued ASSESSMENT/PLAN: 1. Acute pain of right knee - ICD9: 719.46, ICD10: M25.561 (primary diagnosis) X-rays as ordered. Continue with rotating between otc tylenol and NSAID as needed. Flexeril as needed for severe discomfort. This has worked well in the past. Schedule with physical therapy. RICE therapy. - XR KNEE GENERAL 4V AP BOTH/PA BOTH/LAT/MERC RIGHT - XR HIP GENERAL 3V PELV/AP/LAT RIGHT - CYCLOBENZAPRINE 10 MG TABLET - CONSULT TO PHYSICAL THERAPY 2. Acute midline low back pain without sciatica - ICD9: 724.2, ICD10: M54.50 See above. - XR KNEE GENERAL 4V AP BOTH/PA BOTH/LAT/MERC RIGHT - XR HIP GENERAL 3V PELV/AP/LAT RIGHT - CYCLOBENZAPRINE 10 MG TABLET - CONSULT TO PHYSICAL THERAPY 3. Pain of right hip - ICD9: 719.45, ICD10: M25.551 See above. - XR KNEE GENERAL 4V AP BOTH/PA BOTH/LAT/MERC RIGHT - XR HIP GENERAL 3V PELV/AP/LAT RIGHT - CYCLOBENZAPRINE 10 MG TABLET - CONSULT TO PHYSICAL THERAPY RTO as needed if no improvement. Prescription instructions reviewed with patient as applicable. Potential red flag symptoms discussed with the patient. Reviewed appropriate action plan to take if red flag symptoms occur. Patient agreeable to treatment plan. Rosana aPrada APRN.SURVEY TECHNOLOGIST [address] [place] [address] documented in this encounter [facility] 09-14-2023 Miscellaneous Notes Patient has been identified by name and date of : Patient phones for refill(s): Requested Prescriptions Pending Prescriptions Disp Refills sertraline (ZOLOFT) 50 mg tablet [Pharmacy Med Name: Sertraline HCl 50 MG Oral Tablet] 90 tablet 0 Sig: Take 1 tablet by mouth once daily Date of last office visit in primary care: 03/11/2023 Date of next office visit in primary care: 09/14/2023 Please advise. Thank you. Kody Ng LPN. documented in this encounter [facility] 09-09-2023 Note HNO ID: [id number] Author: CHASE LUNSFORD RN Service: ? Author Type: Registered Nurse Type: Progress Notes Filed: 09/08/2023 22:32 Note Text: Patient called out asking for her nurse. When I walked in the room, I saw patient crying really hard , and asked what was wrong? Patient stated that she has a 9 month old baby at home and that her called and told her that the baby hasn't eaten or took any naps all day since she has been gone. Patient is worried that the baby may become dehydrated or get sick so she is wanting to leave. Patient stated that there isn't anyone available to bring the baby here to see her, so she is going to sign out and will figure out when she can try to do this again. [facility] 09-08-2023 Note HNO ID: [id number] Author: ANIRUDH VALLES RN Service: Care Management Author Type: Registered Nurse Type: Care Mgt Initial Assessment Filed: 09/08/2023 13:59 Note Text: CARE MANAGEMENT: ASSESSMENT AND DISCHARGE PLAN SERVICE DATE: September 08, 2023 SERVICE TIME: 1:47 PM PCP: Carlos Bird DO Primary Contact: Extended Emergency Contact Information Primary Emergency Contact: Beau Chandler Address: [address] [place], [place] [id number] [place] [address] Mobile Relation: Spouse Secondary Emergency Contact: Halle Osorio Address: [address] [place] [address] [facility] Mobile Relation: Mother Admission Status: Inpatient Insurance Provider: [facility] MEDICAID Discharge Planning requested by: Per Department Practice Potential Transition Plans No Services Indicated;To Be Determined;Home Advance Directives Current Advance Directive: None Accountant Clerk Attempted to Assist with AD Completion: Yes Action: Education Provided Current Living Arrangements and Support Lives with: Children, Spouse/significant other Type of Residence: Private Residence (House) Does the patient have to climb stairs at home?: Yes;stairs outside the home;stairs within the home Support: Family members, Friends/neighbors, Children, Spouse/significant other How do you manage to accomplish the following: Independent: Ambulation;Bathe/Shower;Meals/Me al Prep;Dress;Going to the bathroom;Medication Management;Transportation to appointments/community Current Services/Equipment Current Post-Acute Service(s): None Discharge Planning Patient Goal(s): General wellness, Be able to go home Clare of Choice Explained: Clare of Choice Given: No Reason Not Given: No placements necessary Are you interested in bedside delivery of your medications? No Discharge Planning Participant(s): Patient Patient/Family Comments: Caregiver Assessment: Caregiver is ready, willing and able to meet the patient's needs as recommended by the inter-professional team: No Caregiver needed Transport at Discharge: Transportation Arrangements: Car Destination: Home Needs Prior to Discharge: Needs Prior to Discharge: To Be Determined;Discharge Prescriptions Post-Acute Discharge Plan: Patient is from home with spouse and children. Living in a duplex. Uses [employer] for scripts. 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 +Driving. -DME. Unemployed. Patient admits to having difficulties affording medications and food. Admits to using food pantry. A printed street card for [facility] will be given to patient for resources. Patient drove self to [facility] and will transport self at discharge. +PCP +RX -DME Will follow for transitional care planning. SIGNATURE: Anirudh Valles RN PATIENT NAME: Bertin Cortezf DATE: September 08, 2023 TIME: 1:47 PM CONTACT #: [phone] [facility] 09-08-2023 Note HNO ID: [id number] Author: SIRISHA ARCE RN Service: PICC Team Author Type: Registered Nurse Type: Progress Notes Filed: 09/08/2023 11:33 Note Text: PICC/VASCULAR ACCESS PROGRESS NOTE SERVICE DATE: 09/08/2023 SERVICE TIME: 1125 Procedure for placement of intravenous catheter with use of ultrasound guidance and need for catheter explained to patient with verbal understanding given by patient. Following hospital protocol, a 20g 2.25inch Bard AccuCath catheter was sterilely placed using ultrasound guidance to right upper arm without difficulty on the first attempt. Catheter with brisk blood return and flushes easily with 10cc normal saline. Catheter capped. StatLock stabilization device applied. Site dressing per hospital policy. Patient tolerated procedure well. SIGNATURE: Sirisha Arce RN PATIENT NAME: Bertin Cortezf DATE: September 08, 2023 TIME: 11:32 AM PAGER/CONTACT #: [phone] [facility] 04-01-2023 Miscellaneous Notes Images from the original note were not included. documented in this encounter [facility] 03-30-2023 Miscellaneous Notes Addended by: OZ TERRAZAS on: 03/30/2023 10:23 AM Modules accepted: Orders documented in this encounter [facility] 03-30-2023 History of Presen t illness Narrative Please route this encounter to the EMU Scheduling Pool (P EMU) or PMU Scheduling Pool (P PMU) through LOS & Follow up PHASE 1.0 AND 1.5 ORDER SYNOPSIS Patient: Bertin Mcduffie ([id number]) Best contact number: [phone] Insurance: No coverage found. Scheduling Team: Please call for adult patients: Nisha Vila ([phone]) Ashley Evans ([phone]) Xavier Grant ([phone]) Sumaya Musa([phone]) Janene Hurd([phone]) Please call for pediatric patients: Sumaya Musa ([phone]) Nisha Vila ([phone]) Ashley Evans ([phone]) Xavier Grant ([phone]),Janene Hurd([phone]) 03/30/2023 Admission Type EMU Adult Number of Days requested 5 Location [facility] (Adults only) Admit Priority Routine PURPOSE 03/30/2023 Patient Being Considered for Epilepsy Surgery? No VEEG recommended to assess seizure burden, address new & concerning syymptom-sign complex, and/or clarify syndromic epilepsy diagnosis? No 03/30/2023 Sphenoidal monitoring No Electrode placement Standard Appointments and Tests EPIL VEEG ADMIT TO EMU/PMU Consultations CONSULT TO NEUROLOGY Epilepsy Center CONSULT TO NEUROLOGY Epilepsy Center Please route this encounter to the EMU Scheduling pool (P EMU) or PMU Scheduling pool (P PMU) through LOS & Follow up Scheduling coordinators: For all VNS patients being scheduled for G[facility], please schedule VNS off/on office visits. [facility] Patient Name: Bertin TAMAYO Date of : 1995 Referring Provider: SELF INITIAL EPILEPSY CLINIC NOTE 03/30/2023 9:00 AM CHIEF COMPLAINT: Epilepsy (Patient blanks out, most recently 3 weeks ago, prior to that was last summer, patient is able to anticipate onset of episodes,) HISTORY OF PRESENT ILLNESS Ms. Mcduffie is a 27 year old right-handed female seen in [facility] for initial consultation. At today's visit, the patient is accompanied by: , new born son, child in carrier Handedness: right-handed Age of onset: 17 years Seizure History and Evolution 27 year old woman presents to establish care for epilepsy. Seizures started at age 17 years. They were uncontrolled and one times she had three in a row. She denied any family history of seizures, TBI, meningitis, or febrile seizures. She continues to have seizures. The last three were 03/11/23, December 2021, and 2-3 years before 2021. The last one on 03/11/23 was attributed to missing two days of medications. Her has witnessed one of them. She will look like a zombie staring. She will fall and is motionless. No convulsion. She is unresponsive when stimulated. It will last 5-10 minutes. She has no recall afterward. No TB or UI. She has an aura of nausea, hot/cold feeling, dizziness, stomach turning, and vision becomes hazy. She cannot hear and her vision will turn white before passing out. She was told these are petit mal and another point called them stress induced. She had a concussion as a result of falling off the stairs at age 18 years. She has been on PB, LEV, and now takes LTG ER. She reports being on another medication that she could not recall despite listing several medications. No reports of any side effects like rash from these medications. She had a three day home ambulatory EEG in [address] Regan but she does not know the results. Total # of Current Anti-seizure Medications: 1 Side Effects to Current Anti-seizure Medications: none Seizure Frequency at First Visit: 1 per year Longest Seizure-free Interval: 2 years Number of seizure types: 1 Hx of generalized tonic-clonic seizures: No Tongue bite: No Urine or Bowel Incontinence: No Triggers: stress, missing medication Postictal Deficits: No Memory complaints: none Status Epilepticus or clusters: No Postictal Agitation: No Significant Injuries from Seizures: concussion at age 18 years Seizure-related driving accidents: No Driving: No Lives Alone: No ED Visits in Last 3 Months: Yes Hospitalizations in Last 3 Months: No Highest Level of Education: High school graduate (includes GED) 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 She cannot hear and her vision will turn white before passing out Description: Her has witnessed one of them. She will look like a zombie staring. She will fall and is motionless. No convulsion. She is unresponsive when stimulated. It will last 5-10 minutes. She has no recall afterward. No TB or UI. Loss of awareness: Duration: Frequency: Last occurred: yes longer than 10 minutes 1 per year March 11 2023 Patient Entered Data: EPILEPSY SCORE 01/29/2023 9:55 PM 01/29/2023 9:53 PM 09/16/2022 11:07 AM PHQ-9 SCORE - 20 [Severe Depression] 20 [Severe Depression] SARMAD 2 SCORE - - - SARMAD 7 SCORE 12 [Moderate Anxiety Disorder] - - QOLIE-10 SCORE (0=worst; 100=best QoL - higher scores represent better function) - - - LSSS SCORE (0- no seizures 100- most severe possible seizures) - - - C-SSRS SCREEN - - - On average, how many hours of sleep do you get in a 24-hour period? - - - PROMIS Sleep Disturbance T-SCORE - - - Have you been diagnosed with Sleep Apnea? - - - Seizure risk factors: Brain Tumor No CUSTOMER SUCCESS DIRECTOR Infections No Developmental Delay No Family history of seizures No Febrile Seizure No Complications No Stroke No Traumatic Brain Injury No Previous Epilepsy Evaluations 11/25/13 - MRI BRAIN WO - 1. NORMAL BRAIN MRI Other caregivers: Primary Care Provider: Carlos Bird, DO Current Outpatient Medications Medication Sig busPIRone (BUSPAR) 15 mg tablet Take 1 tablet by mouth two times a day. citalopram (CELEXA) 20 mg tablet cyclobenzaprine (FLEXERIL) 10 mg tablet Take 1 tablet by mouth three times daily as needed for muscle spasm. folic acid 1 mg tablet Take 1 mg by mouth once daily. 3 mg once a day lamoTRIgine ER (LAMICTAL XR) 300 mg 24 hr tablet Take 1 tablet by mouth every morning. lurasidone (LATUDA) 40 mg tablet VIT 10-IRON FUM-FOLIC ORAL Take by mouth. sertraline (ZOLOFT) 50 mg tablet Take 1 tablet by mouth once daily. No current facility-administered medications for this visit. ALLERGIES No Known Allergies PAST MEDICAL HISTORY Diagnosis Date Depression with anxiety Seizures ([facility]) 06/15/2012 No past surgical history on file. FAMILY HISTORY Problem Relation Age of Onset Seizures No Family History SOCIAL HISTORY: -Lives in [place], [place] -Patient lives alone? 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 No Review of Systems All other systems reviewed and are negative. VITAL SIGNS: BP 104/66 (BP Site: Left Arm, BP Position: Sitting, BP Cuff Size: Extra Large Adult) Pulse 88 Ht 165.1 cm (5' 5) Wt 72.6 kg (160 lb) LMP (LMP Unknown) SpO2 97% Yes BMI 26.63 kg/m Neurological Exam Mental Status Alert, fully oriented, attentive, with normal cognition, memory, speech and affect. Cranial Nerves Visual iverson intact. Pupils reactive. Extraocular movements conjugate and full. No ptosis. No nystagmus. Facial sensation intact. Face symmetric and strong. Palate and tongue normal. XI normal. Motor Examination and Coordination Distance Motor Examination Arms: Well-coordinated symmetrical strong antigravity movements of both arms. Raises arms well above head. Manipulates phone and small objects well. No drift. No tremor or adventitious movements. No dysmetria on finger-nose testing. No apparent muscle atrophy or deformity/contracture. Legs: Arises easily. No asymmetry of movements. No apparent dysmetria. No apparent muscle atrophy or deformity/contracture. Reflexes Not examined, distance exam Sensation Not examined Gait Arises easily. Casual gait and Romberg are normal. IMPRESSION: 27 year old woman presents with recurrent events of staring preceded by an aura. No history of convulsions. History is suggestive of focal epilepsy. Prior records of MRI brain show it is normal. Exam is normal. She had an EEG in [address] with unknown results. She had an episode on 03/11/23 after missing two days of medication. She continues to have seizures 1-2 times per year despite compliance. She has depression and anxiety without SI. No episodes in sleep. No memory issues. Discussed EMU admission and would like to pursue it in 2-3 months when she is able to leave her new born at home with someone. She is not driving after last seizure on 03/11/23. The patient's compliance with therapy has been: Reasonable DIAGNOSIS SUMMARY Paroxysmal Events Seizures: 1. 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 Regan office done in 2019 or 2020 - EMU in 2-3 months to clarify diagnosis - return after EMU Data reviewed as above including: electronic medical record Testing Ordered Diagnostic epilepsy monitoring unit admission (see separate abstract on this date) Education The following issues were discussed with the patient on this visit and written instructions provided as below- Seizure precautions and safety, seizure first aide, when to seek emergency care. Counseling was provided to the patient that missed medications, addition of some new medications, use of alcohol or other substances, and sleep deprivation can lower the seizure threshold. Patient was advised to not drive until released by a physician. I discussed the risk of depression and psychological comorbidities in patients with epilepsy and when to seek help as well as the black box warning of all antiepileptic medications which can increase risk for suicidality. Women's health issues were addressed this visit- Patient was advised to take folic acid daily. Importance of contraception and potential teratogenicty of antiepileptic medications was discussed. Interaction of her medication with OCP was addressed. Patient was given my clinic contact information. - Educated about LTG and how its levels drop during and the need to follow up with a neurologist to monitor levels - Educated about LTG interaction with hormonal contraceptives making them less effective; recommended discussion of IUDs with OB Medical Management Folic Acid supplementation The possibility of serious and adverse reactions were discussed in detail as well as proper use of medication. I discussed that not taking this medication as directed could worsen seizures and can be dangerous. I discussed the risks, benefits and alternatives of the medical plan with the patient. Questions were answered. The patient agreed with the plan as discussed. FOLLOW-UP: Return for after EMU. I spent a total of 60 minutes on the date of the service which included: preparing to see the patient [id number] patient care completing clinical documentation obtaining and/or reviewing separately obtained history performing a medically appropriate examination counseling and educating the patient/family/caregiver ordering medications, tests, or procedures communicating results to the patient/family/caregiver Oz Terrazas MD cc: Primary Care Physician: Carlos Bird DO [id number] [facility] [id number] Referring: SELF Phone: N/A Fax: Patient: Ms. Bertin Mcduffie [address] [facility] [address] documented in this encounter [facility] 03-13-2023 Miscellaneous Notes Patient is schedule on 03-30-2023 Pt read message at 12:18 PM on 03/13/2023 with no response. No appointment scheduled with the epilepsy clinic at this time. Phone number provided. Appointment with Nidia has been cancelled. Nothing further at this time. Belgica De Leon LPN [facility] message sent to patient. Belgica De Leon LPN Phone call placed patient advised : Needs to see neurologist that specializes in seizures and epilepsy. Please see who has availability that does treat seizures. Needs seen kiya. Thank you, Rosana Evans APRN.SURVEY TECHNOLOGIST Scheduling phone number on 03/12/2023 given to patient [phone], requested information to be sent as a [employer] message. Charisse Zamora LPN Needs to see neurologist that specializes in seizures and epilepsy. Please see who has availability that does treat seizures. Needs seen kiya. Thank you, Rosana Evans APRN.ALEX Patient returned call and given message below. Patient asking note be sent to Rosana, asking where is the epilepsy clinic. Patient thought she would see a neurologist. Please clarify for patient. Patient did not want to be transferred to a [facility] at this time. TC to pt with no answer, left a VM to return call. Please see below. Belgica De Leon LPN Pt has appointment with Nidia Baugh PA-C 03-18-23 for seizures. The consult is specifically for the epilepsy clinic, Nidia is a general neurologist and does not treat or manage epilepsy. This patient will need to be rescheduled at the epilepsy clinic. Belgica De Leon LPN documented in this encounter [facility] 02-04-2023 History of Presen t illness Narrative Radiology Service Progress Note PATIENT NAME: Bertin Mcduffie DATE OF SERVICE: February 04, 2023 TIME: 2:07 PM PATIENT IDENTITY VERIFICATION COMPLETED USING TWO (2) IDENTIFIERS: Name and Date of confirmed by patient verbally. FALL SCREENING: Has the patient had 2 falls in the last year or 1 fall with injury or currently using an Ambulatory Assistive Device (Walker, Cane, Wheelchair, Crutches, etc.)? No PATIENT GENDER DATA: Female. status: : No status: NO. PATIENT RELEVANT IMPLANT DATA REVIEWED: Yes RADIOLOGY DEPARTMENT: General X-ray: Exam(s) Completed: Spine X-Ray(s): Thoracic and Lumbar AP / LAT / L5-S1 Pelvis X-Ray: Pelvis with Hip Left PERIPHERAL IV DATA: Not applicable SIGNED BY: RT Marla(R) February 04, 2023 2:07 PM documented in this encounter [facility] 02-04-2023 History of Presen t illness Narrative Chief Complaint Patient presents with: Follow Up: 6 month f/up and would like to talk about back HPI Bertin Mcduffie is a 27 year old female who presents here today for Above Complaints. Bertin is an established patient of Dr. Bird, DO and myself. Concerns today.. Numerous complaints. Discussed as much as we could in limited time frame of appointment. Back pain -- Pinching in back x 6 months or longer, during and prior. Standing for more than 5 minutes leads to shooting pain up spine. Feels muscle spasms in lower to mid back intermittently. Pain is worse in back with deep breath. Pain also worse with bending over. Worse since recent epidural. Baby is 3 months old. Most recent x-rays of back were in 2013. Ibuprofen gives some relief. No relief with tylenol. Hip pain --- L hip pain with certain positions -- worse with siting with legs crossed. Feels like it locks up and/or pops out of place. Wrist pain-- Mother with carpal tunnel syndrome, had surgery to correct. Pain bilaterally in both wrists. Worse at night. Numbness/tingling to hands. Sometimes radiates up arm to elbow. Reports she is known to sleep with wrists bent under chin. Clenched jaw -- At night and during day. Used to wear OTC mouth guard at night. Wakes up with tension headache. Some clicking in jaw occasionally - not bothersome. Nausea and burping -- Increase in burping, especially in the evenings/nighttime. Nausea frequently with eating. Makes her feel sick to stomach but never vomits. Leads her to eat less, no appetite anymore. She will only eat one meal per day, which is dinner. Sometimes she will over indulgence in food and eat way too much. Has lost 30lbs + since post-, she only gained 15 lbs while . Pt denies any concerns with appearance, purging, or purposely trying to lose weight or create a calorie deficit. Denies any concerns with mood or stress. Cut out dairy d/t x 3 weeks and no improvement in symptoms for herself or baby. Past medical history, appointments, medications, allergies reviewed. Previous Medical History PAST MEDICAL HISTORY Diagnosis Date Seizures (HCC) 2012 Previous Surgical History No past surgical history on file. Family History No family history on file. Patient Allergies ALLERGIES No Known Allergies Current Medications Current Outpatient Medications on File Prior to Visit Medication Sig folic acid 1 mg tablet Take 1 mg by mouth once daily. 3 mg once a day VIT 10-IRON FUM-FOLIC ORAL Take by mouth. lamoTRIgine (LAMICTAL) 200 mg tablet Take 100 mg by mouth once daily. 300mg once a day busPIRone (BUSPAR) 10 mg tablet Take 20 mg by mouth twice daily. No current facility-administered medications on file prior to visit. Social History Social History Tobacco Use Smoking status: Former Types: Cigarettes Smokeless tobacco: Current Tobacco comments: vape REVIEW OF SYSTEMS: as above Reviewed relevant PMHx, PSHx, Social Hx, current medications and allergies. Review of Symptoms REVIEW OF SYSTEMS See HPI. EXAM: BP 112/60 (BP Site: Left Arm, BP Position: Sitting, BP Cuff Size: Regular Adult) Pulse 72 Resp 12 Wt 80.2 kg (176 lb 12.8 oz) LMP 01/16/2014 BMI 28.76 kg/m General Appearance: Well appearing, alert, in no acute distress, well-hydrated, well nourished.. Skin: Skin color, texture, turgor normal, no suspicious rashes or lesions. Head: Normocephalic, no masses, lesions, tenderness or abnormalities. Back:no pain to palpation of vertebrae, good flexion and extension, good range of motion, no muscle tenderness, reflexes are 2+ and symmetric, motor and sensory appear to be normal, negative SLR test, no evidence of scoliosis Lungs: Lungs clear to auscultation. No wheezing, rhonchi, rales.. Heart: RRR without murmur, gallop, or rubs. No ectopy. Abdomen: Normal abdominal exam, Abdomen soft, non-tender. Bowel sounds normal. No masses, organomegaly. Extremities: No deformities, edema, skin discoloration, clubbing or cyanosis. Good capillary refill. . Musculoskeletal: No joint swelling, deformity, or tenderness. Peripheral Pulses: Normal. Neurologic: Gait normal. Reflexes normal and symmetric. Sensation grossly intact.. Health Maintenance List DTAP,TDAP,TD(7 - Td or Tdap) due on 12/15/2019 PAP TESTING due on 08/04/2023 HPV VACCINE(3 - 2-dose series) due on 08/04/2023 COVID-19 VACCINE(1) due on 08/04/2023 INFLUENZA(1) due on 02/13/2023 DEPRESSION ASSESSMENT Completed HEPATITIS C SCREENING Completed HIV SCREENING Completed HEPATITIS B Discontinued ASSESSMENT/PLAN: 1. Acute midline low back pain without sciatica - ICD9: 724.2, ICD10: M54.50 (primary diagnosis) X-ray lumbar and thoracic spine, compare to priors in 2014. Flexeril TID prn for back spasms -- discussed safe. - XR LUMBAR GENERAL 3V AP/LAT/L5-S1 - XR THORACIC GENERAL 3V AP/LAT/SWIMMERS - CYCLOBENZAPRINE 10 MG TABLET 2. Pain of left hip - ICD9: 719.45, ICD10: M25.552 X-ray hip to rule out injury or alignment issues. OTC NSAID prn. - XR HIP GENERAL 3V PELV/AP/LAT LEFT 3. Burping - ICD9: 787.3, ICD10: R14.2 Start omeprazole 20 mg daily. Discussed reflux signs and symptoms. Mother with dx of GERD as well. If no improvement, may need consider possible stomach ulcer? - OMEPRAZOLE 20 MG CAPSULE,DELAYED RELEASE 4. Nausea - ICD9: 787.02, ICD10: R11.0 Start omeprazole 20 mg daily. Discussed reflux signs and symptoms. Mother with dx of GERD as well. If no improvement, may need consider possible stomach ulcer? - OMEPRAZOLE 20 MG CAPSULE,DELAYED RELEASE 5. Pain in both wrists - ICD9: 719.43, ICD10: M25.531, M25.532 Likely carpal tunnel. Continue OTC NSAID and wrist braces bilaterally at night. Discussed EMG to dx if no improvement and considering possible intervention of surgery. 6. Jaw pain - ICD9: 784.92, ICD10: R68.84 Try to wear mouth guard again at night. OTC NSAID for discomfort. Flexeril prn can also help relax jaw and improve tension headaches symptoms associated. 7. Tension headache - ICD9: 307.81, ICD10: G44.209 See above. RTO in 1-2 months, sooner if needed, to reassess above numerous complaints. Prescription instructions reviewed with patient as applicable. Potential red flag symptoms discussed with the patient. Reviewed appropriate action plan to take if red flag symptoms occur. Patient agreeable to treatment plan. Rosana Parada APRN.SURVEY TECHNOLOGIST [address] [place] [address] documented in this encounter [facility] 12-19-2022 History of Presen t illness Narrative This note was created using CN Creativeriter. Subjective Bertin Mcduffie is a 26 year old female. HPI Patient presents with bilateral breast pain off and on and redness off and on over the past 2 weeks. She states her baby currently has thrush and is being treated. She has been doing mostly pumping since he has had thrush and pumps for 25 minutes every 2 hours. She has been told by the baby's physician to get checked for thrush since she was having some pain. She denies any rash. Denies cracked or painful nipples. No fever. A lot of times the breast pain gets better after letdown and she empties the breasts. Review of Systems Genitourinary: Breast pain All other systems reviewed and are negative. PAST MEDICAL HISTORY Diagnosis Date Seizures ([facility]) 2012 Current Outpatient Medications Medication Sig Dispense Refill folic acid 1 mg tablet Take 1 mg by mouth once daily. 3 mg once a day VIT 10-IRON FUM-FOLIC ORAL Take by mouth. lamoTRIgine (LAMICTAL) 200 mg tablet Take 100 mg by mouth once daily. 300mg once a day busPIRone (BUSPAR) 10 mg tablet Take 20 mg by mouth twice daily. No current facility-administered medications for this visit. No past surgical history on file. No family history on file. Social History Tobacco Use Smoking status: Former Types: Cigarettes Smokeless tobacco: Current Tobacco comments: vape Objective BP 122/68 Pulse 95 Temp 36.6 C (97.9 F) (Temporal) Resp 18 Wt 86.1 kg (189 lb 12.8 oz) LMP 01/16/2014 SpO2 97% Yes BMI 30.87 kg/m Physical Exam Vitals reviewed. Constitutional: Appearance: Normal appearance. HENT: Head: Normocephalic and atraumatic. Chest: Comments: No engorgement or clogged ducts palpated on exam of either breast. No cracked nipples or rash around the areola or other breast tissue. No erythema of the breast or sign of mastitis. Neurological: Mental Status: She is alert. Assessment and Plan ASSESSMENT/PLAN: 1. Pain of breast during - ICD9: 676.34, 611.71, ICD10: O92.29 Patient likely having clogged ducts off and on. None appreciated on exam today. No sign of fungal infection of the skin of the breast. Discussed continuing pumping every 2-3 hours and may try warm compress for the clogged ducts if they recur. Red flags to be seen again discussed. Patient agreeable. Shelby Buenrostro PA-C documented in this encounter [facility] 11-18-2022 Hospital Discharg e instructions Patient Education 11/18/2022 13:32:01 7 - Labor and Delivery Outpatient Instructions (CUSTOM) [facility] HOME-GOING INSTRUCTIONS _X_ You are to follow up with your physician as scheduled ACTIVITY ___ Bedrest _X__Activity as tolerated ___ No work/school for ___ days. ___Other PRESCRIPTION GIVEN ___Yes NAUSEA/VOMITING ___ Take small, frequent amounts of clear liquids. Avoid fruit juices and milk. ___ Increase fluid intake to a minimum of 8 ounces of fluid every hour while awake. ___ Soft diet. Rice, crackers, bananas, Jell-O, cooked carrots, applesauce. ___ [place] diet. Avoid caffeine, chocolate, alcohol, spiced/greasy foods. URINARY TRACT INFECTION ___ Drink 8-12 glasses of water every day. ___ Urinate frequently; do not limit fluids to reduce frequency of urination. ___ Call your physician if burning and frequency with urination returns after taking all your medication. ___ Call your physician if you have a temperature of 100.4 degrees Fahrenheit or higher. ___ Wipe from front to back. SIGNS OF PRE-ECLAMPSIA ___ Severe heartburn. ___ Persistent headache not relieved by Tylenol. ___ Increased in swelling of face, hands and feet. ___ Blurred vision, double vision, or spots in the eyes. ___ Persistent vomiting. ___ *Convulsions or seizures. LABOR ___ Restrict activity. ___ Drink 8-12 glasses of water every day. ___ Urinate frequently ___ Pelvic rest. No sexual intercourse/ Call your physician if you experience: ___ Increase in vaginal discharge, leaking fluid, or vaginal bleeding. ___ More than 4, 5, or 6 contractions in one hour. ___ Burning and frequency with urination. DECREASED MOVEMENT _X__ Lie down on your left side, drink some fluids and relax. Count the movements. You need to have 10 movements in 2 hours. _X__ If you do not feel the 10 movements, call your physician. OTHER ___ After an exam you may experience some spotting or discharge. As long as it is not bright red and heavy like a period or continues to leak as if your water broke, it is to be expected. ___ LABOR Call your physician if you experience: _X__ Painful uterine contractions every _2-5__ minutes for _1-2__ hours. _X__A gush or continuous trickle of watery discharge. COME TO THE HOSPITAL AND CALL PHYSICIAN IF: _X__ Your abdomen feels continually firm. _X__ *Bleeding is bright red and enough to saturate a pad in one hour or less. *Call 911 or go to the nearest Emergency Room for assistance. Form [id number] D: 05/23 Document Released: 06/01/2006 Document Revised: 05/20/2012 Document Reviewed: 06/01/2006 ExitCare Patient Information 2012 [employer]. Follow Up Care 11/18/2022 12:11:36 With:[facility] Address: When: Unknown Comments:Follow-up as scheduled [facility] 11-18-2022 Note Discharge Instructions Thank you for allowing [facility] to assist you with your healthcare needs. The following is important discharge information regarding your hospital visit. Your Care Team KALIA MOSCOSO DO What to do next Follow Up Appointments Follow Up with [facility] When Why: Follow-up as scheduled Where: Someone Will Contact You Regarding These Home Health Referrals No home referrals have been ordered for you. No one will call you. The Following Activity and Diet Have Been Ordered for You No qualifying data available. No qualifying data available. The Following Equipment Has Been Ordered for You No qualifying data available. The Following Treatments Have Been Arranged for You Discharge Labs No qualifying data available. Discharge Radiology No qualifying data available. Other Therapies No qualifying data available. Allergies NKA Medications Please ask your primary doctor or pharmacist before taking any other medication not listed, including over the counter drugs, herbal medications, vitamins and or supplements as they may interact with your home medications. What How Much When Instructions Last Dose Unchanged busPIRone (busPIRone 10 mg oral tablet) See instructions 1-3 daily if needed Unchanged folic acid 3 Milligram Once a day Unchanged lamoTRIgine (LaMICtal XR 300 mg oral tablet, extended release) 1 tab(s) by mouth Once a day Unchanged multivitamin, ( Multivitamins with Vitamin B Complex, Vitamin C, Minerals and L-Methylfolate oral capsule) 1 cap by mouth Every day Please take this list to your next doctor s visit. Bring all medications you take, including over the counter medications, herbals and other supplements with you to your doctor s visit. Patients and families are reminded to discard old lists and to update any records with all medication providers or retail pharmacies. Education Materials [facility] OUT[facility] HOME-GOING INSTRUCTIONS _X_ You are to follow up with your physician as scheduled ACTIVITY ___ Bedrest _X__Activity as tolerated ___ No work/school for ___ days. ___Other PRESCRIPTION GIVEN ___Yes NAUSEA/VOMITING ___ Take small, frequent amounts of clear liquids. Avoid fruit juices and milk. ___ Increase fluid intake to a minimum of 8 ounces of fluid every hour while awake. ___ Soft diet. Rice, crackers, bananas, Jell-O, cooked carrots, applesauce. ___ [place] diet. Avoid caffeine, chocolate, alcohol, spiced/greasy foods. URINARY TRACT INFECTION ___ Drink 8-12 glasses of water every day. ___ Urinate frequently; do not limit fluids to reduce frequency of urination. ___ Call your physician if burning and frequency with urination returns after taking all your medication. ___ Call your physician if you have a temperature of 100.4 degrees Fahrenheit or higher. ___ Wipe from front to back. SIGNS OF PRE-ECLAMPSIA ___ Severe heartburn. ___ Persistent headache not relieved by Tylenol. ___ Increased in swelling of face, hands and feet. ___ Blurred vision, double vision, or spots in the eyes. ___ Persistent vomiting. ___ *Convulsions or seizures. LABOR ___ Restrict activity. ___ Drink 8-12 glasses of water every day. ___ Urinate frequently ___ Pelvic rest. No sexual intercourse/ Call your physician if you experience: ___ Increase in vaginal discharge, leaking fluid, or vaginal bleeding. ___ More than 4, 5, or 6 contractions in one hour. ___ Burning and frequency with urination. DECREASED MOVEMENT _X__ Lie down on your left side, drink some fluids and relax. Count the movements. You need to have 10 movements in 2 hours. _X__ If you do not feel the 10 movements, call your physician. OTHER ___ After an exam you may experience some spotting or discharge. As long as it is not bright red and heavy like a period or continues to leak as if your water broke, it is to be expected. ___ LABOR Call your physician if you experience: _X__ Painful uterine contractions every _2-5__ minutes for _1-2__ hours. _X__A gush or continuous trickle of watery discharge. COME TO THE HOSPITAL AND CALL PHYSICIAN IF: _X__ Your abdomen feels continually firm. _X__ *Bleeding is bright red and enough to saturate a pad in one hour or less. *Call 911 or go to the nearest Emergency Room for assistance. Form [id number] D: 05/23 Document Released: 06/01/2006 Document Revised: 05/20/2012 Document Reviewed: 06/01/2006 ExitCare Patient Information 2011 [employer]. Additional Information VACCINATE! IT SAVES LIVES! Members of the community who have not yet received the COVID-19 vaccine and would like to receive it can visit one of [facility] vaccine clinics. There are many vaccine clinic locations within the [facility]. For locations and available times, please visit [email or web address] [email or web address] It is important to note that some COVID mobile vaccine clinics are held outdoors and may be canceled in rainy or stormy conditions. To learn more about pediatric vaccinations (ages 5-11), we invite you to visit the [facility] webpage. [email or web address] [email or web address]-[email or web address] To learn more about the COVID-19 vaccine, we invite you to visit the CDC website for a list of frequently asked questions. https://www.cdc.gov/coronavirus/ 2019-ncov/vaccines/faq.html [facility] Patient Portal Access Instructions: Stay connected with your healthcare team and access your personal medical information anytime with the [facility] Patient Portal.If you would like a full copy of your medical records, please contact the [facility] Medical Records Department, Thursday through Thursday between 8a.m. and 4:30p.m. Please follow the directions below to access the portal: 1.Access the email account you provided upon registration to the hospital.2.Look for an invitation email from [facility].3.Open the email and access the invitation link: Accept Invitation to [facility]4.Fill in the required iverson to create your account. Sign into www.[email or web address] with your username and password that you created in the above steps to stay up to date. You can then view a summary of results, a summary of your visits, and the ability to download your summaries to your computer or send the information securely to a physician. Remember that your healthcare information is confidential, so carefully consider who you will allow to register on the [facility] Patient Portal for access to your information. You can also access the [facility] Patient Portal on the [employer] jignesh. Simply click on Health Records under Health Data and then click on the [facility] logo. HOW TO SAFELY DISPOSE OF PRESCRIPTION MEDICATIONS Please use one of the following methods to safely dispose of your unused medications. 1.Use a drug disposal kit: the drug disposal pouch allows you to safely discard your old and unused drugs. Ask your nurse to give you one when you are discharged.2.Visit a local take-back location: Many local pharmacies and police departments have programs that collect old and unwanted prescription drugs. Call your local pharmacy or go to http://TapFwd.[employer]/0X9Dt0b to find one close to you.3.Make use of household items: Use cat litter or old coffee grounds to dispose medications if other options are not available. Mix your drugs with these household products, seal them in an airtight container and throw it into the garbage. Call [facility]: [phone] to be sure your drugs can be disposed of in this way. Some medicines may require a different approach.4.Never flush your medications down the toilet. IF YOU HAVE BEEN PRESCRIBED AN OPIOID FOR PAIN If you have been prescribed an opioid (such as hydrocodone, oxycodone or morphine), it is critical to understand the possible side effects and risks of opioid pain medications. Even when taken as directed, opioids can have several side effects including: Tolerance, meaning you might need to take more of a medication for the same pain relief. Nausea, vomiting and/or constipation. Sleepiness, dizziness, dry mouth, confusion, depression or itching. Physical dependence, meaning you have withdrawal symptoms when a medication is stopped, can develop within a few days. KNOW YOUR RESPONSIBILITIES It is important to know exactly how much and how often to take the opioid pain medications you are prescribed. Never take opioids in higher amounts or more often than prescribed. Do not combine opioids with alcohol or other drugs that cause drowsiness, such as benzodiazepines, also known as benzos, including diazepam and alprazolam, muscle relaxants or sleep aids. Never sell or share prescription opioids. This is illegal. Store opioids in a secure place and out of reach of others (including children, family, friends and visitors). The last page of this document has been signed and retained as a CHART COPY Signatures Patient Education Materials 7 - Labor and Delivery Outpatient Instructions (CUSTOM) Medication Leaflets My discharge plan and instructions have been reviewed and explained to me and I,BERTIN MCDUFFIE understand my current condition and have read and understand these discharge instructions. I have received a written copy of the plan/instructions. If I have questions, I am aware that I should contact my doctor. 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 HPI Bertin Mcduffie is a 26 year old female who presents here today for Above Complaints. Bertin is an established patient of Dr. Pelon DO and myself. Concerns today... Wart/skin tag--- To L knee. Has noticed about 6 months ago, could have been there much longer. Had wart on middle finger that she had frozen off and never returned. Pt denies any pain, itchiness, or drainage from site. No changes in color, shape, or size since noticing it 6 months ago. Not bothersome. Has not tried any OTC medication for this. Pt is -- due late November. No other concerns or complaints. Past medical history, appointments, medications, allergies reviewed. Previous Medical History PAST MEDICAL HISTORY Diagnosis Date Seizures (HCC) 2013 Previous Surgical History History reviewed. No pertinent surgical history. Family History No family history on file. Patient Allergies ALLERGIES No Known Allergies Current Medications Current Outpatient Medications on File Prior to Visit Medication Sig folic acid 1 mg tablet Take 1 mg by mouth once daily. 3 mg once a day VIT 10-IRON FUM-FOLIC ORAL Take by mouth. lamoTRIgine (LAMICTAL) 200 mg tablet Take 100 mg by mouth once daily. 300mg once a day busPIRone (BUSPAR) 10 mg tablet Take 20 mg by mouth twice daily. No current facility-administered medications on file prior to visit. Social History Social History Tobacco Use Smoking status: Every Day Smokeless tobacco: Never REVIEW OF SYSTEMS: as above Reviewed relevant PMHx, PSHx, Social Hx, current medications and allergies. Review of Symptoms REVIEW OF SYSTEMS See HPI. All other systems are negative. EXAM: BP 130/60 (BP Site: Left Arm, BP Position: Sitting, BP Cuff Size: Large Adult) Pulse 96 Resp 14 Wt 98.1 kg (216 lb 3.2 oz) LMP 01/16/2014 BMI 35.16 kg/m General Appearance: Well appearing, alert, in no acute distress, well-hydrated, well nourished.. Skin: Skin color, texture, turgor normal, no suspicious rashes or lesions. Wart to L knee -- raised, flesh-colored, circular, size of eraser head. Head: Normocephalic, no masses, lesions, tenderness or abnormalities. Extremities: No deformities, edema, skin discoloration, clubbing or cyanosis. Good capillary refill. . Musculoskeletal: No joint swelling, deformity, or tenderness. Peripheral Pulses: Normal. Neurologic: Gait normal. Reflexes normal and symmetric. Sensation grossly intact. Health Maintenance List DTAP,TDAP,TD(7 - Td or Tdap) due on 01/13/2023 PAP TESTING due on 08/04/2023 HPV VACCINE(3 - 2-dose series) due on 08/04/2023 COVID-19 VACCINE(1) due on 08/04/2023 PNEUMOCOCCAL(1 - PCV) due on 08/04/2023 INFLUENZA(Season Ended) due on 02/13/2023 DEPRESSION ASSESSMENT Completed HEPATITIS C SCREENING Completed HIV SCREENING Completed HEPATITIS B Discontinued ASSESSMENT/PLAN: 1. Viral warts, unspecified type - ICD9: 078.10, ICD10: B07.9 Discussed trying OTC wart removal treatment. If no improvement, RTO for appointment with Dr. Bird or ALEX [facility] to have cryotherapy for removal (as I am not certified to perform this). Pt agreeable. RTO as needed, if not improved. Prescription instructions reviewed with patient as applicable. Potential red flag symptoms discussed with the patient. Reviewed appropriate action plan to take if red flag symptoms occur. Patient agreeable to treatment plan. Rosana Parada APRN.ALEX [id number] [place] [id number] documented in this encounter [facility] 08-06-2022 Miscellaneous Notes Pt informed, verbalized understanding Shama Clark Please call patient and let her know that lab work results look great! No acute concerns. Lipid panel is elevated. I recommend decreasing fried, fatty foods and red meat to 2x per week. Increase exercise and increase green veggies and lean protein in diet. Stay to this diet and exercise plan and repeat lipid panel in [address] you have time after to focus on this. Repeat blood work ordered. Thank you, Rosana Evans APRN.CNP documented in this encounter [facility] 08-04-2022 History of Presen t illness Narrative Chief Complaint Patient presents with: Establish Care HPI Bertin Mcduffie is a 26 year old female who presents here today for Above Complaints. Bertin is a new patient to our PCP team today, here to establish care. Concerns today... --- 22 weeks gestation. Having a baby [facility] OB - from [facility]. Going to maternal specialist in [facility] d/t frequent miscarriages with unknown causes. 7th , has 2 children at home. Numerous miscarriages. Most miscarriages were early, 10 weeks or less. 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 Sees neurologist in [place] routinely, currently at annual visits due to stable. Last seizure was about 4-5 months ago. On lamictal 200 mg daily. SARMAD--- Regimen of buspar 20 mg BID --- pt reports only taking this as needed. OB told pt it was OK to continue on this regimen during . Debating or not due to feeling like she needs back on anti-anxiety regimen. Anxiety has worsened with . DDD-- At age 12/13 pt was dx with DDD. Not on any routine medication for this. Intermittent episodes of back pain. Unsure if current flare is related to or not. Wrist pain -- Intermittent episodes of bilateral wrist stiffness and soreness x years. 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 Numbness/tingling in fingers occasionally. Worse at night. Aunt and mother both with carpal tunnel syndrome. No other concerns or complaints. Past medical history, appointments, medications, allergies reviewed. Previous Medical History PAST MEDICAL HISTORY Diagnosis Date Seizures ([facility]) 2012 Previous Surgical History History reviewed. No pertinent surgical history. Family History No family history on file. Patient Allergies ALLERGIES No Known Allergies Current Medications Current Outpatient Medications on File Prior to Visit Medication Sig busPIRone (BUSPAR) 10 mg tablet Take 20 mg by mouth twice daily. folic acid 1 mg tablet Take 1 mg by mouth once daily. 3 mg once a day VIT 10-IRON FUM-FOLIC ORAL Take by mouth. lamoTRIgine (LAMICTAL) 200 mg tablet Take 100 mg by mouth once daily. 300mg once a day LATUDA 80 mg tablet TAKE 1 TABLET BY MOUTH ONCE DAILY WITH FOOD (AT LEAST 350 CALORIES) (Patient not taking: Reported on 08/04/2022) No current facility-administered medications on file prior to visit. Social History Social History Tobacco Use Smoking status: Every Day Smokeless tobacco: Never REVIEW OF SYSTEMS: as above Reviewed relevant PMHx, PSHx, Social Hx, current medications and allergies. Review of Symptoms REVIEW OF SYSTEMS See HPI. All other systems are negative. EXAM: BP 124/60 (BP Site: Left Arm, BP Position: Sitting, BP Cuff Size: Regular Adult) Pulse 104 Resp 12 Ht 167 cm (5' 5.75) Wt 96.6 kg (213 lb) LMP 01/16/2014 BMI 34.64 kg/m General Appearance: Well appearing, alert, in no acute distress, well-hydrated, well nourished.. Skin: Skin color, texture, turgor normal, no suspicious rashes or lesions. Head: Normocephalic, no masses, lesions, tenderness or abnormalities. Neck: Supple, no adenopathy; thyroid symmetric, normal size, no bruits. Back:no pain to palpation of vertebrae, good flexion and extension, good range of motion, no muscle tenderness, reflexes are 2+ and symmetric, motor and sensory appear to be normal, negative SLR test, no evidence of scoliosis Lungs: Lungs clear to auscultation. No wheezing, rhonchi, rales.. Heart: RRR without murmur, gallop, or rubs. No ectopy. Abdomen: Normal abdominal exam, although limitied d/t . Abdomen soft, non-tender. Bowel sounds normal. No masses, organomegaly. Extremities: No deformities, edema, skin discoloration, clubbing or cyanosis. Good capillary refill. . Musculoskeletal: No joint swelling, deformity, or tenderness. Peripheral Pulses: Normal. Neurologic: Gait normal. Reflexes normal and symmetric. Sensation grossly intact. Health Maintenance List HEPATITIS B(4 of 4 - 4-dose series) due on 09/18/1997 PNEUMOCOCCAL(1 - PCV) Never done HPV VACCINE(3 - 2-dose series) due on 06/16/2010 HEPATITIS C SCREENING Never done HIV SCREENING Never done PAP TESTING Never done DTAP,TDAP,TD(7 - Td or Tdap) due on 12/15/2019 DEPRESSION ASSESSMENT Never done INFLUENZA(1) due on 12/12/2022 COVID-19 VACCINE(1) due on 08/04/2023 ASSESSMENT/PLAN: 1. Wellness examination - ICD9: V70.0, ICD10: Z00.00 (primary diagnosis) - Counseled on healthy diet and regular exercise - Recommend vitamin containing 0.4 mg of folic acid - Calcium intake with supplements or by diet of 1000 mg/day for under 50, 8271-8083 mg/day for 50+ - COMP METABOLIC PANEL - CBC + DIFF - LIPID PANEL BASIC 2. Special screening examination for viral disease - ICD9: V73.99, ICD10: Z11.59 - HEP C AB IA W/CONF SCRN 3. Screening for HIV (human immunodeficiency virus) - ICD9: V73.89, ICD10: Z11.4 - HIV 1 2 COMBO(AG/AB),WITH REFLEX TO DIFFERENTIATION 4. Nonintractable epilepsy without status epilepticus, unspecified epilepsy type (HCC) - ICD9: 345.90, ICD10: G40.909 Stable. Continue with current regimen. Continue with neurologist routinely. 5. Chronic midline low back pain without sciatica - ICD9: 724.2, 338.29, ICD10: M54.50, G89.29 Stable currently. After delivery of baby, we can further investigate with lumbar x-rays. Pt agreeable. 6. 22 weeks gestation of - ICD9: V22.2, ICD10: Z3A.22 Continue with OB and maternal specialist. 7. Bilateral wrist pain - ICD9: 719.43, ICD10: M25.531, M25.532 Try OTC wrist braces at night. Concern for carpal tunnel syndrome. No NSAID use currently d/t . Pt aware. Able to take tylenol if needed. RTO in 6 months, sooner if needed. Prescription instructions reviewed with patient as applicable. Potential red flag symptoms discussed with the patient. Reviewed appropriate action plan to take if red flag symptoms occur. Patient agreeable to treatment plan. Rosana Parada APRN.ALEX [address] [place] [address] documented in this encounter [facility] 07-23-2022 Miscellaneous Notes Called PT LVM to let her know she can either schedule with Bre or Alyson. Luisa DIAZ She would need to be seen by Rosana or Bre Bird DO Pt called stating her [id number] talked to Dr. Bird and she indicated she gave okay for her to be scheduled to establish with her team. Please confirm. MIL name is Bradley Rogers [phone]. Route back to [facility] to schedule if approved. documented in this encounter [facility] 04-27-2022 Hospital Discharg e instructions Additional Instructions See your IMMIGRATION CASE MANAGER within next 3 to 5 days. [facility] Work Phone: 10-14-2021 Hospital Discharg e instructions Patient Education 10/14/2021 15:42:55 Dilation and Curettage or Vacuum Curettage, Care After, [id number] Dilation and Curettage or Vacuum Curettage, Care After These instructions give you information about caring for yourself after your procedure. Your doctor may also give you more specific instructions. Call your doctor if you have any problems or questions after your procedure. Follow these instructions at home: Activity Do not drive or use heavy machinery while taking prescription pain medicine. For 24 hours after your procedure, avoid driving. Take short walks often, followed by rest periods. Ask your doctor what activities are safe for you. After one or two days, you may be able to return to your normal activities. Do not lift anything that is heavier than 10 lb (4.5 kg) until your doctor approves. For at least 2 weeks, or as long as told by your doctor: ?Do not douche. ?Do not use tampons. ?Do not have sex. General instructions Take kcgd-[id number]-[id number] and prescription medicines only as told by your doctor. This is very important if you take blood thinning medicine. Do not take baths, swim, or use a hot tub until your doctor approves. Take showers instead of baths. Wear compression stockings as told by your doctor. It is up to you to get the results of your procedure. Ask your doctor when your results will be ready. Keep all follow-up visits as told by your doctor. This is important. Contact a doctor if: You have very bad cramps that get worse or do not get better with medicine. You have very bad pain in your belly (abdomen). You cannot drink fluids without throwing up (vomiting). You get pain in a different part of the area between your belly and thighs (pelvis). You have bad-smelling discharge from your vagina. You have a rash. Get help right away if: You are bleeding a lot from your vagina. A lot of bleeding means soaking more than one sanitary pad in an hour, for 2 hours in a row. You have clumps of blood (blood clots) coming from your vagina. You have a fever or chills. Your belly feels very tender or hard. You have chest pain. You have trouble breathing. You cough up blood. You feel dizzy. You feel light-headed. You pass out (faint). You have pain in your neck or shoulder area. Summary Take short walks often, followed by rest periods. Ask your doctor what activities are safe for you. After one or two days, you may be able to return to your normal activities. Do not lift anything that is heavier than 10 lb (4.5 kg) until your doctor approves. Do not take baths, swim, or use a hot tub until your doctor approves. Take showers instead of baths. Contact your doctor if you have any symptoms of infection, like bad-smelling discharge from your vagina. This information is not intended to replace advice given to you by your health care provider. Make sure you discuss any questions you have with your health care provider. Document Released: 03/10/2009 Document Revised: 05/14/2018 Document Reviewed: 02/16/2017 [employer] Patient Education 2020 [employer]. Follow Up Care 10/13/2021 13:03:51 With:[facility] ELDRID[facility] Address: When: Unknown Comments:call to schedule 2 week follow up appointment [facility] 11-11-2013 History of Past i llness Narrative Problem Noted Date Resolved Date Localized superficial swelling, mass, or lump 11/25/2013 documented as of this encounter (statuses as of 07/23/2022) [facility] History of Past illness Narrative* Problem Noted Date Resolved Date Localized superficial swelling, mass, or lump 11/25/2013 documented as of this encounter (statuses as of 08/04/2022) [facility] History of Past illness Narrative* Problem Noted Date Resolved Date Localized superficial swelling, mass, or lump 11/25/2013 documented as of this encounter (statuses as of 08/06/2022) [facility] History of Past illness Narrative* Problem Noted Date Resolved Date Localized superficial swelling, mass, or lump 11/25/2013 documented as of this encounter (statuses as of 09/18/2022) [facility] History of Past illness Narrative* Problem Noted Date Diagnosed Date Resolved Date Localized superficial swelling, mass, or lump 11/12/19 14 11/25/2013 documented as of this encounter (statuses as of 12/20/2022) [facility] History of Past illness Narrative* Problem Noted Date Diagnosed Date Resolved Date Localized superficial swelling, mass, or lump 11/12/19 14 11/25/2013 documented as of this encounter (statuses as of 02/05/2023) [facility] History of Past illness Narrative* Problem Noted Date Diagnosed Date Resolved Date Localized superficial swelling, mass, or lump 11/12/19 14 11/25/2013 documented as of this encounter (statuses as of 03/13/2023) [facility] History of Past illness Narrative* Problem Noted Date Diagnosed Date Resolved Date Localized superficial swelling, mass, or lump 11/12/19 14 11/25/2013 documented as of this encounter (statuses as of 03/30/2023) [facility] History of Past illness Narrative* Problem Noted Date Diagnosed Date Resolved Date Localized superficial swelling, mass, or lump 11/12/19 14 11/25/2013 documented as of this encounter (statuses as of 04/01/2023) [facility] History of Past illness Narrative* Problem Noted Date Diagnosed Date Resolved Date Localized superficial swelling, mass, or lump 11/12/19 14 11/25/2013 documented as of this encounter (statuses as of 09/15/2023) [facility] History of Past illness Narrative* Problem Noted Date Diagnosed Date Resolved Date Localized superficial swelling, mass, or lump 11/12/19 14 11/25/2013 documented as of this encounter (statuses as of 09/15/2023) [facility] No data available for this section [facility] Evaluation noteNo assessment information available [facility] Work Phone: Evaluation note* Diagnosis Wellness examination- Primary Special screening examination for viral disease Special screening examination for unspecified viral disease Screening for HIV (human immunodeficiency virus) Special screening examination for other specified viral diseases Nonintractable epilepsy without status epilepticus, unspecified epilepsy type (HCC) Chronic midline low back pain without sciatica 22 weeks gestation of state, incidental Bilateral wrist pain Pain in joint, forearm documented in this encounter [facility] note* Diagnosis Hyperlipidemia, mixed- Primary Mixed hyperlipidemia documented in this encounter [facility] note* Diagnosis Viral warts, unspecified type- Primary documented in this encounter [facility] note* Diagnosis Pain of breast during - Primary documented in this encounter [facility] note* Diagnosis Acute midline low back pain without sciatica- Primary Pain of left hip Burping Flatulence, eructation, and gas pain Nausea Nausea alone Pain in both wrists Pain in joint, forearm Jaw pain Tension headache documented in this encounter [facility] note* Diagnosis Seizure disorder (HCC)- Primary Unspecified epilepsy without mention of intractable epilepsy documented in this encounter [facility] note* Diagnosis anxiety Mental disorders of mother, documented in this encounter [facility] note* Diagnosis Acute pain of right knee- Primary Acute midline low back pain without sciatica Pain of right hip documented in this encounter [facility] note* Diagnosis Sore throat- Primary Acute pharyngitis Irregular periods Irregular menstrual cycle Dysuria Strep throat Streptococcal sore throat test positive examination or test, positive result Otalgia of left ear Otalgia, unspecified documented in this encounter [facility] note* Diagnosis Seizure disorder (HCC)- Primary Unspecified epilepsy without mention of intractable epilepsy documented in this encounter [facility] note* Diagnosis Epilepsy affecting in first trimester (HCC)- Primary documented in this encounter [facility] note* Diagnosis 15 weeks gestation of - Primary state, incidental Screening for cervical cancer Screening for malignant neoplasm of the cervix anxiety Mental disorders of mother, Vaginal irritation Unspecified noninflammatory disorder of vagina Diarrhea, unspecified type Short interval between pregnancies affecting , antepartum Encounter for supervision of normal in multigravida History of gestational diabetes in prior , currently with other poor obstetric history History of polyhydramnios Personal history of other genital system and obstetric disorders Factor V Leiden (HCC) Primary hypercoagulable state depression Mental disorders of mother, [facility] Diagnosis Nausea and vomiting, unspecified vomiting type- Primary [facility]* Diagnosis Diarrhea, unspecified type [facility]* Diagnosis Supervision of other high risk pregnancies, second trimester- Primary 20 weeks gestation of state, incidental Short interval between pregnancies affecting , antepartum History of gestational diabetes in prior , currently with other poor obstetric history Seizure disorder (HCC) Unspecified epilepsy without mention of intractable epilepsy Factor V Leiden (HCC) Primary hypercoagulable state depression Mental disorders of mother, Calculus of gallbladder without cholecystitis without obstruction Calculus of gallbladder without mention of cholecystitis or obstruction [facility]* Diagnosis Encounter for anatomic survey- Primary 20 weeks gestation of state, incidental [facility]* Diagnosis Acute midline low back pain without sciatica Pain of left hip [facility]* Diagnosis Supervision of other high risk pregnancies, second trimester- Primary Short interval between pregnancies affecting , antepartum Factor V Leiden (HCC) Primary hypercoagulable state History of gestational diabetes in prior , currently with other poor obstetric history Vaginal yeast infection Candidiasis of vulva and vagina [facility]* Diagnosis Seizure disorder (HCC)- Primary Unspecified epilepsy without mention of intractable epilepsy [facility]* Diagnosis Supervision of other high risk pregnancies, second trimester- Primary 27 weeks gestation of state, incidental Seizure disorder (HCC) Unspecified epilepsy without mention of intractable epilepsy History of gestational diabetes in prior , currently with other poor obstetric history Factor V Leiden (HCC) Primary hypercoagulable state Encounter for supervision of normal in multigravida Short interval between pregnancies affecting , antepartum History of labor Personal history of pre-term labor documented in this encounter [facility] note* Diagnosis Supervision of other high risk pregnancies, second trimester- Primary 27 weeks gestation of state, incidental History of gestational diabetes in prior , currently with other poor obstetric history Seizure disorder (HCC) Unspecified epilepsy without mention of intractable epilepsy Factor V Leiden (HCC) Primary hypercoagulable state [facility]* Diagnosis 29 weeks gestation of - Primary state, incidental Supervision of other high risk pregnancies, second trimester Seizure disorder (HCC) Unspecified epilepsy without mention of intractable epilepsy Need for vaccination Need for prophylactic vaccination and inoculation against unspecified single disease Need for influenza vaccination Need for prophylactic vaccination and inoculation against influenza [facility]* Diagnosis 32 weeks gestation of - Primary state, incidental Supervision of other high risk pregnancies, second trimester documented in this encounter [facility] note* Diagnosis Encounter for ultrasound to check growth- Primary Encounter for routine screening for malformation using ultrasonics 32 weeks gestation of state, incidental documented in this encounter [facility] note* Diagnosis High-risk in third trimester- Primary Supervision of other high risk pregnancies, second trimester Short interval between pregnancies affecting , antepartum Abnormal thyroid blood test Nonspecific abnormal results of thyroid function study Seizure disorder (HCC) Unspecified epilepsy without mention of intractable epilepsy * Assessment & Plan Note - Cyndee Salgado MD - 06/03/2024 3:36 PM EST Associated Problem(s): Short interval between pregnancies affecting , antepartum * Assessment & Plan Note - Cyndee Salgado MD - 06/03/2024 3:36 PM EST Associated Problem(s): Abnormal thyroid blood test * Assessment & Plan Note - Cyndee Salgado MD - 06/03/2024 3:36 PM EST Associated Problem(s): Seizure disorder (HCC) documented in this encounter [facility] note* Diagnosis High-risk in third trimester- Primary Supervision of other high risk pregnancies, second trimester Short interval between pregnancies affecting , antepartum Abnormal thyroid blood test Nonspecific abnormal results of thyroid function study Seizure disorder (HCC) Unspecified epilepsy without mention of intractable epilepsy [employer] Consult Note 06/16- Primary Other specified complication, antepartum Supervision of other high risk pregnancies, second trimester documented in this encounter [facility] note* Diagnosis High-risk in third trimester- Primary Supervision of other high risk pregnancies, second trimester Short interval between pregnancies affecting , antepartum Abnormal thyroid blood test Nonspecific abnormal results of thyroid function study Seizure disorder (HCC) Unspecified epilepsy without mention of intractable epilepsy Supervision of high risk in third trimester- Primary Unspecified high-risk 36 weeks gestation of state, incidental Seizure disorder (HCC) Unspecified epilepsy without mention of intractable epilepsy Short interval between pregnancies affecting , antepartum Factor V Leiden (HCC) Primary hypercoagulable state * Assessment & Plan Note - Joseph Medrano MD - 06/17/2024 1:32 PM EST Associated Problem(s): Supervision of high risk in third trimester Orders: URINE OB DIP B/O ROUTINE, GROUP B STREP PCR * Assessment & Plan Note - Joseph Medrano MD - 06/17/2024 1:32 PM EST Associated Problem(s): Seizure disorder (HCC) no seizures in 2 years. Orders: URINE OB DIP B/O * Assessment & Plan Note - Joseph Medrano MD - 06/17/2024 1:32 PM EST Associated Problem(s): Short interval between pregnancies affecting , antepartum Orders: URINE OB DIP B/O * Assessment & Plan Note - Joseph Medrano MD - 06/17/2024 1:32 PM EST Associated Problem(s): Factor V Leiden (HCC) plan lovenox after delivery Orders: URINE [facility] DIP B/[facility] Diagnosis High-risk in third trimester- Primary Supervision of other high risk pregnancies, second trimester Short interval between pregnancies affecting , antepartum Abnormal thyroid blood test Nonspecific abnormal results of thyroid function study Seizure disorder (HCC) Unspecified epilepsy without mention of intractable epilepsy Supervision of high risk in third trimester- Primary Unspecified high-risk 36 weeks gestation of state, incidental Seizure disorder (HCC) Unspecified epilepsy without mention of intractable epilepsy Short interval between pregnancies affecting , antepartum Factor V Leiden (HCC) Primary hypercoagulable state Supervision of high risk in third trimester- Primary Unspecified high-risk Seizure disorder (HCC) Unspecified epilepsy without mention of intractable epilepsy 37 weeks gestation of state, incidental Decreased movements in third trimester, single or unspecified fetus * Assessment & Plan Note - Joseph Medrano MD - 06/23/2024 12:56 PM EST Associated Problem(s): Supervision of high risk in third trimester Supervision of high risk in third trimester Orders: URINE OB DIP B/O * Assessment & Plan Note - Joseph Medrano MD - 06/23/2024 12:56 PM EST Associated Problem(s): Seizure disorder (HCC) Seizure disorder (HCC) * Assessment & Plan Note - Joseph Medrano MD - 06/23/2024 12:52 PM EST Associated Problem(s): Short interval between pregnancies affecting , antepartum Short interval between pregnancies affecting , antepartum documented in this encounter [facility] note* Diagnosis High-risk in third trimester- Primary Supervision of other high risk pregnancies, second trimester Short interval between pregnancies affecting , antepartum Abnormal thyroid blood test Nonspecific abnormal results of thyroid function study Seizure disorder (HCC) Unspecified epilepsy without mention of intractable epilepsy Supervision of high risk in third trimester- Primary Unspecified high-risk 36 weeks gestation of state, incidental Seizure disorder (HCC) Unspecified epilepsy without mention of intractable epilepsy Short interval between pregnancies affecting , antepartum Factor V Leiden (HCC) Primary hypercoagulable state Supervision of high risk in third trimester- Primary Unspecified high-risk Seizure disorder (HCC) Unspecified epilepsy without mention of intractable epilepsy 37 weeks gestation of state, incidental Decreased movements in third trimester, single or unspecified fetus Abnormal uterine bleeding, - Primary Other immediate hemorrhage, Seizure disorder (HCC) Unspecified epilepsy without mention of intractable epilepsy SOB (shortness of breath) on exertion Shortness of breath RUQ abdominal pain Abdominal pain, right upper quadrant History of gestational diabetes Personal history of gestational diabetes Factor V Leiden (HCC) Primary hypercoagulable state documented in this encounter [facility] note* Diagnosis High-risk in third trimester- Primary Supervision of other high risk pregnancies, second trimester Short interval between pregnancies affecting , antepartum Abnormal thyroid blood test Nonspecific abnormal results of thyroid function study Seizure disorder (HCC) Unspecified epilepsy without mention of intractable epilepsy Supervision of high risk in third trimester- Primary Unspecified high-risk 36 weeks gestation of state, incidental Seizure disorder (HCC) Unspecified epilepsy without mention of intractable epilepsy Short interval between pregnancies affecting , antepartum Factor V Leiden (HCC) Primary hypercoagulable state Supervision of high risk in third trimester- Primary Unspecified high-risk Seizure disorder (HCC) Unspecified epilepsy without mention of intractable epilepsy 37 weeks gestation of state, incidental Decreased movements in third trimester, single or unspecified fetus Abnormal uterine bleeding, Other immediate hemorrhage, documented in this encounter [facility] note* Diagnosis High-risk in third trimester- Primary Supervision of other high risk pregnancies, second trimester Short interval between pregnancies affecting , antepartum Abnormal thyroid blood test Nonspecific abnormal results of thyroid function study Seizure disorder (HCC) Unspecified epilepsy without mention of intractable epilepsy Supervision of high risk in third trimester- Primary Unspecified high-risk 36 weeks gestation of state, incidental Seizure disorder (HCC) Unspecified epilepsy without mention of intractable epilepsy Short interval between pregnancies affecting , antepartum Factor V Leiden (HCC) Primary hypercoagulable state Supervision of high risk in third trimester- Primary Unspecified high-risk Seizure disorder (HCC) Unspecified epilepsy without mention of intractable epilepsy 37 weeks gestation of state, incidental Decreased movements in third trimester, single or unspecified fetus Abnormal uterine bleeding, - Primary Other immediate hemorrhage, [facility] Diagnosis High-risk in third trimester- Primary Supervision of other high risk pregnancies, second trimester Short interval between pregnancies affecting , antepartum Abnormal thyroid blood test Nonspecific abnormal results of thyroid function study Seizure disorder (HCC) Unspecified epilepsy without mention of intractable epilepsy Supervision of high risk in third trimester- Primary Unspecified high-risk 36 weeks gestation of state, incidental Seizure disorder (HCC) Unspecified epilepsy without mention of intractable epilepsy Short interval between pregnancies affecting , antepartum Factor V Leiden (HCC) Primary hypercoagulable state Supervision of high risk in third trimester- Primary Unspecified high-risk Seizure disorder (HCC) Unspecified epilepsy without mention of intractable epilepsy 37 weeks gestation of state, incidental Decreased movements in third trimester, single or unspecified fetus SOB (shortness of breath) on exertion Shortness of breath Abnormal uterine bleeding, Other immediate hemorrhage, [facility] Diagnosis High-risk in third trimester- Primary Supervision of other high risk pregnancies, second trimester Short interval between pregnancies affecting , antepartum Abnormal thyroid blood test Nonspecific abnormal results of thyroid function study Seizure disorder (HCC) Unspecified epilepsy without mention of intractable epilepsy Supervision of high risk in third trimester- Primary Unspecified high-risk 36 weeks gestation of state, incidental Seizure disorder (HCC) Unspecified epilepsy without mention of intractable epilepsy Short interval between pregnancies affecting , antepartum Factor V Leiden (HCC) Primary hypercoagulable state Supervision of high risk in third trimester- Primary Unspecified high-risk Seizure disorder (HCC) Unspecified epilepsy without mention of intractable epilepsy 37 weeks gestation of state, incidental Decreased movements in third trimester, single or unspecified fetus hemorrhage, unspecified type- Primary Follow-up exam Unspecified follow-up examination documented in this encounter [facility] note* Diagnosis High-risk in third trimester- Primary Supervision of other high risk pregnancies, second trimester Short interval between pregnancies affecting , antepartum Abnormal thyroid blood test Nonspecific abnormal results of thyroid function study Seizure disorder (HCC) Unspecified epilepsy without mention of intractable epilepsy Supervision of high risk in third trimester- Primary Unspecified high-risk 36 weeks gestation of state, incidental Seizure disorder (HCC) Unspecified epilepsy without mention of intractable epilepsy Short interval between pregnancies affecting , antepartum Factor V Leiden (HCC) Primary hypercoagulable state Supervision of high risk in third trimester- Primary Unspecified high-risk Seizure disorder (HCC) Unspecified epilepsy without mention of intractable epilepsy 37 weeks gestation of state, incidental Decreased movements in third trimester, single or unspecified fetus hemorrhage, unspecified type- Primary Follow-up exam Unspecified follow-up examination hemorrhage, unspecified type- Primary Follow-up exam Unspecified follow-up examination documented in this encounter [facility] note* Diagnosis High-risk in third trimester- Primary Supervision of other high risk pregnancies, second trimester Short interval between pregnancies affecting , antepartum Abnormal thyroid blood test Nonspecific abnormal results of thyroid function study Seizure disorder (HCC) Unspecified epilepsy without mention of intractable epilepsy Supervision of high risk in third trimester- Primary Unspecified high-risk 36 weeks gestation of state, incidental Seizure disorder (HCC) Unspecified epilepsy without mention of intractable epilepsy Short interval between pregnancies affecting , antepartum Factor V Leiden (HCC) Primary hypercoagulable state Supervision of high risk in third trimester- Primary Unspecified high-risk Seizure disorder (HCC) Unspecified epilepsy without mention of intractable epilepsy 37 weeks gestation of state, incidental Decreased movements in third trimester, single or unspecified fetus Encounter for initial prescription of implantable subdermal contraceptive- Primary control counseling General counseling for initiation of other contraceptive measures documented in this encounter [facility] note* Diagnosis High-risk in third trimester- Primary Supervision of other high risk pregnancies, second trimester Short interval between pregnancies affecting , antepartum Abnormal thyroid blood test Nonspecific abnormal results of thyroid function study Seizure disorder (HCC) Unspecified epilepsy without mention of intractable epilepsy Supervision of high risk in third trimester- Primary Unspecified high-risk 36 weeks gestation of state, incidental Seizure disorder (HCC) Unspecified epilepsy without mention of intractable epilepsy Short interval between pregnancies affecting , antepartum Factor V Leiden (HCC) Primary hypercoagulable state Supervision of high risk in third trimester- Primary Unspecified high-risk Seizure disorder (HCC) Unspecified epilepsy without mention of intractable epilepsy 37 weeks gestation of state, incidental Decreased movements in third trimester, single or unspecified fetus Fluctuating blood pressure- Primary Other abnormal clinical finding Abnormal uterine bleeding, Other immediate hemorrhage, [facility]* Diagnosis High-risk in third trimester- Primary Supervision of other high risk pregnancies, second trimester Short interval between pregnancies affecting , antepartum Abnormal thyroid blood test Nonspecific abnormal results of thyroid function study Seizure disorder (HCC) Unspecified epilepsy without mention of intractable epilepsy Supervision of high risk in third trimester- Primary Unspecified high-risk 36 weeks gestation of state, incidental Seizure disorder (HCC) Unspecified epilepsy without mention of intractable epilepsy Short interval between pregnancies affecting , antepartum Factor V Leiden (HCC) Primary hypercoagulable state Supervision of high risk in third trimester- Primary Unspecified high-risk Seizure disorder (HCC) Unspecified epilepsy without mention of intractable epilepsy 37 weeks gestation of state, incidental Decreased movements in third trimester, single or unspecified fetus Abnormal uterine bleeding, - Primary Other immediate hemorrhage, Factor V Leiden (HCC) Primary hypercoagulable state [facility]* Diagnosis High-risk in third trimester- Primary Supervision of other high risk pregnancies, second trimester Short interval between pregnancies affecting , antepartum Abnormal thyroid blood test Nonspecific abnormal results of thyroid function study Seizure disorder (HCC) Unspecified epilepsy without mention of intractable epilepsy Supervision of high risk in third trimester- Primary Unspecified high-risk 36 weeks gestation of state, incidental Seizure disorder (HCC) Unspecified epilepsy without mention of intractable epilepsy Short interval between pregnancies affecting , antepartum Factor V Leiden (HCC) Primary hypercoagulable state Supervision of high risk in third trimester- Primary Unspecified high-risk Seizure disorder (HCC) Unspecified epilepsy without mention of intractable epilepsy 37 weeks gestation of state, incidental Decreased movements in third trimester, single or unspecified fetus care and examination- Primary Routine follow-up Nexplanon insertion Insertion of implantable subdermal contraceptive [facility] Diagnosis High-risk in third trimester- Primary Supervision of other high risk pregnancies, second trimester Short interval between pregnancies affecting , antepartum Abnormal thyroid blood test Nonspecific abnormal results of thyroid function study Seizure disorder (HCC) Unspecified epilepsy without mention of intractable epilepsy Supervision of high risk in third trimester- Primary Unspecified high-risk 36 weeks gestation of state, incidental Seizure disorder (HCC) Unspecified epilepsy without mention of intractable epilepsy Short interval between pregnancies affecting , antepartum Factor V Leiden (HCC) Primary hypercoagulable state Supervision of high risk in third trimester- Primary Unspecified high-risk Seizure disorder (HCC) Unspecified epilepsy without mention of intractable epilepsy 37 weeks gestation of state, incidental Decreased movements in third trimester, single or unspecified fetus Nexplanon insertion- Primary Insertion of implantable subdermal contraceptive Insertion of implantable subdermal contraceptive [facility] Additional Instructions Motrin and Tylenol for any pelvic pain or cramping. Plenty of fluids and rest. Follow-up with your OB for further evaluation. They can do a pelvic exam if needed. They can recheck your blood count if needed. They can do an ultrasound if needed.[facility] Work Phone: Progress note No data available for this section [facility] Reason for referral (narrative)* Diagnostic Procedure Only (Routine) - Closed Specialty Diagnoses / Procedures Referred By Eben t Referred To Contact XR IMAGING Diagnoses Pain of left hip Procedures XR HIP GENERAL 3V PELV/AP/LAT LEFT RADEX HIP UNILATERAL WITH PELVIS 2-3 VIEWS Rosana Evans APRN.SURVEY TECHNOLOGIST [address] [place] [address] [place] [address] Referral ID Status Reason Start Date Expiration Date V isits Requested Visits Authorized [id number] Closed Auto-Generate d Referral 02/04/2023 03/05/2024 1 1 * Diagnostic Procedure Only (Routine) - Closed Specialty Diagnoses / Procedures Referred By Contac t Referred To Contact XR IMAGING Diagnoses Acute midline low back pain without sciatica Procedures XR THORACIC GENERAL 3V AP/LAT/SWIMMERS RADEX SPINE THORACIC 3 VIEWS Rosana Evans APRN.SURVEY TECHNOLOGIST [address] [place] [address] [place] [address] Referral ID Status Reason Start Date Expiration Date V isits Requested Visits Authorized [id number] Closed Auto-Generate d Referral 02/04/2023 03/05/2024 1 1 * Diagnostic Procedure Only (Routine) - Closed Specialty Diagnoses / Procedures Referred By Contac t Referred To Contact XR IMAGING Diagnoses Acute midline low back pain without sciatica Procedures XR LUMBAR GENERAL 3V AP/LAT/L5-S1 RADEX SPINE LUMBOSACRAL 2/3 VIEWS Rosana Evans APRN.SURVEY TECHNOLOGIST [address] [place] [address] [place] [address] Referral ID Status Reason Start Date Expiration Date V isits Requested Visits Authorized [id number] Closed Auto-Generate d Referral 02/04/2023 03/05/2024 1 1 [facility] for referral (narrative)* Diagnostic Procedure Only (Routine) - Authorized Specialty Diagnoses / Procedures Referred By Contac t Referred To Contact US IMAGING Diagnoses Diarrhea, unspecified type Procedures US ABD RIGHT UPPER QUADRANT US ABDOMINAL REAL TIME W/IMAGE LIMITED Catrina Mcduffie APRN.SURVEY TECHNOLOGIST [address] [place] [address] [place] [address] Referral ID Status Reason Start Date Expiration Date Visits Requested Visits Authorized [id number] Authorized Auto-Generat ed Referral 01/12/2024 02/10/2025 1 1 * Diagnostic Procedure Only (Routine) - Authorized Specialty Diagnoses / Procedures Referred By Contac t Referred To Contact [facility] Diagnoses 15 weeks gestation of Procedures OBSTETRIC ULTRASOUND WHI US PREG UTERUS AFTER 1ST TRIMEST GESTATION Catrina Mcduffie APRN.SURVEY TECHNOLOGIST [address] [place] [address] [facility] [place]Note 2] [address] [place] [address] Referral ID Status Reason Start Date Expiration Date Visits Requested Visits Authorized [id number] Authorized Auto-Generat ed Referral 01/12/2024 01/11/2025 1 1 [facility] for referral (narrative)* Diagnostic Procedure Only (Routine) - Closed Specialty Diagnoses / Procedures Referred By Contac t Referred To Contact XR IMAGING Diagnoses Pain of left hip Procedures XR HIP GENERAL 3V PELV/AP/LAT LEFT RADEX HIP UNILATERAL WITH PELVIS 2-3 VIEWS Rosana Evans APRN.SURVEY TECHNOLOGIST [address] [place] [address] [place] [address] Referral ID Status Reason Start Date Expiration Date V isits Requested Visits Authorized [id number] Closed Auto-Generate d Referral 02/04/2023 03/05/2024 1 1 * Diagnostic Procedure Only (Routine) - Closed Specialty Diagnoses / Procedures Referred By Contac t Referred To Contact XR IMAGING Diagnoses Acute midline low back pain without sciatica Procedures XR THORACIC GENERAL 3V AP/LAT/SWIMMERS RADEX SPINE THORACIC 3 VIEWS Rosana Evans APRN.SURVEY TECHNOLOGIST [address] [place] [address] [place] [address] Referral ID Status Reason Start Date Expiration Date V isits Requested Visits Authorized [id number] Closed Auto-Generate d Referral 02/04/2023 03/05/2024 1 1 * Diagnostic Procedure Only (Routine) - Closed Specialty Diagnoses / Procedures Referred By Contac t Referred To Contact XR IMAGING Diagnoses Acute midline low back pain without sciatica Procedures XR LUMBAR GENERAL 3V AP/LAT/L5-S1 RADEX SPINE LUMBOSACRAL 2/3 VIEWS Rosana Evans APRN.SURVEY TECHNOLOGIST [address] [place] [address] [place] [address] Referral ID Status Reason Start Date Expiration Date V isits Requested Visits Authorized [id number] Closed Auto-Generate d Referral 02/04/2023 03/05/2024 1 1 [facility] for referral (narrative)* Diagnostic Procedure Only (Routine) - New Request Specialty Diagnoses / Procedures Referred By Contac t Referred To Contact US IMAGING Diagnoses SOB (shortness of breath) on exertion RUQ abdominal pain History of gestational diabetes Abnormal uterine bleeding, Procedures US FEMALE PELVIS TRANSABD LTD US PELVIC NONOBSTETRIC IMAGE DCMTN LIMITED/F/U Rosana Evans APRN.SURVEY TECHNOLOGIST [address] [place] [address] [place] [address] Referral ID Status Reason Start Date Expiration Date Visits Requested Visits Authorized [id number] New Request Auto-Generat ed Referral 07/01/2024 07/31/2025 1 1 * Diagnostic Procedure Only (Routine) - Authorized Specialty Diagnoses / Procedures Referred By Contac t Referred To Contact US IMAGING Diagnoses SOB (shortness of breath) on exertion Abnormal uterine bleeding, Procedures US ABDOMEN COMPLETE US ABDOMINAL REAL TIME W/IMAGE DOCUMENTATION Rosana Evans APRN.SURVEY TECHNOLOGIST [address] [place] [address] [place] [address] Referral ID Status Reason Start Date Expiration Date Visits Requested Visits Authorized [id number] Authorized Auto-Generat ed Referral 07/01/2024 07/31/2025 1 1 [facility] for referral (narrative)* Diagnostic Procedure Only (Routine) - Authorized Specialty Diagnoses / Procedures Referred By Contac t Referred To Contact US IMAGING Diagnoses Abnormal uterine bleeding, Procedures US FEMALE PELVIS TRANSABD COMPLETE US PELVIC NONOBSTETRIC REAL-TIME IMAGE COMPLETE Rosana Evans APRN.SURVEY TECHNOLOGIST [address] [place] [address] [place] [address] Referral ID Status Reason Start Date Expiration Date Visits Requested Visits Authorized [id number] Authorized Auto-Generat ed Referral 07/01/2024 07/31/2025 1 1 [facility] for referral (narrative)* Diagnostic Procedure Only (Routine) - Closed Specialty Diagnoses / Procedures Referred By Contac t Referred To Contact US IMAGING Diagnoses SOB (shortness of breath) on exertion Abnormal uterine bleeding, Procedures US ABDOMEN COMPLETE US ABDOMINAL REAL TIME W/IMAGE DOCUMENTATION Rosana Evans APRN.SURVEY TECHNOLOGIST [address] [place] [address] [place] [address] Referral ID Status Reason Start Date Expiration Date V isits Requested Visits Authorized [id number] Closed Auto-Generate d Referral 07/01/2024 07/31/2025 1 1 [facility] for referral (narrative)* Diagnostic Procedure Only (Routine) - Closed Specialty Diagnoses / Procedures Referred By Contac t Referred To Contact [facility] Diagnoses hemorrhage, unspecified type Follow-up exam Procedures PELVIC US WHI US PELVIC NONOBSTETRIC REAL-TIME IMAGE COMPLETE Julianna Velazquez MD [address] [facility] [place] [address] [facility] [place]Note 2] [address] [place] [address] Referral ID Status Reason Start Date Expiration Date V isits Requested Visits Authorized [id number] Closed Auto-Generate d Referral 07/07/2024 07/07/2025 1 1 [facility] for referral (narrative)* Outpatient Procedure (Routine) - New Request Specialty Diagnoses / Procedures Referred By Contac t Referred To Contact [facility] Diagnoses Encounter for initial prescription of implantable subdermal contraceptive Procedures NEXPLANON INSERTION ETONOGESTREL IMPLANT SYSTEM INSERT DRUG IMPLANT DEVICE Julianna Velazquez MD [address] [place] [address] [facility] [place]Note 2] [address] [place] [address] Referral ID Status Reason Start Date Expiration Date Visits Requested Visits Authorized [id number] New Request Auto-Generat ed Referral 07/15/2024 07/15/2025 1 1 [facility] for visit Narrative* Diagnostic Procedure Only (Routine) - Closed Specialty Diagnoses / Procedures Referred By Contac t Referred To Contact XR IMAGING Diagnoses Acute midline low back pain without sciatica Acute pain of right knee Pain of right hip Procedures XR HIP GENERAL 3V PELV/AP/LAT RIGHT RADEX HIP UNILATERAL WITH PELVIS 2-3 VIEWS Rosana Evans APRN.SURVEY TECHNOLOGIST [address] [place] [address] [place] [address] Referral ID Status Reason Start Date Expiration Date V isits Requested Visits Authorized [id number] Closed Auto-Generate d Referral 09/14/2023 10/13/2024 1 1 [facility] for visit Narrative* Diagnostic Procedure Only (Routine) - Closed Specialty Diagnoses / Procedures Referred By Contac t Referred To Contact XR IMAGING Diagnoses Pain of left hip Procedures XR HIP GENERAL 3V PELV/AP/LAT LEFT RADEX HIP UNILATERAL WITH PELVIS 2-3 VIEWS Rosana Evans APRN.SURVEY TECHNOLOGIST [address] [place] [address] [place] [address] Referral ID Status Reason Start Date Expiration Date V isits Requested Visits Authorized [id number] Closed Auto-Generate d Referral 02/04/2023 03/05/2024 1 1 [facility] Diagnostic Procedure Only (Routine) - Closed Specialty Diagnoses / Procedures Referred By Contac t Referred To Contact [facility] Diagnoses hemorrhage, unspecified type Follow-up exam Procedures PELVIC US WHI US PELVIC NONOBSTETRIC REAL-TIME IMAGE COMPLETE Julianna Velazquez MD [address] [place] [address] [facility] [place]Note 2] [address] [place] [address] Referral ID Status Reason Start Date Expiration Date V isits Requested Visits Authorized [id number] Closed Auto-Generate d Referral 07/07/2024 07/07/2025 1 1 [facility] Chief Complaint and Reason for Visit Chief Complaint VAGINAL BLEEDING Chief Complaint VAGINAL BLEEDING vaginal bleeding Advance Directives No Advanced Directives Records Found Advance Directive Response Recorded Date/ Time Living Will No February 12 11:48am Power of Test Tech No February 12 11:48am Advance Directive Response Recorded Date/ Time Living Will No April 27 10:45am Power of Test Tech No April 27, 2022 10:45am Summary Purpose Family History No Family History Records FoundNo Family History Records FoundNo Family History Records FoundNo Family History Records FoundNo Family History Records FoundNo Family History Records FoundNo Family History Records Found Reason for Referral Specialty Diagnoses / Procedures Referred By Contac t Referred To Contact Diagnoses Supervision of other high risk pregnancies, second trimester Procedures MPOWER CONSULT Belgica Thomas APRN.CNM [address] [place] [address] Referral ID Status Reason Start Date Expiration Date Visits Requested Visits Authorized [id number] Ref Not Required PCP Requested Referral 04/01/2025 1 1 Specialty Diagnoses / Procedures Referred By Contac t Referred To Contact [facility] Diagnoses Supervision of other high risk pregnancies, second trimester Procedures OBSTETRIC ULTRASOUND WHI US PREG UTERUS AFTER 1ST TRIMEST 1/ GESTATION Belgica Thomas APRN.CNM [address] [place] [address] [facility] [place]Note 2] [address] [place] [address] Referral ID Status Reason Start Date Expiration Date Visits Requested Visits Authorized [id number] Authorized Auto-Generat ed Referral 04/01/2025 1 1 Specialty Diagnoses / Procedures Referred By Contac t Referred To Contact Diagnoses Seizure disorder (HCC) Oz Terrazas MD [address] [facility] [address] [place] [address] Referral ID Status Reason Start Date Expiration Date Visits Re quested Visits Authorized [id number] Closed 1 1 Specialty Diagnoses / Procedures Referred By Contac t Referred To Contact [facility] Diagnoses Acute midline low back pain without sciatica Acute pain of right knee Pain of right hip Procedures CONSULT TO PHYSICAL THERAPY PHYSICAL THERAPY EVALUATION HIGH COMPLEX 45 MINS Rosana Evans, OBGYN NURSE.SURVEY TECHNOLOGIST [address] [place] [address] [facility] [address] [address] Referral ID Status Reason Start Date Expiration Date Visits Requested Visits Authorized [id number] Pending Review Auto-Generat ed Referral 09/14/2023 09/13/2024 1 1 Specialty Diagnoses / Procedures Referred By Contac t Referred To Contact XR IMAGING Diagnoses Acute midline low back pain without sciatica Acute pain of right knee Pain of right hip Procedures XR HIP GENERAL 3V PELV/AP/LAT RIGHT RADEX HIP UNILATERAL WITH PELVIS 2-3 VIEWS Rosana Evans, OBGYN NURSE.SURVEY TECHNOLOGIST [address] [place] [address] [place] [id number] Referral ID Status Reason Start Date Expiration Date Visits Requested Visits Authorized [id number] Authorized Auto-Generat ed Referral 09/14/2023 10/13/2024 1 1 Specialty Diagnoses / Procedures Referred By Contac t Referred To Contact XR IMAGING Diagnoses Acute midline low back pain without sciatica Acute pain of right knee Pain of right hip Procedures XR KNEE GENERAL 4V AP BOTH/PA BOTH/LAT/MERC RIGHT RADIOLOGIC EXAM KNEE COMPLETE 4/MORE VIEWS Rosana Evans, OBGYN NURSE.SURVEY TECHNOLOGIST [address] [place] [address] [place] [id number] Referral ID Status Reason Start Date Expiration Date Visits Requested Visits Authorized [id number] Authorized Auto-Generat ed Referral 09/14/2023 10/13/2024 1 1 Specialty Diagnoses / Procedures Referred By Eben bernabe Referred To Contact Oz Terrazas MD [address] [facility] [address] [place] [address] Referral ID Status Reason Start Date Expiration Date Visits Re quested Visits Authorized [id number] Closed 1 1 Additional Source Comments Care Team (unrecognized sect ion and content) Freight Agent Relationship Specialty Start Date End Date Ashlee Bonilla [address] [facility] [address] [place] [address] PCP - General Family Medicine 01/06/14 Freight Agent Relationship Specialty Start Date End Date Carlos Bird DO [address] [place] [address] PCP - General Family Medicine 08/04/22 Freight Agent Relationship Specialty Start Date End Date Carlos Bird DO [address] [place] [address] PCP - General Family Medicine 08/04/22 Freight Agent Relationship Specialty Start Date End Date Carlos Bird DO [address] [place] [address] PCP - General Family Medicine 08/04/22 Freight Agent Relationship Specialty Start Date End Date Carlos Bird DO [address] [place] [address] PCP - General Family Medicine 08/04/22 Freight Agent Relationship Specialty Start Date End Date Carlos Bird DO [address] [place] [address] PCP - General Family Medicine 08/04/22 Freight Agent Relationship Specialty Start Date End Date Carlos Bird, [address] [place] [address] PCP - General Family Medicine 08/04/22 Freight Agent Relationship Specialty Start Date End Date Carlos Bird, [address] [place] [address] PCP - General Family Medicine 08/04/22 Freight Agent Relationship Specialty Start Date End Date Carlos Bird DO [address] [place] [address] PCP - General Family Medicine 08/04/22 Freight Agent Relationship Specialty Start Date End Date Carlos Bird DO [address] [place] [address] PCP - General Family Medicine 08/04/22 Freight Agent Relationship Specialty Start Date End Date Carlos Bird DO [address] [place] [address] PCP - General Family Medicine 08/04/22 Freight Agent Relationship Specialty Start Date End Date Carlos Bird DO [address] [place] [address] PCP - General Family Medicine 08/04/22 Freight Agent Relationship Specialty Start Date End Date Carlos Bird DO [address] [place] [address] PCP - General Family Medicine 08/04/22 Freight Agent Relationship Specialty Start Date End Date Carlos Bird DO [address] [place] [address] PCP - General Family Medicine 08/04/22 Freight Agent Relationship Specialty Start Date End Date Carlos Bird DO [address] [facility] [place] [address] PCP - General Family Medicine 08/04/22 Freight Agent Relationship Specialty Start Date End Date Carlos Bird DO [address] [facility] [address] PCP - General Family Medicine 08/04/22 Freight Agent Relationship Specialty Start Date End Date Carlos Bird DO [address] [place] [address] PCP - General Family Medicine 08/04/22 Freight Agent Relationship Specialty Start Date End Date Carlos Bird DO [address] [place] [address] PCP - General Family Medicine 08/04/22 Freight Agent Relationship Specialty Start Date End Date Carlos Bird DO [address] [facility] [place] [place] [address] PCP - General Family Medicine 08/04/22 Freight Agent Relationship Specialty Start Date End Date Carlos Bird DO [address] [facility] [place] [address] PCP - General Family Medicine 08/04/22 Freight Agent Relationship Specialty Start Date End Date Carlos Bird DO [address] [facility] [place] [address] PCP - General Family Medicine 08/04/22 Freight Agent Relationship Specialty Start Date End Date Carlos Bird DO [address] [facility] [place] [address] PCP - General Family Medicine 08/04/22 Freight Agent Relationship Specialty Start Date End Date Carlos Bird DO [address] [facility] [place] [address] PCP - General Family Medicine 08/04/22 Freight Agent Relationship Specialty Start Date End Date Carlos Bird DO [address] [facility] [place] [address] PCP - General Family Medicine 08/04/22 Freight Agent Relationship Specialty Start Date End Date Carlos Bird DO [address] [place] [address] PCP - General Family Medicine 08/04/22 Freight Agent Relationship Specialty Start Date End Date Carlos Bird DO [address] [facility] [place] [address] PCP - General Family Medicine 08/04/22 Freight Agent Relationship Specialty Start Date End Date Carlos Bird DO [address] [facility] [place] [address] PCP - General Family Medicine 08/04/22 Freight Agent Relationship Specialty Start Date End Date Carlos Bird DO [address] [facility] [place] [address] PCP - General Family Medicine 08/04/22 Freight Agent Relationship Specialty Start Date End Date Carlos Bird DO [address] [facility] [place] [address] PCP - General Family Medicine 08/04/22 Freight Agent Relationship Specialty Start Date End Date Carlos Bird DO [address] [place] [address] PCP - General Family Medicine 08/04/22 Freight Agent Relationship Specialty Start Date End Date Carlos Bird DO [address] [place] [address] PCP - General Family Medicine 08/04/22 Freight Agent Relationship Specialty Start Date End Date Carlos Bird DO [address] [facility] [place] [address] PCP - General Family Medicine 08/04/22 Rosana Evans, OBGYN NURSE.SURVEY TECHNOLOGIST [address] [facility] [place] [address] Tobacco Flavorer Family Medicine 05/22/24 Ronel Ayers, OBGYN NURSE.SURVEY TECHNOLOGIST [address] [facility] [place] [address] Tobacco Flavorer Family Medicine 05/22/24 Freight Agent Relationship Specialty Start Date End Date Carlos Bird DO [address] [facility] [place] [address] PCP - General Family Medicine 08/04/22 Rosana Evans, OBGYN NURSE.SURVEY TECHNOLOGIST [address] [facility] [place] [address] Tobacco Flavorer Family Medicine 05/22/24 Ronel Ayers, OBGYN NURSE.SURVEY TECHNOLOGIST [address] [facility] [place] [address] Tobacco Flavorer Family Medicine 05/22/24 Freight Agent Relationship Specialty Start Date End Date Carlos Bird DO [address] [facility] [place] [address] PCP - General Family Medicine 08/04/22 Rosana Evans, OBGYN NURSE.SURVEY TECHNOLOGIST [address] [place] [address] Tobacco Flavorer Family Medicine 05/22/24 Ronel Ayers, OBGYN NURSE.SURVEY TECHNOLOGIST [address] [place] [address] Tobacco Flavorer Family Medicine 05/22/24 Freight Agent Relationship Specialty Start Date End Date Carlos Bird DO [address] [place] [address] PCP - General Family Medicine 08/04/22 Rosana Evans, OBGYN NURSE.SURVEY TECHNOLOGIST [address] [facility] [place] [address] Tobacco Flavorer Family Medicine 05/22/24 Ronel Ayers, OBGYN NURSE.SURVEY TECHNOLOGIST [address] [place] [address] Tobacco Flavorer Family [facility] 05/22/24 Freight Agent Relationship Specialty Start Date End Date Carlos Bird DO [address] [place] [address] PCP - General Family Medicine 08/04/22 Rosana Evans, OBGYN NURSE.SURVEY TECHNOLOGIST [address] [place] [address] Tobacco Flavorer Family Medicine 05/22/24 Ronel Ayers, OBGYN NURSE.SURVEY TECHNOLOGIST [address] [place] [address] [facility] Freight Agent Relationship Specialty Start Date End Date Carlos Bird DO [address] [facility] [place] [address] PCP - General Family Medicine 08/04/22 Rosana Evans, OBGYN NURSE.SURVEY TECHNOLOGIST [address] [place] [address] [facility] 05/[facility]/24 [facility] NURSE.SURVEY TECHNOLOGIST [address] [place] [address] [facility] 05/22/24 Freight Agent Relationship Specialty Start Date End Date Carlos Bird DO [address] [place] [address] PCP - General Family Medicine 08/04/22 Rosana Evans, OBGYN NURSE.SURVEY TECHNOLOGIST [address] [place] [address] [facility] 05/22/24 [facility], OBGYN NURSE.SURVEY TECHNOLOGIST [address] [place] [address] [facility] 05/22/24 Freight Agent Relationship Specialty Start Date End Date Carlos Bird DO [address] [place] [address] PCP - General Family Medicine 08/04/22 Rosana Evans, OBGYN NURSE.SURVEY TECHNOLOGIST [address] [place] [address] [facility] 05/[facility]/24 [facility] Center[facility]pol[facility], OBGYN NURSE.SURVEY TECHNOLOGIST [address] [facility] [place] [address] [facility] 05/22/24 Freight Agent Relationship Specialty Start Date End Date Carlos Bird DO [address] [facility] [place] [address] PCP - General Family Medicine 08/04/22 Rosana Evans, OBGYN NURSE.SURVEY TECHNOLOGIST [address] [facility] [place] [address] [facility] 05/22/24 [facility], OBGYN NURSE.SURVEY TECHNOLOGIST [address] [facility] [place] [address] [facility] 05/22/24 Freight Agent Relationship Specialty Start Date End Date Carlos Bird DO [address] [facility] [place] [address] PCP - General Family Medicine 08/04/22 Rosana Evans, OBGYN NURSE.SURVEY TECHNOLOGIST [address] [facility] [place] [address] [facility] 05/22/24 [facility], OBGYN NURSE.SURVEY TECHNOLOGIST [address] [facility] [place] [address] [facility] 05/22/24 Freight Agent Relationship Specialty Start Date End Date Carlos Bird DO [address] [facility] [place] [address] PCP - General Family Medicine 08/04/22 Rosana Eavns, OBGYN NURSE.SURVEY TECHNOLOGIST [address] [place] [address] Tobacco Flavorer Family [facility] 05/22/24 Ronel Ayers, OBGYN NURSE.SURVEY TECHNOLOGIST [address] [place] [address] Tobacco Flavorer Family [facility] 05/22/24 Freight Agent Relationship Specialty Start Date End Date Carlos Bird DO [address] [place] [address] PCP - General Family Medicine 08/04/22 Rosana Evans, OBGYN NURSE.SURVEY TECHNOLOGIST [address] [place] [address] Tobacco Flavorer [facility] 05/22/24 Ronel Ayers, OBGYN NURSE.SURVEY TECHNOLOGIST [address] [place] [address] [facility] 05/22/24 Freight Agent Relationship Specialty Start Date End Date Carlos Bird DO [address] [place] [address] PCP - General Family Medicine 08/04/22 Rosana Evans, OBGYN NURSE.SURVEY TECHNOLOGIST [address] [place] [address] [facility] 05/22/24 Ronel Ayers, OBGYN NURSE.SURVEY TECHNOLOGIST [address] [place] [address] [facility] 05/22/24 Freight Agent Relationship Specialty Start Date End Date Carlos Bird DO [address] [facility] [place] [address] PCP - General Family Medicine 08/04/22 Rosana Evans, OBGYN NURSE.SURVEY TECHNOLOGIST [address] [place] [address] Tobacco Flavorer Family Medicine 05/22/24 Ronel Ayers, OBGYN NURSE.SURVEY TECHNOLOGIST [address] [place] [address] Tobacco Flavorer Family Medicine 05/22/24 Freight Agent Relationship Specialty Start Date End Date Carlos Bird DO [address] [facility] [place] [address] PCP - General Family Medicine 08/04/22 Rosana Evans, OBGYN NURSE.SURVEY TECHNOLOGIST [address] [place] [address] Tobacco Flavorer Family Medicine 05/22/24 Ronel Ayers, OBGYN NURSE.SURVEY TECHNOLOGIST [address] [place] [address] Tobacco Flavorer Family [facility] 05/22/24 Freight Agent Relationship Specialty Start Date End Date Carlos Bird DO [address] [place] [address] PCP - General Family Medicine 08/04/22 Rosana Evans, OBGYN NURSE.SURVEY TECHNOLOGIST [address] [place] [address] Tobacco Flavorer Family Medicine 05/22/24 Ronel Ayers, OBGYN NURSE.SURVEY TECHNOLOGIST [address] [place] [address] [facility] 05/22/24 Freight Agent Relationship Specialty Start Date End Date Carlos Bird DO [address] [place], [place] [address] PCP - General Family Medicine 08/04/22 Rosana Evans APRN.SURVEY TECHNOLOGIST [address] [place], [place] [id number] Tobacco Flavorer [facility] 05/22/24 Ronel Ayers APRN.SURVEY TECHNOLOGIST [address] [place], [place] [id number] [facility] 05/22/24 Goals (unrecognized section and content) Goals may be documented in a n alternate section Source Comments (unrecognize d section and content) In the event this informatio n is protected by the Federal Confidentiality of Alcohol and Drug Abuse Patient Records regulations: The Federal rules restrict any use of the information to criminally investigate or prosecute any alcohol or drug abuse patient.[facility] HospitalIn the event this information is protected by the Federal Confidentiality of Alcohol and Drug Abuse Patient Records regulations: The Federal rules restrict any use of the information to criminally investigate or prosecute any alcohol or drug abuse patient.[facility] HospitalIn the event this information is protected by the Federal Confidentiality of Alcohol and Drug Abuse Patient Records regulations: The Federal rules restrict any use of the information to criminally investigate or prosecute any alcohol or drug abuse patient.[facility] HospitalIn the event this information is protected by the Federal Confidentiality of Alcohol and Drug Abuse Patient Records regulations: The Federal rules restrict any use of the information to criminally investigate or prosecute any alcohol or drug abuse patient.[facility] HospitalIn the event this information is protected by the Federal Confidentiality of Alcohol and Drug Abuse Patient Records regulations: The Federal rules restrict any use of the information to criminally investigate or prosecute any alcohol or drug abuse patient.[facility] HospitalIn the event this information is protected by the Federal Confidentiality of Alcohol and Drug Abuse Patient Records regulations: The Federal rules restrict any use of the information to criminally investigate or prosecute any alcohol or drug abuse patient.[facility] HospitalIn the event this information is protected by the Federal Confidentiality of Alcohol and Drug Abuse Patient Records regulations: The Federal rules restrict any use of the information to criminally investigate or prosecute any alcohol or drug abuse patient.[facility] HospitalIn the event this information is protected by the Federal Confidentiality of Alcohol and Drug Abuse Patient Records regulations: The Federal rules restrict any use of the information to criminally investigate or prosecute any alcohol or drug abuse patient.[facility] HospitalIn the event this information is protected by the Federal Confidentiality of Alcohol and Drug Abuse Patient Records regulations: The Federal rules restrict any use of the information to criminally investigate or prosecute any alcohol or drug abuse patient.[facility] HospitalIn the event this information is protected by the Federal Confidentiality of Alcohol and Drug Abuse Patient Records regulations: The Federal rules restrict any use of the information to criminally investigate or prosecute any alcohol or drug abuse patient.[facility] HospitalIn the event this information is protected by the Federal Confidentiality of Alcohol and Drug Abuse Patient Records regulations: The Federal rules restrict any use of the information to criminally investigate or prosecute any alcohol or drug abuse patient.[facility] HospitalIn the event this information is protected by the Federal Confidentiality of Alcohol and Drug Abuse Patient Records regulations: The Federal rules restrict any use of the information to criminally investigate or prosecute any alcohol or drug abuse patient.[facility] HospitalIn the event this information is protected by the Federal Confidentiality of Alcohol and Drug Abuse Patient Records regulations: The Federal rules restrict any use of the information to criminally investigate or prosecute any alcohol or drug abuse patient.[facility] HospitalIn the event this information is protected by the Federal Confidentiality of Alcohol and Drug Abuse Patient Records regulations: The Federal rules restrict any use of the information to criminally investigate or prosecute any alcohol or drug abuse patient.[facility] HospitalIn the event this information is protected by the Federal Confidentiality of Alcohol and Drug Abuse Patient Records regulations: The Federal rules restrict any use of the information to criminally investigate or prosecute any alcohol or drug abuse patient.[facility] HospitalIn the event this information is protected by the Federal Confidentiality of Alcohol and Drug Abuse Patient Records regulations: The Federal rules restrict any use of the information to criminally investigate or prosecute any alcohol or drug abuse patient.[facility] HospitalIn the event this information is protected by the Federal Confidentiality of Alcohol and Drug Abuse Patient Records regulations: The Federal rules restrict any use of the information to criminally investigate or prosecute any alcohol or drug abuse patient.[facility] HospitalIn the event this information is protected by the Federal Confidentiality of Alcohol and Drug Abuse Patient Records regulations: The Federal rules restrict any use of the information to criminally investigate or prosecute any alcohol or drug abuse patient.[facility] HospitalIn the event this information is protected by the Federal Confidentiality of Alcohol and Drug Abuse Patient Records regulations: The Federal rules restrict any use of the information to criminally investigate or prosecute any alcohol or drug abuse patient.[facility] HospitalIn the event this information is protected by the Federal Confidentiality of Alcohol and Drug Abuse Patient Records regulations: The Federal rules restrict any use of the information to criminally investigate or prosecute any alcohol or drug abuse patient.[facility] HospitalIn the event this information is protected by the Federal Confidentiality of Alcohol and Drug Abuse Patient Records regulations: The Federal rules restrict any use of the information to criminally investigate or prosecute any alcohol or drug abuse patient.[facility] HospitalIn the event this information is protected by the Federal Confidentiality of Alcohol and Drug Abuse Patient Records regulations: The Federal rules restrict any use of the information to criminally investigate or prosecute any alcohol or drug abuse patient.[facility] HospitalIn the event this information is protected by the Federal Confidentiality of Alcohol and Drug Abuse Patient Records regulations: The Federal rules restrict any use of the information to criminally investigate or prosecute any alcohol or drug abuse patient.[facility] HospitalIn the event this information is protected by the Federal Confidentiality of Alcohol and Drug Abuse Patient Records regulations: The Federal rules restrict any use of the information to criminally investigate or prosecute any alcohol or drug abuse patient.[facility] HospitalIn the event this information is protected by the Federal Confidentiality of Alcohol and Drug Abuse Patient Records regulations: The Federal rules restrict any use of the information to criminally investigate or prosecute any alcohol or drug abuse patient.[facility] HospitalIn the event this information is protected by the Federal Confidentiality of Alcohol and Drug Abuse Patient Records regulations: The Federal rules restrict any use of the information to criminally investigate or prosecute any alcohol or drug abuse patient.[facility] HospitalIn the event this information is protected by the Federal Confidentiality of Alcohol and Drug Abuse Patient Records regulations: The Federal rules restrict any use of the information to criminally investigate or prosecute any alcohol or drug abuse patient.[facility] Hospital[facility] the event this information is protected by the Federal Confidentiality of Alcohol and Drug Abuse Patient Records regulations: The Federal rules restrict any use of the information to criminally investigate or prosecute any alcohol or drug abuse patient.[facility] HospitalIn the event this information is protected by the Federal Confidentiality of Alcohol and Drug Abuse Patient Records regulations: The Federal rules restrict any use of the information to criminally investigate or prosecute any alcohol or drug abuse patient.[facility] HospitalIn the event this information is protected by the Federal Confidentiality of Alcohol and Drug Abuse Patient Records regulations: The Federal rules restrict any use of the information to criminally investigate or prosecute any alcohol or drug abuse patient.[facility] HospitalIn the event this information is protected by the Federal Confidentiality of Alcohol and Drug Abuse Patient Records regulations: The Federal rules restrict any use of the information to criminally investigate or prosecute any alcohol or drug abuse patient.[facility] HospitalIn the event this information is protected by the Federal Confidentiality of Alcohol and Drug Abuse Patient Records regulations: The Federal rules restrict any use of the information to criminally investigate or prosecute any alcohol or drug abuse patient.[facility] HospitalIn the event this information is protected by the Federal Confidentiality of Alcohol and Drug Abuse Patient Records regulations: The Federal rules restrict any use of the information to criminally investigate or prosecute any alcohol or drug abuse patient.[facility] HospitalIn the event this information is protected by the Federal Confidentiality of Alcohol and Drug Abuse Patient Records regulations: The Federal rules restrict any use of the information to criminally investigate or prosecute any alcohol or drug abuse patient.[facility] HospitalIn the event this information is protected by the Federal Confidentiality of Alcohol and Drug Abuse Patient Records regulations: The Federal rules restrict any use of the information to criminally investigate or prosecute any alcohol or drug abuse patient.[facility] HospitalIn the event this information is protected by the Federal Confidentiality of Alcohol and Drug Abuse Patient Records regulations: The Federal rules restrict any use of the information to criminally investigate or prosecute any alcohol or drug abuse patient.[facility] HospitalIn the event this information is protected by the Federal Confidentiality of Alcohol and Drug Abuse Patient Records regulations: The Federal rules restrict any use of the information to criminally investigate or prosecute any alcohol or drug abuse patient.[facility] HospitalIn the event this information is protected by the Federal Confidentiality of Alcohol and Drug Abuse Patient Records regulations: The Federal rules restrict any use of the information to criminally investigate or prosecute any alcohol or drug abuse patient.[facility] HospitalIn the event this information is protected by the Federal Confidentiality of Alcohol and Drug Abuse Patient Records regulations: The Federal rules restrict any use of the information to criminally investigate or prosecute any alcohol or drug abuse patient.[facility] HospitalIn the event this information is protected by the Federal Confidentiality of Alcohol and Drug Abuse Patient Records regulations: The Federal rules restrict any use of the information to criminally investigate or prosecute any alcohol or drug abuse patient.[facility] HospitalIn the event this information is protected by the Federal Confidentiality of Alcohol and Drug Abuse Patient Records regulations: The Federal rules restrict any use of the information to criminally investigate or prosecute any alcohol or drug abuse patient.[facility] HospitalIn the event this information is protected by the Federal Confidentiality of Alcohol and Drug Abuse Patient Records regulations: The Federal rules restrict any use of the information to criminally investigate or prosecute any alcohol or drug abuse patient.[facility] HospitalIn the event this information is protected by the Federal Confidentiality of Alcohol and Drug Abuse Patient Records regulations: The Federal rules restrict any use of the information to criminally investigate or prosecute any alcohol or drug abuse patient.[facility] HospitalIn the event this information is protected by the Federal Confidentiality of Alcohol and Drug Abuse Patient Records regulations: The Federal rules restrict any use of the information to criminally investigate or prosecute any alcohol or drug abuse patient.[facility] HospitalIn the event this information is protected by the Federal Confidentiality of Alcohol and Drug Abuse Patient Records regulations: The Federal rules restrict any use of the information to criminally investigate or prosecute any alcohol or drug abuse patient.[facility] HospitalIn the event this information is protected by the Federal Confidentiality of Alcohol and Drug Abuse Patient Records regulations: The Federal rules restrict any use of the information to criminally investigate or prosecute any alcohol or drug abuse patient.[facility] HospitalIn the event this information is protected by the Federal Confidentiality of Alcohol and Drug Abuse Patient Records regulations: The Federal rules restrict any use of the information to criminally investigate or prosecute any alcohol or drug abuse patient.[facility] HospitalIn the event this information is protected by the Federal Confidentiality of Alcohol and Drug Abuse Patient Records regulations: The Federal rules restrict any use of the information to criminally investigate or prosecute any alcohol or drug abuse patient.[facility] HospitalIn the event this information is protected by the Federal Confidentiality of Alcohol and Drug Abuse Patient Records regulations: The Federal rules restrict any use of the information to criminally investigate or prosecute any alcohol or drug abuse patient.[facility] HospitalIn the event this information is protected by the Federal Confidentiality of Alcohol and Drug Abuse Patient Records regulations: The Federal rules restrict any use of the information to criminally investigate or prosecute any alcohol or drug abuse patient.[facility] HospitalIn the event this information is protected by the Federal Confidentiality of Alcohol and Drug Abuse Patient Records regulations: The Federal rules restrict any use of the information to criminally investigate or prosecute any alcohol or drug abuse patient.[facility] HospitalIn the event this information is protected by the Federal Confidentiality of Alcohol and Drug Abuse Patient Records regulations: The Federal rules restrict any use of the information to criminally investigate or prosecute any alcohol or drug abuse patient.[facility] HospitalIn the event this information is protected by the Federal Confidentiality of Alcohol and Drug Abuse Patient Records regulations: The Federal rules restrict any use of the information to criminally investigate or prosecute any alcohol or drug abuse patient.[facility] HospitalIn the event this information is protected by the Federal Confidentiality of Alcohol and Drug Abuse Patient Records regulations: The Federal rules restrict any use of the information to criminally investigate or prosecute any alcohol or drug abuse patient.[facility] HospitalIn the event this information is protected by the Federal Confidentiality of Alcohol and Drug Abuse Patient Records regulations: The Federal rules restrict any use of the information to criminally investigate or prosecute any alcohol or drug abuse patient.[facility] HospitalIn the event this information is protected by the Federal Confidentiality of Alcohol and Drug Abuse Patient Records regulations: The Federal rules restrict any use of the information to criminally investigate or prosecute any alcohol or drug abuse patient.[facility] HospitalIn the event this information is protected by the Federal Confidentiality of Alcohol and Drug Abuse Patient Records regulations: The Federal rules restrict any use of the information to criminally investigate or prosecute any alcohol or drug abuse patient.[facility] HospitalIn the event this information is protected by the Federal Confidentiality of Alcohol and Drug Abuse Patient Records regulations: The Federal rules restrict any use of the information to criminally investigate or prosecute any alcohol or drug abuse patient.[facility] HospitalIn the event this information is protected by the Federal Confidentiality of Alcohol and Drug Abuse Patient Records regulations: The Federal rules restrict any use of the information to criminally investigate or prosecute any alcohol or drug abuse patient.[facility] HospitalIn the event this information is protected by the Federal Confidentiality of Alcohol and Drug Abuse Patient Records regulations: The Federal rules restrict any use of the information to criminally investigate or prosecute any alcohol or drug abuse patient.[facility] HospitalIn the event this information is protected by the Federal Confidentiality of Alcohol and Drug Abuse Patient Records regulations: The Federal rules restrict any use of the information to criminally investigate or prosecute any alcohol or drug abuse patient.[facility] Reason for Visit (unrecogniz ed section and content) Reason Comments Establish Care Reason Comments Results Reason Comments skin tag on left knee Been there 6 month s, causes no problems. Reason Comments Breast Problem Pt reported bilatera l breast pain, tenderness, currently x1 mth. Reason Comments Follow Up 6 month f/up and wou ld like to talk about back Reason Comments Appointment Reason Comments Epilepsy Patient blanks out , most recently 3 weeks ago, prior to that was last summer, patient is able to anticipate onset of episodes, Specialty Diagnoses / Procedures Referred By Eben bernabe Referred To Contact Diagnoses Epilepsy (HCC) Procedures NEW PATIENT 3 Rosana Evans, SAAD.SURVEY TECHNOLOGIST [address] [place] [address] [facility] [place] [address] Referral ID Status Reason Start Date Expiration Date Visits Requested Visits Authorized [id number] Authorized Patient Cleared - Qualified 100% FAS 3 06/28/2023 99 99 Reason Comments Request Outside Medical Records Neuro[employer] [facility] Reason Comments Refill Request Reason Comments pain in rt hip and knee Started about 6- 7 months ago and has gotten worse Reason Comments Head Congestion headache, off balanc e, left ear pain, sweats, weakness and shaky x 2 days Reason Comments Future Appointment Reason Comments Initial OB Visit Reason Comments 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 - Other PRAF Reason Comments Abdominal Pain Weakness, discolored stools x 4 days Reason Comments Radiology US Specialty Diagnoses / Procedures Referred By Eben t Referred To Contact US IMAGING Diagnoses Diarrhea, unspecified type Procedures US ABD RIGHT UPPER QUADRANT US ABDOMINAL REAL TIME W/IMAGE LIMITED [place], Catrina, OBGYN NURSE.SURVEY TECHNOLOGIST [address] [place] [address] Us Imaging [facility] Referral ID Status Reason Start Date Expiration Date V isits Requested Visits Authorized [id number] Closed Auto-Generate d Referral 01/12/2024 02/10/2025 1 1 Reason Comments Insurance Authorization lamotrigine Reason Onset Date Comments Care 02/16/2024 Reason Comments US Specialty Diagnoses / Procedures Referred By Contac t Referred To Contact [facility] Diagnoses 15 weeks gestation of Procedures OBSTETRIC ULTRASOUND WHI US PREG UTERUS AFTER 1ST TRIMEST GESTATION Catrina Mcduffie, OBGYN NURSE.SURVEY TECHNOLOGIST [address] [place] [address] [address] Referral ID Status Reason Start Date Expiration Date V isits Requested Visits Authorized [id number] Closed Auto-Generate d Referral 01/12/2024 01/11/2025 1 1 Reason Comments Received Outside Medical Records Reason Onset Date Comments Care 03/04/2024 Reason Comments Follow Up No changes. Reason Onset Date Comments Care 04/01/2024 Reason Onset Date Comments Care 04/15/2024 Reason Onset Date Comments Care 04/26/2024 Immunizations 04/26/2024 Flu vaccination Reason Onset Date Comments Care 05/20/2024 Specialty Diagnoses / Procedures Referred By Contac t Referred To Contact [facility] Diagnoses Supervision of other high risk pregnancies, second trimester Procedures OBSTETRIC ULTRASOUND WHI US PREG UTERUS AFTER 1ST TRIMEST GESTATION Belgica Thomas OBGYN NURSE.CNM [address] [place] [address] [place] [id number] Referral ID Status Reason Start Date Expiration Date V isits Requested Visits Authorized [id number] Closed Auto-Generate d Referral 04/01/2024 04/01/2025 1 1 Reason Onset Date Comments Care 06/03/2024 Specialty Diagnoses / Procedures Referred By Contac t Referred To Contact Diagnoses Supervision of other high risk pregnancies, second trimester Procedures MPOWER CONSULT Belgica Thomas, OBGYN NURSE.CNM [address] [place] [address] Referral ID Status Reason Start Date Expiration Date V isits Requested Visits Authorized [id number] Closed PCP Requested Referral 04/01/2024 04/01/2025 1 1 Reason Onset Date Comments Care 06/17/2024 Reason Onset Date Comments Care 06/23/2024 Reason Comments Ob Delivery Note Reason Comments irgular heart beat and dizziness since d elievery Reason Comments PA required Reason Comments Radiology US Specialty Diagnoses / Procedures Referred By Contac t Referred To Contact US IMAGING Diagnoses SOB (shortness of breath) on exertion Abnormal uterine bleeding, Procedures US ABDOMEN COMPLETE US ABDOMINAL REAL TIME W/IMAGE DOCUMENTATION Rosana Evans, OBGYN NURSE.SURVEY TECHNOLOGIST [address] [place] [address] [place] [id number] Referral ID Status Reason Start Date Expiration Date V isits Requested Visits Authorized [id number] Closed Auto-Generate d Referral 07/01/2024 07/31/2025 1 1 Reason Comments Retained POC Reason Comments Follow Up From ultrasound, pos s retained POC Reason Comments Contraception Reason Comments Orders Reason Comments Nexplanon Insertion Specialty Diagnoses / Procedures Referred By Contac t Referred To Contact [facility] Diagnoses Nexplanon insertion Procedures NEXPLANON INSERTION ETONOGESTREL IMPLANT SYSTEM INSERT DRUG IMPLANT DEVICE Joseph Medrano MD [address] [place] [address] Phone: tel: fax: [facility] [address] [place] [address] Referral ID Status Reason Start Date Expiration Date V isits Requested Visits Authorized [id number] Closed Auto-Generate d Referral 08/15/2024 08/15/2025 1 1 INFORMATION SOURCE (unrecogn ized section and content) DATE CREATED AUTHOR 10/23/2022 [facility] DATE CREATED AUTHOR AUTHOR'S ORGANIZ ATION 12/17/2022 [facility] ([place] DATE CREATED AUTHOR AUTHOR'S ORGANIZ ATION 09/25/2023 [facility] DATE CREATED AUTHOR AUTHOR'S ORGANIZ ATION 11/08/2023 [facility] DATE CREATED AUTHOR AUTHOR'S ORGANIZ ATION 06/24/2024 [facility] DATE CREATED AUTHOR AUTHOR'S ORGANIZ ATION 07/22/2024 [facility] DATE CREATED AUTHOR AUTHOR'S ORGANIZ ATION 08/24/2024 [facility] FOR RECORDS PERTAINING TO PATIENTS WHO ARE OR HAVE BEEN ENROLLED IN A CHEMICAL DEPENDENCY/SUBSTANCEABUSE PROGRAM, SOME INFORMATION MAY BE OMITTED. This clinical summary was aggregated from multiple sources. Caution should be exercised in using it in the provision of clinical care. This summary normalizes information from multiple sources, and as a consequence, information in this document may materially change the coding, format and clinical context of patient data. In addition, data may be omitted in some cases. CLINICAL DECISIONS SHOULD BE BASED ON THE PRIMARY CLINICAL RECORDS. [facility] [employer] provides no warranty or guarantee of the accuracy or completeness of information in this document.
--- NOTE | 2025-01-29 19:46 | CM.ED ---
Social Work Date of referral: 01/29/25 Reason for referral: Mental Health/Resources being requested. Referred by: ED physician Patient provided consent to social work visit. Patient's at bedside which patient was agreeable to. Patient stated she's been under a lot of stress for the past few months and had a rough morning on this date and started researching resources that are available to her that she thinks would be a good fit and requested information on [facility]'s IOP program. Patient stated she had an inpatient psychiatric hospitalization at the age of 18 which patient described as overall traumatic, however, patient did state that the group therapy was extremely helpful for her and made a positive difference. Patient had been receiving virtual mental health therapy, admitted she had been about 5 minutes late joining on two different occasions and was told she would have to get re-established as a new patient. Patient stated she was never given a warning or never had any discussions and decided that she would rather get connected to a different mental health therapist. Patient has been disconnected from mental health servives for 4 months. Patient also expressed a desire in getting connected to a psychiatrist for added support. Patient stated she's had a life-long struggle with depression and anxiety and was also told she has Borderline Personality Disorder and ADHD. Patient stated she has a very strong support network including her , her mother, her father, her [id number], [id number] and also identified her 4 children, ages 9,5,2 and 7 months as positives for her mental health. 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 Patient stated that since she's experienced PPD before, she's just trying to stay on top of and ahead of things so symptoms don't worsen. Patient denied any suicidal or homicidal ideation. Vehicle Body Maker provided patient with written resources for [facility]'s IOP program, [email or web address], [employer] and a list of coping skills. all of which patient accepted and expressed appreciation for. It should be noted that patient's behavior/affect was appropriate, patient made good eye contact, smiled throughout the visit and did not show or report any concerns that would have been indicative of patient being at risk for harm, therefore additional assessments were not completed. Patient's also denied any additional and/or safety concerns. sheetmetal worker conferred with ED physician who was in agreement that patient will be discharged home with resources. Sirisha Ulloa, WORK ORDER DETAILER, MANAGER COUNCIL
--- NOTE | 2025-01-29 20:00 | EDS_ITS ---
HPI HPI - Psych History of Present Illness Chief Complaint: Mental Health Informant: patient and spouse/S.O. Narrative Narrative: Presents ED with spouse feeling stressed and overwhelmed the last 4 months. [place] she states she was released 4 months ago due to being late up to appointments. She is seeing Belgica Chinchilla. She states she was seeing her for approximately a year. Had concerns for borderline personality disorder and ADHD. They had possible working diagnosis of bipolar. She states multiple depressions with her 4 kids youngest being 8 months old. Denies suicidal homicidal ideations. She states since being released she has been feeling loss. She does have support with her and her mother. Tobacco history intermittent marijuana last use a week ago. Denies alcohol use. She came through front facer and was told that we need to be evaluated. [facility] Medical History History of pre-term labor Infertility Trauma Blood clotting disorder depression Psychiatric disorder Seizures Anxiety Depression Factor V Leiden Seizure disorder Gallstones Home Medications ?Medication ?Instructions ?Recorded ?Last Taken ?Type lamotrigine 300 mg tablet,extended 300 mg PO QHS 06/27 Unknown History release 24 hr Allergy/AdvReac Type Severity Reaction Status Date / Time No Known Allergies Allergy Verified 07/02/24 15:49 Social History Smoking Status: Current every day smoker tobacco type: cigarettes substance use type: marijuana ROS ROS ED Constitutional Constitutional ED: Denies fever(s) Cardiovascular Cardiovascular: Denies chest pain Respiratory/Chest Respiratory/Chest: Denies cough Gastrointestinal Gastrointestinal: Denies diarrhea or vomiting Musculoskeletal Musculoskeletal: Denies none Integumentary Denies rash or wounds Neurologic Neurologic: Denies weakness Psychiatric Psychiatric: Reports depression and other Details: Stress overwhelmed with depression symptoms. Denies suicidal or homicidal ideations. EXAM Physical Exam Const Vital Signs: 01/29/25 18:07 01/29/25 20:02 Temperature 97.1 F L 98.4 F Temperature Source Temporal Pulse Rate 92 75 Respiratory Rate 14 14 Blood Pressure 131/75 H 105/74 Blood Pressure Mean 93 84 Pulse Ox 98 100 Oxygen Delivery Method Room Air Positive well nourished and well developed General Appearance ED: well developed and NAD HEENT Reports moist mucous membranes normocephalic and atraumatic Eyes General Eye ED: Yes normal appearance of both eyes Neck full ROM Chest Wall Chest: Negative for tenderness Resp normal respiratory effort and normal air movement Effort and Inspection: symmetric chest movement; Negative for respiratory distress Cardio regular rate, regular rhythm and no murmurs Peripheral Pulses: pulses 2+ throughout GI normal to inspection, nondistended, normoactive bowel sounds and non-tender Palpation: Negative for guarding or rebound tenderness present Extremity normal to inspection General Extremety ED: Negative for edema or tenderness General Extremity: Negative for edema Neuro oriented x3 and no sensory deficits noted Sensorium / Orientation: awake and alert Psych Psych Narrative: No suicidal or homicidal ideations. Presenting with depression-like symptoms. Increasing stress. Skin no rashes or lesions noted and no wounds MDM MDM MDM Narrative Medical decision making narrative: Interventions / MDM: Differential diagnosis: Stress disorder with depression symptoms Diagnosis considered but do not suspect: No suicidal or homicidal ideations. My EKG interpretation: N/A Imaging independently reviewed and interpreted by myself: N/A External documents reviewed: N/A Test considered but not ordered:N/A ED course: Patient cooperative symptoms of depression and feeling overwhelmed. She has no suicidal homicidal ideations. She is here wants local follow-up in the area. I spoke with licensed nuclear control room operator in the ED who will evaluate the patient. She is given multiple resources for follow-up to get plugged into the system here. Patient more satisfied with the information here. She will follow-up as an outpatient. All questions were answered. 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 It may contain incorrect words, spelling, and punctuation that were not noted in checking the note before signing. Discharge Plan Triage Chief Complaint: Mental Health ED Provider: Betito Vu Dx/Rx/DC Orders Clinical Impression: Acute stress disorder, Depression Instructions: Stress Relief: Activities, Stress Relief: Relaxation Prescriptions: No Action lamotrigine 300 mg tablet extended release 24hr 300 mg PO QHS Primary Care Provider: Rosana Evans Referrals: Rosana Evans, ACCOUNT RESOLUTION ANALYST-C [Primary Care Provider] - Activity Restrictions/Additional Instructions: He was seen by social work in the ED. You are given multiple resources for local outpatient follow-up. Print Language: Russian Disposition Disposition: Home, Self Care Discharge Date/Time: 01/29/25 20:05
[2025-01-29 20:02] VITALS: BP 105/74; PULSE 75; RESP 14; TEMP 36.9; O2SAT 100
== END 2025-01-29 20:05 | disposition home or self-care (01) ==
PROVIDERS: Emergency Provider Emergency Medicine; PCP Nurse Practitioner Family; Visit Provider Emergency Medicine
DX: F43.0 Acute stress reaction (principal); F32.A Depression, unspecified; F17.210 Nicotine dependence, cigarettes, uncomplicated; Z79.899 Other long term (current) drug therapy
CPT/HCPCS: 99284

== ENCOUNTER 2025-02-08 08:00 | Outpatient (RCR) | payer MEDICAID, SELFPAY ==
--- NOTE | 2025-02-08 09:00 | BH.COMM_ITS ---
Communication Note Communication with Client Communication Note: Met with pt to complete paperwork, update any changes to pre-admission screening, and complete risk assessment. Low risk on [place] Suicide Screening. Consulted with Dr. Khalil regarding current symptoms with orders to admit to IOP with dx of F33.2
--- NOTE | 2025-02-08 09:05 | BH.SGPN.GN ---
Behaviors/Verbalizations/Mental Status: [] Eye contact is good. Motor activity is appropriate. Appearance is casual. Speech is Appropriate. Mood is anxious. Affect is congruent. Thoughts are linear and logical. No evidence of psychosis. Reviewed daily check in sheet and no reports of suicidal ideations or intent. Client Response/Progress/Benefit: [] Pt was an active participant in group discussions. Attentive. Daily symptom tracker notes 4/5 for anxiety and 3/5 for depression. Shared that today is her first day in IOP. Briefly introduced herself. Goals for entering IOP include ? improve emotion regulation, learn new coping skills, and learn to deal with anxiety and panic in social situations?. Peers welcomed her to the group and provided feedback regarding her first day/week in IOP which was beneficial. No progress noted as this was her first day in IOP. Will continue in IOP to prevent decompensation, increase healthy coping, and improve functioning. Narrative Note: []
--- NOTE | 2025-02-08 10:10 | BH.SGPN.GN ---
Behaviors/Verbalizations/Mental Status: [] Pt alert and oriented, casually dressed and groomed. Eye contact good. Motor activity appropriate. Speech within normal limits. Affect congruent, mood anxious and dysthymic. Thoughts linear, logical, no signs of hallucinations or delusions. Client Response/Progress/Benefit: [] Pt participated in group discussions. Attentive during psychoeducation on the CBT [place] (Thoughts, Behaviors, Emotions). Engaged in group discussion on how thoughts and behaviors can contribute to maintaining adverse feelings, such as depression, anxiety, and irritability. Completed worksheet in which pt identified obstacles and/or thoughts that are keeping them stuck. Shared obstacles that included; negative self-talk, unrealistic expectations, and fear of change. Pt benefited from increased awareness of the basis of CBT therapy as well as specific thoughts that are impacting pt's progress. Will continue in IOP to prevent decompensation, increase healthy coping, and improve functioning. Narrative Note: []
--- NOTE | 2025-02-08 10:10 | BH.SGPN.GN ---
Behaviors/Verbalizations/Mental Status: [] Pt alert and oriented, casually dressed and groomed. Eye contact good. Motor activity appropriate. Speech within normal limits. Affect congruent. mood dysthymic. Thoughts linear, logical, no signs of hallucinations or delusions. Client Response/Progress/Benefit: [] Pt was an engaged participant AEB listening attentively to others, taking notes, and providing feedback in group discussions. Attentive during psychoeducation AEB by note taking. Pt worked along with peers in groups to define inappropriate guilt and appropriate guilt. Group worked together to provide examples of both inappropriate and appropriate guilt. Group identified a lashing out and breaking something as appropriate guilt examples. Group identified setting a boundary and needing help as having inappropriate guilt about. Pt able to connect impact inappropriate guilt can have on MH and overall functioning. Noted that it has negatively impacted her ability to make healthy changes or end unhealthy relationships. Benefited from increased awareness of guilt and the differences between appropriate and inappropriate guilt. Pt to continue IOP tx to prevent decompensation, gain healthy coping skills, and increase communication skills. Narrative Note: []
--- NOTE | 2025-02-08 11:10 | BH.SGPN.GN ---
Behaviors/Verbalizations/Mental Status: []Eye contact is good. Motor activity is appropriate. Appearance is casual. Speech is Appropriate. Mood is engaged. Affect is congruent. Thoughts are linear and logical. No evidence of psychosis. Client Response/Progress/Benefit: []Pt was an engaged participant AEB listening attentively to others and providing input throughout group. Pt along with group members, identified strategies to manage inappropriate guilt. Identified a personal example of inappropriate guilt as ?feeling bad for saying no to my kids sometimes.? Pt wants to work on combatting inappropriate guilt by letting others make their own choices without feeling responsible or guilty.? Pt seemed to benefit from learning about strategies to manage appropriate and inappropriate guilt. Pt to continue IOP tx to prevent decompensation, gain healthy coping skills, and increase healthy thought patterns. Narrative Note: []
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
--- NOTE | 2025-02-10 08:00 | BH.DR.ITP ---
Initial Treatment Plan Patient Information Visit Information: ADMISSION DATE: 02/10/2025 EXPECTED LOS: 4-6 weeks Problems/Symptoms Problem #1:: PTSD Symptom:: agitation; relationship discord; anxiety
--- NOTE | 2025-02-10 09:00 | BH.SGPN.GN ---
Behaviors/Verbalizations/Mental Status: [] Pt alert and oriented, neatly dressed and groomed. Eye contact good. Motor activity appropriate. Speech within normal limits. Affect constricted, mood euthymic. Thoughts linear, logical, no signs of hallucinations or delusions. Reviewed pt?s symptom tracker, no risk for suicidal ideation, plan, or intent 02/10/25. Client Response/Progress/Benefit: []Pt was an active participant in group discussions. Attentive. Able to identify mental health wins including getting up before her alarm went off and feeling rested and accomplishing some cleaning in her house. Pt's stressor today is ?my brother in-law is watching the kids while I?m here and he said he doesn?t change diapers, so I?m going to try and not let that take all my focus.? The group offered pt suggests to manage this stressor and emotional support which pt reported was helpful. Pt is feeling ?relaxed.? this morning. Pt receptive to feedback from peers. Benefited from group support, encouragement, and feedback. Progress noted. Will continue IOP tx to increase use of healthy coping skills, improve self-compassion, and combat cognitive distortions. ? Narrative Note: []
--- NOTE | 2025-02-10 10:10 | BH.SGPN.GN ---
Behaviors/Verbalizations/Mental Status: []Eye contact is good. Motor activity is appropriate. Appearance is casual. Speech is Appropriate. Mood is content. Affect is congruent. Thoughts are linear and logical. No evidence of psychosis. Client Response/Progress/Benefit: []Pt was an active participant in group discussion. Engaged and attentive during psychoeducation and interactive discussion on coping skills, why people use unhealthy coping skills, how to replace unhealthy coping skills, and internal vs external coping skills. Attentive as peers came up with list of unhealthy coping skills. Pt reported personally, they tend to either distract or shut down. Group discussed the effects of maladaptive coping skills on mental health. Benefited from increased understanding of unhealthy coping skills and the need for developing healthy internal and external coping skills. Actively participated during experiential group activity and was able to related this activity to group topic. Will continue in IOP to promote healthy thinking patterns, apply healthy coping skills, and promote mood stability. Narrative Note: []
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
[2025-02-10 11:25] VITALS: BP 129/85; PULSE 80
--- NOTE | 2025-02-10 12:56 | BH.MDN_ITS ---
Multi-Disciplinary Note Note 30-min Individual: Time Started:: 11:20 Date: 02/10/25 Purpose of session/treatment goals addressed:: To gather information on pt's current stressors, symptoms, triggers, history, and tx goals. Another goal was to build rapport and provide emotional support. Eye Contact:: Good Motor Activity:: Appropriate Appearance:: Casual Speech:: Appropriate Mood:: Anxious, Depressed and Other (frustrated with stressors) Affect:: Congruent (tearful at times) Thoughts:: Linear, Logical and No evidence of hallucinations/delusions noted Staff Interventions:: thought challenging, rapport building, strengths perspective, treatment planning, goal setting (identified treatment goals for IOP) and other (Psychosocial assessment.) Client Response:: Pt responded well to session, open to meeting with therapist. Pt reports she is looking forward to this program as pt has been struggling for a while and wants to learn how to manage her emotions. Pt shared her biggest stressor is her relationship with her and pt stated I know I need to leave him, it's just so hard. Pt and her share four children together and this further complicates pt's plan to leave. Pt shared things in the relationship that are not healthy including her not communicating, control with money, and pt feels angry. Pt shared things got so bad I went to my moms and she is a trigger. Pt shared that growing up her mother was not emotionally regulated and pt's father left when pt was young. Pt stated her mom's emotions could be erratic and pt and her siblings had to grow up quickly. Pt noted she wants her children to have a loud childhood because I didn't get that. Pt shared that she connected with the guilt group the other day because pt feels a lot of inappropriate guilt about her choices as a mother. Pt also feels like her mother guilt-tripped her a lot which pt is trying to avoid doing to her children. Pt receptive to self-compassion and reported she benefitted from being at [facility] this week. Risks/Concerns:: Pt denies any active SI, plan, or intent as of 02/10/25. Pt denies thoughts of . Progress Toward Goals/Plan:: Pt's first week of IOP tx. Pt reports so far she has been enjoying it and feels like this program will help her a lot. Pt's primary stressor is her relationship with her and this has been impacting her mental health significantly. Pt also noted issues with irritability, feeling on edge, and not having coping skills. Pt will continue IOP tx to prevent decompensation, gain healthy coping skills, and improve daily functioning. Time Stopped:: 11:55
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
--- NOTE | 2025-02-10 12:57 | BH.MTP ---
Master Treatment Plan Patient Information Program Physician:: Dr. Nitin Khalil Primary Therapist:: Katherine MORTON Psychiatric Diagnoses Psychiatric Diagnoses:: PTSD F 44; Anxiety NOS; MDD Diagnosis Code(s):: F43 Estimated LOS Estimated LOS (in weeks):: 6 Problem/Goal #1 Problem/Goal #1 Stated Goal:: Will reduce PTSD and panic symptoms through increasing emotional regulation and distress tolerance skills Description of Barriers: Pt has four children under the age of 10 and pt reports feeling like she lives in chaos. Pt and her have a turbulent relationship and pt does not have a way to financially care for herself. Pt has limited support outside of her and when pt has to reach out to her mother it is a trauma trigger. Pt has a significant trauma history throughout childhood and adolescence. Functional Impact: Pt is a 29-year-old female with a history of MDD, Anxiety NOS, and PTSD. Pt was referred to [facility] after going to the [facility] ED on 01/29/25 as pt was feeling so overwhelmed and pt needed help. At admission pt's symptoms included poor sleep, crying spells, worthlessness, avoidance, hopelessness, low motivation, and frequent panic attacks. Pt reports she is not able to regulate her emotions and she is not functioning at home. Goal Relevant Strengths/Supports: Pt is motivated, future oriented, and reports looking forward to having time to focus on her mental health. Objectives Objective #1: Stated Objective: Pt will increase ability to manage stressors and anxiety by gaining 2-3 distress tolerance skills. Interventions: Through group and individual therapy, pt will learn various coping skills to help manage stress and anxiety. Therapist will utilize DBT distress tolerance skills to increase awareness and give pt tools to more effectively manage anxiety. Therapist will provide psychoeducation on emotional regulation and help pt identify unhealthy coping skills he wants to change. Discharge Criteria: Pt will have accomplished this goal when can report improved ability to manage stressors and identify at least 2 distress tolerance skills. Target Date: 03/22/25 Review Date: 03/01/25 Status: open Objective #2: Stated Objective: Pt will identify 2-3 PTSD and panic triggers and 2 coping skills to use when feeling anxious or overwhelmed to manage anxiety as shown by reducing DSM-5 scores for anxiety Interventions: Therapist will provide education on anxiety, trauma cycles, and PTSD Therapist will help pt explore personal symptoms and warning signs of anxiety and irritability. Therapist will teach pt coping skills to improve emotional regulation, mindfulness, and distress tolerance to help pt cope with anxiety in the moment. Discharge Criteria: Pt will have accomplished this goal when she can identify at least 2 triggers and report using 2 coping skills to manage anxiety and irritability. Additionally, pt will have accomplished this goal AEB reduction of DSM-5 scores for anxiety. Target Date: 03/22/25 Review Date: 03/01/25 Status: open Problem/Goal #2 Problem/Goal #2 Stated Goal:: Pt will decrease depressive symptoms, inappropriate guilt, worthlessness, and negative self-talk. Description of Barriers: Pt has four children under the age of 10 and pt reports feeling like she lives in chaos. Pt and her have a turbulent relationship and pt does not have a way to financially care for herself. Pt has limited support outside of her and when pt has to reach out to her mother it is a trauma trigger. Pt has a significant trauma history throughout childhood and adolescence. Functional Impact: Pt is a 29-year-old female with a history of MDD, Anxiety NOS, and PTSD. Pt was referred to IOP after going to the [facility] ED on 01/29/25 as pt was feeling so overwhelmed and pt needed help. At admission pt's symptoms included poor sleep, crying spells, worthlessness, avoidance, hopelessness, low motivation, and frequent panic attacks. Pt reports she is not able to regulate her emotions and she is not functioning at home. Goal Relevant Strengths/Supports: Pt is motivated, future oriented, and reports looking forward to having time to focus on her mental health. Objectives Objective #1: Stated Objective: Pt will learn and utilize 2-3 healthy coping strategies to better manage depressive symptoms as shown by a decrease of DMS-5 symptoms for depression. Interventions: Through group and individual sessions, therapist will help pt identify triggers and warning signs of depression and guilt including emotional, physical, and behavioral changes. Therapist will teach pt various coping skills to manage symptoms and give pt tangible resources to use to regulate emotions. Therapist will use cognitive restructuring techniques and help pt gain awareness of negative thoughts that reinforce guilt and depression. Therapist will provide psychoeducation on maintenance cycles and help pt learn ways to break unhealthy maintenance cycles. Therapist will help pt incorporate behavioral activation and assist pt in setting SMART goals. Discharge Criteria: Pt will have met this goal when can report learning and using at least 2 coping skills to manage depressive symptoms and reduce isolation. Additionally, pt will have met this goal when pt's DSM-5 scores for depression decrease. Target Date: 03/22/25 Review Date: 03/01/25 Status: open Objective #2: Stated Objective: Pt will identify at least 2-3 negative self-talk messages used to reinforce negative core beliefs, worthlessness, and isolation and replace thoughts with balanced, realistic messages. Interventions: Therapist will help pt identify distorted, negative beliefs about self and replace with more realistic, affirmative messages. Therapist will use CBT and DBT to help pt increase insight to the connection between thoughts, emotions, and behaviors. Therapist will encourage pt to practice thought challenging. Discharge Criteria: Pt will have achieved this goal when can verbalize at least 2 cognitive distortions and effectively replace those thoughts with affirmative messages. Target Date: 03/22/25 Review Date: 03/01/25 Status: open
== END 2025-02-12 23:59 ==
LOC: BHIOP 08:00
PROVIDERS: PCP Nurse Practitioner Family; Referring Provider Student in an Organized Health Care Education/Training Program; Visit Provider Student in an Organized Health Care Education/Training Program
DX: F43.10 Post-traumatic stress disorder, unspecified (principal); F41.9 Anxiety disorder, unspecified
CPT/HCPCS: H2012; H2020; S9480; 90832

== ENCOUNTER 2025-02-14 07:16 | Outpatient (RCR) | payer MEDICAID, SELFPAY ==
--- NOTE | 2025-02-15 09:05 | BH.SGPN.GN ---
Behaviors/Verbalizations/Mental Status: [] Eye contact is good. Motor activity is appropriate. Appearance is casual. Speech is Appropriate. Mood is depressed and anxious. Affect is congruent. Thoughts are linear and logical. No evidence of psychosis. Reviewed daily check in sheet and no reports of suicidal ideations or intent. Client Response/Progress/Benefit: [] Pt was an active participant in group discussions. Attentive. Daily symptom tracker notes 4/5 for depression and 3/5 for anxiety/agitation. Able to identify mental health wins and ?being up before the alarm?. Increased energy and motivation. Reports being ?excited and sad?. Today was her children?s first day of school for the year. Progress noted. Benefited from group support, encouragement, and feedback. Will continue in IOP to prevent decompensation, increase healthy coping, and stabilize emotions. Narrative Note: []
--- NOTE | 2025-02-15 10:10 | BH.SGPN.GN ---
Behaviors/Verbalizations/Mental Status: [] Client alert and oriented, casually dressed and groomed. Eye contact good. Motor activity appropriate. Speech within normal limits. Affect congruent, mood depressed. Thoughts linear, logical, no signs of hallucinations or delusions. Client Response/Progress/Benefit: [] Client responded well to session AEB contributing to discussion, taking notes, and listening attentively to others. Group discussed the benefits of managed anger and anger as a secondary emotion. Client participated in anger iceberg discussion. Group reported outward personal signs of anger as lashing out verbally, physical fights, destruction of property, self-harm, and self-sabotage. Group Identified underlying emotions that contribute to anger including being dismissed, rejection, assumptions, being lied too, and micromanaging. Appeared to benefit from increased knowledge of the underlying emotions that impact anger and increased self-awareness of the internal and external consequences of anger. Client will continue IOP program to stabilize mood, improve healthy boundaries, and prevent decompensation. Narrative Note: []
--- NOTE | 2025-02-15 11:10 | BH.SGPN.GN ---
Behaviors/Verbalizations/Mental Status: [] client alert and oriented, casually dressed and groomed. Eye contact good. Motor activity appropriate. Speech within normal limits. Affect congruent, mood euthymic. Thoughts linear, logical, no signs of hallucinations or delusions. Client Response/Progress/Benefit: [] Client was an engaged participant throughout group AEB client providing input throughout discussion. Client contributed to the continued discussion of how people express anger as well as the underlying emotions of anger. Client participated in group activity that highlighted strategies to cope with anger. Group brainstormed healthy coping skills to help prevent anger and cope with it in the moment which included: mindfulness, deep breathing, journaling, going outside, and music. Client appeared to benefit from brainstorming with the group potential strategies to manage anger in healthy ways. Recommended continued IOP to improve distress tolerance, increase healthy coping, and prevent decompensation.
--- NOTE | 2025-02-17 09:05 | BH.SGPN.GN ---
Behaviors/Verbalizations/Mental Status: [] Eye contact is good. Motor activity is appropriate. Appearance is casual. Speech is Appropriate. Mood is depressed and irritable. Affect is congruent. Thoughts are linear and logical. No evidence of psychosis. Reviewed daily check in sheet and no reports of suicidal ideations or intent. Client Response/Progress/Benefit: [] Pt was an active participant in group discussions. Attentive. Daily symptom tracker notes 4/5 for agitation and 3/5 for depression/anxiety. She reports increase anger recently which has impacted her thoughts and actions. Attempting to distract and utilize emotion regulation skills. She elaborated on psychosocial stressors which further exacerbate mental health struggles. Limited progress noted. Benefited from group support, encouragement, and feedback. Will continue in IOP to prevent decompensation, increase healthy coping, and improve functioning. Narrative Note: []
--- NOTE | 2025-02-17 10:10 | BH.SGPN.GN ---
Behaviors/Verbalizations/Mental Status: [] Eye contact is good. Motor activity is appropriate. Appearance is casual. Speech is Appropriate. Mood is content. Affect is congruent. Thoughts are linear and logical. No evidence of psychosis Client Response/Progress/Benefit: [] Pt receptive of session, actively engaged throughout AEB taking notes, providing input, and contributing in small group discussion. Appeared to connect with group topic of automatic thoughts and cognitive distortions, as well as the impact of thought patterns on mental health, coping behaviors, and relationships. This particular group is very heavy on psychoeducation and pt appeared to connect with distortions and how they can impact functioning. Identified struggling with jumping to conclusions distortions. Pt appeared to benefit from gaining insight on distorted thinking patterns and how this impacts overall mental health. Will continue IOP to stabilize mood, improve ability to function, and prevent decompensation. Narrative Note: []
--- NOTE | 2025-02-17 11:10 | BH.SGPN.GN ---
Behaviors/Verbalizations/Mental Status: [] Eye contact is good. Motor activity is appropriate. Appearance is casual. Speech is Appropriate. Mood is euthymic. Affect is congruent. Thoughts are linear and logical. No evidence of psychosis. Client Response/Progress/Benefit: [] Pt was an active participant and responded well to session AEB input and examples during group activity. Group discussed and practiced methods of reframing cognitive distortions. Client participated in identifying cognitive distortions when examples were provided. Client discussed in group the different strategies to overcome the distortions. Client identified cognitive distortion they used most often and made plan to identify and challenge thoughts that contribute to it as homework over the next couple of days. Will continue tx to further promote mood stability, improve distress tolerance skill application, maintain safety, and prevent decompensation. Narrative Note: []
--- NOTE | 2025-02-20 09:05 | BH.SGPN.GN ---
Behaviors/Verbalizations/Mental Status: [] Eye contact is good. Motor activity is appropriate. Appearance is casual. Speech is Appropriate. Mood is depressed and anxious. Affect is congruent. Thoughts are linear and logical. No evidence of psychosis. Reviewed daily check in sheet and no reports of suicidal ideations or intent. Client Response/Progress/Benefit: [] Pt was an active participant in group discussions. Attentive. Daily symptom tracker notes 3/5 for anxiety and agitation as well as 2/5 for depression. Able to identify mental health wins and healthy habits. Gave example of opposite action and thought challenging. States Sitting with the urge which has helped with impulsivity and anger management. She discussed stress, fear, and anxiety regarding making decisions about her future. She plans on making a significant change in her life and is concerned how it will impact her and those around her. Progress noted. Benefited from group support, encouragement, and feedback. Will continue in IOP to prevent decompensation, increase healthy coping, and stablize mood. Narrative Note: []
--- NOTE | 2025-02-20 10:10 | BH.SGPN.GN ---
Behaviors/Verbalizations/Mental Status: []Pt alert and oriented, casually dressed and groomed. Eye contact good. Motor activity appropriate. Speech within normal limits. Affect congruent, mood euthymic. Thoughts linear, logical, no signs of hallucinations or delusions. Client Response/Progress/Benefit: [] Pt was an attentive and active participant, AEB taking notes and providing input in group discussion. Attentive during psychoeducation. Pt engaged during interactive discussion in which the group defined self-care and discussed its benefits. Group discussed barriers and benefits to self-care. Identified benefits as being more productive, feeling more grounded, feeling happier, less irritability, and being more capable. Pt participated in small groups where they worked to identify and challenged common self-care ?myths?. Benefited from increased awareness of self-care, its benefits, and the consequences of not utilizing self-care strategies. Pt connected with myths of self-care being selfish and too expensive. Will continue IOP tx to prevent decompensation, decrease negative self-talk, and improve daily functioning. Narrative Note: []
--- NOTE | 2025-02-20 11:10 | BH.SGPN.GN ---
Behaviors/Verbalizations/Mental Status: []Client alert and oriented, casual appearance. Eye contact good. Motor activity appropriate. Speech within normal limits. Affect congruent, mood anxious. Thoughts linear, logical, no signs of hallucinations or delusions. Client Response/Progress/Benefit: [] Pt engaged participant AEB completing self-assessment worksheet and providing input throughout discussion. Pt completed worksheet identifying current self-care practices and what self-care activities pt wants to start using. Pt stated she realizes she doesn't take time for her self. Pt plans to participate in fun activities she enjoys and express feelings in a healthy way by doing art more often. Appeared to benefit from completing the self-care evaluation and gaining insights into current self-care practices, as well as identifying areas in which Pt would like to improve upon. Pt will continue IOP tx to build confidence, challenge distortions, and prevent decompensation.
--- NOTE | 2025-02-20 11:10 | BH.SGPN.GN ---
Behaviors/Verbalizations/Mental Status: []Pt alert and oriented, casually dressed and groomed. Eye contact good. Motor activity appropriate. Speech within normal limits. Affect congruent, mood euthymic. Thoughts linear, logical, no signs of hallucinations or delusions. Client Response/Progress/Benefit: []Pt engaged participant AEB completing self-assessment worksheet and providing input throughout discussion. Participated in group discussion on the various areas of self-care. Pt completed worksheet identifying current self-care practices and what self-care activities pt wants to start using. Pt engaged in self-reflection activity in which pt's were asked to identify one area of self-care they would like to improve upon. Appeared to benefit from completing the self-care evaluation and gaining insights into current self-care practices, as well as identifying areas in which pt ?would like to improve upon.?Will continue IOP to increase consistent use of healthy coping skills, challenge distorted thoughts, and prevent decompensation.
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
--- NOTE | 2025-02-27 09:05 | BH.SGPN.GN ---
Behaviors/Verbalizations/Mental Status: [] Eye contact is fair. Motor activity is appropriate. Appearance is casual. Speech is Appropriate. Mood is depressed. Affect is flat. Thoughts are linear and logical. No evidence of psychosis. Reviewed daily check in sheet and no reports of suicidal ideations or intent. Client Response/Progress/Benefit: [] Pt participated at times during group discussions, however was not as engaged as she typically has been in previous weeks. Daily symptom tracker notes 5/5 for depression/anxiety and a 4/5 for agitation. Pt declined to share today. No progress noted. Possible decompensation due to higher than baseline scores and disengagement. Informed program therapist with plan to follow up today. Benefited from group education and support. Will continue in IOP to prevent decompensation, stabilize mood, improve functioning, and increase healthy coping. Narrative Note: []
--- NOTE | 2025-02-27 10:10 | BH.SGPN.GN ---
Behaviors/Verbalizations/Mental Status: []Eye contact is fair. Motor activity is appropriate. Appearance is casual. Speech is Appropriate. Mood is anxious. Affect is congruent. Thoughts are linear and logical. No evidence of psychosis. Client Response/Progress/Benefit: []Pt participated in the group discussions AEB providing input and taking notes. Attentive during psychoeducation on SMART Goal Setting. Pt worked with group to identify common barriers to goal setting which included; mental health struggles, energy/motivation, limited support, change to routine, lack or resources, having unrealistic goals, and our internal expectations. Group also identified benefits of goals, which included: promotes a sense of accomplishment, it challenges oneself, can boast confidence, and can cause positive change/growth. Benefited from increased awareness of mental health benefits of goals as well as psychoeducation on SMART goal criteria. Will continue in IOP to increase consistent healthy coping skills, improve confidence, and prevent decompensation.
--- NOTE | 2025-02-27 11:10 | BH.SGPN.GN ---
Behaviors/Verbalizations/Mental Status: []Pt alert and oriented. Appearance is casual, hygiene is appropriate. Eye contact good. Motor activity appropriate. Speech within normal limits. Affect is engaged and stressed. Mood is congruent. Thoughts linear, logical, no signs of hallucinations or delusions. Client Response/Progress/Benefit: [] Pt was engaged during discussion and experiential activity. Completed the worksheet challenging them to develop a personal SMART goal. Pt chose a SMART goal to take a 15 minute walk by herself 3 days a week. Believes this goal will benefit pt by giving herself some renetta and pouring into her own ?cup.? Identified obstacles such as lack of support, not finding time, and her kids wanting to join. Brainstormed strategies to help manage potential barriers. Benefited from this group by developing a short-term SMART goal related to mental health. Will continue IOP to prevent decompensation, increase self-confidence, and gain healthy coping skills to manage stressors. ??? Narrative Note: []
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
--- NOTE | 2025-03-01 10:10 | BH.SGPN.GN ---
Behaviors/Verbalizations/Mental Status: []Pt alert and oriented, neatly dressed and groomed. Eye contact good. Motor activity appropriate. Speech within normal limits. Affect congruent, mood anxious and engaged. Thoughts linear, logical, no signs of hallucinations or delusions Client Response/Progress/Benefit: [] Pt took notes and contributed to group discussions. Attentive during psychoeducation on growth mindset. Interactive group discussion on fixed mindset in which group verbalized their current fixed mindsets and how they affect their mental health. Pt shared common fixed mindset thoughts they have. Pt shared a personal fixed thought I?m not doing a good enough job as a mom.? Pt able to connect negative impact fixed thoughts have on functioning. Pt benefited from increased awareness of growth mindset and fixed thoughts and how fixed thoughts impact their mental health. Will continue IOP tx to prevent decompensation due to significant marital stressor and build healthy coping skills. ? Narrative Note: []
--- NOTE | 2025-03-01 14:04 | BH.MTP_ITS ---
Treatment Plan Review Demographics Date of Admission:: 02/08/25 Date of Treatment Plan Review:: 03/01/25 Admitting Diagnoses:: PTSD F 44; Anxiety NOS; MDD Current Diagnoses:: PTSD F 44; Anxiety NOS; MDD Patient Status Patient's Response to Treatment:: Pt has responded mostly well to IOP treatment. Pt's attendance is consistent and engaged through note taking and engaging in discussions. Pt does well with peers and reports benefitting from the group topics. Pt engages well individually and is open to ideas. Pt consistently reports using the coping skills she learns outside of IOP and pt feels she is gaining a lot of self-awareness. Pt reports the program has helped her identify what is healthy and unhealthy in her life and pt feels ready to make changes. Status of Current Problems and Symptoms: Pt's biggest stressor currently is ongoing marital issues. Pt's symptoms of anxiety have increased since admission and pt's depressive symptoms remain the same since admission. Pt reports belief that she is coping better, but she still experiences irritability. Pt also reports finances as another contributor to her mood. Progress Problem #1: Problem Name:: PTSD and Panic Status of Goals:: Obj 1- in progress. Pt has learned several distress tolerance skills to help pt during times of stress and PTSD triggers. Pt reports she has been using dialectical thinking and deep breathing and this has been helping. Obj 2- not complete. Pt's scores for anxiety have increased since admission. As noted above, this is likely due to pt's current home stress. Team Recommendations:: Team recommends pt to continue working on incre asing distress tolerance and improving ability to regulate when experiencing triggers. Team also encourages pt to continue reaching out to healthy supports as pt is navigating marital stress. Problem #2: Problem Name:: Depressive symptoms Status of Goals:: obj 1- in progress. Pt's DSM-5 scores have not decreased, but they have also not worsened which is progress as pt is managing significant stressors. Obj 2- in progress. Pt is learning how to practice self- compassion and she is catching herself more when she speaks negatively. Pt is working on using dialectical thinking and giving herself credit for wins. Team Recommendations:: Treatment team encourages pt to continue working on this goal as pt's symptoms have not decreased. This is likely due to marital stress and change going on in pt's home life. Pt is also recommended to keep practicing small self-care goals.
--- NOTE | 2025-03-06 09:00 | BH.SGPN.GN ---
Behaviors/Verbalizations/Mental Status: [] Pt alert and oriented, neatly dressed and groomed. Eye contact good. Motor activity appropriate. Speech within normal limits. Affect congruent, mood anxious. Thoughts linear, logical, no signs of hallucinations or delusions. Reviewed pt?s symptom tracker, no risk for suicidal ideation, plan, or intent. Client Response/Progress/Benefit: []Pt was an active participant in group discussions. Attentive. Able to identify mental health wins as being granted a restraining order against her soon to be ex- which makes her feel much safer. Additional wins as her kids have been adjusting well to moving in with pt's family. Pt's stressor today is having to meet with her consumer attorney to review next steps for the divorce. The group offered pt encouragement and emotional support which pt reported was helpful. Pt is feeling anxious and optimistic? this morning. Pt receptive to feedback from peers. Progress noted. Benefited from group support, encouragement, and feedback. Will continue IOP tx to promote healthy coping, challenge negative thoughts, and prevent decopmensation.
--- NOTE | 2025-03-06 10:15 | BH.SGPN.GN ---
Behaviors/Verbalizations/Mental Status: []Pt alert and oriented, casually dressed and groomed. Eye contact good. Motor activity appropriate. Speech within normal limits. Affect congruent, mood euthymic. Thoughts linear, logical, no signs of hallucinations or delusions. Client Response/Progress/Benefit: [] Pt participated during small group discussions. Attentive during psychoeducation about defense mechanisms. Showed engagement during small group discussions and helped group identify which defense mechanisms were maladaptive, adaptive, or ?somewhere in the hall.? Pt worked with small group on identifying how each defense mechanism can impact mental health and gave examples. Group was mostly educational and pts discussed the different types of defense mechanisms. Pt reported benefits from identifying examples of different defense mechanisms and normalizing why they are used. Seemed to benefit from gaining awareness about the different defense mechanisms. Pt to continue IOP tx to prevent decompensation due to marital stress and to increase distress tolerance skills. ?? Narrative Note: []
--- NOTE | 2025-03-06 13:56 | BH.MDN_ITS ---
Multi-Disciplinary Note Note 60-min Individual: Time Started:: 11:20 Date: 03/06/25 Purpose of session/treatment goals addressed:: To process current stressors and how pt is coping with these. Eye Contact:: Good Motor Activity:: Appropriate Appearance:: Casual Speech:: Appropriate Mood:: Euthymic and Anxious Affect:: Full Thoughts:: Linear, Logical and No evidence of hallucinations/delusions noted Staff Interventions:: thought challenging, CBT techniques, discharge planning, strengths perspective and other (Discussed triggers living with mom and how pt is coping with this. Discussed strategies to help with self- compassion) Client Response:: Pt responded well to session, open to meeting with therapist. Pt shared she and her children are doing well living with her mother and step-father. Pt shared she followed through with getting a restraining order and she meets with a upholstery trimmer later this week. Pt feels anxious, but she is continuing to remind herself of why she is doing this and how this will continue to help her life and her children's lives. Pt stated there have been some triggers living with mom, but pt is doing her best to work through these. Pt has had discussions with her children about the differences in pt's vs her mother's parenting styles. Pt reinforced the positive ways she has been breaking cycles of trauma in her life for her and her children. Discussed self-compassion as pt is continuing in this journey as it will be full of positives and negatives. Pt's positives include being more affectionate with her children, communicating with her children, not avoiding strong emotions, and leaving her relationship. Pt stated she is also looking into finding a job and trying to get a place for her and her children that is close to her mother, but still gives pt some space. Pt receptive to looking into therapy options in her area and following up with her upholstery trimmer this week. Risks/Concerns:: Pt denies any active SI, plan, or intent. Pt reports feeling much less stressed and fearful now that she is living with mom. Progress Toward Goals/Plan:: Pt is progressing in IOP AEB pt following through with her goals of from her , increasing self-care, and utilizing healthy coping skills consistently. Pt reports reduction in anxiety and depressive symptoms since moving out and pt reports her children have been doing better as well. Pt still has barriers including transportation and living over an hour away currently, so pt plans to attend IOP only twice a week. Pt will continue IOP to promote mood stability, increase distress tolerance, and promote self-care. Time Stopped:: 12:15
--- NOTE | 2025-03-10 07:47 | PCM.BH.PN_ITS ---
Intake Vital Signs
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
--- NOTE | 2025-03-10 09:05 | BH.SGPN.GN ---
Behaviors/Verbalizations/Mental Status: [] Eye contact is good. Motor activity is appropriate. Appearance is casual. Speech is Appropriate. Mood is anxious. Affect is congruent. Thoughts are linear and logical. No evidence of psychosis. Reviewed daily check in sheet and no reports of suicidal ideations or intent. Client Response/Progress/Benefit: [] Pt participated at times during the group discussions. Attentive. Daily symptom tracker notes 3/5 for anxiety and 2/5 for depression. Pt shared several recent changes in her life related to from her and moving in with her mother. Stressors related to kids adjusting to new home and school. Despite these stressors she remains confident and proud of herself for making these changes for herself and her children. 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 Remains fearful of her ex stating that he continues to reach out despite a PO. Progress noted. Benefited from group support, encouragement, and feedback. Will continue in IOP to prevent decompensation, increase healthy coping, and improve functioning. Narrative Note: []
--- NOTE | 2025-03-10 10:10 | BH.SGPN.GN ---
Behaviors/Verbalizations/Mental Status: [] Client alert and oriented, casual appearance. Eye contact good. Motor activity appropriate. Speech within normal limits. Affect congruent, mood anxious. Thoughts linear, logical, no signs of hallucinations or delusions. Client Response/Progress/Benefit: [] Pt receptive to session AEB contributing to small group discussion, as well as listening attentively to others, and taking notes. Worked with group to brainstorm the positive and negative aspects of stress on physical and mental health. Group did well to identify the benefits of stress as well as the impact of distress on performance, relationships, and mental health. Pt identified their personal top stressors as: Home life, work, and missing therapy because of work. Patient stated when his stress is overwhelming he often lashes out at others. Pt seemed to benefit from increased awareness of current stressors and impact stress has on mental health. Pt will continue IOP tx to promote use of healthy coping skills, continue to challenge negative distorted thoughts, and prevent decompensation.
--- NOTE | 2025-03-13 09:00 | BH.SGPN.GN ---
Behaviors/Verbalizations/Mental Status: [] Pt alert and oriented, casually dressed and groomed. Eye contact good. Motor activity appropriate. Speech within normal limits. Affect congruent, mood calm. Thoughts linear, logical, no signs of hallucinations or delusions. Reviewed pt?s symptom tracker, Pt indicated 0/5 risk of suicidal ideation with 5 being severe, indicated 0/5 risk for intent to kill self. Does not appear to be imminent risk to harm self or others. 03/13/25. Client Response/Progress/Benefit: []Pt was an active participant in group discussions. Attentive. Per patients daily symptom tracker, pt indicates a 2/5 for depression, with a 5 being severe, and a 3/5 for anxiety. Pt stated that her mental health positives were being able to be more independent and prioritizing her wants and needs. She also stated that she feels that she has more freedom, is getting a job, and that her overall decrease in anxiety has allowed her to connect more with her children. Pt reported her stressor as being an upcoming court date with her previous partner, stating that she hopes he does not show up so that she does not feel so anxious and angry. Pt seemed to benefit from support from peers. Will continue IOP services to promote increased mood, prevent decompensation, and increase use of coping skills.
--- NOTE | 2025-03-13 10:15 | BH.SGPN.GN ---
Behaviors/Verbalizations/Mental Status: []Pt alert and oriented, casually dressed and groomed. Eye contact good. Motor activity appropriate. Speech within normal limits. Mood is present/engaged. Affect is congruent. Thoughts linear, logical, no signs of hallucinations or delusions. Client Response/Progress/Benefit: [] Pt was an active?participant in group discussions and experiential activity. Worked with peers to identify benefits of healthy relationships which included; support, shared experiences, laughter, understanding, and perspective challenge. Group identified factors that lead to unhealthy relationships which included; low self-esteem, trauma-bonding, poor communication, and manipulation/toxic behaviors. Pt reported stated a toxic relationship led to extreme depression and low self-esteem. Benefited from increased insight and awareness of benefits of healthy relationships and factors that contribute to unhealthy relationships. Will continue IOP to improve confidence, challenge distortions, and prevent decompensation.
--- NOTE | 2025-03-13 11:15 | BH.SGPN.GN ---
Behaviors/Verbalizations/Mental Status: []Pt alert and oriented, casually dressed and groomed. Eye contact good. Motor activity appropriate. Speech within normal limits. Mood engaged. Affect congruent. Thoughts linear, logical, no signs of hallucinations or delusions. Client Response/Progress/Benefit: [] Pt responded well to session, engaged and taking notes throughout. Worked with group to connect components of the experiential activity with characteristics of healthy and unhealthy relationships. Attentive during psychoeducation about characteristics of healthy, unhealthy, and abusive relationships. Pt identified wanting to work on improving her communication with others, especially when angry. Appeared to benefit from identifying current healthy relationship attributes. Pt to continue IOP tx to promote mood stability, reduce negative thinking patterns, and reinforce healthy coping skills. Narrative Note: []
== END 2025-03-14 23:59 ==
LOC: BHIOP 07:16
PROVIDERS: PCP Nurse Practitioner Family; Referring Provider Student in an Organized Health Care Education/Training Program; Visit Provider Student in an Organized Health Care Education/Training Program
DX: F43.10 Post-traumatic stress disorder, unspecified (principal); F41.9 Anxiety disorder, unspecified; F32.9 Major depressive disorder, single episode, unspecified
CPT/HCPCS: H2012; H2020; S9480; 90834; 90837

== ENCOUNTER 2025-03-16 07:25 | Outpatient (RCR) | payer MEDICAID, SELFPAY ==
--- NOTE | 2025-03-20 10:15 | BH.SGPN.GN ---
Behaviors/Verbalizations/Mental Status: [] Pt alert and oriented, casually dressed and groomed. Eye contact good. Motor activity appropriate. Speech within normal limits. Affect congruent, mood content. Thoughts linear, logical, no signs of hallucinations or delusions. Client Response/Progress/Benefit: [] Pt participated in group discussions. Attentive during psychoeducation on the CBT [place] (Thoughts, Behaviors, Emotions). Engaged in group discussion on how thoughts and behaviors can contribute to maintaining adverse feelings, such as depression, anxiety, and irritability. Completed worksheet in which pt identified obstacles and/or thoughts that are keeping them stuck. Shared obstacles that included; fear of the unknown, loneliness, self-doubt, and poor distress tolerance. Pt benefited from increased awareness of the basis of CBT therapy as well as specific thoughts that are impacting pt's progress. Will continue in IOP to prevent decompensation, increase healthy coping, and improve functioning. Narrative Note: []
--- NOTE | 2025-03-20 11:15 | BH.SGPN.GN ---
Behaviors/Verbalizations/Mental Status: []Pt alert and oriented, casually dressed and groomed. Eye contact good. Motor activity appropriate. Speech within normal limits. Affect congruent, mood anxious. Thoughts linear, logical, no signs of hallucinations or delusions. Client Response/Progress/Benefit: [] Pt responded well to session, contributing to discussion and attentive throughout. Pt identified a negative thought that has kept them stuck. Pt's thought was it would be easy to go back.? Pt reported when they think this way, pt wants to go back to old patterns and self-sabotage. ?Pt worked to reframe the thought by finding more rational, realistic ways to look at the thoughts and then processed them within group setting. Pt reframed the thought to ?it actually won?t be easier and I?m better off in every way not going back.? Pt appeared to benefit from practicing challenging negative thinking with peers and gaining coping skills. Pt will continue IOP tx to promote self-confidence, further increase use of healthy coping skills, and establish aftercare. Narrative Note: []
--- NOTE | 2025-03-20 13:16 | BH.MDN ---
Multi-Disciplinary Note Note 60-min Individual: Time Started:: 09:15 Date: 03/20/25 Purpose of session/treatment goals addressed:: To process the loss of her grandmother and to discuss progress. Eye Contact:: Good Motor Activity:: Appropriate Appearance:: Neat Speech:: Appropriate and Rambling Mood:: Euthymic Affect:: Full Thoughts:: Linear, Logical and No evidence of hallucinations/delusions noted Staff Interventions:: thought challenging, motivational interviewing, CBT techniques, discharge planning and strengths perspective Client Response:: Pt responded well to session, open to meeting with therapist. Pt reports since last session, she has been doing mostly well, but pt's grandma recently so pt has been grieving. Pt shared I've had my days of crying and I'm trying to be there for my mom. Pt spent some time in session talking about her grandma, sharing memories and discussing how she has been coping with her loss. Pt also talked about how she has been handling this loss and talking about it with her children. Pt shared belief that her relationship with her mother has actually been strengthened by the loss of pt's grandma. Pt and her mother have had a turbulent relationship over the years, but since pt moved back in with her mother, they have been working on their relationship. Pt stated she feels grateful that her mom and her stepdad have been helping pt through this difficult time of getting a divorce. Pt shared there is not much to update on pt's divorce, but pt is hoping things do not get too messy. 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 Pt was scheduled to discharge from [facility] this week, but pt wants to wait and see how I'm doing as pt has a lot of stressors currently. Pt and therapist discussed options for therapy closer to pt's new home and pt was given some options. Pt receptive to looking into these places and making calls. Risks/Concerns:: Pt denies any suicidal ideation, plan, or intent. Pt denies any thoughts of . Progress Toward Goals/Plan:: Pt continues to make progress towards her tx goals AEB pt's self-report of using coping skills to manage her grief and the multiple changes in her life. Pt stated she is not yet sure if she wants to discharge this week as pt's grandma last week. Pt does feel that she is managing her emotions much better than she would have in the past. Pt and therapist working on establishing outpatient care closer to pt's new address. Pt will continue IOP tx to promote mood stability, reinforce healthy coping skills, and establish aftercare. Time Stopped:: 10:10
--- NOTE | 2025-03-24 10:15 | BH.SGPN.GN ---
Behaviors/Verbalizations/Mental Status: []Pt alert and oriented, neatly dressed and groomed. Eye contact good. Motor activity appropriate. Speech within normal limits. Affect congruent, mood anxious and proud. Thoughts linear, logical, no signs of hallucinations or delusions. Client Response/Progress/Benefit: [] Pt engaged and actively participating in discussion, taking notes. Pt attentive during psychoeducation about the window of tolerance and noted personal connections. Group identified what contributes to low distress tolerance. The group gained awareness of the three zones of tolerance and pt was able to identify what they look like in each zone. Pt shared personal signs in hyperarousal zone are: yelling, slamming things, and feeling light-headed. Pt shared signs in the window of tolerance, they feel confident, positive, and easy going. Pt appeared to benefit from psychoeducation on distress tolerance and practicing self-reflection. Pt will discharge from IOP tx as pt has met their tx goals and no longer meets criteria for IOP level of care. Narrative Note: []
--- NOTE | 2025-03-24 10:31 | BH.AFTERPLAN ---
Aftercare Plan Demographics Treatment End Date:: 03/24/25 Psychiatrist:: Nitin Khalil Psychiatrist Office #:: [phone] [facility]/IOP Therapist:: Katherine Barnard Therapist Phone #:: [phone] Medications Home Medications lamotrigine 300 mg tablet,extended release 24 hr 300 mg PO QHS 06/27/24 fluoxetine 20 mg capsule 20 mg PO DAILY #30 caps 03/10/25 Plan Details Progress/Aftercare Plan Details:: Pt has responded well to treatment as evidenced by Pt consistently attending IOP sessions and her reduction of DSM-5 scores since admission. Pt was always attentive and receptive to learning during group and individual sessions. Pt actively applied coping skills outside of IOP and reports overall her mood is improved and she is functioning better than she was several months ago. Pt?s overall symptom reduction is 61% since admission with anger decreasing by 33%, depression decreasing by 67%, and anxiety decreasing by 44%. Pt has increased self-compassion and faced many hard things. Most importantly, Pt has become more vulnerable, assertive, and confident in her abilities. Pt will follow up with Dr. Khalil for medication management and [facility] Estes for individual therapy. Strategies for Success:: 1. Opposite action! Continue to break that cycle of anxiety, guilt, and depression by not letting emotions be the only drivers of your bus. 2. Remember that thoughts are thoughts NOT facts! You have power in if you give thoughts the time of day or not. 3. self-care! You deserve to take time for you and you also deserve to face the not so fun self-care like delegating tasks and advocating for yourself 4. Self-compassion! You are human and you will make a mistake?BUT that doesn?t mean you are a failure or not good enough. Remember there are no bad parts! 5. Continue to practice acceptance and remember that it is okay to be AVERAGE! 6. Practice positive self-talk and keep track of your wins. 7. Remember progress isn?t linear! You may have a setback or bump in the road, but that doesn?t mean you?ve lost all progress. 8. self-reflection and self-awareness. 9. Be understanding with yourself and try to see the whole picture, not just the snapshot. 10. Live in the saavedra!! Appointments Appointments/Referrals to Other Services:: 1. Dr. Khalil on 04/26/25 2. Follow up with Tena Estes
--- NOTE | 2025-03-24 10:32 | BH.DS ---
Discharge Summary Demographics Date of Admission:: 02/08/25 Discharge Date: 03/24/25 Presenting Problems at Admission:: Pt is a 29-year-old female with a history of MDD, Anxiety NOS, and PTSD. Pt was referred to [facility] after going to the [facility] ED on 01/29/25 as pt was feeling so overwhelmed and pt needed help. At admission pt's symptoms included poor sleep, crying spells, worthlessness, avoidance, hopelessness, low motivation, and frequent panic attacks. Pt reports she is not able to regulate her emotions and she is not functioning at home. Discharge Diagnoses:: PTSD F 44; Anxiety NOS; MDD Reason for Discharge:: Pt has accomplished her tx goals AEB her reduction of DMS-5 symptoms, her self-report of improved functioning and mood, and improved outlook. Pt no longer meets criteria for [facility] level of care and will discharge to outpatient counseling. Treatment Progress During Treatment & Response: Pt has responded well to treatment as evidenced by Pt consistently attending IOP sessions and her reduction of DSM-5 scores since admission. Pt was always attentive and receptive to learning during group and individual sessions. Pt actively applied coping skills outside of IOP and reports overall her mood is improved and she is functioning better than she was several months ago. Pt?s overall symptom reduction is 61% since admission with anger decreasing by 33%, depression decreasing by 67%, and anxiety decreasing by 44%. Pt has increased self-compassion and faced many hard things. Most importantly, Pt has become more vulnerable, assertive, and confident in her abilities. Pt will follow up with Dr. Khalil for medication management and [facility] for individual therapy. Issues Still to be Addressed:: Pt can benefit from ongoing therapy to help pt navigate the changes going on her and her children's lives. Pt can also benefit from working on strengthening boundaries, self-confidence, and thought challenging skills. Discharge Recommendations/Instructions:: Pt will follow up with Dr. Khalil for medication management and has an appointment on 04/26/25. Pt has a list of therapists that are closer to the area pt recently moved to and pt plans to call to schedule. Pt is unable to do IOP aftercare. Discharge Handout
--- NOTE | 2025-03-24 11:15 | BH.SGPN.GN ---
Behaviors/Verbalizations/Mental Status: []Pt alert and oriented, casually dressed and groomed. Eye contact good. Motor activity appropriate. Speech within normal limits. Affect congruent, mood euthymic. Thoughts linear, logical, no signs of hallucinations or delusions. Client Response/Progress/Benefit: [] Pt responded well to session AEB taking notes and contributing to discussion throughout. Pt engaged as group continued discussion on distress tolerance and the mental health benefits of widening their overall Window of Tolerance. Pt engaged with group in experiential activity provided input on connections between variables in the activity and distress tolerance. Worked within small groups to identify strategies to increase distress tolerance and reduce hyper-arousal and hypo-arousal states. Identified wanting to begin implementing distress tolerance skills of: coloring, deep breathing, and talking to healthy supports. Pt appeared to benefit from gaining insight and learning strategies to increase distress tolerance. Pt will d/c from IOP today and continue on outpatient level to prevent decompensation. Narrative Note: []
== END 2025-03-24 12:37 | disposition home or self-care (01) ==
LOC: BHIOP 07:25
PROVIDERS: PCP Nurse Practitioner Family; Referring Provider Student in an Organized Health Care Education/Training Program; Visit Provider Student in an Organized Health Care Education/Training Program
DX: F43.10 Post-traumatic stress disorder, unspecified (principal); F41.9 Anxiety disorder, unspecified; F32.9 Major depressive disorder, single episode, unspecified
CPT/HCPCS: H2012; S9480; 90837